=== PATIENT | female | born 1935 | race Caucasian/White ===

== ENCOUNTER 2019-06-17 08:15 | Outpatient (RCR) | payer MEDICARE, SELFPAY | END 2019-12-27 23:59 | disposition home or self-care (01) | LOC: OPREHAB 08:15 | PROVIDERS: PCP Emergency Medicine | DX: M97.11XD Periprosthetic fracture around internal prosthetic right knee joint, subsequent encounter (principal) | CPT/HCPCS: 97110; 97162 ==

== ENCOUNTER 2019-09-22 13:56 | Outpatient (CLI) | payer MEDICARE, SELFPAY ==
--- NOTE | ~2019-09-22 | CT_ITS ---
EXAMINATION: CTA abd aorta runoff DATE: 09/22/2019 15:32 INDICATION: Ulcer of the left lower extremity TECHNIQUE: Computed tomographic angiography (CTA) of the abdomen, pelvis, and both lower extremities was performed with 150 mL Omnipaque-350 intravenous contrast. The dose-length product (DLP) was 1872. 34 mGy-cm. Maximum intensity projection 3D-reconstructions of the arteries were created by the [employer] on a separate workstation. Automated exposure control and iterative reconstruction technique w ere employed. COMPARISON: None. FINDINGS: ABDOMINAL AORTA AND ITS BRANCHES: There is minimal calcified atherosclerosis of the aorta without aneurysm or dissection. The splenic a rtery arises directly from the abdominal aorta. Single renal arteries are present. The superior mesen teric artery and inferior mesenteric artery appear normal. PELVIC VASCULATURE: There is minimal calcified atherosclerosis without hemodynamically significant stenosis. RIGHT LOWER EXTREMITY VASCULATURE: Streak artifact from orthopedic hardware in the right femur are somewhat limits evaluation of the thy roid in the vessels however, no hemodynamically significant stenosis is identified. There is a three- vessel runoff at the ankle. LEFT LOWER EXTREMITY VASCULATURE: Streak artifact from knee arthroplasty limits evaluation of the popliteal artery. The peroneal artery is diminutive in its distal aspect just above the ankle. There is a two-vessel runoff at the ankle. No additional hemodynamically significant stenosis is identified. ADDITIONAL FINDINGS: There is mild dependent atelectasis of the visualized lung bases. The heart size is normal. A moderat e-sized sliding hiatal hernia is present. The liver, gallbladder, pancreas, and adrenal glands are no rmal. Punctate calcifications in an otherwise normal spleen likely represent healed granulomatous dis ease. An IVC filter is noted. There is cortical thinning of the kidneys. No pathologically enlarged a bdominal or pelvic lymph nodes are identified. There is no free intraperitoneal gas or evidence of migdalia wel obstruction. Colonic diverticulosis is present without evidence of diverticulitis. There is a rig ht inguinal hernia containing a short segment of nonobstructed small bowel. There is severe lumbar sp ondylosis. There is a burst fracture of T12 with vertebroplasty change. There appears to be asymmetri c soft tissue edema of the left foot compared to the right. IMPRESSION: 1. Diminutive distal peroneal artery with two-vessel runoff at the left ankle. 2. Right inguinal hernia containing a short segment of nonobstructed small bowel. Reviewed, dictated and finalized at location A. ORN PHOTOGRAPHER IMPRESSION: 1. Diminutive distal peroneal artery with two-vessel runoff at the left ankle. 2. Right inguinal hernia containing a short segment of nonobstructed small herve l.
[2019-09-22 15:04] LABS: Blood Urea Nitrogen 48 mg/dL (8-26); Estimated Glomerular Filt Rate 33
== END 2019-09-22 13:57 | disposition home or self-care (01) ==
PROVIDERS: Visit Provider Internal Medicine Cardiovascular Disease
DX: L97.929 Non-pressure chronic ulcer of unspecified part of left lower leg with unspecified severity (principal); K40.90 Unilateral inguinal hernia, without obstruction or gangrene, not specified as recurrent
CPT/HCPCS: 75635; Q9967

== ENCOUNTER 2019-11-22 07:20 | Outpatient (RCR) | payer MEDICARE, SELFPAY ==
[2019-09-20 13:50] VITALS: BMI 38.1
--- NOTE | 2019-10-25 13:18 | PCWOUND ---
WOCNNOTE Patient cancelled due to illness, rescheduled.
--- NOTE | 2019-11-22 12:32 | OPWOUND ---
Visit Care Team Role Provider Type Primary Care Provider Jeovany Skinner MD Attending Provider Physician Wound Assessment Report Outpatient Wound/Drain Assessment Start: 09/20/19 13:44 Freq: .EACH VISIT Status: Active Protocol: Document 11/22/19 12:27 [facility] (Rec: 11/22/19 12:29 [facility] [id number]) Wound Assessment Left Anterior Lower Leg(s) Wound Type Ulcer, Venous Stasis Wound Description Draining,Unapproximated Surrounding Tissue Edematous, Pitting Drainage Amount Moderate Drainage Description Serosanguinous Drainage Odor None Dressing Status Changed Dressing Type Gauze Pads,Mepilex Transfer, Wound Gel - Silver Wound Cleanser Type SAF Clens Length (cm) 3 Width (cm) 3 Depth (cm) 0.3 Healthy Tissue (%) 60 Slough (%) 40 Additional Wound Comments 4+ pitting edema to the lower leg and foot. Patient not wearing her compression stockings at visit. Surrounding tissue without erythema,warmth. Will continue the current treatment plan. cleansed wound bed of slough. Silver gel applied to the wound bed, covered with Mepilex transfer and a dry gauze dressing. Patient has a moderate amount of discomort with debridement of wound. Will continue to follow every two weeks for treatment. Pateint refuses to wear compression or try compression wrap therapy for healing. Educated on need for comrpession. pt states understanding. wound remains the same size. patient still refuses compression therapy.
== END 2019-12-19 23:59 | disposition home or self-care (01) ==
LOC: ANHWOC 07:20
PROVIDERS: Visit Provider Internal Medicine Cardiovascular Disease
DX: L97.929 Non-pressure chronic ulcer of unspecified part of left lower leg with unspecified severity (principal)
CPT/HCPCS: 99212; 99213; G0463

== ENCOUNTER 2020-01-13 12:30 | Outpatient (RCR) | payer MEDICARE, SELFPAY ==
--- NOTE | 2019-11-15 14:43 | PTOPEVAL ---
PHYSICAL THERAPY EVALUATION AND PLAN OF CARE Thank you for referring this patient to [facility]. Zohreh will be scheduled for physical therapy 2x/week for 4-6weeks. Please review, sign, date and return this plan of care FIDENCIO. I agree with and certify that the following plan of care is medically necessary. 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 She was in and out of the intermediate for almost a year . She was at home when she broke the femur the 2nd time. The 2nd time was near [place] of 2018. She has internal fixation of right knee joint. She went to [facility] for almost 3 months for rehabilitation most recently. She has been home from [facility] since July 2019. She feels as though the knee is getting worse in the sense that it is getting tighter and it pops when I sit and when I stand. 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
--- NOTE | 2019-11-29 10:38 | PCPTNOTE ---
Patient called & cancelled scheduled appointment this date stated she overslept
--- NOTE | 2019-12-01 14:56 | PCPTNOTE ---
Patient arrived to schedule appointment an hour after appointment time stating she believes she broke her big toe having difficulty getting foot into shoe taking more time to get ready. Apologized to patient about being unable to make up her appointment at that time due to fully booked schedule and offered a later appointment due the day but she declined. Educated patient on calling MD if she is concerned about her toe and will see her next week.
--- NOTE | 2019-12-09 10:33 | PTOPEVAL ---
PHYSICAL THERAPY PLAN OF CARE UPDATE AND PROGRESS REPORT Thank you for referring Zohreh Oakes to [facility]. I recommend Zohreh continue skilled PT 2x/week for 4 weeks to continue strengthening and improving function. Please review, sign, date and return this plan of care FIDENCIO. I agree with and certify that the following plan of care is medically necessary. 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 Reports that Family while there continues to be quite a bit of popping in the knee is seems to be less than before. Also states that the pain is overall better Pain Assessment Timing of Pain Assessment Timing of Pain Assessment Pre-Treatment Pain Scale Pain Scale Used Numeric (1 - 10) Self Report Pain Assessment Right Knee(s) Reported Pain Level 4 Pain Description Aching,Soreness,Tightness Pain Frequency Chronic,Intermittent Pain Aggravating Factors Exercise/Activity,Walking, Weight Bearing/Standing Pain Behaviors None Pain Score Pain Score 4: Self Report Lower Extremity Range of Motion Knee Range of Motion Right Knee Flexion Range of Motion - Active 82 Knee Extension Range of Motion - Active 15 Query Text: Lower Extremity Muscle Strength Testing Hip Strength Right Hip Flexion Strength 4+ Good + Hip Extension Strength 3+ Fair + Hip Abduction Strength 3- Fair - Knee Strength Right Knee Flexion Strength 4 Good Knee Extension Strength 4+ Good + Balance Assessment Witt Balance Assessment Sitting to Standing Independent w/Hands Unsupported Stance Ability Safely- 2 minutes Sitting Unsupported, Feet on Floor Safely- 2 minutes Standing to Sitting Assist, Use Legs on Chair Transfer Ability Safely, Hand Use Unsupported Stance- Eyes Closed Supervision, 10 seconds Unsupported Stance- Feet Together Independent, 1 minute Reaching Forward while Standing Safely, 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
--- NOTE | 2019-12-16 10:22 | PCPTNOTE ---
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
--- NOTE | 2019-12-20 07:50 | PCPTNOTE ---
Patient called & cancelled scheduled appointment this weeks due to going out of town.
--- NOTE | 2020-01-05 13:11 | PTOPEVAL ---
PHYSICAL THERAPY PLAN OF CARE UPDATE AND PROGRESS REPORT Thank you for referring Zohreh Oakes to [facility]. I recommend Carleen continue PT 1-2x/week for 4 weeks. Please review, sign, date and return this plan of care FIDENCIO. I agree with and certify that the following plan of care is medically necessary. 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 She reports that overall her pain has improved, but that the popping in the knee is the same. The popping is not as painful as it was. Self Report Pain Assessment Right Knee(s) Reported Pain Level 2 Pain Description Aching,Soreness Pain Frequency Chronic,Intermittent Pain Aggravating Factors Exercise/Activity,Walking, Weight Bearing/Standing Pain Behaviors None Pain Score Pain Score 2: Self Report Lower Extremity Range of Motion Knee Range of Motion Right Knee Flexion Range of Motion - Active 96 Knee Extension Range of Motion - Active 6 Query Text: Lower Extremity Muscle Strength Testing Hip Strength Right Hip Flexion Strength 5 Normal Hip Extension Strength 3+ Fair + Hip Abduction Strength 3 Fair Knee Strength Right Knee Flexion Strength 5 Normal Knee Extension Strength 4+ Good + Witt Balance Assessment Sitting to Standing Independent w/Hands Unsupported Stance Ability Safely- 2 minutes Sitting Unsupported, Feet on Floor Safely- 2 minutes Standing to Sitting Assist, Control w/Hands Transfer Ability Safely, Hand Use Unsupported Stance- Eyes Closed Safely, 10 seconds Unsupported Stance- Feet Together Independent, 1 minute Reaching Forward while Standing Safely, 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
--- NOTE | 2020-01-17 10:48 | PCPTNOTE ---
PHYSICAL THERAPY DISCHARGE NOTE Patient:Zohreh Oakes Date of :1935 This clinic was notified that patient is going to start working with home health care physical therapy; therefore (he/she) will be discharged at this time. Patient?s initial visit was on 11/15/2019. The goals have been partially met. Thank you for referring this patient to [facility]. Please review, sign, date and return this discharge summary FIDENCIO. I have been updated about the patient's current status and I agree with discharge from the above service at this time. Referring Physician Date
== END 2020-01-17 12:12 | disposition home or self-care (01) ==
LOC: ANHPT 12:30
DX: M97.11XD Periprosthetic fracture around internal prosthetic right knee joint, subsequent encounter (principal)
CPT/HCPCS: 97110; 97112; 97140; 97162

== ENCOUNTER 2021-01-11 12:02 | Outpatient (CLI) | payer MEDICARE, SELFPAY ==
--- NOTE | ~2021-01-11 | XR_ITS ---
XR_[id number]_CR DATE: 01/11/2021 12:22 INDICATION: Neck pain, right hand tingling TECHNIQUE: Open-mouth, AP, lateral views COMPARISON: None FINDINGS: Multiple surgical clips are noted in the anterior lower medial left cervical soft tissues. There is diffuse osteopenia. C1 and C2 are normally aligned and the odontoid process is intact. There is moderate degenerative disc disease at C2-3. There is severe degenerative disc disease at C3-4. There is moderately severe degenerative disc disease at C5-6 and C6-7. No fracture or dislocation or locked facet. No prevertebral soft tissue swelling. IMPRESSION: Diffuse osteopenia Multi-level degenerative disc disease Reviewed, dictated and finalized at Location A. Reviewed, dictated and finalized at location B.
== END 2021-01-11 12:03 | disposition home or self-care (01) ==
LOC: ANHIMG 12:09
PROVIDERS: PCP Emergency Medicine; Visit Provider Emergency Medicine
DX: R20.0 Anesthesia of skin (principal); R20.2 Paresthesia of skin; M85.88 Other specified disorders of bone density and structure, other site; M50.30 Other cervical disc degeneration, unspecified cervical region
CPT/HCPCS: 72040

== ENCOUNTER 2021-01-15 09:20 | Outpatient (CLI) | payer MEDICARE, SELFPAY ==
--- NOTE | ~2021-01-15 | MM_ITS ---
EXAMINATION: MM screening jayme BI w néstor HISTORY: Screening mammogram TECHNIQUE: Craniocaudal and mediolateral oblique 3-D tomosynthesis images were obtained and synthetic 2-D images were generated. CAD analysis was submitted and interpreted. COMPARISON: , to bilateral digital screening mammogram examinations BREAST PARENCHYMAL COMPOSITION: There are scattered areas of fibroglandular density. FINDINGS: There is no evidence of suspicious mass, calcification, or architectural distortion to sugg est malignancy in either breast. There has been no suspicious interval change. IMPRESSION: 1. No mammographic evidence of malignancy. 2. Recommend routine screening mammography in one year. BI-RADS Category 1: Negative Reviewed, dictated and finalized at location A.
== END 2021-01-15 09:21 | disposition home or self-care (01) ==
PROVIDERS: PCP Emergency Medicine; Visit Provider Emergency Medicine
DX: Z12.31 Encounter for screening mammogram for malignant neoplasm of breast (principal)
CPT/HCPCS: 77063; 77067

== ENCOUNTER → 2021-02-27 11:04 | Outpatient (CLI) | payer MEDICARE, SELFPAY ==
--- NOTE | ~2021-02-27 | XR_ITS ---
XR hip RT 2V w AP pelvis DATE: 02/27/2021 12:15 INDICATION: Right hip pain TECHNIQUE: AP pelvis. AP and lateral views of the right hip and right femur COMPARISON: 01/06/2015 right hip FINDINGS: An IVC filter is noted at the L2-3 level. Diffuse osteopenia. Multilevel degenerative disc disease of the lumbar and lumbosacral spine. The pubic symphysis and sacroiliac joints are intact. 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 No pelvic fracture or bone destruction is detected. Right bipolar hip prosthesis. There is a long plate secured by transverse screws along the lateral aspect of the femoral shaft and lateral femoral condyle. There is a long stem femoral articular prosthesis a right knee joint replacement. There is a recent, dictated fracture of the greater trochanter of the right femur IMPRESSION: Recent comminuted fracture of the greater trochanter of the right femur Right hip and knee replacements, right femoral plate and screws Diffuse osteopenia Reviewed, dictated and finalized at location A. IMPRESSION: Recent comminuted fracture of the greater trochanter of the right f emur Right hip and knee replacements, right femoral plate and screws Diffuse osteopenia
== END ==
PROVIDERS: PCP Emergency Medicine; Visit Provider Emergency Medicine
DX: M85.851 Other specified disorders of bone density and structure, right thigh (principal)
CPT/HCPCS: 73502

== ENCOUNTER 2021-07-31 00:18 | Day surgery (SDC) | payer MEDICARE, SELFPAY ==
[2021-07-16 14:18] VITALS: BMI 32.6
[2021-07-31 09:05] VITALS: BP 155/81; PULSE 76; RESP 18; TEMP 36.6; O2SAT 99
[2021-07-31] MEDS: LACTATED RINGERS 1,000 ML 150 ML IV CONT (09:22)
--- NOTE | 2021-07-31 09:43 | WPDANESEPPF ---
Anes - Initial Pre Proc Eval Procedure: Operation Date: 07/31/21 10:00 Proposed Procedures p Esophagogastroduodenoscopy - Bakari Jensen MD Date/Time: 07/31/21 09:43 Surgeon: Bakari Jensen MD Pre Op Diagnosis: dysphagia Patient Data Age: 85 Gender: F Height: 1.65 m Weight: 89.1 kg Last Vital Signs Temp 97.9 F 07/31/21 09:05 Pulse 76 07/31/21 09:05 Resp 18 07/31/21 09:05 BP 155/81 H 07/31/21 09:05 Pulse Ox 99 07/31/21 09:05 Allergies Allergy/AdvReac Type Severity Reaction Status Date / Time Penicillins Allergy Severe Hives Verified 07/31/21 09:04 morphine Allergy Intermediate Hallucinati Verified 07/31/21 09:04 ng Home Medications Medication Instructions Recorded Confirmed Type ascorbic acid (vitamin C) 500 mg PO DAILY 08/06/19 07/17/21 History aspirin 325 mg PO DAILY 08/06/19 07/17/21 History atorvastatin 10 mg PO DAILY 08/06/19 07/17/21 History clotrimazole 1 applic TOPICAL BID 08/06/19 07/17/21 History furosemide 40 mg PO BID 08/06/19 07/17/21 History hydrocodone-acetaminophen 1 tablet PO Q6H PRN 08/06/19 07/17/21 History metoprolol tartrate 12.5 mg PO BID 08/06/19 07/17/21 History multivitamin,[id number]-[id number]-mtesggyl 1 tablet PO DAILY 08/06/19 07/17/21 History [Complete Multivitamin] potassium chloride 20 meq PO DAILY 08/06/19 07/17/21 History ropinirole 2 mg tablet See Rx Instructions .ROUTE 05/06/21 07/17/21 Rx .COMPLEX #270 tablet betamethasone valerate 0.1 % See Rx Instructions .ROUTE 07/15/21 07/17/21 Rx topical cream .COMPLEX PRN #45 gm levothyroxine 88 mcg PO DAILY 07/17/21 07/17/21 History venlafaxine 75 mg PO DAILY 07/17/21 07/17/21 History Patient hx anesthesia problems: none Family hx anesthesia problems: none Results Review: All pre-operative results and documents have been reviewed as part of the pre-operative evaluation. [facility] Past Medical History Medical History (Updated 07/29/21 @ 14:58 by Rema Liriano) Fracture of knee prosthesis Hypertension Minor head injury without loss of consciousness Numbness and tingling in left hand Other fracture of right femur, initial encounter for closed fracture Unspecified injury of head, sequela Surgical History Surgical History History of orthopedic surgery Family History Family History Sibling Family history of multiple sclerosis, Onset Age: 43 Social History Social History Smoking status: Former smoker Tobacco type: cigarettes Alcohol intake: current Alcohol use details: OCCASIONALLY Substance use: current Substance use type: marijuana Other substance usage details: OCCASIONALLY FOR PAIN Living arrangements: alone Gender identity (if verbalized by the patient): Female Spiritual care concerns: No Anes - Eval Final PreProcedure Day of Procedure 07/31/21 09:43 Patient weight: obese Heart: regular rate and rhythm Lungs: clear to auscultation Airway: Mallampati scale class II Neurological: alert and oriented Last oral intake: >/= 8 hours ASA classification: III Emergent: no Anesthetic plan: proceed Anesthesia type and monitoring: general GIVS and standard monitoring Results Review: All pre-operative results and documents have been reviewed as part of the pre-operative evaluation. Informed Consent: The patient's anesthetic plan and its attendant risks and benefits were discussed with the patient/family/POA. Questions were solicited and answers provided to the satisfaction of the patient/family/POA.
--- NOTE | 2021-07-31 09:44 | PM.HPGS ---
History of Present Illness History of Present Illness Consent: Risks, benefits, and alternatives have been discussed and questions answered. Patient agrees to proceed with procedure. Chief complaint: dysphagia Narrative: Zohreh Oakes is a 85 year old female here with change voice and choking sensation that started after cardiology performed transesophageal echocardiogram, she wonders if could have damage vocal cords (she can not sign as she used to anymore). Review of Systems Constitutional: Constitutional: Denies headache(s) and Denies weakness Eyes: Eyes: Denies blurry vision ENT: Reports Normal hearing present, Denies headache(s) and Denies neck pain Cardiovascular: Cardiovascular: Denies chest pain and Denies dyspnea Respiratory: Respiratory: Denies dyspnea Gastrointestinal: Gastrointestinal: Reports no additional gastrointestinal complaints Genitourinary: Genitourinary: Denies dysuria Musculoskeletal: Musculoskeletal: Denies neck pain Integumentary/Breasts: Skin/Breast: Denies dry skin Neurologic: Reports Normal hearing present, Denies headache(s) and Denies weakness Psychiatric: Psychiatric: Denies anxiety Endocrine: Endocrine: Denies change in body appearance Hematologic/Lymphatic: Hematologic/Lymphatic: Denies easy bleeding Allergic/Immunologic: Allergic/Immunologic: Denies urticaria PMFSH Past Medical History Medical History (Updated 07/31/21 @ 09:46 by Bakari Jensen MD) Choking Fracture of knee prosthesis Hoarseness of voice Hypertension Minor head injury without loss of consciousness Numbness and tingling in left hand Other fracture of right femur, initial encounter for closed fracture Unspecified injury of head, sequela Surgical History Surgical History History of orthopedic surgery Family History Family History Sibling Family history of multiple sclerosis, Onset Age: 43 Social History Social History Smoking status: Former smoker Tobacco type: cigarettes Alcohol intake: current Alcohol use details: OCCASIONALLY Substance use: current Substance use type: marijuana Other substance usage details: OCCASIONALLY FOR PAIN Living arrangements: alone Gender identity (if verbalized by the patient): Female Spiritual care concerns: No Meds Home Medications and Allergies Home Medications Medication Instructions Recorded Confirmed Type ascorbic acid (vitamin C) 500 mg PO DAILY 08/06/19 07/17/21 History aspirin 325 mg PO DAILY 08/06/19 07/17/21 History atorvastatin 10 mg PO DAILY 08/06/19 07/17/21 History clotrimazole 1 applic TOPICAL BID 08/06/19 07/17/21 History furosemide 40 mg PO BID 08/06/19 07/17/21 History hydrocodone-acetaminophen 1 tablet PO Q6H PRN 08/06/19 07/17/21 History metoprolol tartrate 12.5 mg PO BID 08/06/19 07/17/21 History multivitamin,[id number] 1 tablet PO DAILY 08/06/19 07/17/21 History [Complete Multivitamin] potassium chloride 20 meq PO DAILY 08/06/19 07/17/21 History ropinirole 2 mg tablet See Rx Instructions .ROUTE 05/06/21 07/17/21 Rx .COMPLEX #270 tablet betamethasone valerate 0.1 % See Rx Instructions .ROUTE 07/15/21 07/17/21 Rx topical cream .COMPLEX PRN #45 gm levothyroxine 88 mcg PO DAILY 07/17/21 07/17/21 History venlafaxine 75 mg PO DAILY 07/17/21 07/17/21 History Allergies Allergy/AdvReac Type Severity Reaction Status Date / Time Penicillins Allergy Severe Hives Verified 07/31/21 09:04 morphine Allergy Intermediate Hallucinati Verified 07/31/21 09:04 ng Vital Signs Vital Signs - 24 hr 07/31/21 09:05 Temperature 97.9 F Pulse Rate 76 Respiratory Rate 18 Blood Pressure 155/81 H Pulse Oximetry 99 Exam Const: General: comfortable and no acute distress HENMT: General nose exam: Normal nares prese
[2021-07-31 10:02] VITALS: BP 132/66; PULSE 65; RESP 22; O2SAT 96
[2021-07-31 10:12] VITALS: BP 128/67; PULSE 61; RESP 22; O2SAT 96
[2021-07-31 10:22] VITALS: BP 136/99; PULSE 71; RESP 21; O2SAT 99
== END 2021-07-31 10:43 | disposition home or self-care (01) ==
PROVIDERS: PCP Emergency Medicine; Visit Provider Internal Medicine Gastroenterology
PROC: 0DJ08ZZ Inspection of Upper Intestinal Tract, Via Natural or Artificial Opening Endoscopic (ICD-10-PCS; CPT 43235; principal; 2021-07-31 10:00)
DX: K44.9 Diaphragmatic hernia without obstruction or gangrene (principal); K29.50 Unspecified chronic gastritis without bleeding; I10 Essential (primary) hypertension; Z79.82 Long term (current) use of aspirin; Z87.891 Personal history of nicotine dependence; F12.90 Cannabis use, unspecified, uncomplicated; E66.9 Obesity, unspecified; Z68.32 Body mass index [BMI] 32.0-32.9, adult
CPT/HCPCS: 43239; 88305; J2704; J7120

== ENCOUNTER 2021-08-15 14:58 | Emergency (ER) | payer OTHER, MEDICARE, SELFPAY ==
--- NOTE | ~2021-08-15 | XR_ITS ---
XR chest 1V portable 08/15/2021 16:03 Indication: Chest pain Procedure: AP portable chest Comparison: Comparison to multiple prior studies sequentially, with oldest reviewed study dated 01/2012. Findings: Cardiomegaly. Elevation of the right diaphragm is chronic, suspicious for phrenic nerve par alysis. No focal air space disease, pulmonary edema, pleural effusion or suspected pneumothorax. Ther e is prominent right paratracheal soft tissue, suspicious for mediastinal lymphadenopathy. Impression: 1: Prominent right paratracheal soft tissue, suspicious for mediastinal lymphadenopathy. Recommend co rrelation with contrast-enhanced CT chest. Reviewed, dictated and finalized at location A. SOLUTION ARCHITECT Impression: 1: Prominent right paratracheal soft tissue, suspicious for mediastinal lymphad enopathy. Recommend correlation with contrast-enhanced CT chest.
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
[2021-08-15 14:59] VITALS: BP 131/51; PULSE 61; RESP 18; TEMP 36.8; O2SAT 94
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
[2021-08-15 16:26] LABS: Basophils Percent Auto 0.3 % (0.2-1.2); Eosinophils Absolute Auto 0.1 K/mm3 (0-0.3); Hematocrit 31.7 % (37.0-47.0); Hemoglobin 9.9 g/dL (12.0-15.0); Immature Granulocyte Absolute 0.01 K/mm3 (0.00-0.031); Immature Granulocyte Percent A 0.3 % (0-0.5); Lymphocytes Absolute Auto 0.61 K/mm3 (0.9-3.2); Lymphocytes Percent Auto 16.9 % (18.3-44.2); Mean Corpuscular HGB Conc 31.2 g/dl (32-36); Mean Corpuscular Hemoglobin 28.9 pg (26-34); Mean Corpuscular Volume 92.7 fl (80-100); Mean Platelet Volume 9.3 fl (7.4-10.4); Monocytes Absolute Auto 0.5 K/mm3 (0.1-0.6); Monocytes Percent Auto 12.4 % (2.6-8.5); Neutrophils Absolute Auto 2.4 K/mm3 (1.3-6.7); Neutrophils Percent Auto 67.1 % (45.5-73.1); Platelet Count Result 167 k/mm3 (150-375); Red Blood Count 3.42 M/mm3 (4.2-5.4); Red Cell Distribution Width 14.7 % (11.5-14.5); White Blood Count 3.6 K/mm3 (4.5-10.0)
[2021-08-15 16:37] LABS: Anion Gap 8 mmol/L (8-16); Blood Urea Nitrogen 45 mg/dL (7-17); Calcium 8.7 mg/dL (8.4-10.2); Carbon Dioxide 35 mmol/L (22-30); Chloride 95 mmol/L (98-107); Estimated CRCL calculation 29 ml/min; Estimated Glomerular Filt Rate 33; Glucose 96 mg/dL (65-110); Potassium 3.5 mmol/L (3.4-5.0); Sodium 138 mmol/L (137-145)
[2021-08-15 16:38] VITALS: BP 100/53; PULSE 94; RESP 19; O2SAT 98
== END 2021-08-15 19:02 | disposition home or self-care (01) ==
PROVIDERS: Emergency Provider Emergency Medicine; PCP Emergency Medicine
DX: S20.213A Contusion of bilateral front wall of thorax, initial encounter (principal); S80.01XA Contusion of right knee, initial encounter; S92.411A Displaced fracture of proximal phalanx of right great toe, initial encounter for closed fracture; I10 Essential (primary) hypertension; Z87.891 Personal history of nicotine dependence; M85.871 Other specified disorders of bone density and structure, right ankle and foot; M85.862 Other specified disorders of bone density and structure, left lower leg; M85.861 Other specified disorders of bone density and structure, right lower leg; Z96.653 Presence of artificial knee joint, bilateral; K44.9 Diaphragmatic hernia without obstruction or gangrene; V43.52XA Car driver injured in collision with other type car in traffic accident, initial encounter
CPT/HCPCS: 36415; 70450; 71045; 71260; 73564; 73630; 80048; 85025; 99284; Q9967

== ENCOUNTER → 2022-01-24 11:24 | Outpatient (CLI) | payer MEDICARE, SELFPAY ==
--- NOTE | ~2022-01-24 | XR_ITS ---
EXAMINATION: XR thoracic spine 2V DATE: 01/24/2022 12:22 INDICATION: Thoracic back pain TECHNIQUE: AP, lateral and lateral swimmer's views of the thoracic spine were obtained. COMPARISON: CT, 08/15/2021 FINDINGS: Bone alignment is abnormal. There is no fracture. There is moderate to severe loss of inter vertebral disc space height at multiple levels in the thoracic spine. There are vertebroplasty change s at T12. The thoracic vertebral body heights are otherwise normal. A partially imaged IVC filter is noted. There are surgical changes in the left neck. IMPRESSION: 1. Severe thoracic spondylosis without acute findings or significant interval change. Reviewed, dictated and finalized at location F. IMPRESSION: 1. Severe thoracic spondylosis without acute findings or significant interval marcus roberts.
--- NOTE | ~2022-01-24 | XR_ITS ---
EXAMINATION: XR lumbar spine 2-3V DATE: 01/24/2022 12:22 INDICATION: Low back pain TECHNIQUE: Anteroposterior and lateral views of the lumbar spine, and cone-down lateral view of the l umbosacral junction were obtained. COMPARISON: 01/06/2015 FINDINGS: There is vertebroplasty change at T12. No lumbar fracture is identified. There is severe lo ss of intervertebral disc space height at L4-5 and L5-S1. The vertebral body heights are maintained. There is severe facet osteoarthritis of the lower lumbar spine. An IVC filter is noted. There are caleb nges of right hip hemiarthroplasty. The bowel gas pattern is normal. IMPRESSION: 1. Severe lumbar spondylosis without acute findings or significant interval change. Reviewed, dictated and finalized at location F. IMPRESSION: 1. Severe lumbar spondylosis without acute findings or significant interval caleb nge.
== END ==
PROVIDERS: PCP Emergency Medicine; Visit Provider Emergency Medicine
DX: M47.815 Spondylosis without myelopathy or radiculopathy, thoracolumbar region (principal); M47.817 Spondylosis without myelopathy or radiculopathy, lumbosacral region
CPT/HCPCS: 72070; 72100

== ENCOUNTER → 2022-04-03 13:19 | Outpatient (CLI) | payer MEDICARE, SELFPAY ==
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
== END ==
PROVIDERS: PCP Internal Medicine Cardiovascular Disease; Visit Provider Internal Medicine Cardiovascular Disease
DX: R60.0 Localized edema (principal)
CPT/HCPCS: 93971

== ENCOUNTER → 2022-04-15 12:39 | Outpatient (CLI) | payer MEDICARE, SELFPAY ==
--- NOTE | ~2022-04-15 | XR_ITS ---
EXAMINATION: XR hip RT 2V w AP pelvis INDICATION: Right hip pain TECHNIQUE: AP view of the pelvis and two views of the right hip are obtained on five radiographs. COMPARISON: 02/27/2021 FINDINGS: There are changes of right hip arthroplasty. The previously described greater trochanter fr acture of the right femur has healed. No acute fracture is identified. There is orthopedic hardware o f the right femur traversing a healed distal shaft fracture of the femur. Changes of right hip arthro plasty are also noted. There are phleboliths of the pelvis. IMPRESSION: 1. No acute osseous abnormality. Reviewed, dictated and finalized at location B.
== END ==
PROVIDERS: PCP Emergency Medicine; Visit Provider Emergency Medicine
DX: R52 Pain, unspecified (principal)
CPT/HCPCS: 73502

== ENCOUNTER → 2022-04-30 11:04 | Outpatient (CLI) | payer MEDICARE, SELFPAY ==
--- NOTE | ~2022-04-30 | CT_ITS ---
EXAMINATION: CT abdomen pelvis wo con DATE: 04/30/2022 11:32 INDICATION: Abdominal pain TECHNIQUE: Computed tomography (CT) of the abdomen and pelvis was performed without intravenous contr ast. The dose-length product (DLP) was 953.19 mGy-cm. Automated exposure control and iterative recons truction technique were employed. COMPARISON: 09/22/2019 FINDINGS: Minimal dependent atelectasis is present in the lung bases. Cardiomegaly is noted. There is a moderate-sized sliding hiatal hernia. Calcified coronary artery atherosclerosis is noted. Punctate calcifications in an otherwise normal spleen likely represent healed granulomatous disease. The live r, pancreas, and adrenal glands are normal. Stones are present in the nondistended gallbladder. The r ight kidney is unremarkable. There is a 2 mm nonobstructing stone of the left kidney lower pole. No p athologically enlarged abdominal or pelvic lymph nodes are identified. There is calcified atheroscler osis of the aorta and many of the other arteries. Colonic diverticulosis is present without evidence of diverticulitis. There are changes of right hip arthroplasty. There is a tiny umbilical hernia cont aining fat. There is a right inguinal hernia containing a short segment of nonobstructed small bowel. There is severe lumbar spondylosis. Vertebroplasty changes noted at T12 and L1. IMPRESSION: 1. Right inguinal hernia containing a short segment of nonobstructed small bowel. 2. Diverticulosis without evidence of diverticulitis. Reviewed, dictated and finalized at location B. IMPRESSION: 1. Right inguinal hernia containing a short segment of nonobstructed small herve l. 2. Diverticulosis without evidence of diverticulitis.
== END ==
PROVIDERS: PCP Emergency Medicine; Visit Provider Emergency Medicine
DX: K57.30 Diverticulosis of large intestine without perforation or abscess without bleeding (principal); K40.90 Unilateral inguinal hernia, without obstruction or gangrene, not specified as recurrent
CPT/HCPCS: 74176

== ENCOUNTER 2022-05-09 10:18 | Outpatient (CLI) | payer MEDICARE, SELFPAY ==
[2022-05-09 10:54] LABS: Anion Gap 8 mmol/L (8-16); Blood Urea Nitrogen 35 mg/dL (7-17); Calcium 9.6 mg/dL (8.4-10.2); Carbon Dioxide 36 mmol/L (22-30); Chloride 95 mmol/L (98-107); Estimated Glomerular Filt Rate 53; Glucose 141 mg/dL (65-110); Potassium 4.8 mmol/L (3.4-5.0); Sodium 139 mmol/L (137-145)
[2022-05-09 10:58] LABS: Partial Thromboplastin Time 26.4 SECONDS (22.3-36.8)
== END 2022-05-09 10:19 | disposition home or self-care (01) ==
LOC: ANHSURGERY 10:21
PROVIDERS: Anesthesiology; PCP Emergency Medicine; Visit Provider Urology
DX: N36.42 Intrinsic sphincter deficiency (ISD) (principal); N18.30 Chronic kidney disease, stage 3 unspecified
CPT/HCPCS: 36415; 80048; 85610; 85730; 87077; 87086; 87186

== ENCOUNTER 2022-05-16 01:29 | Day surgery (SDC) | payer MEDICARE, SELFPAY ==
[2022-05-07 10:00] VITALS: BMI 31.8
--- NOTE | 2022-05-07 10:18 | PC.NURSE ---
Report to the Outpatient Waiting Room, entrance under the green pavilion located off [facility], at time 8:30 on date 05/16/22. OR Time: 10:30. Time changes happen often and if your time is changed the preop area will call you the afternoon before. - You and your visitor will be asked to self-screen and do not enter if you have any COVID symptoms. - Only one visitor and NO children visitors are allowed at this time. - The patient visitor is requested to leave or wait in car when not with patient due to restrictions. - A mask is required within the hospital. Patients may have clear liquids (water, carbonated beverages, clear teas, apple juice) until 3 hours prior to surgery (7:30) with a maximum of 20 ounces. - No food from midnight until time of surgery Take the following medications with a SIP of water the morning of surgery: GABAPENTIN, METOPROLOL, LEVOTHYROXINE, ROPINIROLE, VENLAFAXINE, PAIN PILL (IF NEEDED) Medications to discontinue per physician: ASPIRIN, VITAMINS Date to take last dose: ASPIRIN 05/08, VITAMINS 05/12 Please no make-up, nail cay[place] islander, hairspray, perfume, deodorant, or body powder the day of surgery. No jewelry (including any body piercings) or valuables the day of surgery, leave them at home. Please take a shower or bath the night before, or the morning of, surgery with an antibacterial soap. Wear comfortable, loose fitting clothing. - Jewelry must be removed prior to entering the operating room. Rings and piercings that are not removed may be cut off. - The hospital will not accept responsibility for valuables. - Please leave all valuables, including medications, at home the day of surgery. If you are going home after surgery, a licensed straddle bug driver must drive you home. - NO public transportation without another adult. - We recommend that an adult stay with you for 24 hours following discharge. - We also recommend that you do not drive, make important decision, drink alcoholic beverages, or take any drugs that were not prescribed by your health care provider for at least 24 hours after your discharge time. Follow any additional instructions given to you from your surgeon. If you or anyone in your household have experienced Covid symptoms in the past week, please notify your surgeon or the nurse liaison at the phone number below for possible testing. Telephone instructions given to PT - TIFFANY PABLO and asked if any additional questions and then verbalized understanding. Patient advised to call surgeon office or pre surgery nurse liaison [phone] if any additional questions.
--- NOTE | 2022-05-11 06:21 | PM.IMHP ---
H&P: HPI History of Present Illness Date/Time: 05/11/22 06:21 Chief Complaint: incontinence Narrative: 86 yo with mixed incontinence. Has had botox for OAB. going forward with bulking agent for ISD Review of Systems Review of Systems: All systems reviewed & are unremarkable except as noted in HPI and below PMFSH Past Medical History Medical History Choking Fracture of knee prosthesis Hoarseness of voice Hypertension Minor head injury without loss of consciousness Numbness and tingling in left hand Other fracture of right femur, initial encounter for closed fracture Unspecified injury of head, sequela Surgical History Surgical History History of orthopedic surgery Family History Family History Sibling Family history of multiple sclerosis, Onset Age: 43 Social History Social History Smoking status: Former smoker Tobacco type: cigarettes Additional smoking assessment comments: IN LATE 70S Alcohol intake: current Alcohol use details: 2/MONTH Substance use: never Substance use type: does not use Other substance usage details: OCCASIONALLY FOR PAIN Gender identity (if verbalized by the patient): Female Spiritual care concerns: No Meds Home Medications and Allergies Home Medications Medication Instructions Recorded Confirmed Type ascorbic acid (vitamin C) 500 mg 500 mg PO DAILY 08/06/19 05/07/22 History chewable tablet aspirin 325 mg tablet 325 mg PO DAILY 08/06/19 05/07/22 History atorvastatin 10 mg tablet 10 mg PO DAILY 08/06/19 05/07/22 History metoprolol tartrate 25 mg tablet 12.5 mg PO BID 08/06/19 05/07/22 History multivitamin,ra-hnas-rtqslqsc 1 tablet PO DAILY 08/06/19 05/07/22 History (Complete Multivitamin tablet) potassium chloride 20 mEq 20 meq PO DAILY 08/06/19 05/07/22 History tablet,extended release gabapentin 100 mg capsule 100 mg PO TID 08/13/21 05/07/22 History hydrocodone 10 mg-acetaminophen 1 tablet PO Q6H PRN Pain 08/13/21 05/07/22 History 325 mg tablet furosemide 80 mg tablet 80 mg PO DAILY 09/04/21 05/07/22 History docusate sodium 100 mg capsule 100 mg PO BID 01/06/22 05/07/22 History (Colace) venlafaxine 150 mg 150 mg PO DAILY #90 caps 01/14/22 05/07/22 Rx capsule,extended release 24 hr omeprazole 20 mg capsule,delayed See Rx Instructions .Route 02/11/22 05/07/22 Rx release .COMPLEX #30 caps levothyroxine 88 mcg tablet 88 mcg PO DAILY #90 tabs 03/18/22 05/07/22 Rx ropinirole 4 mg tablet 4 mg PO BID #60 tabs 03/18/22 05/07/22 Rx betamethasone valerate 0.1 % See Rx Instructions .Route 04/29/22 05/07/22 Rx topical cream .COMPLEX PRN allergic reaction #45 grams Allergies Allergy/AdvReac Type Severity Reaction Status Date / Time Penicillins Allergy Severe Hives Verified 05/07/22 09:57 morphine Allergy Intermediate Hallucinati Verified 05/07/22 09:57 ng bumetanide Allergy Nausea Verified 05/07/22 09:57 Exam Narrative: NAD normal breathing normal body habitus Assessment and Plan Assessment and plan (1) Intrinsic sphincter deficiency (ISD): Code(s): N36.42 - Intrinsic sphincter deficiency (ISD) Status: Acute Assessment and Plan: cysto/bulknig agent
--- NOTE | 2022-05-16 07:23 | WPDHPUPDATE1 ---
History and Physical Update Update Date/Time: 05/16/22 07:23 History and Physical has been reviewed, including an updated exam of the patient. There are NO changes in the patient's condition. Risks, benefits, and alternatives have been discussed and questions answered. Patient agrees to proceed with procedure.
--- NOTE | 2022-05-16 07:54 | WPDANESEPPF ---
Anes - Initial Pre Proc Eval Procedure: Operation Date: 05/16/22 09:45 Proposed Procedures p Cystoscopy, Injection Bulking Agent - Barrington Epps MD Date/Time: 05/16/22 07:54 Surgeon: Barrington Epps MD Pre Op Diagnosis: Intrinsic Sphincter Deficiency Patient Data Age: 86 Gender: F Height: 1.65 m Weight: 87 kg Allergies Allergy/AdvReac Type Severity Reaction Status Date / Time Penicillins Allergy Severe Hives Verified 05/16/22 08:25 morphine Allergy Intermediate Hallucinati Verified 05/16/22 08:25 ng Sulfa (Sulfonamide Allergy Intermediate hives Verified 05/16/22 08:25 Antibiotics) bumetanide Allergy Nausea Verified 05/16/22 08:25 Home Medications Medication Instructions Recorded Confirmed Type ascorbic acid (vitamin C) 500 mg 500 mg PO DAILY 08/06/19 05/16/22 History chewable tablet aspirin 325 mg tablet 325 mg PO DAILY 08/06/19 05/16/22 History atorvastatin 10 mg tablet 10 mg PO DAILY 08/06/19 05/16/22 History metoprolol tartrate 25 mg tablet 12.5 mg PO BID 08/06/19 05/16/22 History multivitamin,gh-eeis-elbfowap 1 tablet PO DAILY 08/06/19 05/16/22 History (Complete Multivitamin tablet) potassium chloride 20 mEq 20 meq PO DAILY 08/06/19 05/16/22 History tablet,extended release gabapentin 100 mg capsule 100 mg PO TID 08/13/21 05/16/22 History hydrocodone 10 mg-acetaminophen 1 tablet PO Q6H PRN Pain 08/13/21 05/16/22 History 325 mg tablet furosemide 80 mg tablet 80 mg PO DAILY 09/04/21 05/16/22 History docusate sodium 100 mg capsule 100 mg PO BID 01/06/22 05/16/22 History (Colace) venlafaxine 150 mg 150 mg PO DAILY #90 caps 01/14/22 05/16/22 Rx capsule,extended release 24 hr omeprazole 20 mg capsule,delayed See Rx Instructions .Route 02/11/22 05/16/22 Rx release .COMPLEX #30 caps levothyroxine 88 mcg tablet 88 mcg PO DAILY #90 tabs 03/18/22 05/16/22 Rx ropinirole 4 mg tablet 4 mg PO BID #60 tabs 03/18/22 05/16/22 Rx betamethasone valerate 0.1 % See Rx Instructions .Route 04/29/22 05/16/22 Rx topical cream .COMPLEX PRN allergic reaction #45 grams Patient hx anesthesia problems: none Family hx anesthesia problems: none Results Review: All pre-operative results and documents have been reviewed as part of the pre-operative evaluation. [facility] Past Medical History Medical History (Updated 05/16/22 @ 07:56 by Gregor Singer MD) Afib Choking Chronic a-fib Chronic pain disorder CKD (chronic kidney disease), stage III Essential (primary) hypertension Fatigue Fracture of knee prosthesis History of blood transfusion History of brain tumor History of DVT (deep vein thrombosis) HLD (hyperlipidemia) Hoarseness of voice HTN (hypertension) Hypertension Hypothyroidism (acquired) Hypothyroidism, unspecified Lumbar spondylosis Major depressive disorder, single episode, unspecified Minor head injury without loss of consciousness Numbness and tingling in left hand Obesity Other fracture of right femur, initial encounter for closed fracture PAD (peripheral artery disease) Unspecified injury of head, sequela Surgical History Surgical History Brain tumor (benign) excised H/O thyroidectomy History of appendectomy History of back surgery History of hip replacement History of knee replacement Hx of tonsillectomy Family History Family History Sibling Family history of multiple sclerosis, Onset Age: 43 Father Acute myocardial infarction Mother , age 60 Heart disease Acute myocardial infarction Social History Social History (Updated 05/14/22 @ 14:31 by Silvia Braswell CMA) Smoking status: Former smoker Tobacco type: cigarettes Additional smoking assessment comments: IN LATE 70S Alcohol intake: current Alcohol use details: 2/MONTH Substance use: never Substance use type: does not use Other
[2022-05-16 08:15] VITALS: BP 125/53; PULSE 60; RESP 18; TEMP 36.1; O2SAT 95
[2022-05-16] MEDS: LACTATED RINGERS 1,000 ML 30 ML IV CONT (08:51)
[2022-05-16] MEDS: fentaNYL CITRATE INJ (*CRX) 100 MCG/2 ML VIAL 50 MCG IV PUSH (08:58)
[2022-05-16] MEDS: ceFAZolin 2 GM/D5W 50 ML 2 GM/50 ML BAG IVPB (09:40)
[2022-05-16] MEDS: LIDOCAINE HCL 2% GEL UROJET 10 ML PKG MUCOUS MEM (09:49)
[2022-05-16 10:03] VITALS: BP 109/51; PULSE 59; RESP 16; O2SAT 97
--- NOTE | 2022-05-16 10:09 | W.PM.PROC2 ---
Procedure Note - Detailed Date of Procedure 05/16/22 Pre-op Diagnosis Intrinsic Sphincter Deficiency Post-op Diagnosis Same Procedure Performed Cystoscopy with suburethral injection of implant material [id number] Surgeon Barrington Epps MD Anesthesia MAC Indications This is a patient with stress urinary incontinence due to intrinsic sphincter deficiency. They desires surgical correction. They understand the risk of bleeding, and infection, lack of efficacy, need for repeat procedures, obstructive voiding requiring catheterization. They agreed to proceed. She understands will not help her overactive bladder symptoms She understands reported success rates and possible need for repeat procedures Findings Open urethra consistent with intrinsic sphincter deficiency Description of Procedure The patient was correctly identified and informed consent was obtained. They were brought to the operating room. They were given MAC anesthesia. They were placed in the dorsal lithotomy position. They were prepped and draped in a sterile fashion. A time-out performed. Cystoscopy revealed no tumors in the bladder and an open urethra consistent with intrinsic sphincter deficiency. There was trabeculations and cellule formation. I chose a spot 2 cm distal the bladder neck. I injected my bulking agent circumferentially. I used 1 syringe total. I formed 4 pillows collapsing the urethra. Her bladder was left partially full. They were awakened and transferred to the PACU in stable condition. Implants Urethral bulking agent Estimated Blood Loss 1 Drains No Packing No Pathology None sent Complications No immediate complications Condition Stable Disposition PACU
[2022-05-16 10:30] VITALS: BP 122/54; PULSE 49; RESP 16; O2SAT 97
[2022-05-16 11:00] VITALS: BP 117/62; PULSE 49; RESP 16; O2SAT 97
== END 2022-05-16 11:18 | disposition home or self-care (01) ==
PROVIDERS: PCP Emergency Medicine; Visit Provider Urology
PROC: 3E0K8GC Introduction of Other Therapeutic Substance into Genitourinary Tract, Via Natural or Artificial Opening Endoscopic (ICD-10-PCS; CPT 51715; principal; 2022-05-16 09:45)
DX: N36.42 Intrinsic sphincter deficiency (ISD) (principal); N39.46 Mixed incontinence; I48.20 Chronic atrial fibrillation, unspecified; I12.9 Hypertensive chronic kidney disease with stage 1 through stage 4 chronic kidney disease, or unspecified chronic kidney disease; N18.30 Chronic kidney disease, stage 3 unspecified; E03.9 Hypothyroidism, unspecified; I73.9 Peripheral vascular disease, unspecified; G89.29 Other chronic pain; F32.A Depression, unspecified; E78.5 Hyperlipidemia, unspecified; E66.9 Obesity, unspecified; Z68.36 Body mass index [BMI] 36.0-36.9, adult; Z87.891 Personal history of nicotine dependence; Z86.718 Personal history of other venous thrombosis and embolism; Z79.82 Long term (current) use of aspirin; Z79.891 Long term (current) use of opiate analgesic
CPT/HCPCS: 51715; A9270; J0690; J2704; J3010; J7120; L8606

== ENCOUNTER 2022-06-11 01:44 | Day surgery (SDC) | payer MEDICARE, SELFPAY ==
[2022-06-03 13:57] VITALS: BMI 35.8
--- NOTE | 2022-06-03 14:07 | PC.NURSE ---
Report to the Outpatient Waiting Room, entrance under the green pavilion located off [facility], at time _1100_ on date _06/11/22_. OR Time: ____1 PM____. Time changes happen often and if your time is changed the preop area will call you the afternoon before. - You and your visitor will be asked to self-screen and do not enter if you have any COVID symptoms. - We encourage only one visitor and NO visitors under age 16 are allowed at this time. Your visitor will receive communication by the phone number that is given day of service. - The patient visitor is requested to social distance or may leave the building when not with patient due to restrictions. - A mask is required within the hospital. Patients may have clear liquids (water, carbonated beverages, clear teas, apple juice) until 3 hours prior to surgery with a maximum of 20 ounces. - No food from midnight until time of surgery - Infants may have breast milk until 4 hours before surgery, formula 6 hours prior to surgery. - Children will be allowed to drink immediately following surgery. If applicable, please bring a bottle or sippy cup to assist with drinking. Juice, water, soda, and popsicles are readily available. For infants on formula, please bring formula the day of surgery. Pacifiers are allowed. Take the following medications with a SIP of water the morning of surgery: _GABAPENTIN, LEVOTHYROXINE, METOPROLOL, ROPINIROLE, VENLAFAXINE, PAIN PILL IF NEEDED_ Medications to discontinue per physician _ASPIRIN PER DR. AZAR'S INSTRUCTIONS, MULTIVITAMIN 3 DAYS PRIOR TO SURGERY_ Date to take last dose 06/07/22 Please no make-up, nail irish, hairspray, perfume, deodorant, or body powder the day of surgery. No jewelry (including any body piercings) or valuables the day of surgery, leave them at home. Please take a shower or bath the night before, or the morning of, surgery with an antibacterial soap. Wear comfortable, loose fitting clothing. Children are encouraged to wear pajamas. - Jewelry must be removed prior to entering the operating room. Rings and piercings that are not removed may be cut off. - The hospital will not accept responsibility for valuables. - Please leave all valuables, including medications, at home the day of surgery. If you are going home after surgery, a licensed local intermodal truck driver must drive you home. - NO public transportation without another adult. - We recommend that an adult stay with you for 24 hours following discharge. - We also recommend that you do not drive, make important decision, drink alcoholic beverages, or take any drugs that were not prescribed by your health care provider for at least 24 hours after your discharge time. For Pediatric surgeries, we recommend two adults accompany the child home. Follow any additional instructions given to you from your surgeon. If you or anyone in your household have experienced Covid symptoms in the past week, please notify your surgeon or the nurse liaison at the phone number below for possible testing. Telephone instructions given to and asked if any additional questions and then verbalized understanding. Patient advised to call surgeon office or pre surgery nurse liaison [phone] if any additional questions.
[2022-06-11] MEDS: ACETAMINOPHEN 500 MG TABLET 1000 MG PO (12:09)
[2022-06-11] MEDS: LACTATED RINGERS 1,000 ML 30 ML IV CONT ×2 (12:30→16:07)
[2022-06-11 12:54] VITALS: BP 124/57; PULSE 63; RESP 16; TEMP 36.9; O2SAT 100
[2022-06-11] MEDS: KETOROLAC 15 MG/ML VIAL (*BKC) IV PUSH (13:04)
--- NOTE | 2022-06-11 14:15 | WPDANESEPPF ---
Anes - Initial Pre Proc Eval Procedure: Operation Date: 06/11/22 12:30 Proposed Procedures p Right Inguinal Hernia Repair with Mesh - Pepito Pretty MD Date/Time: 06/11/22 14:15 Surgeon: Pepito Pretty MD Pre Op Diagnosis: Rt Ing Hernia Patient Data Age: 86 Gender: F Height: 1.65 m Weight: 101.5 kg Last Vital Signs Temp 98.5 F 06/11/22 12:54 Pulse 63 06/11/22 12:54 Resp 16 06/11/22 12:54 BP 124/57 L 06/11/22 12:54 Pulse Ox 100 06/11/22 12:54 O2 Del Method Room Air 06/11/22 12:54 Allergies Allergy/AdvReac Type Severity Reaction Status Date / Time Penicillins Allergy Severe Hives Verified 06/11/22 12:00 morphine Allergy Intermediate Hallucinati Verified 06/11/22 12:00 ng Sulfa (Sulfonamide Allergy Intermediate hives Verified 06/11/22 12:00 Antibiotics) bumetanide Allergy Nausea Verified 06/11/22 12:00 Home Medications Medication Instructions Recorded Confirmed Type ascorbic acid (vitamin C) 500 mg 500 mg PO DAILY 08/06/19 06/11/22 History chewable tablet aspirin 325 mg tablet 325 mg PO DAILY 08/06/19 06/11/22 History atorvastatin 10 mg tablet 10 mg PO DAILY 08/06/19 06/11/22 History metoprolol tartrate 25 mg tablet 12.5 mg PO BID 08/06/19 06/11/22 History multivitamin,dy-bsgm-jofoktvm 1 tablet PO DAILY 08/06/19 06/11/22 History (Complete Multivitamin tablet) potassium chloride 20 mEq 20 meq PO DAILY 08/06/19 06/11/22 History tablet,extended release gabapentin 100 mg capsule 100 mg PO TID 08/13/21 06/11/22 History hydrocodone 10 mg-acetaminophen 1 tablet PO Q6H PRN Pain 08/13/21 06/03/22 History 325 mg tablet furosemide 80 mg tablet 80 mg PO DAILY 09/04/21 06/11/22 History docusate sodium 100 mg capsule 100 mg PO BID 01/06/22 06/11/22 History (Colace) venlafaxine 150 mg 150 mg PO DAILY #90 caps 01/14/22 06/11/22 Rx capsule,extended release 24 hr omeprazole 20 mg capsule,delayed See Rx Instructions .Route 02/11/22 06/11/22 Rx release .COMPLEX #30 caps levothyroxine 88 mcg tablet 88 mcg PO DAILY #90 tabs 03/18/22 06/11/22 Rx betamethasone valerate 0.1 % See Rx Instructions .Route 04/29/22 06/03/22 Rx topical cream .COMPLEX PRN allergic reaction #45 grams phenazopyridine 200 mg tablet 100 mg PO TID PRN pain 6 doses #30 05/16/22 06/03/22 Rx (Pyridium) tabs ropinirole 4 mg tablet 4 mg PO BID #60 tabs 05/28/22 06/11/22 Rx Patient hx anesthesia problems: none Family hx anesthesia problems: none Results Review: All pre-operative results and documents have been reviewed as part of the pre-operative evaluation. [facility] Past Medical History Medical History (Updated 05/29/22 @ 10:29 by Rosa Maria Singer) Afib patient had wactchman placed for a. fib approximately 2 yrs ago Choking Chronic a-fib Chronic pain disorder CKD (chronic kidney disease), stage III Essential (primary) hypertension Fatigue Fracture of knee prosthesis History of blood transfusion History of brain tumor History of DVT (deep vein thrombosis) HLD (hyperlipidemia) Hoarseness of voice HTN (hypertension) Hypertension Hypothyroidism (acquired) Hypothyroidism, unspecified Lumbar spondylosis Major depressive disorder, single episode, unspecified Minor head injury without loss of consciousness Numbness and tingling in left hand Obesity Other fracture of right femur, initial encounter for closed fracture PAD (peripheral artery disease) Unspecified injury of head, sequela Surgical History Surgical History Brain tumor (benign) excised H/O thyroidectomy History of appendectomy History of back surgery History of hip replacement History of knee replacement Hx of tonsillectomy Family History Family History Sibling Family history of multiple sclerosis, Onset Age: 43 Father Acute myocardial infarction Mother , age 60 Heart disea
--- NOTE | 2022-06-11 14:28 | WPDHPUPDATE1 ---
History and Physical Update Update Date/Time: 06/11/22 14:28 History and Physical has been reviewed, including an updated exam of the patient. There are NO changes in the patient's condition. Risks, benefits, and alternatives have been discussed and questions answered. Patient agrees to proceed with procedure.
[2022-06-11] MEDS: ceFAZolin 2 GM/D5W 50 ML 2 GM/50 ML BAG IVPB (14:32)
[2022-06-11] MEDS: BUPIVACAINE/EPINEPHRINE 0.25% 50 ML VIAL 30 ML INFILTRATE (15:40)
[2022-06-11 16:07] VITALS: BP 101/46; PULSE 48; RESP 12; O2SAT 100
[2022-06-11 16:35] VITALS: BP 135/57; PULSE 49; RESP 14; O2SAT 100
--- NOTE | 2022-06-11 16:50 | W.PM.PROC2 ---
Procedure Note - Detailed Date of Procedure 06/11/22 Pre-op Diagnosis Rt Ing Hernia Post-op Diagnosis Same Procedure Performed Right inguinal hernia repair with extra-large PerFix Light plug and patch Surgeon Pepito Pretty MD Configuration Management Specialist MARIFER Doherty Anesthesia General (G IV S) and Local (0.25% Marcaine with epinephrine) Indications Patient has a painful reducible right inguinal hernia. CT scan shows a nonobstructive loop of small bowel associated with the hernia. She is taken to surgery now for right inguinal hernia repair. Findings She had a large indirect hernia. Description of Procedure Patient was taken to surgery and IV sedation was administered. Her abdominal panniculus was retracted anteriorly so that the groin was exposed. We taped the panniculus in this position. We then prepped and draped the right groin and genitalia area. The proposed incision was marked on the skin. Local was infiltrated in the area of the anticipated incision. I should point out that there was some excoriation from the fold in the abdominal panniculus that was right in the area of our incision. No sign of fungal dermatitis or infection was there however. After infiltrating local, a right inguinal incision was made. Dissection was carried down through the subcutaneous. Crossing veins were cauterized and divided. We continued our dissection through Shahrzad's fascia and down to the external oblique aponeurosis. The aponeurosis was exposed as was the external ring. I infiltrated additional local local deep to the aponeurosis in the area of the inguinal canal. I then opened the external oblique aponeurosis laterally and extended this incision medially through the external ring. The leaves of the aponeurosis were then freed from the underlying inguinal canal contents. The hernia was large and occupied most of the inguinal canal space. I was able to mobilize the round ligament medially with a [place] drain. I then mobilized the hernia sac back to the internal ring. I then divided the round ligament near the pubic tubercle. I brought the round ligament back and elevated the hernia sac directly over the internal ring. I then carefully freed the hernia sac from the round ligament in any other tissues in the area. I twisted the hernia sac and reduce the contents. I dissected on the hernia sac to create a high dissection. I then dunked the hernia sac into the retroperitoneum. An extra-large PerFix light plug was used to plug the defect. I suture the outer edges of the plug to the transversalis fascia with interrupted 3-0 Vicryl suture. I then closed the defect with interrupted 3-0 Vicryl suture over the plug. The patch was then cut to the appropriate size and placed over the inguinal canal floor. The 1st piece of Xaracoll was laid over the patch. I then closed the external oblique aponeurosis with interrupted 3-0 Vicryl suture. The 2nd piece of Xaracoll was placed over the aponeurosis. Shahrzad's fascia was closed with interrupted 3-0 Vicryl suture. The last pieces Xaracoll was placed in the subcutaneous. The skin was loosely approximated with subcuticular interrupted 4-0 Vicryl skin suture. Finally the skin was closed with a running 4-0 Monocryl skin suture. Wound was dressed with Exofin surgical adhesive. The panniculus was placed back in its normal position. The patient was awakened and taken to outpatient surgery in good condition. Sponge and needle counts were correct x2. Implants Extra large PerFix Light plug and patch, Xaracoll Estimated Blood Loss -5.0 Drains No Packing No Pathology None sent Complications No immediate complications Condition Stable Disposition Same day [facility] Billing Surgery - Charge Forward: Surgery Billing (Right inguinal hernia repair with mesh)
[2022-06-11 17:05] VITALS: BP 117/46; PULSE 44; RESP 12
[2022-06-11 17:35] VITALS: BP 114/48; PULSE 52; RESP 14
[2022-06-11] MEDS: oxyCODONE HCL (*CRX) 5 MG TAB IR PO (17:40)
--- NOTE | 2022-06-11 18:00 | SUR.PHASEII ---
PER DR AZAR PATIENT DOES NOT HAVE TO VOID BEFORE DISCHARGE. PATIENT IS ALERT AND AWAKE, WALKED TO BATHROOM WITH MINIMAL ASSISTANCE, HOWEVER WAS UNABLE TO URINATE. PATIENT AND SON EDUCATED ON WORRISOME SIGNS/SYMPTOMS, BOTH FEEL COMFORTABLE TO DISCHARGE.
== END 2022-06-11 18:00 | disposition home or self-care (01) ==
PROVIDERS: PCP Emergency Medicine; Visit Provider Surgery
PROC: (CPT 49505; principal; 2022-06-11 12:30)
DX: K40.90 Unilateral inguinal hernia, without obstruction or gangrene, not specified as recurrent (principal); I48.20 Chronic atrial fibrillation, unspecified; E78.5 Hyperlipidemia, unspecified; F32.A Depression, unspecified; I12.9 Hypertensive chronic kidney disease with stage 1 through stage 4 chronic kidney disease, or unspecified chronic kidney disease; N18.30 Chronic kidney disease, stage 3 unspecified; E89.0 Postprocedural hypothyroidism; I73.9 Peripheral vascular disease, unspecified; Z79.82 Long term (current) use of aspirin; Z86.718 Personal history of other venous thrombosis and embolism; E66.9 Obesity, unspecified; Z68.37 Body mass index [BMI] 37.0-37.9, adult; Z87.891 Personal history of nicotine dependence
CPT/HCPCS: 49505; A9270; C1781; J0690; J1885; J2704; J3010; J7120

== ENCOUNTER → 2022-11-13 11:13 | Outpatient (CLI) | payer MEDICARE, SELFPAY ==
--- NOTE | ~2022-11-13 | MR_ITS ---
MRI of the right shoulder Technique: Axial proton-density fat-sat images, coronal proton density fat-sat and T2 fat-sat images, and sagittal T1-weighted and T2 fat-sat images were acquired. Clinical History: Injury Findings: There is [id number] AC joint degenerative change. Coracoclavicular, coracoacromial li gaments are intact. Coracohumeral ligament poorly visualized. There are complete, full-thickness tears involving the entirety of the supraspinatus and infraspinatu s tendons, which are retracted to the level of the glenohumeral joint. Fluid-filled gap measures appr oximately 4.5 x 4.5 cm in extent. Retracted tendon edges are frayed and hyperintense. There is severe subscapularis tendinosis with probable tearing of the transverse ligament distal fibers over the bic ipital groove. The proximal tendon of the long head of the biceps is completely ruptured, and retract ed into the distal bicipital groove. No definite labral tear identified. Inferior glenohumeral ligament is intact. Humeral head is high riding. Moderate glenohumeral joint ef fusion present, with fluid passing through the rotator cuff defect into the subacromial/subdeltoid bu rsa. There is probable mild to moderate fatty atrophy of the supraspinatus and infraspinatus muscle b ellies. Impression: Complete, full-thickness retracted tears involving the entirety of the supraspinatus and infraspinatu s tendons, as detailed above. Associated probable mild to moderate fatty atrophy of the supraspinatus and infraspinatus muscle bellies. Complete rupture of the proximal tendon of the long head of the biceps, which is retracted into the d istal bicipital groove. Severe subscapularis tendinosis with probable tearing of the distal transverse ligament fibers over t he bicipital groove. High riding humeral head with moderate glenohumeral joint effusion. Reviewed, dictated and finalized at location . Impression: Complete, full-thickness retracted tears involving the entirety of the supraspi natus and infraspinatus tendons, as detailed above. Associated probable mild to moderate fatty atrophy of the supraspinatus and infraspinatus muscle bellies. Complete rupture of the proximal tendon of the long head of the biceps, which i s retracted into the distal bicipital groove. Severe subscapularis tendinosis with probable tearing of the distal transverse ligament fibers over the bicipital groove. High riding humeral head with moderate glenohumeral joint effusion.
== END ==
PROVIDERS: PCP Emergency Medicine; Visit Provider Emergency Medicine
DX: S49.91XA Unspecified injury of right shoulder and upper arm, initial encounter (principal); X58.XXXA Exposure to other specified factors, initial encounter; M75.121 Complete rotator cuff tear or rupture of right shoulder, not specified as traumatic
CPT/HCPCS: 73221

== ENCOUNTER 2022-11-20 10:58 | Outpatient (CLI) | payer MEDICARE, SELFPAY ==
[2022-11-20 11:47] LABS: Alanine Aminotransferase 14 U/L (6-35); Alkaline Phosphatase 175 U/L (38-126); Anion Gap 5 mmol/L (8-16); Aspartate Amino Transferase 26 U/L (14-36); Bilirubin,Total 0.8 mg/dL (0.2-1.3); Blood Urea Nitrogen 26 mg/dL (7-17); Calcium 8.9 mg/dL (8.4-10.2); Carbon Dioxide 39 mmol/L (22-30); Chloride 96 mmol/L (98-107); Cholesterol 156 mg/dL (0-200); Estimated Glomerular Filt Rate 60; Glucose 94 mg/dL (65-110); HDL Direct 54 mg/dL; Potassium 3.6 mmol/L (3.4-5.0); Sodium 140 mmol/L (137-145); Triglycerides 74 mg/dL (<150)
[2022-11-20 11:58] LABS: LDL Cholesterol Direct 68 mg/dL
== END 2022-11-20 10:59 | disposition home or self-care (01) ==
PROVIDERS: PCP Emergency Medicine; Visit Provider Emergency Medicine
DX: E03.9 Hypothyroidism, unspecified (principal); E11.9 Type 2 diabetes mellitus without complications
CPT/HCPCS: 36415; 80053; 80061; 84443

== ENCOUNTER 2023-03-20 10:23 | Emergency (ER) | payer MEDICARE, SELFPAY ==
[2023-03-20] VITALS (22 sets, daily range): BP systolic 98–147; BP diastolic 52–114; PULSE 65–85; RESP 13–24; TEMP 36.6; O2SAT 93–99
--- NOTE | ~2023-03-20 | US_ITS ---
Duplex Sonography of the right extremity: Indication: Swelling, erythema Findings: Sagittal and transverse B-mode images as well as color-flow imaging were performed on the r ight femoral and popliteal veins. B-mode examination was done without and with compression in the tr ansverse plane. There is good visualization of the common femoral, proximal profunda femoral, superf icial femoral, greater saphenous, and popliteal veins. Normal flow was seen on color-flow imaging. N ormal compressibility was demonstrated. Visualized calf veins are also patent. Impression: No evidence of deep vein thrombosis involving the right lower extremity. Reviewed, dictated and finalized at location . Impression: No evidence of deep vein thrombosis involving the right lower extremity.
--- NOTE | ~2023-03-20 | XR_ITS ---
Clinical Indication: Pulmonary edema AP and lateral views of the chest: Comparison: 08/15/2021 Findings: There are mild central congestive changes, probable minimal central pulmonary edema.. Card iomediastinal silhouette is stable. Bones and soft tissues are unremarkable. Impression: Central congestive change and probable minimal central pulmonary edema. Reviewed, dictated and finalized at [facility]. Impression: Central congestive change and probable minimal central pulmonary edema.
--- NOTE | 2023-03-20 11:01 | ED.EXTPRO ---
HPI - Extremity Problem General Chief complaint: Extremity Problem,Nontraumatic Stated complaint: right leg edema Time Seen by Provider: 03/20/23 11:01 Source: patient and old records reviewed Mode of arrival: ambulatory Limitations: no limitations History of Present Illness HPI Narrative: Patient is an 87 y/o female who presents to the ED with c/o right lower extremity swelling and wound. Patient reports having chronic lower extremity edema. She states edema typically improves with keeping her feet elevated. She does have history of CHF and takes Lasix 80 mg daily. She also takes metolazone 5mg 3 times a week. Patient reports her swelling has been worse than usual over the last couple of days, worse in RLE. She has noticed 2 small wounds to her right lower extremity from scratching her dry skin underneath her jeans. She did not realize that she had caused a wound. Denies significant drainage from this wound. Her right lower extremity has become slightly red and warm and is tender. Patient denies any fevers. Denies chest pain or shortness of breath. She tried contacting her doctor, but was not prescribed an antibiotic, which prompted her here. Related Data Home Medications Medication Instructions Recorded Confirmed ascorbic acid (vitamin C) 500 mg 500 mg PO DAILY 08/06/19 07/14/22 chewable tablet aspirin 325 mg tablet 325 mg PO DAILY 08/06/19 07/14/22 atorvastatin 10 mg tablet 10 mg PO DAILY 08/06/19 07/14/22 multivitamin,bv-hidf-qotyrksi 1 tablet PO DAILY 08/06/19 07/14/22 (Complete Multivitamin tablet) gabapentin 100 mg capsule 100 mg PO TID 08/13/21 07/14/22 hydrocodone 10 mg-acetaminophen 1 tablet PO Q6H PRN Pain 08/13/21 07/14/22 325 mg tablet Allergies Allergy/AdvReac Type Severity Reaction Status Date / Time Penicillins Allergy Severe Hives Verified 03/20/23 10:38 morphine Allergy Intermediate Hallucinati Verified 03/20/23 10:38 ng Sulfa (Sulfonamide Allergy Intermediate hives Verified 03/20/23 10:38 Antibiotics) bumetanide Allergy Nausea Verified 03/20/23 10:38 Review of Systems Review of Systems: CONSTITUTIONAL: Denies fever, chills, or sweats. CARDIOVASCULAR: Denies chest pain. RESPIRATORY: Denies dyspnea. SKIN: See HPI. MUSCULOSKELETAL: See HPI. NEUROLOGIC: Denies headache, numbness, or weakness. All systems reviewed & are unremarkable except as noted in HPI and below PMFSH Past Medical History Medical History Afib patient had wactchman placed for a. fib approximately 2 yrs ago Choking Chronic a-fib Chronic pain disorder CKD (chronic kidney disease), stage III Essential (primary) hypertension Fatigue Fracture of knee prosthesis History of blood transfusion History of brain tumor History of DVT (deep vein thrombosis) HLD (hyperlipidemia) Hoarseness of voice HTN (hypertension) Hypertension Hypothyroidism (acquired) Hypothyroidism, unspecified Lumbar spondylosis Major depressive disorder, single episode, unspecified Minor head injury without loss of consciousness Numbness and tingling in left hand Obesity Other fracture of right femur, initial encounter for closed fracture PAD (peripheral artery disease) Unspecified injury of head, sequela Surgical History Surgical History Brain tumor (benign) excised H/O thyroidectomy History of appendectomy History of back surgery History of hip replacement History of knee replacement Hx of right inguinal hernia repair 06/11/22 Hx of tonsillectomy Family History Family History Sibling Family history of multiple sclerosis, Onset Age: 43 Father Acute myocardial infarction Mother , age 60 Heart disease Acute myocardial infarction Social History Social History
[2023-03-20 12:08] LABS: Basophils Percent Auto 0.2 % (0.2-1.2); Eosinophils Percent Auto 0.7 % (0-4.4); Hematocrit 36.4 % (37.0-47.0); Hemoglobin 11.1 g/dL (12.0-15.0); Immature Granulocyte Absolute 0.02 K/mm3 (0.00-0.031); Immature Granulocyte Percent A 0.4 % (0-0.5); Lymphocytes Absolute Auto 0.38 K/mm3 (0.9-3.2); Lymphocytes Percent Auto 8.4 % (18.3-44.2); Mean Corpuscular HGB Conc 30.5 g/dl (32-36); Mean Corpuscular Hemoglobin 29.4 pg (26-34); Mean Corpuscular Volume 96.6 fl (80-100); Mean Platelet Volume 10.2 fl (7.4-10.4); Monocytes Absolute Auto 0.5 K/mm3 (0.1-0.6); Monocytes Percent Auto 11.1 % (2.6-8.5); Neutrophils Absolute Auto 3.6 K/mm3 (1.3-6.7); Neutrophils Percent Auto 79.2 % (45.5-73.1); Platelet Count Result 151 k/mm3 (150-375); Red Blood Count 3.77 M/mm3 (4.2-5.4); Red Cell Distribution Width 17.2 % (11.5-14.5); White Blood Count 4.5 K/mm3 (4.5-10.0)
[2023-03-20 12:14] LABS: Alanine Aminotransferase 18 U/L (6-35); Albumin Level 3.9 g/dL (3.5-5.1); Alkaline Phosphatase 133 U/L (38-126); Anion Gap 4 mmol/L (8-16); Aspartate Amino Transferase 26 U/L (14-36); Bilirubin,Total 1.2 mg/dL (0.2-1.3); Blood Urea Nitrogen 24 mg/dL (7-17); Calcium 8.7 mg/dL (8.4-10.2); Carbon Dioxide 35 mmol/L (22-30); Chloride 98 mmol/L (98-107); Estimated CRCL calculation 50 ml/min; Estimated Glomerular Filt Rate > 60; Glucose 119 mg/dL (65-110); Potassium 3.7 mmol/L (3.4-5.0); Sodium 137 mmol/L (137-145)
[2023-03-20 12:24] LABS: NT Pro B Type Natriuretic Pept 1630 pg/mL (19.9-100)
[2023-03-20] MEDS: FUROSEMIDE INJ 40 MG/4 ML VIAL IV PUSH (14:46)
== END 2023-03-20 15:10 | disposition home or self-care (01) ==
PROVIDERS: Emergency Provider Physician Assistant; PCP Emergency Medicine
DX: R60.0 Localized edema (principal); L03.115 Cellulitis of right lower limb; I50.9 Heart failure, unspecified; I13.0 Hypertensive heart and chronic kidney disease with heart failure and stage 1 through stage 4 chronic kidney disease, or unspecified chronic kidney disease; N18.30 Chronic kidney disease, stage 3 unspecified; I48.20 Chronic atrial fibrillation, unspecified; I73.9 Peripheral vascular disease, unspecified; E89.0 Postprocedural hypothyroidism; E78.5 Hyperlipidemia, unspecified; E66.9 Obesity, unspecified; Z68.33 Body mass index [BMI] 33.0-33.9, adult; Z96.649 Presence of unspecified artificial hip joint; Z96.659 Presence of unspecified artificial knee joint; Z86.718 Personal history of other venous thrombosis and embolism; Z87.891 Personal history of nicotine dependence
CPT/HCPCS: 36415; 71046; 80053; 83880; 85025; 93971; 96374; 99284; J1940

== ENCOUNTER 2023-04-01 13:00 | Observation (INO) | payer MEDICARE, SELFPAY ==
[2023-04-01] VITALS (33 sets, daily range): BP systolic 115–154; BP diastolic 50–82; PULSE 48–75; RESP 11–24; TEMP 36.6–36.7; O2SAT 90–100; BMI 31.8
--- NOTE | ~2023-04-01 | CT_ITS ---
EXAMINATION: CT brain wo con DATE: 04/01/2023 17:37 INDICATION: fall . TECHNIQUE: Computed tomography (CT) of the head was performed without intravenous contrast. The mA wa s adjusted according to patient size. Iterative reconstruction technique was employed. The dose-lengt h product was 605.33 mGy-cm. COMPARISON: 08/15/2021. FINDINGS: No acute intracranial hemorrhage or extra-axial fluid collection. No hydrocephalus, mass, or herniation. No acute ischemic infarct. Unremarkable dural venous sinus attenuation. No acute osseous abnormality. Right craniotomy defect with stable underlying dural calcification and thickening. Left mastoid effusion, the remaining aerated spaces are clear. Moderate atrophy and chronic white matter change. Atherosclerotic intracranial calcification. Bilater al lens replacements. Encephalomalacia/post surgical change in the right parietal lobe. IMPRESSION: No acute intracranial process. Reviewed, dictated and finalized at location K.
--- NOTE | ~2023-04-01 | CT_ITS ---
EXAMINATION: CT chst ab gwendolyn conteh wo DATE: 04/01/2023 17:38 INDICATION: fall, severe anterior chest and upper abdominal pa . TECHNIQUE: Computed tomography (CT) of the chest, abdomen, pelvis, thoracic spine and lumbar spine wa s performed without intravenous contrast. Automated exposure control and iterative reconstruction vj hnique were employed. The dose-length product was 1165.91 mGy-cm. COMPARISON: CT abdomen pelvis 04/30/2022 FINDINGS: CHEST: No thoracic aortic injury. Moderate arch calcification and ectasia. No mediastinal hematoma. Dilated central pulmonary arteries as can be seen with pulmonary arterial hy pertension. Large hiatal hernia. No pericardial effusion. Cardiomegaly. Coronary artery calcification. No acute lung injury. Bibasilar scar/atelectasis and senescent changes. No pleural effusion or pneumothorax. ABDOMEN/PELVIS: No solid organ injury. No evidence of bowel or mesenteric injury. Gallbladder hydrops. Cholelithiasis. Diverticulosis, witho ut evidence of diverticulitis. No free fluid or free air. No retroperitoneal hematoma. IVC filter. Pelvic contents are atraumatic, although they are partially obscured by metal artifact. MUSCULOSKELETAL: Nondisplaced right posterior 11th rib fracture. Multiple old healed rib fractures. Partially visualiz ed, uncomplicated appearing right hip arthroplasty. T-spine: Obliquely oriented fracture through the anterior portion of the T9 vertebral body. Vertebroplasty caleb nges at T12. Multilevel moderate degenerative disc disease in the thoracic spine. Bilateral neural fo raminal narrowing at T12-L1. L-spine: Nondisplaced right L2 transverse process fracture. Stable multilevel listheses. Multilevel severe deg enerative disc disease. Multilevel facet arthropathy. Severe bilateral neural foraminal narrowing at L1-2. No severe central canal stenosis. Vertebroplasty changes at L1. IMPRESSION: Nondisplaced right posterior 11th rib fracture. Oblique fracture through the anterior portion of T9, consistent with a hyperextension type distractio n fracture. Nondisplaced right L2 transverse process fracture. Otherwise, no acute process detected in the chest, abdomen, or pelvis. Gallbladder hydrops with cholelithiasis. If there are symptoms or laboratory abnormalities compatible cholecystitis, consider right upper quadrant ultrasound. Reviewed, dictated and finalized at location K. IMPRESSION: Nondisplaced right posterior 11th rib fracture. Oblique fracture through the anterior portion of T9, consistent with a hyperext ension type distraction fracture. Nondisplaced right L2 transverse process fracture. Otherwise, no acute process detected in the chest, abdomen, or pelvis. Gallbladder hydrops with cholelithiasis. If there are symptoms or laboratory ab normalities compatible cholecystitis, consider right upper quadrant ultrasound.
--- NOTE | ~2023-04-01 | XR_ITS ---
EXAMINATION: XR thoracolumbar DATE: 04/03/2023 13:20 INDICATION: Back pain. TECHNIQUE: 3 views of thoracolumbar spine were obtained. COMPARISON: Thoracic spine radiograph 01/24/2022, CT 04/01/2023 FINDINGS: There is 4 degrees levocurvature of thoracolumbar spine. There is 3 mm anterolisthesis of L 4 on L5. There are bridging endplate osteophytes at multiple levels in the thoracic spine, consistent with diffuse idiopathic skeletal hyperostosis (DISH). There is a chronic compression fracture of T11 . There are chronic burst fractures of T12 and L1 with changes of vertebroplasty. There is severely d ecreased disc height at T11-T12, T12-L1, L1-L2, and L4-L5. There is a filter in the inferior vena cav a. IMPRESSION: 1. Severe lumbar spondylosis. 2. DISH. Reviewed, dictated and finalized at location A.
--- NOTE | ~2023-04-01 | CT_ITS ---
EXAMINATION: CT cervical spine wo con DATE: 04/01/2023 17:38 INDICATION: fall TECHNIQUE: Computed tomography (CT) of the cervical spine was performed without intravenous contrast. Automated exposure control and iterative reconstruction technique were employed. The dose-length pro duct was 308.55 mGy-cm. COMPARISON: None. FINDINGS: Vertebral Body Alignment: Intact. 2 mm retrolisthesis at C3-4 presumably on a degenerative basis Craniocervical and atlantoaxial alignment: Mild degenerative change. Alignment intact. Osseous structures/fracture: No evidence of a lytic or blastic process in the visualized spine. No e vidence of acute fracture. Cervical soft tissues: The paraspinal soft tissues planes are maintained. Degenerative changes: Multilevel moderate degenerative disc disease. Severe left neural foraminal neal rowing at C5-6. No severe central canal narrowing. Multilevel mild facet arthropathy. IMPRESSION: No acute fracture or traumatic malalignment in the cervical spine. Reviewed, dictated and finalized at location K.
[2023-04-01 13:09] LABS: Glucose Point of Care 65 mg/dl (65-105)
[2023-04-01 14:37] LABS: Glucose Point of Care 86 mg/dl (65-105)
--- NOTE | 2023-04-01 16:31 | ECG_ITS ---
Measurements Intervals [place] Rate: 50 P: [place]: 0 QRS: 27 QRSD: 122 T: 29 QT: 466 QTc: 425 Interpretive Statements PROBABLE ATRIAL FIBRILLATION NONSPECIFIC T-WAVE ABNORMALITY ABNORMAL ECG NO PREVIOUS ECG AVAILABLE FOR COMPARISON Electronically Signed On 04-02-2023 9:15:11 CDT by Jeovany Skinner M.D.
--- NOTE | 2023-04-01 16:33 | ED.FALL ---
HPI - Fall General Chief Complaint: Fall Stated Complaint: fall Time Seen by Provider: 04/01/23 15:46 History of Present Illness HPI Narrative: Patient is an 87-year-old female presenting after a fall. Patient states that she was trying to make her bed when she lost her balance and fell backwards. She struck her lower back against picture frames and then struck her head on a windowsill. Patient was able to ambulate afterwards but she was having severe lower back pain as well as severe chest pain. States that it really hurts to take a big breath. She is concerned she broke her rib. No numbness or weakness. No shortness of breath and she denies any chest pain prior to falling. Patient's son is concerned that she may have a persistent UTI. Denies abdominal pain or nausea. Denies extremity injuries. Related Data Home Medications Medication Instructions Recorded Confirmed ascorbic acid (vitamin C) 500 mg 500 mg PO DAILY 08/06/19 04/01/23 chewable tablet aspirin 325 mg tablet 325 mg PO DAILY 08/06/19 04/01/23 atorvastatin 10 mg tablet 10 mg PO HS 08/06/19 04/01/23 multivitamin,as-hjgv-cohkpukg 1 tablet PO DAILY 08/06/19 04/01/23 (Complete Multivitamin tablet) gabapentin 100 mg capsule 100 mg PO TID 08/13/21 04/01/23 hydrocodone 10 mg-acetaminophen 1 tablet PO Q6H PRN Pain 08/13/21 04/01/23 325 mg tablet furosemide 40 mg tablet 40 mg PO QAM 04/01/23 04/01/23 levothyroxine 88 mcg tablet 88 mcg PO DAILY 04/01/23 04/01/23 metolazone 5 mg tablet 10 mg PO DAILY 04/01/23 04/01/23 omeprazole 20 mg capsule,delayed 20 mg PO DAILY 04/01/23 04/01/23 release phenazopyridine 200 mg tablet 100 mg PO TID PRN Pain 04/01/23 04/01/23 potassium chloride 20 mEq 20 meq PO DAILY 04/01/23 04/01/23 tablet,extended release(part/cryst) ropinirole 4 mg tablet 4 mg PO BID 04/01/23 04/01/23 venlafaxine 150 mg 150 mg PO DAILY 04/01/23 04/01/23 capsule,extended release 24 hr Allergies Allergy/AdvReac Type Severity Reaction Status Date / Time Penicillins Allergy Severe Hives Verified 04/01/23 22:24 Sulfa (Sulfonamide Allergy Intermediate hives Verified 04/01/23 22:24 Antibiotics) morphine AdvReac Intermediate Hallucinati Verified 04/01/23 22:24 ng bumetanide AdvReac Nausea Verified 04/01/23 22:24 Review of Systems Review of Systems: All systems reviewed & are unremarkable except as noted in HPI and below PMFSH Past Medical History Medical History Afib patient had wactchman placed for a. fib approximately 2 yrs ago Choking Chronic a-fib Chronic pain disorder CKD (chronic kidney disease), stage III Essential (primary) hypertension Fatigue Fracture of knee prosthesis History of blood transfusion History of brain tumor History of DVT (deep vein thrombosis) HLD (hyperlipidemia) Hoarseness of voice HTN (hypertension) Hypertension Hypothyroidism (acquired) Hypothyroidism, unspecified Lumbar spondylosis Major depressive disorder, single episode, unspecified Minor head injury without loss of consciousness Numbness and tingling in left hand Obesity Other fracture of right femur, initial encounter for closed fracture PAD (peripheral artery disease) Unspecified injury of head, sequela Surgical History Surgical History Brain tumor (benign) excised H/O thyroidectomy History of appendectomy History of back surgery History of hip replacement History of knee replacement Hx of right inguinal hernia repair 06/11/22 Hx of tonsillectomy Family History Family History Sibling Family history of multiple sclerosis, Onset Age: 43 Father Acute myocardial infarction Mother , age 60 Heart disease Acute myocardial infarction Social History Social History Smoking packs per day: 0
[2023-04-01] MEDS: HYDROmorphone HCL INJ (*CRX) 1 MG/ML SYR 0.5 MG IV PUSH (17:01)
[2023-04-01 17:09] LABS: Basophils Percent Auto 0.5 % (0.2-1.2); Eosinophils Absolute Auto 0.1 K/mm3 (0-0.3); Eosinophils Percent Auto 1.7 % (0-4.4); Hematocrit 36.5 % (37.0-47.0); Hemoglobin 11.6 g/dL (12.0-15.0); Immature Granulocyte Absolute 0.01 K/mm3 (0.00-0.031); Immature Granulocyte Percent A 0.2 % (0-0.5); Lymphocytes Absolute Auto 0.63 K/mm3 (0.9-3.2); Lymphocytes Percent Auto 15.3 % (18.3-44.2); Mean Corpuscular HGB Conc 31.8 g/dl (32-36); Mean Corpuscular Hemoglobin 30.7 pg (26-34); Mean Corpuscular Volume 96.6 fl (80-100); Mean Platelet Volume 10.2 fl (7.4-10.4); Monocytes Absolute Auto 0.4 K/mm3 (0.1-0.6); Monocytes Percent Auto 10.7 % (2.6-8.5); Neutrophils Percent Auto 71.6 % (45.5-73.1); Platelet Count Result 160 k/mm3 (150-375); Red Blood Count 3.78 M/mm3 (4.2-5.4); Red Cell Distribution Width 15.8 % (11.5-14.5); White Blood Count 4.1 K/mm3 (4.5-10.0)
[2023-04-01 17:22] LABS: Alanine Aminotransferase 18 U/L (6-35); Alkaline Phosphatase 128 U/L (38-126); Anion Gap 4 mmol/L (8-16); Aspartate Amino Transferase 32 U/L (14-36); Bilirubin,Total 1.5 mg/dL (0.2-1.3); Blood Urea Nitrogen 25 mg/dL (7-17); Carbon Dioxide 38 mmol/L (22-30); Chloride 94 mmol/L (98-107); Estimated Glomerular Filt Rate > 60; Glucose 97 mg/dL (65-110); Potassium 3.4 mmol/L (3.4-5.0); Sodium 136 mmol/L (137-145)
[2023-04-01 17:33] LABS: Troponin I < 0.012 ng/mL (0.000-0.034)
[2023-04-01] MEDS: HYDROmorphone HCL INJ (*CRX) 1 MG/ML SYR IV PUSH (19:08)
[2023-04-01 19:22] LABS: Appearance Urine Turbid (Clear); Bacteria Urine 4+ /hpf; Bilirubin Urine Negative (Negative); Blood Urine 2+ (Negative); Color Urine Yellow (Yellow); Glucose Urine UA Negative (Negative); Hyaline Casts Urine Present /lpf; Ketones Urine Negative (Negative); Leukocyte Esterase Ur 3+ LEU/UL (Negative); Nitrate Urine Negative (Negative); Non Pathogenic Casts >20; Protein Urine 2+ mg/dL (Negative); Specific Grav Ur 1.014 (1.001-1.035); Squamous Epithelial Cell Urine Few /hpf (Few); WBC Urine >100 /hpf; pH Urine 7.5 (5.0-9.0)
[2023-04-01 19:24] LABS: Add Urine Microscopic? YES
[2023-04-01] MEDS: LACTATED RINGERS 500 ML 999 ML IV CONT (20:08)
--- NOTE | 2023-04-01 20:13 | PM.IMHP ---
H&P: HPI History of Present Illness Date/Time: 04/01/23 20:13 Chief Complaint: fall Narrative: This is an 87-year-old female with past medical history significant for atrial fibrillation, chronic kidney disease, chronic atrial fibrillation, chronic pain disorder, hypertension, fatigue, hypothyroidism, peripheral arterial disease. Patient presents to the emergency room after she had a fall no loss of consciousness ground level fall mechanical fall. In emergency room patient was found to have a rib fracture and urinalysis was significant for numerous WBCs present. patient has been admitted for further evaluation ,management and treatment. EXAMINATION: CT brain wo con DATE: 04/01/2023 17:37 INDICATION: fall . TECHNIQUE: Computed tomography (CT) of the head was performed without intravenous contrast. The mA was adjusted according to patient size. Iterative reconstruction technique was employed. The dose-length product was 605.33 mGy-cm. COMPARISON: 08/15/2021. FINDINGS: No acute intracranial hemorrhage or extra-axial fluid collection. No hydrocephalus, mass, or herniation. No acute ischemic infarct. Unremarkable dural venous sinus attenuation. No acute osseous abnormality. Right craniotomy defect with stable underlying dural calcification and thickening. Left mastoid effusion, the remaining aerated spaces are clear. Moderate atrophy and chronic white matter change. Atherosclerotic intracranial calcification. Bilateral lens replacements. Encephalomalacia/post surgical change in the right parietal lobe. IMPRESSION:? No acute intracranial process. Review of Systems Review of Systems: fall, generalized weakness Constitutional: Constitutional: Reports chills, Reports fatigue, Reports malaise, Reports poor appetite and Reports weakness Eyes: Eyes: Denies change in vision ENT: Denies dysphagia and Denies odynophagia Cardiovascular: Cardiovascular: Denies chest pain, Denies radiating jaw, neck or arm pain and Denies palpitations Respiratory: Respiratory: Denies chest congestion, Denies excessive phlegm production and Denies dyspnea Gastrointestinal: Gastrointestinal: Denies abdominal pain, Denies dyspepsia, Denies heartburn, Denies diarrhea, Denies nausea and Denies vomiting Genitourinary: Genitourinary: Denies dysuria Musculoskeletal: Musculoskeletal: Reports muscle weakness Integumentary/Breasts: Skin/Breast: Reports swelling and Reports skin ulcer Comments: LLE wound Neurologic: Denies focal weakness and Denies Sensory deficit (Neuro) Psychiatric: Psychiatric: Reports no additional psychiatric complaints and Reports as per HPI Endocrine: Endocrine: Denies cold intolerance, Denies fatigue, Denies flushing, Denies heat intolerance, Denies polyphagia, Denies polydipsia and Denies palpitations Hematologic/Lymphatic: Hematologic/Lymphatic: Reports no additional hematologic/lymphatic complaints and Reports as per HPI Allergic/Immunologic: Allergic/Immunologic: Reports no additional allergic/immunologic complaints and Reports as per HPI PMFSH Past Medical History Medical History Afib patient had wactchman placed for a. fib approximately 2 yrs ago Choking Chronic a-fib Chronic pain disorder CKD (chronic kidney disease), stage III Essential (primary) hypertension Fatigue Fracture of knee prosthesis History of blood transfusion History of brain tumor History of DVT (deep vein thrombosis) HLD (hyperlipidemia) Hoarseness of voice HTN (hypertension) Hypertension Hypothyroidism (acquired) Hypothyroidism, unspecified Lumbar spondylosis Major depressive disorder, single episode, unspecified Minor head injury without loss of consciousness Numbness and tingling in left hand Obesity Other fracture of right femur, initial encounter for closed fracture PAD (peripheral artery disease) Unspecified injury of head, sequela Surgical History
--- NOTE | 2023-04-01 21:52 | ADMGEN ---
This patient, Zohreh Oakes, was admitted to 3 Med Surg Room 304-02. Patient/family oriented to hospital policies and general routines including ID bracelet, bed and alarms, visiting hours, pain management, procedures, bathroom and other care routines, personal items, smoking policy, room service/diet, and visiting hours. Information on how to activate the Rapid Response Team has been discussed. Patient/Family are encouraged to report perceived risks to care and to ask questions if they do not understand what they are told or what they should do.
--- NOTE | 2023-04-01 22:56 | PC.NURSE ---
Surgical wound care clinic:[place] [phone]
[2023-04-02] VITALS (7 sets, daily range): BP systolic 127–144; BP diastolic 61–76; PULSE 77–81; RESP 16–19; TEMP 36.8–36.9; O2SAT 91–97
[2023-04-02] MEDS: HYDROcodone/acetaminophen (*CRX) 10-325 MG TABLET 1 TAB PO ×2 (02:44→12:47)
[2023-04-02] MEDS: LEVOTHYROXINE SODIUM 88 MCG TABLET PO (05:43)
[2023-04-02] MEDS: VENLAFAXINE HCL XR 75 MG CAP.ER.24H 150 MG PO (09:18)
[2023-04-02] MEDS: ASPIRIN 325 MG TABLET PO (09:19)
[2023-04-02] MEDS: GABAPENTIN 100 MG CAPSULE PO ×3 (09:19→18:19)
[2023-04-02] MEDS: rOPINIRole HCL 1 MG TABLET 4 MG PO ×2 (09:19→18:19)
[2023-04-02] MEDS: PANTOPRAZOLE 40 MG TABLET PO (09:19)
[2023-04-02] MEDS: PHENAZOPYRIDINE HCL 100 MG TABLET PO (09:20)
[2023-04-02] MEDS: metOLazone 5 MG TABLET 10 MG PO (09:20)
[2023-04-02] MEDS: SILVERGEL (ELTA) 45 ML 1 APPLIC TOPICAL (12:48)
--- NOTE | 2023-04-02 12:56 | WPDNEUROSGCN ---
Assessment and Plan Assessment and plan (1) Closed fracture of T9 vertebra: Code(s): S22.079A - Unspecified fracture of T9-T10 vertebra, initial encounter for closed fracture Status: Acute Plan Ms. Oakes is an 87-year-old female with history of CHF, neuropathy, and multiple falls in the past with L1 and T12 kyphoplasties who was admitted from the ER last night after a fall. She sustained a rib fracture as well as a T9 fracture. She has some back and chest pain without radicular pain or paresthesias into the legs. She does not have any focal neurologic deficit on physical exam. CT scan shows a fracture through the anterior portion of the vertebral body at T9 without evidence of widening of the disc space, kyphosis, retropulsion. There is also a right-sided transverse process fracture at L2 which is inconsequential. I believe this is a fracture that can be treated with a brace. I have called the rep from [place] to have her fitted with a TLSO brace. She does not need to wear this when in bed unless it is more comfortable for her to do so. She should wear it when sitting or when up out of bed. Once the brace is fitted, I would recommend obtaining AP and lateral thoracolumbar x-rays to ensure stability of the fracture. I will arrange for follow-up in clinic in about 6 weeks with x-rays immediately prior to that visit. Per the patient's request, I also discussed this plan with her son Yusef by phone. Consult date: 04/02/23 Reason for consult: T9 fracture HPI: Zohreh Oakes is a 87 year old female with history of CHF, hyperlipidemia, and neuropathy who presented to the ER last night after a fall. She has been having some issues recently with dizziness which she attributes to a recent UTI. Yesterday when she was making her bed, she lost her balance and fell onto her bottom, hitting her head on the windowsill. She immediately felt some back and chest pain. Her family brought her into the emergency room were she was found to have a rib fracture as well as the T9 fracture. She denies any radicular pain or new paresthesias into the legs. She does have neuropathy at baseline, and this is unchanged since her fall. She reports multiple falls in the past from which she has sustained previous thoracic fractures and has had 2 kyphoplasties. She has had consistent issues of back pain over the last year at particular following another fall. Review of Systems Review of Systems: All systems reviewed & are unremarkable except as noted in HPI and below PMFSH Past Medical History Medical History Afib patient had wactchman placed for a. fib approximately 2 yrs ago Choking Chronic a-fib Chronic pain disorder CKD (chronic kidney disease), stage III Essential (primary) hypertension Fatigue Fracture of knee prosthesis History of blood transfusion History of brain tumor History of DVT (deep vein thrombosis) HLD (hyperlipidemia) Hoarseness of voice HTN (hypertension) Hypertension Hypothyroidism (acquired) Hypothyroidism, unspecified Lumbar spondylosis Major depressive disorder, single episode, unspecified Minor head injury without loss of consciousness Numbness and tingling in left hand Obesity Other fracture of right femur, initial encounter for closed fracture PAD (peripheral artery disease) Unspecified injury of head, sequela Surgical History Surgical History Brain tumor (benign) excised H/O thyroidectomy History of appendectomy History of back surgery History of hip replacement History of knee replacement Hx of right inguinal hernia repair 06/11/22 Hx of tonsillectomy Family History Family History Sibling Family history of multiple sclerosis, Onset Age: 43 Father Acute myocardial infarction Mother , age 60 Heart disease Acute katia
--- NOTE | 2023-04-02 15:09 | PCOTNOTE ---
Pt. awaiting TLSO brace prior to participation with therapy services.
--- NOTE | 2023-04-02 15:49 | PM.IMPN ---
Progress Note: A&P Assessment and Plan (1) Closed rib fracture: Code(s): S22.39XA - Fracture of one rib, unspecified side, initial encounter for closed fracture Status: Acute (2) Closed fracture of T9 vertebra: Code(s): S22.079A - Unspecified fracture of T9-T10 vertebra, initial encounter for closed fracture Status: Acute (3) Fracture of transverse process of lumbar vertebra: Code(s): S32.009A - Unspecified fracture of unspecified lumbar vertebra, initial encounter for closed fracture Status: Acute (4) CKD (chronic kidney disease), stage III: Code(s): N18.30 - Chronic kidney disease, stage 3 unspecified Status: Acute (5) UTI (urinary tract infection): Code(s): N39.0 - Urinary tract infection, site not specified Status: Acute (6) Chronic a-fib: Code(s): I48.20 - Chronic atrial fibrillation, unspecified Status: Acute (7) Essential (primary) hypertension: Code(s): I10 - Essential (primary) hypertension Status: Acute (8) Leg ulcer, left: Code(s): L97.929 - Non-pressure chronic ulcer of unspecified part of left lower leg with unspecified severity Status: Acute Plan 87-year-old female presents after a fall. Systemic of bed when she lost her balance and fell backwards. Say struck her head and struck her lower back. She was able to ambulate afterwards but had severe back pain and also had chest pain. She presented to the ER on 04/01/2023. Blood work stable. CT chest abdomen pelvis revealed nondisplaced posterior 11th rib fracture as well as anterior fracture through T9 and fracture of L2 transverse process. Neurosurgery has been consulted for vertebral fracture. TLSO brace has been advised and fitting in process. Pain controlled with hydrocodone p.r.n.. Brief fracture with incentive spirometry and pain control. Urinalysis positive for UTI. Receive ceftriaxone follow urine culture and will continue ceftriaxone head CT is negative cervical spine CT with no fracture or traumatic malalignment. CT abdomen showed gallbladder hydrops with cholelithiasis without any pain.. Underlying chronic AFib/not on anticoagulation/chronic pain syndrome/hypertension/hyperlipidemia/history of DVT/hypothyroidism/lumbar spondylosis/anxiety depression/peripheral artery disease. Subjective Date/time seen: 04/02/23 15:49 Interval history: 87-year-old female presents after a fall. Systemic of bed when she lost her balance and fell backwards. Say struck her head and struck her lower back. She was able to ambulate afterwards but had severe back pain and also had chest pain. She presented to the ER on 04/01/2023. Blood work stable. CT chest abdomen pelvis revealed nondisplaced posterior 11th rib fracture as well as anterior fracture through T9 and fracture of L2 transverse process. Neurosurgery has been consulted for vertebral fracture. TLSO brace has been advised and fitting in process. Pain controlled with hydrocodone p.r.n.. Brief fracture with incentive spirometry and pain control. Urinalysis positive for UTI. Head CT is negative cervical spine CT with no fracture or traumatic malalignment. CT abdomen showed gallbladder hydrops with cholelithiasis without any pain. Review of Systems Review of Systems: All systems reviewed & are unremarkable except as noted in HPI and below Exam Narrative: GENERAL: Well-appearing, in no acute distress, pleasant and cooperative HEAD: Normocephalic, atraumatic. EYES: PERRLA and EOMI. ENT: Nares clear, no rhinorrhea or epistaxis.? Mucous membranes moist. NECK: Supple.? No midline tenderness BACK: + Lumbar tenderness CHEST: Clear to auscultation.? No respiratory distress. + anterior chest wall tenderness HEART: Regular rate and rhythm.? Normal peripheral pulses. ABDOMEN: Soft, nontender, nondistended EXTREMITIES: Normal range of motion.? No edema. SKIN: Warm, dry, no rash. NEURO: No focal deficits.? Alert and oriente
--- NOTE | 2023-04-02 17:47 | PC.NURSE ---
Pt reports having back pain due to injury. Pt has been resting in bed. Pt was fitted for back brace today and tolerate fitting well. Pt expresses no needs at this time. Will continue to monitor pt.
[2023-04-02] MEDS: ATORVASTATIN 10 MG TABLET PO (20:59)
[2023-04-03 00:15] VITALS: PULSE 78; RESP 13; O2SAT 93
[2023-04-03] MEDS: HYDROcodone/acetaminophen (*CRX) 10-325 MG TABLET 1 TAB PO ×3 (02:28→17:29)
[2023-04-03] MEDS: LEVOTHYROXINE SODIUM 88 MCG TABLET PO (05:50)
[2023-04-03 06:00] VITALS: BP 124/54; PULSE 72; RESP 18; TEMP 36.4; O2SAT 99
[2023-04-03 06:27] LABS: Basophils Percent Auto 0.3 % (0.2-1.2); Eosinophils Absolute Auto 0.1 K/mm3 (0-0.3); Eosinophils Percent Auto 2.3 % (0-4.4); Hemoglobin 10.4 g/dL (12.0-15.0); Immature Granulocyte Absolute 0.01 K/mm3 (0.00-0.031); Immature Granulocyte Percent A 0.3 % (0-0.5); Immature Platelet Fraction Pct 4.3 % (0.9-11.2); Lymphocytes Absolute Auto 0.52 K/mm3 (0.9-3.2); Lymphocytes Percent Auto 17.1 % (18.3-44.2); Mean Corpuscular HGB Conc 31.5 g/dl (32-36); Mean Corpuscular Hemoglobin 30.9 pg (26-34); Mean Corpuscular Volume 97.9 fl (80-100); Mean Platelet Volume 10.2 fl (7.4-10.4); Monocytes Absolute Auto 0.4 K/mm3 (0.1-0.6); Monocytes Percent Auto 13.2 % (2.6-8.5); Neutrophils Percent Auto 66.8 % (45.5-73.1); Platelet Count Result 140 k/mm3 (150-375); Red Blood Count 3.37 M/mm3 (4.2-5.4); Red Cell Distribution Width 15.8 % (11.5-14.5)
[2023-04-03 06:39] LABS: Potassium 3.1 mmol/L (3.4-5.0)
[2023-04-03 06:46] LABS: Alanine Aminotransferase 15 U/L (6-35); Albumin Level 3.2 g/dL (3.5-5.1); Alkaline Phosphatase 103 U/L (38-126); Aspartate Amino Transferase 25 U/L (14-36)
[2023-04-03 06:47] LABS: Anion Gap -1 mmol/L (8-16); Bilirubin,Total 0.7 mg/dL (0.2-1.3); Blood Urea Nitrogen 20 mg/dL (7-17); Calcium 8.3 mg/dL (8.4-10.2); Carbon Dioxide 39 mmol/L (22-30); Chloride 94 mmol/L (98-107); Estimated CRCL calculation 55 ml/min; Estimated Glomerular Filt Rate > 60; Glucose 96 mg/dL (65-110); Magnesium 1.8 mg/dL (1.6-2.3); Sodium 132 mmol/L (137-145)
[2023-04-03] MEDS: SILVERGEL (ELTA) 45 ML 1 APPLIC TOPICAL (08:05)
[2023-04-03] MEDS: rOPINIRole HCL 1 MG TABLET 4 MG PO ×2 (08:05→17:29)
[2023-04-03] MEDS: metOLazone 5 MG TABLET PO (08:06)
[2023-04-03] MEDS: GABAPENTIN 100 MG CAPSULE PO ×3 (08:06→17:29)
[2023-04-03] MEDS: ASPIRIN 325 MG TABLET PO (08:06)
[2023-04-03] MEDS: PANTOPRAZOLE 40 MG TABLET PO (08:06)
[2023-04-03] MEDS: VENLAFAXINE HCL XR 75 MG CAP.ER.24H 150 MG PO (08:06)
[2023-04-03 08:15] VITALS: O2SAT 98
[2023-04-03 08:35] VITALS: O2SAT 93
[2023-04-03] MEDS: PHENAZOPYRIDINE HCL 100 MG TABLET PO (11:44)
[2023-04-03] MEDS: POTASSIUM CHLORIDE 20 MEQ ER TABLET 40 MEQ PO (11:45)
--- NOTE | 2023-04-03 12:06 | PM.IMPN ---
Progress Note: A&P Assessment and Plan (1) Closed rib fracture: Code(s): S22.39XA - Fracture of one rib, unspecified side, initial encounter for closed fracture Status: Acute (2) Closed fracture of T9 vertebra: Code(s): S22.079A - Unspecified fracture of T9-T10 vertebra, initial encounter for closed fracture Status: Acute (3) Fracture of transverse process of lumbar vertebra: Code(s): S32.009A - Unspecified fracture of unspecified lumbar vertebra, initial encounter for closed fracture Status: Acute (4) CKD (chronic kidney disease), stage III: Code(s): N18.30 - Chronic kidney disease, stage 3 unspecified Status: Acute (5) UTI (urinary tract infection): Code(s): N39.0 - Urinary tract infection, site not specified Status: Acute (6) Chronic a-fib: Code(s): I48.20 - Chronic atrial fibrillation, unspecified Status: Acute (7) Essential (primary) hypertension: Code(s): I10 - Essential (primary) hypertension Status: Acute (8) Leg ulcer, left: Code(s): L97.929 - Non-pressure chronic ulcer of unspecified part of left lower leg with unspecified severity Status: Acute Plan 87-year-old female presents after a fall. Systemic of bed when she lost her balance and fell backwards. Say struck her head and struck her lower back. She was able to ambulate afterwards but had severe back pain and also had chest pain. She presented to the ER on 04/01/2023. Blood work stable. CT chest abdomen pelvis revealed nondisplaced posterior 11th rib fracture as well as anterior fracture through T9 and fracture of L2 transverse process. Neurosurgery has been consulted for vertebral fracture. TLSO brace has been advised and got fitted with it 04/02/2023. Pain controlled with hydrocodone p.r.n.. Brief fracture with incentive spirometry and pain control. Urinalysis positive for UTI. Receive ceftriaxone follow urine culture and will continue ceftriaxone head CT is negative cervical spine CT with no fracture or traumatic malalignment. CT abdomen showed gallbladder hydrops with cholelithiasis without any pain.. Underlying chronic AFib/not on anticoagulation/chronic pain syndrome/hypertension/hyperlipidemia/history of DVT/hypothyroidism/lumbar spondylosis/anxiety depression/peripheral artery disease. PT OT to see. Will get x-ray thoracal lumbar to ensure stability of the fracture as recommended by Neurosurgery. Follow-up with Neurosurgery in 6 weeks. Will have PT OT see likely needs SNF placement Subjective Date/time seen: 04/03/23 12:06 Interval history: 87-year-old female presents after a fall. Systemic of bed when she lost her balance and fell backwards. Say struck her head and struck her lower back. She was able to ambulate afterwards but had severe back pain and also had chest pain. She presented to the ER on 04/01/2023. Blood work stable. CT chest abdomen pelvis revealed nondisplaced posterior 11th rib fracture as well as anterior fracture through T9 and fracture of L2 transverse process. Neurosurgery has been consulted for vertebral fracture. TLSO brace has been advised and fitting in process. Pain controlled with hydrocodone p.r.n.. Brief fracture with incentive spirometry and pain control. Urinalysis positive for UTI. Head CT is negative cervical spine CT with no fracture or traumatic malalignment. CT abdomen showed gallbladder hydrops with cholelithiasis without any pain. 04/03/2023: Some pain in the back tolerable. Got fitted with TLSO brace yesterday. No new complaints. Review of Systems Review of Systems: All systems reviewed & are unremarkable except as noted in HPI and below Exam Narrative: GENERAL: Well-appearing, in no acute distress, pleasant and cooperative wearing a TLSO brace today HEAD: Normocephalic, atraumatic. EYES: PERRLA and EOMI. ENT: Nares clear, no rhinorrhea or epistaxis.? Mucous membranes moist. NECK: Supple.? No midli
[2023-04-03 14:00] VITALS: BP 114/64; PULSE 56; RESP 18; TEMP 36.6; O2SAT 100
[2023-04-03] MEDS: ATORVASTATIN 10 MG TABLET PO (20:44)
[2023-04-03 21:02] VITALS: BP 112/58; PULSE 58; RESP 18; TEMP 37.1; O2SAT 93
[2023-04-04] MEDS: HYDROcodone/acetaminophen (*CRX) 10-325 MG TABLET 1 TAB PO ×3 (01:54→17:59)
[2023-04-04] MEDS: LEVOTHYROXINE SODIUM 88 MCG TABLET PO (05:23)
[2023-04-04 06:00] VITALS: BP 121/62; PULSE 60; RESP 18; TEMP 36.3; O2SAT 95
[2023-04-04 06:32] LABS: Basophils Percent Auto 0.3 % (0.2-1.2); Eosinophils Absolute Auto 0.1 K/mm3 (0-0.3); Eosinophils Percent Auto 3.4 % (0-4.4); Hematocrit 37.5 % (37.0-47.0); Hemoglobin 11.6 g/dL (12.0-15.0); Immature Platelet Fraction Pct 3.8 % (0.9-11.2); Lymphocytes Absolute Auto 0.53 K/mm3 (0.9-3.2); Lymphocytes Percent Auto 17.9 % (18.3-44.2); Mean Corpuscular HGB Conc 30.9 g/dl (32-36); Mean Corpuscular Hemoglobin 30.7 pg (26-34); Mean Corpuscular Volume 99.2 fl (80-100); Mean Platelet Volume 10.2 fl (7.4-10.4); Monocytes Absolute Auto 0.4 K/mm3 (0.1-0.6); Monocytes Percent Auto 14.2 % (2.6-8.5); Neutrophils Absolute Auto 1.9 K/mm3 (1.3-6.7); Neutrophils Percent Auto 64.2 % (45.5-73.1); Platelet Count Result 143 k/mm3 (150-375); Red Blood Count 3.78 M/mm3 (4.2-5.4); Red Cell Distribution Width 15.3 % (11.5-14.5)
[2023-04-04 06:40] LABS: Alanine Aminotransferase 15 U/L (6-35); Albumin Level 3.4 g/dL (3.5-5.1); Alkaline Phosphatase 119 U/L (38-126); Aspartate Amino Transferase 25 U/L (14-36); Bilirubin,Total 0.7 mg/dL (0.2-1.3); Blood Urea Nitrogen 19 mg/dL (7-17); Calcium 8.6 mg/dL (8.4-10.2); Carbon Dioxide > 40 mmol/L (22-30); Chloride 95 mmol/L (98-107); Estimated CRCL calculation 49 ml/min; Estimated Glomerular Filt Rate > 60; Glucose 99 mg/dL (65-110); Magnesium 1.8 mg/dL (1.6-2.3); Sodium 135 mmol/L (137-145)
[2023-04-04] MEDS: GABAPENTIN 100 MG CAPSULE PO ×3 (08:04→18:00)
[2023-04-04] MEDS: ASPIRIN 325 MG TABLET PO (08:04)
[2023-04-04] MEDS: rOPINIRole HCL 1 MG TABLET 4 MG PO ×2 (08:05→18:00)
[2023-04-04] MEDS: SILVERGEL (ELTA) 45 ML 1 APPLIC TOPICAL (08:05)
[2023-04-04] MEDS: PANTOPRAZOLE 40 MG TABLET PO (08:05)
[2023-04-04] MEDS: VENLAFAXINE HCL XR 75 MG CAP.ER.24H 150 MG PO (08:06)
[2023-04-04] MEDS: CYCLOBENZAPRINE HCL 5 MG TABLET PO ×2 (13:07→20:59)
[2023-04-04 14:00] VITALS: BP 125/69; PULSE 75; RESP 16; TEMP 36.3; O2SAT 99
--- NOTE | 2023-04-04 14:16 | PM.IMPN ---
Progress Note: A&P Assessment and Plan (1) Closed rib fracture: Code(s): S22.39XA - Fracture of one rib, unspecified side, initial encounter for closed fracture Status: Acute (2) Closed fracture of T9 vertebra: Code(s): S22.079A - Unspecified fracture of T9-T10 vertebra, initial encounter for closed fracture Status: Acute (3) Fracture of transverse process of lumbar vertebra: Code(s): S32.009A - Unspecified fracture of unspecified lumbar vertebra, initial encounter for closed fracture Status: Acute (4) CKD (chronic kidney disease), stage III: Code(s): N18.30 - Chronic kidney disease, stage 3 unspecified Status: Acute (5) UTI (urinary tract infection): Code(s): N39.0 - Urinary tract infection, site not specified Status: Acute (6) Chronic a-fib: Code(s): I48.20 - Chronic atrial fibrillation, unspecified Status: Acute (7) Essential (primary) hypertension: Code(s): I10 - Essential (primary) hypertension Status: Acute (8) Leg ulcer, left: Code(s): L97.929 - Non-pressure chronic ulcer of unspecified part of left lower leg with unspecified severity Status: Acute Plan 87-year-old female presents after a fall. Systemic of bed when she lost her balance and fell backwards. Say struck her head and struck her lower back. She was able to ambulate afterwards but had severe back pain and also had chest pain. She presented to the ER on 04/01/2023. Blood work stable. CT chest abdomen pelvis revealed nondisplaced posterior 11th rib fracture as well as anterior fracture through T9 and fracture of L2 transverse process. Neurosurgery has been consulted for vertebral fracture. TLSO brace has been advised and got fitted with it 04/02/2023. Pain controlled with hydrocodone p.r.n.. Brief fracture with incentive spirometry and pain control. Urinalysis positive for UTI. Receive ceftriaxone follow urine culture and will continue ceftriaxone head CT is negative cervical spine CT with no fracture or traumatic malalignment. CT abdomen showed gallbladder hydrops with cholelithiasis without any pain.. Underlying chronic AFib/not on anticoagulation/chronic pain syndrome/hypertension/hyperlipidemia/history of DVT/hypothyroidism/lumbar spondylosis/anxiety depression/peripheral artery disease. PT OT to see. Will get x-ray thoracal lumbar to ensure stability of the fracture as recommended by Neurosurgery. Follow-up with Neurosurgery in 6 weeks. Will have PT OT see likely needs SNF placement. Add Flexeril. Also gabapentin Subjective Date/time seen: 04/04/23 14:16 Interval history: 87-year-old female presents after a fall. Systemic of bed when she lost her balance and fell backwards. Say struck her head and struck her lower back. She was able to ambulate afterwards but had severe back pain and also had chest pain. She presented to the ER on 04/01/2023. Blood work stable. CT chest abdomen pelvis revealed nondisplaced posterior 11th rib fracture as well as anterior fracture through T9 and fracture of L2 transverse process. Neurosurgery has been consulted for vertebral fracture. TLSO brace has been advised and fitting in process. Pain controlled with hydrocodone p.r.n.. Brief fracture with incentive spirometry and pain control. Urinalysis positive for UTI. Head CT is negative cervical spine CT with no fracture or traumatic malalignment. CT abdomen showed gallbladder hydrops with cholelithiasis without any pain. 04/03/2023: Some pain in the back tolerable. Got fitted with TLSO brace yesterday. No new complaints. 04/04/2023: Back pain is still ongoing. Uses TLSO brace regularly. No other complaints working with therapy Review of Systems Review of Systems: All systems reviewed & are unremarkable except as noted in HPI and below Exam Narrative: GENERAL: Well-appearing, in no acute distress, pleasant and cooperative wearing a TLSO brace today HEAD:
[2023-04-04] MEDS: ATORVASTATIN 10 MG TABLET PO (20:59)
[2023-04-04 21:37] VITALS: O2SAT 97
[2023-04-04 21:52] VITALS: BP 130/70; PULSE 61; RESP 16; TEMP 36.1; O2SAT 97
[2023-04-05] MEDS: HYDROcodone/acetaminophen (*CRX) 10-325 MG TABLET 1 TAB PO ×3 (02:37→14:56)
[2023-04-05 06:00] VITALS: BP 137/75; PULSE 65; RESP 18; TEMP 36; O2SAT 90
[2023-04-05] MEDS: LEVOTHYROXINE SODIUM 88 MCG TABLET PO (06:26)
[2023-04-05] MEDS: CYCLOBENZAPRINE HCL 5 MG TABLET PO ×2 (08:57→14:57)
[2023-04-05] MEDS: ASPIRIN 325 MG TABLET PO (08:58)
[2023-04-05] MEDS: PANTOPRAZOLE 40 MG TABLET PO (08:58)
[2023-04-05] MEDS: GABAPENTIN 100 MG CAPSULE PO ×2 (08:58→11:53)
[2023-04-05] MEDS: rOPINIRole HCL 1 MG TABLET 4 MG PO (08:58)
[2023-04-05] MEDS: SILVERGEL (ELTA) 45 ML 1 APPLIC TOPICAL (08:59)
[2023-04-05] MEDS: VENLAFAXINE HCL XR 75 MG CAP.ER.24H 150 MG PO (08:59)
--- NOTE | 2023-04-05 12:39 | PM.DS ---
DS: Admitting Diagnosis Discharge Date 04/05/23 Admitting Diagnosis Fall DS: Discharge Diagnosis Discharge Diagnosis (1) UTI (urinary tract infection): Code(s): N39.0 - Urinary tract infection, site not specified Status: Acute (2) Closed rib fracture: Code(s): S22.39XA - Fracture of one rib, unspecified side, initial encounter for closed fracture Status: Acute (3) Closed fracture of T9 vertebra: Code(s): S22.079A - Unspecified fracture of T9-T10 vertebra, initial encounter for closed fracture Status: Acute (4) Fracture of transverse process of lumbar vertebra: Code(s): S32.009A - Unspecified fracture of unspecified lumbar vertebra, initial encounter for closed fracture Status: Acute (5) CKD (chronic kidney disease), stage III: Code(s): N18.30 - Chronic kidney disease, stage 3 unspecified Status: Acute (6) Chronic a-fib: Code(s): I48.20 - Chronic atrial fibrillation, unspecified Status: Acute (7) Essential (primary) hypertension: Code(s): I10 - Essential (primary) hypertension Status: Acute (8) Leg ulcer, left: Code(s): L97.929 - Non-pressure chronic ulcer of unspecified part of left lower leg with unspecified severity Status: Acute DS: Summary Hospital Course Hospital Course: 87-year-old female presents after a fall.? Systemic of bed when she lost her balance and fell backwards.? Say struck her head and struck her lower back.? She was able to ambulate afterwards but had severe back pain and also had chest pain.? She presented to the ER on 04/01/2023.? Blood work stable.? CT chest abdomen pelvis revealed nondisplaced posterior 11th rib fracture as well as anterior fracture through T9 and fracture of L2 transverse process.? Neurosurgery has been consulted for vertebral fracture.? TLSO brace has been advised and got fitted with it 04/02/2023.? Pain controlled with hydrocodone p.r.n..? Rib fracture with incentive spirometry and pain control.? Urinalysis positive for UTI.? Receive ceftriaxone follow urine culture which grew Proteus. Will switch to cefdinir at discharge. Head CT is negative cervical spine CT with no fracture or traumatic malalignment.? CT abdomen showed gallbladder hydrops with cholelithiasis without any pain..? Underlying chronic AFib/not on anticoagulation/chronic pain syndrome/hypertension/hyperlipidemia/history of DVT/hypothyroidism/lumbar spondylosis/anxiety depression/peripheral artery disease.? PT OT to see.? X-ray thoracal lumbar after TLSO brace to ensure stability of the fracture as recommended by Neurosurgery was done.? Follow-up with Neurosurgery in 6 weeks.? PT OT evaluated and care coordination arrange for further rehabilitation at the SNF Time Spent with Patient Time attestation: Total time spent providing and/or coordinating discharge services: Forty Exam Narrative: GENERAL: Well-appearing, in no acute distress, pleasant and cooperative wearing a TLSO brace HEAD: Normocephalic, atraumatic. EYES: PERRLA and EOMI. ENT: Nares clear, no rhinorrhea or epistaxis.? Mucous membranes moist. NECK: Supple.? No midline tenderness BACK: + Lumbar tenderness CHEST: Clear to auscultation.? No respiratory distress. + anterior chest wall tenderness HEART: Regular rate and rhythm.? Normal peripheral pulses. ABDOMEN: Soft, nontender, nondistended EXTREMITIES: Normal range of motion.? No edema. SKIN: Warm, dry, no rash. NEURO: No focal deficits.? Alert and oriented x3. PSYCH: Normal mood and affect. DS: Data Imaging Radiologist's impression: ITS Impressions Head CT 04/01/23 17:41 IMPRESSION: No acute intracranial process. Cervical Spine CT 04/01/23 17:46 IMPRESSION: No acute fracture or traumatic malalignment in the cervical spine. Chest/Abdomen/Pelvis/Spine CT 04/01/23 17:58 IMPRESSION: Nondisplaced right posterior 11th rib fracture. Oblique fracture through the anterior por
[2023-04-05 13:50] LABS: SARS-CoV-2 RNA PCR Negative (Negative)
[2023-04-05 14:00] VITALS: BP 117/53; PULSE 66; RESP 16; TEMP 36; O2SAT 99
== END 2023-04-05 15:05 ==
LOC: ANHED 16:09 → ANH3MEDSUR 21:47
PROVIDERS: Admitting Provider Internal Medicine; Emergency Provider Emergency Medicine; PCP Emergency Medicine; Visit Provider Internal Medicine
DX: S22.31XA Fracture of one rib, right side, initial encounter for closed fracture (principal); S22.078A Other fracture of T9-T10 vertebra, initial encounter for closed fracture; S32.028A Other fracture of second lumbar vertebra, initial encounter for closed fracture; W01.198A Fall on same level from slipping, tripping and stumbling with subsequent striking against other object, initial encounter; L97.929 Non-pressure chronic ulcer of unspecified part of left lower leg with unspecified severity; N39.0 Urinary tract infection, site not specified; I48.20 Chronic atrial fibrillation, unspecified; K82.1 Hydrops of gallbladder; K80.20 Calculus of gallbladder without cholecystitis without obstruction; G89.29 Other chronic pain; G62.9 Polyneuropathy, unspecified; I12.9 Hypertensive chronic kidney disease with stage 1 through stage 4 chronic kidney disease, or unspecified chronic kidney disease; N18.30 Chronic kidney disease, stage 3 unspecified; E78.5 Hyperlipidemia, unspecified; E89.0 Postprocedural hypothyroidism; F32.9 Major depressive disorder, single episode, unspecified; I73.9 Peripheral vascular disease, unspecified; Z20.822 Contact with and (suspected) exposure to COVID-19; Z86.718 Personal history of other venous thrombosis and embolism; Z87.891 Personal history of nicotine dependence; Z79.82 Long term (current) use of aspirin; Z79.891 Long term (current) use of opiate analgesic; Z79.51 Long term (current) use of inhaled steroids; E66.9 Obesity, unspecified; Z68.31 Body mass index [BMI] 31.0-31.9, adult
CPT/HCPCS: 36415; 70450; 71250; 72080; 72125; 72128; 72131; 74176; 80053; 81001; 82948; 83735; 84484; 85025; 85055; 87077; 87086; 87186; 87635; 93005; 96365; 96366; 96375; 97110; 97162; 97165; 97530; 97535; 99285; A9270; G0378; J0696; J1170; J7120

== ENCOUNTER 2023-04-29 08:45 | Observation (INO) | payer MEDICARE, SELFPAY ==
[2023-04-29] VITALS (23 sets, daily range): BP systolic 107–150; BP diastolic 51–120; PULSE 41–77; RESP 11–24; TEMP 36.4–37.4; O2SAT 92–100
--- NOTE | ~2023-04-29 | US_ITS ---
EXAMINATION: US venous doppler [facility] DATE: 04/29/2023 11:06 INDICATION: Bilateral lower limb swelling TECHNIQUE: Rangel scale images without and with compression and Doppler images of the bilateral lower e xtremity veins were obtained. COMPARISON: 03/20/2023 FINDINGS: The right common femoral vein, profunda femoral vein, femoral vein, popliteal vein, peroneal trunk, p osterior tibial veins, and greater saphenous vein are patent. There is partial thrombosis of the left femoral vein. The left common femoral vein, profunda femoral vein, popliteal vein, peroneal trunk, posterior tibial veins, and greater saphenous vein are patent. IMPRESSION: 1. Partial thrombosis of the left femoral vein, otherwise patent bilateral lower extremity veins. These findings were discussed with Tamica Feliz PA-C in the Emergency Department at 1133 hours on 04/29/2023. Reviewed, dictated and finalized at location B. IMPRESSION: 1. Partial thrombosis of the left femoral vein, otherwise patent bilateral lowe r extremity veins. These findings were discussed with Tamica Feliz PA-C in the Emergency Dep artment at 1133 hours on 04/29/2023.
--- NOTE | ~2023-04-29 | XR_ITS ---
EXAMINATION: XR chest 1V INDICATION: Shortness of breath TECHNIQUE: Frontal view of the chest is obtained. COMPARISON: 03/20/2023 FINDINGS: An airspace opacity is present in the left upper lung zone. There is a mild diffuse interst itial pattern. Cardiomegaly is noted. No pleural effusion or pneumothorax. There is elevation of the right hemidiaphragm, chronic. Surgical changes are noted in the left neck, likely hemithyroidectomy. There is vertebroplasty change in the upper lumbar spine. A partially imaged inferior vena cava filte r is noted. IMPRESSION: 1. Cardiomegaly with mild pulmonary edema. 2. Possible nodule of the left upper lobe. Follow-up with nonemergent chest CT is recommended. Reviewed, dictated and finalized at location B.
--- NOTE | ~2023-04-29 | CT_ITS ---
EXAMINATION: CTA chest PE protocol DATE: 04/29/2023 13:13 INDICATION: Dyspnea. TECHNIQUE: Computed tomography angiography (CTA) of the chest was performed with 100 mL Omnipaque-350 intravenous contrast timed to evaluate the pulmonary arteries. Coronal maximum intensity projection 3D-reconstructions were created by the technologist. Automated exposure control and iterative reconst ruction technique were employed. The dose-length product was 804.30 mGy-cm. COMPARISON: Chest CT 08/15/2021, 04/01/23 FINDINGS: The lungs demonstrate mild atelectasis. There is smooth septal thickening bilaterally, cons istent with mild pulmonary edema. A calcified right lung nodule and calcified right hilar lymph node are consistent with old granulomatous disease. No pleural effusion. Cardiomegaly is noted. There is a closure device in left atrial appendage. There is no pulmonary embolus. There is a filter in the inf erior vena cava. There is a moderate-sized sliding hiatal hernia. There are old healed bilateral rib fractures. There are old fractures of right L1 and L2 transverse processes. There are bridging endpla te osteophytes at multiple levels in the spine, consistent with diffuse idiopathic skeletal hyperosto sis (DISH). There is a subacute nondisplaced distraction fracture of T9 vertebral body, stable from . There are chronic burst fractures of T12 and L1 with changes of vertebroplasty. There is an ol d healed fracture of the sternum. IMPRESSION: 1. No pulmonary embolus. 2. Mild pulmonary edema. 3. Moderate-sized sliding hiatal hernia. Reviewed, dictated and finalized at location A.
--- NOTE | ~2023-04-29 | CT_ITS ---
EXAMINATION: CT thoracic lumbar wo con DATE: 04/29/2023 10:42 INDICATION: Back pain post fall TECHNIQUE: Computed tomography (CT) of the thoracic spine was performed without intravenous contrast. Automated exposure control and iterative reconstruction technique were employed. The dose-length pro duct was 1780.43 mGy-cm. COMPARISON: CT dated 04/01/2023 FINDINGS: Thoracic spine: Mild upper thoracic levocurvature and kyphosis. Again seen are chronic T12 and L1 burst fractures wit h vertebral plasties at both levels which includes extravasation of methylmethacrylate into the adjac ent T11-T12 and L1-L2 disc spaces. No significant change in a nondisplaced subacute fracture extendin g across the anteroinferior aspect of the T9 vertebral body. Chronic mild anterior wedging at T11. Re maining vertebral body heights are normal. No new fractures identified. Multilevel moderate disc heig ht loss throughout the thoracic spine with bridging osteophytes at multiple levels consistent with di ffuse idiopathic skeletal hyperostosis (DISH). There is mild central canal stenosis at T12 and L1 res ulting from the retropulsion associated with the burst fractures. No central canal stenosis in the mo re cephalad thoracic spine. There is mild neural foraminal stenosis at a few levels in the thoracic s pine, greatest bilaterally at T8-T9 and T9-T10 and moderate severity on the right at T11-T12. Mild pu lmonary edema in the visualized lungs. Small paravertebral hematoma associated with the T9 fracture. Paravertebral soft tissues are otherwise unremarkable. Lumbar spine: 7 mm anterolisthesis L5 on S1. Mild upper lumbar levocurvature. In addition to the previously noted b urst fracture with vertebroplasty at L1, there is a small likely chronic central endplate compression fracture along the superior endplate of L2 associated with a portion of the methylmethacrylate extra vasated into the disc space. Remaining vertebral body heights are normal. No acute fractures. Moderat e to severe left-sided predominant disc height loss at L4-L5. Moderate disc height loss at L5-S1 and vacuum phenomena at L2-L3 without significant disc height loss and at L3-L4 with mild disc height los s. There is multilevel bilateral severe lumbar facet osteoarthritis. Disc bulges with mild central ca nal stenosis at L3-L4 and L4-L5 and without significant central canal stenosis at L5-S1. Multilevel l umbar neural foraminal stenosis, moderate to severe bilaterally at L1-L2 and moderate throughout the remainder of the lumbar spine. Infrarenal IVC filter. Diverticula along the visualized sigmoid colon. Orthopedic instrumentation along the right femur on the cloud subject matter expert topogram. IMPRESSION: 1. No change in a nondisplaced subacute fracture across the T9 vertebral body. 2. Stable appearance of chronic T12 and L1 burst fractures with prior vertebroplasty. 3. Moderate to severe thoracic and lumbar spondylosis. T9 vertebral body Reviewed, dictated and finalized at location A. IMPRESSION: 1. No change in a nondisplaced subacute fracture across the T9 vertebral body. 2. Stable appearance of chronic T12 and L1 burst fractures with prior vertebrop lasty. 3. Moderate to severe thoracic and lumbar spondylosis. T9 vertebral body
--- NOTE | ~2023-04-29 | XR_ITS ---
EXAMINATION: XR hip BI 2V w AP pelvis DATE: 04/29/2023 11:10 INDICATION: Pain after fall TECHNIQUE: AP view the pelvis and two views of each hip were obtained. COMPARISON: 04/15/2022 FINDINGS: Bone alignment is normal. There is no fracture. There are changes of right hip arthroplasty . Also noted are changes of partially imaged plate and screw and intramedullary demarco fixation of the r ight femur. IMPRESSION: 1. No acute osseous abnormality. Reviewed, dictated and finalized at location B.
--- NOTE | ~2023-04-29 | CT_ITS ---
EXAMINATION: CT cervical spine wo con DATE: 04/29/2023 10:42 INDICATION: Neck pain post fall TECHNIQUE: Computed tomography (CT) of the cervical spine was performed without intravenous contrast. Automated exposure control and iterative reconstruction technique were employed. The dose-length pro duct was 370.98 mGy-cm. COMPARISON: None FINDINGS: Alignment is normal. Vertebral body heights are normal. No fracture. Severe disc height loss at C3-C4 and T3-T4. Moderate disc height loss at C2-C3, C5-C6, C6-C7 and T2-T3. Mild disc height loss at the remaining cervical and upper thoracic levels. Severe uncovertebral osteoarthritis bilaterally at C3-C 4, C5-C6 and C6-C7 and on the left at C4-C5. Mild to moderate uncovertebral osteoarthritis at the rem aining levels. There is also multilevel bilateral mild to moderate cervical facet osteoarthritis. Tog ether this contributes to moderate neural foraminal stenosis on the left at C5-C6 and C6-C7 and on th e left at C3-C4 with mild stenosis at the remaining neural foramina. Atherosclerotic calcifications a t the bilateral carotid bulbs. Postoperative change of prior left thyroidectomy. Cervical soft tissue s are otherwise unremarkable. Mild groundglass opacity and smooth septal line thickening in the bilat eral upper lungs consistent with mild pulmonary edema. IMPRESSION: 1. Severe cervical spondylosis without acute osseous abnormality. 2. Mild pulmonary edema in the visualized upper lungs. Reviewed, dictated and finalized at location A.
--- NOTE | ~2023-04-29 | CT_ITS ---
EXAMINATION: CT brain wo con DATE: 04/29/2023 10:42 INDICATION: Head injury. TECHNIQUE: Computed tomography (CT) of the head was performed without intravenous contrast. The mA wa s adjusted according to patient size. Iterative reconstruction technique was employed. The dose-lengt h product was 681.00 mGy-cm. COMPARISON: Head CT 04/01/2023, 06/08/12 FINDINGS: There is chronic encephalomalacia in right parietal occipital region with overlying craniot valeria. There is dural thickening and calcification in this area with greatest thickness measuring 7 mm, stable from 06/08/2012. There are scattered areas of low attenuation in the cerebral white matter. T here is no acute ischemic infarct or intracranial hemorrhage. There is ex vacuo dilatation of right l ateral ventricle. There are likely changes of ocular lens replacement surgeries. There is mild mucosa l thickening in the paranasal sinuses. There is a left mastoid effusion. IMPRESSION: 1. Dural thickening and calcification in right parietal occipital region, stable from 06/08/2012, whi ch may be postoperative change or meningioma. 2. Chronic encephalomalacia in right parietal-occipital region. 3. Stable mild nonspecific cerebral white matter disease, which likely represents chronic small vesse l ischemic disease. Reviewed, dictated and finalized at location A. IMPRESSION: 1. Dural thickening and calcification in right parietal occipital region, stabl e from 06/08/2012, which may be postoperative change or meningioma. 2. Chronic encephalomalacia in right parietal-occipital region. 3. Stable mild nonspecific cerebral white matter disease, which likely represen ts chronic small vessel ischemic disease.
--- NOTE | 2023-04-29 09:23 | ECG_ITS ---
Measurements Intervals [place] Rate: 60 P: 70 MO: 297 QRS: 22 QRSD: 109 T: 59 QT: 345 QTc: 347 Interpretive Statements ATRIAL FLUTTER WITH NORMAL VENTRICULAR RATE LOW QRS VOLTAGE IN PRECORDIAL LEADS NONSPECIFIC ST & T-WAVE ABNORMALITY- ANT/HIGH LAT LEADS BASELINE ARTIFACT- I, II, III, AVR, AVL, AVF, V1-V6 ABNORMAL ECG COMPARED TO ECG 04/01/2023 16:55:31 HEART RATE HAS INCREASED Electronically Signed On 04-29-2023 13:51:40 CDT by Yazan Mehta D.O.
--- NOTE | 2023-04-29 10:13 | ED.FALL ---
HPI - Fall General Chief Complaint: Fall <Tamica Feliz PA-C - Last Filed: 04/29/23 19:02> Stated Complaint: fall? <Tamica Feliz PA-C - Last Filed: 04/29/23 19:02> Time Seen by Provider: 04/29/23 09:03 <Tamica Feliz PA-C - Last Filed: 04/29/23 19:02> History of Present Illness HPI Narrative: 87-year-old female with recent diagnosis on 04/01 for a nondisplaced posterior 11th rib fracture as well as an anterior fracture through T9 and a fracture of L2 transverse process, multiple falls, CKD, hyperlipidemia, hypertension, peripheral arterial disease, CHF reports for evaluation for multiple complaints. Patient was sent here via EMS from [facility] after she reportedly slipped out of her bed in the middle the night. Per the patient, she was wearing a slippery nightgown and has been having frequent nightmares recently. States she believes she is having a nightmare and slipped out of her bed, she woke up with her bottom on the floor in her back against the bed. She does not believe she hit her head however is unable to recall details of the event. She is reporting headache, neck pain, back pain since the fall. Denies focal numbness or weakness, vision changes. She is also reporting shortness of breath and orthopnea which is worse from her baseline since she had the 11th rib fracture. She denies cough, congestion, chest pain. Patient is also reporting lower extremity edema, right greater than left and lower extremity erythema that developed yesterday. She does report a history of DVT and is not currently anticoagulated. 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 Skinner, secondary to recurrent epistaxis. 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 She denies fever, nausea or vomiting, abdominal pain. <Tamica Feliz PA-C - Last Filed: 04/29/23 19:02> Related Data Home Medications: Home Medications Medication Instructions Recorded Confirmed ascorbic acid (vitamin C) 500 mg 500 mg PO DAILY 08/06/19 04/29/23 chewable tablet aspirin 325 mg tablet 325 mg PO DAILY 08/06/19 04/29/23 multivitamin,[id number]-qduo-[id number] 1 tablet PO DAILY 08/06/19 04/29/23 (Complete Multivitamin tablet) gabapentin 100 mg capsule 100 mg PO TID 08/13/21 04/29/23 furosemide 40 mg tablet 40 mg PO QAM 04/01/23 04/29/23 potassium chloride 20 mEq 20 meq PO DAILY 04/01/23 04/29/23 tablet,extended release(part/cryst) albuterol sulfate 90 mcg/actuation 2 inh inhalation Q4H PRN Shortness 04/28/23 04/29/23 aerosol inhaler Of Breath ropinirole 4 mg tablet 4 mg PO HS 04/28/23 04/29/23 metolazone 5 mg tablet 5 mg PO 3XW 04/29/23 04/29/23 oxycodone-acetaminophen 10 mg-325 0.5 tablet QID 04/29/23 04/29/23 mg tablet polyethylene glycol 3350 17 gram 17 g PO BID 04/29/23 04/29/23 oral powder packet (Miralax) senna-docusate sodium capsule 1 cap PO BID PRN cosntipation 04/29/23 04/29/23 venlafaxine 150 mg 300 mg PO DAILY 04/29/23 04/29/23 capsule,extended release 24 hr <Tamica Feliz PA-C - Last Filed: 04/29/23 19:02> Allergies/Adverse Reactions: Allergies Allergy/AdvReac Type Severity Reaction Status Date / Time Penicillins Allergy Severe Hives Verified 04/28/23 11:14 Sulfa (Sulfonamide Allergy Intermediate hives Verified 04/28/23 11:14 Antibiotics) morphine AdvReac Intermediate Hallucinati Verified 04/28/23 11:14 ng bumetanide AdvReac Nausea Verified 04/28/23 11:14 <Tamica Feliz PA-C - Last Filed: 04/29/23 19:02> Review of Systems Review of Systems: CONSTITUTIONAL: Denies fever, chills EYES: Denies visual changes, redness, or discharge. ENT: Denies rhinorrhea, congestion, sore throat, or otalgia. CARDIOVASCULAR: See HPI RESPIRATORY: See HPI GASTROINTESTINAL: Denies abdominal pain, nausea, vomiting, or diarrhea. GENITOURINARY: Denies dysuria o
[2023-04-29] MEDS: ACETAMINOPHEN 500 MG TABLET 1000 MG PO (11:34)
[2023-04-29 12:27] LABS: Basophils Percent Auto 0.5 % (0.2-1.2); Eosinophils Absolute Auto 0.1 K/mm3 (0-0.3); Eosinophils Percent Auto 1.6 % (0-4.4); Hematocrit 37.8 % (37.0-47.0); Hemoglobin 12.1 g/dL (12.0-15.0); Immature Granulocyte Absolute 0.01 K/mm3 (0.00-0.031); Immature Granulocyte Percent A 0.3 % (0-0.5); Lymphocytes Absolute Auto 0.48 K/mm3 (0.9-3.2); Lymphocytes Percent Auto 12.8 % (18.3-44.2); Mean Corpuscular Hemoglobin 31.5 pg (26-34); Mean Corpuscular Volume 98.4 fl (80-100); Mean Platelet Volume 9.7 fl (7.4-10.4); Monocytes Absolute Auto 0.5 K/mm3 (0.1-0.6); Neutrophils Absolute Auto 2.7 K/mm3 (1.3-6.7); Neutrophils Percent Auto 72.8 % (45.5-73.1); Platelet Count Result 154 k/mm3 (150-375); Red Blood Count 3.84 M/mm3 (4.2-5.4); Red Cell Distribution Width 14.8 % (11.5-14.5); White Blood Count 3.8 K/mm3 (4.5-10.0)
[2023-04-29 12:39] LABS: Lactic Acid Reflex 1.2 mmol/L (0.7-2.0)
[2023-04-29 12:43] LABS: Alanine Aminotransferase 19 U/L (6-35); Alkaline Phosphatase 150 U/L (38-126); Anion Gap 8 mmol/L (8-16); Aspartate Amino Transferase 47 U/L (14-36); Blood Urea Nitrogen 44 mg/dL (7-17); CRP 2.1 mg/dL (<1.0); Calcium 9.3 mg/dL (8.4-10.2); Carbon Dioxide 38 mmol/L (22-30); Chloride 94 mmol/L (98-107); Estimated CRCL calculation 34 ml/min; Estimated Glomerular Filt Rate 53; Glucose 98 mg/dL (65-110); Potassium 3.5 mmol/L (3.4-5.0); Sodium 140 mmol/L (137-145)
[2023-04-29 12:50] LABS: Partial Thromboplastin Time 29.8 SECONDS (22.3-36.8); Prothrombin Time 14.1 Seconds (11.1-14.7)
[2023-04-29 12:52] LABS: NT Pro B Type Natriuretic Pept 1370 pg/mL (19.9-100); Troponin I 0.015 ng/mL (0.000-0.034)
[2023-04-29 12:55] LABS: Appearance Urine Cloudy (Clear); Bacteria Urine 4+ /hpf; Bilirubin Urine Negative (Negative); Blood Urine Negative (Negative); Color Urine Yellow (Yellow); Glucose Urine UA Negative (Negative); Ketones Urine Trace mg/dL (Negative); Leukocyte Esterase Ur Trace LEU/UL (Negative); Need Manual Microscopic Reviewed; Nitrate Urine Positive (Negative); Non Pathogenic Casts 0-2; Protein Urine Trace mg/dL (Negative); RBC Urine 0-2 /hpf (0-2); Specific Grav Ur 1.014 (1.001-1.035); Squamous Epithelial Cell Urine Many /hpf (Few); pH Urine 5.5 (5.0-9.0)
[2023-04-29 12:56] LABS: Add Urine Microscopic? YES
[2023-04-29 13:02] LABS: Erythrocyte Sedimentation Rate 40 mm/hr (0-20)
[2023-04-29] MEDS: ENOXAPARIN 80 MG/0.8 ML SYRINGE 65 MG SUB-Q (16:17)
--- NOTE | 2023-04-29 17:26 | ADMGEN ---
This patient, Zohreh Oakes, was admitted to 3 Medical Room 340-01. Patient/family oriented to hospital policies and general routines including ID bracelet, bed and alarms, visiting hours, pain management, procedures, bathroom and other care routines, personal items, smoking policy, room service/diet, and visiting hours. Information on how to activate the Rapid Response Team has been discussed. Patient/Family are encouraged to report perceived risks to care and to ask questions if they do not understand what they are told or what they should do.
--- NOTE | 2023-04-29 21:03 | PM.IMHP ---
H&P: HPI History of Present Illness Date/Time: 04/29/23 21:03 Chief Complaint: generalized weakness Narrative: This is an 87-year-old female with past medical history significant for atrial fibrillation, chronic kidney disease, chronic pain disorder, morbid obesity, hypertension, peripheral tear disease. patient with history of recent fall with 5 days hospitalization and 3 weeks at rehabilitation discharge home comes back to emergency room due to generalized weakness, generalized malaise, chills, right lower extremity swelling ,redness, warmth, tenderness. Patient had a fall no loss of consciousness. Was brought to the emergency room for evaluation preliminary workup was significant for partial thrombosis of left femoral vein, a urinalysis shows 6-10 WBCs present. Patient has been admitted for further evaluation management and treatment. EXAMINATION: CTA chest PE protocol DATE: 04/29/2023 13:13 INDICATION: Dyspnea. TECHNIQUE: Computed tomography angiography (CTA) of the chest was performed with 100 mL Omnipaque-350 intravenous contrast timed to evaluate the pulmonary arteries. Coronal maximum intensity projection 3D-reconstructions were created by the technologist. Automated exposure control and iterative reconstruction technique were employed. The dose-length product was 804.30 mGy-cm. COMPARISON: Chest CT 08/15/2021, 04/01/23 FINDINGS: The lungs demonstrate mild atelectasis. There is smooth septal thickening bilaterally, consistent with mild pulmonary edema. A calcified right lung nodule and calcified right hilar lymph node are consistent with old granulomatous disease. No pleural effusion. Cardiomegaly is noted. There is a closure device in left atrial appendage. There is no pulmonary embolus. There is a filter in the inferior vena cava. There is a moderate-sized sliding hiatal hernia. There are old healed bilateral rib fractures. There are old fractures of right L1 and L2 transverse processes. There are bridging endplate osteophytes at multiple levels in the spine, consistent with diffuse idiopathic skeletal hyperostosis (DISH). There is a subacute nondisplaced distraction fracture of T9 vertebral body, stable from 04/01/23. There are chronic burst fractures of T12 and L1 with changes of vertebroplasty. There is an old healed fracture of the sternum. IMPRESSION: 1. No pulmonary embolus. 2. Mild pulmonary edema. 3. Moderate-sized sliding hiatal hernia. EXAMINATION: US venous doppler LE BI DATE: 04/29/2023 11:06 INDICATION: Bilateral lower limb swelling TECHNIQUE: Rangel scale images without and with compression and Doppler images of the bilateral lower extremity veins were obtained. COMPARISON: 03/20/2023 FINDINGS: The right common femoral vein, profunda femoral vein, femoral vein, popliteal vein, peroneal trunk, posterior tibial veins, and greater saphenous vein are patent. There is partial thrombosis of the left femoral vein. The left common femoral vein, profunda femoral vein, popliteal vein, peroneal trunk, posterior tibial veins, and greater saphenous vein are patent. IMPRESSION: 1. Partial thrombosis of the left femoral vein, otherwise patent bilateral lower extremity veins. ekg Rate 60 IN 297 QRSd 109 QT 345 QTc 347 --[place]-- P 70 QRS 22 T 59 ATRIAL FLUTTER WITH NORMAL VENTRICULAR RATE LOW QRS VOLTAGE IN PRECORDIAL LEADS NONSPECIFIC ST & T-WAVE ABNORMALITY- ANT/HIGH LAT LEADS BASELINE ARTIFACT- I, II, III, AVR, AVL, AVF, V1-V6 ABNORMAL ECG COMPARED TO ECG 04/01/2023 16:55:31 HEART RATE HAS INCREASED Electronically Signed On 04-29-2023 13:51:40 CDT by Yazan Mehta D.O. Review of Systems Review of Systems: Fall, right lower extremity swelling and tenderness, chills, generalized weakness Constitutional: Constitutional: Reports chills, Reports malaise, Reports poor appetite and Reports weakness Eyes: Eyes: Denies change in vision ENT: Denies dysphagia and Denies odynophagia Cardiovascular: Cardiovascular: Denies ch
[2023-04-30] VITALS (12 sets, daily range): BP systolic 113–120; BP diastolic 54–72; PULSE 48–69; RESP 16–20; TEMP 36.7–37.3; O2SAT 93–98
[2023-04-30] MEDS: rOPINIRole HCL 1 MG TABLET 4 MG PO ×2 (02:17→20:08)
[2023-04-30] MEDS: levoFLOXacin 750 MG/D5W 150 ML 750 MG/150 ML BAG 100 MG IVPB (04:12)
[2023-04-30 05:34] LABS: Estimated CRCL calculation 34 ml/min; Estimated Glomerular Filt Rate 53
[2023-04-30] MEDS: LEVOTHYROXINE SODIUM 88 MCG TABLET PO (05:57)
[2023-04-30] MEDS: polyethylene glycoL 3350 17 GM POWD.PACK PO (08:19)
[2023-04-30] MEDS: PANTOPRAZOLE 40 MG TABLET PO (08:20)
[2023-04-30] MEDS: VENLAFAXINE HCL XR 75 MG CAP.ER.24H 150 MG PO ×2 (08:20→20:09)
[2023-04-30] MEDS: ASPIRIN 325 MG TABLET PO (08:20)
[2023-04-30] MEDS: oxyCODONE/ACETAMINOPHEN (*CRX) 5-325 MG TABLET 1 TABLET PO (08:20)
[2023-04-30] MEDS: GABAPENTIN 100 MG CAPSULE PO ×3 (08:20→16:27)
[2023-04-30] MEDS: ENOXAPARIN 80 MG/0.8 ML SYRINGE 65 MG SUB-Q (08:29)
--- NOTE | 2023-04-30 10:52 | PM.IMPN ---
Progress Note: A&P Assessment and Plan (1) Cellulitis: Qualifiers: Laterality: right Site of cellulitis: extremity Site of cellulitis of extremity: lower extremity Qualified Code(s): L03.115 - Cellulitis of right lower limb Code(s): L03.90 - Cellulitis, unspecified Status: Acute Assessment and Plan: admit to regular medical floor was given vancomycin in the emergency room cultures in progress (2) DVT (deep venous thrombosis): Qualifiers: Affected thrombotic vein of extremity: femoral Chronicity: acute DVT location: lower extremity Laterality: left Qualified Code(s): I82.412 - Acute embolism and thrombosis of left femoral vein Code(s): I82.409 - Acute embolism and thrombosis of unspecified deep veins of unspecified lower extremity Status: Acute Assessment and Plan: Switch to oral anti coagulant (3) UTI (urinary tract infection): Code(s): N39.0 - Urinary tract infection, site not specified Status: Acute Assessment and Plan: will start Unasyn (4) CKD (chronic kidney disease), stage III: Code(s): N18.30 - Chronic kidney disease, stage 3 unspecified Status: Acute Assessment and Plan: BUN and creatinine at patient's baseline continue metolazone (5) Afib: Qualifiers: Atrial fibrillation type: paroxysmal Qualified Code(s): I48.0 - Paroxysmal atrial fibrillation Code(s): I48.91 - Unspecified atrial fibrillation Status: Acute Assessment and Plan: rate controlled (6) RLS (restless legs syndrome): Code(s): G25.81 - Restless legs syndrome Status: Acute Assessment and Plan: continue ropinirole (7) Unsteady gait: Code(s): R26.81 - Unsteadiness on feet Status: Acute Assessment and Plan: PT OT consult (8) Leg ulcer, left: Code(s): L97.929 - Non-pressure chronic ulcer of unspecified part of left lower leg with unspecified severity Status: Acute Assessment and Plan: Wound ET consult Subjective Date/time seen: 04/30/23 10:52 Interval history: No complaints Exam Narrative: patient is laying in bed Const: General: comfortable, no acute distress, well developed, alert, awake and average body habitus Nutritional Appearance: average body habitus Orientation/consciousness: patient oriented x3 HENMT: Head: normal to inspection, normocephalic and atraumatic Ears: hearing grossly normal bilaterally Face/Nose/Sinus: normal facial exam Face and sinus: normal facial exam Eyes: General: appearance normal, both eyes and all related structures Pupils: Equal, round and reactive pupils present EOM: EOMs intact bilaterally Neck: Neck: full ROM, no lymphadenopathy and no JVD Thyroid: thyroid normal Lymphatic: no lymphadenopathy noted Resp: Effort & Inspection: normal respiratory effort and able to speak in complete sentences Auscultation: clear to auscultation bilaterally Cardio: Jugular venous distension: no JVD Rate: regular rate Rhythm: regular rhythm Heart sounds: S1 normal heart sound present and S2 normal heart sound present : General: Yes deferred Skin: General skin exam: rashes and wounds noted ( ankle) Rashes: rashes noted Wounds: wounds noted ( ankle) Other: erythema Neuro: General: patient oriented x3, CN's II-XI intact bilaterally and Unable to assess gait Cranial nerves: Yes CN's II-XII intact bilaterally and Yes Equal, round and reactive pupils present Cognition (Neuro): normal cognition Speech: normal speech Gait exam (Neuro): Unable to assess gait Motor exam (neuro): 5/5 motor strength present throughout Sensory Exam: No Sensory deficit (Neuro) Extrem: General: edema bilateral ( lower extremity) Objective Data Vital Signs Vital Signs: Vital Signs - 24 hr 04/29/23 11:11 04/29/23 11:15 04/29/23 11:30 Temperature Pulse Rate 44 L 42 L Respiratory Rate 17 19 13 Blood Pres
[2023-04-30] MEDS: FUROSEMIDE 40 MG TABLET PO (11:10)
[2023-04-30] MEDS: metOLazone 5 MG TABLET PO (13:39)
[2023-04-30] MEDS: BETAMETHASONE/CLOTRIMAZOLE CR 45 GM TUBE 1 APPLIC TOPICAL ×2 (16:27→20:12)
[2023-04-30] MEDS: HYDROcodone/acetaminophen (*CRX) 10-325 MG TABLET 1 TAB PO ×2 (16:27→20:09)
[2023-04-30] MEDS: APIXABAN 5 MG TABLET 10 MG PO (20:09)
[2023-05-01] VITALS (11 sets, daily range): BP systolic 102–115; BP diastolic 54–55; PULSE 33–71; RESP 16–18; TEMP 36.4–36.8; O2SAT 94–97
[2023-05-01] MEDS: VANCOMYCIN 1,250 MG/NS 250 ML 1,250 MG/250 ML BAG 166.67 MG IVPB (01:56)
[2023-05-01] MEDS: LEVOTHYROXINE SODIUM 88 MCG TABLET PO (05:09)
[2023-05-01 05:46] LABS: Basophils Percent Auto 0.5 % (0.2-1.2); Eosinophils Absolute Auto 0.1 K/mm3 (0-0.3); Eosinophils Percent Auto 2.8 % (0-4.4); Hematocrit 34.7 % (37.0-47.0); Hemoglobin 10.8 g/dL (12.0-15.0); Immature Granulocyte Absolute 0.01 K/mm3 (0.00-0.031); Immature Granulocyte Percent A 0.5 % (0-0.5); Lymphocytes Absolute Auto 0.54 K/mm3 (0.9-3.2); Lymphocytes Percent Auto 25.6 % (18.3-44.2); Mean Corpuscular HGB Conc 31.1 g/dl (32-36); Mean Corpuscular Hemoglobin 31.4 pg (26-34); Mean Corpuscular Volume 100.9 fl (80-100); Mean Platelet Volume 10.2 fl (7.4-10.4); Monocytes Absolute Auto 0.4 K/mm3 (0.1-0.6); Neutrophils Absolute Auto 1.1 K/mm3 (1.3-6.7); Neutrophils Percent Auto 51.6 % (45.5-73.1); Platelet Count Result 123 k/mm3 (150-375); Red Blood Count 3.44 M/mm3 (4.2-5.4); White Blood Count 2.1 K/mm3 (4.5-10.0)
[2023-05-01 06:00] LABS: Anion Gap 5 mmol/L (8-16); Blood Urea Nitrogen 38 mg/dL (7-17); Calcium 8.4 mg/dL (8.4-10.2); Carbon Dioxide 36 mmol/L (22-30); Chloride 97 mmol/L (98-107); Estimated CRCL calculation 39 ml/min; Estimated Glomerular Filt Rate 47; Glucose 85 mg/dL (65-110); Potassium 3.6 mmol/L (3.4-5.0); Sodium 138 mmol/L (137-145)
[2023-05-01] MEDS: GABAPENTIN 100 MG CAPSULE PO ×3 (08:22→17:30)
[2023-05-01] MEDS: rOPINIRole HCL 1 MG TABLET 4 MG PO ×2 (08:22→20:10)
[2023-05-01] MEDS: metOLazone 5 MG TABLET PO (08:23)
[2023-05-01] MEDS: VENLAFAXINE HCL XR 75 MG CAP.ER.24H 150 MG PO ×2 (08:23→20:11)
[2023-05-01] MEDS: FUROSEMIDE 40 MG TABLET PO (08:23)
[2023-05-01] MEDS: PANTOPRAZOLE 40 MG TABLET PO (08:23)
[2023-05-01] MEDS: APIXABAN 5 MG TABLET 10 MG PO ×2 (08:23→20:10)
[2023-05-01] MEDS: HYDROcodone/acetaminophen (*CRX) 10-325 MG TABLET 1 TAB PO ×3 (08:23→20:11)
[2023-05-01] MEDS: ASPIRIN 325 MG TABLET PO (08:25)
[2023-05-01] MEDS: BETAMETHASONE/CLOTRIMAZOLE CR 45 GM TUBE 1 APPLIC TOPICAL ×2 (08:30→20:13)
[2023-05-01] MEDS: polyethylene glycoL 3350 17 GM POWD.PACK PO (08:30)
--- NOTE | 2023-05-01 11:33 | PM.IMPN ---
Progress Note: A&P Assessment and Plan (1) Cellulitis: Qualifiers: Laterality: right Site of cellulitis: extremity Site of cellulitis of extremity: lower extremity Qualified Code(s): L03.115 - Cellulitis of right lower limb Code(s): L03.90 - Cellulitis, unspecified Status: Acute Assessment and Plan: admit to regular medical floor was given vancomycin in the emergency room cultures in progress (2) DVT (deep venous thrombosis): Qualifiers: Affected thrombotic vein of extremity: femoral Chronicity: acute DVT location: lower extremity Laterality: left Qualified Code(s): I82.412 - Acute embolism and thrombosis of left femoral vein Code(s): I82.409 - Acute embolism and thrombosis of unspecified deep veins of unspecified lower extremity Status: Acute Assessment and Plan: eliquis (3) UTI (urinary tract infection): Code(s): N39.0 - Urinary tract infection, site not specified Status: Acute Assessment and Plan: will start Unasyn (4) CKD (chronic kidney disease), stage III: Code(s): N18.30 - Chronic kidney disease, stage 3 unspecified Status: Acute Assessment and Plan: BUN and creatinine at patient's baseline continue metolazone (5) Afib: Qualifiers: Atrial fibrillation type: paroxysmal Qualified Code(s): I48.0 - Paroxysmal atrial fibrillation Code(s): I48.91 - Unspecified atrial fibrillation Status: Acute Assessment and Plan: rate controlled (6) RLS (restless legs syndrome): Code(s): G25.81 - Restless legs syndrome Status: Acute Assessment and Plan: continue ropinirole (7) Unsteady gait: Code(s): R26.81 - Unsteadiness on feet Status: Acute Assessment and Plan: PT OT consult (8) Leg ulcer, left: Code(s): L97.929 - Non-pressure chronic ulcer of unspecified part of left lower leg with unspecified severity Status: Acute Assessment and Plan: Wound ET consult Subjective Date/time seen: 05/01/23 11:33 Interval history: no new complaints no cp, no sob reports that she feels ok Exam Narrative: patient is laying in bed Const: General: comfortable, no acute distress, well developed, alert, awake and average body habitus Nutritional Appearance: average body habitus Orientation/consciousness: patient oriented x3 HENMT: Head: normal to inspection, normocephalic and atraumatic Ears: hearing grossly normal bilaterally Face/Nose/Sinus: normal facial exam Face and sinus: normal facial exam Eyes: General: appearance normal, both eyes and all related structures Pupils: Equal, round and reactive pupils present EOM: EOMs intact bilaterally Neck: Neck: full ROM, no lymphadenopathy and no JVD Thyroid: thyroid normal Lymphatic: no lymphadenopathy noted Resp: Effort & Inspection: normal respiratory effort and able to speak in complete sentences Auscultation: clear to auscultation bilaterally Cardio: Jugular venous distension: no JVD Rate: regular rate Rhythm: regular rhythm Heart sounds: S1 normal heart sound present and S2 normal heart sound present : General: Yes deferred Skin: General skin exam: rashes and wounds noted ( ankle) Rashes: rashes noted Wounds: wounds noted ( ankle) Other: erythema Neuro: General: patient oriented x3, CN's II-XI intact bilaterally and Unable to assess gait Cranial nerves: Yes CN's II-XII intact bilaterally and Yes Equal, round and reactive pupils present Cognition (Neuro): normal cognition Speech: normal speech Gait exam (Neuro): Unable to assess gait Motor exam (neuro): 5/5 motor strength present throughout Sensory Exam: No Sensory deficit (Neuro) Extrem: General: edema bilateral ( lower extremity) Objective Data Vital Signs Vital Signs: Vital Signs - 24 hr 04/30/23 12:04 04/30/23 14:00 04/30/23 16:05 Temperature 98.2 F Pulse Rate 48 L 68 68 Respi
[2023-05-02] VITALS: PULSE 58
[2023-05-02 04:00] VITALS: PULSE 70
[2023-05-02 04:21] VITALS: BP 106/48; PULSE 63; RESP 16; TEMP 36.5; O2SAT 94
[2023-05-02] MEDS: levoFLOXacin 750 MG/D5W 150 ML 750 MG/150 ML BAG 100 MG IVPB (04:21)
[2023-05-02] MEDS: LEVOTHYROXINE SODIUM 88 MCG TABLET PO (05:39)
[2023-05-02 05:53] LABS: Estimated CRCL calculation 42 ml/min; Estimated Glomerular Filt Rate 53
[2023-05-02] MEDS: rOPINIRole HCL 1 MG TABLET 4 MG PO (08:24)
[2023-05-02] MEDS: ASPIRIN 325 MG TABLET PO (08:24)
[2023-05-02] MEDS: VENLAFAXINE HCL XR 75 MG CAP.ER.24H 150 MG PO (08:25)
[2023-05-02] MEDS: FUROSEMIDE 40 MG TABLET PO (08:25)
[2023-05-02] MEDS: metOLazone 5 MG TABLET PO (08:26)
[2023-05-02] MEDS: GABAPENTIN 100 MG CAPSULE PO ×2 (08:26→12:28)
[2023-05-02] MEDS: PANTOPRAZOLE 40 MG TABLET PO (08:26)
[2023-05-02] MEDS: BETAMETHASONE/CLOTRIMAZOLE CR 45 GM TUBE 1 APPLIC TOPICAL (08:27)
[2023-05-02] MEDS: APIXABAN 5 MG TABLET 10 MG PO (08:29)
--- NOTE | 2023-05-02 10:39 | PM.DS ---
DS: Admitting Diagnosis Discharge Date May 02, 2023 Admitting Diagnosis Cellulitis DVT DS: Discharge Diagnosis Discharge Diagnosis (1) Cellulitis: Qualifiers: Laterality: right Site of cellulitis: extremity Site of cellulitis of extremity: lower extremity Qualified Code(s): L03.115 - Cellulitis of right lower limb Code(s): L03.90 - Cellulitis, unspecified Status: Acute Assessment and Plan: admit to regular medical floor was given vancomycin in the emergency room cultures in progress (2) DVT (deep venous thrombosis): Qualifiers: Affected thrombotic vein of extremity: femoral Chronicity: acute DVT location: lower extremity Laterality: left Qualified Code(s): I82.412 - Acute embolism and thrombosis of left femoral vein Code(s): I82.409 - Acute embolism and thrombosis of unspecified deep veins of unspecified lower extremity Status: Acute Assessment and Plan: eliquis (3) UTI (urinary tract infection): Code(s): N39.0 - Urinary tract infection, site not specified Status: Acute Assessment and Plan: will start Unasyn (4) CKD (chronic kidney disease), stage III: Code(s): N18.30 - Chronic kidney disease, stage 3 unspecified Status: Acute Assessment and Plan: BUN and creatinine at patient's baseline continue metolazone (5) Afib: Qualifiers: Atrial fibrillation type: paroxysmal Qualified Code(s): I48.0 - Paroxysmal atrial fibrillation Code(s): I48.91 - Unspecified atrial fibrillation Status: Acute Assessment and Plan: rate controlled (6) RLS (restless legs syndrome): Code(s): G25.81 - Restless legs syndrome Status: Acute Assessment and Plan: continue ropinirole (7) Unsteady gait: Code(s): R26.81 - Unsteadiness on feet Status: Acute Assessment and Plan: PT OT consult (8) Leg ulcer, left: Code(s): L97.929 - Non-pressure chronic ulcer of unspecified part of left lower leg with unspecified severity Status: Acute Assessment and Plan: Wound ET consult DS: Summary Hospital Course Hospital Course: Patient is an 87-year-old lady from assisted living facility. She came in with cellulitis of lower extremities. She also some mild edema which is worse than her baseline. Ultrasound did show left femoral vein nonocclusive DVT. Eliquis was started. This will be continued on discharge. Otherwise patient will be sent home on clindamycin for 7 more days. Cellulitis has improved. She will be sent back to assisted living and have therapy at the facility. Time Spent with Patient Time attestation: Total time spent providing and/or coordinating discharge services: Exam Narrative: patient is laying in bed Const: General: comfortable, no acute distress, well developed, alert, awake and average body habitus Nutritional Appearance: average body habitus Orientation/consciousness: patient oriented x3 HENMT: Head: normal to inspection, normocephalic and atraumatic Ears: hearing grossly normal bilaterally Face/Nose/Sinus: normal facial exam Face and sinus: normal facial exam Eyes: General: appearance normal, both eyes and all related structures Pupils: Equal, round and reactive pupils present EOM: EOMs intact bilaterally Neck: Neck: full ROM, no lymphadenopathy and no JVD Thyroid: thyroid normal Lymphatic: no lymphadenopathy noted Resp: Effort & Inspection: normal respiratory effort and able to speak in complete sentences Auscultation: clear to auscultation bilaterally Cardio: Jugular venous distension: no JVD Rate: regular rate Rhythm: regular rhythm Heart sounds: S1 normal heart sound present and S2 normal heart sound present : General: Yes deferred Skin: General skin exam: rashes and wounds noted ( ankle) Rashes: rashes noted Wounds: wounds noted ( ankle) Other: erythema Neuro: General: patie
[2023-05-02 13:55] LABS: SARS-CoV-2 RNA PCR Negative (Negative)
== END 2023-05-02 15:51 ==
LOC: ANHED 15:01 → ANH3MED 04-30 10:26 → ANH3MEDSUR 05-04 12:55
PROVIDERS: Admitting Provider Internal Medicine; Emergency Provider Physician Assistant; PCP Family Medicine; Visit Provider Chiropractor
DX: L03.115 Cellulitis of right lower limb (principal); I82.412 Acute embolism and thrombosis of left femoral vein; N39.0 Urinary tract infection, site not specified; G93.89 Other specified disorders of brain; M47.812 Spondylosis without myelopathy or radiculopathy, cervical region; J81.1 Chronic pulmonary edema; I48.0 Paroxysmal atrial fibrillation; G25.81 Restless legs syndrome; W06.XXXA Fall from bed, initial encounter; Z20.822 Contact with and (suspected) exposure to COVID-19; R29.6 Repeated falls; I12.9 Hypertensive chronic kidney disease with stage 1 through stage 4 chronic kidney disease, or unspecified chronic kidney disease; N18.30 Chronic kidney disease, stage 3 unspecified; R06.02 Shortness of breath; L97.329 Non-pressure chronic ulcer of left ankle with unspecified severity; L53.9 Erythematous condition, unspecified; M47.814 Spondylosis without myelopathy or radiculopathy, thoracic region; M47.815 Spondylosis without myelopathy or radiculopathy, thoracolumbar region; R90.82 White matter disease, unspecified; S22.071A Stable burst fracture of T9-T10 vertebra, initial encounter for closed fracture; S22.39XA Fracture of one rib, unspecified side, initial encounter for closed fracture; S32.021A Stable burst fracture of second lumbar vertebra, initial encounter for closed fracture; E78.5 Hyperlipidemia, unspecified; K59.00 Constipation, unspecified; R94.31 Abnormal electrocardiogram [ECG] [EKG]; E03.9 Hypothyroidism, unspecified; F32.9 Major depressive disorder, single episode, unspecified; R26.81 Unsteadiness on feet; R53.83 Other fatigue; E66.9 Obesity, unspecified; Z68.34 Body mass index [BMI] 34.0-34.9, adult; G89.4 Chronic pain syndrome; I73.9 Peripheral vascular disease, unspecified; R06.01 Orthopnea; F10.90 Alcohol use, unspecified, uncomplicated; Z87.891 Personal history of nicotine dependence; Z86.718 Personal history of other venous thrombosis and embolism; Z79.82 Long term (current) use of aspirin; Z79.51 Long term (current) use of inhaled steroids; Z79.891 Long term (current) use of opiate analgesic; Z82.49 Family history of ischemic heart disease and other diseases of the circulatory system
CPT/HCPCS: 36415; 70450; 71045; 71275; 72125; 72128; 72131; 73521; 80048; 80053; 81001; 82565; 83605; 83880; 84484; 85025; 85610; 85652; 85730; 86140; 87040; 87086; 87088; 87635; 93005; 93970; 96365; 96366; 96367; 96372; 96376; 99285; A9270; G0378; J1650; J1956; J3370; Q9967

== ENCOUNTER 2023-08-04 08:18 | Inpatient (IN) | payer MEDICARE, SELFPAY ==
[2023-08-04] VITALS (12 sets, daily range): BP systolic 150–182; BP diastolic 54–93; PULSE 60–88; RESP 13–20; TEMP 36.9–38; O2SAT 93–100; BMI 36.0
--- NOTE | ~2023-08-04 | XR_ITS ---
EXAMINATION: XR chest 1V portable DATE: 08/04/2023 09:48 INDICATION: Infection. TECHNIQUE: A single frontal view of the chest was obtained. COMPARISON: Chest single view 04/29/2023, chest CT 04/29/2023 FINDINGS: The patient is rotated to her left. There is a diffuse interstitial pattern, consistent wit h mild pulmonary edema. No pleural effusion or pneumothorax. Cardiomegaly is noted. An electronic imp lant overlies the heart. There is a closure device in left atrial appendage. There are surgical clips from left hemithyroidectomy. There are changes of vertebroplasty at multiple levels. IMPRESSION: 1. Mild pulmonary edema. 2. Cardiomegaly. Reviewed, dictated and finalized at location A. R TECHNICIAN
--- NOTE | ~2023-08-04 | US_ITS ---
EXAMINATION: US venous doppler [facility] DATE: 08/04/2023 15:07 INDICATION: Lower limb swelling and severe pain TECHNIQUE: Rangel scale images without and with compression and Doppler images of the bilateral lower e xtremity veins were obtained. COMPARISON: 04/29/2023 FINDINGS: The right common femoral vein, profunda femoral vein, femoral vein, and greater saphenous vein are pa tent. The popliteal vein, peroneal trunk, posterior tibial veins are not evaluated due to severe pain . 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 The left common femoral vein, profunda femoral vein, and greater saphenous vein are patent. The popliteal vein, peroneal trunk, posterior ti bial veins are not evaluated due to severe pain. IMPRESSION: 1. 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 Overall limited evaluation of the lower extre mity veins due to severe pain. These findings were discussed with the emergency Department at 1519 hours on 08/04/2023. Reviewed, dictated and finalized at location L. FOOD DELIVERY DRIVER IMPRESSION: 1. 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 Overall limited evaluat ion of the lower extremity veins due to severe pain. These findings were discussed with the emergency Department at 1519 hours on .
--- NOTE | ~2023-08-04 | CT_ITS ---
EXAMINATION: CT brain wo con INDICATION: New onset altered mental status COMPARISON: None TECHNIQUE: Standard unenhanced head CT. The dose-length product (DLP) was 908.00 mGy-cm. The mA was a djusted according to patient size. Iterative reconstruction technique was employed. FINDINGS: No acute intraparenchymal hemorrhage. No evidence of acute infarction. There is chronic enc ephalomalacia in the right frontoparietal region. There is an adjacent craniotomy defect with a chron ic, stable calcified area dural thickening measuring 7 mm in thickness. There is mild periventricular and subcortical hypodensity probably related to small vessel ischemic disease. There is mild promine nce of the sulci and ventricles related to cerebral atrophy. Intracranial calcified cerebral atherosc lerosis is noted. No mass effect or midline shift. Changes in the globes are likely from ocular lens surgery. The visualized sinuses and mastoid air cells are well aerated. IMPRESSION: 1. No acute intracranial abnormality. 2. Chronic encephalomalacia in the right frontoparietal region with adjacent craniotomy defect. 3. Chronic, stable area of calcified dural thickening, consistent with postoperative change versus me ningioma. 4. Age related findings. Reviewed, dictated and finalized at location L. ATION ANALYST IMPRESSION: 1. No acute intracranial abnormality. 2. Chronic encephalomalacia in the right frontoparietal region with adjacent cr aniotomy defect. 3. Chronic, stable area of calcified dural thickening, consistent with postoper ative change versus meningioma. 4. Age related findings.
--- NOTE | 2023-08-04 08:25 | ECG_ITS ---
Measurements Intervals [place] Rate: 64 P: 41 SC: 271 QRS: 16 QRSD: 121 T: 40 QT: 391 QTc: 406 Interpretive Statements SINUS RHYTHM WITH FIRST DEGREE AV BLOCK PROBABLE LATERAL MYOCARDIAL INFARCTION , PROBABLY OLD [35 ms Q WAVE IN I/aVL/V5/V6] ABNORMAL ECG COMPARED TO ECG 04/29/2023 13:49:20 SINUS RHYTHM NOW PRESENT FIRST DEGREE AV BLOCK NOW PRESENT Electronically Signed On 08-04-2023 17:00:15 PATIENT INFORMATION COORDINATOR by Jeovany Skinner M.D.
--- NOTE | 2023-08-04 09:08 | ED.AMS ---
HPI - Altered Mental Status General Chief Complaint: Altered Mental Status Stated Complaint: AMS Time Seen by Provider: 08/04/23 08:41 History of Present Illness HPI narrative: Patient is an 87-year-old female who presents to the emergency department this morning from her extended care facility due to concern for altered mental status. EMS report states that the patient is normally alert and oriented x3, however, this morning her extended care facility noted that she was only alert and oriented x1 which is unlike her baseline. During my assessment, patient appears to be alert and oriented to person, place, and time. Patient denies any chest pain, shortness of breath, nausea, vomiting, abdominal pain, dysuria, hematuria, constipation, diarrhea, melena, hematochezia, fevers or chills. Patient also denies any headaches, dizziness, lightheadedness, blurry visions, focal weakness, numbness and or tingling. There are no other modifying, alleviating, or precipitating factors at this time. Related Data Home Medications Medication Instructions Recorded Confirmed aspirin 325 mg tablet 325 mg PO DAILY 08/06/19 06/09/23 gabapentin 100 mg capsule 100 mg PO TID 08/13/21 06/09/23 albuterol sulfate 90 mcg/actuation 2 inh inhalation Q4H PRN Shortness 04/28/23 06/09/23 aerosol inhaler Of Breath ropinirole 4 mg tablet 4 mg PO BID 04/28/23 06/09/23 metolazone 5 mg tablet 5 mg PO DAILY 04/29/23 06/09/23 polyethylene glycol 3350 17 gram 17 g PO BID 04/29/23 06/09/23 oral powder packet (Miralax) senna-docusate sodium capsule 1 cap PO BID PRN cosntipation 04/29/23 06/09/23 Allergies Allergy/AdvReac Type Severity Reaction Status Date / Time Penicillins Allergy Severe Hives Verified 06/09/23 11:24 Sulfa (Sulfonamide Allergy Intermediate hives Verified 06/09/23 11:24 Antibiotics) morphine AdvReac Intermediate Hallucinati Verified 06/09/23 11:24 ng bumetanide AdvReac Nausea Verified 06/09/23 11:24 Review of Systems Review of Systems: All systems are reviewed and are negative unless stated otherwise in the HPI. [facility] Past Medical History Medical History Afib patient had wactchman placed for a. fib approximately 2 yrs ago Choking Chronic a-fib Chronic pain disorder CKD (chronic kidney disease), stage III Essential (primary) hypertension Fatigue Fracture of knee prosthesis History of blood transfusion History of brain tumor History of DVT (deep vein thrombosis) HLD (hyperlipidemia) Hoarseness of voice HTN (hypertension) Hypertension Hypothyroidism (acquired) Hypothyroidism, unspecified Lumbar spondylosis Major depressive disorder, single episode, unspecified Minor head injury without loss of consciousness Numbness and tingling in left hand Obesity Other fracture of right femur, initial encounter for closed fracture PAD (peripheral artery disease) Unspecified injury of head, sequela Surgical History Surgical History Brain tumor (benign) excised H/O thyroidectomy History of appendectomy History of back surgery History of hip replacement History of knee replacement Hx of right inguinal hernia repair 06/11/22 Hx of tonsillectomy Family History Family History Sibling Family history of multiple sclerosis, Onset Age: 43 Father Acute myocardial infarction Mother , age 60 Heart disease Acute myocardial infarction Social History Social History Smoking packs per day: 0.25 Smoking cigarettes per day: 5.0 Years smoked: 15 Smoking pack-years: 3.75 Smoking status: Former smoker Second hand tobacco smoke exposure: No Additional smoking assessment comments: UNABLE TO RECALL SMOKING DETAILS - QUIT LATE Alcohol intake: current Alcohol use details: STATES
[2023-08-04 09:26] LABS: Basophils Percent Auto 0.6 % (0.2-1.2); Eosinophils Absolute Auto 0.1 K/mm3 (0-0.3); Eosinophils Percent Auto 1.5 % (0-4.4); Hematocrit 42.6 % (37.0-47.0); Hemoglobin 12.9 g/dL (12.0-15.0); Lymphocytes Absolute Auto 0.48 K/mm3 (0.9-3.2); Lymphocytes Percent Auto 14.2 % (18.3-44.2); Mean Corpuscular HGB Conc 30.3 g/dl (32-36); Mean Corpuscular Hemoglobin 30.1 pg (26-34); Mean Corpuscular Volume 99.5 fl (80-100); Monocytes Absolute Auto 0.5 K/mm3 (0.1-0.6); Monocytes Percent Auto 14.5 % (2.6-8.5); Neutrophils Absolute Auto 2.3 K/mm3 (1.3-6.7); Neutrophils Percent Auto 69.2 % (45.5-73.1); Platelet Count Result 167 k/mm3 (150-375); Red Blood Count 4.28 M/mm3 (4.2-5.4); Red Cell Distribution Width 14.5 % (11.5-14.5); White Blood Count 3.4 K/mm3 (4.5-10.0)
[2023-08-04 09:38] LABS: Alanine Aminotransferase 16 U/L (6-35); Albumin Level 4.1 g/dL (3.5-5.1); Alkaline Phosphatase 156 U/L (38-126); Anion Gap 7 mmol/L (8-16); Aspartate Amino Transferase 29 U/L (14-36); Bilirubin,Total 1.1 mg/dL (0.2-1.3); Blood Urea Nitrogen 16 mg/dL (7-17); Calcium 9.4 mg/dL (8.4-10.2); Carbon Dioxide 26 mmol/L (22-30); Chloride 106 mmol/L (98-107); Estimated CRCL calculation 83 ml/min; Estimated Glomerular Filt Rate > 60; Glucose 108 mg/dL (65-110); Potassium 4.5 mmol/L (3.4-5.0); Sodium 139 mmol/L (137-145)
[2023-08-04 09:55] LABS: Appearance Urine Clear (Clear); Bacteria Urine None Seen /hpf; Bilirubin Urine Negative (Negative); Blood Urine Trace (Negative); Color Urine Dark Yellow (Yellow); Glucose Urine UA Negative (Negative); Ketones Urine Negative (Negative); Leukocyte Esterase Ur Negative LEU/UL (Negative); Nitrate Urine Negative (Negative); Non Pathogenic Casts 0-2; Protein Urine 2+ mg/dL (Negative); RBC Urine 0-2 /hpf (0-2); Specific Grav Ur 1.017 (1.001-1.035); Squamous Epithelial Cell Urine None seen /hpf (Few); Urobilinogen Urine 0.2 mg/dL (<2.0); WBC Urine 0-5 /hpf
[2023-08-04 10:00] LABS: Add Urine Microscopic? YES
[2023-08-04 10:02] LABS: Influenza A QL RT-PCR Negative (Negative); Influenza B QL RT-PCR Negative (Negative); SARS-CoV-2 RNA PCR Negative (Negative)
[2023-08-04 10:05] LABS: INR 1.6; Prothrombin Time 19.9 Seconds (11.1-14.7)
[2023-08-04 10:06] LABS: Partial Thromboplastin Time 37.4 SECONDS (22.3-36.8)
--- NOTE | 2023-08-04 11:36 | PC.NURSE ---
Pt daughter at bedside, requesting to speak with the doctor. made aware.
--- NOTE | 2023-08-04 12:05 | PC.NURSE ---
MD at bedside, educating family.
[2023-08-04 13:51] LABS: NT Pro B Type Natriuretic Pept 1740 pg/mL (19.9-100)
--- NOTE | 2023-08-04 14:47 | PM.IMHP ---
H&P: HPI History of Present Illness Date/Time: 08/04/23 14:47 Chief Complaint: AMS Narrative: 87 y/o F presents here with AMS with PMH of AFib, CKD, HTN, brain tumor s/p resection, DVT, HLD, hypothyroidism (acquired), MDD, obesity, pulmonary hypertension, and PAD. Patient had fall on 07/02 where she stood, lost her balance, and struck face against the cross bar of her walker. She was evaluated at [facility] and found to have a left ruptured globe with a mildly displaced left medial and inferior orbital wall fracture without entrapment. Surgical repair of ruptured globe and eyelid lac on 07/02. Also found to be newly bradycardic with subsequent pacemaker placement on 07/09 with discontinuation anticoagulation. Concurrent UTI and severe delirium during hospital course. Patient was discharged on 07/14 to rehab for strengthening post-deconditioning for approximately 10-14 days, daughter believes she was discharged around 07/27 back to [facility]. Currently living in the independent living section. Per daughter who provided majority of history, she had returned to baseline after discharge from rehab with some trace weakness and was no longer experiencing delirium or hallucinations. On Thursday, 08/01, patient began to experience hallucinations, altered mental status, and intermittent insomnia. Continue to experience the same symptoms through the rest of the weekend. Today (08/04), staff at [facility] noted patient to be A/Ox1. She is normally A/Ox4 with only transient and mild confusion per daughter. She also had an episode of weakness overnight where she slid off the bed and her [id number] had to assist her to the floor because she was unable to help her stand up - did not sustain any trauma or loss of consciousness. Daughter reports no difficulty with ambulation that they observed yesterday. Does note that the patient's BLE appear more swollen than they were prior to the weekend. Patient is currently somnolent and orientated to self only. Briefly awakens to painful stimuli. Not currently ambulatory. Only showing discomfort with palpation over sternum and BLE. Review of Systems Review of Systems: limited. see HPI for positives discovered through interview with patient's daughter. ROS unobtainable: Yes unobtainable due to mental status PMFSH Past Medical History Medical History (Updated 08/04/23 @ 18:28 by Barbie Hopkins APRN) Afib patient had wactchman placed for a. fib approximately 2 yrs ago Choking Chronic a-fib Chronic pain disorder CKD (chronic kidney disease), stage III Essential (primary) hypertension Fatigue Fracture of knee prosthesis History of blood transfusion History of brain tumor History of DVT (deep vein thrombosis) HLD (hyperlipidemia) Hoarseness of voice HTN (hypertension) Hypertension Hypothyroidism (acquired) Hypothyroidism, unspecified Lumbar spondylosis Major depressive disorder, single episode, unspecified Minor head injury without loss of consciousness Numbness and tingling in left hand Obesity Other fracture of right femur, initial encounter for closed fracture PAD (peripheral artery disease) Unspecified injury of head, sequela Surgical History Surgical History (Updated 08/04/23 @ 18:15 by Barbie Hopkins APRN) Brain tumor (benign) excised H/O thyroidectomy History of appendectomy History of back surgery History of hip replacement History of knee replacement History of repair of ruptured globe Hx of right inguinal hernia repair 06/11/22 Hx of tonsillectomy Family History Family History Sibling Family history of multiple sclerosis, Onset Age: 43 Father Acute myocardial infarction Mother , age 60 Heart disease Acute myocardial infarction Social History Social History Smoking packs per day: 0.25 Smoking cigarettes per
[2023-08-04 16:48] LABS: CRP 2.5 mg/dL (<1.0)
--- NOTE | 2023-08-04 16:55 | ADMGEN ---
This patient, Zohreh Oakes, was admitted to Virtual Bed 3rd Floor-1. Patient/family oriented to hospital policies and general routines including ID bracelet, bed and alarms, visiting hours, pain management, procedures, bathroom and other care routines, personal items, smoking policy, room service/diet, and visiting hours. Information on how to activate the Rapid Response Team has been discussed. Patient/Family are encouraged to report perceived risks to care and to ask questions if they do not understand what they are told or what they should do.
[2023-08-04 17:10] LABS: Erythrocyte Sedimentation Rate 49 mm/hr (0-20)
[2023-08-04 17:58] LABS: Acetaminophen < 10 ug/mL (10-30); Ammonia < 9 umol/L (9-30); Salicylate < 1.0 mg/dL (2-20)
[2023-08-04] MEDS: CEFEPIME 2 GM/NS 50 ML 2 GM/50 ML BAG IVPB (18:09)
--- NOTE | 2023-08-04 18:25 | PC.NURSE ---
[facility] at [facility], notified per telephone of patients admission and requested current medication list. Fax number provided.
[2023-08-04] MEDS: VANCOMYCIN 1,250 MG/NS 250 ML 1,250 MG/250 ML BAG 166.67 MG IVPB ×2 (18:55→20:29)
[2023-08-04 19:01] LABS: Procalcitonin 0.1 ng/mL
[2023-08-04 19:07] LABS: Folic Acid > 20.0 ng/mL (2.76->20)
[2023-08-04 19:31] LABS: Troponin I 0.018 ng/mL (0.000-0.034)
[2023-08-04 21:03] LABS: Troponin I 0.018 ng/mL (0.000-0.034)
[2023-08-04] MEDS: HEPARIN SODIUM 5,000 UNITS/ML VIAL 5000 UNITS SUB-Q (21:32)
[2023-08-05] MEDS: ATORVASTATIN 10 MG TABLET PO ×2 (00:56→20:28)
[2023-08-05] MEDS: ACETAMINOPHEN 500 MG TABLET 1000 MG PO ×2 (00:56→06:56)
[2023-08-05] MEDS: FUROSEMIDE INJ 40 MG/4 ML VIAL IV PUSH (00:56)
[2023-08-05] MEDS: LEVOTHYROXINE SODIUM 88 MCG TABLET PO (04:55)
[2023-08-05 06:00] VITALS: BP 135/64; PULSE 78; RESP 18; TEMP 36.6; O2SAT 93
[2023-08-05] MEDS: rOPINIRole HCL 1 MG TABLET 4 MG PO ×2 (06:55→16:45)
[2023-08-05 07:18] LABS: Basophils Percent Auto 0.4 % (0.2-1.2); Eosinophils Percent Auto 0.2 % (0-4.4); Hemoglobin 10.7 g/dL (12.0-15.0); Immature Granulocyte Absolute 0.02 K/mm3 (0.00-0.031); Immature Granulocyte Percent A 0.4 % (0-0.5); Lymphocytes Absolute Auto 0.32 K/mm3 (0.9-3.2); Lymphocytes Percent Auto 6.3 % (18.3-44.2); Mean Corpuscular HGB Conc 30.6 g/dl (32-36); Mean Corpuscular Hemoglobin 30.4 pg (26-34); Mean Corpuscular Volume 99.4 fl (80-100); Mean Platelet Volume 10.1 fl (7.4-10.4); Monocytes Absolute Auto 0.5 K/mm3 (0.1-0.6); Monocytes Percent Auto 10.2 % (2.6-8.5); Neutrophils Absolute Auto 4.2 K/mm3 (1.3-6.7); Neutrophils Percent Auto 82.5 % (45.5-73.1); Platelet Count Result 143 k/mm3 (150-375); Red Blood Count 3.52 M/mm3 (4.2-5.4); Red Cell Distribution Width 14.6 % (11.5-14.5); White Blood Count 5.1 K/mm3 (4.5-10.0)
[2023-08-05 07:28] LABS: Alanine Aminotransferase 13 U/L (6-35); Albumin Level 3.6 g/dL (3.5-5.1); Alkaline Phosphatase 139 U/L (38-126); Anion Gap 8 mmol/L (8-16); Aspartate Amino Transferase 29 U/L (14-36); Bilirubin,Total 1.5 mg/dL (0.2-1.3); Blood Urea Nitrogen 13 mg/dL (7-17); Carbon Dioxide 23 mmol/L (22-30); Chloride 104 mmol/L (98-107); Estimated CRCL calculation 77 ml/min; Estimated Glomerular Filt Rate > 60; Glucose 111 mg/dL (65-110); Potassium 4.1 mmol/L (3.4-5.0); Sodium 135 mmol/L (137-145)
[2023-08-05] MEDS: VANCOMYCIN 1,500 MG/NS 500 ML 1,500 MG/500 ML BAG 250 MG IVPB ×2 (08:17→18:31)
[2023-08-05] MEDS: metOLazone 5 MG TABLET PO (09:51)
[2023-08-05] MEDS: PANTOPRAZOLE 40 MG TABLET PO (09:51)
[2023-08-05] MEDS: ASPIRIN 325 MG TABLET PO (09:51)
[2023-08-05] MEDS: ASCORBIC ACID 500 MG TABLET PO (09:51)
[2023-08-05] MEDS: FUROSEMIDE 40 MG TABLET PO (09:51)
[2023-08-05] MEDS: VENLAFAXINE HCL XR 75 MG CAP.ER.24H 150 MG PO (09:51)
[2023-08-05] MEDS: THERAPEUTIC MULTIVITAMINS/MINERALS TAB (*BKC) 1 TABLET PO (09:51)
[2023-08-05] MEDS: POTASSIUM CHLORIDE 20 MEQ PACKET (FOR LIQUID) PO (09:57)
[2023-08-05] MEDS: HEPARIN SODIUM 5,000 UNITS/ML VIAL 5000 UNITS SUB-Q ×2 (09:57→20:28)
--- NOTE | 2023-08-05 10:28 | PM.IMPN ---
Progress Note: A&P Assessment and Plan (1) Altered mental status: Qualifiers: Altered mental status type: somnolence Qualified Code(s): R40.0 - Somnolence Code(s): R41.82 - Altered mental status, unspecified Status: Acute Assessment and Plan: 08/05/23: Patient currently alert and oriented x3, no neuro deficits. Patient states that she was taking Percocet at home which in the past has made her feel loopy in the past. Thinks that her altered mental status is mainly due to use of this Percocet. It was held on admission. Neurology was consulted for the altered mental, we will touch base with them tomorrow. Head CT was negative (2) Cellulitis: Qualifiers: Laterality: right Site of cellulitis: extremity Site of cellulitis of extremity: lower extremity Qualified Code(s): L03.115 - Cellulitis of right lower limb Code(s): L03.90 - Cellulitis, unspecified Status: Acute Assessment and Plan: 08/05/23: Bilateral lower extremity edema and erythema Patient currently on vancomycin and cefepime (3) DVT (deep venous thrombosis): Qualifiers: Affected thrombotic vein of extremity: femoral Chronicity: chronic DVT location: lower extremity Laterality: left Qualified Code(s): I82.512 - Chronic embolism and thrombosis of left femoral vein Code(s): I82.409 - Acute embolism and thrombosis of unspecified deep veins of unspecified lower extremity Status: Acute Assessment and Plan: 08/04/23: US of BLE - chronic partial thrombosis of the left femoral vein. Overall limited evaluation of the lower extremity veins due to severe pain. 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 Start on heparin SQ 5000 U BID, hold off on further tx until more results available. 08/05/23: Patient is currently on heparin 5000 units BID for DVT prophylaxis. Blood thinners held due to AMS Patient now alert and oriented x3 Will touch base with neurology tomorrow about adding Eliquis or Xaralto for DVT (4) CHF (congestive heart failure): Qualifiers: Heart failure chronicity: acute on chronic Heart failure type: unspecified Qualified Code(s): I50.9 - Heart failure, unspecified Code(s): I50.9 - Heart failure, unspecified Status: Acute Assessment and Plan: 08/05/23: Continue home meds (5) CKD (chronic kidney disease), stage III: Qualifiers: Chronic kidney disease stage 3 subtype: stage 3a (GFR 45-59) Qualified Code(s): N18.31 - Chronic kidney disease, stage 3a Code(s): N18.30 - Chronic kidney disease, stage 3 unspecified Status: Acute Assessment and Plan: 08/04/23: 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 Baseline is 0.7 - 1.1 in the last year. GFR currently >60, previously >60 - 47 in the last year. monitor. 08/05/23: BUN 13, creatinine 0.5 Will continue to monitor labs (6) Hypothyroidism (acquired): Code(s): E03.9 - Hypothyroidism, unspecified Status: Acute Assessment and Plan: 08/04/23: Last TSH 1.4 on 11/20/22. TSH w/reflex ordered. continue Synthroid in interim. 08/05/23: Change to current treatment (7) Blind left eye: Qualifiers: Right eye visual impairment category: right - unspecified impairment Qualified Code(s): H54.40 - Blindness, one eye, unspecified eye Code(s): H54.40 - Blindness, one eye, unspecified eye Status: Acute Assessment and Plan: 08/04/23: Fall with subsequent globe rupture and orbital fracture on 07/02 with surgical repair of globe rupture on same day at [place]. Now blind in left eye, history of macular degeneration bilaterally prior to injury. 08/05/23: Left eye covered with a protective eye patch. [place] ordered for pain control. Patient states that she has pretty intense headaches with this global rupture of her left eye. No change to current treatment plan Time Spent
[2023-08-05] MEDS: HYDROcodone/acetaminophen (*CRX) 10-325 MG TABLET 1 TAB PO ×3 (10:59→20:28)
[2023-08-05] MEDS: CEFEPIME 2 GM/NS 50 ML 2 GM/50 ML BAG IVPB ×2 (12:02→22:00)
--- NOTE | 2023-08-05 12:55 | WPDNEURCNPN ---
Assessment and Plan Assessment and plan (1) Blind left eye: Qualifiers: Right eye visual impairment category: right - unspecified impairment Qualified Code(s): H54.40 - Blindness, one eye, unspecified eye Code(s): H54.40 - Blindness, one eye, unspecified eye Status: Acute (2) Altered mental status: Qualifiers: Altered mental status type: somnolence Qualified Code(s): R40.0 - Somnolence Code(s): R41.82 - Altered mental status, unspecified Status: Acute (3) Memory problem: Code(s): R41.3 - Other amnesia Status: Acute (4) Afib: Qualifiers: Atrial fibrillation type: paroxysmal Qualified Code(s): I48.0 - Paroxysmal atrial fibrillation Code(s): I48.91 - Unspecified atrial fibrillation Status: Acute (5) Seizure: Code(s): R56.9 - Unspecified convulsions Status: Acute Plan recurrent falls with history as outlined above particularly the recent trauma to her eyes multiple medication have been used and the readjustment is being made no further neurological intervention at this stage is necessary she had a CT scan of the head in the emergency room which documented chronic encephalomalacia in the right frontoparietal region with adjacent craniotomy defect she has a likely candidate to have the focal seizure Consult date: 08/05/23 HPI: Zohreh Oakes is a 87 year old female Admitted to the hospital through the emergency room on transfer from the [facility] because of the change in the mental status usually patient is alert oriented x3 but on the morning of transfer she was oriented only x1 though by the time she was seen in the ER she was alert oriented to person place and time and was not complaining of any specific pain in chest and hide no difficulties in breathing also she complained of no headaches . Patient had been receiving aspirin 325mg daily, gabapentin 100mg 3 times a day, ropinirole 4mg twice a day, and metolazone seen 5mg daily. She is reportedly allergic to multiple medications as outlined and in the past she has ongoing history of atrial fibrillation for which she has Watchman placed approximately 2 years ago in addition she has chronic pain disorder, hypertension, hypothyroidism, major depressive disorder and chronic back as well she has undergone multiple surgeries, she is a former smoker 3.75 smoking pack years and currently alcohol intake or but only twice a month in the emergency room her exam was generally stable vital signs were normal except blood pressure 169/70 EKG revealed no atrial fibrillation CBC was normal WBC is only 3.4 BMP was normal and all the screening for the viral infections negative, she had a CT scan of the head which revealed only chronic encephalomalacia in the right frontoparietal region with adjacent craniotomy defect and stable area of calcified dural thickening consistent with the postoperative changes versus meningioma, venous Doppler studies documented chronic partial thrombosis of left femoral vein and chest x-ray with mild cardiomegaly patient is receiving aspirin 325mg daily with atorvastatin 10mg at night in addition to gabapentin hydrocodone. In the past patient has been evaluated at the [facility] as well for the history of fall on 07/02 which resulted in left ruptured eye globe with complete loss of vision that time she was found to have new bradycardia and a pacemaker was placed in and anticoagulation was discontinued her lower extremities are more swollen and she is somewhat more somnolent as per the daughter Review of Systems Review of Systems: All systems reviewed & are unremarkable except as noted in HPI and below PMFSH Past Medical History Medical History (Updated 08/05/23 @ 13:08 by Hank Mclean MD) Afib patient had wactchman placed for a. fib approximately 2 yrs ago Choking Chronic a-fib Chronic pain disorder CKD (chronic kidney disease), stage III Essential (primary) hyp
[2023-08-05 14:00] VITALS: BP 130/57; PULSE 68; RESP 24; TEMP 37.1; O2SAT 93
[2023-08-05 21:40] VITALS: BP 139/69; PULSE 64; RESP 20; TEMP 36.1; O2SAT 95
[2023-08-06 06:00] VITALS: BP 178/72; PULSE 70; RESP 20; TEMP 36.5; O2SAT 94
[2023-08-06] MEDS: LEVOTHYROXINE SODIUM 88 MCG TABLET PO (06:04)
[2023-08-06 06:56] LABS: Basophils Percent Auto 0.9 % (0.2-1.2); Eosinophils Absolute Auto 0.1 K/mm3 (0-0.3); Hematocrit 36.8 % (37.0-47.0); Immature Granulocyte Absolute 0.01 K/mm3 (0.00-0.031); Immature Granulocyte Percent A 0.4 % (0-0.5); Lymphocytes Absolute Auto 0.42 K/mm3 (0.9-3.2); Lymphocytes Percent Auto 18.6 % (18.3-44.2); Mean Corpuscular HGB Conc 29.9 g/dl (32-36); Mean Corpuscular Hemoglobin 30.2 pg (26-34); Mean Corpuscular Volume 101.1 fl (80-100); Monocytes Absolute Auto 0.3 K/mm3 (0.1-0.6); Monocytes Percent Auto 14.6 % (2.6-8.5); Neutrophils Absolute Auto 1.4 K/mm3 (1.3-6.7); Neutrophils Percent Auto 61.5 % (45.5-73.1); Platelet Count Result 129 k/mm3 (150-375); Red Blood Count 3.64 M/mm3 (4.2-5.4); Red Cell Distribution Width 14.6 % (11.5-14.5); White Blood Count 2.3 K/mm3 (4.5-10.0)
[2023-08-06 07:06] LABS: Alanine Aminotransferase 15 U/L (6-35); Albumin Level 3.7 g/dL (3.5-5.1); Alkaline Phosphatase 140 U/L (38-126); Anion Gap 6 mmol/L (8-16); Aspartate Amino Transferase 34 U/L (14-36); Bilirubin,Total 1.1 mg/dL (0.2-1.3); Blood Urea Nitrogen 15 mg/dL (7-17); Calcium 8.8 mg/dL (8.4-10.2); Carbon Dioxide 27 mmol/L (22-30); Chloride 104 mmol/L (98-107); Estimated CRCL calculation 57 ml/min; Estimated Glomerular Filt Rate > 60; Glucose 87 mg/dL (65-110); Potassium 3.9 mmol/L (3.4-5.0); Sodium 137 mmol/L (137-145)
[2023-08-06 07:18] LABS: Vancomycin Trough 21.7 ug/mL (10.0-20.0)
[2023-08-06] MEDS: PANTOPRAZOLE 40 MG TABLET PO (08:09)
[2023-08-06] MEDS: FUROSEMIDE 40 MG TABLET PO (08:09)
[2023-08-06] MEDS: rOPINIRole HCL 1 MG TABLET 4 MG PO ×2 (08:10→16:41)
[2023-08-06] MEDS: ASPIRIN 325 MG TABLET PO (08:10)
[2023-08-06] MEDS: VENLAFAXINE HCL XR 75 MG CAP.ER.24H 150 MG PO (08:10)
[2023-08-06] MEDS: ASCORBIC ACID 500 MG TABLET PO (08:10)
[2023-08-06] MEDS: THERAPEUTIC MULTIVITAMINS/MINERALS TAB (*BKC) 1 TABLET PO (08:10)
[2023-08-06] MEDS: HYDROcodone/acetaminophen (*CRX) 10-325 MG TABLET 1 TAB PO ×3 (08:10→20:38)
[2023-08-06] MEDS: metOLazone 5 MG TABLET PO (08:10)
[2023-08-06] MEDS: POTASSIUM CHLORIDE 20 MEQ PACKET (FOR LIQUID) PO (08:11)
[2023-08-06] MEDS: HEPARIN SODIUM 5,000 UNITS/ML VIAL 5000 UNITS SUB-Q (08:11)
[2023-08-06] MEDS: CEFEPIME 2 GM/NS 50 ML 2 GM/50 ML BAG IVPB (08:21)
--- NOTE | 2023-08-06 09:08 | PM.IMPN ---
Progress Note: A&P Assessment and Plan (1) Altered mental status: Qualifiers: Altered mental status type: somnolence Qualified Code(s): R40.0 - Somnolence Code(s): R41.82 - Altered mental status, unspecified Status: Acute Assessment and Plan: 08/05/23: Patient currently alert and oriented x3, no neuro deficits. Patient states that she was taking Percocet at home which in the past has made her feel loopy in the past. Thinks that her altered mental status is mainly due to use of this Percocet. It was held on admission. Neurology was consulted for the altered mental, we will touch base with them tomorrow. Head CT was negative 08/06/23: Patient more confused this morning. Changed pain medication to PRN dosing. Also changing cefepime and vancomycin to oral doxycycline and cefdinir as the cefepime can contribute to her confusion. Neurology following. on examination today patient is alert to voice and oriented x3, she states she was never confused and was just upset with her nurse this morning. (2) Cellulitis: Qualifiers: Laterality: right Site of cellulitis: extremity Site of cellulitis of extremity: lower extremity Qualified Code(s): L03.115 - Cellulitis of right lower limb Code(s): L03.90 - Cellulitis, unspecified Status: Acute Assessment and Plan: 08/05/23: Bilateral lower extremity edema and erythema Patient currently on vancomycin and cefepime 08/06/23: Changed cefepime and vancomycin to cefdinir and doxycycline oral bilateral lower extremity edema and erythema unchanged from yesterday. (3) DVT (deep venous thrombosis): Qualifiers: Affected thrombotic vein of extremity: femoral Chronicity: chronic DVT location: lower extremity Laterality: left Qualified Code(s): I82.512 - Chronic embolism and thrombosis of left femoral vein Code(s): I82.409 - Acute embolism and thrombosis of unspecified deep veins of unspecified lower extremity Status: Acute Assessment and Plan: 08/04/23: US of BLE - chronic partial thrombosis of the left femoral vein. Overall limited evaluation of the lower extremity veins due to severe pain. 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 Start on heparin SQ 5000 U BID, hold off on further tx until more results available. 08/05/23: Patient is currently on heparin 5000 units BID for DVT prophylaxis. Blood thinners held due to AMS Patient now alert and oriented x3 Will touch base with neurology tomorrow about adding Eliquis or Xaralto for DVT 08/06/23: Switched to therapeutic Lovenox for DVT, will touch base with care coordination for Eliquis or Xarelto pre-authorization. (4) CHF (congestive heart failure): Qualifiers: Heart failure chronicity: acute on chronic Heart failure type: unspecified Qualified Code(s): I50.9 - Heart failure, unspecified Code(s): I50.9 - Heart failure, unspecified Status: Acute Assessment and Plan: 08/05/23: Continue home meds 08/06/23: no change to current treatment plan (5) CKD (chronic kidney disease), stage III: Qualifiers: Chronic kidney disease stage 3 subtype: stage 3a (GFR 45-59) Qualified Code(s): N18.31 - Chronic kidney disease, stage 3a Code(s): N18.30 - Chronic kidney disease, stage 3 unspecified Status: Acute Assessment and Plan: 08/04/23: 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 Baseline is 0.7 - 1.1 in the last year. GFR currently >60, previously >60 - 47 in the last year. monitor. 08/05/23: BUN 13, creatinine 0.5 Will continue to monitor labs 08/06/23: BUN 15, Creatinine 0.70 continue to trend labs. (6) Hypothyroidism (acquired): Code(s): E03.9 - Hypothyroidism, unspecified Status: Acute Assessment and Plan: 08/04/23: Last TSH 1.4 on 11/20/22. TSH w/reflex ordered. continue Synthroid in interim. 08/05/23: No clement
[2023-08-06] MEDS: ENOXAPARIN 100 MG/ML SYRINGE 96 MG SUB-Q ×2 (09:37→20:47)
[2023-08-06 13:56] VITALS: BP 114/76; PULSE 83; RESP 18; TEMP 37.4; O2SAT 95
[2023-08-06] MEDS: CEFDINIR 300 MG CAPSULE PO (20:38)
[2023-08-06] MEDS: levETIRAcetam 500 MG TABLET PO (20:38)
[2023-08-06] MEDS: DOXYCYCLINE HYCLATE 100 MG TABLET PO (20:38)
[2023-08-06] MEDS: ATORVASTATIN 10 MG TABLET PO (20:38)
[2023-08-06 22:00] VITALS: BP 167/77; PULSE 72; RESP 18; TEMP 35.7; O2SAT 91
[2023-08-07] MEDS: LEVOTHYROXINE SODIUM 88 MCG TABLET PO (05:53)
[2023-08-07 06:00] VITALS: BP 167/82; PULSE 74; RESP 16; TEMP 35.8; O2SAT 92
[2023-08-07 07:03] LABS: Basophils Percent Auto 0.8 % (0.2-1.2); Eosinophils Absolute Auto 0.1 K/mm3 (0-0.3); Eosinophils Percent Auto 2.9 % (0-4.4); Hemoglobin 10.9 g/dL (12.0-15.0); Lymphocytes Absolute Auto 0.45 K/mm3 (0.9-3.2); Lymphocytes Percent Auto 18.8 % (18.3-44.2); Mean Corpuscular HGB Conc 31.1 g/dl (32-36); Mean Corpuscular Hemoglobin 30.3 pg (26-34); Mean Corpuscular Volume 97.2 fl (80-100); Mean Platelet Volume 10.1 fl (7.4-10.4); Monocytes Absolute Auto 0.3 K/mm3 (0.1-0.6); Monocytes Percent Auto 14.2 % (2.6-8.5); Neutrophils Absolute Auto 1.5 K/mm3 (1.3-6.7); Neutrophils Percent Auto 63.3 % (45.5-73.1); Platelet Count Result 147 k/mm3 (150-375); Red Cell Distribution Width 14.4 % (11.5-14.5); White Blood Count 2.4 K/mm3 (4.5-10.0)
[2023-08-07 07:16] LABS: Alanine Aminotransferase 15 U/L (6-35); Albumin Level 3.7 g/dL (3.5-5.1); Alkaline Phosphatase 133 U/L (38-126); Anion Gap 5 mmol/L (8-16); Aspartate Amino Transferase 32 U/L (14-36); Bilirubin,Total 0.9 mg/dL (0.2-1.3); Blood Urea Nitrogen 13 mg/dL (7-17); Carbon Dioxide 29 mmol/L (22-30); Chloride 103 mmol/L (98-107); Estimated CRCL calculation 66 ml/min; Estimated Glomerular Filt Rate > 60; Glucose 88 mg/dL (65-110); Potassium 3.9 mmol/L (3.4-5.0); Sodium 137 mmol/L (137-145)
[2023-08-07] MEDS: ASPIRIN 325 MG TABLET PO (08:35)
[2023-08-07] MEDS: levETIRAcetam 500 MG TABLET PO ×2 (08:35→21:02)
[2023-08-07] MEDS: FUROSEMIDE 40 MG TABLET PO (08:35)
[2023-08-07] MEDS: metOLazone 5 MG TABLET PO (08:35)
[2023-08-07] MEDS: DOXYCYCLINE HYCLATE 100 MG TABLET PO ×2 (08:36→21:03)
[2023-08-07] MEDS: VENLAFAXINE HCL XR 75 MG CAP.ER.24H 150 MG PO (08:36)
[2023-08-07] MEDS: THERAPEUTIC MULTIVITAMINS/MINERALS TAB (*BKC) 1 TABLET PO (08:36)
[2023-08-07] MEDS: ASCORBIC ACID 500 MG TABLET PO (08:37)
[2023-08-07] MEDS: CEFDINIR 300 MG CAPSULE PO ×2 (08:37→21:02)
[2023-08-07] MEDS: PANTOPRAZOLE 40 MG TABLET PO (08:37)
[2023-08-07] MEDS: rOPINIRole HCL 1 MG TABLET 4 MG PO ×2 (08:39→16:21)
[2023-08-07] MEDS: ENOXAPARIN 100 MG/ML SYRINGE 96 MG SUB-Q ×2 (08:39→21:03)
--- NOTE | 2023-08-07 08:50 | PCOTNOTE ---
Patient unavailable at this time. Patient having an EEG done. Will check back.
--- NOTE | 2023-08-07 09:38 | WPDNEUROPN ---
Progress Note: A&P Assessment and Plan (1) Altered mental status: Qualifiers: Altered mental status type: somnolence Qualified Code(s): R40.0 - Somnolence Code(s): R41.82 - Altered mental status, unspecified Status: Acute (2) Cellulitis: Qualifiers: Laterality: right Site of cellulitis: extremity Site of cellulitis of extremity: lower extremity Qualified Code(s): L03.115 - Cellulitis of right lower limb Code(s): L03.90 - Cellulitis, unspecified Status: Acute (3) DVT (deep venous thrombosis): Qualifiers: Affected thrombotic vein of extremity: femoral Chronicity: chronic DVT location: lower extremity Laterality: left Qualified Code(s): I82.512 - Chronic embolism and thrombosis of left femoral vein Code(s): I82.409 - Acute embolism and thrombosis of unspecified deep veins of unspecified lower extremity Status: Acute (4) Afib: Qualifiers: Atrial fibrillation type: paroxysmal Qualified Code(s): I48.0 - Paroxysmal atrial fibrillation Code(s): I48.91 - Unspecified atrial fibrillation Status: Acute Plan Ms. Oakes is a 87 year old female with a history of atrial fibrillation with recent pacemaker placement, CKD, HTN, brain tumor s/p resection, DVTs, hypothyroidism presenting for altered mental status. She has had a complicated course over the past month, sustaining a fall resulting in orbital wall fracture, globe rupture, having pacemaker placed for bradycardia, hospitalization with UTI/delirium. Seems that patient had baseline mentation prior to this currently admission, but became AOx1 which resulted in her being admitted. She was found to have cellulitis for which she is being treated. Underlying infection could cause this acute change in mental status, also with medications like Percocet contributing. It does not sound like she had any obvious seizure-like episode, but with history of chronic encephalomalacia, she is obviously at risk. She seems to be back to her baseline on my exam today. As for the concerns for underlying dementia, would not be a fair assessment to do more detailed mental status testing while in the hospital since there are several confounding variables present that can affect mentation. Once she is back to baseline, would certainly worth doing more thorough investigation at that time. Unfortunately we cannot obtain MRI brain during this hospitalization due to her pacemaker, but if there are ongoing concerns regarding mentation without improvement, then may be worth transferring for imaging. She was taken off anticoagulation for pacemaker placement so stroke is a possibility especially with underlying atrial fibrillation, although she did previously have Watchman procedure. I would recheck TSH since it has been over 6 months since last checked. Dr. Mclean recommended EEG and has started patient on Keppra 500mg BID. Subjective Date/time seen: 08/07/23 09:38 Interval history: Ms. Oakes is a 87 year old female with a history of atrial fibrillation s/p Watchman procedure, bradycardia with recent pacemaker placement, CKD, HTN, brain tumor s/p resection, DVTs, hypothyroidism presenting for altered mental status. Of note, patient had a fall last month that resulted in L ruptured glob and orbital wall fracture. She underwent repair at [facility]. During that admission she was bradycardic so had pacemaker placed with discontinuation of anticoagulation. There are reports of UTI and delirium during the hospital. She was discharged to rehab initially and then ultimately to [facility] earlier this month. On 08/01 she started to have hallucinations and changes in her mental status. At baseline she is AOx4, but on 08/04 was noted to be only AOx1. Patient had an episodes of 'weakness' just prior to admission where she slid off the bed and needed help getting to the floor but there was no LOC or reports of seizure like activity. When she presented to [facility]
--- NOTE | 2023-08-07 10:02 | WPDNEUROLOGY ---
Neurology EEG Report General Information Date of Study: 08/07/23 TEST Routine EEG DIAGNOSIS Altered mental status EEG NUMBER [id number]
--- NOTE | 2023-08-07 12:02 | P.PNIM_ITS ---
Progress Note: A&P Assessment and Plan (1) Altered mental status: Qualifiers: Altered mental status type: somnolence Qualified Code(s): R40.0 - Somnolence Code(s): R41.82 - Altered mental status, unspecified Status: Acute Assessment and Plan: 08/05/23: * Patient currently alert and oriented x3, no neuro deficits. * Patient states that she was taking Percocet at home which in the past has made her feel loopy in the past. Thinks that her altered mental status is mainly due to use of this Percocet. It was held on admission. * Neurology was consulted for the altered mental, we will touch base with them tomorrow. * Head CT was negative 08/06/23: * Patient more confused this morning. Changed pain medication to PRN dosing. Also changing cefepime and vancomycin to oral doxycycline and cefdinir as the cefepime can contribute to her confusion. * Neurology following. * on examination today patient is alert to voice and oriented x3, she states she was never confused and was just upset with her nurse this morning. 08/07/23: * Patient is alert oriented x3, sitting in the chair with her daughter and caregiver at the bedside. * Neurology consulted and following * Patient had EEG today, she is continued on Keppra, we are waiting results. * Neuro toxic medication addressed yesterday * Discussed plan care with daughter patient and caregiver at the bedside, see note above for details * Will screen for [facility] tonight to rule out any ARSH (2) Cellulitis: Qualifiers: Laterality: right Site of cellulitis: extremity Site of cellulitis of extremity: lower extremity Qualified Code(s): L03.115 - Cellulitis of right lower limb Code(s): L03.90 - Cellulitis, unspecified Status: Acute Assessment and Plan: 08/05/23: * Bilateral lower extremity edema and erythema * Patient currently on vancomycin and cefepime 08/06/23: * Changed cefepime and vancomycin to cefdinir and doxycycline oral * bilateral lower extremity edema and erythema unchanged from yesterday. 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 Overall limited evaluation of the lower extremity veins due to severe pain. 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 Start on heparin SQ 5000 U BID, hold off on further tx until more results available. 08/05/23: * Patient is currently on heparin 5000 units BID for DVT prophylaxis. * Blood thinners held due to AMS * Patient now alert and oriented x3 * Will touch base with neurology tomorrow about adding Eliquis or Xaralto for DVT 08/06/23: * Switched to therapeutic Lovenox for DVT, will touch base with care coordination for Eliquis or Xarelto pre-authorization. 08/07/23: * Patient shown a chronic partial thrombus of the left femoral vein after gerard whitfield with the daughter patient has had this for quite a while and was not any anticoagulation. Been discontinue therapeutic Lovenox at this time. * Continue with just Lovenox prophylaxis
--- NOTE | 2023-08-07 12:02 | PM.IMPN ---
Progress Note: A&P Assessment and Plan (1) Altered mental status: Qualifiers: Altered mental status type: somnolence Qualified Code(s): R40.0 - Somnolence Code(s): R41.82 - Altered mental status, unspecified Status: Acute Assessment and Plan: 08/05/23: Patient currently alert and oriented x3, no neuro deficits. Patient states that she was taking Percocet at home which in the past has made her feel loopy in the past. Thinks that her altered mental status is mainly due to use of this Percocet. It was held on admission. Neurology was consulted for the altered mental, we will touch base with them tomorrow. Head CT was negative 08/06/23: Patient more confused this morning. Changed pain medication to PRN dosing. Also changing cefepime and vancomycin to oral doxycycline and cefdinir as the cefepime can contribute to her confusion. Neurology following. on examination today patient is alert to voice and oriented x3, she states she was never confused and was just upset with her nurse this morning. 08/07/23: Patient is alert oriented x3, sitting in the chair with her daughter and caregiver at the bedside. Neurology consulted and following Patient had EEG today, she is continued on Keppra, we are waiting results. Neuro toxic medication addressed yesterday Discussed plan care with daughter patient and caregiver at the bedside, see note above for details Will screen for [facility] tonight to rule out any ARSH (2) Cellulitis: Qualifiers: Laterality: right Site of cellulitis: extremity Site of cellulitis of extremity: lower extremity Qualified Code(s): L03.115 - Cellulitis of right lower limb Code(s): L03.90 - Cellulitis, unspecified Status: Acute Assessment and Plan: 08/05/23: Bilateral lower extremity edema and erythema Patient currently on vancomycin and cefepime 08/06/23: Changed cefepime and vancomycin to cefdinir and doxycycline oral bilateral lower extremity edema and erythema unchanged from yesterday. 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 Overall limited evaluation of the lower extremity veins due to severe pain. 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 Start on heparin SQ 5000 U BID, hold off on further tx until more results available. 08/05/23: Patient is currently on heparin 5000 units BID for DVT prophylaxis. Blood thinners held due to AMS Patient now alert and oriented x3 Will touch base with neurology tomorrow about adding Eliquis or Xaralto for DVT 08/06/23: Switched to therapeutic Lovenox for DVT, will touch base with care coordination for Eliquis or Xarelto pre-authorization. 08/07/23: Patient shown a chronic partial thrombus of the left femoral vein after speaking with the daughter patient has had this for quite a while and was not any anticoagulation. Been discontinue therapeutic Lovenox at this time. Continue with just Lovenox prophylaxis (4) CHF (congestive heart failure): Qualifiers: Heart failure chronicity: acute on chronic Heart failure type: unspecified Qualified Code(s): I50.9 - Heart failure, unspecified Code(s): I50.9 - Heart failure, unspecified Status: Acute Assessment and Plan: 08/05/23: Continue home meds 08/06/23: no change to current treatment plan (5) CKD (chronic kidney disease), stage I
[2023-08-07 14:00] VITALS: BP 146/66; PULSE 62; RESP 20; TEMP 36.6; O2SAT 98
[2023-08-07] MEDS: HYDROcodone/acetaminophen (*CRX) 10-325 MG TABLET 1 TAB PO ×2 (15:01→21:02)
[2023-08-07] MEDS: ACETAMINOPHEN 500 MG TABLET 1000 MG PO (18:30)
[2023-08-07] MEDS: ATORVASTATIN 10 MG TABLET PO (21:02)
[2023-08-07 22:00] VITALS: BP 146/74; PULSE 64; RESP 20; TEMP 36.6; O2SAT 99
[2023-08-07 23:52] VITALS: O2SAT 95
[2023-08-08 06:00] VITALS: BP 142/56; PULSE 70; RESP 18; TEMP 36.4; O2SAT 92
[2023-08-08] MEDS: rOPINIRole HCL 1 MG TABLET 4 MG PO ×2 (08:43→16:31)
[2023-08-08] MEDS: ENOXAPARIN 100 MG/ML SYRINGE 96 MG SUB-Q (08:43)
[2023-08-08] MEDS: CEFDINIR 300 MG CAPSULE PO (08:44)
[2023-08-08] MEDS: THERAPEUTIC MULTIVITAMINS/MINERALS TAB (*BKC) 1 TABLET PO (08:44)
[2023-08-08] MEDS: levETIRAcetam 500 MG TABLET PO (08:44)
[2023-08-08] MEDS: metOLazone 5 MG TABLET PO (08:44)
[2023-08-08] MEDS: ASCORBIC ACID 500 MG TABLET PO (08:44)
[2023-08-08] MEDS: PANTOPRAZOLE 40 MG TABLET PO (08:44)
[2023-08-08] MEDS: FUROSEMIDE 40 MG TABLET PO (08:44)
[2023-08-08] MEDS: ASPIRIN 325 MG TABLET PO (08:44)
[2023-08-08] MEDS: DOXYCYCLINE HYCLATE 100 MG TABLET PO (08:44)
[2023-08-08] MEDS: VENLAFAXINE HCL XR 75 MG CAP.ER.24H 150 MG PO (08:44)
--- NOTE | 2023-08-08 09:26 | P.PNIM_ITS ---
Progress Note: A&P Assessment and Plan (1) Altered mental status: Qualifiers: Altered mental status type: somnolence Qualified Code(s): R40.0 - Somnolence Code(s): R41.82 - Altered mental status, unspecified Status: Acute Assessment and Plan: 08/05/23: * Patient currently alert and oriented x3, no neuro deficits. * Patient states that she was taking Percocet at home which in the past has made her feel loopy in the past. Thinks that her altered mental status is mainly due to use of this Percocet. It was held on admission. * Neurology was consulted for the altered mental, we will touch base with them tomorrow. * Head CT was negative 08/06/23: * Patient more confused this morning. Changed pain medication to PRN dosing. Also changing cefepime and vancomycin to oral doxycycline and cefdinir as the cefepime can contribute to her confusion. * Neurology following. * on examination today patient is alert to voice and oriented x3, she states she was never confused and was just upset with her nurse this morning. 08/07/23: * Patient is alert oriented x3, sitting in the chair with her daughter and caregiver at the bedside. * Neurology consulted and following * Patient had EEG today, she is continued on Keppra, we are waiting results. * Neuro toxic medication addressed yesterday * Discussed plan care with daughter patient and caregiver at the bedside, see note above for details * Will screen for [facility] tonight to rule out any ARSH 08/08/2023: * EEG results are still pending * neurology following * [facility] positive for sleep apnea with AHI 41.2, RI 41.2, hypopnea index 37.4, PATI 49.2. * CPAP with a pressure setting of 10 / 21% FiO2 ordered for tonight, may check ABG in the morning * discussed findings with patient and daughter, patient is willing to try the CPAP tonight (2) Cellulitis: Qualifiers: Laterality: right Site of cellulitis: extremity Site of cellulitis of extremity: lower extremity Qualified Code(s): L03.115 - Cellulitis of right lower limb Code(s): L03.90 - Cellulitis, unspecified Status: Acute Assessment and Plan: 08/05/23: * Bilateral lower extremity edema and erythema * Patient currently on vancomycin and cefepime 08/06/23: * Changed cefepime and vancomycin to cefdinir and doxycycline oral * bilateral lower extremity edema and erythema unchanged from yesterday. 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 Overall limited evaluation of the lower extremity veins due to severe pain. 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 Start on heparin SQ 5000 U BID, hold off on further tx until more results available. 08/05/23: * Patient is currently on heparin 5000 units BID for DVT prophylaxis. * Blood thinners held due to AMS * Patient now alert and oriented x3 * Will touch base with neurology tomorrow about adding Eliquis or Xaralto for DVT
--- NOTE | 2023-08-08 09:26 | PM.IMPN ---
Progress Note: A&P Assessment and Plan (1) Altered mental status: Qualifiers: Altered mental status type: somnolence Qualified Code(s): R40.0 - Somnolence Code(s): R41.82 - Altered mental status, unspecified Status: Acute Assessment and Plan: 08/05/23: Patient currently alert and oriented x3, no neuro deficits. Patient states that she was taking Percocet at home which in the past has made her feel loopy in the past. Thinks that her altered mental status is mainly due to use of this Percocet. It was held on admission. Neurology was consulted for the altered mental, we will touch base with them tomorrow. Head CT was negative 08/06/23: Patient more confused this morning. Changed pain medication to PRN dosing. Also changing cefepime and vancomycin to oral doxycycline and cefdinir as the cefepime can contribute to her confusion. Neurology following. on examination today patient is alert to voice and oriented x3, she states she was never confused and was just upset with her nurse this morning. 08/07/23: Patient is alert oriented x3, sitting in the chair with her daughter and caregiver at the bedside. Neurology consulted and following Patient had EEG today, she is continued on Keppra, we are waiting results. Neuro toxic medication addressed yesterday Discussed plan care with daughter patient and caregiver at the bedside, see note above for details Will screen for [facility] tonight to rule out any ARSH 08/08/2023: EEG results are still pending neurology following [facility] positive for sleep apnea with AHI 41.2, RI 41.2, hypopnea index 37.4, PATI 49.2. CPAP with a pressure setting of 10 / 21% FiO2 ordered for tonight, may check ABG in the morning discussed findings with patient and daughter, patient is willing to try the CPAP tonight (2) Cellulitis: Qualifiers: Laterality: right Site of cellulitis: extremity Site of cellulitis of extremity: lower extremity Qualified Code(s): L03.115 - Cellulitis of right lower limb Code(s): L03.90 - Cellulitis, unspecified Status: Acute Assessment and Plan: 08/05/23: Bilateral lower extremity edema and erythema Patient currently on vancomycin and cefepime 08/06/23: Changed cefepime and vancomycin to cefdinir and doxycycline oral bilateral lower extremity edema and erythema unchanged from yesterday. 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 Overall limited evaluation of the lower extremity veins due to severe pain. 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 Start on heparin SQ 5000 U BID, hold off on further tx until more results available. 08/05/23: Patient is currently on heparin 5000 units BID for DVT prophylaxis. Blood thinners held due to AMS Patient now alert and oriented x3 Will touch base with neurology tomorrow about adding Eliquis or Xaralto for DVT 08/06/23: Switched to therapeutic Lovenox for DVT, will touch base with care coordination for Eliquis or Xarelto pre-authorization. 08/07/23: Patient shown a chronic partial thrombus of the left femoral vein after speaking with the daughter patient has had this for quite a while and was not any anticoagulation. Been discontinue therapeutic Lovenox at this time. Continue with just Lovenox prophylaxis 08/08/2023:
[2023-08-08 14:00] VITALS: BP 143/72; PULSE 75; RESP 20; TEMP 36.5; O2SAT 98
--- NOTE | 2023-08-08 14:17 | WPDNEUROPN ---
Progress Note: A&P Assessment and Plan (1) Blind left eye: Qualifiers: Right eye visual impairment category: right - unspecified impairment Qualified Code(s): H54.40 - Blindness, one eye, unspecified eye Code(s): H54.40 - Blindness, one eye, unspecified eye Status: Acute (2) Recurrent falls: Code(s): R29.6 - Repeated falls Status: Acute Plan Remains stable. 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, because of the underlying abnormal MRI and the recurrent falls possibility of the focal seizure was consider EEG was obtained and patient was also started on Keppra, does have ongoing dementia, for the possibility of recurrent TIA versus stroke MRI was considered but because of the pacemaker was not carried out 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, Keppra has been started on 500mg twice a day and she has remained asymptomatic at this stage Exam Narrative: on examination today she is awake alert cooperative able to follow the verbal commands appropriately she is spontaneously moving her upper and lower extremities obviously she has the bruises and the edema, extraocular movements are full, no spontaneous nystagmus, 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 All the medication will be continued as such I will review her EEG. Objective Data Vital Signs Vital Signs: Vital Signs - 24 hr 08/07/23 20:00 08/07/23 22:00 08/07/23 23:52 Temperature 36.6 C Pulse Rate 64 Respiratory Rate 20 Blood Pressure 146/74 H Pulse Oximetry 99 95 Oxygen Delivery Room Air Room Air 08/08/23 06:00 08/08/23 08:00 Temperature 36.4 C L Pulse Rate 70 Respiratory Rate 18 Blood Pressure 142/56 H Pulse Oximetry 92 Oxygen Delivery Room Air Intake/Output Intake/Output: Intake & Output 08/05/23 08/06/23 08/07/23 08/08/23 23:59 23:59 23:59 23:59 Intake Total 1740 1560 1580 420 Balance 1740 1560 1580 420 Meds/Results Medications: Active Medications Generic Name Dose Route Start Last Admin Trade Name Freq PRN Reason Stop Dose Admin Acetaminophen 1,000 mg 08/04/23 23:22 08/07/23 18:30 Acetaminophen 500 Mg Tablet PO 1,000 mg Q6H PRN Administration Mild Pain (1-3) or Fever Hydrocodone Bitart/Acetaminophen 1 tab 08/06/23 09:16 08/07/23 21:02 Hydrocodone/Acetaminophen (*Crx) 10-325 Mg Tablet PO 1 tab QID@0800,1200,1600,2000 PRN Administration pain Albuterol 2 puff 08/04/23 23:16 Albuterol Sulfate (*Sp) Aerosol 1 Puff INHALATION Q4H PRN Shortness Of Breath Ascorbic Acid 500 mg 08/05/23 09:00 08/08/23 08:44 Ascorbic Acid 500 Mg Tablet PO 500 mg DAILY DARIEN Administration Aspirin 325 mg 08/05/23 08:00 08/08/23 08:44 Aspirin 325 Mg Tablet PO 325 mg DAILY@0800 DARIEN Administration Atorvastatin Calcium 10 mg 08/04/23 23:45 08/07/23 21:02 Atorvastatin 10 Mg Tablet PO 10 mg HS DARIEN Administration Cefdinir 300 mg 08/06/23 21:00 08/08/23 08:44 Cefdinir 300 Mg Capsule PO 08/08/23 23:59 300 mg Q12HR DARIEN Administration Doxycycline Hyclate 100 mg 08/06/23 21:00 08/08/23 08:44 Doxycycline Hyclate 100 Mg Tablet PO 08/08/23 23:59 100 mg Q12HR DARIEN Administration Enoxaparin Sodium 40 mg 08/09/23 09:00 Enoxaparin 40 Mg/0.4 Ml Syringe SUB-Q DAILY [facility] Furosemi
--- NOTE | 2023-08-08 14:43 | P.NEURO_ITS ---
Neurology EEG Report General Information Date of Study: 08/07/23 TEST eeg DIAGNOSIS Status post brain tumor excision with history of being found disoriented then return to baseline. Tumor was excised about 15 years ago. CONDITION OF RECORDING Awake drowsy and sleep EEG NUMBER [id number] CLINICAL HISTORY patient was brought to the hospital for the new onset of confusion because of the acute changes in the mental status raising the possibility of seizure though by the time EEG was done she was back to her normal self EEG DESCRIPTION basic resting occipital frequency consists of minimal amount of poorly organized low voltage 9 to 11 hertz per 2nd alpha posterior admixed with low- voltage 15 to 18 hertz per 2nd beta. Low-voltage beta activity seen diffusely admixed with waxing and waning posterior alpha rhythm during drowsiness. Bihe mispheric medium voltage 2 to 3 hertz per 2nd delta activities noted intermittently without associated paroxysmal activity. At times the slow activity is asymmetrical with more prominence over the left hemisphere linkages though there are some sharp waves but no spikes. IMPRESSION Abnormal record during drowsiness and sleep with presence of excessive amount of delta activity with occasional sharp components but without evidence of significant paroxysmal discharge clinical correlation recommended as this tracing is not highly diagnostic of seizure disorder.
--- NOTE | 2023-08-08 21:43 | PC.NURSE ---
Pt has been sitting on side of bed between rails and refusing to lay down or let staff assist her to get up. She has been yelling and cussing at staff and at times can become aggressive. Pt states you damn construction workers pretending to be nurses are not touching me . Pt refusing all medication so far this shift, stating, I don't trust any of you bitches. Pt had to be assisted back into bed with multiple staff members, to prevent falls.
[2023-08-08 21:56] VITALS: PULSE 65; RESP 20; TEMP 36.6; O2SAT 99
[2023-08-08] MEDS: HYDROcodone/acetaminophen (*CRX) 10-325 MG TABLET 1 TAB PO (23:35)
[2023-08-09] VITALS (7 sets, daily range): BP systolic 146–187; BP diastolic 60–66; PULSE 60–89; RESP 15–20; TEMP 36.7–38.8; O2SAT 91–99
[2023-08-09] MEDS: rOPINIRole HCL 1 MG TABLET 4 MG PO ×2 (01:17→17:28)
[2023-08-09] MEDS: metOLazone 5 MG TABLET PO (08:22)
[2023-08-09] MEDS: ASPIRIN 325 MG TABLET PO (08:23)
[2023-08-09] MEDS: ASCORBIC ACID 500 MG TABLET PO (08:23)
[2023-08-09] MEDS: FUROSEMIDE 40 MG TABLET PO (08:23)
[2023-08-09] MEDS: PANTOPRAZOLE 40 MG TABLET PO (08:23)
[2023-08-09] MEDS: levETIRAcetam 500 MG TABLET PO ×2 (08:23→20:12)
[2023-08-09] MEDS: VENLAFAXINE HCL XR 75 MG CAP.ER.24H 150 MG PO (08:23)
[2023-08-09] MEDS: POTASSIUM CHLORIDE 20 MEQ ER TABLET PO (08:24)
[2023-08-09] MEDS: ENOXAPARIN 40 MG/0.4 ML SYRINGE SUB-Q (08:24)
[2023-08-09] MEDS: THERAPEUTIC MULTIVITAMINS/MINERALS TAB (*BKC) 1 TABLET PO (08:24)
[2023-08-09] MEDS: HYDROcodone/acetaminophen (*CRX) 10-325 MG TABLET 1 TAB PO ×2 (10:38→20:13)
[2023-08-09 13:17] LABS: Basophils Percent Auto 0.5 % (0.2-1.2); Eosinophils Percent Auto 0.5 % (0-4.4); Hematocrit 41.2 % (37.0-47.0); Hemoglobin 12.8 g/dL (12.0-15.0); Immature Granulocyte Absolute 0.01 K/mm3 (0.00-0.031); Immature Granulocyte Percent A 0.3 % (0-0.5); Lymphocytes Percent Auto 8.1 % (18.3-44.2); Mean Corpuscular HGB Conc 31.1 g/dl (32-36); Mean Corpuscular Hemoglobin 30.1 pg (26-34); Mean Corpuscular Volume 96.9 fl (80-100); Mean Platelet Volume 9.4 fl (7.4-10.4); Monocytes Absolute Auto 0.6 K/mm3 (0.1-0.6); Monocytes Percent Auto 15.1 % (2.6-8.5); Neutrophils Absolute Auto 2.8 K/mm3 (1.3-6.7); Neutrophils Percent Auto 75.5 % (45.5-73.1); Platelet Count Result 196 k/mm3 (150-375); Red Blood Count 4.25 M/mm3 (4.2-5.4); Red Cell Distribution Width 14.6 % (11.5-14.5); White Blood Count 3.7 K/mm3 (4.5-10.0)
[2023-08-09 13:35] LABS: Alanine Aminotransferase 20 U/L (6-35); Alkaline Phosphatase 141 U/L (38-126); Anion Gap 8 mmol/L (8-16); Aspartate Amino Transferase 39 U/L (14-36); Bilirubin,Total 0.9 mg/dL (0.2-1.3); Blood Urea Nitrogen 14 mg/dL (7-17); Calcium 9.7 mg/dL (8.4-10.2); Carbon Dioxide 33 mmol/L (22-30); Chloride 97 mmol/L (98-107); Estimated CRCL calculation 65 ml/min; Estimated Glomerular Filt Rate > 60; Glucose 149 mg/dL (65-110); Potassium 4.1 mmol/L (3.4-5.0); Sodium 138 mmol/L (137-145)
--- NOTE | 2023-08-09 17:13 | P.PNIM_ITS ---
Progress Note: A&P Assessment and Plan (1) Altered mental status: Qualifiers: Altered mental status type: somnolence Qualified Code(s): R40.0 - Somnolence Code(s): R41.82 - Altered mental status, unspecified Status: Acute Assessment and Plan: 08/05/23: * Patient currently alert and oriented x3, no neuro deficits. * Patient states that she was taking Percocet at home which in the past has made her feel loopy in the past. Thinks that her altered mental status is mainly due to use of this Percocet. It was held on admission. * Neurology was consulted for the altered mental, we will touch base with them tomorrow. * Head CT was negative 08/06/23: * Patient more confused this morning. Changed pain medication to PRN dosing. Also changing cefepime and vancomycin to oral doxycycline and cefdinir as the cefepime can contribute to her confusion. * Neurology following. * on examination today patient is alert to voice and oriented x3, she states she was never confused and was just upset with her nurse this morning. 08/07/23: * Patient is alert oriented x3, sitting in the chair with her daughter and caregiver at the bedside. * Neurology consulted and following * Patient had EEG today, she is continued on Keppra, we are waiting results. * Neuro toxic medication addressed yesterday * Discussed plan care with daughter patient and caregiver at the bedside, see note above for details * Will screen for [facility] tonight to rule out any ARSH 08/08/2023: * EEG results are still pending * neurology following * [facility]nea[facility] positive for sleep apnea with AHI 41.2, RI 41.2, hypopnea index 37.4, PATI 49.2. * CPAP with a pressure setting of 10 / 21% FiO2 ordered for tonight, may check ABG in the morning * discussed findings with patient and daughter, patient is willing to try the CPAP tonight 08/09/2023: * EEG was reported is abnormal record during drowsiness is sleep with presence of excessive amounts of delta activity with occasional sharp components but without evidence of significant paroxysmal discharge. * Neurology following and I am awaiting their input reguarding the EEG results * Patient wore CPAP last night (2) Cellulitis: Qualifiers: Laterality: right Site of cellulitis: extremity Site of cellulitis of extremity: lower extremity Qualified Code(s): L03.115 - Cellulitis of right lower limb Code(s): L03.90 - Cellulitis, unspecified Status: Acute Assessment and Plan: 08/05/23: * Bilateral lower extremity edema and erythema * Patient currently on vancomycin and cefepime 08/06/23: * Changed cefepime and vancomycin to cefdinir and doxycycline oral * bilateral lower extremity edema and erythema unchanged from yesterday. 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 Overall limited evaluation of the lower extremity veins due to severe pain. recently taken off anticoagulation on 07/14 post-pacemaker placeme
--- NOTE | 2023-08-09 17:13 | PM.IMPN ---
Progress Note: A&P Assessment and Plan (1) Altered mental status: Qualifiers: Altered mental status type: somnolence Qualified Code(s): R40.0 - Somnolence Code(s): R41.82 - Altered mental status, unspecified Status: Acute Assessment and Plan: 08/05/23: Patient currently alert and oriented x3, no neuro deficits. Patient states that she was taking Percocet at home which in the past has made her feel loopy in the past. Thinks that her altered mental status is mainly due to use of this Percocet. It was held on admission. Neurology was consulted for the altered mental, we will touch base with them tomorrow. Head CT was negative 08/06/23: Patient more confused this morning. Changed pain medication to PRN dosing. Also changing cefepime and vancomycin to oral doxycycline and cefdinir as the cefepime can contribute to her confusion. Neurology following. on examination today patient is alert to voice and oriented x3, she states she was never confused and was just upset with her nurse this morning. 08/07/23: Patient is alert oriented x3, sitting in the chair with her daughter and caregiver at the bedside. Neurology consulted and following Patient had EEG today, she is continued on Keppra, we are waiting results. Neuro toxic medication addressed yesterday Discussed plan care with daughter patient and caregiver at the bedside, see note above for details Will screen for [facility] tonight to rule out any ARSH 08/08/2023: EEG results are still pending neurology following [facility] positive for sleep apnea with AHI 41.2, RI 41.2, hypopnea index 37.4, PATI 49.2. CPAP with a pressure setting of 10 / 21% FiO2 ordered for tonight, may check ABG in the morning discussed findings with patient and daughter, patient is willing to try the CPAP tonight 08/09/2023: EEG was reported is abnormal record during drowsiness is sleep with presence of excessive amounts of delta activity with occasional sharp components but without evidence of significant paroxysmal discharge. Neurology following and I am awaiting their input reguarding the EEG results Patient wore CPAP last night (2) Cellulitis: Qualifiers: Laterality: right Site of cellulitis: extremity Site of cellulitis of extremity: lower extremity Qualified Code(s): L03.115 - Cellulitis of right lower limb Code(s): L03.90 - Cellulitis, unspecified Status: Acute Assessment and Plan: 08/05/23: Bilateral lower extremity edema and erythema Patient currently on vancomycin and cefepime 08/06/23: Changed cefepime and vancomycin to cefdinir and doxycycline oral bilateral lower extremity edema and erythema unchanged from yesterday. 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 Overall limited evaluation of the lower extremity veins due to severe pain. 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 Start on heparin SQ 5000 U BID, hold off on further tx until more results available. 08/05/23: Patient is currently on heparin 5000 units BID for DVT prophylaxis. Blood thinners held due to AMS Patient now alert and oriented x3 Will touch base with neurology tomorrow about adding Eliquis or Xaralto for DVT 08/06/23: Switched to therapeutic Lovenox for DVT, will touch base with care coordination for
[2023-08-09] MEDS: ATORVASTATIN 10 MG TABLET PO (20:12)
[2023-08-10 05:10] VITALS: BP 151/70; PULSE 88; RESP 18; TEMP 37.6; O2SAT 90
[2023-08-10] MEDS: LEVOTHYROXINE SODIUM 88 MCG TABLET PO (05:44)
[2023-08-10 06:53] LABS: Hematocrit 34.4 % (37.0-47.0); Hemoglobin 10.8 g/dL (12.0-15.0); Mean Corpuscular HGB Conc 31.4 g/dl (32-36); Mean Corpuscular Hemoglobin 30.2 pg (26-34); Mean Corpuscular Volume 96.1 fl (80-100); Mean Platelet Volume 9.6 fl (7.4-10.4); Platelet Count Result 153 k/mm3 (150-375); Red Blood Count 3.58 M/mm3 (4.2-5.4); Red Cell Distribution Width 14.7 % (11.5-14.5); White Blood Count 2.6 K/mm3 (4.5-10.0)
[2023-08-10 07:07] LABS: Alanine Aminotransferase 18 U/L (6-35); Albumin Level 3.4 g/dL (3.5-5.1); Alkaline Phosphatase 125 U/L (38-126); Anion Gap 0 mmol/L (8-16); Aspartate Amino Transferase 35 U/L (14-36); Bilirubin,Total 0.8 mg/dL (0.2-1.3); Blood Urea Nitrogen 15 mg/dL (7-17); Calcium 8.7 mg/dL (8.4-10.2); Carbon Dioxide 38 mmol/L (22-30); Chloride 95 mmol/L (98-107); Estimated CRCL calculation 53 ml/min; Estimated Glomerular Filt Rate > 60; Glucose 95 mg/dL (65-110); Potassium 3.7 mmol/L (3.4-5.0); Sodium 133 mmol/L (137-145)
[2023-08-10] MEDS: ENOXAPARIN 40 MG/0.4 ML SYRINGE SUB-Q (08:50)
[2023-08-10] MEDS: ASPIRIN 325 MG TABLET PO (08:50)
[2023-08-10] MEDS: PANTOPRAZOLE 40 MG TABLET PO (08:50)
[2023-08-10] MEDS: levETIRAcetam 500 MG TABLET PO ×2 (08:50→21:03)
[2023-08-10] MEDS: FUROSEMIDE 40 MG TABLET PO (08:50)
[2023-08-10] MEDS: POTASSIUM CHLORIDE 20 MEQ ER TABLET PO (08:50)
[2023-08-10] MEDS: THERAPEUTIC MULTIVITAMINS/MINERALS TAB (*BKC) 1 TABLET PO (08:50)
[2023-08-10] MEDS: ASCORBIC ACID 500 MG TABLET PO (08:50)
[2023-08-10] MEDS: VENLAFAXINE HCL XR 75 MG CAP.ER.24H 150 MG PO (08:51)
[2023-08-10] MEDS: metOLazone 5 MG TABLET PO (08:51)
[2023-08-10] MEDS: rOPINIRole HCL 1 MG TABLET 4 MG PO ×2 (08:51→16:41)
[2023-08-10 14:00] VITALS: BP 143/56; PULSE 71; RESP 20; TEMP 37.3; O2SAT 100
[2023-08-10] MEDS: HYDROcodone/acetaminophen (*CRX) 10-325 MG TABLET 1 TAB PO (14:08)
[2023-08-10 14:59] LABS: SARS-CoV-2 RNA PCR Positive (Negative)
--- NOTE | 2023-08-10 16:37 | P.PNIM_ITS ---
Progress Note: A&P Assessment and Plan (1) Altered mental status: Qualifiers: Altered mental status type: somnolence Qualified Code(s): R40.0 - Somnolence Code(s): R41.82 - Altered mental status, unspecified Status: Acute Assessment and Plan: 08/05/23: * Patient currently alert and oriented x3, no neuro deficits. * Patient states that she was taking Percocet at home which in the past has made her feel loopy in the past. Thinks that her altered mental status is mainly due to use of this Percocet. It was held on admission. * Neurology was consulted for the altered mental, we will touch base with them tomorrow. * Head CT was negative 08/06/23: * Patient more confused this morning. Changed pain medication to PRN dosing. Also changing cefepime and vancomycin to oral doxycycline and cefdinir as the cefepime can contribute to her confusion. * Neurology following. * on examination today patient is alert to voice and oriented x3, she states she was never confused and was just upset with her nurse this morning. 08/07/23: * Patient is alert oriented x3, sitting in the chair with her daughter and caregiver at the bedside. * Neurology consulted and following * Patient had EEG today, she is continued on Keppra, we are waiting results. * Neuro toxic medication addressed yesterday * Discussed plan care with daughter patient and caregiver at the bedside, see note above for details * Will screen for [facility] tonight to rule out any ARSH 08/08/2023: * EEG results are still pending * neurology following * [facility] positive for sleep apnea with AHI 41.2, RI 41.2, hypopnea index 37.4, PATI 49.2. * CPAP with a pressure setting of 10 / 21% FiO2 ordered for tonight, may check ABG in the morning * discussed findings with patient and daughter, patient is willing to try the CPAP tonight 08/09/2023: * EEG was reported is abnormal record during drowsiness is sleep with presence of excessive amounts of delta activity with occasional sharp components but without evidence of significant paroxysmal discharge. * Neurology following and I am awaiting their input reguarding the EEG results * Patient wore CPAP last night 08/10/23: * Neurology following. * continue Cpap * Currently alert and oriented x3 * Patient positive for Covid when swabbed for SNF placement. Discharge on hold as they rearrange for an isolation room * Plan for discharge tomorrow. (2) Cellulitis: Qualifiers: Laterality: right Site of cellulitis: extremity Site of cellulitis of extremity: lower extremity Qualified Code(s): L03.115 - Cellulitis of right lower limb Code(s): L03.90 - Cellulitis, unspecified Status: Acute Assessment and Plan: 08/05/23: * Bilateral lower extremity edema and erythema * Patient currently on vancomycin and cefepime 08/06/23: * Changed cefepime and vancomycin to cefdinir and doxycycline oral * bilateral lower extremity edema and erythema unchanged from yesterday. 08/07/23: * Continue with oral antibiotics * Bilateral lower extremity edema and erythema improved 08/08/2023: * no change to current treatment plan (3) DVT (deep venous thrombosis): Qualifiers: Affected thrombotic vein of extremity: femoral Chronicity: chronic DVT location: lower extremity Laterality: left Qualified Code(s): I82.512 - Chronic embolism and thrombosis of left femoral vein Code(s): I82.409 - Acute embolism and thrombosis of unspecified deep veins of unspecified lower extremity Status: Acute
--- NOTE | 2023-08-10 16:37 | PM.IMPN ---
Progress Note: A&P Assessment and Plan (1) Altered mental status: Qualifiers: Altered mental status type: somnolence Qualified Code(s): R40.0 - Somnolence Code(s): R41.82 - Altered mental status, unspecified Status: Acute Assessment and Plan: 08/05/23: Patient currently alert and oriented x3, no neuro deficits. Patient states that she was taking Percocet at home which in the past has made her feel loopy in the past. Thinks that her altered mental status is mainly due to use of this Percocet. It was held on admission. Neurology was consulted for the altered mental, we will touch base with them tomorrow. Head CT was negative 08/06/23: Patient more confused this morning. Changed pain medication to PRN dosing. Also changing cefepime and vancomycin to oral doxycycline and cefdinir as the cefepime can contribute to her confusion. Neurology following. on examination today patient is alert to voice and oriented x3, she states she was never confused and was just upset with her nurse this morning. 08/07/23: Patient is alert oriented x3, sitting in the chair with her daughter and caregiver at the bedside. Neurology consulted and following Patient had EEG today, she is continued on Keppra, we are waiting results. Neuro toxic medication addressed yesterday Discussed plan care with daughter patient and caregiver at the bedside, see note above for details Will screen for [facility] tonight to rule out any ARSH 08/08/2023: EEG results are still pending neurology following [facility] positive for sleep apnea with AHI 41.2, RI 41.2, hypopnea index 37.4, PATI 49.2. CPAP with a pressure setting of 10 / 21% FiO2 ordered for tonight, may check ABG in the morning discussed findings with patient and daughter, patient is willing to try the CPAP tonight 08/09/2023: EEG was reported is abnormal record during drowsiness is sleep with presence of excessive amounts of delta activity with occasional sharp components but without evidence of significant paroxysmal discharge. Neurology following and I am awaiting their input reguarding the EEG results Patient wore CPAP last night 08/10/23: Neurology following. continue Cpap Currently alert and oriented x3 Patient positive for Covid when swabbed for SNF placement. Discharge on hold as they rearrange for an isolation room Plan for discharge tomorrow. (2) Cellulitis: Qualifiers: Laterality: right Site of cellulitis: extremity Site of cellulitis of extremity: lower extremity Qualified Code(s): L03.115 - Cellulitis of right lower limb Code(s): L03.90 - Cellulitis, unspecified Status: Acute Assessment and Plan: 08/05/23: Bilateral lower extremity edema and erythema Patient currently on vancomycin and cefepime 08/06/23: Changed cefepime and vancomycin to cefdinir and doxycycline oral bilateral lower extremity edema and erythema unchanged from yesterday. 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 Overall limited evaluation of the lower extremity veins due to severe pain. 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 Start on heparin SQ 5000 U BID, hold off on further tx until more results available. 08/05/23: Patient is currently on heparin 5000 units BID for DVT prophylaxis. Blood thi
[2023-08-10 19:18] VITALS: PULSE 71; RESP 20; O2SAT 100
[2023-08-10] MEDS: ATORVASTATIN 10 MG TABLET PO (21:03)
[2023-08-10 22:00] VITALS: BP 158/67; PULSE 69; RESP 20; TEMP 36.2; O2SAT 94
[2023-08-11] MEDS: LEVOTHYROXINE SODIUM 88 MCG TABLET PO (05:44)
[2023-08-11] MEDS: HYDROcodone/acetaminophen (*CRX) 10-325 MG TABLET 1 TAB PO (05:45)
[2023-08-11 06:00] VITALS: BP 147/71; PULSE 79; RESP 20; TEMP 36.5; O2SAT 90
[2023-08-11 06:38] LABS: Hematocrit 33.9 % (37.0-47.0); Hemoglobin 10.3 g/dL (12.0-15.0); Mean Corpuscular HGB Conc 30.4 g/dl (32-36); Mean Corpuscular Hemoglobin 29.6 pg (26-34); Mean Corpuscular Volume 97.4 fl (80-100); Mean Platelet Volume 9.4 fl (7.4-10.4); Platelet Count Result 133 k/mm3 (150-375); Red Blood Count 3.48 M/mm3 (4.2-5.4); Red Cell Distribution Width 14.8 % (11.5-14.5)
[2023-08-11 06:50] LABS: Alanine Aminotransferase 21 U/L (6-35); Albumin Level 3.4 g/dL (3.5-5.1); Alkaline Phosphatase 118 U/L (38-126); Anion Gap 1 mmol/L (8-16); Aspartate Amino Transferase 42 U/L (14-36); Bilirubin,Total 0.7 mg/dL (0.2-1.3); Blood Urea Nitrogen 14 mg/dL (7-17); Calcium 8.6 mg/dL (8.4-10.2); Carbon Dioxide 38 mmol/L (22-30); Chloride 95 mmol/L (98-107); Estimated CRCL calculation 53 ml/min; Estimated Glomerular Filt Rate > 60; Glucose 97 mg/dL (65-110); Potassium 3.5 mmol/L (3.4-5.0); Sodium 134 mmol/L (137-145)
[2023-08-11 08:00] VITALS: O2SAT 90
[2023-08-11] MEDS: ENOXAPARIN 40 MG/0.4 ML SYRINGE SUB-Q (08:33)
[2023-08-11] MEDS: ASCORBIC ACID 500 MG TABLET PO (08:33)
[2023-08-11] MEDS: ASPIRIN 325 MG TABLET PO (08:33)
[2023-08-11] MEDS: VENLAFAXINE HCL XR 75 MG CAP.ER.24H 150 MG PO (08:33)
[2023-08-11] MEDS: levETIRAcetam 500 MG TABLET PO (08:34)
[2023-08-11] MEDS: PANTOPRAZOLE 40 MG TABLET PO (08:34)
[2023-08-11] MEDS: rOPINIRole HCL 1 MG TABLET 4 MG PO (08:34)
[2023-08-11] MEDS: THERAPEUTIC MULTIVITAMINS/MINERALS TAB (*BKC) 1 TABLET PO (08:34)
[2023-08-11] MEDS: POTASSIUM CHLORIDE 20 MEQ ER TABLET PO (08:34)
[2023-08-11] MEDS: metOLazone 5 MG TABLET PO (08:34)
[2023-08-11] MEDS: FUROSEMIDE 40 MG TABLET PO (08:34)
[2023-08-11 14:00] VITALS: BP 158/76; PULSE 68; RESP 16; TEMP 36.3; O2SAT 94
--- NOTE | 2023-08-11 14:11 | PM.DS ---
DS: Admitting Diagnosis Discharge Date 08/11/23 Admitting Diagnosis AMS DS: Discharge Diagnosis Discharge Diagnosis (1) Altered mental status: Qualifiers: Altered mental status type: somnolence Qualified Code(s): R40.0 - Somnolence Code(s): R41.82 - Altered mental status, unspecified Status: Acute (2) Cellulitis: Qualifiers: Laterality: right Site of cellulitis: extremity Site of cellulitis of extremity: lower extremity Qualified Code(s): L03.115 - Cellulitis of right lower limb Code(s): L03.90 - Cellulitis, unspecified Status: Acute (3) DVT (deep venous thrombosis): Qualifiers: Affected thrombotic vein of extremity: femoral Chronicity: chronic DVT location: lower extremity Laterality: left Qualified Code(s): I82.512 - Chronic embolism and thrombosis of left femoral vein Code(s): I82.409 - Acute embolism and thrombosis of unspecified deep veins of unspecified lower extremity Status: Acute (4) CHF (congestive heart failure): Qualifiers: Heart failure chronicity: acute on chronic Heart failure type: unspecified Qualified Code(s): I50.9 - Heart failure, unspecified Code(s): I50.9 - Heart failure, unspecified Status: Acute (5) CKD (chronic kidney disease), stage III: Qualifiers: Chronic kidney disease stage 3 subtype: stage 3a (GFR 45-59) Qualified Code(s): N18.31 - Chronic kidney disease, stage 3a Code(s): N18.30 - Chronic kidney disease, stage 3 unspecified Status: Acute (6) Hypothyroidism (acquired): Code(s): E03.9 - Hypothyroidism, unspecified Status: Acute (7) Blind left eye: Qualifiers: Right eye visual impairment category: right - unspecified impairment Qualified Code(s): H54.40 - Blindness, one eye, unspecified eye Code(s): H54.40 - Blindness, one eye, unspecified eye Status: Acute DS: Summary Hospital Course Reason for hospitalization: AMS Cellulitis DVT CHF CKD stage III hypothyroidism Blind in left eye Hospital Course: This is an 87 year old female who presented to the hospital on 08/04/23 with complaint of hallucinations, altered mental status, and intermittent insomnia for the last several days. She was also noted to be weak and sustained an assisted fall to the floor at [place]. Patient was sent here for further workup. Workup in the ER included a head CT which was negative for any acute intracranial abnormality, chronic encephalomalacia in the right frontoparietal region with adjacent craniotomy defect, chronic but stable area of calcified dural thickening, consistent with postoperative change versus meningioma, age related findings. Chest x-ray revealed mild pulmonary edema, cardiomegaly. Venous doppler studies shown chronic partial thrombosis of the left femoral vein. UA shown 2+ protein, otherwise negative for bacteria. Respiratory panel negative for SARS and Influenza. Acetaminophen level < 10L, and salicylates < 1.0. Baseline labs were essentially unremarkable, troponin was negative x2, C-reactive protein 2.5, proBNP 1740, procal 0.1, TSH 1.410. Neurology was consulted and did EEG which was inconclusive as to any seizure activity. Patient was started on Keppra by Neurology services. She was also being treated for cellulitis and was on Vancomycin and Cefepime which was switched to oral dosing of cefdinir and doxycycline which she completed while here. She was also found to have ARSH with a positive apnea link. Patient was placed on Cpap while inpatient. She had much improvement in her neurological symptoms after initiation. Case coordination working on rehab placement, we finally got approval for SNF however she was found to be COVID positive delaying her stay by one day due to changing of rooms to accommodate the isolation. Patient is now stable for discharge, Labs are essentially unremarkable. She is currently on room air, VSS, she is afebrile
== END 2023-08-11 15:30 | DRG 947 ==
LOC: ANHED 12:19 → ANH3MEDSUR 13:57
PROVIDERS: Student in an Organized Health Care Education/Training Program; Admitting Provider General Practice; Emergency Provider Emergency Medicine; PCP Emergency Medicine; Visit Provider Nurse Practitioner Acute Care
DX: R41.82 Altered mental status, unspecified (principal); U07.1 COVID-19; I48.20 Chronic atrial fibrillation, unspecified; L03.115 Cellulitis of right lower limb; I82.512 Chronic embolism and thrombosis of left femoral vein; N18.30 Chronic kidney disease, stage 3 unspecified; I12.9 Hypertensive chronic kidney disease with stage 1 through stage 4 chronic kidney disease, or unspecified chronic kidney disease; I73.9 Peripheral vascular disease, unspecified; E78.5 Hyperlipidemia, unspecified; E03.9 Hypothyroidism, unspecified; T50.915A Adverse effect of multiple unspecified drugs, medicaments and biological substances, initial encounter; R56.9 Unspecified convulsions; M47.816 Spondylosis without myelopathy or radiculopathy, lumbar region; G89.29 Other chronic pain; G47.30 Sleep apnea, unspecified; G93.89 Other specified disorders of brain; F32.9 Major depressive disorder, single episode, unspecified; Z96.649 Presence of unspecified artificial hip joint; Z96.659 Presence of unspecified artificial knee joint; W19.XXXD Unspecified fall, subsequent encounter; S05.32XD Ocular laceration without prolapse or loss of intraocular tissue, left eye, subsequent encounter; S02.32XD Fracture of orbital floor, left side, subsequent encounter for fracture with routine healing; S02.832D Fracture of medial orbital wall, left side, subsequent encounter for fracture with routine healing; Z87.891 Personal history of nicotine dependence; Z79.82 Long term (current) use of aspirin; Z95.0 Presence of cardiac pacemaker
CPT/HCPCS: 36415; 36600; 70450; 71045; 80053; 80202; 80307; 81001; 82140; 82607; 82746; 83880; 84145; 84443; 84484; 85025; 85027; 85610; 85652; 85730; 86140; 87635; 87636; 93005; 93970; 94762; 95816; 96365; 96366; 96367; 96372; 96375; 96376; 97110; 97116; 97161; 97166; 97530; 97535; 99285; A9270; G0378; J0692; J1644; J1650; J1940; J3370

== ENCOUNTER 2023-09-07 18:06 | Emergency (ER) | payer MEDICARE, SELFPAY ==
--- NOTE | ~2023-09-07 | XR_ITS ---
EXAMINATION: XR wrist RT 2V INDICATION: Right wrist fracture post reduction and splinting TECHNIQUE: Two views of the right wrist are obtained. COMPARISON: 1857 hours FINDINGS: Again seen is an oblique fracture of the radial styloid which has been partially reduced. A ngulation at the fracture site is unchanged. The ulnar styloid avulsion is unchanged. A splint has be en applied. IMPRESSION: 1. Partially reduced and splinted fractures of the radius and ulna. Reviewed, dictated and finalized at location F. LUBRICATOR
--- NOTE | ~2023-09-07 | XR_ITS ---
EXAMINATION: XR wrist RT min 3V INDICATION: Right wrist pain TECHNIQUE: Three views of the right wrist are obtained. COMPARISON: 01/22/2014 FINDINGS: There are chronic fracture deformities of the right distal radius. There is an acute obliqu e fracture of the radial styloid which extends to the distal articular surface. There are 25 degrees of dorsal angulation at the fracture site. There is an acute ulnar styloid avulsion. No definite eduardo tional fracture is identified although sensitivity is limited by osteopenia. There is soft tissue swe lling of the wrist. IMPRESSION: 1. Acute on chronic fractures of the distal radius and ulna as detailed above. Reviewed, dictated and finalized at location F. TIVE PHYSICAL EDUCATION SPECIALIST
[2023-09-07 18:07] VITALS: BP 151/67; PULSE 65; RESP 16; TEMP 36.7; O2SAT 100
--- NOTE | 2023-09-07 19:40 | ED.UPPEXIN ---
HPI - Extremity Injury (Upper) General Chief Complaint: Extremity Injury, Upper <Sunita Noble PA-C - Last Filed: 09/08/23 01:27> Stated Complaint: glf, wrist deformity <Sunita Noble PA-C - Last Filed: 09/08/23 01:27> Time Seen by Provider: 09/07/23 18:17 <PAMELA Arriaga Last Filed: 09/08/23 01:27> Source: patient <PAMELA Arriaga Last Filed: 09/08/23 01:27> Mode of arrival: EMS <PAMELA Arriaga Last Filed: 09/08/23 01:27> Limitations: no limitations <PAMELA Arriaga Last Filed: 09/08/23 01:27> History of Present Illness HPI narrative: Patient is an 87 y/o female who presents to the ED via EMS with report of R wrist injury. Patient is a resident of [facility]. 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 She attempted to catch herself with her right wrist. She sustained injury to wrist. Obvious deformity. X-rays at the facility confirmed distal radius and ulnar fractures. She was then sent here for further evaluation. Patient has had previous fx several years ago to R distal radius. Patient denies any other injuries or areas of pain. She did not hit her head or lose consciousness. Denies numbness or tingling. <PAMELA Arriaga Last Filed: 09/08/23 01:27> Related Data Home Medications: Home Medications Medication Instructions Recorded Confirmed aspirin 325 mg tablet 325 mg PO DAILY 08/06/19 08/04/23 gabapentin 100 mg capsule 100 mg PO TID 08/13/21 08/04/23 albuterol sulfate 90 mcg/actuation 2 inh inhalation Q4H PRN Shortness 04/28/23 08/04/23 aerosol inhaler Of Breath ropinirole 4 mg tablet 4 mg PO BID 04/28/23 08/04/23 metolazone 5 mg tablet 5 mg PO DAILY 04/29/23 08/04/23 ascorbic acid (vitamin C) 500 mg 500 mg PO DAILY 08/04/23 08/04/23 tablet multivitamin,ge-pnav-xddvmfte 1 tablet PO DAILY 08/04/23 08/04/23 phenazopyridine 100 mg tablet 100 mg PO TID PRN urinary pain 08/04/23 08/04/23 relief venlafaxine 150 mg 150 mg PO DAILY 08/04/23 08/04/23 capsule,extended release 24 hr <Sunita Noble PA-C - Last Filed: 09/08/23 01:27> Allergies/Adverse Reactions: Allergies Allergy/AdvReac Type Severity Reaction Status Date / Time Penicillins Allergy Severe Hives Verified 06/09/23 11:24 Sulfa (Sulfonamide Allergy Intermediate hives Verified 06/09/23 11:24 Antibiotics) morphine AdvReac Intermediate Hallucinati Verified 06/09/23 11:24 ng bumetanide AdvReac Nausea Verified 06/09/23 11:24 <Sunita Noble PA-C - Last Filed: 09/08/23 01:27> Review of Systems Review of Systems: CONSTITUTIONAL: Denies fever, chills, or sweats. MUSCULOSKELETAL: See HPI NEUROLOGIC: Denies headache, dizziness, numbness, or weakness. <Sunita Noble PA-C - Last Filed: 09/08/23 01:27> All systems reviewed & are unremarkable except as noted in HPI and below <Sunita Noble PA-C - Last Filed: 09/08/23 01:27> [facility] Past Medical History Medical History: Medical History Afib patient had wactchman placed for a. fib approximately 2 yrs ago Choking Chronic a-fib Chronic pain disorder CKD (chronic kidney disease), stage III Essential (primary) hypertension Fatigue Fracture of knee prosthesis History of blood transfusion History of brain tumor History of DVT (deep vein thrombosis) HLD (hyperlipidemia) Hoarseness of voice HTN (hypertension) Hypertension Hypothyroidism (acquired) Hypothyroidism, unspecified Lumbar spondylosis Major depressive disorder, single episode, unspecified Minor head injury without loss of consciousness Numbness and tingling in left hand Obesity Other fracture of right femur, initial encounter for closed fracture PAD (peripheral artery disease) Unspecified injury of head, sequela <Sunita Noble
[2023-09-07 19:55] VITALS: BP 127/64; PULSE 64; RESP 15; O2SAT 96
[2023-09-07] MEDS: traMADol HCL (*CRX) 50 MG TABLET PO (21:55)
[2023-09-07 22:51] VITALS: BP 136/67; PULSE 63; RESP 15; O2SAT 96
== END 2023-09-07 23:12 ==
PROVIDERS: Emergency Provider Physician Assistant; PCP Emergency Medicine
DX: S52.511A Displaced fracture of right radial styloid process, initial encounter for closed fracture (principal); S52.611A Displaced fracture of right ulna styloid process, initial encounter for closed fracture; I48.20 Chronic atrial fibrillation, unspecified; I12.9 Hypertensive chronic kidney disease with stage 1 through stage 4 chronic kidney disease, or unspecified chronic kidney disease; N18.30 Chronic kidney disease, stage 3 unspecified; I73.9 Peripheral vascular disease, unspecified; E89.0 Postprocedural hypothyroidism; E66.9 Obesity, unspecified; Z68.32 Body mass index [BMI] 32.0-32.9, adult; Z87.891 Personal history of nicotine dependence; Z86.718 Personal history of other venous thrombosis and embolism; Z96.649 Presence of unspecified artificial hip joint; Z96.659 Presence of unspecified artificial knee joint; W01.0XXA Fall on same level from slipping, tripping and stumbling without subsequent striking against object, initial encounter
CPT/HCPCS: 25605; 25624; 73100; 73110; 99285; A4565; A9270

== ENCOUNTER 2023-09-19 18:08 | Inpatient (IN) | payer MEDICARE, SELFPAY ==
[2023-09-19] VITALS (29 sets, daily range): BP systolic 92–164; BP diastolic 48–99; PULSE 74–97; RESP 16–37; TEMP 37.1–37.3; O2SAT 90–100
--- NOTE | ~2023-09-19 | XR_ITS ---
EXAM: XR abdomen obstructive series DATE: 09/27/2023 12:45 HISTORY: abd pain . COMPARISON: X-ray chest 09/22/2023 CT abdomen pelvis 09/19/2023. FINDINGS: Scattered reticular and subsegmental right basilar opacities. Atrial occlusion device. Loo p recorder. IVC filter. Normal bowel gas pattern. Multilevel vertebroplasty cement. Degenerative clement ges in the spine. Pelvic phleboliths. Partially visualized right hip and femoral hardware IMPRESSION: No radiographic evidence of obstruction or ileus. Reviewed, dictated and finalized at location K. EMATIC THEOLOGY PROFESSOR
--- NOTE | ~2023-09-19 | NM_ITS ---
EXAMINATION: NM hepatobiliary wo pharm DATE: 09/21/2023 16:18 INDICATION: Abdominal pain. COMPARISON: CT 09/19/2023, abdomen ultrasound 09/20/2023 TECHNIQUE: 5.0 mCi Tc-99m mebrofenin (Choletec) was administered intravenously. Scintigraphic images of the abdomen were obtained for one hour. Delayed images were obtained at 4 hours. FINDINGS: There is delayed clearance of radiotracer from the blood pool. There is homogeneous tracer uptake by the liver. At 4 hours, all of the activity is in the liver. The common duct was normal in marcus lomeli on 09/20/2023. IMPRESSION: 1. Retention of activity in the liver, consistent with severe hepatocellular dysfunction. 2. The gallbladder cannot be evaluated due to liver retention of activity. Reviewed, dictated and finalized at location A. ECTRIC PRESS OPERATOR IMPRESSION: 1. Retention of activity in the liver, consistent with severe hepatocellular d ysfunction. 2. The gallbladder cannot be evaluated due to liver retention of activity.
--- NOTE | ~2023-09-19 | US_ITS ---
EXAMINATION: US renal BI DATE: 09/27/2023 12:26 INDICATION: CHA TECHNIQUE: Multiple grayscale and Doppler ultrasound images of the kidneys were obtained. COMPARISON: CTA cap, 09/19/2023. FINDINGS: The right kidney measures 8.5 x 4.1 x 6.2 cm. The left kidney measures 9.8 x 5.2 x 6.1 cm. The kidney s demonstrate normal parenchymal echogenicity. There is no hydronephrosis. The bladder contains a 5 m m echogenic focus along the dependent wall. IMPRESSION: Echogenic focus in the bladder, may represent calcification, clot or other debris, a small bladder ma ss is not excluded. Correlate with urinalysis. Consider referral for cystoscopy. Otherwise, unremarkable renal sonogram findings. Reviewed, dictated and finalized at location K. FARM WORKERS IMPRESSION: Echogenic focus in the bladder, may represent calcification, clot or other debr is, a small bladder mass is not excluded. Correlate with urinalysis. Consider r eferral for cystoscopy. Otherwise, unremarkable renal sonogram findings.
--- NOTE | ~2023-09-19 | XR_ITS ---
EXAMINATION: XR chest 1V portable Exam Date/Time: 09/22/2023 14:55 HEALTH CARE COACH HISTORY: Shortness of breath Comparison: 09/19/2023; CTA cap 2724. RESULT: Lines, tubes, and devices: Surgical clips over the lower neck. Multilevel vertebroplasty cement. Loop recorder. Atrial occlusion device. IVC filter. Lungs and pleura: Increased now moderate diffuse reticular opacities. Subsegmental right basilar opa cities. Mild right costophrenic angle blunting. Cardiomediastinal silhouette: Stable. Other: No acute osseous or upper abdominal finding. IMPRESSION: Worsening interstitial edema. Subsegmental right basilar atelectasis/consolidation. Small right pleur al effusion. Reviewed, dictated and finalized at location K. TH CARE COACH IMPRESSION: Worsening interstitial edema. Subsegmental right basilar atelectasis/consolidat ion. Small right pleural effusion.
--- NOTE | ~2023-09-19 | CT_ITS ---
EXAMINATION: CT brain wo con DATE: 09/20/2023 06:00 ADMISSIONS OFFICER INDICATION: Altered mental status TECHNIQUE: Computed tomographic angiography (CTA) of the head was performed without and with 100 mL O mnipaque-350 intravenous contrast. The dose-length product was 681.00 mGy-cm. Volume-rendered and max imum intensity projection 3D reconstructions of the intracranial arteries were created by the technkristin child on a separate workstation. COMPARISON: CT dated 08/04/2023. FINDINGS: There are changes of prior right parietal-occipital lobe craniotomy with underlying encepha lomalacia next vacuo dilation of the lateral ventricle. There is right parietal dural calcification w hich may reflect chronic reactive change versus meningioma. No acute intracranial hemorrhage, infarct ion, mass or mass effect. No midline shift. There are scattered mild periventricular and subcortical white matter changes, most likely related to small vessel ischemic disease (microangiopathy). IMPRESSION: 1. No acute intracranial abnormality. No significant change. Reviewed, dictated and finalized at location A. SSIONS OFFICER
--- NOTE | ~2023-09-19 | XR_ITS ---
EXAMINATION: XR chest 1V Exam Date/Time: 09/19/2023 19:45 ENVIRONMENTAL MANAGER HISTORY: dyspnea Comparison: 08/04/2023. RESULT: Lines, tubes, and devices: Surgical clips over the lower neck. Loop recorder. IVC filter. Atrial occ lusion device. Multilevel vertebroplasty cement. Lungs and pleura: Rightward rotation. Diffuse reticular opacities with indistinct vessels and patchy areas of groundglass opacity. Cardiomediastinal silhouette: Stable. Other: No acute osseous or upper abdominal finding. IMPRESSION: Moderate pulmonary edema. Infection is not excluded. Reviewed, dictated and finalized at location K. RONMENTAL MANAGER
--- NOTE | ~2023-09-19 | US_ITS ---
EXAMINATION:US venous doppler LE BI INDICATION:Leg edema TECHNIQUE: Multiple grayscale, color flow and Doppler images of the right and left lower extremity de ep venous systems were obtained and reviewed. COMPARISON:Ultrasound dated 08/04/2023 FINDINGS: The common femoral, superficial femoral and popliteal veins demonstrate normal respiratory variation, augmentation and compressibility. Color flow is also seen within the posterior tibial, pe roneal, greater saphenous and profunda veins. IMPRESSION: 1: No lower extremity deep venous thrombosis. Reviewed, dictated and finalized at location A. Y UNION FOOTBALLER
--- NOTE | ~2023-09-19 | CT_ITS ---
EXAMINATION: CTA chest abdomen pelvis DATE: 09/20/2023 08:07 GUEST RELATIONS REPRESENTATIVE INDICATION: Pulmonary edema. Chest pain. TECHNIQUE: Computed tomographic angiography (CTA) of the chest, abdomen, and pelvis was performed wit hout and with 100 mL Omnipaque-350 intravenous contrast. The dose-length product was 1162.12 mGy-cm. Maximum intensity projection 3D-reconstructions of the aorta and other arteries were constructed by sam hoover technologist on a separate workstation. COMPARISON: CT dated 04/29/2023. FINDINGS: CHEST CTA: Heart size normal. Large hiatal hernia. No evidence for aortic aneurysm or dissection. Enlarged pulmo nary arteries consistent with pulmonary hypertension. No central pulmonary embolism. Dependent atelec tasis. There are groundglass opacities scattered throughout both lungs much may reflect mild edema. T here is a chronic fracture deformity of T9 with distraction of the vertebral fragments measuring 7 mm . There are chronic fracture deformities of T12 and L1 treated with vertebroplasty. There is severe t horacic and lumbar spondylosis. There is grade 1 spondylolisthesis at L5-S1. ABDOMEN AND PELVIS CTA: Gallbladder is moderately distended. There is hepatosplenomegaly. No evidence for aortic aneurysm or dissection. There is stenosis of the origin of the celiac axis. The superior and inferior mesenteric arteries are patent. Renal arteries are widely patent. There is an IVC filter present. The kidneys an d adrenal glands are unremarkable. Moderate colonic fecal loading. No free air or free fluid. There a re gallstones. IMPRESSION: 1. Pulmonary arterial hypertension. No evidence for pulmonary embolism. 2: Scattered groundglass of opacities of the lungs, suspicious for mild edema. 3: Hepatosplenomegaly. 4: Cholelithiasis. Reviewed, dictated and finalized at location A. T RELATIONS REPRESENTATIVE
--- NOTE | ~2023-09-19 | US_ITS ---
US right upper quadrant INDICATION: Elevated liver enzymes PROCEDURE: Realtime right upper abdominal ultrasound. COMPARISON: CT dated 09/19/2023 FINDINGS: The pancreas is normal without focal mass or pancreatic ductal dilation. Liver echotexture is normal without focal mass or intrahepatic biliary dilatation. There is normal directional flow i n the portal vein. There are gallstones. There is gallbladder wall thickening. Common bile duct measures 5 mm. No sonog raphic Pastrana's sign. IMPRESSION: 1: Cholelithiasis with gallbladder wall thickening. Consider cholecystitis in the appropriate clinica l setting. Reviewed, dictated and finalized at location A. CTOR IMPRESSION: 1: Cholelithiasis with gallbladder wall thickening. Consider cholecystitis in t he appropriate clinical setting.
--- NOTE | 2023-09-19 18:18 | ECG_ITS ---
Measurements Intervals [place] Rate: 98 P: 94 CO: 236 QRS: 55 QRSD: 121 T: 65 QT: 309 QTc: 396 Interpretive Statements SINUS RHYTHM WITH FIRST DEGREE AV BLOCK VENTRICULAR PREMATURE COMPLEX INTRAVENTRICULAR CONDUCTION DELAY BORDERLINE ST-T WAVE ABNORMALITY- DIFFUSE LEADS BASELINE ARTIFACT- I, II, III, AVR, AVL, AVF, V1-V6 BORDERLINE ECG COMPARED TO ECG 08/04/2023 08:32:48 ST (T WAVE) DEVIATION NOW PRESENT Electronically Signed On 09-19-2023 19:30:39 BELT LINE FEEDER by Yazan Mehta D.O.
--- NOTE | 2023-09-19 18:27 | ED.GENADULT ---
HPI - General Adult General Chief complaint: Abdominal Pain <Tamica Feliz PA-C - Last Filed: 09/20/23 13:25> Stated complaint: abd pain <Tamica Feliz PA-C - Last Filed: 09/20/23 13:25> Time Seen by Provider: 09/19/23 18:30 <Tamica Feliz PA-C - Last Filed: 09/20/23 13:25> Focused HPI: 88 y/o F with a recent dx of DVT, chronic anticoagulation with eliquis, COPD, a-fib, CKD, HLD, HTN reports via EMS for evaluation for dyspnea starting today. Pt was placed on NC en route. She is satting 94% on room air in triage. She is reporting increased BLE. Denies chest pain, cough, congestion, current abdominal pain, dysuria, hematuria, fever. Her R arm is in a cast for recent radial styloid fx GENERAL: Well-appearing, well-nourished, and in no acute distress. HEAD: Normocephalic, atraumatic. CHEST: Decreased breath sounds throughout. Extremities: BLE, noninfected stage 2 ulceration to R lower extremity. Blanching warmth and erythema to BLE. RUE in cast, cap refill <2, sensation intact. HEART: Regular rate and rhythm.? NEURO: ?Alert and oriented x3. Patient screened in triage and initial orders placed.? ?Additional care and disposition to be based upon?diagnostic testing and treatment. <Tamica Feliz PA-C - Last Filed: 09/20/23 13:25> Source: patient <Kingsley Salinas PA-C - Last Filed: 09/20/23 03:21> Mode of arrival: EMS <Kingsley Salinas PA-C - Last Filed: 09/20/23 03:21> Limitations: no limitations <PAMELA Ashley Last Filed: 09/20/23 03:21> History of Present Illness HPI narrative: This is a 88-year-old female With PMH of AFib,CHF, HLD, HTN, s/p defibrillator placement who presents to the ED with chief complaint of dyspnea x2 days. Also has bilateral lower extremity edema. Family member is here and supplementing history. Reports that she has been rehab center for weakness and a recent right wrist fracture. They were concerned that her bilateral lower extremity edema is increasing despite taking her normal dose of Lasix. on arrival she is hypoxic on room air require oxygen which is not normal for her. Patient states that she has felt short of breath especially when lying flat. Endorses some cough but not much. There was some question of right-sided chest and upper abdominal pain earlier today but patient states these things have resolved. <Kingsley Salinas PA-C - Last Filed: 09/20/23 03:21> Related Data Home medications: Home Medications Medication Instructions Recorded Confirmed aspirin 325 mg tablet 325 mg PO DAILY 08/06/19 09/20/23 gabapentin 100 mg capsule 100 mg PO TID 08/13/21 09/20/23 ropinirole 4 mg tablet 4 mg PO BID 04/28/23 09/20/23 metolazone 5 mg tablet 5 mg PO DAILY 04/29/23 09/20/23 ascorbic acid (vitamin C) 500 mg 500 mg PO DAILY 08/04/23 09/20/23 tablet multivitamin,qa-mqjo-iqxwress 1 tablet PO DAILY 08/04/23 09/20/23 phenazopyridine 100 mg tablet 100 mg PO TID PRN urinary pain 08/04/23 09/20/23 relief venlafaxine 150 mg 150 mg PO DAILY 08/04/23 09/20/23 capsule,extended release 24 hr acetaminophen 325 mg tablet 650 mg PO ONCE PRN Pain (Scale 09/20/23 09/20/23 Score 1-3) albuterol sulfate 90 mcg/actuation 2 puff inhalation Q4H PRN 09/20/23 09/20/23 aerosol inhaler (Ventolin HFA) Shortness Of Breath Or Wheezing bisacodyl 10 mg rectal suppository 10 mg RECTAL DAILY PRN Constipation 09/20/23 09/20/23 ferrous sulfate 325 mg (65 mg 325 mg PO DAILY 09/20/23 09/20/23 iron) tablet hydrocodone 10 mg-acetaminophen 1 tablet PO Q6H PRN Pain 09/20/23 09/20/23 325 mg tablet magnesium hydroxide 400 mg/5 mL 30 ml PO HS PRN Constipation 09/20/23 09/20/23 oral suspension (Milk of Magnesia) nystatin 100,000 unit/gram topical 1 applic topical DAILY 09/20/23 09/20/23 powder polyvinyl alcohol-povidone (PF) 2 drp EACH EYE QID PRN Dry Eyes 09/20/23 09/20/23 1.4 %-0.6 % eye drops in a dropperette (Refresh Classic (PF)) potassium chlorid
[2023-09-19 22:09] LABS: Basophils Percent Auto 0.3 % (0.2-1.2); Hemoglobin 10.7 g/dL (12.0-15.0); Immature Granulocyte Absolute 0.01 K/mm3 (0.00-0.031); Immature Granulocyte Percent A 0.3 % (0-0.5); Lymphocytes Absolute Auto 0.09 K/mm3 (0.9-3.2); Lymphocytes Percent Auto 2.6 % (18.3-44.2); Mean Corpuscular HGB Conc 31.5 g/dl (32-36); Mean Corpuscular Hemoglobin 30.5 pg (26-34); Mean Corpuscular Volume 96.9 fl (80-100); Monocytes Absolute Auto 0.2 K/mm3 (0.1-0.6); Monocytes Percent Auto 5.3 % (2.6-8.5); Neutrophils Absolute Auto 3.1 K/mm3 (1.3-6.7); Neutrophils Percent Auto 91.5 % (45.5-73.1); Platelet Count Result 156 k/mm3 (150-375); Red Blood Count 3.51 M/mm3 (4.2-5.4); Red Cell Distribution Width 15.6 % (11.5-14.5); White Blood Count 3.4 K/mm3 (4.5-10.0)
[2023-09-19 22:19] LABS: Alanine Aminotransferase 325 U/L (6-35); Albumin Level 3.5 g/dL (3.5-5.1); Alkaline Phosphatase 467 U/L (38-126); Anion Gap 6 mmol/L (8-16); Aspartate Amino Transferase 545 U/L (14-36); Blood Urea Nitrogen 28 mg/dL (7-17); Calcium 9.1 mg/dL (8.4-10.2); Carbon Dioxide 37 mmol/L (22-30); Chloride 96 mmol/L (98-107); Estimated CRCL calculation 40 ml/min; Estimated Glomerular Filt Rate 53; Glucose 106 mg/dL (65-110); Lactic Acid Reflex 1.8 mmol/L (0.7-2.0); Magnesium 1.6 mg/dL (1.6-2.3); Potassium 3.4 mmol/L (3.4-5.0); Sodium 139 mmol/L (137-145)
[2023-09-19 22:20] LABS: Partial Thromboplastin Time 26.1 SECONDS (22.3-36.8)
[2023-09-19 22:34] LABS: D Dimer 3.59 ug/mL (<0.48)
[2023-09-19 22:39] LABS: Procalcitonin 9.6 ng/mL
[2023-09-19] MEDS: FUROSEMIDE INJ 40 MG/4 ML VIAL IV PUSH (22:47)
--- NOTE | 2023-09-19 22:48 | PC.NURSE ---
temporal spo2 monitor applied due to artificial nails not being able to brass pickler a good reading
[2023-09-19 22:49] LABS: Influenza A QL RT-PCR Negative (Negative); Influenza B QL RT-PCR Negative (Negative); RSV RNA, RT-PCR Negative (Negative); SARS-CoV-2 RNA PCR Negative (Negative)
[2023-09-19 22:56] LABS: Appearance Urine Clear (Clear); Bilirubin Urine 1+ (Negative); Blood Urine Negative (Negative); Color Urine Dark Yellow (Yellow); Glucose Urine UA Negative (Negative); Ketones Urine Negative (Negative); Leukocyte Esterase Ur Trace LEU/UL (Negative); Mucus Urine Present /lpf; Need Manual Microscopic Reviewed; Nitrate Urine Negative (Negative); Protein Urine Trace mg/dL (Negative); RBC Urine 0-2 /hpf (0-2); Specific Grav Ur 1.013 (1.001-1.035); Squamous Epithelial Cell Urine None seen /hpf (Few); WBC Urine 0-5 /hpf
[2023-09-19 22:58] LABS: NT Pro B Type Natriuretic Pept 2410 pg/mL (19.9-100); Troponin I 0.062 ng/mL (0.000-0.034)
[2023-09-19 23:00] LABS: Add Urine Microscopic? YES
[2023-09-19 23:02] LABS: Bacteria Urine 4+ /hpf
[2023-09-19] MEDS: AZITHROMYCIN 500 MG/NS 250 ML 500 MG/250 ML BAG 250 MG IVPB (23:51)
[2023-09-20] VITALS (30 sets, daily range): BP systolic 89–123; BP diastolic 39–65; PULSE 64–80; RESP 12–22; TEMP 36.7–39.3; O2SAT 93–100; BMI 32.7
[2023-09-20] MEDS: SODIUM CHLORIDE 0.9% IV 500 ML 999 ML IV CONT (01:44)
--- NOTE | 2023-09-20 01:55 | PC.NURSE ---
care and report given to TYRELL Smith. all questions answered.
[2023-09-20 01:57] LABS: Troponin I 0.124 ng/mL (0.000-0.034)
[2023-09-20 02:12] LABS: Alveolar/Arterial O2 Gradient 122.1 mmHg; Base Excess ABG 7.6 mEq/l (+/-2.0); Fractional Inspired Oxygen 36 %; HCO3 ABG 32.2 mEq/l (22.0-26.0); Oxygen Content ABG 15.5 %vol (16.0-22.0); Oxygen Saturation ABG 96.6 % (95.0-100.0); Oxyhemoglobin 94.8 % THb (90.0-100.0); PCO2 ABG 45.3 mmHg (35.0-45.0); PO2 FiO2 Ratio Arterial Blood 2.28 %; Total Hemoglobin 11.6 g/dL (12.0-18.0); pH ABG 7.469 (7.350-7.450)
[2023-09-20 02:17] LABS: Device NASAL CANNULA; Modified Allen's Test Pass; Site Drawn LEFT RADIAL
--- NOTE | 2023-09-20 02:49 | PM.IMHP ---
H&P: HPI History of Present Illness Date/Time: 09/20/23 02:49 Chief Complaint: Shortness of breath/leg swelling Narrative: Patient was brought to the ER by family member for evaluation of shortness of breath has been going on for 2 days, she does have history of hypertension, AFib for which she is greatly anticoagulated, and COPD. She was recently discharged from rehab for right wrist fracture. Family noticed that bilateral lower extremity swelling has worsened, and subsequently she developed shortness of breath. She is requiring nasal oxygen to keep saturation above 90% which is not usual for her. Family denies fever cough congestion. Per ED documentation, abdominal pain was reported but pain is said to have resolved. We was tachypneic hypotensive on arrival requiring 4 L of oxygen to maintain saturation above 95-100%, she could not tolerate BiPAP, she was provided with 40 mg of IV furosemide. She has white count of 3.4, elevated BUN/Cr and liver enzymes, troponin is trending up gradually, CXR and CTA chest/Abd/pelvis - pulmonary edema, chest infiltrates and liver cirrhosis. She was provided with rocephin and azithromycin in the ED. CT scan of the head result is pending, UA not suggestive of UTI. Per ED provider report, Patient is DNR/DNI and family are okay with medical management. During my encounter, patient opens eye to voice and touch but appears weak and sleepy, she is also hypotensive, she is getting saline bolus with last bp of 94/56. Admission request was made for further management Review of Systems Review of Systems: All systems reviewed & are unremarkable except as noted in HPI and below PMFSH Past Medical History Medical History Afib patient had wactchman placed for a. fib approximately 2 yrs ago Choking Chronic a-fib Chronic pain disorder CKD (chronic kidney disease), stage III Essential (primary) hypertension Fatigue Fracture of knee prosthesis History of blood transfusion History of brain tumor History of DVT (deep vein thrombosis) HLD (hyperlipidemia) Hoarseness of voice HTN (hypertension) Hypertension Hypothyroidism (acquired) Hypothyroidism, unspecified Lumbar spondylosis Major depressive disorder, single episode, unspecified Minor head injury without loss of consciousness Numbness and tingling in left hand Obesity Other fracture of right femur, initial encounter for closed fracture PAD (peripheral artery disease) Unspecified injury of head, sequela Surgical History Surgical History Brain tumor (benign) excised H/O thyroidectomy History of appendectomy History of back surgery History of hip replacement History of knee replacement History of repair of ruptured globe Hx of right inguinal hernia repair 06/11/22 Hx of tonsillectomy Family History Family History Sibling Family history of multiple sclerosis, Onset Age: 43 Father Acute myocardial infarction Mother , age 60 Heart disease Acute myocardial infarction Social History Social History Smoking packs per day: 0.25 Smoking cigarettes per day: 5.0 Years smoked: 15 Smoking pack-years: 3.75 Smoking status: Former smoker Second hand tobacco smoke exposure: No Additional smoking assessment comments: UNABLE TO RECALL SMOKING DETAILS - QUIT LATE Alcohol intake: current Drinks per week: 1 Alcohol use details: STATES MAYBE 2/MONTH Substance use: never Substance use type: does not use Current Housing: Decline to Answer Concerned About Future Housing: Decline to Answer Difficulty Paying Gas/Electric Bills: Decline to Answer Difficulty Paying for Meds: Decline to Answer Currently Unemployed: Decline to Answer Education: Decline to Answer Difficult
[2023-09-20] MEDS: ACETAMINOPHEN 325 MG TABLET 650 MG PO (03:56)
[2023-09-20] MEDS: SODIUM CHLORIDE 0.9% IV 1,000 ML 75 ML IV CONT (04:27)
[2023-09-20] MEDS: SODIUM CHLORIDE 0.9% IV 1,000 ML 999 ML IV CONT (04:44)
--- NOTE | 2023-09-20 04:47 | PC.NURSE ---
Spoke with daughter Patrizia and discussed current condition of patient and possible need for blood pressure supporting medications. Daughter Patrizia consents to central line for vasopressors and states she consented to line when called from the ER as well. Patrizia is aware that if a central line is deemed necessary the patient will transfer to the ICU.
[2023-09-20 05:01] LABS: Basophils Percent Auto 0.5 % (0.2-1.2); Eosinophils Absolute Auto 0.1 K/mm3 (0-0.3); Eosinophils Percent Auto 1.6 % (0-4.4); Hematocrit 31.5 % (37.0-47.0); Hemoglobin 9.8 g/dL (12.0-15.0); Immature Granulocyte Absolute 0.06 K/mm3 (0.00-0.031); Immature Granulocyte Percent A 0.7 % (0-0.5); Lymphocytes Absolute Auto 0.15 K/mm3 (0.9-3.2); Lymphocytes Percent Auto 1.8 % (18.3-44.2); Mean Corpuscular HGB Conc 31.1 g/dl (32-36); Mean Corpuscular Hemoglobin 30.6 pg (26-34); Mean Corpuscular Volume 98.4 fl (80-100); Mean Platelet Volume 9.7 fl (7.4-10.4); Monocytes Absolute Auto 0.7 K/mm3 (0.1-0.6); Neutrophils Absolute Auto 7.1 K/mm3 (1.3-6.7); Neutrophils Percent Auto 86.4 % (45.5-73.1); Platelet Count Result 136 k/mm3 (150-375); Red Cell Distribution Width 15.9 % (11.5-14.5); White Blood Count 8.3 K/mm3 (4.5-10.0)
[2023-09-20 05:18] LABS: Alanine Aminotransferase 339 U/L (6-35); Albumin Level 3.3 g/dL (3.5-5.1); Alkaline Phosphatase 352 U/L (38-126); Anion Gap 7 mmol/L (8-16); Aspartate Amino Transferase 491 U/L (14-36); Bilirubin,Total 3.9 mg/dL (0.2-1.3); Blood Urea Nitrogen 31 mg/dL (7-17); Calcium 8.8 mg/dL (8.4-10.2); Carbon Dioxide 36 mmol/L (22-30); Chloride 97 mmol/L (98-107); Estimated CRCL calculation 29 ml/min; Estimated Glomerular Filt Rate 36; Glucose 89 mg/dL (65-110); Potassium 3.4 mmol/L (3.4-5.0); Sodium 140 mmol/L (137-145)
--- NOTE | 2023-09-20 05:20 | PHAR ---
OK TO CHANGE CEFEPIME 2 GM TO Q12HR DOSING FOR CRCL 40 ML/MIN
[2023-09-20 05:21] LABS: Ammonia 21 umol/L (9-30)
[2023-09-20] MEDS: VANCOMYCIN 1,250 MG/NS 250 ML 1,250 MG/250 ML BAG 166.67 MG IVPB (05:30)
[2023-09-20] MEDS: levoFLOXacin 500 MG/D5W 100 ML 500 MG/100 ML BAG 100 MG IVPB (05:31)
[2023-09-20 05:32] LABS: Hypochromasia 1+ (NORMAL)
[2023-09-20 05:33] LABS: Anisocytosis 1+ (NORMAL); Schistocytes None Seen (NORMAL)
[2023-09-20 05:39] LABS: Troponin I 0.153 ng/mL (0.000-0.034)
[2023-09-20] MEDS: CEFEPIME 2 GM/NS 50 ML 2 GM/50 ML BAG IVPB ×2 (06:22→18:20)
[2023-09-20] MEDS: VANCOMYCIN 1,000 MG/NS 250 ML 1,000 MG/250 ML BAG 250 MG IVPB (06:33)
--- NOTE | 2023-09-20 08:48 | PM.CNCAR ---
Assessment and Plan Assessment and plan (1) Pulmonary edema: Qualifiers: Chronicity: acute Qualified Code(s): J81.0 - Acute pulmonary edema Code(s): J81.1 - Chronic pulmonary edema Status: Acute Assessment and Plan: Patient presents with shortness of breath, hypoxic respiratory failure requiring BiPAP support now weaned to O2. Chest x-ray and CT suggest mild pulmonary edema, however, patient more hypotensive after receiving IV Lasix with acute kidney injury. Therefore she was given IV fluid boluses started continues IV infusion. She was also started on IV antibiotics for suspected pneumonia. She is feeling much better at this time and denies shortness of breath. As such, I will hold Lasix for the time being particularly she is hypotensive. Will need to monitor volume status very closely however. Discontinue IV fluids if she is no longer hypotensive so as to avoid volume overload. Difficult balance in this regard. Wean O2 as tolerated. Continue cefepime, levofloxacin, and vancomycin per primary service. I have spent 82 minutes in the care of this patient at bedside including discussions with the patient, colleagues, review of medical records, documentation, and medical decision making that pertain to activities involving care alone. (2) CHA (acute kidney injury): Code(s): N17.9 - Acute kidney failure, unspecified Status: Acute Assessment and Plan: Acute kidney injury likely secondary to hypotension, IV Lasix and contrast load although injury pattern occurred much more quickly than that would be expected with a contrast induced nephropathy. Will need to continue to monitor renal function very closely nonetheless as she did receive a contrast load on top of general medical management. Monitor urine output and blood pressure very closely. Hold any antihypertensives for now. (3) Hypotension: Code(s): I95.9 - Hypotension, unspecified Status: Acute Assessment and Plan: Patient relatively hypotensive possible sepsis. Blood cultures pending. Continue IV antibiotics as above. Continue cautious IV fluid support. Continue telemetry. (4) Elevated liver enzymes: Code(s): R74.8 - Abnormal levels of other serum enzymes Status: Acute Assessment and Plan: Significant LFT elevations, workup per primary service. Consider ultrasound. Hepatitis screen pending. Hold atorvastatin, minimize nephrotoxic agents. Continue to monitor LFTs very closely on a serial basis. Monitor coagulation studies. (5) Afib: Qualifiers: Atrial fibrillation type: paroxysmal Qualified Code(s): I48.0 - Paroxysmal atrial fibrillation Code(s): I48.91 - Unspecified atrial fibrillation Status: Acute Assessment and Plan: Maintaining sinus rhythm, intermittent pacing on telemetry. She is not a candidate for anticoagulation given history of falls, head injury nor does required given history of left atrial appendage occlusion device. (6) PAD (peripheral artery disease): Code(s): I73.9 - Peripheral vascular disease, unspecified Status: Acute Assessment and Plan: Stable. Hold atorvastatin given significant LFT abnormalities. (7) History of left atrial appendage closure: Code(s): Z98.890 - Other specified postprocedural states Status: Acute Assessment and Plan: As above, no indication for anticoagulation. (8) Pacemaker: Code(s): Z95.0 - Presence of cardiac pacemaker Status: Acute Assessment and Plan: Normal device function, she has a Micra device by CXR. (9) Recurrent falls: Code(s): R29.6 - Repeated falls Status: Acute Assessment and Plan: Anticoagulation contraindicated. History of Present Illness History of Present Illness Consult date/time: Date of service: 09/20/23 08:48 Requesting physician: Edwina Manley MD Consult reason: Other (Pulmonary edema) Reason For V
[2023-09-20 09:12] LABS: Troponin I 0.138 ng/mL (0.000-0.034)
--- NOTE | 2023-09-20 09:15 | PM.IMPN ---
Progress Note: A&P Assessment and Plan (1) Acute hypoxemic respiratory failure: Code(s): J96.01 - Acute respiratory failure with hypoxia Status: Acute (2) Pulmonary edema: Qualifiers: Chronicity: acute Qualified Code(s): J81.0 - Acute pulmonary edema Code(s): J81.1 - Chronic pulmonary edema Status: Acute (3) Pneumonia: Code(s): J18.9 - Pneumonia, unspecified organism Status: Acute (4) Liver cirrhosis: Code(s): K74.60 - Unspecified cirrhosis of liver Status: Acute (5) Elevated liver enzymes: Code(s): R74.8 - Abnormal levels of other serum enzymes Status: Acute (6) CHA (acute kidney injury): Code(s): N17.9 - Acute kidney failure, unspecified Status: Acute Plan 88-year-old female presented with shortness of breath over past 2 days. Reported bilateral lower extremity edema. Comes from rehab center for weakness and recent right wrist fracture has been on Lasix regular basis. Arrival to the ER she was noted to be hypoxic on room air and required oxygen supplementation via nasal cannula. Orthopnea present mild cough some right-sided chest pain and abdominal pain. On chronic anticoagulation with Eliquis underlying COPD paroxysmal atrial fibrillation recent history of DVT chronic kidney disease hyperlipidemia hypertension. Hypothyroidism anxiety depression peripheral artery disease former smoker patient DNR DNI blood pressure borderline was afebrile EKG without acute ST-T changes. Viral swabs were negative. CBC showed WBC of 3.4 elevated BUN bicarbonate LFTs are all elevated above baseline with a bilirubin of 3 which is new. Initial troponin 0.062 followed by 0.124 BNP elevated at 2410. Chest x-ray showed moderate pulmonary edema. Infection not excluded. CT chest abdomen pelvis was done which showed normal caliber aorta without dissection mild pulmonary edema and scattered areas of atelectasis and pleural scarring. Enlarged main pulmonary artery with cardiomegaly. Suspected cirrhosis with cirrhotic hepatic morphology and volume distribution. Elevated LFTs suspected related to volume overload and CHF and hepatic congestion. She was initially required BiPAP in the ER with improvement in her tachypnea received some Lasix metabolic alkalosis likely chronic due to her underlying chronic COPD D-dimer was elevated at 3.59 AST 545 ALT 325 ALP 467 UA is negative for infection ABG 7.469/45/82. Cardiology has been consulted GI has been also consulted for elevated liver enzymes. She has been started on cefepime and vancomycin and levofloxacin also getting diuresed with Lasix 40 mg daily. Mild anemia with no signs of bleeding mild thrombocytopenia which seems to be chronic. Creatinine bumped up today 1.4 creatinine was 1 and baseline being 0.5-[address] was negative. Continue gentle hydration and the IV diuresis this time. Looks volume depleted. Will give for volume and also will help some with edema CTA with scattered ground-glass opacities of the lungs suspicious with mild edema been covered for pneumonia with IV antibiotics. Blood cultures been obtained which is pending. Will check MRSA nares. If negative will stop vancomycin IV procalcitonin checked was high at 9.6. Will check ultrasound right upper quadrant ammonia level was normal BNP seems chronically elevated but higher than her baseline. Lactate was normal at 1.8. Hold atorvastatin due to elevated liver enzymes continue Keppra levothyroxine check hepatitis profile. 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
[2023-09-20 09:59] LABS: Acetaminophen < 10 ug/mL (10-30)
[2023-09-20] MEDS: PANTOPRAZOLE 40 MG TABLET PO (10:51)
[2023-09-20] MEDS: HYDROcodone/acetaminophen (*CRX) 10-325 MG TABLET 1 TAB PO (10:51)
[2023-09-20] MEDS: ASCORBIC ACID 500 MG TABLET PO (10:53)
[2023-09-20] MEDS: ASPIRIN 325 MG TABLET PO (10:53)
[2023-09-20] MEDS: VENLAFAXINE HCL XR 75 MG CAP.ER.24H 150 MG PO (10:53)
[2023-09-20] MEDS: FERROUS SULFATE 325 MG TABLET DR PO (10:53)
[2023-09-20] MEDS: TOLNAFTATE 1% POWDER 45 GM BTL 1 APPLIC TOPICAL (10:54)
[2023-09-20] MEDS: levETIRAcetam 500 MG TABLET PO ×2 (10:54→21:36)
[2023-09-20 11:02] LABS: Hepatitis B Surface Antigen Negative (Negative)
[2023-09-20 11:08] LABS: HAV RESULT Negative (Negative); Hepatitis B Core IgM Result Negative (Negative)
[2023-09-20 11:20] LABS: Hepatitis C Virus Antibody Negative (Negative)
[2023-09-20] MEDS: GABAPENTIN 100 MG CAPSULE PO (16:48)
[2023-09-20] MEDS: rOPINIRole HCL 1 MG TABLET 4 MG PO (16:48)
[2023-09-20] MEDS: metroNIDAZOLE 500 MG/ISO 100ML 500 MG/100 ML BAG 100 MG IVPB ×2 (16:49→23:30)
[2023-09-20] MEDS: ALBUMIN HUMAN 25% 25 GM/100 ML 100 ML IVPB (17:02)
[2023-09-20 21:29] LABS: MRSA (PCR) DETECTED (NOT DETECTE)
[2023-09-21] VITALS (20 sets, daily range): BP systolic 112–142; BP diastolic 52–63; PULSE 65–82; RESP 16–22; TEMP 36.4–36.9; O2SAT 92–99
--- NOTE | 2023-09-21 | ECHO_ITS ---
Patient Info Name: Zohreh Oakes Age: 88 years : 1935 Gender: Female Ht: 65 in Wt: 197 lbs BSA: 2.06 m2 HR: 80 bpm BP: 112 / 53 mmHg Heart Rhythm: Sinus Rhythm Technical Quality: Good Exam Date: 09/21/2023 8:46 AM Exam Location: Echo Lab Patient Status: Outpatient Admit Date: 09/20/2023 Staff Ordering Physician: Rich Lux MD Attending Provider: Edwina Manley MD Exam Type: CA echo doppler color flow Study Info Indications I50.20 - Unspecified systolic (congestive) heart failure Complete two-dimensional, color flow and Doppler transthoracic echocardiogram is performed. Summary 1. Complete two-dimensional, color flow and Doppler transthoracic echocardiogram is performed. 2. Left ventricular chamber dimension is normal. 3. Left ventricular systolic function is normal, estimated at 65-70%. 4. There is moderately increased left ventricular wall thickness. 5. Left ventricular septal wall motion is abnormal with septal motion related to bundle branch block. 6. The left ventricular diastolic function is grade II diastolic dysfunction. 7. Left atrial chamber dimension is moderately enlarged. 8. Right atrial chamber dimension is moderately enlarged. 9. There is no aortic valve stenosis. 10. There is mild mitral valve regurgitation. 11. There is moderate tricuspid valve regurgitation. 12. Severe pulmonary hypertension, estimated pulmonary arterial systolic pressure is 66 mmHg. Left Ventricle Left ventricular chamber dimension is normal. Left ventricular systolic function is normal, estimated at 65-70%. There is moderately increased left ventricular wall thickness. Left ventricular septal wall motion is abnormal with septal motion related to bundle branch block. The left ventricular diastolic function is grade II diastolic dysfunction. Right Ventricle Right ventricular chamber dimension is mildly enlarged. Right ventricular systolic function is normal. Left Atria Left atrial chamber dimension is moderately enlarged. Right Atria Right atrial chamber dimension is moderately enlarged. Aortic Valve The aortic valve is not well visualized. There is mild aortic valve sclerosis. There is no aortic valve stenosis. There is mild aortic valve regurgitation. Pulmonic Valve The pulmonic valve is not well visualized. There is mild pulmonic regurgitation. Mitral Valve The mitral valve has thickened leaflets. There is mild mitral valve regurgitation. The mitral valve annulus is mildly calcified. Tricuspid Valve The tricuspid valve leaflets are normal. There is moderate tricuspid valve regurgitation. Severe pulmonary hypertension, estimated pulmonary arterial systolic pressure is 66 mmHg. Pericardium/Pleural The pericardium appears normal. There is no pericardial effusion. Inferior Vena Cava Dilated inferior vena cava with >50% collapse upon inspiration consistent with elevated right atrial pressure, 10 mmHg. Aorta The aortic root size at the sinus of Valsalva is normal. Left Ventricular Outflow Tract Name Value Normal LVOT 2D LVOT Diameter 2.0 cm LVOT Doppler LVOT Peak Gradient 6 mmHg LVOT Mean Gradient 4 mmHg LVOT VTI
[2023-09-21] MEDS: ALBUMIN HUMAN 25% 25 GM/100 ML 100 ML IVPB ×4 (00:40→20:17)
[2023-09-21 05:16] LABS: Basophils Percent Auto 0.4 % (0.2-1.2); Eosinophils Percent Auto 0.6 % (0-4.4); Hematocrit 28.9 % (37.0-47.0); Hemoglobin 8.8 g/dL (12.0-15.0); Immature Granulocyte Absolute 0.08 K/mm3 (0.00-0.031); Immature Granulocyte Percent A 1.2 % (0-0.5); Immature Platelet Fraction Pct 4.8 % (0.9-11.2); Lymphocytes Absolute Auto 0.24 K/mm3 (0.9-3.2); Lymphocytes Percent Auto 3.5 % (18.3-44.2); Mean Corpuscular HGB Conc 30.4 g/dl (32-36); Mean Corpuscular Volume 98.6 fl (80-100); Mean Platelet Volume 10.4 fl (7.4-10.4); Monocytes Absolute Auto 0.5 K/mm3 (0.1-0.6); Monocytes Percent Auto 7.9 % (2.6-8.5); Neutrophils Absolute Auto 5.9 K/mm3 (1.3-6.7); Neutrophils Percent Auto 86.4 % (45.5-73.1); Platelet Count Result 106 k/mm3 (150-375); Red Blood Count 2.93 M/mm3 (4.2-5.4); Red Cell Distribution Width 16.5 % (11.5-14.5); White Blood Count 6.8 K/mm3 (4.5-10.0)
[2023-09-21 05:24] LABS: Alanine Aminotransferase 228 U/L (6-35); Albumin Level 3.5 g/dL (3.5-5.1); Alkaline Phosphatase 262 U/L (38-126); Anion Gap 10 mmol/L (8-16); Aspartate Amino Transferase 229 U/L (14-36); Bilirubin,Total 4.8 mg/dL (0.2-1.3); Blood Urea Nitrogen 44 mg/dL (7-17); Carbon Dioxide 30 mmol/L (22-30); Chloride 98 mmol/L (98-107); Estimated CRCL calculation 24 ml/min; Estimated Glomerular Filt Rate 28; Glucose 74 mg/dL (65-110); Magnesium 1.7 mg/dL (1.6-2.3); Sodium 138 mmol/L (137-145)
[2023-09-21] MEDS: LEVOTHYROXINE SODIUM 88 MCG TABLET PO (05:49)
[2023-09-21] MEDS: metroNIDAZOLE 500 MG/ISO 100ML 500 MG/100 ML BAG 100 MG IVPB ×3 (05:53→21:33)
[2023-09-21] MEDS: GABAPENTIN 100 MG CAPSULE PO ×3 (05:53→17:18)
[2023-09-21] MEDS: levoFLOXacin 500 MG/D5W 100 ML 500 MG/100 ML BAG 100 MG IVPB (05:55)
[2023-09-21 05:56] LABS: Anisocytosis 1+ (NORMAL); Burr Cells 1+ (NORMAL); Hypochromasia 1+ (NORMAL); Platelet Estimate Decreased (Adequate); Schistocytes None Seen (NORMAL)
[2023-09-21] MEDS: CEFEPIME 2 GM/NS 50 ML 2 GM/50 ML BAG IVPB (07:00)
[2023-09-21] MEDS: FERROUS SULFATE 325 MG TABLET DR PO (09:11)
[2023-09-21] MEDS: rOPINIRole HCL 1 MG TABLET 4 MG PO ×2 (09:11→17:18)
[2023-09-21] MEDS: PANTOPRAZOLE 40 MG TABLET PO (09:11)
[2023-09-21] MEDS: VENLAFAXINE HCL XR 75 MG CAP.ER.24H 150 MG PO (09:11)
[2023-09-21] MEDS: POTASSIUM CHLORIDE 20 MEQ ER TABLET PO (09:12)
[2023-09-21] MEDS: ASPIRIN 325 MG TABLET PO (09:12)
[2023-09-21] MEDS: THERAPEUTIC MULTIVITAMINS/MINERALS TAB (*BKC) 1 TABLET PO (09:12)
[2023-09-21] MEDS: levETIRAcetam 500 MG TABLET PO ×2 (09:12→20:22)
[2023-09-21] MEDS: ENOXAPARIN 30 MG/0.3 ML SYRINGE SUB-Q (09:12)
[2023-09-21] MEDS: TOLNAFTATE 1% POWDER 45 GM BTL 1 APPLIC TOPICAL (09:12)
[2023-09-21] MEDS: ASCORBIC ACID 500 MG TABLET PO (09:12)
--- NOTE | 2023-09-21 12:41 | PM.PNCARD ---
Progress Note: A&P Assessment and Plan (1) Pulmonary edema: Qualifiers: Chronicity: acute Qualified Code(s): J81.0 - Acute pulmonary edema Code(s): J81.1 - Chronic pulmonary edema Status: Acute Assessment and Plan: Patient presents with shortness of breath, hypoxic respiratory failure requiring BiPAP support now weaned to O2. Chest x-ray and CT suggest mild pulmonary edema, however, patient more hypotensive after receiving IV Lasix with acute kidney injury. Therefore she was given IV fluid boluses started continues IV infusion. She was also started on IV antibiotics for suspected pneumonia. It appears IV antibiotics have provided the most significant improvement along with supportive care. Lasix remains on hold IV fluids have been discontinued. She is receiving IV albumin. Review to continue monitor volume status very closely as she appears to be reasonably euvolemic. Wean O2 as tolerated. However, as an outpatient she was on Lasix and metolazone and anticipate she will require re-initiation. (2) CHA (acute kidney injury): Code(s): N17.9 - Acute kidney failure, unspecified Status: Acute Assessment and Plan: Acute kidney injury likely secondary to hypotension, IV Lasix and contrast load although injury pattern occurred much more quickly than that would be expected with a contrast induced nephropathy. Will need to continue to monitor renal function very closely nonetheless as she did receive a contrast load on top of general medical management. Monitor urine output and blood pressure very closely. Hold any antihypertensives for now. Renal function has worsened significantly since admission were creatinine is 1.0 currently 1.7 which I suspect is also contributed by contrast induced nephropathy along with relative hypotension and diuresis. (3) Hypotension: Code(s): I95.9 - Hypotension, unspecified Status: Acute Assessment and Plan: Patient relatively hypotensive possible sepsis. Blood cultures negative to date. Continue IV antibiotics as above. She has received IV albumin, IV fluids have been discontinued BP is improved. Avoid antihypertensives. She is afebrile no leukocytosis. (4) Elevated liver enzymes: Code(s): R74.8 - Abnormal levels of other serum enzymes Status: Acute Assessment and Plan: Significant LFT elevations, workup per primary service. Right upper quadrant ultrasound with cholelithiasis gallbladder wall thickening consider cholecystitis, hepatitis screen negative. Continue to hold atorvastatin, minimize nephrotoxic agents. Continue to monitor LFTs very closely on a serial basis which are improving at this time. Monitor coagulation studies. (5) Afib: Qualifiers: Atrial fibrillation type: paroxysmal Qualified Code(s): I48.0 - Paroxysmal atrial fibrillation Code(s): I48.91 - Unspecified atrial fibrillation Status: Acute Assessment and Plan: Maintaining sinus rhythm, intermittent pacing on telemetry. She is not a candidate for anticoagulation given history of falls, head injury nor does required given history of left atrial appendage occlusion device. (6) PAD (peripheral artery disease): Code(s): I73.9 - Peripheral vascular disease, unspecified Status: Acute Assessment and Plan: Stable. Hold atorvastatin given significant LFT abnormalities. (7) History of left atrial appendage closure: Code(s): Z98.890 - Other specified postprocedural states Status: Acute Assessment and Plan: As above, no indication for anticoagulation. (8) Pacemaker: Code(s): Z95.0 - Presence of cardiac pacemaker Status: Acute Assessment and Plan: Normal device function, she has a Micra device by CXR. (9) Recurrent falls: Code(s): R29.6 - Repeated falls Status: Acute Assessment and Plan: Anticoagulation contraindicated. Subjective Date/time
--- NOTE | 2023-09-21 12:53 | PM.IMPN ---
Progress Note: A&P Assessment and Plan (1) Acute hypoxemic respiratory failure: Code(s): J96.01 - Acute respiratory failure with hypoxia Status: Acute (2) Pulmonary edema: Qualifiers: Chronicity: acute Qualified Code(s): J81.0 - Acute pulmonary edema Code(s): J81.1 - Chronic pulmonary edema Status: Acute (3) Pneumonia: Code(s): J18.9 - Pneumonia, unspecified organism Status: Acute (4) Liver cirrhosis: Code(s): K74.60 - Unspecified cirrhosis of liver Status: Acute (5) Elevated liver enzymes: Code(s): R74.8 - Abnormal levels of other serum enzymes Status: Acute (6) CHA (acute kidney injury): Code(s): N17.9 - Acute kidney failure, unspecified Status: Acute Plan 88-year-old female presented with shortness of breath over past 2 days. Reported bilateral lower extremity edema. Comes from rehab center for weakness and recent right wrist fracture has been on Lasix regular basis. Arrival to the ER she was noted to be hypoxic on room air and required oxygen supplementation via nasal cannula. Orthopnea present mild cough some right-sided chest pain and abdominal pain. On chronic anticoagulation with Eliquis underlying COPD paroxysmal atrial fibrillation recent history of DVT chronic kidney disease hyperlipidemia hypertension. Hypothyroidism anxiety depression peripheral artery disease former smoker patient DNR DNI blood pressure borderline was afebrile EKG without acute ST-T changes. Viral swabs were negative. CBC showed WBC of 3.4 elevated BUN bicarbonate LFTs are all elevated above baseline with a bilirubin of 3 which is new. Initial troponin 0.062 followed by 0.124 BNP elevated at 2410. Chest x-ray showed moderate pulmonary edema. Infection not excluded. CT chest abdomen pelvis was done which showed normal caliber aorta without dissection mild pulmonary edema and scattered areas of atelectasis and pleural scarring. Enlarged main pulmonary artery with cardiomegaly. Suspected cirrhosis with cirrhotic hepatic morphology and volume distribution. Elevated LFTs suspected related to volume overload and CHF and hepatic congestion. She was initially required BiPAP in the ER with improvement in her tachypnea received some Lasix metabolic alkalosis likely chronic due to her underlying chronic COPD D-dimer was elevated at 3.59 AST 545 ALT 325 ALP 467 UA is negative for infection ABG 7.469/45/82. Cardiology has been consulted GI has been also consulted for elevated liver enzymes. She has been started on cefepime and vancomycin and levofloxacin also getting diuresed with Lasix 40 mg daily. Mild anemia with no signs of bleeding mild thrombocytopenia which seems to be chronic. Creatinine bumped up to 1.4 to 1.7 creatinine was 1 and baseline being 0.5-[address] was negative. Continue gentle hydration and the IV diuresis this time. Looks volume depleted. Provided IV fluids yesterday with improvement in blood pressure. Also on IV albumin. CTA with scattered ground-glass opacities of the lungs suspicious with mild edema been covered for pneumonia with IV antibiotics. Blood cultures been obtained which is pending. MRSA nares came back positive. Will continue IV vancomycin. Procalcitonin checked was high at 9.6. Will continue to monitor procalcitonin. With elevated LFTs right upper quadrant ultrasound was obtained which showed cholelithiasis with gallbladder wall thickening consider cholecystitis. Will get a HIDA scan and surgical consultation. Added Flagyl for anaerobic coverage. Ammonia level was normal BNP seems chronically elevated but higher than her baseline. Lactate was normal at 1.8. Hold atorvastatin due to elevated liver enzymes continue Keppra levothyroxine check hepatitis profile which came back negative. Echo 11/13 with EF 74% concentric left ventricular hypertrophy mild diastolic dysfunction present severe enlargement of the left atrium mild enlargement of the r
--- NOTE | 2023-09-21 14:30 | PM.CNGS ---
Assessment and Plan Assessment and plan (1) Cholecystitis with cholelithiasis: Code(s): K80.10 - Calculus of gallbladder with chronic cholecystitis without obstruction Status: Acute Assessment and Plan: Exam benign, recommend conservative management at this point, patient is extremely poor surgical candidate and if medical management fails will likely need percutaneous cholecystostomy tube (2) Acute hypoxemic respiratory failure: Code(s): J96.01 - Acute respiratory failure with hypoxia Status: Acute Assessment and Plan: requiring oxygen therapy, management per primary team (3) Liver cirrhosis: Code(s): K74.60 - Unspecified cirrhosis of liver Status: Acute Assessment and Plan: chronic, await GI input, likely etiology of elevated transaminases History of Present Illness Consult details Consult date: 09/21/23 Reason for consult: abdominal pain Requesting physician: Rich Lux MD Narrative: The patient is an 88-year-old female with multiple medical issues presenting with weakness, mental status change. The patient has since been admitted to the medical service and workup revealed elevated LFTs. Workup, including imaging, is significant for possible cholecystitis, cholelithiasis. Patient also with noted cirrhotic changes on CT. Patient is non communicative this time and all history is obtained via chart. Patient is also DNR, DNI. Review of Systems Review of Systems: ROS unobtainable: Yes unobtainable due to medical condition and unobtainable due to mental status PMFSH Past Medical History Medical History Afib patient had wactchman placed for a. fib approximately 2 yrs ago Choking Chronic a-fib Chronic pain disorder CKD (chronic kidney disease), stage III Essential (primary) hypertension Fatigue Fracture of knee prosthesis History of blood transfusion History of brain tumor History of DVT (deep vein thrombosis) HLD (hyperlipidemia) Hoarseness of voice HTN (hypertension) Hypertension Hypothyroidism (acquired) Hypothyroidism, unspecified Lumbar spondylosis Major depressive disorder, single episode, unspecified Minor head injury without loss of consciousness Numbness and tingling in left hand Obesity Other fracture of right femur, initial encounter for closed fracture PAD (peripheral artery disease) Unspecified injury of head, sequela Surgical History Surgical History Brain tumor (benign) excised H/O thyroidectomy History of appendectomy History of back surgery History of hip replacement History of knee replacement History of repair of ruptured globe Hx of right inguinal hernia repair 06/11/22 Hx of tonsillectomy Family History Family History Sibling Family history of multiple sclerosis, Onset Age: 43 Father Acute myocardial infarction Mother , age 60 Heart disease Acute myocardial infarction Social History Social History Smoking packs per day: 0.25 Smoking cigarettes per day: 5.0 Years smoked: 15 Smoking pack-years: 3.75 Smoking status: Unknown if ever smoked Second hand tobacco smoke exposure: No Additional smoking assessment comments: UNABLE TO RECALL SMOKING DETAILS - QUIT LATE Alcohol intake: current Drinks per week: 1 Alcohol use details: STATES MAYBE 2/MONTH Substance use: never Substance use type: does not use Do You Feel Safe in your Home?: No Lack of Transportation: No Lack of Food: Never True Current Housing: Decline to Answer Concerned About Future Housing: Decline to Answer Difficulty Paying Gas/Electric Bills: Decline to Answer Difficulty Paying for Meds: Decline to Answer Currently Unemployed: Decline to Answer Education: Don't Know Difficul
--- NOTE | 2023-09-21 15:09 | WPDGICN ---
Assessment and Plan Assessment and plan (1) Elevated liver enzymes: Code(s): R74.8 - Abnormal levels of other serum enzymes Status: Acute Assessment and Plan: here with pulmonary edema, known heart disease/heart failure and possible pulmonary hypertension I wonder if new elevation of liver enzymes could be related to right heart strain, hypotension, CHA, etc probably she also has some underlying liver disease but previous imaging of liver no major findings and also had normal liver enzymes hepatitis panel negative trend liver enzymes, will check blood work to rule out other liver conditions but less likely (2) Acute hypoxemic respiratory failure: Code(s): J96.01 - Acute respiratory failure with hypoxia Status: Acute Assessment and Plan: by cardiology (3) Hypotension: Code(s): I95.9 - Hypotension, unspecified Status: Acute Assessment and Plan: resolved (4) Cholecystitis with cholelithiasis: Code(s): K80.10 - Calculus of gallbladder with chronic cholecystitis without obstruction Status: Acute Assessment and Plan: noted GW thickening but agree with surgery that abdominal exam is benign and she is at high risk for any intervention monitor (5) CHA (acute kidney injury): Code(s): N17.9 - Acute kidney failure, unspecified Status: Acute (6) Pulmonary edema: Qualifiers: Chronicity: acute Qualified Code(s): J81.0 - Acute pulmonary edema Code(s): J81.1 - Chronic pulmonary edema Status: Acute GI Consult Note Consult date/time: 09/21/23 15:09 Reason for consult: elevated liver enzymes HPI: Zohreh Oakes is a 88 year old female with past medical history significant for paroxysmal atrial fibrillation, history of bradycardia status post fall with head injury 06/2023 status post pacemaker implantation at [place] necessitating discontinuation of systemic anticoagulation permanently, hyperlipidemia, hypertension, history of heart failure with preserved ejection fraction who was brought to hospital after worsening shortness of breath along with more lower extremity edema.? Patient was hypoxic required O2 supplementation. ?Had elevated BNP, CXR with moderate pulmonary edema, CT Scan reviewed with pulmonary arterial hypertension. No evidence for pulmonary embolism.? Scattered groundglass of opacities of the lungs, suspicious for mild edema.? Hepatosplenomegaly. Cholelithiasis. Also noted to have bili 4, transaminases 200-300, mild elevated troponin. Denies previous history of liver disease, previous liver enzymes normal, no alcohol use. She also had some hypotension after diuretics, started on abx for possible pneumonia. Review of Systems Constitutional: Constitutional: Reports weakness Eyes: Eyes: Denies blurry vision ENT: Reports Normal hearing present Cardiovascular: Cardiovascular: Reports leg edema Respiratory: Respiratory: Reports dyspnea on exertion Gastrointestinal: Gastrointestinal: Denies abdominal pain Genitourinary: Genitourinary: Denies urinary urgency Musculoskeletal: Musculoskeletal: Denies stiffness Integumentary/Breasts: Skin/Breast: Denies rash Neurologic: Denies Abnormal speech present [facility] Past Medical History Medical History Afib patient had wactchman placed for a. fib approximately 2 yrs ago Choking Chronic a-fib Chronic pain disorder CKD (chronic kidney disease), stage III Essential (primary) hypertension Fatigue Fracture of knee prosthesis History of blood transfusion History of brain tumor History of DVT (deep vein thrombosis) HLD (hyperlipidemia) Hoarseness of voice HTN (hypertension) Hypertension Hypothyroidism (acquired) Hypothyroidism, unspecified Lumbar spondylosis Major depressive disorder, single episode, unspecified Minor head injury without loss of consciousness Numbness and tingling in left hand Obesity Other frac
[2023-09-21] MEDS: HYDROcodone/acetaminophen (*CRX) 10-325 MG TABLET 1 TAB PO (17:18)
[2023-09-21] MEDS: VANCOMYCIN 1,500 MG/NS 500 ML 1,500 MG/500 ML BAG 250 MG IVPB (17:19)
[2023-09-22] VITALS (16 sets, daily range): BP systolic 113–135; BP diastolic 61–70; PULSE 60–74; RESP 2–26; TEMP 36.1–36.4; O2SAT 94–100
[2023-09-22] MEDS: ALBUMIN HUMAN 25% 25 GM/100 ML 100 ML IVPB ×4 (03:12→21:17)
[2023-09-22 05:14] LABS: Basophils Percent Auto 0.2 % (0.2-1.2); Eosinophils Absolute Auto 0.1 K/mm3 (0-0.3); Eosinophils Percent Auto 1.2 % (0-4.4); Hematocrit 29.5 % (37.0-47.0); Hemoglobin 9.1 g/dL (12.0-15.0); Immature Granulocyte Absolute 0.05 K/mm3 (0.00-0.031); Immature Platelet Fraction Pct 6.3 % (0.9-11.2); Lymphocytes Absolute Auto 0.25 K/mm3 (0.9-3.2); Lymphocytes Percent Auto 4.9 % (18.3-44.2); Mean Corpuscular HGB Conc 30.8 g/dl (32-36); Mean Corpuscular Hemoglobin 30.1 pg (26-34); Mean Corpuscular Volume 97.7 fl (80-100); Mean Platelet Volume 10.8 fl (7.4-10.4); Monocytes Absolute Auto 0.4 K/mm3 (0.1-0.6); Monocytes Percent Auto 8.1 % (2.6-8.5); Neutrophils Absolute Auto 4.3 K/mm3 (1.3-6.7); Neutrophils Percent Auto 84.6 % (45.5-73.1); Platelet Count Result 97 k/mm3 (150-375); Red Blood Count 3.02 M/mm3 (4.2-5.4); Red Cell Distribution Width 16.6 % (11.5-14.5); White Blood Count 5.1 K/mm3 (4.5-10.0)
[2023-09-22 05:27] LABS: Alanine Aminotransferase 157 U/L (6-35); Albumin Level 3.9 g/dL (3.5-5.1); Alkaline Phosphatase 277 U/L (38-126); Anion Gap 9 mmol/L (8-16); Aspartate Amino Transferase 127 U/L (14-36); Bilirubin,Total 4.6 mg/dL (0.2-1.3); Blood Urea Nitrogen 48 mg/dL (7-17); Calcium 8.5 mg/dL (8.4-10.2); Carbon Dioxide 29 mmol/L (22-30); Chloride 98 mmol/L (98-107); Estimated CRCL calculation 23 ml/min; Estimated Glomerular Filt Rate 27; Glucose 83 mg/dL (65-110); Potassium 3.6 mmol/L (3.4-5.0); Sodium 136 mmol/L (137-145)
[2023-09-22 05:36] LABS: Anisocytosis 1+ (NORMAL); Hypochromasia 1+ (NORMAL); Platelet Estimate Decreased (Adequate); Schistocytes None Seen (NORMAL)
[2023-09-22] MEDS: LEVOTHYROXINE SODIUM 88 MCG TABLET PO (05:58)
[2023-09-22] MEDS: metroNIDAZOLE 500 MG/ISO 100ML 500 MG/100 ML BAG 100 MG IVPB ×3 (05:59→21:18)
[2023-09-22] MEDS: levETIRAcetam 500 MG TABLET PO ×2 (08:46→21:17)
[2023-09-22] MEDS: THERAPEUTIC MULTIVITAMINS/MINERALS TAB (*BKC) 1 TABLET PO (08:46)
[2023-09-22] MEDS: ASPIRIN 325 MG TABLET PO (08:46)
[2023-09-22] MEDS: GABAPENTIN 100 MG CAPSULE PO ×3 (08:46→17:20)
[2023-09-22] MEDS: VENLAFAXINE HCL XR 75 MG CAP.ER.24H 150 MG PO (08:46)
[2023-09-22] MEDS: PANTOPRAZOLE 40 MG TABLET PO (08:46)
[2023-09-22] MEDS: POTASSIUM CHLORIDE 20 MEQ ER TABLET PO (08:48)
[2023-09-22] MEDS: rOPINIRole HCL 1 MG TABLET 4 MG PO ×2 (08:48→17:20)
[2023-09-22] MEDS: ASCORBIC ACID 500 MG TABLET PO (08:48)
[2023-09-22] MEDS: ENOXAPARIN 30 MG/0.3 ML SYRINGE SUB-Q (08:49)
[2023-09-22] MEDS: FERROUS SULFATE 325 MG TABLET DR PO (08:49)
--- NOTE | 2023-09-22 10:58 | PM.PNCARD ---
Progress Note: A&P Assessment and Plan (1) Pulmonary edema: Qualifiers: Chronicity: acute Qualified Code(s): J81.0 - Acute pulmonary edema Code(s): J81.1 - Chronic pulmonary edema Status: Acute Assessment and Plan: Patient presented with shortness of breath, hypoxic respiratory failure requiring BiPAP support now weaned to O2. Chest x-ray and CT suggest mild pulmonary edema, however, patient more hypotensive after receiving IV Lasix with acute kidney injury. Therefore she was given IV fluid boluses and started on continuous IV infusion. She was also started on IV antibiotics for suspected pneumonia. It appears IV antibiotics have provided the most significant improvement along with supportive care. Lasix remains on hold IV fluids have been discontinued. Continue to monitor volume status very closely as she appears to be reasonably euvolemic. Wean O2 as tolerated. However, as an outpatient she was on Lasix and Metolazone and anticipate she will require re-initiation. (2) CHA (acute kidney injury): Code(s): N17.9 - Acute kidney failure, unspecified Status: Acute Assessment and Plan: Acute kidney injury likely secondary to hypotension, IV Lasix and contrast load although injury pattern occurred much more quickly than that would be expected with a contrast induced nephropathy. Will need to continue to monitor renal function very closely nonetheless as she did receive a contrast load on top of general medical management. Monitor urine output and blood pressure very closely. Hold any antihypertensives for now. (3) Hypotension: Code(s): I95.9 - Hypotension, unspecified Status: Acute Assessment and Plan: Blood pressures are now stable and normotensive. Monitor closely. (4) Elevated liver enzymes: Code(s): R74.8 - Abnormal levels of other serum enzymes Status: Acute Assessment and Plan: Significant LFT elevations, workup per primary service. (5) Afib: Qualifiers: Atrial fibrillation type: paroxysmal Qualified Code(s): I48.0 - Paroxysmal atrial fibrillation Code(s): I48.91 - Unspecified atrial fibrillation Status: Acute Assessment and Plan: Maintaining sinus rhythm, intermittent pacing on telemetry. She is not a candidate for anticoagulation given history of falls, head injury nor does she require it given history of left atrial appendage occlusion device. (6) PAD (peripheral artery disease): Code(s): I73.9 - Peripheral vascular disease, unspecified Status: Acute Assessment and Plan: Stable. Hold atorvastatin given significant LFT abnormalities. (7) History of left atrial appendage closure: Code(s): Z98.890 - Other specified postprocedural states Status: Acute Assessment and Plan: As above, no indication for anticoagulation. (8) Pacemaker: Code(s): Z95.0 - Presence of cardiac pacemaker Status: Acute Assessment and Plan: Normal device function, she has a Micra device by CXR. (9) Recurrent falls: Code(s): R29.6 - Repeated falls Status: Acute Assessment and Plan: Anticoagulation contraindicated. Subjective Date/time seen: 09/22/23 10:58 Interval history: Reason for visit: Pulmonary edema HPI: Patient is a pleasant 88-year-old female followed by Dr. Skinner with past medical history significant for paroxysmal atrial fibrillation, history of bradycardia status post fall with head injury 06/2023 status post micra pacemaker implantation at [place] necessitating discontinuation of systemic anticoagulation permanently, hyperlipidemia, hypertension, history of heart failure with preserved ejection fraction who states she was in her usual state of health when she began to experience progressive shortness of breath about 2 days prior to admission, history of recurrent falls recent discharge from rehabilitation 2nd right wrist fr
[2023-09-22] MEDS: TOLNAFTATE 1% POWDER 45 GM BTL 1 APPLIC TOPICAL (13:07)
--- NOTE | 2023-09-22 13:10 | PM.PNGS ---
Progress Note: A&P Assessment and Plan (1) Cholecystitis with cholelithiasis: Code(s): K80.10 - Calculus of gallbladder with chronic cholecystitis without obstruction Status: Acute Assessment and Plan: exam cont to be benign, cont med management at this point (2) Elevated liver enzymes: Code(s): R74.8 - Abnormal levels of other serum enzymes Status: Acute Assessment and Plan: likely intrinsic liver dz, HIDA reviewed, cont to trend Subjective Subjective Date/Time Seen: 09/22/23 13:10 Interval history: reports she is feeling better, SOB improved, no abd pain Review of Systems Review of Systems: All systems reviewed & are unremarkable except as noted in HPI and below Exam Const: General: cooperative, comfortable, no acute distress and ill appearing Resp: Auscultation: diminished lung sounds Cardio: Rate: regular rate Rhythm: regular rhythm GI: Inspection: normal to inspection and distended GI Palp: No abdominal tenderness, Yes Soft to palpation, No Tenderness to palpation present (GI), No Guarding due to palpation present (GI) and No Rigid due to palpation Objective Data Vital Signs Vital Signs: Vital Signs - 24 hr 09/21/23 14:00 09/21/23 15:44 09/21/23 16:00 Temperature 36.4 C L Pulse Rate 74 77 Respiratory Rate 22 H Blood Pressure 117/56 L Pulse Oximetry 99 99 Oxygen Delivery Nasal Cannula Oxygen Flow Rate 4 09/21/23 16:00 09/21/23 18:00 09/21/23 20:10 Temperature 36.9 C Pulse Rate 74 75 65 Respiratory Rate 16 Blood Pressure 113/63 Pulse Oximetry 92 Oxygen Delivery Oxygen Flow Rate 09/21/23 20:00 09/21/23 20:00 09/21/23 22:00 Temperature Pulse Rate 65 65 67 Respiratory Rate 16 Blood Pressure Pulse Oximetry 92 Oxygen Delivery Nasal Cannula Oxygen Flow Rate 4 09/22/23 00:32 09/22/23 00:00 09/22/23 00:00 Temperature 36.2 C L Pulse Rate 69 69 62 Respiratory Rate 20 20 Blood Pressure 113/61 Pulse Oximetry 99 99 Oxygen Delivery Nasal Cannula Oxygen Flow Rate 4 09/22/23 04:08 09/22/23 04:00 09/22/23 02:00 Temperature 36.3 C L Pulse Rate 73 73 73 Respiratory Rate 20 20 Blood Pressure 119/67 Pulse Oximetry 96 96 Oxygen Delivery Nasal Cannula Oxygen Flow Rate 4 09/22/23 04:00 09/21/23 22:00 09/22/23 06:00 Temperature Pulse Rate 74 72 Respiratory Rate Blood Pressure Pulse Oximetry 96 Oxygen Delivery Nasal Cannula Oxygen Flow Rate 4 09/22/23 08:11 09/22/23 08:55 09/22/23 08:00 Temperature 36.4 C Pulse Rate 72 73 Respiratory Rate 22 H Blood Pressure 132/70 Pulse Oximetry 94 94 Oxygen Delivery Nasal Cannula Oxygen Flow Rate 4 09/22/23 08:00 09/22/23 12:10 Temperature 36.1 C L Pulse Rate 72 Respiratory Rate 22 H Blood Pressure 135/67 Pulse Oximetry 94 100 Oxygen Delivery Nasal Cannula Oxygen Flow Rate 4 Intake/Output Intake/Output: Intake & Output 09/19/23 09/20/23 09/21/23 09/22/23 23:59 23:59 23:59 23:59 Intake Total 50 1750 990 590 Output Total 100 500 925 400 Balance -50 1250 65 190 Meds/Results Medications: Active Medications Generic Name Dose Route Start Last Admin Trade Name Freq PRN Reason Stop Dose Admin Acetaminophen 650 mg 09/20/23 02:40 09/20/23 03:56 Acetaminophen 325 Mg Tablet PO 650 mg Q4H PRN Administration Mild Pain (1-3) or Fever Hydrocodone Bitart/Acetaminophen 1 tab 09/20/23 09:37 09/21/23 17:18 Hydrocodone/Acetaminophen (*Crx) 10-325 Mg Tablet PO 1 tab Q6H PRN Administration Pain Rated 4-6 Albuterol 2 puff 09/20/23 09:37 Albuterol Sulfate (*Sp) Aerosol 1 Puff INHALATION Q4H PRN Shortness Of Breath Or Wheezing Artificial Tears 1 drop 09/20/23 09:52 Artificial Tears Ophth Soln 15 Ml Bottle EACH EYE QID PRN Dry Eyes Ascorbic Acid 500 mg 09/20/23 11:00 09/22/23 08:48 Ascorbic Acid 500 Mg Tablet PO 500 mg DA
--- NOTE | 2023-09-22 14:47 | PM.IMPN ---
Progress Note: A&P Assessment and Plan (1) Acute hypoxemic respiratory failure: Code(s): J96.01 - Acute respiratory failure with hypoxia Status: Acute (2) Pulmonary edema: Qualifiers: Chronicity: acute Qualified Code(s): J81.0 - Acute pulmonary edema Code(s): J81.1 - Chronic pulmonary edema Status: Acute (3) Pneumonia: Code(s): J18.9 - Pneumonia, unspecified organism Status: Acute (4) Liver cirrhosis: Code(s): K74.60 - Unspecified cirrhosis of liver Status: Acute (5) Elevated liver enzymes: Code(s): R74.8 - Abnormal levels of other serum enzymes Status: Acute (6) CHA (acute kidney injury): Code(s): N17.9 - Acute kidney failure, unspecified Status: Acute Plan 88-year-old female presented with shortness of breath over past 2 days. Reported bilateral lower extremity edema. Comes from rehab center for weakness and recent right wrist fracture has been on Lasix regular basis. Arrival to the ER she was noted to be hypoxic on room air and required oxygen supplementation via nasal cannula. Orthopnea present mild cough some right-sided chest pain and abdominal pain. On chronic anticoagulation with Eliquis underlying COPD paroxysmal atrial fibrillation recent history of DVT chronic kidney disease hyperlipidemia hypertension. Hypothyroidism anxiety depression peripheral artery disease former smoker patient DNR DNI blood pressure borderline was afebrile EKG without acute ST-T changes. Viral swabs were negative. CBC showed WBC of 3.4 elevated BUN bicarbonate LFTs are all elevated above baseline with a bilirubin of 3 which is new. Initial troponin 0.062 followed by 0.124 BNP elevated at 2410. Chest x-ray showed moderate pulmonary edema. Infection not excluded. CT chest abdomen pelvis was done which showed normal caliber aorta without dissection mild pulmonary edema and scattered areas of atelectasis and pleural scarring. Enlarged main pulmonary artery with cardiomegaly. Suspected cirrhosis with cirrhotic hepatic morphology and volume distribution. Elevated LFTs suspected related to volume overload and CHF and hepatic congestion. She was initially required BiPAP in the ER with improvement in her tachypnea received some Lasix metabolic alkalosis likely chronic due to her underlying chronic COPD D-dimer was elevated at 3.59 AST 545 ALT 325 ALP 467 UA is negative for infection ABG 7.469/45/82. Cardiology has been consulted. GI has been also consulted for elevated liver enzymes. She has been started on cefepime and vancomycin and levofloxacin also getting diuresed with Lasix 40 mg daily. Mild anemia with no signs of bleeding mild thrombocytopenia which seems to be chronic. Creatinine bumped up to 1.4 to 1.7 creatinine was 1 and baseline being 0.5-[address] was negative. Provided IV fluids with improvement in blood pressure. Also on IV albumin. Will stop IV albumin today TA with scattered ground-glass opacities of the lungs suspicious with mild edema been covered for pneumonia with IV antibiotics. Blood cultures been obtained which is pending. MRSA nares came back positive. Will continue IV vancomycin. Procalcitonin checked was high at 9.6. Recheck procalcitonin. elevated LFTs right upper quadrant ultrasound was obtained which showed cholelithiasis with gallbladder wall thickening consider cholecystitis. HIDA scan inconclusive. General surgery consulted. Added Flagyl for anaerobic coverage. Ammonia level was normal BNP seems chronically elevated but higher than her baseline. Lactate was normal at 1.8. Hold atorvastatin due to elevated liver enzymes. LFTs continue to improve. Hepatitis profile came back negative. Continue levothyroxine Echo 11/13 with EF 74% concentric left ventricular hypertrophy mild diastolic dysfunction present severe enlargement of the left atrium mild enlargement of the right atrium mild MR mild AR severe pulmonary hypertension moderate tri
[2023-09-22 16:34] LABS: Procalcitonin 17.1 ng/mL
--- NOTE | 2023-09-22 16:35 | WPDGIPROGNO ---
Progress Note: A&P Assessment and Plan (1) Elevated liver enzymes: Code(s): R74.8 - Abnormal levels of other serum enzymes Status: Acute Assessment and Plan: wonder if she has underlying liver condition but liver enzymes in the past relatively normal probably affected by pulmonary edema/CHF/renal failure and episode of hypotension but BP stable now hida scan c/w liver dysfunction supportive care (2) Pulmonary edema: Qualifiers: Chronicity: acute Qualified Code(s): J81.0 - Acute pulmonary edema Code(s): J81.1 - Chronic pulmonary edema Status: Acute Assessment and Plan: by cardiology (3) CHA (acute kidney injury): Code(s): N17.9 - Acute kidney failure, unspecified Status: Acute Assessment and Plan: monitor renal function, creat 1.7 (4) CHF exacerbation: Code(s): I50.9 - Heart failure, unspecified Status: Acute (5) Hypotension: Code(s): I95.9 - Hypotension, unspecified Status: Acute Assessment and Plan: BP better (6) History of atrial fibrillation: Code(s): Z86.79 - Personal history of other diseases of the circulatory system Status: Acute Subjective Date/time seen: 09/22/23 16:35 Interval history: breathing better but still using oxygen, + edema legs Review of Systems Review of Systems: All systems reviewed & are unremarkable except as noted in HPI and below Exam Const: General: confusion, ill appearing and tired appearing HENMT: Head: normal to inspection and normocephalic Eyes: General: appearance normal, both eyes and all related structures Neck: Neck: normal visual inspection Resp: Auscultation: diminished lung sounds Cardio: Rate: regular rate Rhythm: regular rhythm Heart sounds: Murmur heart sound present GI: Inspection: normal to inspection and distended GI Palp: No abdominal tenderness, Yes Soft to palpation, No Tenderness to palpation present (GI), No Guarding due to palpation present (GI) and No Rigid due to palpation Skin: General skin exam: normal color Neuro: Speech: normal speech Motor exam (neuro): 5/5 motor strength present throughout Extrem: General: pedal edema Psych: Affect: normal affect Objective Data Vital Signs Vital Signs: Vital Signs - 24 hr 09/21/23 18:00 09/21/23 20:10 09/21/23 20:00 Temperature 98.4 F Pulse Rate 75 65 65 Respiratory Rate 16 16 Blood Pressure 113/63 Pulse Oximetry 92 92 Oxygen Delivery Nasal Cannula Oxygen Flow Rate 4 09/21/23 20:00 09/21/23 22:00 09/22/23 00:32 Temperature 97.1 F L Pulse Rate 65 67 69 Respiratory Rate 20 Blood Pressure 113/61 Pulse Oximetry 99 Oxygen Delivery Oxygen Flow Rate 09/22/23 00:00 09/22/23 00:00 09/22/23 04:08 Temperature 97.4 F L Pulse Rate 69 62 73 Respiratory Rate 20 20 Blood Pressure 119/67 Pulse Oximetry 99 96 Oxygen Delivery Nasal Cannula Oxygen Flow Rate 4 09/22/23 04:00 09/22/23 02:00 09/22/23 04:00 Temperature Pulse Rate 73 73 74 Respiratory Rate 20 Blood Pressure Pulse Oximetry 96 Oxygen Delivery Nasal Cannula Oxygen Flow Rate 4 09/21/23 22:00 09/22/23 06:00 09/22/23 08:11 Temperature 97.6 F Pulse Rate 72 72 Respiratory Rate 22 H Blood Pressure 132/70 Pulse Oximetry 96 94 Oxygen Delivery Nasal Cannula Oxygen Flow Rate 4 09/22/23 08:55 09/22/23 08:00 09/22/23 08:00 Temperature Pulse Rate 73 Respiratory Rate Blood Pressure Pulse Oximetry 94 94 Oxygen Delivery Nasal Cannula Nasal Cannula Oxygen Flow Rate 4 4 09/22/23 12:10 09/22/23 15:09 09/22/23 12:00 Temperature 97.0 F L 97.0 F L Pulse Rate 72 65 Respiratory Rate 22 H 2 L Blood Pressure 135/67 114/63 Pulse Oximetry 100 99 99 Oxygen Delivery Nasal Cannula Oxygen Flow Rate 4 Intake/Output Intake/Output: Intake & Output 09/19/23 09/20/23 09/21/23 09/22/23 23:59 23:59 23:59 23:59 Intake Tota
--- NOTE | 2023-09-22 17:00 | PC.NURSE ---
agree with documentation from student nurse Amy Tran
[2023-09-22] MEDS: ARTIFICIAL TEARS OPHTH SOLN 15 ML BOTTLE 1 DROP EACH EYE (17:22)
[2023-09-22 18:21] LABS: Alveolar/Arterial O2 Gradient 38.8 mmHg; Base Excess ABG 1.4 mEq/l (+/-2.0); Fractional Inspired Oxygen 21 %; HCO3 ABG 27.1 mEq/l (22.0-26.0); Oxygen Content ABG 12.9 %vol (16.0-22.0); PO2 ABG 53.5 mmHg (80.0-100.0); PO2 FiO2 Ratio Arterial Blood 2.55 %; Total Hemoglobin 10.6 g/dL (12.0-18.0)
[2023-09-22 18:22] LABS: Device ROOM AIR; Modified Allen's Test Pass; Oxygen Saturation ABG 86.6 % (95.0-100.0); Oxyhemoglobin 86.5 % THb (90.0-100.0); Site Drawn LEFT RADIAL
[2023-09-22] MEDS: FUROSEMIDE INJ 40 MG/4 ML VIAL 20 MG IV PUSH (18:32)
[2023-09-22] MEDS: ACETAMINOPHEN 325 MG TABLET 650 MG PO (21:16)
[2023-09-23] VITALS (27 sets, daily range): BP systolic 110–118; BP diastolic 54–64; PULSE 58–74; RESP 20–26; TEMP 36.2–36.6; O2SAT 92–100
[2023-09-23] MEDS: ALBUMIN HUMAN 25% 25 GM/100 ML 100 ML IVPB (02:31)
[2023-09-23] MEDS: levoFLOXacin 750 MG/D5W 150 ML 750 MG/150 ML BAG 100 MG IVPB (04:53)
[2023-09-23] MEDS: LEVOTHYROXINE SODIUM 88 MCG TABLET PO (04:54)
[2023-09-23] MEDS: metroNIDAZOLE 500 MG/ISO 100ML 500 MG/100 ML BAG 100 MG IVPB ×3 (04:54→22:51)
[2023-09-23 05:11] LABS: Basophils Percent Auto 0.6 % (0.2-1.2); Eosinophils Absolute Auto 0.1 K/mm3 (0-0.3); Eosinophils Percent Auto 2.2 % (0-4.4); Hematocrit 28.6 % (37.0-47.0); Hemoglobin 8.9 g/dL (12.0-15.0); Immature Granulocyte Absolute 0.02 K/mm3 (0.00-0.031); Immature Granulocyte Percent A 0.6 % (0-0.5); Immature Platelet Fraction Pct 6.8 % (0.9-11.2); Lymphocytes Absolute Auto 0.38 K/mm3 (0.9-3.2); Lymphocytes Percent Auto 10.7 % (18.3-44.2); Mean Corpuscular HGB Conc 31.1 g/dl (32-36); Mean Corpuscular Hemoglobin 30.6 pg (26-34); Mean Corpuscular Volume 98.3 fl (80-100); Mean Platelet Volume 10.9 fl (7.4-10.4); Monocytes Absolute Auto 0.4 K/mm3 (0.1-0.6); Monocytes Percent Auto 12.1 % (2.6-8.5); Neutrophils Absolute Auto 2.6 K/mm3 (1.3-6.7); Neutrophils Percent Auto 73.8 % (45.5-73.1); Platelet Count Result 100 k/mm3 (150-375); Red Blood Count 2.91 M/mm3 (4.2-5.4); Red Cell Distribution Width 16.6 % (11.5-14.5); White Blood Count 3.6 K/mm3 (4.5-10.0)
[2023-09-23 05:23] LABS: Alanine Aminotransferase 96 U/L (6-35); Albumin Level 3.8 g/dL (3.5-5.1); Alkaline Phosphatase 286 U/L (38-126); Anion Gap 11 mmol/L (8-16); Aspartate Amino Transferase 71 U/L (14-36); Bilirubin,Total 4.3 mg/dL (0.2-1.3); Blood Urea Nitrogen 53 mg/dL (7-17); Calcium 8.9 mg/dL (8.4-10.2); Carbon Dioxide 30 mmol/L (22-30); Chloride 99 mmol/L (98-107); Estimated CRCL calculation 23 ml/min; Estimated Glomerular Filt Rate 27; Glucose 96 mg/dL (65-110); Magnesium 2.1 mg/dL (1.6-2.3); Potassium 3.6 mmol/L (3.4-5.0); Sodium 140 mmol/L (137-145)
[2023-09-23 06:34] LABS: Vancomycin Trough 17.4 ug/mL (10.0-20.0)
[2023-09-23 09:00] LABS: Bilirubin Indirect 0.7 mg/dL (0-1.1); Lactate Dehydrogenase 139 U/L (120-246)
[2023-09-23] MEDS: VANCOMYCIN 1,500 MG/NS 500 ML 1,500 MG/500 ML BAG 250 MG IVPB (10:32)
[2023-09-23] MEDS: ASCORBIC ACID 500 MG TABLET PO (10:32)
[2023-09-23] MEDS: FERROUS SULFATE 325 MG TABLET DR PO (10:33)
[2023-09-23] MEDS: ASPIRIN 325 MG TABLET PO (10:33)
[2023-09-23] MEDS: levETIRAcetam 500 MG TABLET PO ×2 (10:33→21:01)
[2023-09-23] MEDS: VENLAFAXINE HCL XR 75 MG CAP.ER.24H 150 MG PO (10:33)
[2023-09-23] MEDS: rOPINIRole HCL 1 MG TABLET 4 MG PO ×2 (10:33→18:38)
[2023-09-23] MEDS: ENOXAPARIN 30 MG/0.3 ML SYRINGE SUB-Q (10:33)
[2023-09-23] MEDS: GABAPENTIN 100 MG CAPSULE PO ×3 (10:34→18:38)
[2023-09-23] MEDS: POTASSIUM CHLORIDE 20 MEQ ER TABLET PO (10:34)
[2023-09-23] MEDS: PANTOPRAZOLE 40 MG TABLET PO (10:34)
[2023-09-23] MEDS: TOLNAFTATE 1% POWDER 45 GM BTL 1 APPLIC TOPICAL (10:34)
[2023-09-23] MEDS: THERAPEUTIC MULTIVITAMINS/MINERALS TAB (*BKC) 1 TABLET PO (10:34)
--- NOTE | 2023-09-23 12:19 | PM.PNGS ---
Progress Note: A&P Assessment and Plan (1) Cholecystitis with cholelithiasis: Code(s): K80.10 - Calculus of gallbladder with chronic cholecystitis without obstruction Status: Acute Assessment and Plan: doing well, exam benign, cont diet, no acute surgical issues, will s/o, call c ?s, issues Subjective Subjective Date/Time Seen: 09/23/23 12:19 Interval history: feels good, no abd pain, tamir heart healthy diet Review of Systems Review of Systems: All systems reviewed & are unremarkable except as noted in HPI and below Exam Const: General: cooperative, comfortable, no acute distress and ill appearing Resp: Auscultation: diminished lung sounds Cardio: Rate: regular rate Rhythm: regular rhythm GI: Inspection: normal to inspection and non-distended GI Palp: No abdominal tenderness, Yes Soft to palpation, No Tenderness to palpation present (GI), No Guarding due to palpation present (GI) and No Rigid due to palpation Objective Data Vital Signs Vital Signs: Vital Signs - 24 hr 09/22/23 15:09 09/22/23 20:00 09/22/23 16:00 Temperature 36.1 C L 36.2 C L Pulse Rate 65 69 68 Respiratory Rate 2 L 22 H Blood Pressure 114/63 125/64 Pulse Oximetry 99 99 Oxygen Delivery Oxygen Flow Rate Fraction of Inspired Oxygen 09/22/23 16:00 09/22/23 20:00 09/22/23 20:00 Temperature Pulse Rate 66 Respiratory Rate Blood Pressure Pulse Oximetry 94 99 Oxygen Delivery Nasal Cannula Nasal Cannula Oxygen Flow Rate 2 2 Fraction of Inspired Oxygen 09/22/23 22:00 09/23/23 00:31 09/23/23 00:00 Temperature 36.3 C L Pulse Rate 60 62 65 Respiratory Rate 22 H Blood Pressure 110/54 L Pulse Oximetry 100 Oxygen Delivery Oxygen Flow Rate Fraction of Inspired Oxygen 09/23/23 00:00 09/22/23 22:30 09/23/23 01:22 Temperature Pulse Rate Respiratory Rate 26 H 24 H Blood Pressure Pulse Oximetry 98 98 98 Oxygen Delivery BiPAP BiPAP BiPAP Oxygen Flow Rate Fraction of Inspired Oxygen 50 09/23/23 02:00 09/23/23 03:34 09/23/23 02:30 Temperature Pulse Rate 60 Respiratory Rate Blood Pressure Pulse Oximetry 98 96 Oxygen Delivery Nasal Cannula Nasal Cannula Oxygen Flow Rate 2 2 Fraction of Inspired Oxygen 09/23/23 04:00 09/23/23 05:19 09/23/23 06:00 Temperature 36.6 C Pulse Rate 66 59 L 64 Respiratory Rate 22 H Blood Pressure 118/57 L Pulse Oximetry 98 Oxygen Delivery Oxygen Flow Rate Fraction of Inspired Oxygen 09/23/23 07:54 09/23/23 08:21 09/23/23 11:46 Temperature 36.4 C 36.2 C L Pulse Rate 59 L 67 Respiratory Rate 22 H 20 Blood Pressure 118/61 118/64 Pulse Oximetry 97 96 99 Oxygen Delivery Nasal Cannula Oxygen Flow Rate 2 Fraction of Inspired Oxygen Intake/Output Intake/Output: Intake & Output 09/20/23 09/21/23 09/22/23 09/23/23 23:59 23:59 23:59 23:59 Intake Total 1750 1490 1650 440 Output Total 500 925 800 300 Balance 1250 565 850 140 Meds/Results Medications: Active Medications Generic Name Dose Route Start Last Admin Trade Name Freq PRN Reason Stop Dose Admin Acetaminophen 650 mg 09/20/23 02:40 09/22/23 21:16 Acetaminophen 325 Mg Tablet PO 650 mg Q4H PRN Administration Mild Pain (1-3) or Fever Hydrocodone Bitart/Acetaminophen 1 tab 09/20/23 09:37 09/21/23 17:18 Hydrocodone/Acetaminophen (*Crx) 10-325 Mg Tablet PO 1 tab Q6H PRN Administration Pain Rated 4-6 Albuterol 2 puff 09/20/23 09:37 Albuterol Sulfate (*Sp) Aerosol 1 Puff INHALATION Q4H PRN Shortness Of Breath Or Wheezing Artificial Tears 1 drop 09/20/23 09:52 09/22/23 17:22 Artificial Tears Ophth Soln 15 Ml Bottle EACH EYE 1 drop QID PRN Administration Dry Eyes Ascorbic Acid 500 mg 09/20/23 11:00 09/23/23 10:32 Ascorbic Acid 500 Mg Tablet PO 500 mg DAILY DARIEN Administration Aspirin 325 mg 09/20/23 11:00 09/23/23 10:33 As
--- NOTE | 2023-09-23 14:23 | PM.IMPN ---
Progress Note: A&P Assessment and Plan (1) Acute hypoxemic respiratory failure: Code(s): J96.01 - Acute respiratory failure with hypoxia Status: Acute Assessment and Plan: Patient presented with SOB and found to be hypoxic EKG without acute ST-T changes. Influenza/RSV/COVID swabs were negative. WBC of 3.4 with BUN 28 and Cr 1. Troponin elevated and climbed to 0.15. BNP elevated at 2410. Chest x-ray showed moderate pulmonary edema. Infection not excluded. CTA Ch/A/P showing no PE, normal caliber aorta without dissection, mild pulmonary edema and scattered areas of atelectasis and pleural scarring. Enlarged main pulmonary artery with cardiomegaly. Also showing hepatosplenomegaly and cholelithiasis. Consider CHF exacerbation. No evidence of PNA by imaging but consider occult infection. Consider related to severe pulm HTN/untreated ARSH. Lasix IV once in ED and again (20mg) on 09/22 Able to wean off O2 now. (2) Pulmonary edema: Qualifiers: Chronicity: acute Qualified Code(s): J81.0 - Acute pulmonary edema Code(s): J81.1 - Chronic pulmonary edema Status: Acute Assessment and Plan: Suspect pulm edema related to acute respiraoty failure. Echo with EF 65-70%, Grade II diastolic dysfunction, mild MR, moderate TR and severe pulmonary HTN. Doppler negative for DVT. She has an IVC filter in place. No PE by CTA. Resume lasix when able. (3) Pneumonia: Code(s): J18.9 - Pneumonia, unspecified organism Status: Acute Assessment and Plan: No evidence of PNA by imaging. Blood cultures NGTD. MRSA nares came back positive so IV vancomycin started. WBC normal. Procalcitonin up to 17. Concern for infection so abx started. Weaned O2 to room air (4) Elevated liver enzymes: Code(s): R74.8 - Abnormal levels of other serum enzymes Status: Acute Assessment and Plan: LFTs elevated on admission including elevated TB. AST 545ALT 339. TB up to 4.8 and all direct. LDH normal. CTA abd showing hepatosplenomegaly and cholelithiasis RUQ ultrasound shows cholelithiasis with gallbladder wall thickening HIDA scan showing retention of activity in the liver consistent with severe hepatocellular dysfunction. Gallbladder could not be evaluated. Hepatitis panel is negative. GI consulted. Elevated LFTs suspected related to volume overload and CHF and hepatic congestion. GenSurg consulted for possibl cholecystitis but felt less likely. LFTs are trending down. (5) CHA (acute kidney injury): Code(s): N17.9 - Acute kidney failure, unspecified Status: Acute Assessment and Plan: Patient with a normal renal function prior to admission and on admission. Cr climbed to 1.8 with a few doses of lasix; also exposed to contrast. Could be related as well to occult infection. Monitor renal function. 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 Assuming care. Chart reviewed. Patient slept off and on. She did wear the mask last night. She was confused overnight but better today. She does recall being confused overnight. No chest pain. She does not wear oxygen at home. She does not wear BiPAP at home
[2023-09-23] MEDS: HYDROcodone/acetaminophen (*CRX) 10-325 MG TABLET 1 TAB PO (21:00)
[2023-09-24] VITALS (14 sets, daily range): BP systolic 110–129; BP diastolic 48–69; PULSE 59–76; RESP 16–25; TEMP 36.4–36.8; O2SAT 91–99
[2023-09-24] MEDS: metroNIDAZOLE 500 MG/ISO 100ML 500 MG/100 ML BAG 100 MG IVPB ×2 (05:51→13:56)
[2023-09-24] MEDS: LEVOTHYROXINE SODIUM 88 MCG TABLET PO (05:51)
[2023-09-24] MEDS: ASPIRIN 325 MG TABLET PO (09:47)
[2023-09-24] MEDS: rOPINIRole HCL 1 MG TABLET 4 MG PO ×2 (09:47→17:51)
[2023-09-24] MEDS: VENLAFAXINE HCL XR 75 MG CAP.ER.24H 150 MG PO (09:47)
[2023-09-24] MEDS: ASCORBIC ACID 500 MG TABLET PO (09:47)
[2023-09-24] MEDS: PHENAZOPYRIDINE HCL 100 MG TABLET PO (09:47)
[2023-09-24] MEDS: THERAPEUTIC MULTIVITAMINS/MINERALS TAB (*BKC) 1 TABLET PO (09:47)
[2023-09-24] MEDS: POTASSIUM CHLORIDE 20 MEQ ER TABLET PO (09:47)
[2023-09-24] MEDS: levETIRAcetam 500 MG TABLET PO ×2 (09:47→20:31)
[2023-09-24] MEDS: GABAPENTIN 100 MG CAPSULE PO ×3 (09:47→17:51)
[2023-09-24] MEDS: PANTOPRAZOLE 40 MG TABLET PO (09:47)
[2023-09-24] MEDS: FERROUS SULFATE 325 MG TABLET DR PO (09:47)
[2023-09-24] MEDS: TOLNAFTATE 1% POWDER 45 GM BTL 1 APPLIC TOPICAL (09:48)
--- NOTE | 2023-09-24 10:21 | PM.PNCARD ---
Progress Note: A&P Assessment and Plan (1) Pulmonary edema: Qualifiers: Chronicity: acute Qualified Code(s): J81.0 - Acute pulmonary edema Code(s): J81.1 - Chronic pulmonary edema Status: Acute Assessment and Plan: Patient presented with shortness of breath, hypoxic respiratory failure requiring BiPAP support now weaned to O2. Chest x-ray and CT suggest mild pulmonary edema, however, patient more hypotensive after receiving IV Lasix with acute kidney injury. Therefore she was given IV fluid boluses and started on continuous IV infusion. She was also started on IV antibiotics for suspected pneumonia. It appears IV antibiotics have provided the most significant improvement along with supportive care. Lasix remains on hold IV fluids have been discontinued. Continue to monitor volume status very closely as she appears to be reasonably euvolemic. Wean O2 as tolerated. However, as an outpatient she was on Lasix and Metolazone and anticipate she will require re-initiation. Cardiology will sign off. Please call with any questions. (2) CHA (acute kidney injury): Code(s): N17.9 - Acute kidney failure, unspecified Status: Acute Assessment and Plan: Acute kidney injury likely secondary to hypotension, IV Lasix and contrast load. Will need to continue to monitor renal function very closely nonetheless as she did receive a contrast load on top of general medical management. Monitor urine output and blood pressure very closely. Antihypertensives are on hold for now as well as IV furosemide (3) Hypotension: Code(s): I95.9 - Hypotension, unspecified Status: Acute Assessment and Plan: Blood pressures are now stable and normotensive. Monitor closely. (4) Elevated liver enzymes: Code(s): R74.8 - Abnormal levels of other serum enzymes Status: Acute Assessment and Plan: Significant LFT elevations, workup per primary service. (5) Afib: Qualifiers: Atrial fibrillation type: paroxysmal Qualified Code(s): I48.0 - Paroxysmal atrial fibrillation Code(s): I48.91 - Unspecified atrial fibrillation Status: Acute Assessment and Plan: Maintaining sinus rhythm, intermittent pacing on telemetry. She is not a candidate for anticoagulation and has LAAO device in place. (6) PAD (peripheral artery disease): Code(s): I73.9 - Peripheral vascular disease, unspecified Status: Acute Assessment and Plan: Stable. Hold atorvastatin given significant LFT abnormalities. (7) History of left atrial appendage closure: Code(s): Z98.890 - Other specified postprocedural states Status: Acute Assessment and Plan: As above, no indication for anticoagulation. (8) Pacemaker: Code(s): Z95.0 - Presence of cardiac pacemaker Status: Acute Assessment and Plan: Normal device function, she has a Micra device by CXR. (9) Recurrent falls: Code(s): R29.6 - Repeated falls Status: Acute Assessment and Plan: Anticoagulation contraindicated. Subjective Date/time seen: 09/24/23 10:21 Interval history: Reason for visit: Pulmonary edema HPI: Patient is a pleasant 88-year-old female followed by Dr. Skinner with past medical history significant for paroxysmal atrial fibrillation, history of bradycardia status post fall with head injury 06/2023 status post micra pacemaker implantation at [place] necessitating discontinuation of systemic anticoagulation permanently, hyperlipidemia, hypertension, history of heart failure with preserved ejection fraction who states she was in her usual state of health when she began to experience progressive shortness of breath about 2 days prior to admission, history of recurrent falls recent discharge from rehabilitation 2nd right wrist fracture with complaints per family of worsening lower extremity edema and shortness of breath.? Patient was hypo
[2023-09-24 10:28] LABS: Basophils Percent Auto 0.8 % (0.2-1.2); Eosinophils Absolute Auto 0.1 K/mm3 (0-0.3); Eosinophils Percent Auto 2.3 % (0-4.4); Hematocrit 31.3 % (37.0-47.0); Hemoglobin 9.7 g/dL (12.0-15.0); Immature Granulocyte Absolute 0.02 K/mm3 (0.00-0.031); Immature Granulocyte Percent A 0.5 % (0-0.5); Lymphocytes Absolute Auto 0.44 K/mm3 (0.9-3.2); Lymphocytes Percent Auto 11.1 % (18.3-44.2); Mean Corpuscular Volume 96.9 fl (80-100); Monocytes Absolute Auto 0.5 K/mm3 (0.1-0.6); Monocytes Percent Auto 11.6 % (2.6-8.5); Neutrophils Absolute Auto 2.9 K/mm3 (1.3-6.7); Neutrophils Percent Auto 73.7 % (45.5-73.1); Platelet Count Result 123 k/mm3 (150-375); Red Blood Count 3.23 M/mm3 (4.2-5.4); Red Cell Distribution Width 16.6 % (11.5-14.5)
[2023-09-24 10:45] LABS: Ammonia 23 umol/L (9-30)
[2023-09-24 10:46] LABS: Alanine Aminotransferase 76 U/L (6-35); Alkaline Phosphatase 313 U/L (38-126); Anion Gap 12 mmol/L (8-16); Aspartate Amino Transferase 48 U/L (14-36); Blood Urea Nitrogen 54 mg/dL (7-17); Calcium 9.2 mg/dL (8.4-10.2); Carbon Dioxide 29 mmol/L (22-30); Chloride 99 mmol/L (98-107); Estimated CRCL calculation 24 ml/min; Estimated Glomerular Filt Rate 28; Glucose 150 mg/dL (65-110); Magnesium 2.1 mg/dL (1.6-2.3); Phosphorus 3.5 mg/dL (2.5-4.5); Potassium 3.7 mmol/L (3.4-5.0); Sodium 140 mmol/L (137-145)
[2023-09-24 11:21] LABS: Procalcitonin 8.3 ng/mL
[2023-09-24] MEDS: ENOXAPARIN 30 MG/0.3 ML SYRINGE SUB-Q (13:56)
--- NOTE | 2023-09-24 13:57 | WPDGIPROGNO ---
Progress Note: A&P Assessment and Plan (1) Elevated liver enzymes: Code(s): R74.8 - Abnormal levels of other serum enzymes Status: Acute Assessment and Plan: twyla is coming down most likely congestive hepatopathy with renal failure and episode of hypotension but BP stable now, wonder also if she could have underlying liver condition but liver enzymes in the past relatively normal hida scan c/w liver dysfunction supportive care (2) Pulmonary edema: Qualifiers: Chronicity: acute Qualified Code(s): J81.0 - Acute pulmonary edema Code(s): J81.1 - Chronic pulmonary edema Status: Acute Assessment and Plan: by cardiology and improved (3) CHA (acute kidney injury): Code(s): N17.9 - Acute kidney failure, unspecified Status: Acute Assessment and Plan: stable creat 1.7 (4) CHF exacerbation: Code(s): I50.9 - Heart failure, unspecified Status: Acute (5) Hypotension: Code(s): I95.9 - Hypotension, unspecified Status: Acute Assessment and Plan: BP better (6) History of atrial fibrillation: Code(s): Z86.79 - Personal history of other diseases of the circulatory system Status: Acute Subjective Date/time seen: 09/24/23 13:57 Interval history: she is slowly feeling better, right now she is not wearing oxygen and she is sitting up and eating. Still poor appetite Review of Systems Review of Systems: All systems reviewed & are unremarkable except as noted in HPI and below Exam Const: General: comfortable and tired appearing HENMT: Head: normal to inspection and normocephalic Eyes: General: appearance normal, both eyes and all related structures Neck: Neck: normal visual inspection Resp: Auscultation: diminished lung sounds Cardio: Rate: regular rate Rhythm: regular rhythm Heart sounds: Murmur heart sound present GI: Inspection: normal to inspection and distended GI Palp: No abdominal tenderness, Yes Soft to palpation, No Tenderness to palpation present (GI) and No Guarding due to palpation present (GI) Skin: General skin exam: normal color Neuro: Speech: normal speech Motor exam (neuro): 5/5 motor strength present throughout Extrem: General: pedal edema Psych: Affect: normal affect Objective Data Vital Signs Vital Signs: Vital Signs - 24 hr 09/23/23 14:25 09/23/23 14:46 09/23/23 15:37 Temperature 97.4 F L Pulse Rate 63 Respiratory Rate 20 Blood Pressure 115/58 L Pulse Oximetry 99 92 96 Oxygen Delivery Nasal Cannula Room Air Oxygen Flow Rate 2 Fraction of Inspired Oxygen 09/23/23 14:00 09/23/23 16:00 09/23/23 18:00 Temperature Pulse Rate 67 65 67 Respiratory Rate Blood Pressure Pulse Oximetry Oxygen Delivery Oxygen Flow Rate Fraction of Inspired Oxygen 09/23/23 16:00 09/23/23 20:13 09/23/23 23:01 Temperature Pulse Rate 66 68 Respiratory Rate 20 26 H Blood Pressure Pulse Oximetry 96 99 Oxygen Delivery Room Air Nasal Cannula BiPAP Oxygen Flow Rate 2 Fraction of Inspired Oxygen 28 50 09/23/23 23:22 09/23/23 23:23 09/23/23 20:00 Temperature 97.8 F 97.8 F Pulse Rate 68 68 74 Respiratory Rate 20 20 Blood Pressure 115/55 L 115/55 L Pulse Oximetry 100 100 Oxygen Delivery Oxygen Flow Rate Fraction of Inspired Oxygen 09/23/23 22:00 09/24/23 00:00 09/24/23 00:00 Temperature Pulse Rate 58 L 60 60 Respiratory Rate 25 H Blood Pressure Pulse Oximetry 99 Oxygen Delivery BiPAP Oxygen Flow Rate Fraction of Inspired Oxygen 50 09/24/23 02:00 09/24/23 04:24 09/24/23 04:00 Temperature Pulse Rate 61 65 61 Respiratory Rate 24 H Blood Pressure Pulse Oximetry 96 Oxygen Delivery Nasal Cannula Oxygen Flow Rate 2 Fraction of Inspired Oxygen 09/24/23 06:00 09/24/23 06:00 09/24/23 08:00 Temperature 97.6 F 98.3 F Pulse Rate 63 62 59 L Respiratory Rate 20 20 Blood Press
[2023-09-24] MEDS: ARTIFICIAL TEARS OPHTH SOLN 15 ML BOTTLE 1 DROP EACH EYE (14:06)
--- NOTE | 2023-09-24 15:10 | PM.IMPN ---
Progress Note: A&P Assessment and Plan (1) Acute hypoxemic respiratory failure: Code(s): J96.01 - Acute respiratory failure with hypoxia Status: Acute Assessment and Plan: Patient presented with SOB and found to be hypoxic. EKG without acute ST-T changes. Influenza/RSV/COVID swabs were negative. WBC of 3.4 with BUN 28 and Cr 1. Troponin elevated and climbed to 0.15. BNP elevated at 2410. Chest x-ray showed moderate pulmonary edema. Infection not excluded. CTA Ch/A/P showing no PE, normal caliber aorta without dissection, mild pulmonary edema and scattered areas of atelectasis and pleural scarring. Enlarged main pulmonary artery with cardiomegaly. Also showing hepatosplenomegaly and cholelithiasis. Doppler negative for DVT. She has an IVC filter in place. Probably CHF exacerbation. No evidence of PNA by imaging but consider occult infection. Consider related to severe pulm HTN/untreated ARSH. Lasix IV once in ED and again (20mg) on 09/22 but on hold since Able to wean off O2 now. (2) Pulmonary edema: Qualifiers: Chronicity: acute Qualified Code(s): J81.0 - Acute pulmonary edema Code(s): J81.1 - Chronic pulmonary edema Status: Acute Assessment and Plan: Suspect pulm edema related to acute respiratory failure. Echo with EF 65-70%, Grade II diastolic dysfunction, mild MR, moderate TR and severe pulmonary HTN. Resume lasix when able. (3) Pneumonia: Code(s): J18.9 - Pneumonia, unspecified organism Status: Acute Assessment and Plan: No evidence of PNA by imaging but improving with abx WBC normal. Procalcitonin was up to 17. Concern for infection so abx started. Blood cultures NGTD. MRSA nares came back positive so IV vancomycin started. Weaned to room air (4) Elevated liver enzymes: Code(s): R74.8 - Abnormal levels of other serum enzymes Status: Acute Assessment and Plan: LFTs elevated on admission including elevated TB. AST 545ALT 339. TB up to 4.8 and all direct. LDH normal. CTA abd showing hepatosplenomegaly and cholelithiasis RUQ ultrasound shows cholelithiasis with gallbladder wall thickening HIDA scan showing retention of activity in the liver consistent with severe hepatocellular dysfunction. Gallbladder could not be evaluated. Hepatitis panel is negative. GI consulted. Elevated LFTs suspected related to volume overload and CHF and hepatic congestion. But improving without signifincant diuresis GenSurg consulted for possible cholecystitis but felt less likely. LFTs are trending down. (5) CHA (acute kidney injury): Code(s): N17.9 - Acute kidney failure, unspecified Status: Acute Assessment and Plan: Patient with a normal renal function prior to admission and on admission. Cr climbed to 1.8 with a few doses of lasix; also exposed to contrast. Could be related as well to occult infection. Consider hepato-renal syndrome Cr elevated but stable at 1.7-1.8 range Monitor renal function. (6) Afib: Qualifiers: Atrial fibrillation type: paroxysmal Qualified Code(s): I48.0 - Paroxysmal atrial fibrillation Code(s): I48.91 - Unspecified atrial fibrillation Status: Acute Assessment and Plan: Patient had wactchman placed for AFib in 2019 Not on anticoagulation on admission Plan Hypothyroidism - TSH normal in [place]ce[place]. 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 No problems overnight. No CP. Weaned off o2 today but feels SOB at times. No abd pain. Has pain in the
[2023-09-24] MEDS: VANCOMYCIN 1,500 MG/NS 500 ML 1,500 MG/500 ML BAG 250 MG IVPB (17:52)
[2023-09-24] MEDS: EUCERIN CREAM 120 GM JAR 1 APPLIC TOPICAL (17:52)
[2023-09-24] MEDS: HYDROcodone/acetaminophen (*CRX) 5-325 MG TABLET 1 TAB PO (20:31)
[2023-09-24] MEDS: metroNIDAZOLE 500 MG TABLET PO (20:32)
[2023-09-24 21:40] LABS: Mitochondrial (M2) Ab (IgG) <=20.0 U (<=20.0)
[2023-09-25] VITALS (16 sets, daily range): BP systolic 109–138; BP diastolic 51–67; PULSE 60–109; RESP 16–22; TEMP 36.3–36.9; O2SAT 93–100
[2023-09-25 04:42] LABS: Basophils Percent Auto 0.3 % (0.2-1.2); Eosinophils Absolute Auto 0.1 K/mm3 (0-0.3); Eosinophils Percent Auto 3.4 % (0-4.4); Hematocrit 30.2 % (37.0-47.0); Hemoglobin 9.6 g/dL (12.0-15.0); Immature Granulocyte Absolute 0.03 K/mm3 (0.00-0.031); Immature Granulocyte Percent A 0.8 % (0-0.5); Immature Platelet Fraction Pct 6.1 % (0.9-11.2); Lymphocytes Absolute Auto 0.67 K/mm3 (0.9-3.2); Lymphocytes Percent Auto 17.6 % (18.3-44.2); Mean Corpuscular HGB Conc 31.8 g/dl (32-36); Mean Corpuscular Volume 94.4 fl (80-100); Mean Platelet Volume 11.4 fl (7.4-10.4); Monocytes Absolute Auto 0.6 K/mm3 (0.1-0.6); Neutrophils Absolute Auto 2.4 K/mm3 (1.3-6.7); Neutrophils Percent Auto 61.9 % (45.5-73.1); Platelet Count Result 137 k/mm3 (150-375); Red Cell Distribution Width 16.8 % (11.5-14.5); White Blood Count 3.8 K/mm3 (4.5-10.0)
[2023-09-25 05:06] LABS: Alanine Aminotransferase 62 U/L (6-35); Albumin Level 3.6 g/dL (3.5-5.1); Alkaline Phosphatase 324 U/L (38-126); Anion Gap 10 mmol/L (8-16); Aspartate Amino Transferase 42 U/L (14-36); Bilirubin,Total 2.5 mg/dL (0.2-1.3); Blood Urea Nitrogen 57 mg/dL (7-17); Calcium 9.3 mg/dL (8.4-10.2); Carbon Dioxide 29 mmol/L (22-30); Chloride 100 mmol/L (98-107); Estimated CRCL calculation 23 ml/min; Estimated Glomerular Filt Rate 27; Glucose 88 mg/dL (65-110); Potassium 3.7 mmol/L (3.4-5.0); Sodium 139 mmol/L (137-145)
[2023-09-25] MEDS: LEVOTHYROXINE SODIUM 88 MCG TABLET PO (06:20)
[2023-09-25] MEDS: metroNIDAZOLE 500 MG TABLET PO ×3 (06:20→21:09)
[2023-09-25] MEDS: levoFLOXacin 750 MG/D5W 150 ML 750 MG/150 ML BAG 100 MG IVPB (06:20)
[2023-09-25] MEDS: THERAPEUTIC MULTIVITAMINS/MINERALS TAB (*BKC) 1 TABLET PO (10:27)
[2023-09-25] MEDS: HYDROcodone/acetaminophen (*CRX) 5-325 MG TABLET 1 TAB PO ×2 (10:27→21:17)
[2023-09-25] MEDS: FERROUS SULFATE 325 MG TABLET DR PO (10:27)
[2023-09-25] MEDS: VENLAFAXINE HCL XR 75 MG CAP.ER.24H 150 MG PO (10:27)
[2023-09-25] MEDS: ASPIRIN 325 MG TABLET PO (10:27)
[2023-09-25] MEDS: ASCORBIC ACID 500 MG TABLET PO (10:27)
[2023-09-25] MEDS: POTASSIUM CHLORIDE 20 MEQ ER TABLET PO (10:27)
[2023-09-25] MEDS: PANTOPRAZOLE 40 MG TABLET PO (10:27)
[2023-09-25] MEDS: rOPINIRole HCL 1 MG TABLET 4 MG PO ×2 (10:27→16:25)
[2023-09-25] MEDS: levETIRAcetam 500 MG TABLET PO ×2 (10:28→21:09)
[2023-09-25] MEDS: EUCERIN CREAM 120 GM JAR 1 APPLIC TOPICAL (10:28)
[2023-09-25] MEDS: GABAPENTIN 100 MG CAPSULE PO ×3 (10:28→16:25)
[2023-09-25] MEDS: TOLNAFTATE 1% POWDER 45 GM BTL 1 APPLIC TOPICAL (10:28)
[2023-09-25] MEDS: ENOXAPARIN 30 MG/0.3 ML SYRINGE SUB-Q (10:28)
[2023-09-25 13:54] LABS: Anti Nuclear Antibody Pattern Nuclear, Speckled
--- NOTE | 2023-09-25 14:04 | PM.IMPN ---
Progress Note: A&P Assessment and Plan (1) Acute hypoxemic respiratory failure: Code(s): J96.01 - Acute respiratory failure with hypoxia Status: Acute Assessment and Plan: Patient presented with SOB and found to be hypoxic. EKG without acute ST-T changes. Influenza/RSV/COVID swabs were negative. WBC of 3.4 with BUN 28 and Cr 1. Troponin elevated and climbed to 0.15. BNP elevated at 2410. Chest x-ray showed moderate pulmonary edema. Infection not excluded. CTA Ch/A/P showing no PE, normal caliber aorta without dissection, mild pulmonary edema and scattered areas of atelectasis and pleural scarring. Enlarged main pulmonary artery with cardiomegaly. Also showing hepatosplenomegaly and cholelithiasis. Doppler negative for DVT. She has an IVC filter in place. Probably CHF exacerbation. No evidence of PNA by imaging but consider occult infection. Consider related to severe pulm HTN/untreated ARSH. Lasix IV once in ED and again (20mg) on 09/22 but on hold since; fluid balance positive Able to wean off O2 now so possibly infectious process. (2) Pulmonary edema: Qualifiers: Chronicity: acute Qualified Code(s): J81.0 - Acute pulmonary edema Code(s): J81.1 - Chronic pulmonary edema Status: Acute Assessment and Plan: Suspect pulm edema related to acute respiratory failure. Echo with EF 65-70%, Grade II diastolic dysfunction, mild MR, moderate TR and severe pulmonary HTN. Cr remains elevated. Resume lasix when able. (3) Pneumonia: Code(s): J18.9 - Pneumonia, unspecified organism Status: Acute Assessment and Plan: No evidence of PNA by imaging but improving with abx WBC normal. Procalcitonin was up to 17. Concern for infection so abx started. Blood cultures NGTD. MRSA nares came back positive so IV vancomycin started. Weaned to room air Complete 7 days of abx. (4) Elevated liver enzymes: Code(s): R74.8 - Abnormal levels of other serum enzymes Status: Acute Assessment and Plan: LFTs elevated on admission including elevated TB. AST 545, ALT 339. TB up to 4.8 and all direct. LDH normal. CTA abd showing hepatosplenomegaly and cholelithiasis RUQ ultrasound shows cholelithiasis with gallbladder wall thickening HIDA scan showing retention of activity in the liver consistent with severe hepatocellular dysfunction. Gallbladder could not be evaluated. Hepatitis panel is negative. GI consulted. Elevated LFTs suspected related to volume overload and CHF and hepatic congestion. But improving without significant diuresis GenSurg consulted for possible cholecystitis but felt less likely. LFTs are trending down. (5) CHA (acute kidney injury): Code(s): N17.9 - Acute kidney failure, unspecified Status: Acute Assessment and Plan: Patient with a normal renal function prior to admission and on admission. Cr climbed to 1.8 with a few doses of lasix; also exposed to contrast and abx. Could be related as well to occult infection. Consider hepato-renal syndrome Cr elevated but stable at 1.7-1.8 range Monitor renal function. Check renal studies (6) Afib: Qualifiers: Atrial fibrillation type: paroxysmal Qualified Code(s): I48.0 - Paroxysmal atrial fibrillation Code(s): I48.91 - Unspecified atrial fibrillation Status: Acute Assessment and Plan: Patient had wactchman placed for AFib in 2019 Not on anticoagulation on admission Plan Hypothyroidism - TSH normal in [place]. 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
[2023-09-25 16:11] LABS: CRP 4.7 mg/dL (<1.0); Creatine Kinase < 20 U/L (30-135)
[2023-09-25 16:15] LABS: Complement C3 81 mg/dL (88-165)
[2023-09-25 23:25] LABS: Creatinine Urine 83.7 mg/dL; Total Protein Urine Random 59 mg/dL
[2023-09-25 23:47] LABS: Sodium Urine Random 21 meq/L
[2023-09-26] VITALS (18 sets, daily range): BP systolic 105–122; BP diastolic 47–55; PULSE 60–120; RESP 16–21; TEMP 36–36.9; O2SAT 86–100; BMI 10.0
[2023-09-26 03:32] LABS: Eosinophil Urine None Seen % (None Seen)
[2023-09-26 03:33] LABS: Urine Eos QC 2nd Tech Confirmed
[2023-09-26 05:33] LABS: Basophils Percent Auto 0.5 % (0.2-1.2); Eosinophils Absolute Auto 0.1 K/mm3 (0-0.3); Eosinophils Percent Auto 2.8 % (0-4.4); Hematocrit 29.4 % (37.0-47.0); Hemoglobin 9.4 g/dL (12.0-15.0); Immature Granulocyte Absolute 0.04 K/mm3 (0.00-0.031); Immature Platelet Fraction Pct 5.8 % (0.9-11.2); Lymphocytes Absolute Auto 0.71 K/mm3 (0.9-3.2); Lymphocytes Percent Auto 17.9 % (18.3-44.2); Mean Corpuscular Hemoglobin 30.5 pg (26-34); Mean Corpuscular Volume 95.5 fl (80-100); Mean Platelet Volume 11.8 fl (7.4-10.4); Monocytes Absolute Auto 0.7 K/mm3 (0.1-0.6); Monocytes Percent Auto 17.2 % (2.6-8.5); Neutrophils Absolute Auto 2.4 K/mm3 (1.3-6.7); Neutrophils Percent Auto 60.6 % (45.5-73.1); Platelet Count Result 146 k/mm3 (150-375); Red Blood Count 3.08 M/mm3 (4.2-5.4); Red Cell Distribution Width 17.2 % (11.5-14.5)
[2023-09-26] MEDS: LEVOTHYROXINE SODIUM 88 MCG TABLET PO (05:57)
[2023-09-26] MEDS: metroNIDAZOLE 500 MG TABLET PO ×3 (05:57→22:49)
[2023-09-26 05:59] LABS: Vancomycin Trough 19.4 ug/mL (10.0-20.0)
[2023-09-26 06:10] LABS: Alanine Aminotransferase 48 U/L (6-35); Albumin Level 3.6 g/dL (3.5-5.1); Alkaline Phosphatase 265 U/L (38-126); Anion Gap 8 mmol/L (8-16); Aspartate Amino Transferase 40 U/L (14-36); Bilirubin,Total 1.9 mg/dL (0.2-1.3); Blood Urea Nitrogen 61 mg/dL (7-17); Carbon Dioxide 28 mmol/L (22-30); Chloride 102 mmol/L (98-107); Estimated CRCL calculation 28 ml/min; Estimated Glomerular Filt Rate 33; Glucose 98 mg/dL (65-110); Magnesium 2.1 mg/dL (1.6-2.3); Potassium 4.3 mmol/L (3.4-5.0); Sodium 138 mmol/L (137-145)
[2023-09-26 06:57] LABS: Anisocytosis 1+ (NORMAL); Hypochromasia 1+ (NORMAL); Platelet Estimate Adequate (Adequate); Schistocytes None Seen (NORMAL)
[2023-09-26] MEDS: ASCORBIC ACID 500 MG TABLET PO (09:34)
[2023-09-26] MEDS: PANTOPRAZOLE 40 MG TABLET PO (09:41)
[2023-09-26] MEDS: GABAPENTIN 100 MG CAPSULE PO ×2 (09:41→17:55)
[2023-09-26] MEDS: ASPIRIN 325 MG TABLET PO (09:41)
[2023-09-26] MEDS: ENOXAPARIN 30 MG/0.3 ML SYRINGE SUB-Q (09:41)
[2023-09-26] MEDS: rOPINIRole HCL 1 MG TABLET 4 MG PO ×2 (09:42→17:55)
[2023-09-26] MEDS: THERAPEUTIC MULTIVITAMINS/MINERALS TAB (*BKC) 1 TABLET PO (09:42)
[2023-09-26] MEDS: levETIRAcetam 500 MG TABLET PO ×2 (09:42→22:49)
[2023-09-26] MEDS: TOLNAFTATE 1% POWDER 45 GM BTL 1 APPLIC TOPICAL (09:42)
[2023-09-26] MEDS: POTASSIUM CHLORIDE 20 MEQ ER TABLET PO (09:42)
[2023-09-26] MEDS: VENLAFAXINE HCL XR 75 MG CAP.ER.24H 150 MG PO (09:42)
[2023-09-26] MEDS: VANCOMYCIN 1,500 MG/NS 500 ML 1,500 MG/500 ML BAG 250 MG IVPB (09:43)
[2023-09-26] MEDS: EUCERIN CREAM 120 GM JAR 1 APPLIC TOPICAL (09:43)
[2023-09-26] MEDS: FERROUS SULFATE 325 MG TABLET DR PO (09:43)
[2023-09-26] MEDS: HYDROcodone/acetaminophen (*CRX) 5-325 MG TABLET 1 TAB PO (10:28)
--- NOTE | 2023-09-26 12:59 | PM.DS ---
DS: Admitting Diagnosis Discharge Date 09/26/23 Admitting Diagnosis Shortness of breath DS: Discharge Diagnosis Discharge Diagnosis (1) Acute hypoxemic respiratory failure: Code(s): J96.01 - Acute respiratory failure with hypoxia Status: Acute (2) Pulmonary edema: Qualifiers: Chronicity: acute Qualified Code(s): J81.0 - Acute pulmonary edema Code(s): J81.1 - Chronic pulmonary edema Status: Acute (3) Pneumonia: Code(s): J18.9 - Pneumonia, unspecified organism Status: Acute (4) Elevated liver enzymes: Code(s): R74.8 - Abnormal levels of other serum enzymes Status: Acute (5) CHA (acute kidney injury): Code(s): N17.9 - Acute kidney failure, unspecified Status: Acute (6) Afib: Qualifiers: Atrial fibrillation type: paroxysmal Qualified Code(s): I48.0 - Paroxysmal atrial fibrillation Code(s): I48.91 - Unspecified atrial fibrillation Status: Acute DS: Summary Hospital Course Reason for hospitalization: 88yo female with AFib, CKD and HTN here for SOB and leg swelling. Please see H&P for details. Hospital Course: Patient presented with SOB and found to be hypoxic. EKG without acute ST-T changes.? Influenza/RSV/COVID PCR swabs were negative.?WBC of 3.4 with BUN 28 and Cr 1.? Troponin elevated and climbed to 0.15.? BNP elevated at 2410.?Chest x-ray showed moderate pulmonary edema.? Infection not excluded.?CTA Ch/A/P showing no PE, normal caliber aorta without dissection, mild pulmonary edema and scattered areas of atelectasis and pleural scarring.? Enlarged main pulmonary artery with cardiomegaly. Also showing hepatosplenomegaly and cholelithiasis. Doppler was negative for DVT. She has an IVC filter in place.?Probably CHF exacerbation since no clear evidence of PNA by imaging but consider occult infection. Consider also related to severe pulm HTN/untreated ARSH. She received Lasix IV once in ED and again (20mg) on 09/22 but no other diuretic. She was started on broad spectrum abx. BCx negative. MRSA nares returned positive. Echo with EF 65-70%, Grade II diastolic dysfunction, mild MR, moderate TR and severe pulmonary HTN. WBC normal. Procalcitonin was up to 17. Despite lack of diuresis, we were able to wean off O2. Patient with a normal renal function prior to admission and on admission. Cr climbed to 1.8 with one dose of lasix; also exposed to contrast and abx. CHA could be related as well to occult infection. Consider hepato-renal syndrome. Cr improved to 1.5. GRETCHEN positive at 1:320 speckled. LFTs also elevated on admission including elevated TB. AST 545, ALT 339. TB up to 4.8 and all direct. LDH normal. CTA abd showing hepatosplenomegaly and cholelithiasis. RUQ ultrasound shows cholelithiasis with gallbladder wall thickening. HIDA scan showing retention of activity in the liver consistent with severe hepatocellular dysfunction.? Gallbladder could not be evaluated. Hepatitis panel was negative. GI consulted. Elevated LFTs initally suspected related to volume overload and CHF and hepatic congestion but levels improved without significant diuresis. GenSurg consulted for possible cholecystitis but felt less likely. LFTs are trending down. Patient had AFib s/p watchman placed in 2018. She was not on anticoagulation on admission. TSH normal in July. We continued levothyroxine. She has a hx of brain bleed from a fall resulting in subdural hematoma in the past and hence off anticoagulation. 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 She also has seizure disorder and is on Keppra. Recent right distal radial fracture and follows with surgeon at [place]. She worked with therapy. She was refusing bipap at night at times but suspect she will need this chronically given that she has severe pulmonary HTN. May also have underlying rheumatologic disorder to explain some of these findings. She overall d
--- NOTE | 2023-09-26 19:51 | PC.NURSE ---
Spoke to son Yusef to let him know pt would be moving to room 252.
--- NOTE | 2023-09-26 20:18 | PC.NURSE ---
This patient, Zohreh Oakes, was transferred to [[facility] ] on 09/26/23 at 2005. Personal belongings sent with patient. Report given to [Latasha ]. Appropriate documentation sent with patient.
[2023-09-27] VITALS (8 sets, daily range): BP systolic 128–154; BP diastolic 53–83; PULSE 65–93; RESP 16–24; TEMP 36.6–37.5; O2SAT 91–96
[2023-09-27] MEDS: metroNIDAZOLE 500 MG TABLET PO ×3 (05:41→20:40)
[2023-09-27] MEDS: levoFLOXacin 750 MG/D5W 150 ML 750 MG/150 ML BAG 100 MG IVPB (05:41)
[2023-09-27] MEDS: CYCLOBENZAPRINE HCL 5 MG TABLET PO (05:41)
[2023-09-27] MEDS: LEVOTHYROXINE SODIUM 88 MCG TABLET PO (05:42)
[2023-09-27 06:23] LABS: Estimated CRCL calculation 30 ml/min; Estimated Glomerular Filt Rate 36
[2023-09-27] MEDS: rOPINIRole HCL 1 MG TABLET 4 MG PO ×2 (08:22→17:01)
[2023-09-27] MEDS: GABAPENTIN 100 MG CAPSULE PO ×3 (08:23→17:00)
[2023-09-27] MEDS: ASCORBIC ACID 500 MG TABLET PO (08:23)
[2023-09-27] MEDS: ENOXAPARIN 30 MG/0.3 ML SYRINGE SUB-Q (08:23)
[2023-09-27] MEDS: ASPIRIN 325 MG TABLET PO (08:23)
[2023-09-27] MEDS: FERROUS SULFATE 325 MG TABLET DR PO (08:23)
[2023-09-27] MEDS: VENLAFAXINE HCL XR 75 MG CAP.ER.24H 150 MG PO (08:23)
[2023-09-27] MEDS: TOLNAFTATE 1% POWDER 45 GM BTL 1 APPLIC TOPICAL (08:23)
[2023-09-27] MEDS: levETIRAcetam 500 MG TABLET PO ×2 (08:23→20:40)
[2023-09-27] MEDS: HYDROcodone/acetaminophen (*CRX) 5-325 MG TABLET 1 TAB PO (08:23)
[2023-09-27] MEDS: POTASSIUM CHLORIDE 20 MEQ ER TABLET PO (08:23)
[2023-09-27] MEDS: THERAPEUTIC MULTIVITAMINS/MINERALS TAB (*BKC) 1 TABLET PO (08:23)
[2023-09-27] MEDS: PANTOPRAZOLE 40 MG TABLET PO (08:23)
[2023-09-27] MEDS: EUCERIN CREAM 120 GM JAR 1 APPLIC TOPICAL (08:24)
--- NOTE | 2023-09-27 10:56 | PM.IMPN ---
Progress Note: A&P Assessment and Plan (1) Abdominal pain: Code(s): R10.9 - Unspecified abdominal pain Status: Acute Assessment and Plan: Patient now with abdominal pain. No BMs listed so consider constipation. She is somnolent but remains oriented. Suspect related to narcotics. Consider hepatic encephalopathy or CO2 narcosis. Check KUB, labs. Check ammonia level. Check ABG Start miralax. SS enema once. Stop narcotic (2) Acute hypoxemic respiratory failure: Code(s): J96.01 - Acute respiratory failure with hypoxia Status: Acute Assessment and Plan: Patient presented with SOB and found to be hypoxic. EKG without acute ST-T changes. Influenza/RSV/COVID swabs were negative. WBC of 3.4 with BUN 28 and Cr 1. Troponin elevated and climbed to 0.15. BNP elevated at 2410. Chest x-ray showed moderate pulmonary edema. Infection not excluded. CTA Ch/A/P showing no PE, normal caliber aorta without dissection, mild pulmonary edema and scattered areas of atelectasis and pleural scarring. Enlarged main pulmonary artery with cardiomegaly. Also showing hepatosplenomegaly and cholelithiasis. Doppler negative for DVT. She has an IVC filter in place. Probably CHF exacerbation. No evidence of PNA by imaging but consider occult infection. Consider related to severe pulm HTN/untreated ARSH. Lasix IV once in ED and again (20mg) on 09/22 but Lasix on hold since; fluid balance positive Able to wean off O2 now so possibly infectious process causing the respiratory issues Now refusing BiPAP so resp failure probably will recur. (3) Pulmonary edema: Qualifiers: Chronicity: acute Qualified Code(s): J81.0 - Acute pulmonary edema Code(s): J81.1 - Chronic pulmonary edema Status: Acute Assessment and Plan: Suspect pulm edema causing the acute respiratory failure. Echo with EF 65-70%, Grade II diastolic dysfunction, mild MR, moderate TR and severe pulmonary HTN. Cr trending down. Resume lasix when able. (4) Pneumonia: Code(s): J18.9 - Pneumonia, unspecified organism Status: Acute Assessment and Plan: No evidence of PNA by imaging but improving with abx WBC normal. Procalcitonin was up to 17. Concern for infection so abx started. Blood cultures NGTD. MRSA nares came back positive so IV vancomycin started. Weaned to room air Complete 7 days of abx. (5) Elevated liver enzymes: Code(s): R74.8 - Abnormal levels of other serum enzymes Status: Acute Assessment and Plan: LFTs elevated on admission including elevated TB. AST 545, ALT 339. TB up to 4.8 and all direct. LDH normal. CTA abd showing hepatosplenomegaly and cholelithiasis RUQ ultrasound shows cholelithiasis with gallbladder wall thickening HIDA scan showing retention of activity in the liver consistent with severe hepatocellular dysfunction. Gallbladder could not be evaluated. Hepatitis panel is negative. GI consulted. Elevated LFTs suspected related to volume overload and CHF and hepatic congestion. But improving without significant diuresis GenSurg consulted for possible cholecystitis but felt less likely. LFTs were trending down (6) CHA (acute kidney injury): Code(s): N17.9 - Acute kidney failure, unspecified Status: Acute Assessment and Plan: Patient with a normal renal function prior to admission and on admission. Cr climbed to 1.8 with a few doses of lasix; also exposed to contrast and abx. Could be related as well to occult infection. Consider hepato-renal syndrome Cr elevated but stable at 1.7-1.8 range Monitor renal function. Renal US pending (7) Afib: Qualifiers: Atrial fibrillation type: paroxysmal Qualified Code(s): I48.0 - Paroxysmal atrial fibrillation Code(s): I48.91 - Unspecified atrial fibrillation Status: Acute Assessment and Plan: Patient had wactchman placed for AFib in 2019 Not on anticoagu
[2023-09-27] MEDS: polyethylene glycoL 3350 17 GM POWD.PACK PO ×2 (11:28→17:00)
[2023-09-27 12:29] LABS: Basophils Percent Auto 0.4 % (0.2-1.2); Eosinophils Absolute Auto 0.1 K/mm3 (0-0.3); Eosinophils Percent Auto 0.8 % (0-4.4); Hematocrit 31.6 % (37.0-47.0); Hemoglobin 9.9 g/dL (12.0-15.0); Immature Granulocyte Absolute 0.07 K/mm3 (0.00-0.031); Immature Granulocyte Percent A 0.9 % (0-0.5); Lymphocytes Absolute Auto 0.51 K/mm3 (0.9-3.2); Lymphocytes Percent Auto 6.8 % (18.3-44.2); Mean Corpuscular HGB Conc 31.3 g/dl (32-36); Mean Corpuscular Hemoglobin 30.2 pg (26-34); Mean Corpuscular Volume 96.3 fl (80-100); Mean Platelet Volume 10.3 fl (7.4-10.4); Monocytes Absolute Auto 1.2 K/mm3 (0.1-0.6); Monocytes Percent Auto 16.6 % (2.6-8.5); Neutrophils Absolute Auto 5.6 K/mm3 (1.3-6.7); Neutrophils Percent Auto 74.5 % (45.5-73.1); Platelet Count Result 212 k/mm3 (150-375); Red Blood Count 3.28 M/mm3 (4.2-5.4); Red Cell Distribution Width 17.2 % (11.5-14.5); White Blood Count 7.5 K/mm3 (4.5-10.0)
[2023-09-27 12:41] LABS: Ammonia < 9 umol/L (9-30)
[2023-09-27 12:44] LABS: Alanine Aminotransferase 42 U/L (6-35); Alkaline Phosphatase 327 U/L (38-126); Anion Gap 6 mmol/L (8-16); Aspartate Amino Transferase 37 U/L (14-36); Bilirubin,Total 1.9 mg/dL (0.2-1.3); Blood Urea Nitrogen 56 mg/dL (7-17); CRP 3.2 mg/dL (<1.0); Calcium 9.7 mg/dL (8.4-10.2); Carbon Dioxide 29 mmol/L (22-30); Chloride 104 mmol/L (98-107); Estimated CRCL calculation 30 ml/min; Estimated Glomerular Filt Rate 36; Glucose 127 mg/dL (65-110); Lipase 111 U/L (23-300); Magnesium 2.1 mg/dL (1.6-2.3); Potassium 4.5 mmol/L (3.4-5.0); Sodium 139 mmol/L (137-145)
[2023-09-27 12:58] LABS: Procalcitonin 1.7 ng/mL
--- NOTE | 2023-09-27 13:22 | PCOTNOTE ---
Attempted to see pt for Occupational Therapy Treatment. Pt is sleeping at therapist arrival and is unable to keep awake for participation in therapy. Pt reports not sleeping last night and wanting to continue resting. Therapist educated pt on purpose of therapy session for independence with daily occupations. Pt response is mumbled and incoherent with her keeping her eyes close. Will attempt at a later time.
[2023-09-27 14:27] LABS: Alveolar/Arterial O2 Gradient 41.4 mmHg; Base Excess ABG 2.6 mEq/l (+/-2.0); Fractional Inspired Oxygen 21 %; HCO3 ABG 26.9 mEq/l (22.0-26.0); Oxygen Content ABG 13.9 %vol (16.0-22.0); Oxyhemoglobin 90.7 % THb (90.0-100.0); PCO2 ABG 40.2 mmHg (35.0-45.0); PO2 ABG 60.2 mmHg (80.0-100.0); PO2 FiO2 Ratio Arterial Blood 2.87 %; Total Hemoglobin 10.9 g/dL (12.0-18.0); pH ABG 7.443 (7.350-7.450)
[2023-09-27 14:29] LABS: Device ROOM AIR; Modified Allen's Test Pass; Site Drawn LEFT RADIAL
--- NOTE | 2023-09-27 15:22 | PCOTNOTE ---
Attempted OT evaluation, pt lying in bed. Pt reports she is tired and is barely able to keep her eyes open. Patient reports a pain in her abdomin when breathing, spoke with RN and she is aware. Educated on the benefit of therapy. Pt declined. Will attempted again tomorrow.
[2023-09-27] MEDS: VANCOMYCIN 1,500 MG/NS 500 ML 1,500 MG/500 ML BAG 250 MG IVPB (18:36)
[2023-09-28] VITALS (7 sets, daily range): BP systolic 131–187; BP diastolic 59–81; PULSE 72–86; RESP 17–20; TEMP 36.6–37.9; O2SAT 92–100; BMI 10.0
[2023-09-28] MEDS: metroNIDAZOLE 500 MG TABLET PO ×2 (06:56→13:41)
[2023-09-28] MEDS: LEVOTHYROXINE SODIUM 88 MCG TABLET PO (06:56)
[2023-09-28] MEDS: polyethylene glycoL 3350 17 GM POWD.PACK PO ×2 (09:11→16:57)
[2023-09-28] MEDS: GABAPENTIN 100 MG CAPSULE PO ×3 (09:12→16:57)
[2023-09-28] MEDS: PANTOPRAZOLE 40 MG TABLET PO (09:12)
[2023-09-28] MEDS: THERAPEUTIC MULTIVITAMINS/MINERALS TAB (*BKC) 1 TABLET PO (09:12)
[2023-09-28] MEDS: ASPIRIN 325 MG TABLET PO (09:12)
[2023-09-28] MEDS: FERROUS SULFATE 325 MG TABLET DR PO (09:13)
[2023-09-28] MEDS: ASCORBIC ACID 500 MG TABLET PO (09:13)
[2023-09-28] MEDS: VENLAFAXINE HCL XR 75 MG CAP.ER.24H 150 MG PO (09:13)
[2023-09-28] MEDS: rOPINIRole HCL 1 MG TABLET 4 MG PO ×2 (09:13→16:57)
[2023-09-28] MEDS: levETIRAcetam 500 MG TABLET PO ×2 (09:13→20:37)
[2023-09-28] MEDS: ENOXAPARIN 30 MG/0.3 ML SYRINGE SUB-Q (09:13)
[2023-09-28] MEDS: POTASSIUM CHLORIDE 20 MEQ ER TABLET PO (09:13)
[2023-09-28] MEDS: TOLNAFTATE 1% POWDER 45 GM BTL 1 APPLIC TOPICAL (09:14)
[2023-09-28] MEDS: EUCERIN CREAM 120 GM JAR 1 APPLIC TOPICAL (09:15)
[2023-09-28] MEDS: ACETAMINOPHEN 325 MG TABLET 650 MG PO (09:19)
--- NOTE | 2023-09-28 09:47 | PCNWS ---
Weekly nutritional screen. Patient is tolerating current diet with adequate intake 40-100% meals on heart healthy, low fat diet. No weight loss reported. No nutritional needs at this time.
[2023-09-28 15:38] LABS: Albumin 3.9 g/dL (3.8-4.8); Alpha 1 Globulin 0.3 g/dL (0.2-0.3); Alpha 2 Globulin 0.6 g/dL (0.5-0.9); Beta 1 Globulin 0.3 g/dL (0.4-0.6); Gamma Globulin 0.9 g/dL (0.8-1.7); Protein, Total 6.3 g/dL (6.1-8.1)
--- NOTE | 2023-09-28 16:55 | PM.IMPN ---
Progress Note: A&P Assessment and Plan (1) Abdominal pain: Code(s): R10.9 - Unspecified abdominal pain Status: Acute Assessment and Plan: Patient had abdominal pain yesterday and today. BM yesterday with treatment. Somnolence is better off the narcotics. KUB showing no acute findigs. Ammonia <9. ABG showing no elevated CO2 Hx of appendectomy. No having low grade fevers - consider atelectasis, autoimmune related, drug fever, viral Continue Miralax. Stop abx since she has completed a course Check viral panel. Doubt UTI since on abx or PNA since on abx. No hx of ESBL Monitor (2) Acute hypoxemic respiratory failure: Code(s): J96.01 - Acute respiratory failure with hypoxia Status: Acute Assessment and Plan: Patient presented with SOB and found to be hypoxic. EKG without acute ST-T changes. Influenza/RSV/COVID swabs were negative. WBC of 3.4 with BUN 28 and Cr 1. Troponin elevated and climbed to 0.15. BNP elevated at 2410. Chest x-ray showed moderate pulmonary edema. Infection not excluded. CTA Ch/A/P showing no PE, normal caliber aorta without dissection, mild pulmonary edema and scattered areas of atelectasis and pleural scarring. Enlarged main pulmonary artery with cardiomegaly. Also showing hepatosplenomegaly and cholelithiasis. Doppler negative for DVT. She has an IVC filter in place. Probably CHF exacerbation. No evidence of PNA by imaging but consider occult infection. Consider related to severe pulm HTN/untreated ARSH. Lasix IV once in ED and again (20mg) on 09/22 but Lasix on hold since; fluid balance positive Able to wean off O2 now so possibly infectious process causing the respiratory issues Wearing BiPAP intermittently. Encourage compliance. (3) Pulmonary edema: Qualifiers: Chronicity: acute Qualified Code(s): J81.0 - Acute pulmonary edema Code(s): J81.1 - Chronic pulmonary edema Status: Acute Assessment and Plan: Suspect pulm edema causing the acute respiratory failure. Echo with EF 65-70%, Grade II diastolic dysfunction, mild MR, moderate TR and severe pulmonary HTN. Cr trending down. BP better. Resume lasix at lower dose (4) Pneumonia: Code(s): J18.9 - Pneumonia, unspecified organism Status: Acute Assessment and Plan: No evidence of PNA by imaging but improving with abx WBC normal. Procalcitonin was up to 17. Concern for infection so abx started. Blood cultures NGTD. MRSA nares came back positive so IV vancomycin started. Weaned to room air Completed 7 days of abx. (5) Elevated liver enzymes: Code(s): R74.8 - Abnormal levels of other serum enzymes Status: Acute Assessment and Plan: LFTs elevated on admission including elevated TB. AST 545, ALT 339. TB up to 4.8 and all direct. LDH normal. CTA abd showing hepatosplenomegaly and cholelithiasis RUQ ultrasound shows cholelithiasis with gallbladder wall thickening HIDA scan showing retention of activity in the liver consistent with severe hepatocellular dysfunction. Gallbladder could not be evaluated. Hepatitis panel is negative. GI consulted. Elevated LFTs suspected related to volume overload and CHF and hepatic congestion. But improving without significant diuresis GenSurg consulted for possible cholecystitis but felt less likely. LFTs are trending down (6) CHA (acute kidney injury): Code(s): N17.9 - Acute kidney failure, unspecified Status: Acute Assessment and Plan: Patient with a normal renal function prior to admission and on admission. Cr climbed to 1.8 with a few doses of lasix; also exposed to contrast and abx. GRETCHEN 1:320. C3 81 (low) Could be related as well to occult infection. Consider hepato-renal syndrome. Consider autoimmune process Renal US showing 5mm echogenic focus along the dependent wall. Cr elevated but now improved to 1.4 Monitor renal function. Urology consult as outpatient (7) [place]
[2023-09-28 18:34] LABS: Influenza A QL RT-PCR Negative (Negative); Influenza B QL RT-PCR Negative (Negative); RSV RNA, RT-PCR Negative (Negative); SARS-CoV-2 RNA PCR Negative (Negative)
[2023-09-29 03:41] VITALS: BP 139/64; PULSE 72; RESP 20; TEMP 36.7; O2SAT 93
[2023-09-29 05:39] LABS: Basophils Percent Auto 0.5 % (0.2-1.2); Eosinophils Absolute Auto 0.1 K/mm3 (0-0.3); Eosinophils Percent Auto 1.1 % (0-4.4); Hematocrit 30.1 % (37.0-47.0); Hemoglobin 9.5 g/dL (12.0-15.0); Immature Granulocyte Absolute 0.04 K/mm3 (0.00-0.031); Immature Granulocyte Percent A 0.6 % (0-0.5); Lymphocytes Absolute Auto 0.67 K/mm3 (0.9-3.2); Lymphocytes Percent Auto 10.2 % (18.3-44.2); Mean Corpuscular HGB Conc 31.6 g/dl (32-36); Mean Corpuscular Hemoglobin 30.4 pg (26-34); Mean Corpuscular Volume 96.5 fl (80-100); Mean Platelet Volume 9.8 fl (7.4-10.4); Monocytes Absolute Auto 0.8 K/mm3 (0.1-0.6); Neutrophils Percent Auto 75.6 % (45.5-73.1); Platelet Count Result 229 k/mm3 (150-375); Red Blood Count 3.12 M/mm3 (4.2-5.4); Red Cell Distribution Width 17.9 % (11.5-14.5); White Blood Count 6.6 K/mm3 (4.5-10.0)
[2023-09-29] MEDS: LEVOTHYROXINE SODIUM 88 MCG TABLET PO (05:42)
[2023-09-29 06:03] LABS: Alanine Aminotransferase 27 U/L (6-35); Albumin Level 3.6 g/dL (3.5-5.1); Alkaline Phosphatase 274 U/L (38-126); Anion Gap 7 mmol/L (8-16); Aspartate Amino Transferase 26 U/L (14-36); Blood Urea Nitrogen 43 mg/dL (7-17); Calcium 9.2 mg/dL (8.4-10.2); Carbon Dioxide 28 mmol/L (22-30); Chloride 106 mmol/L (98-107); Estimated CRCL calculation 35 ml/min; Estimated Glomerular Filt Rate 43; Glucose 103 mg/dL (65-110); Potassium 4.6 mmol/L (3.4-5.0); Sodium 141 mmol/L (137-145)
[2023-09-29 06:26] LABS: CRP 13.9 mg/dL (<1.0)
[2023-09-29 08:00] VITALS: O2SAT 93
[2023-09-29] MEDS: ENOXAPARIN 30 MG/0.3 ML SYRINGE SUB-Q (09:33)
[2023-09-29] MEDS: ASPIRIN 325 MG TABLET PO (09:33)
[2023-09-29] MEDS: rOPINIRole HCL 1 MG TABLET 4 MG PO ×2 (09:34→16:42)
[2023-09-29] MEDS: VENLAFAXINE HCL XR 75 MG CAP.ER.24H 150 MG PO (09:34)
[2023-09-29] MEDS: THERAPEUTIC MULTIVITAMINS/MINERALS TAB (*BKC) 1 TABLET PO (09:34)
[2023-09-29] MEDS: PANTOPRAZOLE 40 MG TABLET PO (09:34)
[2023-09-29] MEDS: FUROSEMIDE 20 MG TABLET PO (09:34)
[2023-09-29] MEDS: ASCORBIC ACID 500 MG TABLET PO (09:34)
[2023-09-29] MEDS: GABAPENTIN 100 MG CAPSULE PO ×3 (09:34→16:42)
[2023-09-29] MEDS: FERROUS SULFATE 325 MG TABLET DR PO (09:34)
[2023-09-29] MEDS: levETIRAcetam 500 MG TABLET PO ×2 (09:34→20:18)
[2023-09-29] MEDS: POTASSIUM CHLORIDE 20 MEQ ER TABLET PO (09:34)
[2023-09-29] MEDS: EUCERIN CREAM 120 GM JAR 1 APPLIC TOPICAL (09:35)
[2023-09-29] MEDS: TOLNAFTATE 1% POWDER 45 GM BTL 1 APPLIC TOPICAL (09:36)
[2023-09-29 12:16] VITALS: BP 147/67; PULSE 68; RESP 18; TEMP 36.6; O2SAT 98
--- NOTE | 2023-09-29 15:06 | PM.DS ---
DS: Admitting Diagnosis Discharge Date 09/29/23 Admitting Diagnosis Shortness of breath DS: Discharge Diagnosis Discharge Diagnosis (1) Acute hypoxemic respiratory failure: Code(s): J96.01 - Acute respiratory failure with hypoxia Status: Acute (2) Pulmonary edema: Qualifiers: Chronicity: acute Qualified Code(s): J81.0 - Acute pulmonary edema Code(s): J81.1 - Chronic pulmonary edema Status: Acute (3) Pneumonia: Code(s): J18.9 - Pneumonia, unspecified organism Status: Acute (4) Elevated liver enzymes: Code(s): R74.8 - Abnormal levels of other serum enzymes Status: Acute (5) CHA (acute kidney injury): Code(s): N17.9 - Acute kidney failure, unspecified Status: Acute (6) Afib: Qualifiers: Atrial fibrillation type: paroxysmal Qualified Code(s): I48.0 - Paroxysmal atrial fibrillation Code(s): I48.91 - Unspecified atrial fibrillation Status: Acute (7) Abdominal pain: Code(s): R10.9 - Unspecified abdominal pain Status: Acute DS: Summary Hospital Course Reason for hospitalization: 88yo female with AFib, CKD and HTN here for SOB and leg swelling. Please see H&P for details. Hospital Course: Patient presented with SOB and found to be hypoxic. EKG without acute ST-T changes.? Influenza/RSV/COVID PCR swabs were negative.?WBC of 3.4 with BUN 28 and Cr 1.? Troponin elevated and climbed to 0.15.? BNP elevated at 2410.?Chest x-ray showed moderate pulmonary edema.? Infection not excluded.?CTA Ch/A/P showing no PE, normal caliber aorta without dissection, mild pulmonary edema and scattered areas of atelectasis and pleural scarring.? Enlarged main pulmonary artery with cardiomegaly. Also showing hepatosplenomegaly and cholelithiasis. Doppler was negative for DVT. She has an IVC filter in place.?We considered CHF exacerbation since no clear evidence of PNA by imaging but consider occult infection. Consider also related to severe pulm HTN/untreated ARSH. She received Lasix IV once in ED and again (20mg) on 09/22 but no other diuretic. She was started on broad spectrum abx. BCx negative. MRSA nares returned positive. Echo with EF 65-70%, Grade II diastolic dysfunction, mild MR, moderate TR and severe pulmonary HTN. WBC normal. Procalcitonin was up to 17. Despite lack of diuresis, we were able to wean off O2. Patient with a normal renal function prior to admission and on admission. Cr climbed to 1.8 with one dose of lasix; also exposed to contrast and abx. CHA could be related as well to occult infection. Consider hepato-renal syndrome. Cr improved to 1.2. GRETCHEN positive at 1:320 speckled; dsDNA normal. LFTs also elevated on admission including elevated TB. AST 545, ALT 339. TB up to 4.8 and all direct. LDH normal. CTA abd showing hepatosplenomegaly and cholelithiasis. RUQ ultrasound shows cholelithiasis with gallbladder wall thickening. HIDA scan showing retention of activity in the liver consistent with severe hepatocellular dysfunction.? Gallbladder could not be evaluated. Hepatitis panel was negative. GI consulted. Elevated LFTs initially suspected related to volume overload and CHF and hepatic congestion but levels improved without significant diuresis. GenSurg consulted for possible cholecystitis but felt less likely. LFTs are trending down. Patient had AFib s/p watchman placed in 2019. She was not on anticoagulation on admission. TSH normal in July. We continued levothyroxine. She has a hx of brain bleed from a fall resulting in subdural hematoma in the past and hence off anticoagulation. 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 She also has seizure disorder and is on Keppra. Recent right distal radial fracture and follows with surgeon at [facility]. She worked with therapy. She was refusing bipap at night at times but suspect she will need this chronically given that she has severe
[2023-09-29 18:05] VITALS: BP 132/71; PULSE 62; RESP 18; TEMP 36.6; O2SAT 99
[2023-09-29 19:46] VITALS: BP 118/72; PULSE 121; RESP 17; TEMP 36.3; O2SAT 99
[2023-10-01 23:06] LABS: Creatinine, Random Urine 80 mg/dL (20-275); Total Protein/Creatinine Ratio 963 mg/g creat (24-184)
--- NOTE | 2023-10-06 14:17 | PC.NURSE ---
A1AT- type is PI*CM SIF- no abnormal bands UPEP- no abnormal peaks Dr. Christiane glez.
== END 2023-09-29 20:44 | DRG 189 ==
LOC: ANHED 20:49 → ANHIMU 09-20 03:02 → ANH2MED 09-26 20:15
PROVIDERS: Internal Medicine; Internal Medicine Gastroenterology; Physician Assistant; Admitting Provider Student in an Organized Health Care Education/Training Program; Emergency Provider Physician Assistant; PCP Emergency Medicine; Visit Provider Internal Medicine
DX: J96.01 Acute respiratory failure with hypoxia (principal); J18.9 Pneumonia, unspecified organism; I50.31 Acute diastolic (congestive) heart failure; I13.0 Hypertensive heart and chronic kidney disease with heart failure and stage 1 through stage 4 chronic kidney disease, or unspecified chronic kidney disease; N17.9 Acute kidney failure, unspecified; J44.0 Chronic obstructive pulmonary disease with (acute) lower respiratory infection; I48.20 Chronic atrial fibrillation, unspecified; K80.10 Calculus of gallbladder with chronic cholecystitis without obstruction; N18.30 Chronic kidney disease, stage 3 unspecified; G47.33 Obstructive sleep apnea (adult) (pediatric); E78.5 Hyperlipidemia, unspecified; E03.9 Hypothyroidism, unspecified; M47.816 Spondylosis without myelopathy or radiculopathy, lumbar region; S62.101D Fracture of unspecified carpal bone, right wrist, subsequent encounter for fracture with routine healing; X58.XXXD Exposure to other specified factors, subsequent encounter; F32.9 Major depressive disorder, single episode, unspecified; E66.9 Obesity, unspecified; K74.60 Unspecified cirrhosis of liver; I73.9 Peripheral vascular disease, unspecified; I95.9 Hypotension, unspecified; G40.909 Epilepsy, unspecified, not intractable, without status epilepticus; T50.8X5A Adverse effect of diagnostic agents, initial encounter; B99.9 Unspecified infectious disease; D69.6 Thrombocytopenia, unspecified; R74.8 Abnormal levels of other serum enzymes; Z96.659 Presence of unspecified artificial knee joint; Z96.649 Presence of unspecified artificial hip joint; Z66 Do not resuscitate; R41.0 Disorientation, unspecified; T40.605A Adverse effect of unspecified narcotics, initial encounter; R29.6 Repeated falls; Z86.718 Personal history of other venous thrombosis and embolism; Z68.35 Body mass index [BMI] 35.0-35.9, adult; Z87.820 Personal history of traumatic brain injury; Z90.49 Acquired absence of other specified parts of digestive tract; Z79.01 Long term (current) use of anticoagulants; Z79.82 Long term (current) use of aspirin; Z95.0 Presence of cardiac pacemaker; Z87.891 Personal history of nicotine dependence; Z22.322 Carrier or suspected carrier of Methicillin resistant Staphylococcus aureus
CPT/HCPCS: 36415; 36600; 70450; 71045; 71275; 74019; 74174; 76705; 76775; 78226; 80053; 80074; 80202; 80307; 81001; 82104; 82140; 82550; 82565; 82570; 82805; 83520; 83605; 83615; 83690; 83735; 83880; 84100; 84145; 84155; 84156; 84165; 84166; 84300; 84484; 85025; 85055; 85380; 85610; 85730; 85999; 86038; 86039; 86140; 86160; 86225; 86334; 87040; 87637; 87641; 93005; 93306; 93970; 94002; 94003; 96361; 96365; 96366; 96367; 96372; 96375; 97110; 97116; 97161; 97166; 97530; 97535; 99285; A9270; A9537; G0378; J0456; J0692; J0696; J1650; J1836; J1940; J1956; J3370; J7030; J7040; P9047; Q9967

== ENCOUNTER 2023-11-18 14:40 | Outpatient (CLI) | payer MEDICARE, SELFPAY ==
[2023-11-18 15:12] LABS: Basophils Percent Auto 0.7 % (0.2-1.2); Eosinophils Absolute Auto 0.1 K/mm3 (0-0.3); Eosinophils Percent Auto 3.9 % (0-4.4); Hemoglobin 10.4 g/dL (12.0-15.0); Lymphocytes Absolute Auto 0.61 K/mm3 (0.9-3.2); Lymphocytes Percent Auto 21.7 % (18.3-44.2); Mean Corpuscular HGB Conc 30.6 g/dl (32-36); Mean Corpuscular Volume 101.5 fl (80-100); Mean Platelet Volume 9.9 fl (7.4-10.4); Monocytes Absolute Auto 0.3 K/mm3 (0.1-0.6); Neutrophils Absolute Auto 1.8 K/mm3 (1.3-6.7); Neutrophils Percent Auto 62.7 % (45.5-73.1); Platelet Count Result 143 k/mm3 (150-375); Red Blood Count 3.35 M/mm3 (4.2-5.4); Red Cell Distribution Width 17.2 % (11.5-14.5); White Blood Count 2.8 K/mm3 (4.5-10.0)
[2023-11-18 15:27] LABS: Anisocytosis 1+; Microcytosis 1+ (NORMAL); Platelet Estimate Slightly Decreased (Adequate); Schistocytes None Seen
[2023-11-18 16:47] LABS: Iron 48 ug/dL (37-170)
[2023-11-18 16:49] LABS: Alanine Aminotransferase 22 U/L (6-35); Albumin Level 4.2 g/dL (3.5-5.1); Alkaline Phosphatase 238 U/L (38-126); Anion Gap 3 mmol/L (4-12); Aspartate Amino Transferase 39 U/L (14-36); Bilirubin,Total 1.2 mg/dL (0.2-1.3); Blood Urea Nitrogen 23 mg/dL (7-17); Calcium 9.6 mg/dL (8.4-10.2); Carbon Dioxide 38 mmol/L (22-30); Chloride 100 mmol/L (98-107); Estimated Glomerular Filt Rate > 60; Glucose 114 mg/dL (65-110); Lactate Dehydrogenase 210 U/L (120-246); Potassium 4.4 mmol/L (3.4-5.0); Sodium 141 mmol/L (137-145)
[2023-11-18 16:57] LABS: Percent Iron Saturation 17 % (20-50)
[2023-11-18 18:20] LABS: Folic Acid > 20.0 ng/mL (2.76->20)
[2023-11-21 14:59] LABS: Methylmalonic Acid 248 nmol/L (87-318)
[2023-11-25 19:04] LABS: ANA Pattern Nuclear, Speckled; Anti Nuclear Antibody Titer 1:40 (Negative)
[2023-11-26 14:16] LABS: Soluble Transferrin Receptor 2.38 mg/L (0.76-1.76)
== END 2023-11-18 14:41 | disposition home or self-care (01) ==
LOC: ANHLAB 14:44
PROVIDERS: Nurse Practitioner Family; PCP Emergency Medicine; Visit Provider Internal Medicine Hematology & Oncology
DX: D64.9 Anemia, unspecified (principal); D72.819 Decreased white blood cell count, unspecified
CPT/HCPCS: 36415; 80053; 82607; 82728; 82746; 83540; 83550; 83615; 83921; 84238; 85025; 86038; 86039; 88184

== ENCOUNTER 2023-11-29 05:32 | Emergency (ER) | payer MEDICARE, SELFPAY ==
[2023-11-29] VITALS (8 sets, daily range): BP systolic 121–142; BP diastolic 55–72; PULSE 61–75; RESP 16–24; TEMP 36.7; O2SAT 89–97
--- NOTE | 2023-11-29 06:00 | PC.NURSE ---
pt AO x4 upon arrival. pt has no complaints at this time. pt verbalized refusal of IV and EKG at this time and states I am tired, when am I going home .
--- NOTE | 2023-11-29 06:05 | ED.GENADULT ---
HPI - General Adult General Chief complaint: Shortness of Breath/Dyspnea Stated complaint: SOB, ON ABX FOR PNE Time Seen by Provider: 11/29/23 06:05 History of Present Illness HPI narrative: Patient is an 88-year-old female who presents to the emergency department this morning from her extended care facility due to concern for hypoxia. Patient is currently being treated for pneumonia and is on 3 L home oxygen. The extended care facility got 1 reading that was low and when EMS arrived, patient's oxygenation was noted to be well above 90% on her 3 L. Patient informed that she does not want to be here and wants to go back home. She is currently denying any symptoms for me, stating that her breathing and shortness of breath has been improving on her oxygen and since she has been started on a treatment for this pneumonia. She has no concerns and would like to be sent back to her facility. Related Data Home Medications Medication Instructions Recorded Confirmed aspirin 325 mg tablet 325 mg PO DAILY 08/06/19 09/20/23 gabapentin 100 mg capsule 100 mg PO TID 08/13/21 09/20/23 ropinirole 4 mg tablet 4 mg PO BID 04/28/23 09/20/23 metolazone 5 mg tablet 5 mg PO DAILY 04/29/23 09/20/23 ascorbic acid (vitamin C) 500 mg 500 mg PO DAILY 08/04/23 09/20/23 tablet multivitamin,[id number]-[id number] 1 tablet PO DAILY 08/04/23 09/20/23 venlafaxine 150 mg 150 mg PO DAILY 08/04/23 09/20/23 capsule,extended release 24 hr acetaminophen 325 mg tablet 650 mg PO ONCE PRN Pain (Scale 09/20/23 09/20/23 Score 1-3) albuterol sulfate 90 mcg/actuation 2 puff inhalation Q4H PRN 09/20/23 09/20/23 aerosol inhaler (Ventolin HFA) Shortness Of Breath Or Wheezing bisacodyl 10 mg rectal suppository 10 mg RECTAL DAILY PRN Constipation 09/20/23 09/20/23 ferrous sulfate 325 mg (65 mg 325 mg PO DAILY 09/20/23 09/20/23 iron) tablet magnesium hydroxide 400 mg/5 mL 30 ml PO HS PRN Constipation 09/20/23 09/20/23 oral suspension (Milk of Magnesia) nystatin 100,000 unit/gram topical 1 applic topical DAILY 09/20/23 09/20/23 powder polyvinyl alcohol-povidone (PF) 2 drp EACH EYE QID PRN Dry Eyes 09/20/23 09/20/23 1.4 %-0.6 % eye drops in a dropperette (Refresh Classic (PF)) potassium chloride 20 mEq 20 meq PO DAILY 09/20/23 09/20/23 tablet,extended release Allergies Allergy/AdvReac Type Severity Reaction Status Date / Time Penicillins Allergy Severe Hives Verified 11/29/23 05:46 Sulfa (Sulfonamide Allergy Intermediate hives Verified 11/29/23 05:46 Antibiotics) sulfamethoxazole Allergy Hives Verified 11/29/23 05:46 [From Bactrim] trimethoprim [From Bactrim] Allergy Hives Verified 11/29/23 05:46 morphine AdvReac Intermediate Hallucinati Verified 11/29/23 05:46 ng bumetanide AdvReac Nausea Verified 11/29/23 05:46 Review of Systems Review of Systems: All systems are reviewed and are negative unless stated otherwise in the HPI. COUNTS INCLUDE 234 BEDS AT THE [facility] Past Medical History Medical History Afib patient had wactchman placed for a. fib approximately 2 yrs ago CHF exacerbation Choking Chronic a-fib Chronic pain disorder CKD (chronic kidney disease), stage III Essential (primary) hypertension Fatigue Fracture of knee prosthesis History of blood transfusion History of brain tumor History of DVT (deep vein thrombosis) HLD (hyperlipidemia) Hoarseness of voice HTN (hypertension) Hypertension Hypothyroidism (acquired) Hypothyroidism, unspecified Lumbar spondylosis Major depressive disorder, single episode, unspecified Minor head injury without loss of consciousness Numbness and tingling in left hand Obesity Other fracture of right femur, initial encounter for closed fracture PAD (peripheral artery disease) Unspecified injury of head, sequela Surgical History Surgical History Brain tumor (benign) excised H/O thyroidectomy History of append
[2023-11-29] MEDS: IPRATROPIUM 0.5 MG/ALBUTEROL SULFATE 2.5 MG AMPUL.NEB 3 ML INHALATION (06:18)
[2023-11-29] MEDS: methylPREDNISolone SOD SUCC 125 MG VIAL IM (06:33)
== END 2023-11-29 07:00 ==
LOC: ANHED 06:17
PROVIDERS: Emergency Provider Emergency Medicine; PCP Family Medicine
DX: J18.9 Pneumonia, unspecified organism (principal); I48.19 Other persistent atrial fibrillation; I50.9 Heart failure, unspecified; I13.0 Hypertensive heart and chronic kidney disease with heart failure and stage 1 through stage 4 chronic kidney disease, or unspecified chronic kidney disease; N18.30 Chronic kidney disease, stage 3 unspecified; I73.9 Peripheral vascular disease, unspecified; E78.5 Hyperlipidemia, unspecified; E89.0 Postprocedural hypothyroidism; E66.9 Obesity, unspecified; Z68.36 Body mass index [BMI] 36.0-36.9, adult; Z96.649 Presence of unspecified artificial hip joint; Z96.659 Presence of unspecified artificial knee joint; Z87.891 Personal history of nicotine dependence; Z86.718 Personal history of other venous thrombosis and embolism; Z79.82 Long term (current) use of aspirin
CPT/HCPCS: 94640; 96372; 99284; J2919

== ENCOUNTER 2023-12-01 02:58 | Inpatient (IN) | payer MEDICARE, SELFPAY ==
[2023-12-01] VITALS (31 sets, daily range): BP systolic 140–176; BP diastolic 63–96; PULSE 65–94; RESP 12–27; TEMP 36.2–36.8; O2SAT 94–100; BMI 32.1; BMI 34.1
--- NOTE | ~2023-12-01 | XR_ITS ---
Portable chest x-ray Comparison: 09/22/2023 Clinical History: Shortness of breath Findings: There is central congestive change with probable mild pulmonary edema. Underlying chronic interstitial disease is probably present. Cardiomediastinal silhouette is stable, with loop recorder . Bones and soft tissues are unremarkable. Impression: Central congestive change and probable mild pulmonary edema. Probable underlying COPD or other chronic interstitial disease. Mild cardiomegaly with loop recorder. Reviewed, dictated and finalized at location . Impression: Central congestive change and probable mild pulmonary edema. Probable underlying COPD or other chronic interstitial disease. Mild cardiomegaly with loop recorder.
--- NOTE | ~2023-12-01 | XR_ITS ---
EXAMINATION: XR chest 1V portable DATE: 12/04/2023 09:25 INDICATION: Congestive heart failure TECHNIQUE: frontal view of the chest was obtained. COMPARISON: Chest radiograph dated 12/01/2023 FINDINGS: Right lung volume is decreased with increased elevation the right hemidiaphragm. There is been some i mprovement in the bilateral diffuse increased interstitial pattern consistent with improving mild pul monary edema. Airspace opacities in the right lower lung zone superimposed over the diaphragm which c ould represent atelectasis or pneumonia. No pneumothorax or definitive pleural effusion. Cardiomegaly . Left pectoral implantable telemetry monitor. Surgical clips projecting over the base of the neck. IVC filter in the right upper quadrant. Vertebral plasties couple levels at the thoracolumbar junction. IMPRESSION: 1. Interval decrease in the diffuse increased initial pattern consistent with improving mild pulmonar y edema likely related to congestive heart failure. 2. Decreased right lung volume with elevation right hemidiaphragm and airspace opacities in the right lower lung zone most likely associated atelectasis although pneumonia not excludable. 3. Cardiomegaly. Reviewed, dictated and finalized at location B. IMPRESSION: 1. Interval decrease in the diffuse increased initial pattern consistent with i mproving mild pulmonary edema likely related to congestive heart failure. 2. Decreased right lung volume with elevation right hemidiaphragm and airspace opacities in the right lower lung zone most likely associated atelectasis altho ugh pneumonia not excludable. 3. Cardiomegaly.
--- NOTE | 2023-12-01 03:08 | ECG_ITS ---
Measurements Intervals [place] Rate: 80 P: * NH: * QRS: 12 QRSD: 112 T: 23 QT: 392 AVG RR 749 QTc: 427 QTcB 452 QTcF 431 Interpretive Statements ATRIAL FIBRILLATION MODERATE INTRAVENTRICULAR CONDUCTION DELAY [110+ ms QRS dURATION] MINIMAL ST DEPRESSION [0.025+ mV ST DEPRESSION] ABNORMAL RHYTHM ECG SEE SCANNED COPY FOR SIGNATURE MTDD
[2023-12-01 03:51] LABS: Alveolar/Arterial O2 Gradient 223.6 mmHg; Base Excess ABG 6.5 mEq/l (+/-2.0); Fractional Inspired Oxygen 60 %; HCO3 ABG 34.3 mEq/l (22.0-26.0); Oxygen Content ABG 15.7 %vol (16.0-22.0); Oxygen Saturation ABG 98.3 % (95.0-100.0); Oxyhemoglobin 96.6 % THb (90.0-100.0); PO2 FiO2 Ratio Arterial Blood 2.17 %; Total Hemoglobin 11.4 g/dL (12.0-18.0); pH ABG 7.324 (7.350-7.450)
[2023-12-01 03:52] LABS: Device NON-INVASIVE VENT; Modified Allen's Test Pass; PCO2 ABG 67.5 mmHg (35.0-45.0); Site Drawn RIGHT BRACHIAL
[2023-12-01 03:53] LABS: Non-Invasive Expiratory Pressure 6 CMH2O; Non-Invasive Inspiratory Pressure 12 CMH2O; Non-Invasive Vent Rate 12 /MIN
[2023-12-01] MEDS: methylPREDNISolone SOD SUCC 125 MG VIAL IV PUSH (04:14)
[2023-12-01 04:21] LABS: Basophils Percent Auto 0.4 % (0.2-1.2); Eosinophils Percent Auto 0.8 % (0-4.4); Hematocrit 35.8 % (37.0-47.0); Hemoglobin 10.4 g/dL (12.0-15.0); Immature Granulocyte Absolute 0.02 K/mm3 (0.00-0.031); Immature Granulocyte Percent A 0.4 % (0-0.5); Immature Platelet Fraction Pct 4.5 % (0.9-11.2); Lymphocytes Absolute Auto 0.35 K/mm3 (0.9-3.2); Lymphocytes Percent Auto 7.2 % (18.3-44.2); Mean Corpuscular HGB Conc 29.1 g/dl (32-36); Mean Corpuscular Hemoglobin 30.7 pg (26-34); Mean Corpuscular Volume 105.6 fl (80-100); Mean Platelet Volume 10.7 fl (7.4-10.4); Monocytes Absolute Auto 0.4 K/mm3 (0.1-0.6); Neutrophils Absolute Auto 4.1 K/mm3 (1.3-6.7); Neutrophils Percent Auto 83.2 % (45.5-73.1); Platelet Count Result 130 k/mm3 (150-375); Red Blood Count 3.39 M/mm3 (4.2-5.4); Red Cell Distribution Width 16.6 % (11.5-14.5); White Blood Count 4.9 K/mm3 (4.5-10.0)
--- NOTE | 2023-12-01 04:25 | ED.GENADULT ---
HPI - General Adult General Chief complaint: Shortness of Breath/Dyspnea Stated complaint: LOW O2 SAT, CPAP'd, RECENT PNE Dx History of Present Illness HPI narrative: Patient 88-year-old female who presents emergency department chief complaint of shortness of breath. Patient is resident in [facility] and was being treated for pneumonia the patient was recently started on oral antibiotics safe found the patient be saturating 88% on room air EMS found patient to be profoundly hypoxic and placed patient on CPAP. Patient does have prior history of CHF and also has had pneumonia before in the past. Related Data Home Medications Medication Instructions Recorded Confirmed aspirin 325 mg tablet 325 mg PO DAILY 08/06/19 09/20/23 gabapentin 100 mg capsule 100 mg PO TID 08/13/21 09/20/23 ropinirole 4 mg tablet 4 mg PO BID 04/28/23 09/20/23 metolazone 5 mg tablet 5 mg PO DAILY 04/29/23 09/20/23 ascorbic acid (vitamin C) 500 mg 500 mg PO DAILY 08/04/23 09/20/23 tablet multivitamin,vu-fulm-bbuaugvx 1 tablet PO DAILY 08/04/23 09/20/23 venlafaxine 150 mg 150 mg PO DAILY 08/04/23 09/20/23 capsule,extended release 24 hr acetaminophen 325 mg tablet 650 mg PO ONCE PRN Pain (Scale 09/20/23 09/20/23 Score 1-3) albuterol sulfate 90 mcg/actuation 2 puff inhalation Q4H PRN 09/20/23 09/20/23 aerosol inhaler (Ventolin HFA) Shortness Of Breath Or Wheezing bisacodyl 10 mg rectal suppository 10 mg RECTAL DAILY PRN Constipation 09/20/23 09/20/23 ferrous sulfate 325 mg (65 mg 325 mg PO DAILY 09/20/23 09/20/23 iron) tablet magnesium hydroxide 400 mg/5 mL 30 ml PO HS PRN Constipation 09/20/23 09/20/23 oral suspension (Milk of Magnesia) nystatin 100,000 unit/gram topical 1 applic topical DAILY 09/20/23 09/20/23 powder polyvinyl alcohol-povidone (PF) 2 drp EACH EYE QID PRN Dry Eyes 09/20/23 09/20/23 1.4 %-0.6 % eye drops in a dropperette (Refresh Classic (PF)) potassium chloride 20 mEq 20 meq PO DAILY 09/20/23 09/20/23 tablet,extended release Allergies Allergy/AdvReac Type Severity Reaction Status Date / Time Penicillins Allergy Severe Hives Verified 12/01/23 03:16 Sulfa (Sulfonamide Allergy Intermediate hives Verified 12/01/23 03:16 Antibiotics) sulfamethoxazole Allergy Hives Verified 12/01/23 03:16 [From Bactrim] trimethoprim [From Bactrim] Allergy Hives Verified 12/01/23 03:16 morphine AdvReac Intermediate Hallucinati Verified 12/01/23 03:16 ng bumetanide AdvReac Nausea Verified 12/01/23 03:16 Review of Systems Review of Systems: A 10 system review of systems was completed on the patient and is negative except for what is stated in the HPI. Nursing and ancillary documentation was reviewed. PMFSH Past Medical History Medical History Afib patient had wactchman placed for a. fib approximately 2 yrs ago CHF exacerbation Choking Chronic a-fib Chronic pain disorder CKD (chronic kidney disease), stage III Essential (primary) hypertension Fatigue Fracture of knee prosthesis History of blood transfusion History of brain tumor History of DVT (deep vein thrombosis) HLD (hyperlipidemia) Hoarseness of voice HTN (hypertension) Hypertension Hypothyroidism (acquired) Hypothyroidism, unspecified Lumbar spondylosis Major depressive disorder, single episode, unspecified Minor head injury without loss of consciousness Numbness and tingling in left hand Obesity Other fracture of right femur, initial encounter for closed fracture PAD (peripheral artery disease) Unspecified injury of head, sequela Surgical History Surgical History Brain tumor (benign) excised H/O thyroidectomy History of appendectomy History of back surgery History of hip replacement History of knee replacement History of repair of ruptured globe Hx of right inguinal hernia repair 06/11/22 Hx of tonsillectomy Fam
[2023-12-01 04:29] LABS: Lactic Acid Reflex 1.2 mmol/L (0.7-2.0)
[2023-12-01 04:30] LABS: Alanine Aminotransferase 23 U/L (6-35); Albumin Level 4.7 g/dL (3.5-5.1); Alkaline Phosphatase 213 U/L (38-126); Anion Gap 6 mmol/L (4-12); Aspartate Amino Transferase 38 U/L (14-36); Bilirubin,Total 1.3 mg/dL (0.2-1.3); Blood Urea Nitrogen 24 mg/dL (7-17); Calcium 9.8 mg/dL (8.4-10.2); Carbon Dioxide 35 mmol/L (22-30); Chloride 102 mmol/L (98-107); Estimated CRCL calculation 60 ml/min; Estimated Glomerular Filt Rate > 60; Glucose 123 mg/dL (65-110); Potassium 4.6 mmol/L (3.4-5.0); Sodium 143 mmol/L (137-145)
[2023-12-01 04:31] LABS: Prothrombin Time 13.9 Seconds (11.1-14.7)
[2023-12-01 04:32] LABS: Partial Thromboplastin Time 21.7 Seconds (22.3-36.8)
--- NOTE | 2023-12-01 04:34 | PC.NURSE ---
0434:[employer] Operator Helper contacted to get second set of blood cultures on the pt due to pt being a hard stick. This RN will hold antibiotic until phlebotomy gets the second set of cultures.
[2023-12-01 04:40] LABS: Anisocytosis 1+; Hypochromasia 1+; Macrocytosis 1+ (NORMAL); Ovalocytes 1+; Platelet Estimate Slightly Decreased (Adequate)
[2023-12-01 04:41] LABS: Schistocytes None Seen
[2023-12-01 04:42] LABS: Troponin I < 0.012 ng/mL (0.000-0.034)
[2023-12-01 04:46] LABS: NT Pro B Type Natriuretic Pept 5290 pg/mL (19.9-100)
[2023-12-01 05:23] LABS: Procalcitonin 0.1 ng/mL
[2023-12-01] MEDS: FUROSEMIDE INJ 40 MG/4 ML VIAL IV PUSH ×2 (06:42→15:24)
[2023-12-01] MEDS: CEFEPIME 2 GM/NS 50 ML 2 GM/50 ML BAG IVPB (06:54)
[2023-12-01 07:12] LABS: Influenza A QL RT-PCR Negative (Negative); Influenza B QL RT-PCR Negative (Negative); RSV RNA, RT-PCR Positive (Negative); SARS-CoV-2 RNA PCR Negative (Negative)
[2023-12-01 07:13] LABS: Appearance Urine Clear (Clear); Bacteria Urine None Seen /hpf; Bilirubin Urine Negative (Negative); Blood Urine Negative (Negative); Budding Yeast Urine Present /hpf; Color Urine Yellow (Yellow); Glucose Urine UA Negative (Negative); Hyaline Casts Urine Present /lpf; Ketones Urine Negative (Negative); Leukocyte Esterase Ur Trace LEU/UL (Negative); Nitrate Urine Negative (Negative); Protein Urine 2+ mg/dL (Negative); RBC Urine 0-2 /hpf (0-2); Squamous Epithelial Cell Urine None Seen /hpf (Few); Urobilinogen Urine 0.2 mg/dL (<2.0)
[2023-12-01 07:14] LABS: Add Urine Microscopic? YES
[2023-12-01 07:38] LABS: Troponin I 0.013 ng/mL (0.000-0.034)
--- NOTE | 2023-12-01 07:46 | PC.NURSE ---
Pt resting with reg resp on Bipap. Bipap settings unchanged.
[2023-12-01] MEDS: IPRATROPIUM 0.5 MG/ALBUTEROL SULFATE 2.5 MG AMPUL.NEB 3 ML INHALATION ×3 (08:02→21:01)
[2023-12-01] MEDS: VANCOMYCIN 1,250 MG/NS 250 ML 1,250 MG/250 ML BAG 166.67 MG IVPB ×2 (08:13→09:34)
--- NOTE | 2023-12-01 09:51 | ADMGEN ---
This patient, Zohreh Oakes, was admitted to IMU Room 203-01 at 0758. Patient/family oriented to hospital policies and general routines including ID bracelet, bed and alarms, visiting hours, pain management, procedures, bathroom and other care routines, personal items, smoking policy, room service/diet, and visiting hours. Information on how to activate the Rapid Response Team has been discussed. Patient/Family are encouraged to report perceived risks to care and to ask questions if they do not understand what they are told or what they should do.
[2023-12-01 09:53] LABS: Alveolar/Arterial O2 Gradient 123.8 mmHg; Base Excess ABG 4.5 mEq/l (+/-2.0); Fractional Inspired Oxygen 40 %; HCO3 ABG 31.3 mEq/l (22.0-26.0); Oxygen Content ABG 14.6 %vol (16.0-22.0); Oxygen Saturation ABG 96.7 % (95.0-100.0); Oxyhemoglobin 95.5 % THb (90.0-100.0); PCO2 ABG 58.6 mmHg (35.0-45.0); PO2 FiO2 Ratio Arterial Blood 2.35 %; Total Hemoglobin 10.8 g/dL (12.0-18.0); pH ABG 7.346 (7.350-7.450)
[2023-12-01 09:56] LABS: Device NON-INVASIVE VENT; Modified Allen's Test Pass; Site Drawn RIGHT RADIAL
[2023-12-01 09:57] LABS: Non-Invasive Expiratory Pressure 6 CMH2O; Non-Invasive Inspiratory Pressure 12 CMH2O; Non-Invasive Vent Rate 12 /MIN
[2023-12-01 09:58] LABS: MRSA (PCR) DETECTED (NOT DETECTE)
--- NOTE | 2023-12-01 10:36 | PM.IMHP ---
H&P: HPI History of Present Illness Date/Time: 12/01/23 10:36 Chief Complaint: Shortness of breath and dyspnea Narrative: This is an 88-year-old female with a significant past medical history of AFib, CHF, chronic kidney disease stage 3, essential hypertension, history of brain tumor, history of DVT, hyperlipidemia, hypothyroidism, depression, obesity, peripheral artery disease who presents to the hospital with chief complaint of shortness of breath and dyspnea. On examination today patient is alert oriented x3, lying in the bed, appears weak. She denies any fever, chills, nausea, vomiting, diarrhea, abdominal pain, chest pain, headache. She endorses shortness of breath with wheezing, nonproductive cough. Workup in the hospital included a chest x-ray which shown central congestive changes, mild pulmonary edema with underlying COPD. Initial labs shown I a hemoglobin of 10.4, white blood cell count is normal at 4.9, platelet count is 130, AST is 38, alk-phos 213, proBNP was 5290, troponin 0.013, lactate was 1.2. ABG was performed and shown pH of 7.324, pCO2 67.5, PO2 of 130, bicarb of 34.3. She was started on a CPAP and since then improved on her blood gas with a pH of 7.346, pCO2 58.6, PO2 94, bicarb 31.3. She is currently on 3 L nasal cannula with an oxygen saturation between 98-100%. A UA was performed and showed 2+ protein, trace leukocytes, 6-10 urine wbc's, urine yeast. She is MRSA positive. Respiratory panel was negative for influenza a and B and COVID however she was positive for RSV. Blood and urine cultures are pending. Last echo from 09/21/2023 was reviewed and shown normal LV systolic function with an estimated EF of 65-70%, grade 2 diastolic dysfunction, severe pulmonary hypertension with an estimated pulmonary arterial systolic pressure of 66 mmHg. Patient was given a loading dose of Solu-Medrol 125 mg IV push, 40 mg IV Lasix, started on cefepime and vancomycin while in the ED. Review of Systems Review of Systems: All systems reviewed & are unremarkable except as noted in HPI and below Constitutional: Constitutional: Reports as per HPI and Reports no additional constitutional complaints Eyes: Eyes: Reports as per HPI and Reports no additional eye complaints ENT: Reports system reviewed and no additional complaints, except as documented and Reports as per HPI Cardiovascular: Cardiovascular: Reports as per HPI and Reports no additional cardiovascular complaints Respiratory: Respiratory: Reports as per HPI and Reports no additional respiratory complaints Gastrointestinal: Gastrointestinal: Reports as per HPI and Reports no additional gastrointestinal complaints Genitourinary: Genitourinary: Reports no additional female genitourinary complaints and Reports as per HPI Musculoskeletal: Musculoskeletal: Reports no additional musculoskeletal complaints and Reports as per HPI Integumentary/Breasts: Skin/Breast: Reports system reviewed and no additional complaints, except as docu and Reports as per HPI Neurologic: Reports system reviewed and no additional complaints, except as documented and Reports as per HPI Psychiatric: Psychiatric: Reports no additional psychiatric complaints and Reports as per HPI [facility] Past Medical History Medical History Afib patient had wactchman placed for a. fib approximately 2 yrs ago CHF exacerbation Choking Chronic a-fib Chronic pain disorder CKD (chronic kidney disease), stage III Essential (primary) hypertension Fatigue Fracture of knee prosthesis History of blood transfusion History of brain tumor History of DVT (deep vein thrombosis) HLD (hyperlipidemia) Hoarseness of voice HTN (hypertension) Hypertension Hypothyroidism (acquired) Hypothyroidism, unspecified Lumbar spondylosis Major depressive disorder, single episode, unspecified Minor head injury without loss of consciousness Numbness and tingling in left hand Obesity Other f
[2023-12-01 12:15] LABS: Troponin I < 0.012 ng/mL (0.000-0.034)
[2023-12-01] MEDS: HYDROcodone/acetaminophen (*CRX) 10-325 MG TABLET 1 TAB PO (12:17)
[2023-12-01] MEDS: rOPINIRole HCL 1 MG TABLET 4 MG PO ×2 (12:17→20:17)
--- NOTE | 2023-12-01 14:30 | PC.NURSE ---
Pt ripped BiPAP off. RN to room to talk with patient. Pt refusing to wear BiPAP. I can't breathe with all that air in my face. If you can get me one of the ones that goes in my nose, that would be better. I can't use this one. RN explained to patient issues that may arise with not wearing the BiPAP, as well as encouraging patient to place BiPAP back on to help with her breathing. Pt still refusing to wear BiPAP. RN placed pt back on 3L NC and informed LAKISHA Nelson of the situation.
[2023-12-01] MEDS: GABAPENTIN 100 MG CAPSULE PO ×2 (15:23→20:20)
[2023-12-01] MEDS: methylPREDNISolone SOD SUCC 125 MG VIAL 60 MG IV PUSH ×2 (15:24→23:07)
[2023-12-01] MEDS: ATORVASTATIN 10 MG TABLET PO (20:18)
[2023-12-01] MEDS: MELATONIN 5 MG TABLET PO (20:18)
[2023-12-01] MEDS: HALOPERIDOL 0.5 MG TABLET PO (20:18)
[2023-12-01] MEDS: LORazepam INJ (*CRX) 2 MG/ML VIAL 1 MG IV PUSH (23:07)
--- NOTE | 2023-12-01 23:47 | PC.NURSE ---
At 1930 pt. was trying to climb out of bed and was very anxious. Rn karishma and pt's granddaughter all in room trying to explain to pt. the importance of staying in bed. The pt. states that this is not her room that she was in this morning with the pretty curtains. The pt. was yelling at this time and threaten to hit the rn with her call light if the rn did not move the pt. to her room . Dr. Garcia was called and updated on pt's status. Ativan 1mg iv push was ordered for the pt.
[2023-12-02] VITALS (31 sets, daily range): BP systolic 110–156; BP diastolic 55–93; PULSE 62–94; RESP 16–45; TEMP 36.1–36.8; O2SAT 94–100; BMI 33.9
--- NOTE | 2023-12-02 00:04 | PC.NURSE ---
At 2019 the pt. agreed to take her home meds if the granddaughter would be there with her. The pt. is less anxious at this time.
--- NOTE | 2023-12-02 00:09 | PC.NURSE ---
At 2300 the pt. stated that she does not have enough air and can't breath. The nurse offered to put the bipap on and the pt. wanted something to help her sleep with the bipap. The ativan was given at this time and the bipap was placed on the pt.
[2023-12-02] MEDS: IPRATROPIUM 0.5 MG/ALBUTEROL SULFATE 2.5 MG AMPUL.NEB 3 ML INHALATION ×4 (03:00→20:00)
[2023-12-02 04:36] LABS: Hematocrit 29.8 % (37.0-47.0); Immature Granulocyte Absolute 0.01 K/mm3 (0.00-0.031); Immature Granulocyte Percent A 0.6 % (0-0.5); Lymphocytes Absolute Auto 0.11 K/mm3 (0.9-3.2); Lymphocytes Percent Auto 6.1 % (18.3-44.2); Mean Corpuscular HGB Conc 30.2 g/dl (32-36); Mean Corpuscular Hemoglobin 31.3 pg (26-34); Mean Corpuscular Volume 103.5 fl (80-100); Mean Platelet Volume 10.7 fl (7.4-10.4); Monocytes Absolute Auto 0.1 K/mm3 (0.1-0.6); Monocytes Percent Auto 6.1 % (2.6-8.5); Neutrophils Absolute Auto 1.6 K/mm3 (1.3-6.7); Neutrophils Percent Auto 87.2 % (45.5-73.1); Platelet Count Result 104 k/mm3 (150-375); Red Blood Count 2.88 M/mm3 (4.2-5.4); Red Cell Distribution Width 16.2 % (11.5-14.5)
[2023-12-02 04:45] LABS: Alveolar/Arterial O2 Gradient 50.3 mmHg; Fractional Inspired Oxygen 28 %; HCO3 ABG 33.3 mEq/l (22.0-26.0); Oxygen Saturation ABG 93.9 % (95.0-100.0); Oxyhemoglobin 93.4 % THb (90.0-100.0); PO2 ABG 75.2 mmHg (80.0-100.0); PO2 FiO2 Ratio Arterial Blood 2.69 %; Total Hemoglobin 11.4 g/dL (12.0-18.0); pH ABG 7.342 (7.350-7.450)
[2023-12-02 04:47] LABS: Modified Allen's Test Pass; PCO2 ABG 62.8 mmHg (35.0-45.0); Site Drawn RIGHT RADIAL
[2023-12-02 04:48] LABS: Device NASAL CANNULA
[2023-12-02 04:56] LABS: Alanine Aminotransferase 19 U/L (6-35); Albumin Level 3.9 g/dL (3.5-5.1); Alkaline Phosphatase 174 U/L (38-126); Anion Gap 1 mmol/L (4-12); Aspartate Amino Transferase 25 U/L (14-36); Bilirubin,Total 0.9 mg/dL (0.2-1.3); Blood Urea Nitrogen 26 mg/dL (7-17); Calcium 9.1 mg/dL (8.4-10.2); Carbon Dioxide 37 mmol/L (22-30); Chloride 100 mmol/L (98-107); Estimated CRCL calculation 58 ml/min; Estimated Glomerular Filt Rate > 60; Glucose 175 mg/dL (65-110); NT Pro B Type Natriuretic Pept 6950 pg/mL (19.9-100); Potassium 4.4 mmol/L (3.4-5.0); Sodium 138 mmol/L (137-145)
[2023-12-02 05:05] LABS: White Blood Count 1.8 K/mm3 (4.5-10.0)
[2023-12-02 05:06] LABS: Hypochromasia 1+; Ovalocytes 1+; Platelet Estimate Slightly Decreased (Adequate); Schistocytes None Seen
[2023-12-02] MEDS: methylPREDNISolone SOD SUCC 125 MG VIAL 60 MG IV PUSH ×2 (06:13→15:01)
[2023-12-02] MEDS: LEVOTHYROXINE SODIUM 88 MCG TABLET PO (06:13)
[2023-12-02] MEDS: GABAPENTIN 100 MG CAPSULE PO ×3 (06:13→20:59)
[2023-12-02] MEDS: ENOXAPARIN 40 MG/0.4 ML SYRINGE SUB-Q (08:49)
[2023-12-02] MEDS: THERAPEUTIC MULTIVITAMINS/MINERALS TAB (*BKC) 1 TABLET PO (08:49)
[2023-12-02] MEDS: ASPIRIN 325 MG TABLET PO (08:49)
[2023-12-02] MEDS: rOPINIRole HCL 1 MG TABLET 4 MG PO ×2 (08:49→20:56)
[2023-12-02] MEDS: VENLAFAXINE HCL XR 75 MG CAP.ER.24H 225 MG PO (08:49)
[2023-12-02] MEDS: FERROUS SULFATE 325 MG TABLET DR PO (08:49)
[2023-12-02] MEDS: PANTOPRAZOLE 40 MG TABLET PO (08:49)
[2023-12-02] MEDS: ASCORBIC ACID 500 MG TABLET PO (08:49)
[2023-12-02] MEDS: polyethylene glycoL 3350 17 GM POWD.PACK PO (08:50)
[2023-12-02] MEDS: FUROSEMIDE INJ 40 MG/4 ML VIAL IV PUSH ×2 (08:50→17:30)
[2023-12-02] MEDS: TOLNAFTATE 1% POWDER 45 GM BTL 1 APPLIC TOPICAL ×2 (08:50→20:57)
--- NOTE | 2023-12-02 10:23 | P.PNIM_ITS ---
Progress Note: A&P Assessment and Plan (1) Acute respiratory failure with hypoxia and hypercapnia: Code(s): J96.01 - Acute respiratory failure with hypoxia; J96.02 - Acute respiratory failure with hypercapnia Status: Acute Assessment and Plan: 12/01/23: * Patient is a resident of [facility] and she was found to be with an oxygen sat of 88% on room air. EMS placed her on a CPAP. * ABG showing hypercapnia * She was given 40 mg IV Lasix in the ED * She was also given 125 mg IV push of Solu-Medrol * Respiratory panel was positive for RSV * She is MRSA positive * Chest x-ray showing pulmonary edema and COPD changes * She was given vancomycin and cefepime in the ED * Continue Solu-Medrol 60 mg IV push Q 8 hours * DuoNebs ordered * Procalcitonin 0.1, lactic acid 1.2, white blood cell count was normal at 4.9, chest x-ray showing more congestive heart changes and pneumonia, she tested positive for RSV-we will deescalate antibiotics at this time * Lungs coarse to auscultation with wheezing noted throughout all lung monteiro post breathing treatment, patient is tachypneic, with use of accessory muscles. She was placed back on cpap at this time. We will also give another dose of Lasix 40 mg IV x1 now * Continue Lasix 40 mg b.i.d. for continued diuresis 12/02/2023: * Continue Lasix 40 mg b.i.d. continue diuresis * Lungs are still coarse to auscultation, she is still requiring 3 L nasal cannula and has been refusing the BiPAP * Continue with current treatment plan (2) Pulmonary edema: Qualifiers: Chronicity: acute Qualified Code(s): J81.0 - Acute pulmonary edema Code(s): J81.1 - Chronic pulmonary edema Status: Acute Assessment and Plan: * See above (3) CHF (congestive heart failure): Qualifiers: Heart failure chronicity: acute on chronic Heart failure type: unspecified Qualified Code(s): I50.9 - Heart failure, unspecified Code(s): I50.9 - Heart failure, unspecified Status: Acute Assessment and Plan: 12/01/23: * Last echo reviewed from 09/21/2023 which shown normal LV systolic function with an estimated EF of 65-70%, grade 2 diastolic dysfunction, severe pulmonary hypertension with an estimated pulmonary arterial systolic pressure of 66 mmHg. * Patient was given 40 mg of IV Lasix in the ED * ProBNP 5290 * Troponin 0.013, 0.012 12/02/2023: * ProBNP 6950 * Continue with Lasix 40 mg b.i.d. * Troponin negative x3 (4) Pancytopenia: Code(s): D61.818 - Other pancytopenia Status: Acute Assessment and Plan: 12/02/2023: * White blood cell count this morning 1.8, RBC 2.88, hemoglobin 9.0, platelet count 104 * We will recheck her CBC now * If no improvement in the next 24 hours we will consult Hematology (5) Hypothyroidism, unspecified: Code(s): E03.9 - Hypothyroidism, unspecified Status: Acute Assessment and Plan: 12/01/23: * Continue Synthroid 12/02/2023: * No change to current treatment plan (6) HLD (hyperlipidemia): Qualifiers: Hyperlipidemia type: mixed hyperlipidemia Qualified Code(s): E78.2 - Mixed hyperlipidemia Code(s): E78.5 - Hyperlipidemia, unspecified Status: Acute Assessment and Plan: 12/01/23: * Continue aspirin and atorvastatin 12/02/2023: * No change to current treatment plan (7) Depression: Code(s): F32.A - Depression, unspecified Status: Acute Assessment and Plan: 12/01/23: * Continue Effexor 12/02/2023: * No change to cur
--- NOTE | 2023-12-02 10:23 | PM.IMPN ---
Progress Note: A&P Assessment and Plan (1) Acute respiratory failure with hypoxia and hypercapnia: Code(s): J96.01 - Acute respiratory failure with hypoxia; J96.02 - Acute respiratory failure with hypercapnia Status: Acute Assessment and Plan: 12/01/23: Patient is a resident of [facility] and she was found to be with an oxygen sat of 88% on room air. EMS placed her on a CPAP. ABG showing hypercapnia She was given 40 mg IV Lasix in the ED She was also given 125 mg IV push of Solu-Medrol Respiratory panel was positive for RSV She is MRSA positive Chest x-ray showing pulmonary edema and COPD changes She was given vancomycin and cefepime in the ED Continue Solu-Medrol 60 mg IV push Q 8 hours DuoNebs ordered Procalcitonin 0.1, lactic acid 1.2, white blood cell count was normal at 4.9, chest x-ray showing more congestive heart changes and pneumonia, she tested positive for RSV-we will deescalate antibiotics at this time Lungs coarse to auscultation with wheezing noted throughout all lung monteiro post breathing treatment, patient is tachypneic, with use of accessory muscles. She was placed back on cpap at this time. We will also give another dose of Lasix 40 mg IV x1 now Continue Lasix 40 mg b.i.d. for continued diuresis 12/02/2023: Continue Lasix 40 mg b.i.d. continue diuresis Lungs are still coarse to auscultation, she is still requiring 3 L nasal cannula and has been refusing the BiPAP Continue with current treatment plan (2) Pulmonary edema: Qualifiers: Chronicity: acute Qualified Code(s): J81.0 - Acute pulmonary edema Code(s): J81.1 - Chronic pulmonary edema Status: Acute Assessment and Plan: See above (3) CHF (congestive heart failure): Qualifiers: Heart failure chronicity: acute on chronic Heart failure type: unspecified Qualified Code(s): I50.9 - Heart failure, unspecified Code(s): I50.9 - Heart failure, unspecified Status: Acute Assessment and Plan: 12/01/23: Last echo reviewed from 09/21/2023 which shown normal LV systolic function with an estimated EF of 65-70%, grade 2 diastolic dysfunction, severe pulmonary hypertension with an estimated pulmonary arterial systolic pressure of 66 mmHg. Patient was given 40 mg of IV Lasix in the ED ProBNP 5290 Troponin 0.013, 0.012 12/02/2023: ProBNP 6950 Continue with Lasix 40 mg b.i.d. Troponin negative x3 (4) Pancytopenia: Code(s): D61.818 - Other pancytopenia Status: Acute Assessment and Plan: 12/02/2023: White blood cell count this morning 1.8, RBC 2.88, hemoglobin 9.0, platelet count 104 We will recheck her CBC now If no improvement in the next 24 hours we will consult Hematology (5) Hypothyroidism, unspecified: Code(s): E03.9 - Hypothyroidism, unspecified Status: Acute Assessment and Plan: 12/01/23: Continue Synthroid 12/02/2023: No change to current treatment plan (6) HLD (hyperlipidemia): Qualifiers: Hyperlipidemia type: mixed hyperlipidemia Qualified Code(s): E78.2 - Mixed hyperlipidemia Code(s): E78.5 - Hyperlipidemia, unspecified Status: Acute Assessment and Plan: 12/01/23: Continue aspirin and atorvastatin 12/02/2023: No change to current treatment plan (7) Depression: Code(s): F32.A - Depression, unspecified Status: Acute Assessment and Plan: 12/01/23: Continue Effexor 12/02/2023: No change to current treatment plan (8) UTI (urinary tract infection): Code(s): N39.0 - Urinary tract infection, site not specified Status: Acute Assessment and Plan: 12/01/23: UA showing 2+ urine protein, trace leukocytes, 6-10 urine WBC, urine yeast Patient has no symptoms of a urinary tract infection Urine culture is pending 12/02/23: Urine cultures pending Blood culture showing no growth to date on preliminary read (9) Obesity: Code(s):
[2023-12-02 10:45] LABS: Procalcitonin 0.1 ng/mL
[2023-12-02 11:00] LABS: Hematocrit 31.9 % (37.0-47.0); Hemoglobin 9.7 g/dL (12.0-15.0); Mean Corpuscular HGB Conc 30.4 g/dl (32-36); Mean Corpuscular Hemoglobin 31.3 pg (26-34); Mean Corpuscular Volume 102.9 fl (80-100); Mean Platelet Volume 10.3 fl (7.4-10.4); Platelet Count Result 108 k/mm3 (150-375); Red Cell Distribution Width 16.3 % (11.5-14.5); White Blood Count 2.7 K/mm3 (4.5-10.0)
[2023-12-02] MEDS: ATORVASTATIN 10 MG TABLET PO (20:56)
[2023-12-02] MEDS: HALOPERIDOL 0.5 MG TABLET PO (20:56)
[2023-12-02] MEDS: MELATONIN 5 MG TABLET PO (20:57)
[2023-12-03] VITALS (21 sets, daily range): BP systolic 104–148; BP diastolic 56–77; PULSE 63–105; RESP 12–24; TEMP 36.5–36.8; O2SAT 96–100
[2023-12-03] MEDS: HYDROcodone/acetaminophen (*CRX) 10-325 MG TABLET 1 TAB PO ×2 (00:10→21:02)
[2023-12-03] MEDS: guaiFENesin 200 MG/10 ML UDC 300 MG PO (00:10)
[2023-12-03] MEDS: methylPREDNISolone SOD SUCC 125 MG VIAL 60 MG IV PUSH ×4 (00:11→23:10)
[2023-12-03] MEDS: IPRATROPIUM 0.5 MG/ALBUTEROL SULFATE 2.5 MG AMPUL.NEB 3 ML INHALATION ×4 (01:05→21:07)
[2023-12-03 04:53] LABS: Hematocrit 34.8 % (37.0-47.0); Hemoglobin 10.3 g/dL (12.0-15.0); Immature Granulocyte Absolute 0.01 K/mm3 (0.00-0.031); Immature Granulocyte Percent A 0.3 % (0-0.5); Immature Platelet Fraction Pct 5.6 % (0.9-11.2); Lymphocytes Absolute Auto 0.11 K/mm3 (0.9-3.2); Lymphocytes Percent Auto 2.9 % (18.3-44.2); Mean Corpuscular HGB Conc 29.6 g/dl (32-36); Mean Corpuscular Hemoglobin 31.4 pg (26-34); Mean Corpuscular Volume 106.1 fl (80-100); Mean Platelet Volume 10.9 fl (7.4-10.4); Monocytes Absolute Auto 0.2 K/mm3 (0.1-0.6); Monocytes Percent Auto 5.8 % (2.6-8.5); Neutrophils Absolute Auto 3.4 K/mm3 (1.3-6.7); Platelet Count Result 111 k/mm3 (150-375); Red Blood Count 3.28 M/mm3 (4.2-5.4); Red Cell Distribution Width 16.3 % (11.5-14.5); White Blood Count 3.8 K/mm3 (4.5-10.0)
[2023-12-03 05:27] LABS: Alanine Aminotransferase 21 U/L (6-35); Albumin Level 4.6 g/dL (3.5-5.1); Alkaline Phosphatase 201 U/L (38-126); Anion Gap 9 mmol/L (4-12); Aspartate Amino Transferase 30 U/L (14-36); Blood Urea Nitrogen 37 mg/dL (7-17); Calcium 9.9 mg/dL (8.4-10.2); Carbon Dioxide 33 mmol/L (22-30); Chloride 99 mmol/L (98-107); Estimated CRCL calculation 46 ml/min; Estimated Glomerular Filt Rate 59; Glucose 156 mg/dL (65-110); Potassium 4.4 mmol/L (3.4-5.0); Sodium 141 mmol/L (137-145)
[2023-12-03] MEDS: GABAPENTIN 100 MG CAPSULE PO ×3 (06:12→21:02)
[2023-12-03] MEDS: LEVOTHYROXINE SODIUM 88 MCG TABLET PO (06:12)
--- NOTE | 2023-12-03 08:19 | P.PNIM_ITS ---
Progress Note: A&P Assessment and Plan (1) Acute respiratory failure with hypoxia and hypercapnia: Code(s): J96.01 - Acute respiratory failure with hypoxia; J96.02 - Acute respiratory failure with hypercapnia Status: Acute Assessment and Plan: 12/01/23: * Patient is a resident of [facility] and she was found to be with an oxygen sat of 88% on room air. EMS placed her on a CPAP. * ABG showing hypercapnia * She was given 40 mg IV Lasix in the ED * She was also given 125 mg IV push of Solu-Medrol * Respiratory panel was positive for RSV * She is MRSA positive * Chest x-ray showing pulmonary edema and COPD changes * She was given vancomycin and cefepime in the ED * Continue Solu-Medrol 60 mg IV push Q 8 hours * DuoNebs ordered * Procalcitonin 0.1, lactic acid 1.2, white blood cell count was normal at 4.9, chest x-ray showing more congestive heart changes and pneumonia, she tested positive for RSV-we will deescalate antibiotics at this time * Lungs coarse to auscultation with wheezing noted throughout all lung monteiro post breathing treatment, patient is tachypneic, with use of accessory muscles. She was placed back on cpap at this time. We will also give another dose of Lasix 40 mg IV x1 now * Continue Lasix 40 mg b.i.d. for continued diuresis 12/02/2023: * Continue Lasix 40 mg b.i.d. continue diuresis * Lungs are still coarse to auscultation, she is still requiring 3 L nasal cannula and has been refusing the BiPAP * Continue with current treatment plan 12/03/23: * Will give extra dose of Lasix now in between her b.i.d. dosing for additional ray diuresis * Lung sounds have improved, she does have at least 2+ pitting edema to bilateral lower extremities * Will obtain a chest x-ray tomorrow * Recheck BNP tomorrow * Continue PT and OT * Continue DuoNebs (2) Pulmonary edema: Qualifiers: Chronicity: acute Qualified Code(s): J81.0 - Acute pulmonary edema Code(s): J81.1 - Chronic pulmonary edema Status: Acute Assessment and Plan: * See above (3) CHF (congestive heart failure): Qualifiers: Heart failure chronicity: acute on chronic Heart failure type: unspecified Qualified Code(s): I50.9 - Heart failure, unspecified Code(s): I50.9 - Heart failure, unspecified Status: Acute Assessment and Plan: 12/01/23: * Last echo reviewed from 09/21/2023 which shown normal LV systolic function with an estimated EF of 65-70%, grade 2 diastolic dysfunction, severe pulmonary hypertension with an estimated pulmonary arterial systolic pressure of 66 mmHg. * Patient was given 40 mg of IV Lasix in the ED * ProBNP 5290 * Troponin 0.013, 0.012 12/02/2023: * ProBNP 6950 * Continue with Lasix 40 mg b.i.d. * Troponin negative x3 12/03/23: * No change to current treatment plan (4) Pancytopenia: Code(s): D61.818 - Other pancytopenia Status: Acute Assessment and Plan: 12/02/2023: * White blood cell count this morning 1.8, RBC 2.88, hemoglobin 9.0, platelet count 104 * We will recheck her CBC now * If no improvement in the next 24 hours we will consult Hematology 12/03/23: * WBC 3.8, RBC 3.28, HGB 10.3, PLT 111 * Showing improvement (5) Hypothyroidism, unspecified: Code(s): E03.9 - Hypothyroidism, unspecified Status: Acute Assessment and Plan: 12/01/23: * Continue Synthroid 12/02/2023: * No change to current treatment plan (6) HLD (hyperlipidemia): Qualifiers: Hyperlipidemia type: mixed hyperlipidemia Qu
--- NOTE | 2023-12-03 08:19 | PM.IMPN ---
Progress Note: A&P Assessment and Plan (1) Acute respiratory failure with hypoxia and hypercapnia: Code(s): J96.01 - Acute respiratory failure with hypoxia; J96.02 - Acute respiratory failure with hypercapnia Status: Acute Assessment and Plan: 12/01/23: Patient is a resident of [facility] and she was found to be with an oxygen sat of 88% on room air. EMS placed her on a CPAP. ABG showing hypercapnia She was given 40 mg IV Lasix in the ED She was also given 125 mg IV push of Solu-Medrol Respiratory panel was positive for RSV She is MRSA positive Chest x-ray showing pulmonary edema and COPD changes She was given vancomycin and cefepime in the ED Continue Solu-Medrol 60 mg IV push Q 8 hours DuoNebs ordered Procalcitonin 0.1, lactic acid 1.2, white blood cell count was normal at 4.9, chest x-ray showing more congestive heart changes and pneumonia, she tested positive for RSV-we will deescalate antibiotics at this time Lungs coarse to auscultation with wheezing noted throughout all lung monteiro post breathing treatment, patient is tachypneic, with use of accessory muscles. She was placed back on cpap at this time. We will also give another dose of Lasix 40 mg IV x1 now Continue Lasix 40 mg b.i.d. for continued diuresis 12/02/2023: Continue Lasix 40 mg b.i.d. continue diuresis Lungs are still coarse to auscultation, she is still requiring 3 L nasal cannula and has been refusing the BiPAP Continue with current treatment plan 12/03/23: Will give extra dose of Lasix now in between her b.i.d. dosing for additional ray diuresis Lung sounds have improved, she does have at least 2+ pitting edema to bilateral lower extremities Will obtain a chest x-ray tomorrow Recheck BNP tomorrow Continue PT and OT Continue Karlee (2) Pulmonary edema: Qualifiers: Chronicity: acute Qualified Code(s): J81.0 - Acute pulmonary edema Code(s): J81.1 - Chronic pulmonary edema Status: Acute Assessment and Plan: See above (3) CHF (congestive heart failure): Qualifiers: Heart failure chronicity: acute on chronic Heart failure type: unspecified Qualified Code(s): I50.9 - Heart failure, unspecified Code(s): I50.9 - Heart failure, unspecified Status: Acute Assessment and Plan: 12/01/23: Last echo reviewed from 09/21/2023 which shown normal LV systolic function with an estimated EF of 65-70%, grade 2 diastolic dysfunction, severe pulmonary hypertension with an estimated pulmonary arterial systolic pressure of 66 mmHg. Patient was given 40 mg of IV Lasix in the ED ProBNP 5290 Troponin 0.013, 0.012 12/02/2023: ProBNP 6950 Continue with Lasix 40 mg b.i.d. Troponin negative x3 12/03/23: No change to current treatment plan (4) Pancytopenia: Code(s): D61.818 - Other pancytopenia Status: Acute Assessment and Plan: 12/02/2023: White blood cell count this morning 1.8, RBC 2.88, hemoglobin 9.0, platelet count 104 We will recheck her CBC now If no improvement in the next 24 hours we will consult Hematology 12/03/23: WBC 3.8, RBC 3.28, HGB 10.3, PLT 111 Showing improvement (5) Hypothyroidism, unspecified: Code(s): E03.9 - Hypothyroidism, unspecified Status: Acute Assessment and Plan: 12/01/23: Continue Synthroid 12/02/2023: No change to current treatment plan (6) HLD (hyperlipidemia): Qualifiers: Hyperlipidemia type: mixed hyperlipidemia Qualified Code(s): E78.2 - Mixed hyperlipidemia Code(s): E78.5 - Hyperlipidemia, unspecified Status: Acute Assessment and Plan: 12/01/23: Continue aspirin and atorvastatin 12/02/2023: No change to current treatment plan (7) Depression: Code(s): F32.A - Depression, unspecified Status: Acute Assessment and Plan: 12/01/23: Continue Effexor 12/02/2023: No change to current treatment plan (8) UTI (urinary tract infe
[2023-12-03 09:21] LABS: Alveolar/Arterial O2 Gradient 57.1 mmHg; Base Excess ABG 5.6 mEq/l (+/-2.0); Fractional Inspired Oxygen 28 %; HCO3 ABG 32.5 mEq/l (22.0-26.0); Oxygen Content ABG 14.6 %vol (16.0-22.0); Oxygen Saturation ABG 93.5 % (95.0-100.0); PCO2 ABG 59.6 mmHg (35.0-45.0); PO2 ABG 72.2 mmHg (80.0-100.0); PO2 FiO2 Ratio Arterial Blood 2.58 %; Total Hemoglobin 11.1 g/dL (12.0-18.0); pH ABG 7.354 (7.350-7.450)
[2023-12-03 09:22] LABS: Device NASAL CANNULA; Modified Allen's Test Pass; Site Drawn LEFT RADIAL
[2023-12-03] MEDS: ENOXAPARIN 40 MG/0.4 ML SYRINGE SUB-Q (10:18)
[2023-12-03] MEDS: PANTOPRAZOLE 40 MG TABLET PO (10:18)
[2023-12-03] MEDS: THERAPEUTIC MULTIVITAMINS/MINERALS TAB (*BKC) 1 TABLET PO (10:18)
[2023-12-03] MEDS: FERROUS SULFATE 325 MG TABLET DR PO (10:18)
[2023-12-03] MEDS: FUROSEMIDE INJ 40 MG/4 ML VIAL IV PUSH ×3 (10:18→17:30)
[2023-12-03] MEDS: VENLAFAXINE HCL XR 75 MG CAP.ER.24H 225 MG PO (10:18)
[2023-12-03] MEDS: ASCORBIC ACID 500 MG TABLET PO (10:18)
[2023-12-03] MEDS: ASPIRIN 325 MG TABLET PO (10:18)
[2023-12-03] MEDS: rOPINIRole HCL 1 MG TABLET 4 MG PO ×2 (10:19→21:03)
[2023-12-03] MEDS: TOLNAFTATE 1% POWDER 45 GM BTL 1 APPLIC TOPICAL ×2 (10:19→21:03)
[2023-12-03] MEDS: polyethylene glycoL 3350 17 GM POWD.PACK PO (10:19)
--- NOTE | 2023-12-03 11:57 | P.CDI_ITS ---
CDI Query Clarification Request RSV has been identified with a positive swab (12/01/23). Please identify the underlying infectious process, if known: * Pneumonia * Bronchitis * Upper respiratory infection * Lower respiratory infection * Other/Unknown <Ashley Wisdom RN - Last Filed: 12/03/23 11:59> Clarified Diagnosis Clarified Diagnosis: pneumonia <Leslie Catalan APRN - Last Filed: 12/03/23 12:12>
--- NOTE | 2023-12-03 11:57 | WPDCDIQUERY2 ---
CDI Query Clarification Request RSV has been identified with a positive swab (12/01/23). Please identify the underlying infectious process, if known: Pneumonia Bronchitis Upper respiratory infection Lower respiratory infection Other/Unknown <Ashley Wisdom RN - Last Filed: 12/03/23 11:59> Clarified Diagnosis Clarified Diagnosis: pneumonia <Leslie Catalan APRN - Last Filed: 12/03/23 12:12>
--- NOTE | 2023-12-03 12:00 | P.CDI_ITS ---
CDI Query Clarification Request * Documented history of CHF. * CHF noted in the assessment and plan. * Elevated BNP on 12/02/23 lab work. * Patient receiving Lasix. * Pulmonary edema noted on the 12/01/23 chest xray. Additional information noted in the medical record. (3) CHF (congestive heart failure): ?Qualifiers: ?Heart failure chronicity:?acute on chronic??Heart failure type:? unspecified? Qualified Code(s):?I50.9 - Heart failure, unspecified ?Code(s): I50.9 - Heart failure, unspecified ?Status:?Acute ?Assessment and Plan: 12/01/23: * Last echo reviewed from 09/21/2023 which shown normal LV systolic function with an estimated EF of 65-70%, grade 2 diastolic dysfunction, severe p ulmonary hypertension with an estimated pulmonary arterial systolic pressure of 66 mmHg. * Patient was given 40 mg of IV Lasix in the ED * ProBNP 5290 * Troponin 0.013, 0.012 12/02/2023: * ProBNP 6950 * Continue with Lasix 40 mg b.i.d. * Troponin negative x3 Please specify type and acuity of heart failure if known. 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
--- NOTE | 2023-12-03 12:00 | WPDCDIQUERY2 ---
CDI Query Clarification Request Documented history of CHF. CHF noted in the assessment and plan. Elevated BNP on 12/02/23 lab work. Patient receiving Lasix. Pulmonary edema noted on the 12/01/23 chest xray. Additional information noted in the medical record. (3) CHF (congestive heart failure): ?Qualifiers: ?Heart failure chronicity:?acute on chronic??Heart failure type:?unspecified? Qualified Code(s):?I50.9 - Heart failure, unspecified ?Code(s): I50.9 - Heart failure, unspecified ?Status:?Acute ?Assessment and Plan: 12/01/23: Last echo reviewed from 09/21/2023 which shown normal LV systolic function with an estimated EF of 65-70%, grade 2 diastolic dysfunction, severe pulmonary hypertension with an estimated pulmonary arterial systolic pressure of 66 mmHg. Patient was given 40 mg of IV Lasix in the ED ProBNP 5290 Troponin 0.013, 0.012 12/02/2023: ProBNP 6950 Continue with Lasix 40 mg b.i.d. Troponin negative x3 Please specify type and acuity of heart failure if known. Acute Chronic Acute on Chronic Unknown Systolic Diastolic Combined Systolic and Diastolic Unknown <Ashley Wisdom RN - Last Filed: 12/03/23 12:03> Clarified Diagnosis Clarified Diagnosis: Acute on chronic combined systolic and diastolic heart failure <Leslie Catalan APRN - Last Filed: 12/03/23 12:13>
[2023-12-03] MEDS: ALBUTEROL SULFATE (*SP) AEROSOL 1 PUFF 2 PUFF INHALATION (18:30)
[2023-12-03] MEDS: MELATONIN 5 MG TABLET PO (21:02)
[2023-12-03] MEDS: ATORVASTATIN 10 MG TABLET PO (21:03)
[2023-12-03] MEDS: HALOPERIDOL 0.5 MG TABLET PO (21:03)
[2023-12-04] VITALS (23 sets, daily range): BP systolic 123–172; BP diastolic 51–80; PULSE 61–93; RESP 12–22; TEMP 36.2–36.8; O2SAT 92–100
[2023-12-04] MEDS: LORazepam INJ (*CRX) 2 MG/ML VIAL 1 MG IM (00:49)
[2023-12-04] MEDS: HALOPERIDOL LACTATE 5 MG/ML VIAL IM (00:49)
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
[2023-12-04] MEDS: IPRATROPIUM 0.5 MG/ALBUTEROL SULFATE 2.5 MG AMPUL.NEB 3 ML INHALATION ×3 (07:27→20:52)
[2023-12-04] MEDS: ENOXAPARIN 40 MG/0.4 ML SYRINGE SUB-Q (08:56)
--- NOTE | 2023-12-04 09:03 | P.PNIM_ITS ---
Progress Note: A&P Assessment and Plan (1) Acute respiratory failure with hypoxia and hypercapnia: Code(s): J96.01 - Acute respiratory failure with hypoxia; J96.02 - Acute respiratory failure with hypercapnia Status: Acute Assessment and Plan: 12/01/23: * Patient is a resident of [facility] and she was found to be with an oxygen sat of 88% on room air. EMS placed her on a CPAP. * ABG showing hypercapnia * She was given 40 mg IV Lasix in the ED * She was also given 125 mg IV push of Solu-Medrol * Respiratory panel was positive for RSV * She is MRSA positive * Chest x-ray showing pulmonary edema and COPD changes * She was given vancomycin and cefepime in the ED * Continue Solu-Medrol 60 mg IV push Q 8 hours * DuoNebs ordered * Procalcitonin 0.1, lactic acid 1.2, white blood cell count was normal at 4.9, chest x-ray showing more congestive heart changes and pneumonia, she tested positive for RSV-we will deescalate antibiotics at this time * Lungs coarse to auscultation with wheezing noted throughout all lung monteiro post breathing treatment, patient is tachypneic, with use of accessory muscles. She was placed back on cpap at this time. We will also give another dose of Lasix 40 mg IV x1 now * Continue Lasix 40 mg b.i.d. for continued diuresis 12/02/2023: * Continue Lasix 40 mg b.i.d. continue diuresis * Lungs are still coarse to auscultation, she is still requiring 3 L nasal cannula and has been refusing the BiPAP * Continue with current treatment plan 12/03/23: * Will give extra dose of Lasix now in between her b.i.d. dosing for additional ray diuresis * Lung sounds have improved, she does have at least 2+ pitting edema to bilateral lower extremities * Will obtain a chest x-ray tomorrow * Recheck BNP tomorrow * Continue PT and OT * Continue DuoNebs 12/04/23: * ABG this morning showing hypercapnia patient put back on BiPAP due to confusion and her hypercapnia * Lungs are showing improvement on chest x-ray * BNP is improved * Continue diuresis * Continue PT OT * Continue DuoNeb * Will recheck an ABG around 3 o'clock (2) Pulmonary edema: Qualifiers: Chronicity: acute Qualified Code(s): J81.0 - Acute pulmonary edema Code(s): J81.1 - Chronic pulmonary edema Status: Acute Assessment and Plan: * See above (3) CHF (congestive heart failure): Qualifiers: Heart failure chronicity: acute on chronic Heart failure type: unspecified Qualified Code(s): I50.9 - Heart failure, unspecified Code(s): I50.9 - Heart failure, unspecified Status: Acute Assessment and Plan: 12/01/23: * Last echo reviewed from 09/21/2023 which shown normal LV systolic function with an estimated EF of 65-70%, grade 2 diastolic dysfunction, severe pulmonary hypertension with an estimated pulmonary arterial systolic pressure of 66 mmHg. * Patient was given 40 mg of IV Lasix in the ED * ProBNP 5290 * Troponin 0.013, 0.012 12/02/2023: * ProBNP 6950 * Continue with Lasix 40 mg b.i.d. * Troponin negative x3 12/03/23: * No change to current treatment plan 12/04/2023: * BNP today 4800 * Continue Lasix 40 mg b.i.d. * Chest x-ray showing improvement (4) Pancytopenia: Code(s): D61.818 - Other pancytopenia Status: Acute Assessment and Plan: 12/02/2023: * White blood cell count this morning 1.8, RBC 2.88, hemoglobin 9.0, platelet count 104 * We will recheck her CBC now * If no improvement in the next 24 hours we will consult Hematology 12/03/23:
--- NOTE | 2023-12-04 09:03 | PM.IMPN ---
Progress Note: A&P Assessment and Plan (1) Acute respiratory failure with hypoxia and hypercapnia: Code(s): J96.01 - Acute respiratory failure with hypoxia; J96.02 - Acute respiratory failure with hypercapnia Status: Acute Assessment and Plan: 12/01/23: Patient is a resident of [facility] and she was found to be with an oxygen sat of 88% on room air. EMS placed her on a CPAP. ABG showing hypercapnia She was given 40 mg IV Lasix in the ED She was also given 125 mg IV push of Solu-Medrol Respiratory panel was positive for RSV She is MRSA positive Chest x-ray showing pulmonary edema and COPD changes She was given vancomycin and cefepime in the ED Continue Solu-Medrol 60 mg IV push Q 8 hours DuoNebs ordered Procalcitonin 0.1, lactic acid 1.2, white blood cell count was normal at 4.9, chest x-ray showing more congestive heart changes and pneumonia, she tested positive for RSV-we will deescalate antibiotics at this time Lungs coarse to auscultation with wheezing noted throughout all lung monteiro post breathing treatment, patient is tachypneic, with use of accessory muscles. She was placed back on cpap at this time. We will also give another dose of Lasix 40 mg IV x1 now Continue Lasix 40 mg b.i.d. for continued diuresis 12/02/2023: Continue Lasix 40 mg b.i.d. continue diuresis Lungs are still coarse to auscultation, she is still requiring 3 L nasal cannula and has been refusing the BiPAP Continue with current treatment plan 12/03/23: Will give extra dose of Lasix now in between her b.i.d. dosing for additional ray diuresis Lung sounds have improved, she does have at least 2+ pitting edema to bilateral lower extremities Will obtain a chest x-ray tomorrow Recheck BNP tomorrow Continue PT and OT Continue DuoNebs 12/04/23: ABG this morning showing hypercapnia patient put back on BiPAP due to confusion and her hypercapnia Lungs are showing improvement on chest x-ray BNP is improved Continue diuresis Continue PT OT Continue DuoNeb Will recheck an ABG around 3 o'clock (2) Pulmonary edema: Qualifiers: Chronicity: acute Qualified Code(s): J81.0 - Acute pulmonary edema Code(s): J81.1 - Chronic pulmonary edema Status: Acute Assessment and Plan: See above (3) CHF (congestive heart failure): Qualifiers: Heart failure chronicity: acute on chronic Heart failure type: unspecified Qualified Code(s): I50.9 - Heart failure, unspecified Code(s): I50.9 - Heart failure, unspecified Status: Acute Assessment and Plan: 12/01/23: Last echo reviewed from 09/21/2023 which shown normal LV systolic function with an estimated EF of 65-70%, grade 2 diastolic dysfunction, severe pulmonary hypertension with an estimated pulmonary arterial systolic pressure of 66 mmHg. Patient was given 40 mg of IV Lasix in the ED ProBNP 5290 Troponin 0.013, 0.012 12/02/2023: ProBNP 6950 Continue with Lasix 40 mg b.i.d. Troponin negative x3 12/03/23: No change to current treatment plan 12/04/2023: BNP today 4800 Continue Lasix 40 mg b.i.d. Chest x-ray showing improvement (4) Pancytopenia: Code(s): D61.818 - Other pancytopenia Status: Acute Assessment and Plan: 12/02/2023: White blood cell count this morning 1.8, RBC 2.88, hemoglobin 9.0, platelet count 104 We will recheck her CBC now If no improvement in the next 24 hours we will consult Hematology 12/03/23: WBC 3.8, RBC 3.28, HGB 10.3, PLT 111 Showing improvement 12/04/23: White blood cell count 2 point RBC 3.08, hemoglobin 9.7, platelet count 116 (5) Hypothyroidism, unspecified: Code(s): E03.9 - Hypothyroidism, unspecified Status: Acute Assessment and Plan: 12/01/23: Continue Synthroid 12/02/2023: No change to current treatment plan (6) HLD (hyperlipidemia): Qualifiers: Hyperlipidemia type: mixed hyperlipidemia Qualified Code(
[2023-12-04 10:18] LABS: Basophils Percent Auto 0.3 % (0.2-1.2); Hematocrit 32.3 % (37.0-47.0); Hemoglobin 9.7 g/dL (12.0-15.0); Immature Granulocyte Absolute 0.01 K/mm3 (0.00-0.031); Immature Granulocyte Percent A 0.3 % (0-0.5); Immature Platelet Fraction Pct 5.2 % (0.9-11.2); Lymphocytes Absolute Auto 0.41 K/mm3 (0.9-3.2); Lymphocytes Percent Auto 14.3 % (18.3-44.2); Mean Corpuscular Hemoglobin 31.5 pg (26-34); Mean Corpuscular Volume 104.9 fl (80-100); Mean Platelet Volume 10.7 fl (7.4-10.4); Monocytes Absolute Auto 0.5 K/mm3 (0.1-0.6); Monocytes Percent Auto 17.5 % (2.6-8.5); Neutrophils Absolute Auto 1.9 K/mm3 (1.3-6.7); Neutrophils Percent Auto 67.6 % (45.5-73.1); Platelet Count Result 116 k/mm3 (150-375); Red Blood Count 3.08 M/mm3 (4.2-5.4); White Blood Count 2.9 K/mm3 (4.5-10.0)
[2023-12-04 10:33] LABS: Alanine Aminotransferase 23 U/L (6-35); Albumin Level 4.1 g/dL (3.5-5.1); Alkaline Phosphatase 155 U/L (38-126); Aspartate Amino Transferase 34 U/L (14-36); Bilirubin,Total 0.8 mg/dL (0.2-1.3); Blood Urea Nitrogen 42 mg/dL (7-17); Calcium 9.5 mg/dL (8.4-10.2); Carbon Dioxide > 40 mmol/L (22-30); Chloride 97 mmol/L (98-107); Estimated CRCL calculation 50 ml/min; Estimated Glomerular Filt Rate > 60; Glucose 89 mg/dL (65-110); Magnesium 2.2 mg/dL (1.6-2.3); Potassium 4.1 mmol/L (3.4-5.0); Sodium 142 mmol/L (137-145)
[2023-12-04 10:35] LABS: NT Pro B Type Natriuretic Pept 4800 pg/mL (19.9-100)
[2023-12-04] MEDS: FUROSEMIDE INJ 40 MG/4 ML VIAL IV PUSH ×2 (11:28→20:59)
[2023-12-04] MEDS: TOLNAFTATE 1% POWDER 45 GM BTL 1 APPLIC TOPICAL ×2 (11:28→20:58)
[2023-12-04 11:42] LABS: Alveolar/Arterial O2 Gradient 67.7 mmHg; Base Excess ABG 12.5 mEq/l (+/-2.0); Fractional Inspired Oxygen 32 %; HCO3 ABG 40.3 mEq/l (22.0-26.0); Oxygen Content ABG 14.1 %vol (16.0-22.0); Oxygen Saturation ABG 94.2 % (95.0-100.0); Oxyhemoglobin 93.3 % THb (90.0-100.0); PO2 FiO2 Ratio Arterial Blood 2.38 %; Total Hemoglobin 10.7 g/dL (12.0-18.0); pH ABG 7.365 (7.350-7.450)
--- NOTE | 2023-12-04 11:44 | PCNFU ---
Nutrition Follow-Up Complete: Inadequate oral intake related to bipap, as evidenced by 0% breakfast Improve PO intake to at least 50% meals and supplements - Progressing Goal: Pt current nutrition is Heart healthy diet with Ensure Compact TID for additional 220 kcal and 9 g protein each. Nutrition recommendation: No new nutrition recommendations. Continue current nutrition care plan and orders Last recorded weight is 93 kg. Bowel Motility: No BMs are charted Labs Reviewed: Hgb 9.7, Hct 32.3, BUN 42, Meds Noted: Lasix, solu-medrol, protonix Skin: No pressure Additional Notes: Intakes remain sporadic, 5-50%. O2 with nasal cannula now Monitoring intakes, respiratory status, supplement tolerance, weights, labs, plan of care. Follow up in 3 days
[2023-12-04 11:46] LABS: Device NASAL CANNULA; PCO2 ABG 72.2 mmHg (35.0-45.0); Site Drawn RIGHT RADIAL
--- NOTE | 2023-12-04 13:23 | PCOTNOTE ---
The patient treatment was not able to be completed. Patient on BiPAP. RN stated to wait. Will plan to continue treatment per plan of care.
[2023-12-04 13:33] LABS: Glucose Point of Care 47 mg/dl (65-105)
[2023-12-04 14:25] LABS: Glucose Point of Care 67 mg/dl (65-105)
[2023-12-04 15:03] LABS: Glucose Point of Care 79 mg/dl (65-105)
[2023-12-04 15:44] LABS: Alveolar/Arterial O2 Gradient 88.7 mmHg; Base Excess ABG 17.9 mEq/l (+/-2.0); Fractional Inspired Oxygen 32 %; HCO3 ABG 47.9 mEq/l (22.0-26.0); Oxygen Content ABG 5.7 %vol (16.0-22.0); PO2 FiO2 Ratio Arterial Blood 0.73 %; Total Hemoglobin 10.2 g/dL (12.0-18.0); pH ABG 7.302 (7.350-7.450)
[2023-12-04 16:00] LABS: Oxygen Saturation ABG 32.3 % (95.0-100.0); PCO2 ABG 99.1 mmHg (35.0-45.0); PO2 ABG < 27.0 mmHg (80.0-100.0)
[2023-12-04 16:01] LABS: Device NASAL CANNULA; Oxyhemoglobin 39.7 % THb (90.0-100.0); Site Drawn RIGHT BRACHIAL
[2023-12-04] MEDS: GABAPENTIN 100 MG CAPSULE PO ×2 (16:52→20:58)
[2023-12-04 17:54] LABS: Glucose Point of Care 62 mg/dl (65-105)
[2023-12-04 18:18] LABS: Glucose Point of Care 77 mg/dl (65-105)
[2023-12-04] MEDS: ATORVASTATIN 10 MG TABLET PO (20:57)
[2023-12-04] MEDS: rOPINIRole HCL 1 MG TABLET 4 MG PO (20:58)
[2023-12-04] MEDS: MELATONIN 5 MG TABLET PO (20:58)
[2023-12-04] MEDS: HALOPERIDOL 0.5 MG TABLET PO (20:58)
[2023-12-04 21:27] LABS: Glucose Point of Care 55 mg/dl (65-105)
[2023-12-04] MEDS: methylPREDNISolone SOD SUCC 125 MG VIAL 60 MG IV PUSH (21:35)
[2023-12-04] MEDS: DEXTROSE 50% 25 GM/50 ML SYRINGE IV PUSH (21:35)
[2023-12-04 22:09] LABS: Glucose Point of Care 151 mg/dl (65-105)
[2023-12-05] VITALS (26 sets, daily range): BP systolic 143–165; BP diastolic 66–80; PULSE 63–96; RESP 16–24; TEMP 36.4–37.7; O2SAT 93–100
[2023-12-05] MEDS: IPRATROPIUM 0.5 MG/ALBUTEROL SULFATE 2.5 MG AMPUL.NEB 3 ML INHALATION ×4 (02:12→21:00)
[2023-12-05 05:04] LABS: Hematocrit 31.4 % (37.0-47.0); Hemoglobin 9.4 g/dL (12.0-15.0); Immature Granulocyte Absolute 0.01 K/mm3 (0.00-0.031); Immature Granulocyte Percent A 0.3 % (0-0.5); Immature Platelet Fraction Pct 5.1 % (0.9-11.2); Lymphocytes Absolute Auto 0.16 K/mm3 (0.9-3.2); Lymphocytes Percent Auto 5.4 % (18.3-44.2); Mean Corpuscular HGB Conc 29.9 g/dl (32-36); Mean Corpuscular Volume 103.6 fl (80-100); Mean Platelet Volume 10.5 fl (7.4-10.4); Monocytes Absolute Auto 0.1 K/mm3 (0.1-0.6); Monocytes Percent Auto 2.4 % (2.6-8.5); Neutrophils Absolute Auto 2.7 K/mm3 (1.3-6.7); Neutrophils Percent Auto 91.9 % (45.5-73.1); Platelet Count Result 113 k/mm3 (150-375); Red Blood Count 3.03 M/mm3 (4.2-5.4); Red Cell Distribution Width 15.9 % (11.5-14.5)
[2023-12-05 05:10] LABS: Alanine Aminotransferase 24 U/L (6-35); Albumin Level 3.6 g/dL (3.5-5.1); Alkaline Phosphatase 153 U/L (38-126); Aspartate Amino Transferase 30 U/L (14-36); Bilirubin,Total 0.9 mg/dL (0.2-1.3); Blood Urea Nitrogen 40 mg/dL (7-17); Carbon Dioxide > 40 mmol/L (22-30); Chloride 93 mmol/L (98-107); Estimated CRCL calculation 50 ml/min; Estimated Glomerular Filt Rate > 60; Glucose 165 mg/dL (65-110); Potassium 4.7 mmol/L (3.4-5.0); Sodium 137 mmol/L (137-145)
[2023-12-05] MEDS: GABAPENTIN 100 MG CAPSULE PO ×3 (06:23→21:19)
[2023-12-05] MEDS: LEVOTHYROXINE SODIUM 88 MCG TABLET PO (06:23)
[2023-12-05] MEDS: methylPREDNISolone SOD SUCC 125 MG VIAL 60 MG IV PUSH ×3 (06:24→21:19)
--- NOTE | 2023-12-05 07:01 | P.PNIM_ITS ---
Progress Note: A&P Assessment and Plan (1) Acute respiratory failure with hypoxia and hypercapnia: Code(s): J96.01 - Acute respiratory failure with hypoxia; J96.02 - Acute respiratory failure with hypercapnia Status: Acute Assessment and Plan: 12/01/23: * Patient is a resident of [facility] and she was found to be with an oxygen sat of 88% on room air. EMS placed her on a CPAP. * ABG showing hypercapnia * She was given 40 mg IV Lasix in the ED * She was also given 125 mg IV push of Solu-Medrol * Respiratory panel was positive for RSV * She is MRSA positive * Chest x-ray showing pulmonary edema and COPD changes * She was given vancomycin and cefepime in the ED * Continue Solu-Medrol 60 mg IV push Q 8 hours * DuoNebs ordered * Procalcitonin 0.1, lactic acid 1.2, white blood cell count was normal at 4.9, chest x-ray showing more congestive heart changes and pneumonia, she tested positive for RSV-we will deescalate antibiotics at this time * Lungs coarse to auscultation with wheezing noted throughout all lung monteiro post breathing treatment, patient is tachypneic, with use of accessory muscles. She was placed back on cpap at this time. We will also give another dose of Lasix 40 mg IV x1 now * Continue Lasix 40 mg b.i.d. for continued diuresis 12/02/2023: * Continue Lasix 40 mg b.i.d. continue diuresis * Lungs are still coarse to auscultation, she is still requiring 3 L nasal cannula and has been refusing the BiPAP * Continue with current treatment plan 12/03/23: * Will give extra dose of Lasix now in between her b.i.d. dosing for additional ray diuresis * Lung sounds have improved, she does have at least 2+ pitting edema to bilateral lower extremities * Will obtain a chest x-ray tomorrow * Recheck BNP tomorrow * Continue PT and OT * Continue DuoNebs 12/04/23: * ABG this morning showing hypercapnia patient put back on BiPAP due to confusion and her hypercapnia * Lungs are showing improvement on chest x-ray * BNP is improved * Continue diuresis * Continue PT OT * Continue DuoNeb * Will recheck an ABG around 3 o'clock 12/05/23: * Repeat ABG from yesterday appears to be venous * Lungs clear to auscultation today with mild inspiratory and expiratory wheezing, no use of accessory muscles, no acute respiratory distress seen. * We will go ahead and discontinue the IV Lasix and start her back on her oral Lasix 40 mg tab daily * Continue DuoNeb * Continue PT and OT * Okay to move patient out of IMU today (2) Pulmonary edema: Qualifiers: Chronicity: acute Qualified Code(s): J81.0 - Acute pulmonary edema Code(s): J81.1 - Chronic pulmonary edema Status: Acute Assessment and Plan: * See above (3) CHF (congestive heart failure): Qualifiers: Heart failure chronicity: acute on chronic Heart failure type: unspecified Qualified Code(s): I50.9 - Heart failure, unspecified Code(s): I50.9 - Heart failure, unspecified Status: Acute Assessment and Plan: 12/01/23: * Last echo reviewed from 09/21/2023 which shown normal LV systolic function with an estimated EF of 65-70%, grade 2 diastolic dysfunction, severe pulmonary hypertension with an estimated pulmonary arterial systolic pressure of 66 mmHg. * Patient was given 40 mg of IV Lasix in the ED * ProBNP 5290 * Troponin 0.013, 0.012 12/02/2023: * ProBNP 6950 * Continue with Lasix 40 mg b.i.d. * Troponin negative x3 12/03/23: * No change to current treatment plan 12/04/2023: * BNP today 4800 * Continue Lasix 40 m
--- NOTE | 2023-12-05 07:01 | PM.IMPN ---
Progress Note: A&P Assessment and Plan (1) Acute respiratory failure with hypoxia and hypercapnia: Code(s): J96.01 - Acute respiratory failure with hypoxia; J96.02 - Acute respiratory failure with hypercapnia Status: Acute Assessment and Plan: 12/01/23: Patient is a resident of [facility] and she was found to be with an oxygen sat of 88% on room air. EMS placed her on a CPAP. ABG showing hypercapnia She was given 40 mg IV Lasix in the ED She was also given 125 mg IV push of Solu-Medrol Respiratory panel was positive for RSV She is MRSA positive Chest x-ray showing pulmonary edema and COPD changes She was given vancomycin and cefepime in the ED Continue Solu-Medrol 60 mg IV push Q 8 hours DuoNebs ordered Procalcitonin 0.1, lactic acid 1.2, white blood cell count was normal at 4.9, chest x-ray showing more congestive heart changes and pneumonia, she tested positive for RSV-we will deescalate antibiotics at this time Lungs coarse to auscultation with wheezing noted throughout all lung monteiro post breathing treatment, patient is tachypneic, with use of accessory muscles. She was placed back on cpap at this time. We will also give another dose of Lasix 40 mg IV x1 now Continue Lasix 40 mg b.i.d. for continued diuresis 12/02/2023: Continue Lasix 40 mg b.i.d. continue diuresis Lungs are still coarse to auscultation, she is still requiring 3 L nasal cannula and has been refusing the BiPAP Continue with current treatment plan 12/03/23: Will give extra dose of Lasix now in between her b.i.d. dosing for additional ray diuresis Lung sounds have improved, she does have at least 2+ pitting edema to bilateral lower extremities Will obtain a chest x-ray tomorrow Recheck BNP tomorrow Continue PT and OT Continue DuoNebs 12/04/23: ABG this morning showing hypercapnia patient put back on BiPAP due to confusion and her hypercapnia Lungs are showing improvement on chest x-ray BNP is improved Continue diuresis Continue PT OT Continue DuoNeb Will recheck an ABG around 3 o'clock 12/05/23: Repeat ABG from yesterday appears to be venous Lungs clear to auscultation today with mild inspiratory and expiratory wheezing, no use of accessory muscles, no acute respiratory distress seen. We will go ahead and discontinue the IV Lasix and start her back on her oral Lasix 40 mg tab daily Continue DuoNeb Continue PT and OT Okay to move patient out of IMU today (2) Pulmonary edema: Qualifiers: Chronicity: acute Qualified Code(s): J81.0 - Acute pulmonary edema Code(s): J81.1 - Chronic pulmonary edema Status: Acute Assessment and Plan: See above (3) CHF (congestive heart failure): Qualifiers: Heart failure chronicity: acute on chronic Heart failure type: unspecified Qualified Code(s): I50.9 - Heart failure, unspecified Code(s): I50.9 - Heart failure, unspecified Status: Acute Assessment and Plan: 12/01/23: Last echo reviewed from 09/21/2023 which shown normal LV systolic function with an estimated EF of 65-70%, grade 2 diastolic dysfunction, severe pulmonary hypertension with an estimated pulmonary arterial systolic pressure of 66 mmHg. Patient was given 40 mg of IV Lasix in the ED ProBNP 5290 Troponin 0.013, 0.012 12/02/2023: ProBNP 6950 Continue with Lasix 40 mg b.i.d. Troponin negative x3 12/03/23: No change to current treatment plan 12/04/2023: BNP today 4800 Continue Lasix 40 mg b.i.d. Chest x-ray showing improvement 12/05/23: Lasix changed to oral 40 mg daily (4) Pancytopenia: Code(s): D61.818 - Other pancytopenia Status: Acute Assessment and Plan: Likely secondary to RSV viral infection 12/02/2023: White blood cell count this morning 1.8, RBC 2.88, hemoglobin 9.0, platelet count 104 We will recheck her CBC now If no improvement in the next 24 hours we will consult Hematology 12/03/23: WBC 3.
[2023-12-05 07:04] LABS: Platelet Estimate Slightly Decreased (Adequate)
[2023-12-05 07:06] LABS: Hypochromasia 1+
[2023-12-05 07:07] LABS: Anisocytosis 1+; Schistocytes None Seen
[2023-12-05] MEDS: VENLAFAXINE HCL XR 75 MG CAP.ER.24H 225 MG PO (09:39)
[2023-12-05] MEDS: ENOXAPARIN 40 MG/0.4 ML SYRINGE SUB-Q (09:39)
[2023-12-05] MEDS: PANTOPRAZOLE 40 MG TABLET PO (09:40)
[2023-12-05] MEDS: ASPIRIN 325 MG TABLET PO (09:40)
[2023-12-05] MEDS: FERROUS SULFATE 325 MG TABLET DR PO (09:41)
[2023-12-05] MEDS: ASCORBIC ACID 500 MG TABLET PO (09:41)
[2023-12-05] MEDS: rOPINIRole HCL 1 MG TABLET 4 MG PO ×2 (09:42→21:18)
[2023-12-05] MEDS: THERAPEUTIC MULTIVITAMINS/MINERALS TAB (*BKC) 1 TABLET PO (09:42)
[2023-12-05] MEDS: FUROSEMIDE INJ 40 MG/4 ML VIAL IV PUSH (09:43)
[2023-12-05] MEDS: TOLNAFTATE 1% POWDER 45 GM BTL 1 APPLIC TOPICAL ×2 (09:49→21:20)
[2023-12-05 10:16] LABS: Glucose Point of Care 206 mg/dl (65-105)
[2023-12-05 10:56] LABS: Lactate Dehydrogenase 165 U/L (120-246)
[2023-12-05 12:04] LABS: Folic Acid > 20.0 ng/mL (2.76->20)
[2023-12-05] MEDS: CENTRAL LINE FLUSH 10 ML IV PUSH ×2 (14:03→21:21)
--- NOTE | 2023-12-05 15:35 | PC.NURSE ---
This patient, Zohreh Oakes, was transferred to [facility] on 12/05/23 at 1535. Personal belongings sent with patient. Report given to Karine SANTILLAN. Appropriate documentation sent with patient.
--- NOTE | 2023-12-05 16:13 | PC.NURSE ---
This patient, Zohreh Oakes, was received from IMU on 12/05/23 at 1535. Patient/family oriented to unit policies and routines. Report received from Khang SANTILLAN
[2023-12-05 17:18] LABS: Glucose Point of Care 192 mg/dl (65-105)
[2023-12-05] MEDS: ACETAMINOPHEN 325 MG TABLET 650 MG PO (17:49)
[2023-12-05] MEDS: MELATONIN 5 MG TABLET PO (21:18)
[2023-12-05] MEDS: ATORVASTATIN 10 MG TABLET PO (21:19)
[2023-12-05] MEDS: HALOPERIDOL 0.5 MG TABLET PO (21:19)
[2023-12-06] VITALS (20 sets, daily range): BP systolic 119–174; BP diastolic 61–72; PULSE 64–88; RESP 16–25; TEMP 36.6–37.2; O2SAT 93–98
[2023-12-06] MEDS: IPRATROPIUM 0.5 MG/ALBUTEROL SULFATE 2.5 MG AMPUL.NEB 3 ML INHALATION ×3 (02:41→13:00)
[2023-12-06] MEDS: LEVOTHYROXINE SODIUM 88 MCG TABLET PO (05:43)
[2023-12-06] MEDS: methylPREDNISolone SOD SUCC 125 MG VIAL 60 MG IV PUSH (05:43)
[2023-12-06] MEDS: GABAPENTIN 100 MG CAPSULE PO ×3 (05:43→21:45)
[2023-12-06] MEDS: CENTRAL LINE FLUSH 20 ML IV PUSH (05:44)
[2023-12-06] MEDS: CENTRAL LINE FLUSH 10 ML IV PUSH ×3 (05:44→21:46)
[2023-12-06 05:52] LABS: Hematocrit 30.9 % (37.0-47.0); Hemoglobin 9.5 g/dL (12.0-15.0); Lymphocytes Absolute Auto 0.19 K/mm3 (0.9-3.2); Mean Corpuscular HGB Conc 30.7 g/dl (32-36); Mean Corpuscular Hemoglobin 31.3 pg (26-34); Mean Corpuscular Volume 101.6 fl (80-100); Mean Platelet Volume 10.6 fl (7.4-10.4); Monocytes Absolute Auto 0.2 K/mm3 (0.1-0.6); Neutrophils Absolute Auto 2.3 K/mm3 (1.3-6.7); Platelet Count Result 106 k/mm3 (150-375); Red Blood Count 3.04 M/mm3 (4.2-5.4); Red Cell Distribution Width 15.8 % (11.5-14.5); White Blood Count 2.7 K/mm3 (4.5-10.0)
[2023-12-06 06:16] LABS: Alanine Aminotransferase 26 U/L (6-35); Albumin Level 3.9 g/dL (3.5-5.1); Alkaline Phosphatase 155 U/L (38-126); Aspartate Amino Transferase 32 U/L (14-36); Blood Urea Nitrogen 45 mg/dL (7-17); Calcium 9.7 mg/dL (8.4-10.2); Carbon Dioxide > 40 mmol/L (22-30); Chloride 93 mmol/L (98-107); Estimated CRCL calculation 50 ml/min; Estimated Glomerular Filt Rate > 60; Glucose 189 mg/dL (65-110); Potassium 4.3 mmol/L (3.4-5.0); Sodium 140 mmol/L (137-145)
--- NOTE | 2023-12-06 09:35 | PM.IMPN ---
Progress Note: A&P Assessment and Plan (1) Pancytopenia: Code(s): D61.818 - Other pancytopenia Status: Acute (2) CHF exacerbation: Code(s): I50.9 - Heart failure, unspecified Status: Acute Plan Ms. Oakes is and 88-year-old female who permanently resides at [facility] with past medical history AFib status post Watchman device, history of DVT status post IVC filter, COPD, severe pulmonary hypertension, chronic respiratory failure?, seizure disorder, essential hypertension, diastolic heart failure, CKD stage 3, history of brain tumor with chronic encephalomalacia, history of subdural hematoma status post fall, hypothyroidism, depression, presents with cough wheezing and shortness of breath. #Acute decompensated diastolic heart failure -IV Lasix has since been transition to her home dose 40 mg p.o. q.a.m. -start daily weights, strict intake output, heart healthy diet, fluid restriction 1500 cc per day -still has uncontrolled hypertension. Adding Jardiance and spironolactone #Acute hypoxic and hypercarbic respiratory failure -patient reports she uses 2 L nasal cannula. This has not been reported anywhere in our chart. She appears to be a good historian. None the less we will continue to try to wean her being her for acute decompensated heart failure RSV pneumonia and acute COPD exacerbation. She could be a chronic retainer as well. #Acute COPD exacerbation -still has a slight expiratory wheeze she believes her breathing is better. She has been on Solu-Medrol. Discontinue that and start prednisone 40 mg p.o. q.day. continue scheduled DuoNebs. #RSV pneumonia -care as above. Still has dry cough. #Pancytopenia -while a viral syndrome could be contributing to this she has had pancytopenia for some time. Etiology could be chronic haldol. Pancytopenia should be monitored in the outpatient setting and the use of Haldol discussed. She does not want to discontinue it at this time. #essential hypertension -currently uncontrolled. Starting Jardiance and spironolactone. #Other psychiatric disorder -she reports using Haldol for severe nightmares which subsequently caused her distress even after awakening. This could be a nightmare syndrome. Continue outpatient follow-up. She is also on melatonin at night FEN: Heart healthy diet. Saline lock IV. 1500 cc fluid restriction daily. GI prophylaxis: She is on PPI at home. Continue. DVT prophylaxis: Lovenox Lines: Peripheral IV Code Status: DNR Dispo: Stable. Hospice/palliative care for all has been given as requested by the son. Patient is a permanent resident of [facility]. Subjective Date/time seen: 12/06/23 09:35 Interval history: No acute overnight events. Patient sits up at the edge of the bed and reports no complaints aside from a persistent dry cough. She feels her lungs are more clear otherwise. Review of Systems Review of Systems: All systems reviewed & are unremarkable except as noted in HPI and below (Subjective) Exam Const: General: comfortable and no acute distress Other: A&O x3 Eyes: Pupils: Equal, round and reactive pupils present Neck: Neck: supple Resp: Auscultation: wheezes (Expiratory) Cardio: Rate: regular rate Rhythm: regular rhythm Heart sounds: no gallops, no murmurs and no rubs GI: GI Palp: Yes Soft to palpation and No Tenderness to palpation present (GI) Extrem: General: no edema Objective Data Vital Signs Vital Signs: Vital Signs - 24 hr 12/05/23 12:00 12/05/23 13:23 12/05/23 13:34 Temperature 99.1 F Pulse Rate 96 82 75 Respiratory Rate 18 20 20 Blood Pressure 155/72 H Pulse Oximetry 93 Oxygen Delivery Oxygen Flow Rate 12/05/23 15:31 12/05/23 12:00 12/05/23 16:00 Temperature 99.8 F H Pulse Rate 63 86 76 Respiratory Rate 18 Blood Pressure 153/66 H Pulse Oximetry 96 Oxygen Delivery Oxygen Flow Rate 12/05/23 17:48 12/05/23 17:49 12/05/23 19:35
[2023-12-06] MEDS: FERROUS SULFATE 325 MG TABLET DR PO (09:44)
[2023-12-06] MEDS: ENOXAPARIN 40 MG/0.4 ML SYRINGE SUB-Q (09:44)
[2023-12-06] MEDS: VENLAFAXINE HCL XR 75 MG CAP.ER.24H 225 MG PO (09:44)
[2023-12-06] MEDS: FUROSEMIDE 40 MG TABLET PO (09:44)
[2023-12-06] MEDS: ASPIRIN 325 MG TABLET PO (09:44)
[2023-12-06] MEDS: PANTOPRAZOLE 40 MG TABLET PO (09:44)
[2023-12-06] MEDS: rOPINIRole HCL 1 MG TABLET 4 MG PO ×2 (09:44→20:15)
[2023-12-06] MEDS: ASCORBIC ACID 500 MG TABLET PO (09:44)
[2023-12-06] MEDS: polyethylene glycoL 3350 17 GM POWD.PACK PO (09:44)
[2023-12-06] MEDS: TOLNAFTATE 1% POWDER 45 GM BTL 1 APPLIC TOPICAL ×2 (09:45→20:17)
[2023-12-06] MEDS: SPIRONOLACTONE 12.5 MG TABLET PO (12:36)
[2023-12-06] MEDS: HYDROcodone/acetaminophen (*CRX) 10-325 MG TABLET 1 TAB PO ×2 (12:36→20:20)
[2023-12-06] MEDS: EMPAGLIFLOZIN 10 MG TABLET PO (12:36)
[2023-12-06] MEDS: guaiFENesin 200 MG/10 ML UDC 300 MG PO (18:13)
[2023-12-06] MEDS: ATORVASTATIN 10 MG TABLET PO (20:16)
[2023-12-06] MEDS: HALOPERIDOL 0.5 MG TABLET PO (20:16)
[2023-12-06] MEDS: MELATONIN 5 MG TABLET PO (20:17)
[2023-12-07] VITALS (18 sets, daily range): BP systolic 126–133; BP diastolic 54–64; PULSE 62–80; RESP 14–20; TEMP 36.3–36.8; O2SAT 92–97
[2023-12-07] MEDS: IPRATROPIUM 0.5 MG/ALBUTEROL SULFATE 2.5 MG AMPUL.NEB 3 ML INHALATION ×4 (02:21→19:31)
[2023-12-07 04:50] LABS: Eosinophils Percent Auto 0.2 % (0-4.4); Hematocrit 32.2 % (37.0-47.0); Hemoglobin 9.9 g/dL (12.0-15.0); Immature Granulocyte Absolute 0.01 K/mm3 (0.00-0.031); Immature Granulocyte Percent A 0.2 % (0-0.5); Lymphocytes Absolute Auto 0.86 K/mm3 (0.9-3.2); Lymphocytes Percent Auto 16.3 % (18.3-44.2); Mean Corpuscular HGB Conc 30.7 g/dl (32-36); Mean Corpuscular Hemoglobin 31.4 pg (26-34); Mean Corpuscular Volume 102.2 fl (80-100); Mean Platelet Volume 10.4 fl (7.4-10.4); Monocytes Absolute Auto 0.6 K/mm3 (0.1-0.6); Monocytes Percent Auto 11.9 % (2.6-8.5); Neutrophils Absolute Auto 3.8 K/mm3 (1.3-6.7); Neutrophils Percent Auto 71.4 % (45.5-73.1); Platelet Count Result 127 k/mm3 (150-375); Red Blood Count 3.15 M/mm3 (4.2-5.4); Red Cell Distribution Width 16.1 % (11.5-14.5); White Blood Count 5.3 K/mm3 (4.5-10.0)
[2023-12-07 05:12] LABS: Alanine Aminotransferase 33 U/L (6-35); Alkaline Phosphatase 144 U/L (38-126); Aspartate Amino Transferase 37 U/L (14-36); Blood Urea Nitrogen 48 mg/dL (7-17); Calcium 9.7 mg/dL (8.4-10.2); Carbon Dioxide > 40 mmol/L (22-30); Chloride 92 mmol/L (98-107); Estimated CRCL calculation 45 ml/min; Estimated Glomerular Filt Rate 59; Glucose 95 mg/dL (65-110); Potassium 4.1 mmol/L (3.4-5.0); Sodium 138 mmol/L (137-145)
[2023-12-07] MEDS: GABAPENTIN 100 MG CAPSULE PO ×3 (05:21→21:37)
[2023-12-07] MEDS: LEVOTHYROXINE SODIUM 88 MCG TABLET PO (05:22)
[2023-12-07] MEDS: CENTRAL LINE FLUSH 10 ML IV PUSH ×3 (05:22→21:38)
[2023-12-07] MEDS: ENOXAPARIN 40 MG/0.4 ML SYRINGE SUB-Q (10:02)
[2023-12-07] MEDS: HYDROcodone/acetaminophen (*CRX) 10-325 MG TABLET 1 TAB PO (10:03)
[2023-12-07] MEDS: VENLAFAXINE HCL XR 75 MG CAP.ER.24H 225 MG PO (10:04)
[2023-12-07] MEDS: polyethylene glycoL 3350 17 GM POWD.PACK PO (10:04)
[2023-12-07] MEDS: rOPINIRole HCL 1 MG TABLET 4 MG PO ×2 (10:04→21:37)
[2023-12-07] MEDS: ASCORBIC ACID 500 MG TABLET PO (10:05)
[2023-12-07] MEDS: EMPAGLIFLOZIN 10 MG TABLET PO (10:05)
[2023-12-07] MEDS: predniSONE 20 MG TABLET 40 MG PO (10:05)
[2023-12-07] MEDS: ASPIRIN 325 MG TABLET PO (10:05)
[2023-12-07] MEDS: SPIRONOLACTONE 12.5 MG TABLET PO (10:05)
[2023-12-07] MEDS: TOLNAFTATE 1% POWDER 45 GM BTL 1 APPLIC TOPICAL ×2 (10:06→21:38)
[2023-12-07] MEDS: FUROSEMIDE 40 MG TABLET PO (10:06)
[2023-12-07] MEDS: FERROUS SULFATE 325 MG TABLET DR PO (10:06)
[2023-12-07] MEDS: PANTOPRAZOLE 40 MG TABLET PO (10:06)
[2023-12-07] MEDS: THERAPEUTIC MULTIVITAMINS/MINERALS TAB (*BKC) 1 TABLET PO (10:06)
--- NOTE | 2023-12-07 12:57 | PM.IMPN ---
Progress Note: A&P Assessment and Plan (1) Pancytopenia: Code(s): D61.818 - Other pancytopenia Status: Acute (2) CHF exacerbation: Code(s): I50.9 - Heart failure, unspecified Status: Acute Plan Ms. Oakes is and 88-year-old female who permanently resides at [facility] with past medical history AFib status post Watchman device, history of DVT status post IVC filter, COPD, severe pulmonary hypertension, chronic respiratory failure?, seizure disorder, essential hypertension, diastolic heart failure, CKD stage 3, history of brain tumor with chronic encephalomalacia, history of subdural hematoma status post fall, hypothyroidism, depression, presents with cough wheezing and shortness of breath. December 06 update: Patient doing better. Now down to 1 L nasal cannula. She is ready for discharge with rehab back to [facility] however parents authorization is pending. #Acute decompensated diastolic heart failure -IV Lasix has since been transition to her home dose 40 mg p.o. q.a.m. -start daily weights, strict intake output, heart healthy diet, fluid restriction 1500 cc per day -still has uncontrolled hypertension. Adding Jardiance and spironolactone #Acute hypoxic and hypercarbic respiratory failure -patient reports she uses 2 L nasal cannula. This has not been reported anywhere in our chart. She appears to be a good historian. None the less we will continue to try to wean her being her for acute decompensated heart failure RSV pneumonia and acute COPD exacerbation. She could be a chronic retainer as well. #Acute COPD exacerbation -still has a slight expiratory wheeze she believes her breathing is better. She has been on Solu-Medrol. Discontinue that and start prednisone 40 mg p.o. q.day. continue scheduled DuoNebs. #RSV pneumonia -care as above. Still has dry cough. #Pancytopenia -while a viral syndrome could be contributing to this she has had pancytopenia for some time. Etiology could be chronic haldol. Pancytopenia should be monitored in the outpatient setting and the use of Haldol discussed. She does not want to discontinue it at this time. #essential hypertension -currently uncontrolled. Starting Jardiance and spironolactone. #Other psychiatric disorder -she reports using Haldol for severe nightmares which subsequently caused her distress even after awakening. This could be a nightmare syndrome. Continue outpatient follow-up. She is also on melatonin at night FEN: Heart healthy diet. Saline lock IV. 1500 cc fluid restriction daily. GI prophylaxis: She is on PPI at home. Continue. DVT prophylaxis: Lovenox Lines: Peripheral IV Code Status: DNR Dispo: Stable. Hospice/palliative care for all has been given as requested by the son. Patient is a permanent resident of [facility]. Subjective Date/time seen: 12/07/23 12:57 Interval history: No acute overnight events. The patient complains of some back discomfort today. Review of Systems Review of Systems: All systems reviewed & are unremarkable except as noted in HPI and below (Subjective) Exam Const: General: comfortable and no acute distress Other: A&O x3 Eyes: Pupils: Equal, round and reactive pupils present Neck: Neck: supple Resp: Auscultation: wheezes (Expiratory) Cardio: Rate: regular rate Rhythm: regular rhythm Heart sounds: no gallops, no murmurs and no rubs GI: GI Palp: Yes Soft to palpation and No Tenderness to palpation present (GI) Extrem: General: no edema Objective Data Vital Signs Vital Signs: Vital Signs - 24 hr 12/06/23 13:00 12/06/23 13:10 12/06/23 13:58 Temperature 98.9 F Pulse Rate 77 80 80 Respiratory Rate 20 20 18 Blood Pressure 154/72 H Pulse Oximetry 94 Oxygen Delivery Oxygen Flow Rate 12/06/23 16:00 12/06/23 20:02 12/06/23 20:00 Temperature 97.8 F Pulse Rate 74 75 75 Respiratory Rate 17 Blood Pressure 119/61 Pulse Oximetry 94 Oxygen Delivery
--- NOTE | 2023-12-07 13:33 | PCNFU ---
Nutrition Follow-Up Complete: Inadequate oral intake related to bipap, as evidenced by 0% breakfast goal: Improve PO intake to at least 50% meals and supplements Patient is progressing towards goal. We will continue current goal. Pt current nutrition is Heart Healthy/Fluid Restriction 1500 ml. Last recorded weight is 90.3 kg, up from 95.3 kg on admit. Bowel Motility:+BM reported 12/04 Labs Reviewed:BUN 48, Hct 32.2,Hgb 9.9 Meds Noted:Synthroid, Prednisone, MVI Skin: WNL Additional Notes: Patient remains on a heart healthy diet with 1500 ml Fluid Restriction. Oral intake has been 15-90% of most meals. Patient also is receiving ensure compact TID providing an additional 220 kcals and 9 gms protein. Agree with diet orders. Monitoring intakes, respiratory status, supplement tolerance, weights, labs, plan of care. Follow up in 5 days
[2023-12-07] MEDS: MELATONIN 5 MG TABLET PO (21:38)
[2023-12-07] MEDS: HALOPERIDOL 0.5 MG TABLET PO (21:38)
[2023-12-07] MEDS: ATORVASTATIN 10 MG TABLET PO (21:38)
[2023-12-08] VITALS (19 sets, daily range): BP systolic 118–140; BP diastolic 59–60; PULSE 62–76; RESP 16–22; TEMP 36.5–36.9; O2SAT 93–96
[2023-12-08] MEDS: IPRATROPIUM 0.5 MG/ALBUTEROL SULFATE 2.5 MG AMPUL.NEB 3 ML INHALATION ×4 (01:30→20:25)
[2023-12-08] MEDS: CENTRAL LINE FLUSH 10 ML IV PUSH ×2 (05:09→14:23)
[2023-12-08] MEDS: GABAPENTIN 100 MG CAPSULE PO ×3 (05:09→20:42)
[2023-12-08] MEDS: LEVOTHYROXINE SODIUM 88 MCG TABLET PO (05:09)
[2023-12-08 05:48] LABS: Hematocrit 30.7 % (37.0-47.0); Hemoglobin 9.3 g/dL (12.0-15.0); Immature Granulocyte Absolute 0.01 K/mm3 (0.00-0.031); Immature Granulocyte Percent A 0.3 % (0-0.5); Immature Platelet Fraction Pct 5.4 % (0.9-11.2); Lymphocytes Absolute Auto 0.45 K/mm3 (0.9-3.2); Lymphocytes Percent Auto 11.9 % (18.3-44.2); Mean Corpuscular HGB Conc 30.3 g/dl (32-36); Mean Corpuscular Hemoglobin 31.3 pg (26-34); Mean Corpuscular Volume 103.4 fl (80-100); Mean Platelet Volume 10.6 fl (7.4-10.4); Monocytes Absolute Auto 0.5 K/mm3 (0.1-0.6); Monocytes Percent Auto 13.5 % (2.6-8.5); Neutrophils Absolute Auto 2.8 K/mm3 (1.3-6.7); Neutrophils Percent Auto 74.3 % (45.5-73.1); Platelet Count Result 123 k/mm3 (150-375); Red Blood Count 2.97 M/mm3 (4.2-5.4); Red Cell Distribution Width 15.9 % (11.5-14.5); White Blood Count 3.8 K/mm3 (4.5-10.0)
[2023-12-08 06:20] LABS: Alanine Aminotransferase 36 U/L (6-35); Albumin Level 3.7 g/dL (3.5-5.1); Alkaline Phosphatase 135 U/L (38-126); Aspartate Amino Transferase 34 U/L (14-36); Bilirubin,Total 0.9 mg/dL (0.2-1.3); Blood Urea Nitrogen 45 mg/dL (7-17); Calcium 9.3 mg/dL (8.4-10.2); Carbon Dioxide > 40 mmol/L (22-30); Chloride 93 mmol/L (98-107); Estimated CRCL calculation 45 ml/min; Estimated Glomerular Filt Rate 59; Glucose 128 mg/dL (65-110); Potassium 4.2 mmol/L (3.4-5.0); Sodium 141 mmol/L (137-145)
[2023-12-08] MEDS: SPIRONOLACTONE 12.5 MG TABLET PO (08:26)
[2023-12-08] MEDS: THERAPEUTIC MULTIVITAMINS/MINERALS TAB (*BKC) 1 TABLET PO (08:26)
[2023-12-08] MEDS: rOPINIRole HCL 1 MG TABLET 4 MG PO ×2 (08:26→20:41)
[2023-12-08] MEDS: VENLAFAXINE HCL XR 75 MG CAP.ER.24H 225 MG PO (08:26)
[2023-12-08] MEDS: ASPIRIN 325 MG TABLET PO (08:26)
[2023-12-08] MEDS: ASCORBIC ACID 500 MG TABLET PO (08:26)
[2023-12-08] MEDS: FUROSEMIDE 40 MG TABLET PO (08:26)
[2023-12-08] MEDS: ENOXAPARIN 40 MG/0.4 ML SYRINGE SUB-Q (08:27)
[2023-12-08] MEDS: TOLNAFTATE 1% POWDER 45 GM BTL 1 APPLIC TOPICAL ×2 (08:27→20:44)
[2023-12-08] MEDS: FERROUS SULFATE 325 MG TABLET DR PO (08:27)
[2023-12-08] MEDS: PANTOPRAZOLE 40 MG TABLET PO (08:27)
[2023-12-08] MEDS: HYDROcodone/acetaminophen (*CRX) 10-325 MG TABLET 1 TAB PO (08:27)
[2023-12-08] MEDS: EMPAGLIFLOZIN 10 MG TABLET PO (08:27)
[2023-12-08] MEDS: predniSONE 20 MG TABLET 40 MG PO (08:27)
--- NOTE | 2023-12-08 16:19 | PM.DS ---
DS: Admitting Diagnosis Discharge Date December 08, 2023 Admitting Diagnosis Shortness of breath DS: Discharge Diagnosis Discharge Diagnosis (1) Acute respiratory failure with hypoxia and hypercapnia: Code(s): J96.01 - Acute respiratory failure with hypoxia; J96.02 - Acute respiratory failure with hypercapnia Status: Acute (2) CHF exacerbation: Code(s): I50.9 - Heart failure, unspecified Status: Acute DS: Summary Hospital Course Hospital Course: Ms. Oakes is and 88-year-old female who permanently resides at [facility] with past medical history AFib status post Watchman device, history of DVT status post IVC filter, COPD, severe pulmonary hypertension, chronic respiratory failure?, seizure disorder, essential hypertension, diastolic heart failure, CKD stage 3, history of brain tumor with chronic encephalomalacia, history of subdural hematoma status post fall, hypothyroidism, depression, presents with cough wheezing and shortness of breath. She was effectively treated for acute decompensated diastolic heart failure and acute COPD exacerbation with DuoNebs Solu-Medrol transition of prednisone along with IV Lasix transition to her p.o. Lasix. On 12/08/2023 she is stable for discharge back to her permanent residence with the addition of rehab. Breathing well on 1 L nasal cannula. She is discharged on her usual home dose Lasix. For diastolic heart failure Jardiance and spironolactone have been added which she has tolerated well. Adverse effects risk and benefits discussed with the patient to which she understood and agreed to this plan. Patient has follow-up with her PCP within 2 weeks. 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 Patient declined to decrease these as she very much feared her nightmares. She reports she will discuss this with her PCP although. As well she had RSV pneumonia and along with the other aforementioned treatment she was given supportive care. Patient had some concern for seizure in the past but after many months she had no further seizures and Keppra was used as a prophylactic agent. This has been stopped this admission and she has fared well. Discussed this with the patient and she was agreeable to take this route as well. The patient was DNR during her admission. Time Spent with Patient Time attestation: Total time spent providing and/or coordinating discharge services: Exam Const: General: comfortable and no acute distress Other: A&O x3 Eyes: Pupils: Equal, round and reactive pupils present Neck: Neck: supple Cardio: Rate: regular rate Rhythm: regular rhythm Heart sounds: no gallops, no murmurs and no rubs GI: GI Palp: Yes Soft to palpation and No Tenderness to palpation present (GI) Extrem: General: no edema DS: Data Data Completed and Pending Labs on day of discharge: Labs from last 24 hours 12/08/23 12/08/23 15:50 05:08 WBC 3.8 L RBC 2.97 L Hgb 9.3 L Hct 30.7 L MCV 103.4 H MCH 31.3 MCHC 30.3 L RDW 15.9 H Plt Count 123 L MPV 10.6 H Immature Gran % (Auto) 0.3 Neut % (Auto) 74.3 H Lymph % (Auto) 11.9 L [place] % (Auto) 13.5 H Eos % (Auto) 0.0 Baso % (Auto) 0.0 L Lymph # (Auto) 0.45 L [place] # (Auto) 0.5 Eos # (Auto) 0.0 Baso # (Auto) 0.0 Abs Immat Gran (auto) 0.01 Absolute Neuts (auto) 2.8 Absolute Nucleated RBC 0.000 Nucleated RBC % 0.0 % Immature Plt Fraction 5.4 Sodium 141 Potassium 4.2 Chloride 93 L Carbon Dioxide > 40 H Anion Gap BUN 45 H Creatinine 0.90 Estim Creat Clear Calc 45 Estimated GFR 59 Glucose 128 H Calcium 9.3 Total Bilirubin 0.9 AST 34 ALT 36 H Alkaline Phosphatase 135 H Total Protein 7.0 Albumin 3.7 SARS-CoV-2 RNA (RT-PCR) Pending Discharge Plan Discharge Attending physician on discharge: Sigrid Sandra Discharging Clinician: Sigrid Sandra
[2023-12-08 16:33] LABS: SARS-CoV-2 RNA PCR Negative (Negative)
[2023-12-08] MEDS: NEOMYCIN/POLYMYXIN/BACITRACIN OINTMENT PACKET 1 PACKET (17:29)
[2023-12-08] MEDS: guaiFENesin 200 MG/10 ML UDC 300 MG PO (18:48)
[2023-12-08] MEDS: MELATONIN 5 MG TABLET PO (20:42)
[2023-12-08] MEDS: ATORVASTATIN 10 MG TABLET PO (20:42)
[2023-12-08] MEDS: HALOPERIDOL 0.5 MG TABLET PO (20:54)
== END 2023-12-08 21:54 | DRG 193 ==
LOC: ANHED 05:21 → ANHIMU 06:08 → ANH2MED 12-05 15:14
PROVIDERS: Nurse Practitioner Acute Care; Admitting Provider Internal Medicine; Emergency Provider Emergency Medicine; PCP Family Medicine; Visit Provider General Practice
DX: J12.1 Respiratory syncytial virus pneumonia (principal); I50.43 Acute on chronic combined systolic (congestive) and diastolic (congestive) heart failure; J96.01 Acute respiratory failure with hypoxia; J96.02 Acute respiratory failure with hypercapnia; I48.20 Chronic atrial fibrillation, unspecified; I13.0 Hypertensive heart and chronic kidney disease with heart failure and stage 1 through stage 4 chronic kidney disease, or unspecified chronic kidney disease; N39.0 Urinary tract infection, site not specified; D61.818 Other pancytopenia; J44.1 Chronic obstructive pulmonary disease with (acute) exacerbation; N18.30 Chronic kidney disease, stage 3 unspecified; E78.5 Hyperlipidemia, unspecified; E03.9 Hypothyroidism, unspecified; I73.9 Peripheral vascular disease, unspecified; M47.816 Spondylosis without myelopathy or radiculopathy, lumbar region; G93.89 Other specified disorders of brain; F32.A Depression, unspecified; Z20.822 Contact with and (suspected) exposure to COVID-19; Z96.659 Presence of unspecified artificial knee joint; Z96.649 Presence of unspecified artificial hip joint; Z22.322 Carrier or suspected carrier of Methicillin resistant Staphylococcus aureus; Z79.82 Long term (current) use of aspirin; Z11.52 Encounter for screening for COVID-19; Z86.718 Personal history of other venous thrombosis and embolism; Z87.891 Personal history of nicotine dependence
CPT/HCPCS: 36415; 36569; 36600; 71045; 80053; 81001; 82607; 82746; 82805; 82948; 83605; 83615; 83735; 83880; 84145; 84484; 85025; 85027; 85055; 85610; 85730; 87040; 87086; 87635; 87637; 87641; 93005; 94002; 94003; 94640; 96365; 96372; 96375; 96376; 97110; 97116; 97161; 97165; 97530; 99284; 99285; A9270; C1751; G0378; J0692; J1630; J1650; J1940; J2060; J2919; J3370; J7512

== ENCOUNTER 2023-12-10 09:27 | Emergency (ER) | payer MEDICARE, SELFPAY ==
--- NOTE | ~2023-12-10 | CT_ITS ---
Non-contrast Head CT History: Altered mental status COMPARISON: 09/20/2023 Technique: Axial non-contrast imaging of the brain was performed. Dose reduction technique was used on this scan by utilizing automated exposure control and iterative reconstruction technique. The dose -length product (DLP) was 1362.00 mGy-cm. Findings: There is no evidence of intracranial hemorrhage, mass lesion, or acute infarct. Stable ex vacuo dilatation of the atrium of the right lateral ventricle. Right-sided probable dural calcificati on adjacent to the dilated ventricles unchanged. Right parietal craniotomy noted. The visualized para nasal sinuses and mastoid air cells are clear. Impression: No acute abnormality seen. Chronic findings, as above. Reviewed, dictated and finalized at location . Impression: No acute abnormality seen. Chronic findings, as above.
--- NOTE | ~2023-12-10 | XR_ITS ---
Portable chest x-ray Comparison: 12/04/2023 Clinical History: Altered mental status Findings: There is probable mild central congestive change. There is linear scarring or atelectasis right midlung. Cardiomediastinal silhouette is stable, with loop recorder. Bones and soft tissues ar e unremarkable. Impression: Central congestive change. Cardiomegaly with loop recorder. Reviewed, dictated and finalized at location . Impression: Central congestive change. Cardiomegaly with loop recorder.
[2023-12-10 09:22] VITALS: BP 153/73; PULSE 68; RESP 16; TEMP 36.8; O2SAT 100
--- NOTE | 2023-12-10 09:42 | ECG_ITS ---
SEE SCANNED COPY FOR CONFIRMED REPORT MTDD
--- NOTE | 2023-12-10 09:53 | ED.AMS ---
HPI - Altered Mental Status General Chief Complaint: Altered Mental Status Stated Complaint: AMS Time Seen by Provider: 12/10/23 09:30 History of Present Illness HPI narrative: 88-year-old female presented to the emergency department for evaluation worsening mental status. Patient is comfort care. Patient does have a history recent pneumonia but is no longer on antibiotics. Patient was recently discharged from [place] for RSV and pneumonia. This morning the staff felt the patient was more lethargic so she was transferred to the emergency department. Upon arrival emergency department patient became more alert appropriate. Patient attributed her morning somnolence to inability to sleep last night and patient suspects that instead of getting her Haldol at 11:30 a.m. last night she got it at 4:30 a.m. this morning. Related Data Home Medications Medication Instructions Recorded Confirmed aspirin 325 mg tablet 325 mg PO DAILY 08/06/19 12/01/23 gabapentin 100 mg capsule 100 mg PO Q8H 08/13/21 12/01/23 ropinirole 4 mg tablet 4 mg PO Q12H 04/28/23 12/01/23 ascorbic acid (vitamin C) 500 mg 500 mg PO DAILY 08/04/23 12/01/23 tablet multivitamin,[id number] 1 tablet PO DAILY 08/04/23 12/01/23 venlafaxine 150 mg 150 mg PO DAILY 08/04/23 12/01/23 capsule,extended release 24 hr acetaminophen 325 mg tablet 650 mg PO ONCE PRN Pain (Scale 09/20/23 12/01/23 Score 1-3) albuterol sulfate 90 mcg/actuation 2 puff inhalation Q4H PRN 09/20/23 12/01/23 aerosol inhaler (Ventolin HFA) Shortness Of Breath Or Wheezing bisacodyl 10 mg rectal suppository 10 mg RECTAL DAILY PRN Constipation 09/20/23 12/01/23 ferrous sulfate 325 mg (65 mg 325 mg PO DAILY 09/20/23 12/01/23 iron) tablet magnesium hydroxide 400 mg/5 mL 30 ml PO HS PRN Constipation 09/20/23 12/01/23 oral suspension (Milk of Magnesia) nystatin 100,000 unit/gram topical 1 applic topical DAILY 09/20/23 12/01/23 powder polyvinyl alcohol-povidone (PF) 2 drp EACH EYE QID PRN Dry Eyes 09/20/23 12/01/23 1.4 %-0.6 % eye drops in a dropperette (Refresh Classic (PF)) potassium chloride 20 mEq 20 meq PO DAILY 09/20/23 12/01/23 tablet,extended release guaifenesin 100 mg/5 mL oral liquid 300 mg PO Q6H PRN Congestion 12/01/23 12/01/23 haloperidol 0.5 mg tablet 0.5 mg PO HS 12/01/23 12/01/23 melatonin 5 mg tablet 5 mg PO HS 12/01/23 12/01/23 venlafaxine 75 mg tablet 75 mg PO DAILY 12/01/23 12/01/23 Allergies Allergy/AdvReac Type Severity Reaction Status Date / Time Penicillins Allergy Severe Hives Verified 12/01/23 03:16 Sulfa (Sulfonamide Allergy Intermediate hives Verified 12/01/23 03:16 Antibiotics) sulfamethoxazole Allergy Hives Verified 12/01/23 03:16 [From Bactrim] trimethoprim [From Bactrim] Allergy Hives Verified 12/01/23 03:16 morphine AdvReac Intermediate Hallucinati Verified 12/01/23 03:16 ng bumetanide AdvReac Nausea Verified 12/01/23 03:16 Review of Systems Review of Systems: All systems reviewed & are unremarkable except as noted in HPI and below PMFSH Past Medical History Medical History Afib patient had wactchman placed for a. fib approximately 2 yrs ago CHF exacerbation Choking Chronic a-fib Chronic pain disorder CKD (chronic kidney disease), stage III Essential (primary) hypertension Fatigue Fracture of knee prosthesis History of blood transfusion History of brain tumor History of DVT (deep vein thrombosis) HLD (hyperlipidemia) Hoarseness of voice HTN (hypertension) Hypertension Hypothyroidism (acquired) Hypothyroidism, unspecified Lumbar spondylosis Major depressive disorder, single episode, unspecified Minor head injury without loss of consciousness Numbness and tingling in left hand Obesity Other fracture of right femur, initial encounter for closed fracture PAD (peripheral artery disease) Unspecified injury of head, sequela Surgical History Surgical History (Reviewed
[2023-12-10 10:09] LABS: Appearance Urine Clear (Clear); Bacteria Urine None Seen /hpf; Bilirubin Urine Negative (Negative); Blood Urine Negative (Negative); Color Urine Yellow (Yellow); Glucose Urine UA Trace mg/dL (Negative); Ketones Urine Negative (Negative); Leukocyte Esterase Ur Negative LEU/UL (Negative); Nitrate Urine Negative (Negative); Non Pathogenic Casts 0-2; Protein Urine 2+ mg/dL (Negative); RBC Urine 0-2 /hpf (0-2); Specific Grav Ur 1.018 (1.001-1.035); Squamous Epithelial Cell Urine None Seen /hpf (Few); WBC Urine 0-5 /hpf (0-3); pH Urine 8.5 (5.0-9.0)
[2023-12-10 10:17] VITALS: PULSE 60; O2SAT 100
[2023-12-10 10:17] LABS: Add Urine Microscopic? YES
[2023-12-10 10:26] LABS: Alveolar/Arterial O2 Gradient 60.4 mmHg; Carboxyhemoglobin 1.4 % THb (0-2.0); Fractional Inspired Oxygen 30 %; HCO3 ABG 44.2 mEq/l (22.0-26.0); Methemoglobin ABG 0.2 %THb (0-1.5); Oxygen Content ABG 13.7 %vol (16.0-22.0); Oxygen Saturation ABG 94.2 % (95.0-100.0); Oxyhemoglobin 92.4 % THb (90.0-100.0); PO2 ABG 72.4 mmHg (80.0-100.0); PO2 FiO2 Ratio Arterial Blood 2.41 %; Total Hemoglobin 10.5 g/dL (12.0-18.0); pH ABG 7.424 (7.350-7.450)
[2023-12-10 10:27] LABS: Device NASAL CANNULA; Liters per Minute 2.5 LPM; Modified Allen's Test Pass; Site Drawn RIGHT RADIAL
[2023-12-10 10:32] LABS: Eosinophils Absolute Auto 0.1 K/mm3 (0-0.3); Eosinophils Percent Auto 3.1 % (0-4.4); Hemoglobin 9.3 g/dL (12.0-15.0); Immature Granulocyte Absolute 0.02 K/mm3 (0.00-0.031); Immature Granulocyte Percent A 0.5 % (0-0.5); Lymphocytes Absolute Auto 0.48 K/mm3 (0.9-3.2); Lymphocytes Percent Auto 12.2 % (18.3-44.2); Mean Corpuscular Hemoglobin 31.1 pg (26-34); Mean Corpuscular Volume 103.7 fl (80-100); Mean Platelet Volume 9.9 fl (7.4-10.4); Monocytes Absolute Auto 0.5 K/mm3 (0.1-0.6); Neutrophils Absolute Auto 2.8 K/mm3 (1.3-6.7); Neutrophils Percent Auto 72.2 % (45.5-73.1); Platelet Count Result 116 k/mm3 (150-375); Red Blood Count 2.99 M/mm3 (4.2-5.4); Red Cell Distribution Width 15.6 % (11.5-14.5); White Blood Count 3.9 K/mm3 (4.5-10.0)
[2023-12-10 10:45] LABS: Lactic Acid Reflex 0.6 mmol/L (0.7-2.0)
[2023-12-10 10:50] LABS: Influenza A QL RT-PCR Negative (Negative); Influenza B QL RT-PCR Negative (Negative); RSV RNA, RT-PCR Positive (Negative); SARS-CoV-2 RNA PCR Negative (Negative)
[2023-12-10 10:57] LABS: Alanine Aminotransferase 36 U/L (6-35); Albumin Level 3.5 g/dL (3.5-5.1); Alkaline Phosphatase 138 U/L (38-126); Aspartate Amino Transferase 33 U/L (14-36); Blood Urea Nitrogen 30 mg/dL (7-17); Calcium 8.9 mg/dL (8.4-10.2); Chloride 95 mmol/L (98-107); Estimated CRCL calculation 40 ml/min; Estimated Glomerular Filt Rate > 60; Glucose 90 mg/dL (65-110); Sodium 140 mmol/L (137-145)
[2023-12-10 11:07] LABS: Anion Gap 6 mmol/L (4-12); Carbon Dioxide 39 mmol/L (22-30)
[2023-12-10 11:56] VITALS: BP 143/74; PULSE 60; RESP 18; O2SAT 100
[2023-12-10 12:01] VITALS: BP 137/61; PULSE 60; RESP 19; O2SAT 100
--- NOTE | 2023-12-10 12:22 | PC.NURSE ---
pt refusing IV placement pt a/o Asked by Vascular access to witness pt statement provider made aware
[2023-12-10 12:46] VITALS: BP 141/91; PULSE 62; RESP 19; O2SAT 98
[2023-12-10 13:00] VITALS: BP 138/98; PULSE 61; RESP 19; O2SAT 99
== END 2023-12-10 16:56 ==
PROVIDERS: Emergency Provider Emergency Medicine; PCP Family Medicine
DX: R40.0 Somnolence (principal); J22 Unspecified acute lower respiratory infection; B97.4 Respiratory syncytial virus as the cause of diseases classified elsewhere; Z20.822 Contact with and (suspected) exposure to COVID-19; I48.20 Chronic atrial fibrillation, unspecified; I13.0 Hypertensive heart and chronic kidney disease with heart failure and stage 1 through stage 4 chronic kidney disease, or unspecified chronic kidney disease; N18.30 Chronic kidney disease, stage 3 unspecified; I50.9 Heart failure, unspecified; I73.9 Peripheral vascular disease, unspecified; E89.0 Postprocedural hypothyroidism; E78.5 Hyperlipidemia, unspecified; E66.9 Obesity, unspecified; Z68.28 Body mass index [BMI] 28.0-28.9, adult; Z95.0 Presence of cardiac pacemaker; Z95.818 Presence of other cardiac implants and grafts; Z96.649 Presence of unspecified artificial hip joint; Z96.659 Presence of unspecified artificial knee joint; Z87.01 Personal history of pneumonia (recurrent); Z86.718 Personal history of other venous thrombosis and embolism; Z87.891 Personal history of nicotine dependence; Z79.82 Long term (current) use of aspirin; Z79.84 Long term (current) use of oral hypoglycemic drugs; I51.7 Cardiomegaly
CPT/HCPCS: 36415; 36600; 70450; 71045; 80053; 81001; 82375; 82805; 83050; 83605; 85025; 87637; 93005; 99284

== ENCOUNTER 2024-03-06 18:53 | Inpatient (IN) | payer MEDICARE, SELFPAY ==
[2024-03-06] VITALS (12 sets, daily range): BP systolic 131–189; BP diastolic 64–93; PULSE 62–84; RESP 16–28; TEMP 36.9–38.4; O2SAT 94–100; BMI 32.1
--- NOTE | ~2024-03-06 | XR_ITS ---
Portable chest x-ray Comparison: 12/10/2023 Clinical History: Soreness of breath Findings: There is right upper lobe consolidation, suspicious for pneumonia. There is central conges tive change and probable background mild central pulmonary edema. Possible underlying chronic interst itial disease. Cardiomediastinal silhouette is stable, with loop recorder. Bones and soft tissues ar e unremarkable. Impression: Asymmetric right upper lobe consolidation, suspicious for pneumonia, versus possibly asymmetric pulmo nary edema. Probable central congestive change and central pulmonary edema pattern. Mild background probable chronic interstitial disease. Stable cardiomegaly, with loop recorder. Reviewed, dictated and finalized at location . Impression: Asymmetric right upper lobe consolidation, suspicious for pneumonia, versus pos sibly asymmetric pulmonary edema. Probable central congestive change and central pulmonary edema pattern. Mild background probable chronic interstitial disease. Stable cardiomegaly, with loop recorder.
--- NOTE | ~2024-03-06 | CT_ITS ---
Clinical Indication: Dyspnea CT Scan of the Chest with Contrast: Technique: Contiguous sections were acquired throughout the chest after intravenous administration of 100 cc of Omnipaque 350. Dose reduction technique was used on this scan by utilizing automated expos ure control and iterative reconstruction technique. The dose-length product (DLP) was 799.39 mGy-cm. COMPARISON: 09/19/2023 Findings: There is no evidence of any significant mediastinal, hilar or axillary lymphadenopathy. There is no f illing defect in the pulmonary arterial tree to suggest pulmonary embolus. There is no evidence of ao rtic dissection or aneurysm. No pericardial effusion. Probable cardiomegaly. Small bilateral pleural effusions are present. Bibasilar consolidation is compatible with atelectatic change. There are mild patchy groundglass opacities, compatible with pulmonary edema. There is inter stitial thickening, suggestive of interstitial edema. Images through the upper abdomen reveal moderate hiatal hernia.. Stable spinal compression fractures and degenerative change. Impression: No evidence of pulmonary embolus, aortic dissection, or aortic aneurysm. Small bilateral pleural effusions with extensive bibasilar atelectasis and mild mixed alveolar and in terstitial pulmonary edema. Reviewed, dictated and finalized at [facility]. Impression: No evidence of pulmonary embolus, aortic dissection, or aortic aneurysm. Small bilateral pleural effusions with extensive bibasilar atelectasis and mild mixed alveolar and interstitial pulmonary edema.
--- NOTE | ~2024-03-06 | US_ITS ---
EXAMINATION: US venous doppler LE RT DATE: 03/07/2024 14:47 INDICATION: Right lower limb swelling and erythema TECHNIQUE: Grayscale ultrasound images without and with compression and Doppler ultrasound images of the right lower extremity veins were obtained. COMPARISON: None. FINDINGS: The visualized portions of right common femoral vein, profunda (deep) femoral vein, proximal femoral vein and greater saphenous vein outflow are patent. The veins in the more distal right lower limb wer e unable to be assessed as patient refused further imaging. IMPRESSION: 1. Limited study terminated at patient request prior to assessment of the remaining distal to the pr oximal thigh. No deep venous thrombosis in the right common femoral, profunda femoral, proximal femor al vein and greater saphenous vein outflow. Reviewed, dictated and finalized at location A. IMPRESSION: 1. Limited study terminated at patient request prior to assessment of the brian ining distal to the proximal thigh. No deep venous thrombosis in the right comm on femoral, profunda femoral, proximal femoral vein and greater saphenous vein outflow.
--- NOTE | 2024-03-06 19:16 | PC.NURSE ---
Pt Sa02 dropping to 74-77 on 2l NC. Pt placed on Nonrebreather @ 15l Sa02 @ 100%
--- NOTE | 2024-03-06 19:21 | ECG_ITS ---
Test Date: 2024-03-06 19:44:53 Measurements Intervals [place] Rate: 72 P: 0 CO: 0 QRS: 78 QRSD: 122 T: -14 QT: 441 QTc: 484 Interpretive Statements ATRIAL FIBRILLATION NONSPECIFIC ST & T-WAVE ABNORMALITY- DIFFUSE LEADS BASELINE ARTIFACT- I, II, III, AVR, AVL, AVF, V1-V6 ABNORMAL ECG No previous ECG available for comparison Electronically Signed On 03-06-2024 19:50:55 CDT by Yazan Mehta D.O.
--- NOTE | 2024-03-06 19:30 | ED.SOB ---
HPI - SOB/Dyspnea General Chief Complaint: Shortness of Breath/Dyspnea <Tamica Feliz PA-C - Last Filed: 03/07/24 02:00> Stated Complaint: sob x 2d, fever 102.1, 10L NRB <Tamica Feliz PA-C - Last Filed: 03/07/24 02:00> Time Seen by Provider: 03/06/24 18:54 <Tamica Feliz PA-C - Last Filed: 03/07/24 02:00> History of Present Illness HPI Narrative: 88-year-old female with a history of AFib not on anticoagulation, CHF, cirrhosis, seizures, HTN, HLD, PAD, cardiac pacemaker present, pulmonary hypertension presents to the emergency department via EMS from [facility] with shortness of breath and fever. Patient states that she has been feeling short of breath he since yesterday. She reports associated lower extremity edema and productive cough. States she has some chest congestion and anterior aspect of her chest with associated pain. States his pain is worse when she in sprayed spine and coughs. States she feels like she cannot cough up the sputum that is in her chest and throat. She also reports a fever. Denies recent sick contacts. Denies abdominal pain, N/V/D, dysuria or hematuria. on arrival patient found to be febrile at 1:01 a.m. 0.2 and tachypneic at 28. She was hypoxic and placed on 2 L nasal cannula, she then continued to be hypoxic in the mid 70s was placed on a non-rebreather by nursing staff. Paperwork reviewed from prison staff. Patient and her son/POA Yusef Oakes have felt a comfort focus treatment paperwork. I called patient's POA to discuss this and he is requesting that we move forward with full workup and treatment today, although he does voice patient is DNR/DNI. Patient is also requesting this. <Tamica Feliz PA-C - Last Filed: 03/07/24 02:00> Related Data Home Medications: Home Medications Medication Instructions Recorded Confirmed aspirin 325 mg tablet 325 mg PO DAILY 08/06/19 03/06/24 gabapentin 100 mg capsule 200 mg PO BID 08/13/21 03/07/24 ropinirole 4 mg tablet 4 mg PO Q12H 04/28/23 03/07/24 ascorbic acid (vitamin C) 500 mg 500 mg PO DAILY 08/04/23 03/06/24 tablet multivitamin,[id number] 1 tablet PO DAILY 08/04/23 03/06/24 venlafaxine 150 mg 150 mg PO DAILY 08/04/23 03/06/24 capsule,extended release 24 hr albuterol sulfate 90 mcg/actuation 2 puff inhalation Q4H PRN 09/20/23 03/07/24 aerosol inhaler (Ventolin HFA) Shortness Of Breath Or Wheezing bisacodyl 10 mg rectal suppository 10 mg RECTAL DAILY PRN Constipation 09/20/23 03/07/24 ferrous sulfate 325 mg (65 mg 325 mg PO DAILY 09/20/23 03/07/24 iron) tablet polyvinyl alcohol-povidone (PF) 2 drp EACH EYE QID PRN Dry Eyes 09/20/23 03/07/24 1.4 %-0.6 % eye drops in a dropperette (Refresh Classic (PF)) potassium chloride 20 mEq 20 meq PO DAILY 09/20/23 03/06/24 tablet,extended release guaifenesin 100 mg/5 mL oral liquid 300 mg PO Q6H PRN Cough 12/01/23 03/07/24 haloperidol 1 mg tablet 1 mg PO HS 03/06/24 03/07/24 hydrocodone 10 mg-acetaminophen 1 tablet PO Q12H PRN Moderate Pain 03/06/24 03/06/24 325 mg tablet (Scale Score 5-6) lifitegrast 5 % eye drops in a 1 drp EACH EYE BID 03/06/24 03/06/24 dropperette (Xiidra) acetaminophen 325 mg tablet 650 mg PO Q6H PRN Pain 03/07/24 03/07/24 cyanocobalamin (vitamin B-12) 500 500 mcg PO DAILY 03/07/24 03/07/24 mcg tablet dextromethorphan-guaifenesin ER 60 1 tablet PO Q12H PRN Cough 03/07/24 03/07/24 mg-1,200 mg tab,extend release,12hr (Mucinex DM) gabapentin 100 mg capsule 300 mg PO HS 03/07/24 03/07/24 hydrocodone 10 mg-acetaminophen 1 tablet PO BID pain 03/07/24 03/07/24 325 mg tablet magnesium hydroxide 400 mg/5 mL 30 ml PO HS PRN Constipation 03/07/24 03/07/24 oral suspension (Milk of Magnesia) melatonin 5 mg tablet 5 mg PO HS 03/07/24 03/07/24 polyethylene glycol 3350 17 gram 17 g PO DAILY PRN Constipation 03/07/24 03/07/24 oral powder packet (Miralax) venlafaxine 75 mg capsule,extended 75 mg PO DAILY 03/07/24
[2024-03-06 19:45] LABS: Basophils Percent Auto 0.2 % (0.2-1.2); Eosinophils Percent Auto 0.1 % (0-4.4); Hematocrit 38.6 % (37.0-47.0); Hemoglobin 11.8 g/dL (12.0-15.0); Immature Granulocyte Absolute 0.02 K/mm3 (0.00-0.031); Immature Granulocyte Percent A 0.2 % (0-0.5); Immature Platelet Fraction Pct 3.1 % (0.9-11.2); Lymphocytes Absolute Auto 0.27 K/mm3 (0.9-3.2); Lymphocytes Percent Auto 3.3 % (18.3-44.2); Mean Corpuscular HGB Conc 30.6 g/dl (32-36); Mean Corpuscular Hemoglobin 30.6 pg (26-34); Mean Corpuscular Volume 100.3 fl (80-100); Monocytes Absolute Auto 0.9 K/mm3 (0.1-0.6); Monocytes Percent Auto 10.9 % (2.6-8.5); Neutrophils Absolute Auto 6.9 K/mm3 (1.3-6.7); Neutrophils Percent Auto 85.3 % (45.5-73.1); Platelet Count Result 136 k/mm3 (150-375); Red Blood Count 3.85 M/mm3 (4.2-5.4); Red Cell Distribution Width 16.6 % (11.5-14.5); White Blood Count 8.1 K/mm3 (4.5-10.0)
[2024-03-06 19:52] LABS: INR 1.1; Prothrombin Time 14.9 Seconds (11.1-14.7)
[2024-03-06 19:53] LABS: Partial Thromboplastin Time 29.1 Seconds (22.3-36.8)
[2024-03-06 19:54] LABS: Lactic Acid Reflex 1.2 mmol/L (0.7-2.0)
[2024-03-06 19:56] LABS: Alanine Aminotransferase 21 U/L (6-35); Albumin Level 4.6 g/dL (3.5-5.1); Alkaline Phosphatase 233 U/L (38-126); Anion Gap 9 mmol/L (4-12); Aspartate Amino Transferase 34 U/L (14-36); Bilirubin,Total 1.8 mg/dL (0.2-1.3); Blood Urea Nitrogen 26 mg/dL (7-17); Calcium 9.1 mg/dL (8.4-10.2); Carbon Dioxide 37 mmol/L (22-30); Chloride 94 mmol/L (98-107); D Dimer 1.25 ug/mL (<0.48); Estimated CRCL calculation 42 ml/min; Estimated Glomerular Filt Rate 53; Glucose 113 mg/dL (65-110); Potassium 4.2 mmol/L (3.4-5.0); Sodium 140 mmol/L (137-145)
[2024-03-06 20:00] LABS: Alveolar/Arterial O2 Gradient 344.6 mmHg; Base Excess ABG 7.9 mEq/l (+/-2.0); Fractional Inspired Oxygen 80 %; HCO3 ABG 35.3 mEq/l (22.0-26.0); Oxygen Content ABG 17.3 %vol (16.0-22.0); Oxygen Saturation ABG 98.9 % (95.0-100.0); Oxyhemoglobin 97.6 % THb (90.0-100.0); PO2 ABG 159.6 mmHg (80.0-100.0); Total Hemoglobin 12.4 g/dL (12.0-18.0); pH ABG 7.365 (7.350-7.450)
[2024-03-06 20:02] LABS: Device NON-INVASIVE VENT; Modified Allen's Test Pass; PCO2 ABG 63.1 mmHg (35.0-45.0); Site Drawn RIGHT RADIAL
[2024-03-06 20:04] LABS: NT Pro B Type Natriuretic Pept 3470 pg/mL (19.9-100); Troponin I 0.015 ng/mL (0.000-0.034)
[2024-03-06 20:05] LABS: Non-Invasive Expiratory Pressure 5 CMH2O; Non-Invasive Inspiratory Pressure 10 CMH2O; Non-Invasive Vent Rate 16 /MIN
[2024-03-06 20:15] LABS: CRP 6.1 mg/dL (<1.0); Lipase 36 U/L (23-300)
[2024-03-06 20:19] LABS: Influenza A QL RT-PCR Negative (Negative); Influenza B QL RT-PCR Negative (Negative); RSV RNA, RT-PCR Negative (Negative); SARS-CoV-2 RNA PCR Negative (Negative)
[2024-03-06] MEDS: ACETAMINOPHEN 650 MG SUPPOSITORY RECTAL (20:20)
[2024-03-06] MEDS: FUROSEMIDE INJ 40 MG/4 ML VIAL IV PUSH (20:20)
--- NOTE | 2024-03-06 20:21 | PC.NURSE ---
PT REFUSING SECOND SET OF CULTURES. PT REFUSING TO BE STUCK AGAIN. PT STATING THAT SHE DID NOT WANT TO HAVE CULTURES DONE. CHACE GREENWOOD AWARE. PAMELA GREENWOOD STATED TO INITIATE ANTIBIOTIC THERAPY.
[2024-03-06 20:25] LABS: Add Urine Microscopic? YES; Appearance Urine Clear (Clear); Bacteria Urine None Seen /hpf; Bilirubin Urine Negative (Negative); Blood Urine 2+ (Negative); Color Urine Yellow (Yellow); Glucose Urine UA 3+ mg/dL (Negative); Ketones Urine Negative (Negative); Leukocyte Esterase Ur Trace LEU/UL (Negative); Mucus Urine Present /lpf; Need Manual Microscopic Reviewed; Nitrate Urine Negative (Negative); Protein Urine 2+ mg/dL (Negative); Specific Grav Ur 1.016 (1.001-1.035); Squamous Epithelial Cell Urine None Seen /hpf (Few); WBC Urine 0-5 /hpf (0-3)
[2024-03-06 20:34] LABS: Procalcitonin 0.6 ng/mL
--- NOTE | 2024-03-06 20:36 | PC.NURSE ---
Michael lau to start patient on an external catheter due to patient urinary incontinence.
[2024-03-06 20:49] LABS: Thyroid Stimulating Hormone Reflex 0.808 uIU/mL (0.465-4.68)
[2024-03-06] MEDS: AZITHROMYCIN 500 MG/NS 250 ML 500 MG/250 ML BAG 250 MG IVPB (20:52)
[2024-03-06 21:46] LABS: MRSA (PCR) DETECTED (NOT DETECTE)
[2024-03-06] MEDS: VANCOMYCIN 1,250 MG/NS 250 ML 1,250 MG/250 ML BAG 166.67 MG IVPB (22:04)
--- NOTE | 2024-03-06 22:35 | PC.NURSE ---
family stated to omi ryan and this rn that they have not noticed patient to have urinary output through external catheter since coming back from xray. this rn and omi ryan checked patient. pt was dry, external catheter intact and in place at this time. bladder scan was verbally ordered.
--- NOTE | 2024-03-06 23:01 | PM.IMHP ---
H&P: HPI History of Present Illness Date/Time: 03/06/24 23:01 Chief Complaint: sob Narrative: This is an 88-year-old female with past medical history significant for atrial fibrillation, chronic kidney disease, congestive heart failure, hypertension, peripheral artery disease, major depressive disorder, hypothyroidism, DVT. Patient lives at assisted living facility was brought to the emergency room due to shortness of breath and low oxygen saturation. Upon arrival to emergency room patient was placed on BiPAP at the time of my visit patient was on BiPAP unable to give any history. most of the history has been obtained upon reviewing medical records according to emergency room patient had had a cough and chest congestion Preliminary workup was significant for ABG pH is 7.36 pCO2 [address] angiogram of the chest was negative for pulmonary embolism a chest x-ray showed lung edema. Patient has been admitted for further evaluation management and treatment. Portable chest x-ray Comparison: 12/10/2023 Clinical History: Soreness of breath Findings: There is right upper lobe consolidation, suspicious for pneumonia. There is central congestive change and probable background mild central pulmonary edema. Possible underlying chronic interstitial disease. Cardiomediastinal silhouette is stable, with loop recorder. Bones and soft tissues are unremarkable. Impression: Asymmetric right upper lobe consolidation, suspicious for pneumonia, versus possibly asymmetric pulmonary edema. Probable central congestive change and central pulmonary edema pattern. Mild background probable chronic interstitial disease. Stable cardiomegaly, with loop recorder. Clinical Indication: Dyspnea CT Scan of the Chest with Contrast: Technique: Contiguous sections were acquired throughout the chest after intravenous administration of 100 cc of Omnipaque 350. Dose reduction technique was used on this scan by utilizing automated exposure control and iterative reconstruction technique. The dose-length product (DLP) was 799.39 mGy-cm. COMPARISON: 09/19/2023 Findings: There is no evidence of any significant mediastinal, hilar or axillary lymphadenopathy. There is no filling defect in the pulmonary arterial tree to suggest pulmonary embolus. There is no evidence of aortic dissection or aneurysm. No pericardial effusion. Probable cardiomegaly. Small bilateral pleural effusions are present. Bibasilar consolidation is compatible with atelectatic change. There are mild patchy groundglass opacities, compatible with pulmonary edema. There is interstitial thickening, suggestive of interstitial edema. Images through the upper abdomen reveal moderate hiatal hernia.. Stable spinal compression fractures and degenerative change. Impression: No evidence of pulmonary embolus, aortic dissection, or aortic aneurysm. Small bilateral pleural effusions with extensive bibasilar atelectasis and mild mixed alveolar and interstitial pulmonary edema. Review of Systems Review of Systems: ROS unobtainable: Yes unobtainable due to medical condition (on BiPAP) [facility] Past Medical History Medical History Afib patient had wactchman placed for a. fib approximately 2 yrs ago CHF exacerbation Choking Chronic a-fib Chronic pain disorder CKD (chronic kidney disease), stage III Essential (primary) hypertension Fatigue Fracture of knee prosthesis History of blood transfusion History of brain tumor History of DVT (deep vein thrombosis) HLD (hyperlipidemia) Hoarseness of voice HTN (hypertension) Hypertension Hypothyroidism (acquired) Hypothyroidism, unspecified Lumbar spondylosis Major depressive disorder, single episode, unspecified Minor head injury without loss of consciousness Numbness and tingling in left hand Obesity Other fracture of right femur, initial encounter for closed fracture PAD (peripheral arter
[2024-03-07] VITALS (27 sets, daily range): BP systolic 116–150; BP diastolic 49–87; PULSE 60–89; RESP 16–24; TEMP 36.5–37.2; O2SAT 92–100; BMI 32.1
[2024-03-07] MEDS: VANCOMYCIN 1,000 MG/NS 250 ML 1,000 MG/250 ML BAG 250 MG IVPB
--- NOTE | 2024-03-07 | ECHO_ITS ---
Patient Info Name: Zohreh Oakes Age: 88 years : 1935 Gender: Female Ht: 67 in Wt: 205 lbs BSA: 2.13 m2 HR: 69 bpm BP: 150 / 59 mmHg Heart Rhythm: Sinus Rhythm Technical Quality: Good Exam Date: 03/07/2024 10:19 AM Exam Location: Echo Lab Patient Status: Inpatient Admit Date: 03/06/2024 Staff Ordering Physician: Rema Mhaoney APRN Automated Equipment Engineer Technician: Lazarus Russo RDCS Attending Provider: Rema Mahoney APRN Referring Physician: Denzel FARLEY; Exam Type: CA echo doppler color flow Study Info Indications - chf exacerbation Complete two-dimensional, color flow and Doppler transthoracic echocardiogram is performed. Summary 1. Complete two-dimensional, color flow and Doppler transthoracic echocardiogram is performed. 2. Concentric left ventricular hypertrophy with normal systolic function and grade 1 diastolic noncompliance. 3. Biatrial dilation left greater than right. 4. Very small amounts of aortic and mitral valve regurgitation. 5. TR velocities consistent with pulmonary hypertension estimated PA pressure 66. 6. Compared with echocardiogram done in August of this year in this laboratory the findings are unchanged. Left Ventricle Left ventricular chamber dimension is normal. Left ventricular systolic function is normal, estimated at 65-70%. There is mild concentric increased left ventricular wall thickness. The left ventricular diastolic function is grade I diastolic dysfunction. Right Ventricle Right ventricular chamber dimension is normal. Left Atria Left atrial chamber dimension is moderately enlarged. Right Atria Right atrial chamber dimension is mildly enlarged. Aortic Valve The aortic valve is trileaflet. There is mild aortic valve sclerosis. There is trace aortic valve regurgitation. Pulmonic Valve The pulmonic valve is normal. Mitral Valve The mitral valve has normal leaflets. There is trace mitral valve regurgitation. The mitral valve annulus is mildly calcified. Tricuspid Valve The tricuspid valve leaflets are normal. There is moderate tricuspid valve regurgitation. Moderate pulmonary hypertension, estimated pulmonary arterial systolic pressure is Empty. Pericardium/Pleural The pericardium appears normal. Aorta The aortic root size at the sinus of Valsalva is normal. Left Ventricular Outflow Tract Name Value Normal LVOT 2D LVOT Diameter 2.0 cm LVOT Doppler LVOT Peak Gradient 11 mmHg LVOT Mean Gradient 6 mmHg LVOT VTI 31 cm LVOT VTI/AV VTI Ratio 0.6 LVOT Stroke Volume 99 ml LVOT CO 6.1 l/min LVOT CI 2.9 l/min/m2 Pulmonic Valve Name Value Normal PV Doppler PV Peak Gradient 9 mmHg PV Regurgitation Doppler
--- NOTE | 2024-03-07 | ADMGEN ---
This patient, Zohreh Oakes, was admitted to IMU Room 232-01. Patient/family oriented to hospital policies and general routines including ID bracelet, bed and alarms, visiting hours, pain management, procedures, bathroom and other care routines, personal items, smoking policy, room service/diet, and visiting hours. Information on how to activate the Rapid Response Team has been discussed. Patient/Family are encouraged to report perceived risks to care and to ask questions if they do not understand what they are told or what they should do.
--- NOTE | 2024-03-07 00:17 | PC.NURSE ---
pt became anxious and pulled off bipap which she has been tolerating. switched to NC at 2l sta 95%. pt counciled that Nasal cannula will not help her dissipate the CO2 in her system. pt states she wants to be comfortable
--- NOTE | 2024-03-07 02:15 | PC.NURSE ---
came into room pt awake and pulled out iV in right arm blood noted on sheets and gown
[2024-03-07] MEDS: FUROSEMIDE INJ 40 MG/4 ML VIAL IV PUSH ×3 (02:43→17:26)
[2024-03-07 04:47] LABS: Estimated CRCL calculation 42 ml/min; Estimated Glomerular Filt Rate 53
--- NOTE | 2024-03-07 08:37 | PM.IMPN ---
Progress Note: A&P Assessment and Plan (1) Acute respiratory failure with hypoxia and hypercapnia: Code(s): J96.01 - Acute respiratory failure with hypoxia; J96.02 - Acute respiratory failure with hypercapnia Status: Acute Assessment and Plan: Acute on chronic respiratory failure. Initially required BiPAP in the ED but now on her baseline oxygen requirement of 2 L NC. Patient is supposed to wear a CPAP at night but she is non-compliant as it makes her claustrophobic Component of pneumonia vs CHF exacerbation vs exacerbation of chronic respiratory failure ABG showed respiratory acidosis, compensated. Chest CTA shows no PE, aortic dissection, with bilateral bibasilar atelectasis and pulmonary edema Viral respiratory panel negative MRSA nares +, on isolation. Mupirocin BID to bilateral nares. Duo nebs Q 6 hours Solu-Medrol 60 mg Q 6 hours, + wheezing (2) CHF exacerbation: Code(s): I50.9 - Heart failure, unspecified Status: Acute Assessment and Plan: HFpEF. Shortness of breath with pulmonary edema on imaging. BNP 3470. Will obtain ECHO Strict I/O, pure wick catheter placed in the ED Fluid restriction 1500 ml daily Lasix 40 mg IVP BID, continue spironolactone ANÍBAL hose BLE with +2 pitting edema as well as pain and erythema, particularly to the RLE. Will r/o DVT with bilateral lower extremity Doppler. Summary 09/21/23 1. Complete two-dimensional, color flow and Doppler transthoracic echocardiogram is performed. 2. Left ventricular chamber dimension is normal. 3. Left ventricular systolic function is normal, estimated at 65-70%. 4. There is moderately increased left ventricular wall thickness. 5. Left ventricular septal wall motion is abnormal with septal motion related to bundle branch block. 6. The left ventricular diastolic function is grade II diastolic dysfunction. 7. Left atrial chamber dimension is moderately enlarged. 8. Right atrial chamber dimension is moderately enlarged. 9. There is no aortic valve stenosis. 10. There is mild mitral valve regurgitation. 11. There is moderate tricuspid valve regurgitation. 12. Severe pulmonary hypertension, estimated pulmonary arterial systolic pressure is 66 mmHg. (3) Pneumonia: Qualifiers: Laterality: unspecified laterality Lung location: unspecified part of lung Pneumonia type: due to unspecified organism Qualified Code(s): J18.9 - Pneumonia, unspecified organism Code(s): J18.9 - Pneumonia, unspecified organism Status: Acute Assessment and Plan: Presenting with febrile illness of 101.4, congested with productive cough of mackay-pink sputum, and initially increased oxygen requirement WBC 8.1, lactic 1.2, procal 0.6 Sputum, blood cultures ordered Started on Cefepime, Vancomycin, and Azithromycin. She had a hospitalization within the last 90 days with IV antibiotics, therefore HAP coverage. MRSA nares + Duo Nebs Q 6 hours IS, PEP therapy OOB to chair PT/OT consulted Plan Feeding: Heart healthy with 1500 ml fluid restriction Analgesia: tylenol Thromboembolic prophylaxis: lovenox, ANÍBAL hose Ulcer prophylaxis: protonix Glycemic control:AC/HS accu check, hypoglycemia protocol, moderate dose SSI with meals and at HS given IV steroid. Fasting glucose 113 on Jardiance. A1C ordered. Bowel regimen: Miralax Lines: PIV Antibiotics: Cefepime, vanco, azithromycin Disposition: Patient presented with shortness of breath from [facility]. She had a documented fever of 101.2 on arrival to the ED. Initially she was placed on BiPAP in the ED but now is on her baseline oxygen at 2 L NC. She has a component of acute/chronic respiratory failure with concerns for underlying pneumonia and CHF exacerbation. She is being started on abx, IV steroids, and neb treatments. She is stable to downgrade to [place] today. Advance Care Plan I have confirmed that the roger
[2024-03-07 09:18] LABS: Alanine Aminotransferase 18 U/L (6-35); Alkaline Phosphatase 180 U/L (38-126); Anion Gap 11 mmol/L (4-12); Aspartate Amino Transferase 32 U/L (14-36); Bilirubin,Total 1.3 mg/dL (0.2-1.3); Blood Urea Nitrogen 28 mg/dL (7-17); Calcium 8.7 mg/dL (8.4-10.2); Carbon Dioxide 32 mmol/L (22-30); Chloride 96 mmol/L (98-107); Estimated CRCL calculation 42 ml/min; Estimated Glomerular Filt Rate 53; Glucose 104 mg/dL (65-110); Magnesium 2.2 mg/dL (1.6-2.3); Sodium 139 mmol/L (137-145)
[2024-03-07 09:36] LABS: Basophils Percent Auto 0.5 % (0.2-1.2); Hematocrit 37.4 % (37.0-47.0); Hemoglobin 11.1 g/dL (12.0-15.0); Immature Granulocyte Absolute 0.01 K/mm3 (0.00-0.031); Immature Granulocyte Percent A 0.2 % (0-0.5); Immature Platelet Fraction Pct 4.5 % (0.9-11.2); Lymphocytes Absolute Auto 0.57 K/mm3 (0.9-3.2); Lymphocytes Percent Auto 9.7 % (18.3-44.2); Mean Corpuscular HGB Conc 29.7 g/dl (32-36); Mean Corpuscular Hemoglobin 30.8 pg (26-34); Mean Corpuscular Volume 103.9 fl (80-100); Mean Platelet Volume 10.8 fl (7.4-10.4); Monocytes Absolute Auto 0.9 K/mm3 (0.1-0.6); Monocytes Percent Auto 14.7 % (2.6-8.5); Neutrophils Absolute Auto 4.4 K/mm3 (1.3-6.7); Neutrophils Percent Auto 74.9 % (45.5-73.1); Platelet Count Result 115 k/mm3 (150-375); Red Cell Distribution Width 16.8 % (11.5-14.5); White Blood Count 5.9 K/mm3 (4.5-10.0)
[2024-03-07 10:34] LABS: Hemoglobin A1C 5.5 % (<5.7)
[2024-03-07 10:42] LABS: Hypochromasia 1+; Platelet Estimate Slightly Decreased (Adequate); Schistocytes None Seen
[2024-03-07] MEDS: VENLAFAXINE HCL XR 75 MG CAP.ER.24H 225 MG PO (10:52)
[2024-03-07] MEDS: ASPIRIN 325 MG TABLET PO ×2 (10:52→10:53)
[2024-03-07] MEDS: GABAPENTIN 100 MG CAPSULE 200 MG PO ×2 (10:53→17:27)
[2024-03-07] MEDS: rOPINIRole HCL 1 MG TABLET 4 MG PO ×2 (10:53→19:47)
[2024-03-07] MEDS: SPIRONOLACTONE 12.5 MG TABLET PO (10:54)
[2024-03-07] MEDS: THERAPEUTIC MULTIVITAMINS/MINERALS TAB (*BKC) 1 TABLET PO (10:54)
[2024-03-07] MEDS: PANTOPRAZOLE 40 MG TABLET PO (10:54)
[2024-03-07] MEDS: FERROUS SULFATE 325 MG TABLET DR PO (10:55)
[2024-03-07] MEDS: EMPAGLIFLOZIN 10 MG TABLET PO (10:55)
[2024-03-07] MEDS: LEVOTHYROXINE SODIUM 88 MCG TABLET PO (10:55)
[2024-03-07] MEDS: guaiFENesin 12 HR 600 MG TABCR PO ×2 (10:55→19:48)
[2024-03-07] MEDS: CEFEPIME 2 GM/NS 50 ML 2 GM/50 ML BAG IVPB ×2 (11:04→19:48)
[2024-03-07] MEDS: ENOXAPARIN 40 MG/0.4 ML SYRINGE SUB-Q (11:04)
[2024-03-07] MEDS: polyethylene glycoL 3350 17 GM POWD.PACK PO (11:05)
[2024-03-07] MEDS: methylPREDNISolone SOD SUCC 40 MG VIAL IV PUSH ×3 (11:49→23:51)
[2024-03-07 12:07] LABS: Glucose Point of Care 80 mg/dl (65-105)
--- NOTE | 2024-03-07 13:34 | PCPTNOTE ---
On 03/07/24, the student, [Larissa Laura], provided care and completed [facility] documentation on this patient. I have reviewed the student's documentation and agree with the findings.
[2024-03-07] MEDS: IPRATROPIUM 0.5 MG/ALBUTEROL SULFATE 2.5 MG AMPUL.NEB 3 ML INHALATION ×2 (13:55→20:30)
--- NOTE | 2024-03-07 15:27 | PCRCNOTE ---
Went in patient's room to instruct incentive spirometry. Patient initially stated she did not want to do the I.S because she believed it was not clean and she didn't want it in her mouth. I showed her the plastic that I had just opened and she eventually agreed to try. She then stated she didn't know how to take a deep breath and kept blowing out despite education. Pt frustated and set it down and stated I'm not doing this. I.S. left in room at patient's bedside.
[2024-03-07 16:01] LABS: Glucose Point of Care 172 mg/dl (65-105)
[2024-03-07] MEDS: GABAPENTIN 300 MG CAPSULE PO (19:47)
[2024-03-07] MEDS: ATORVASTATIN 10 MG TABLET PO (19:47)
[2024-03-07] MEDS: TOLNAFTATE 1% POWDER 45 GM BTL 1 APPLIC TOPICAL (19:56)
[2024-03-07] MEDS: MUPIROCIN 2% OINT 22 GM TUBE 1 APPLIC EACH NARE (19:57)
[2024-03-07] MEDS: AZITHROMYCIN 500 MG/NS 250 ML 500 MG/250 ML BAG 250 MG IVPB (20:24)
[2024-03-07 20:53] LABS: Glucose Point of Care 217 mg/dl (65-105)
--- NOTE | 2024-03-07 21:01 | PC.NURSE ---
This patient, Zohreh Oakes, was transferred to [facility] on 03/07/24 at 2101. Personal belongings sent with patient. Report given to TYRELL Jimenez. Appropriate documentation sent with patient.
[2024-03-07] MEDS: HALOPERIDOL 1 MG TABLET PO (21:33)
[2024-03-07] MEDS: MELATONIN 5 MG TABLET PO (21:33)
[2024-03-07] MEDS: INSULIN ASPART (*BKC) 100 UNITS/ML SUB-Q (21:35)
--- NOTE | 2024-03-07 22:13 | PC.NURSE ---
Received report from RN. Pt to room 333. Stable condition, pt alert and cooperative. Oriented to unit/room. Voices no needs at this time.
[2024-03-07] MEDS: VANCOMYCIN 1,500 MG/NS 500 ML 1,500 MG/500 ML BAG 250 MG IVPB (23:09)
[2024-03-08] VITALS (15 sets, daily range): BP systolic 123–164; BP diastolic 61–72; PULSE 60–70; RESP 18–20; TEMP 36.4–36.8; O2SAT 94–97
[2024-03-08] MEDS: IPRATROPIUM 0.5 MG/ALBUTEROL SULFATE 2.5 MG AMPUL.NEB 3 ML INHALATION ×4 (01:15→20:11)
[2024-03-08] MEDS: methylPREDNISolone SOD SUCC 40 MG VIAL IV PUSH ×4 (05:51→23:58)
[2024-03-08] MEDS: LEVOTHYROXINE SODIUM 88 MCG TABLET PO (05:51)
[2024-03-08 06:11] LABS: Basophils Percent Auto 0.3 % (0.2-1.2); Hematocrit 37.9 % (37.0-47.0); Hemoglobin 11.6 g/dL (12.0-15.0); Immature Granulocyte Absolute 0.01 K/mm3 (0.00-0.031); Immature Granulocyte Percent A 0.3 % (0-0.5); Lymphocytes Absolute Auto 0.19 K/mm3 (0.9-3.2); Lymphocytes Percent Auto 6.3 % (18.3-44.2); Mean Corpuscular HGB Conc 30.6 g/dl (32-36); Mean Corpuscular Hemoglobin 30.4 pg (26-34); Mean Corpuscular Volume 99.5 fl (80-100); Mean Platelet Volume 10.8 fl (7.4-10.4); Monocytes Absolute Auto 0.1 K/mm3 (0.1-0.6); Monocytes Percent Auto 2.3 % (2.6-8.5); Neutrophils Absolute Auto 2.8 K/mm3 (1.3-6.7); Neutrophils Percent Auto 90.8 % (45.5-73.1); Platelet Count Result 122 k/mm3 (150-375); Red Blood Count 3.81 M/mm3 (4.2-5.4); Red Cell Distribution Width 16.4 % (11.5-14.5)
[2024-03-08 06:28] LABS: Alanine Aminotransferase 19 U/L (6-35); Alkaline Phosphatase 190 U/L (38-126); Anion Gap 8 mmol/L (4-12); Aspartate Amino Transferase 31 U/L (14-36); Bilirubin,Total 1.4 mg/dL (0.2-1.3); Blood Urea Nitrogen 36 mg/dL (7-17); Calcium 8.8 mg/dL (8.4-10.2); Carbon Dioxide 38 mmol/L (22-30); Chloride 93 mmol/L (98-107); Estimated CRCL calculation 42 ml/min; Estimated Glomerular Filt Rate 53; Glucose 167 mg/dL (65-110); Magnesium 2.1 mg/dL (1.6-2.3); Potassium 3.6 mmol/L (3.4-5.0); Sodium 139 mmol/L (137-145)
[2024-03-08] MEDS: CEFEPIME 2 GM/NS 50 ML 2 GM/50 ML BAG IVPB ×2 (08:02→20:00)
[2024-03-08] MEDS: FUROSEMIDE INJ 40 MG/4 ML VIAL IV PUSH ×2 (08:03→17:06)
[2024-03-08] MEDS: TOLNAFTATE 1% POWDER 45 GM BTL 1 APPLIC TOPICAL ×2 (08:07→20:56)
[2024-03-08] MEDS: FERROUS SULFATE 325 MG TABLET DR PO (08:08)
[2024-03-08] MEDS: EMPAGLIFLOZIN 10 MG TABLET PO (08:08)
[2024-03-08] MEDS: GABAPENTIN 100 MG CAPSULE 200 MG PO ×2 (08:08→17:06)
[2024-03-08] MEDS: polyethylene glycoL 3350 17 GM POWD.PACK PO (08:09)
[2024-03-08] MEDS: VENLAFAXINE HCL XR 75 MG CAP.ER.24H 225 MG PO (08:09)
[2024-03-08] MEDS: rOPINIRole HCL 1 MG TABLET 4 MG PO ×2 (08:09→20:55)
[2024-03-08] MEDS: guaiFENesin 12 HR 600 MG TABCR PO ×2 (08:09→20:55)
[2024-03-08] MEDS: ASPIRIN 325 MG TABLET PO (08:10)
[2024-03-08 08:13] LABS: Glucose Point of Care 179 mg/dl (65-105)
[2024-03-08] MEDS: PANTOPRAZOLE 40 MG TABLET PO (08:15)
[2024-03-08] MEDS: SPIRONOLACTONE 12.5 MG TABLET PO (08:15)
[2024-03-08] MEDS: ENOXAPARIN 40 MG/0.4 ML SYRINGE SUB-Q (08:15)
[2024-03-08] MEDS: MUPIROCIN 2% OINT 22 GM TUBE 1 APPLIC EACH NARE ×2 (08:17→20:56)
--- NOTE | 2024-03-08 08:42 | PM.IMPN ---
Progress Note: A&P Assessment and Plan (1) Acute respiratory failure with hypoxia and hypercapnia: Code(s): J96.01 - Acute respiratory failure with hypoxia; J96.02 - Acute respiratory failure with hypercapnia Status: Acute Assessment and Plan: Acute on chronic respiratory failure. Initially required BiPAP in the ED but now on her baseline oxygen requirement of 2 L NC. Patient is supposed to wear a CPAP at night but she is non-compliant as it makes her claustrophobic Component of pneumonia vs CHF exacerbation vs exacerbation of chronic respiratory failure ABG showed respiratory acidosis, compensated. Chest CTA shows no PE, aortic dissection, with bilateral bibasilar atelectasis and pulmonary edema Viral respiratory panel negative MRSA nares +, on isolation. Mupirocin BID to bilateral nares. Duo nebs Q 6 hours Solu-Medrol 60 mg Q 6 hours, + wheezing (2) CHF exacerbation: Code(s): I50.9 - Heart failure, unspecified Status: Acute Assessment and Plan: HFpEF. Shortness of breath with pulmonary edema on imaging. BNP 3470. Will obtain ECHO Strict I/O, pure wick catheter placed in the ED Fluid restriction 1500 ml daily Lasix 40 mg IVP BID with last dose today at 5:00 p.m.. Plan to transition back to p.o. Lasix tomorrow., potassium 3.6 today will give 40 mEq of oral potassium. Continue spironolactone ANÍBAL hose BLE with +2 pitting edema as well as pain and erythema, particularly to the RLE. Venous Doppler study was partially completed (RLE) at the behest of the patient but what imaging was completed did not show DVT. Summary 1. Complete two-dimensional, color flow and Doppler transthoracic echocardiogram is performed. 2. Concentric left ventricular hypertrophy with normal systolic function and grade 1 diastolic noncompliance. 3. Biatrial dilation left greater than right. 4. Very small amounts of aortic and mitral valve regurgitation. 5. TR velocities consistent with pulmonary hypertension estimated PA pressure 66. 6. Compared with echocardiogram done in August of this year in this laboratory the findings are unchanged. (3) Pneumonia: Qualifiers: Laterality: unspecified laterality Lung location: unspecified part of lung Pneumonia type: due to unspecified organism Qualified Code(s): J18.9 - Pneumonia, unspecified organism Code(s): J18.9 - Pneumonia, unspecified organism Status: Acute Assessment and Plan: Presenting with febrile illness of 101.4, congested with productive cough of mackay-pink sputum, and initially increased oxygen requirement WBC 8.1, lactic 1.2, procal 0.6 Sputum was never collected, blood cultures negative Started on Cefepime, Vancomycin, and Azithromycin. She had a hospitalization within the last 90 days with IV antibiotics, therefore HAP coverage. MRSA nares + Duo Nebs Q 6 hours IS, PEP therapy OOB to chair PT/OT consulted Plan Feeding: Heart healthy with 1500 ml fluid restriction Analgesia: tylenol Thromboembolic prophylaxis: lovenox, ANÍBAL hose Ulcer prophylaxis: protonix Glycemic control:AC/HS accu check, hypoglycemia protocol, moderate dose SSI with meals and at HS given IV steroid. Fasting glucose 113 on Jardiance. A1C ordered. Bowel regimen: Miralax Lines: PIV Antibiotics: Cefepime, vanco, azithromycin Disposition: Patient presented with shortness of breath from [facility]. She had a documented fever of 101.2 on arrival to the ED. Initially she was placed on BiPAP in the ED but now is on her baseline oxygen at 2 L NC. She has a component of acute/chronic respiratory failure with concerns for underlying pneumonia and CHF exacerbation. She is being started on abx, IV steroids, and neb treatments. Patient continues to improve with current therapies. Will continue with IV diuresis today transition back to her oral Lasix tomorrow. Anticipate she will be ready to go home in the next 1-2 days.
--- NOTE | 2024-03-08 08:43 | PCPTNOTE ---
Patient refused PT treatment session. Patient reported she was on the phone and did not want to do therapy at this time.
[2024-03-08 11:35] LABS: Glucose Point of Care 244 mg/dl (65-105)
[2024-03-08] MEDS: INSULIN ASPART (*BKC) 100 UNITS/ML SUB-Q ×2 (11:58→21:22)
[2024-03-08] MEDS: POTASSIUM CHLORIDE 20 MEQ ER TABLET 40 MEQ PO (14:00)
[2024-03-08 16:28] LABS: Glucose Point of Care 171 mg/dl (65-105)
[2024-03-08] MEDS: MELATONIN 5 MG TABLET PO (20:55)
[2024-03-08] MEDS: GABAPENTIN 300 MG CAPSULE PO (20:55)
[2024-03-08] MEDS: ATORVASTATIN 10 MG TABLET PO (20:55)
[2024-03-08] MEDS: HALOPERIDOL 1 MG TABLET PO (20:55)
[2024-03-08] MEDS: AZITHROMYCIN 500 MG/NS 250 ML 500 MG/250 ML BAG 250 MG IVPB (20:56)
[2024-03-08] MEDS: ACETAMINOPHEN 325 MG TABLET 650 MG PO (21:11)
[2024-03-08 21:37] LABS: Glucose Point of Care 224 mg/dl (65-105)
[2024-03-08 22:24] LABS: Vancomycin Trough 14.9 ug/mL (10.0-20.0)
[2024-03-09] VITALS (13 sets, daily range): BP systolic 132–146; BP diastolic 66–68; PULSE 60–79; RESP 18; TEMP 36–37; O2SAT 94–96
[2024-03-09] MEDS: VANCOMYCIN 1,500 MG/NS 500 ML 1,500 MG/500 ML BAG 250 MG IVPB (00:06)
[2024-03-09] MEDS: IPRATROPIUM 0.5 MG/ALBUTEROL SULFATE 2.5 MG AMPUL.NEB 3 ML INHALATION ×3 (02:20→14:25)
[2024-03-09] MEDS: LEVOTHYROXINE SODIUM 88 MCG TABLET PO (05:44)
[2024-03-09] MEDS: methylPREDNISolone SOD SUCC 40 MG VIAL IV PUSH ×2 (05:44→12:15)
[2024-03-09 05:50] LABS: Hematocrit 35.7 % (37.0-47.0); Hemoglobin 10.9 g/dL (12.0-15.0); Immature Granulocyte Absolute 0.02 K/mm3 (0.00-0.031); Immature Granulocyte Percent A 0.5 % (0-0.5); Lymphocytes Absolute Auto 0.16 K/mm3 (0.9-3.2); Lymphocytes Percent Auto 3.7 % (18.3-44.2); Mean Corpuscular HGB Conc 30.5 g/dl (32-36); Mean Corpuscular Hemoglobin 30.4 pg (26-34); Mean Corpuscular Volume 99.4 fl (80-100); Mean Platelet Volume 10.5 fl (7.4-10.4); Monocytes Absolute Auto 0.2 K/mm3 (0.1-0.6); Monocytes Percent Auto 3.9 % (2.6-8.5); Neutrophils Percent Auto 91.9 % (45.5-73.1); Platelet Count Result 130 k/mm3 (150-375); Red Blood Count 3.59 M/mm3 (4.2-5.4); Red Cell Distribution Width 16.5 % (11.5-14.5); White Blood Count 4.4 K/mm3 (4.5-10.0)
[2024-03-09 06:02] LABS: Alanine Aminotransferase 19 U/L (6-35); Albumin Level 3.9 g/dL (3.5-5.1); Alkaline Phosphatase 159 U/L (38-126); Anion Gap 7 mmol/L (4-12); Aspartate Amino Transferase 28 U/L (14-36); Bilirubin,Total 0.9 mg/dL (0.2-1.3); Blood Urea Nitrogen 43 mg/dL (7-17); Calcium 8.6 mg/dL (8.4-10.2); Carbon Dioxide 39 mmol/L (22-30); Chloride 94 mmol/L (98-107); Estimated CRCL calculation 38 ml/min; Estimated Glomerular Filt Rate 47; Glucose 172 mg/dL (65-110); Magnesium 2.2 mg/dL (1.6-2.3); Potassium 3.8 mmol/L (3.4-5.0); Sodium 140 mmol/L (137-145)
[2024-03-09 08:18] LABS: Glucose Point of Care 160 mg/dl (65-105)
[2024-03-09] MEDS: guaiFENesin 12 HR 600 MG TABCR PO (09:26)
[2024-03-09] MEDS: SPIRONOLACTONE 12.5 MG TABLET PO (09:26)
[2024-03-09] MEDS: FERROUS SULFATE 325 MG TABLET DR PO (09:26)
[2024-03-09] MEDS: VENLAFAXINE HCL XR 75 MG CAP.ER.24H 225 MG PO (09:26)
[2024-03-09] MEDS: EMPAGLIFLOZIN 10 MG TABLET PO (09:26)
[2024-03-09] MEDS: FUROSEMIDE 40 MG TABLET PO (09:26)
[2024-03-09] MEDS: GABAPENTIN 100 MG CAPSULE 200 MG PO ×2 (09:26→17:19)
[2024-03-09] MEDS: THERAPEUTIC MULTIVITAMINS/MINERALS TAB (*BKC) 1 TABLET PO (09:26)
[2024-03-09] MEDS: rOPINIRole HCL 1 MG TABLET 4 MG PO (09:27)
[2024-03-09] MEDS: ENOXAPARIN 40 MG/0.4 ML SYRINGE SUB-Q (09:27)
[2024-03-09] MEDS: PANTOPRAZOLE 40 MG TABLET PO (09:27)
[2024-03-09] MEDS: polyethylene glycoL 3350 17 GM POWD.PACK PO (09:27)
[2024-03-09] MEDS: CEFEPIME 2 GM/NS 50 ML 2 GM/50 ML BAG IVPB (09:27)
[2024-03-09] MEDS: MUPIROCIN 2% OINT 22 GM TUBE 1 APPLIC EACH NARE (09:28)
[2024-03-09] MEDS: TOLNAFTATE 1% POWDER 45 GM BTL 1 APPLIC TOPICAL (09:28)
--- NOTE | 2024-03-09 10:57 | P.PNIM_ITS ---
Progress Note: A&P Assessment and Plan (1) Acute respiratory failure with hypoxia and hypercapnia: Code(s): J96.01 - Acute respiratory failure with hypoxia; J96.02 - Acute respiratory failure with hypercapnia Status: Acute Assessment and Plan: Acute on chronic respiratory failure. Initially required BiPAP in the ED but now on her baseline oxygen requirement of 2 L NC. Patient is supposed to wear a CPAP at night but she is non-compliant as it makes her claustrophobic * Component of pneumonia vs CHF exacerbation vs exacerbation of chronic respiratory failure * ABG showed respiratory acidosis, compensated. * Chest CTA shows no PE, aortic dissection, with bilateral bibasilar atelectasis and pulmonary edema * Viral respiratory panel negative * MRSA nares +, on isolation. Mupirocin BID to bilateral nares. * Duo nebs Q 6 hours * Solu-Medrol 60 mg Q 6 hours, + wheezing (2) CHF exacerbation: Code(s): I50.9 - Heart failure, unspecified Status: Acute Assessment and Plan: HFpEF. Shortness of breath with pulmonary edema on imaging. BNP 3470. * Will obtain ECHO * Strict I/O, pure wick catheter placed in the ED * Fluid restriction 1500 ml daily * Lasix 40 mg IVP BID with last dose today at 5:00 p.m.. Plan to transition back to p.o. Lasix tomorrow., potassium 3.6 today will give 40 mEq of oral potassium. Continue spironolactone * ANÍBAL hose * BLE with +2 pitting edema as well as pain and erythema, particularly to the RLE. Venous Doppler study was partially completed (RLE) at the behest of the patient but what imaging was completed did not show DVT. Summary 1. Complete two-dimensional, color flow and Doppler transthoracic echocardiogram is performed. 2. Concentric left ventricular hypertrophy with normal systolic function and grade 1 diastolic noncompliance. 3. Biatrial dilation left greater than right. 4. Very small amounts of aortic and mitral valve regurgitation. 5. TR velocities consistent with pulmonary hypertension estimated PA pressure 66. 6. Compared with echocardiogram done in August of this year in this laboratory the findings are unchanged. (3) Pneumonia: Qualifiers: Laterality: unspecified laterality Lung location: unspecified part of lung Pneumonia type: due to unspecified organism Qualified Code(s): J18.9 - Pneumonia, unspecified organism Code(s): J18.9 - Pneumonia, unspecified organism Status: Acute Assessment and Plan: Presenting with febrile illness of 101.4, congested with productive cough of mackay-pink sputum, and initially increased oxygen requirement * WBC 8.1, lactic 1.2, procal 0.6 * Sputum was never collected, blood cultures negative * Started on Cefepime, Vancomycin, and Azithromycin. She had a hospitalization within the last 90 days with IV antibiotics, therefore HAP coverage. * MRSA nares + * Duo Nebs Q 6 hours * IS, PEP therapy * OOB to chair * PT/OT consulted Plan Feeding: Heart healthy with 1500 ml fluid restriction Analgesia: tylenol Thromboembolic prophylaxis: lovenox, ANÍBAL hose Ulcer prophylaxis: protonix Glycemic control:AC/HS accu check, hypoglycemia protocol, moderate dose SSI with meals and at HS given IV steroid. Fasting glucose 113 on Jardiance. A1C ordered. Bowel regimen: Miralax Lines: PIV Antibiotics: Cefepime, vanco, azithromycin Disposition: Patient presented with shortness of breath from [facility]. She had a documented fever of 101.2 on arrival to the ED. Initially she was placed on BiPAP in the ED but now is on her baseline oxygen at 2 L NC. She has a component of acut
[2024-03-09 11:44] LABS: Glucose Point of Care 169 mg/dl (65-105)
--- NOTE | 2024-03-09 13:00 | P.DS_ITS ---
DS: Admitting Diagnosis Discharge Date 03/09 Admitting Diagnosis resp failure DS: Discharge Diagnosis Discharge Diagnosis (1) Acute respiratory failure with hypoxia and hypercapnia: Code(s): J96.01 - Acute respiratory failure with hypoxia; J96.02 - Acute respiratory failure with hypercapnia Status: Acute Assessment and Plan: Acute on chronic respiratory failure. Initially required BiPAP in the ED but now on her baseline oxygen requirement of 2 L NC. Patient is supposed to wear a CPAP at night but she is non-compliant as it makes her claustrophobic * Component of pneumonia vs CHF exacerbation vs exacerbation of chronic respiratory failure * ABG showed respiratory acidosis, compensated. * Chest CTA shows no PE, aortic dissection, with bilateral bibasilar atelectasis and pulmonary edema * Viral respiratory panel negative * MRSA nares +, on isolation. Mupirocin BID to bilateral nares. * Duo nebs Q 6 hours * Solu-Medrol 60 mg Q 6 hours, + wheezing (2) CHF exacerbation: Code(s): I50.9 - Heart failure, unspecified Status: Acute Assessment and Plan: HFpEF. Shortness of breath with pulmonary edema on imaging. BNP 3470. * Will obtain ECHO * Strict I/O, pure wick catheter placed in the ED * Fluid restriction 1500 ml daily * Lasix 40 mg IVP BID with last dose today at 5:00 p.m.. Plan to transition back to p.o. Lasix tomorrow., potassium 3.6 today will give 40 mEq of oral potassium. Continue spironolactone * ANÍBAL hose * BLE with +2 pitting edema as well as pain and erythema, particularly to the RLE. Venous Doppler study was partially completed (RLE) at the behest of the patient but what imaging was completed did not show DVT. Summary 1. Complete two-dimensional, color flow and Doppler transthoracic echocardiogram is performed. 2. Concentric left ventricular hypertrophy with normal systolic function and grade 1 diastolic noncompliance. 3. Biatrial dilation left greater than right. 4. Very small amounts of aortic and mitral valve regurgitation. 5. TR velocities consistent with pulmonary hypertension estimated PA pressure 66. 6. Compared with echocardiogram done in August of this year in this laboratory the findings are unchanged. (3) Pneumonia: Qualifiers: Laterality: unspecified laterality Lung location: unspecified part of lung Pneumonia type: due to unspecified organism Qualified Code(s): J18.9 - Pneumonia, unspecified organism Code(s): J18.9 - Pneumonia, unspecified organism Status: Acute Assessment and Plan: Presenting with febrile illness of 101.4, congested with productive cough of mackay-pink sputum, and initially increased oxygen requirement * WBC 8.1, lactic 1.2, procal 0.6 * Sputum was never collected, blood cultures negative * Started on Cefepime, Vancomycin, and Azithromycin. She had a hospitalization within the last 90 days with IV antibiotics, therefore HAP coverage. * MRSA nares + * Duo Nebs Q 6 hours * IS, PEP therapy * OOB to chair * PT/OT consulted Plan Feeding: Heart healthy with 1500 ml fluid restriction Analgesia: tylenol Thromboembolic prophylaxis: lovenox, NAÍBAL hose Ulcer prophylaxis: protonix Glycemic control:AC/HS accu check, hypoglycemia protocol, moderate dose SSI with meals and at HS given IV steroid. Fasting glucose 113 on Jardiance. A1C ordered. Bowel regimen: Miralax Lines: PIV Antibiotics: Cefepime, vanco, azithromycin Disposition: Patient presented with shortness of breath from [facility]. She had a documented fever of 101.2 on arrival to the ED. Gurpreet
[2024-03-09 15:16] LABS: SARS-CoV-2 RNA PCR Negative (Negative)
[2024-03-09 16:39] LABS: Glucose Point of Care 172 mg/dl (65-105)
== END 2024-03-09 17:45 | DRG 291 ==
LOC: ANHED 22:41 → ANHIMU 23:20 → ANH3MEDSUR 03-08 13:30 → ANHIMU 03-10 15:54
PROVIDERS: Nurse Practitioner Acute Care; Admitting Provider Internal Medicine; Emergency Provider Physician Assistant; PCP Family Medicine; Visit Provider Nurse Practitioner
DX: I13.0 Hypertensive heart and chronic kidney disease with heart failure and stage 1 through stage 4 chronic kidney disease, or unspecified chronic kidney disease (principal); I50.33 Acute on chronic diastolic (congestive) heart failure; J18.9 Pneumonia, unspecified organism; J96.01 Acute respiratory failure with hypoxia; J96.02 Acute respiratory failure with hypercapnia; I48.20 Chronic atrial fibrillation, unspecified; N39.0 Urinary tract infection, site not specified; I27.20 Pulmonary hypertension, unspecified; I73.9 Peripheral vascular disease, unspecified; N18.31 Chronic kidney disease, stage 3a; K74.60 Unspecified cirrhosis of liver; E03.9 Hypothyroidism, unspecified; E78.5 Hyperlipidemia, unspecified; M47.816 Spondylosis without myelopathy or radiculopathy, lumbar region; M54.9 Dorsalgia, unspecified; G89.29 Other chronic pain; G40.909 Epilepsy, unspecified, not intractable, without status epilepticus; F32.A Depression, unspecified; Z96.649 Presence of unspecified artificial hip joint; Z20.822 Contact with and (suspected) exposure to COVID-19; Z96.659 Presence of unspecified artificial knee joint; Z11.52 Encounter for screening for COVID-19; Z22.322 Carrier or suspected carrier of Methicillin resistant Staphylococcus aureus; Z95.0 Presence of cardiac pacemaker; Z79.82 Long term (current) use of aspirin; Z87.891 Personal history of nicotine dependence; Z86.718 Personal history of other venous thrombosis and embolism; Z86.011 Personal history of benign neoplasm of the brain
CPT/HCPCS: 36415; 36600; 71045; 71275; 80053; 80202; 81001; 82565; 82805; 82948; 83036; 83605; 83690; 83735; 83880; 84145; 84443; 84484; 85025; 85055; 85380; 85610; 85730; 86140; 87040; 87635; 87637; 87641; 93005; 93306; 93971; 94640; 94667; 96365; 96367; 96375; 97110; 97161; 97166; 97530; 99285; A9270; J0456; J0692; J0696; J1650; J1815; J1940; J2919; J3370; Q9967

== ENCOUNTER 2024-03-16 14:51 | Inpatient (IN) | payer MEDICARE, SELFPAY ==
--- NOTE | ~2024-03-16 | XR_ITS ---
Portable chest x-ray Comparison: 03/16/2024 Clinical History: Shortness of breath Findings: There are probable central congestive changes. Possible mild interstitial edema or chronic interstitial disease. Probable linear scarring or atelectasis bilaterally. Cardiomediastinal silhou ette is stable. Stable vertebroplasty no spine noted. Impression: Central congestive change with probable mild pulmonary edema and/or chronic interstitial disease. Linear scarring or atelectasis bilaterally. Reviewed, dictated and finalized at [facility]. Impression: Central congestive change with probable mild pulmonary edema and/or chronic int erstitial disease. Linear scarring or atelectasis bilaterally.
--- NOTE | ~2024-03-16 | CT_ITS ---
EXAMINATION: CT brain wo con DATE: 03/16/2024 19:35 INDICATION: weakness . TECHNIQUE: Computed tomography (CT) of the head was performed without intravenous contrast. The mA wa s adjusted according to patient size. Iterative reconstruction technique was employed. The dose-lengt h product was 681.00 mGy-cm. COMPARISON: 12/10/2023. FINDINGS: No acute intracranial hemorrhage or extra-axial fluid collection. No hydrocephalus, mass, or herniation. No acute ischemic infarct. Unremarkable dural venous sinus attenuation. No acute osseous abnormality. Right parietal craniotomy. Moderate left and minimal right mastoid fluid. The remaining aerated spaces are clear. Moderate atrophy and chronic white matter change. Atherosclerotic intracranial calcification. Bilater al lens replacements. Right parieto-occipital encephalomalacia with overlying dural calcification. IMPRESSION: No acute intracranial process. Reviewed, dictated and finalized at location [facility].
--- NOTE | ~2024-03-16 | XR_ITS ---
XR chest 2V 03/16/2024 17:38 Indication: Weakness and shortness of breath Procedure: 2 view chest Comparison: Comparison to multiple prior studies sequentially, with oldest reviewed study dated 04/2024. Findings: Cardiomegaly. Diffuse bilateral airspace disease. Elevated right diaphragm. No pneumothorax . No acute osseous abnormality. Impression: 1: Diffuse bilateral airspace disease may represent edema or pneumonia. Reviewed, dictated and finalized at location [facility]. Impression: 1: Diffuse bilateral airspace disease may represent edema or pneumonia.
[2024-03-16 14:53] VITALS: BP 133/58; PULSE 65; RESP 16; TEMP 37; O2SAT 100
--- NOTE | 2024-03-16 17:08 | ECG_ITS ---
Test Date: 2024-03-16 17:15:01 Measurements Intervals [place] Rate: 71 P: 0 IA: 0 QRS: 33 QRSD: 111 T: 28 QT: 376 QTc: 410 Interpretive Statements ATRIAL FIBRILLATION ELECTRONIC VENTRICULAR PACED COMPLEXES INCOMPLETE RIGHT BUNDLE BRANCH BLOCK BASELINE ARTIFACT- I, II, III, AVR, AVL, AVF, V1-V3 ABNORMAL ECG Compared to ECG 03/06/2024 19:44:53 ELECTRONIC VENTRICULAR PACED COMPLEXES NOW PRESENT Electronically Signed On 03-16-2024 18:23:57 CDT by Yazan Mehta D.O.
--- NOTE | 2024-03-16 17:09 | PC.NURSE ---
Patient refused to put on hospital gown
[2024-03-16 17:30] VITALS: BP 120/63; PULSE 61; RESP 20; O2SAT 100
[2024-03-16 18:00] VITALS: BP 121/58; PULSE 74; RESP 20; O2SAT 100
[2024-03-16 18:10] LABS: Basophils Percent Auto 0.3 % (0.2-1.2); Eosinophils Percent Auto 0.3 % (0-4.4); Hematocrit 38.6 % (37.0-47.0); Hemoglobin 11.6 g/dL (12.0-15.0); Immature Granulocyte Absolute 0.03 K/mm3 (0.00-0.031); Immature Granulocyte Percent A 0.4 % (0-0.5); Lymphocytes Absolute Auto 0.47 K/mm3 (0.9-3.2); Lymphocytes Percent Auto 6.3 % (18.3-44.2); Mean Corpuscular HGB Conc 30.1 g/dl (32-36); Mean Corpuscular Hemoglobin 30.8 pg (26-34); Mean Corpuscular Volume 102.4 fl (80-100); Mean Platelet Volume 10.1 fl (7.4-10.4); Monocytes Absolute Auto 1.3 K/mm3 (0.1-0.6); Monocytes Percent Auto 17.1 % (2.6-8.5); Neutrophils Absolute Auto 5.7 K/mm3 (1.3-6.7); Neutrophils Percent Auto 75.6 % (45.5-73.1); Platelet Count Result 151 k/mm3 (150-375); Red Blood Count 3.77 M/mm3 (4.2-5.4); Red Cell Distribution Width 16.6 % (11.5-14.5); White Blood Count 7.5 K/mm3 (4.5-10.0)
[2024-03-16 18:20] LABS: Alanine Aminotransferase 24 U/L (6-35); Albumin Level 4.3 g/dL (3.5-5.1); Alkaline Phosphatase 179 U/L (38-126); Aspartate Amino Transferase 31 U/L (14-36); Bilirubin,Total 1.1 mg/dL (0.2-1.3); Blood Urea Nitrogen 27 mg/dL (7-17); Calcium 8.9 mg/dL (8.4-10.2); Carbon Dioxide > 40 mmol/L (22-30); Chloride 93 mmol/L (98-107); Estimated CRCL calculation 43 ml/min; Estimated Glomerular Filt Rate 59; Glucose 117 mg/dL (65-110); Potassium 4.8 mmol/L (3.4-5.0); Sodium 140 mmol/L (137-145)
[2024-03-16 18:34] LABS: Appearance Urine Clear (Clear); Bacteria Urine None Seen /hpf; Bilirubin Urine Negative (Negative); Blood Urine Negative (Negative); Color Urine Yellow (Yellow); Glucose Urine UA 3+ mg/dL (Negative); Ketones Urine Negative (Negative); Leukocyte Esterase Ur 2+ LEU/UL (Negative); Need Manual Microscopic Reviewed; Nitrate Urine Negative (Negative); Protein Urine 1+ mg/dL (Negative); Specific Grav Ur 1.015 (1.001-1.035); Squamous Epithelial Cell Urine Occasional /hpf (Few); Urobilinogen Urine 0.2 mg/dL (<2.0)
[2024-03-16 18:37] LABS: Add Urine Microscopic? YES
--- NOTE | 2024-03-16 19:05 | ED.WEAKNESS ---
HPI - Weakness General Chief complaint: Weakness Stated complaint: tremors, leg edema Time Seen by Provider: 03/16/24 17:58 History of Present Illness HPI Narrative: This note was entered in error as there is a duplicate completed HPI/MDM/Disposition on another note please refer to that from today's visit for further details. Please disregard this note. Related Data Home Medications Medication Instructions Recorded Confirmed aspirin 325 mg tablet 325 mg PO DAILY 08/06/19 03/17/24 gabapentin 100 mg capsule 200 mg PO BID 08/13/21 03/17/24 ropinirole 4 mg tablet 4 mg PO Q12H 04/28/23 03/17/24 ascorbic acid (vitamin C) 500 mg 500 mg PO DAILY 08/04/23 03/17/24 tablet multivitamin,[id number] 1 tablet PO DAILY 08/04/23 03/16/24 venlafaxine 150 mg 150 mg PO DAILY 08/04/23 03/17/24 capsule,extended release 24 hr albuterol sulfate 90 mcg/actuation 2 puff inhalation Q4H PRN 09/20/23 03/17/24 aerosol inhaler (Ventolin HFA) Shortness Of Breath Or Wheezing bisacodyl 10 mg rectal suppository 10 mg RECTAL DAILY PRN Constipation 09/20/23 03/17/24 ferrous sulfate 325 mg (65 mg 325 mg PO DAILY 09/20/23 03/17/24 iron) tablet polyvinyl alcohol-povidone (PF) 2 drp EACH EYE QID PRN Dry Eyes 09/20/23 03/17/24 1.4 %-0.6 % eye drops in a dropperette (Refresh Classic (PF)) potassium chloride 20 mEq 20 meq PO DAILY 09/20/23 03/17/24 tablet,extended release haloperidol 1 mg tablet 1 mg PO HS 03/06/24 03/17/24 lifitegrast 5 % eye drops in a 1 drp EACH EYE BID 03/06/24 03/17/24 dropperette (Xiidra) acetaminophen 325 mg tablet 650 mg PO Q6H PRN Pain 03/07/24 03/17/24 cyanocobalamin (vitamin B-12) 500 500 mcg PO DAILY 03/07/24 03/17/24 mcg tablet gabapentin 100 mg capsule 300 mg PO HS 03/07/24 03/17/24 magnesium hydroxide 400 mg/5 mL 30 ml PO HS PRN Constipation 03/07/24 03/17/24 oral suspension (Milk of Magnesia) melatonin 5 mg tablet 5 mg PO HS 03/07/24 03/17/24 polyethylene glycol 3350 17 gram 17 g PO DAILY PRN Constipation 03/07/24 03/17/24 oral powder packet (Miralax) venlafaxine 75 mg capsule,extended 75 mg PO DAILY 03/07/24 03/17/24 release 24 hr hydrocodone 10 mg-acetaminophen 1 tablet PO BID 03/17/24 03/17/24 325 mg tablet hydrocodone 10 mg-acetaminophen 1 tablet PO Q6H PRN Pain 03/17/24 03/17/24 325 mg tablet Allergies Allergy/AdvReac Type Severity Reaction Status Date / Time Penicillins Allergy Severe Hives Verified 03/16/24 14:56 Sulfa (Sulfonamide Allergy Intermediate hives Verified 03/16/24 14:56 Antibiotics) sulfamethoxazole Allergy Hives Verified 03/16/24 14:56 [From Bactrim] trimethoprim [From Bactrim] Allergy Hives Verified 03/16/24 14:56 morphine AdvReac Intermediate Hallucinati Verified 03/16/24 14:56 ng bumetanide AdvReac Nausea Verified 03/16/24 14:56 PMFSH Past Medical History Medical History Afib patient had wactchman placed for a. fib approximately 2 yrs ago CHF exacerbation Choking Chronic a-fib Chronic pain disorder CKD (chronic kidney disease), stage III Essential (primary) hypertension Fatigue Fracture of knee prosthesis History of blood transfusion History of brain tumor History of DVT (deep vein thrombosis) HLD (hyperlipidemia) Hoarseness of voice HTN (hypertension) Hypertension Hypothyroidism (acquired) Hypothyroidism, unspecified Lumbar spondylosis Major depressive disorder, single episode, unspecified Minor head injury without loss of consciousness Numbness and tingling in left hand Obesity Other fracture of right femur, initial encounter for closed fracture PAD (peripheral artery disease) Unspecified injury of head, sequela Surgical History Surgical History Brain tumor (benign) excised H/O thyroidectomy History of appendectomy History of back surgery History of hip replacement History of knee replacement History of repa
[2024-03-16 19:29] LABS: NT Pro B Type Natriuretic Pept 4480 pg/mL (19.9-100)
--- NOTE | 2024-03-16 20:11 | PCRCNOTE ---
VBG obtained after the 30 minute window due to laboratory being unable to draw stat. RT ran VBG results when sample was obtained from lab.
[2024-03-16] MEDS: FUROSEMIDE INJ 100 MG/10 ML VIAL 40 MG IV PUSH (20:14)
[2024-03-16] MEDS: CEFEPIME 2 GM/NS 50 ML 2 GM/50 ML BAG IVPB (20:15)
[2024-03-16 20:33] VITALS: BP 141/79; PULSE 64; RESP 16; TEMP 37.6; O2SAT 100
[2024-03-16 20:33] LABS: Fractional Inspired Oxygen 28 %; HCO3 VBG 42.8 mEq/l (24.0-30.0); PO2 VBG 37.1 mmHg (35.0-45.0)
[2024-03-16 20:35] LABS: Device NASAL CANNULA; PCO2 VBG 63.8 mmHg (42.0-48.0); pH VBG 7.444 (7.300-7.400)
[2024-03-16 20:40] LABS: Estimated CRCL calculation 47 ml/min; Estimated Glomerular Filt Rate > 60
[2024-03-16 21:40] LABS: MRSA (PCR) NOT DETECTED (NOT DETECTE)
--- NOTE | 2024-03-16 21:45 | PC.NURSE ---
pts 20g in right AC infiltrated. This RN as well as Consuelo RN were not successful in starting new IV. Provider made aware.
--- NOTE | 2024-03-16 21:58 | PM.IMHP ---
H&P: HPI History of Present Illness Date/Time: 03/16/24 21:58 Chief Complaint: Cough shortness of breath Narrative: 88-year-old female past medical history of atrial fibrillation, chronic renal failure, congestive heart failure, hypertension, major depression came to hospital complaining of shortness of breath and cough with productive sputum patient was recently discharged from the hospital with oral antibiotics but was brought back to the hospital because of lower extremity leg swelling shortness of breath and elevated BNP. Patient chest x-ray showed lung edema as well Review of Systems Review of Systems: All systems reviewed & are unremarkable except as noted in HPI and below PMFSH Past Medical History Medical History Afib patient had wactchman placed for a. fib approximately 2 yrs ago CHF exacerbation Choking Chronic a-fib Chronic pain disorder CKD (chronic kidney disease), stage III Essential (primary) hypertension Fatigue Fracture of knee prosthesis History of blood transfusion History of brain tumor History of DVT (deep vein thrombosis) HLD (hyperlipidemia) Hoarseness of voice HTN (hypertension) Hypertension Hypothyroidism (acquired) Hypothyroidism, unspecified Lumbar spondylosis Major depressive disorder, single episode, unspecified Minor head injury without loss of consciousness Numbness and tingling in left hand Obesity Other fracture of right femur, initial encounter for closed fracture PAD (peripheral artery disease) Unspecified injury of head, sequela Surgical History Surgical History Brain tumor (benign) excised H/O thyroidectomy History of appendectomy History of back surgery History of hip replacement History of knee replacement History of repair of ruptured globe Hx of right inguinal hernia repair 06/11/22 Hx of tonsillectomy Family History Family History Sibling Family history of multiple sclerosis, Onset Age: 43 Father Acute myocardial infarction Mother , age 60 Heart disease Acute myocardial infarction Social History Social History Smoking packs per day: 0.25 Smoking cigarettes per day: 5.0 Years smoked: 15 Smoking pack-years: 3.75 Smoking status: Former smoker Second hand tobacco smoke exposure: No Additional smoking assessment comments: UNABLE TO RECALL SMOKING DETAILS - QUIT LATE Alcohol intake: never Drinks per week: 1 Alcohol use details: STATES MAYBE 2/MONTH Substance use: never Substance use type: does not use Do You Feel Safe in your Home?: No Lack of Transportation: No Lack of Food: Never True Current Housing: Decline to Answer Concerned About Future Housing: Decline to Answer Difficulty Paying Gas/Electric Bills: Decline to Answer Difficulty Paying for Meds: Decline to Answer Currently Unemployed: Decline to Answer Education: Don't Know Difficulty w/ Childcare or Family Care: Decline to Answer Living arrangements: alone Occupation/Education: retired 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 Gender identity (if verbalized by the patient): Female Spiritual care concerns: No Meds Home Medications and Allergies Home Medications Medication Instructions Recorded Confirmed Type aspirin 325 mg tablet 325 mg PO DAILY 08/06/19 03/06/24 History gabapentin 100 mg capsule 200 mg PO BID 08/13/21 03/07/24 History atorvastatin 10 mg tablet 10 mg PO HS #90 tabs 04/21/23 03/06/24 Rx levothyroxine 88 mcg tablet 88 mcg PO DAILY #90 tabs 04/21/23 03/06/24 Rx omeprazole 20 mg capsule,delayed 20 mg PO DAILY #90 caps 04/21/23 03/06/24 Rx release ropinirole 4 mg tablet 4 mg PO Q12H 04/28/23 03/07/24 History furosemide 40 mg tablet 40 mg PO QAM #90 tabs
[2024-03-16] MEDS: VANCOMYCIN 2,000 MG/NS 500 ML 2,000 MG/500 ML BAG 250 MG IVPB (22:32)
[2024-03-16 22:33] VITALS: BP 128/61; PULSE 71; RESP 16; O2SAT 95
[2024-03-17] VITALS (7 sets, daily range): BP systolic 113–160; BP diastolic 59–78; PULSE 59–65; RESP 17–22; TEMP 36.3–36.7; O2SAT 91–100; BMI 32.8
--- NOTE | 2024-03-17 00:24 | PC.NURSE ---
[email or web address]/[email or web address] Admission Note: The patient,Zohreh Oakes,88 y/o, was given written information regarding hospital policies, unit procedures and contact persons. Patient's smoking status: Former smoker.
--- NOTE | 2024-03-17 01:22 | ED.WEAKNESS ---
HPI - Weakness General Chief complaint: Weakness Stated complaint: tremors, leg edema Time Seen by Provider: 03/16/24 17:58 History of Present Illness HPI Narrative: This is an 88-year-old female with a past medical history significant for congestive heart failure, COPD, atrial fibrillation. Today patient presents from her custodial facility for concerns of generalized weakness, lethargy, cough, weight gain and extremity swelling. On review of the EMR patient was recently seen and admitted to this facility for a mild COPD/CHF exacerbation requiring IV diuretics and antibiotics. She had a hospital-acquired pneumonia at that time. On my initial assessment the patient she is awake alert and oriented and she states she is not sure why she was sent to the hospital. When I was able to further delineate she does endorse that she has been gaining weight especially in the legs and feeling like she is having a productive cough. Patient states that she has also been taking her medications but knows that she has not been peeing as often as she was previously. She is awake alert x3. Denies any trauma or headache. No chest pain, shortness breast presently, no nausea, vomiting, abdominal pain, back pain, fever, chills. Related Data Home Medications Medication Instructions Recorded Confirmed aspirin 325 mg tablet 325 mg PO DAILY 08/06/19 03/17/24 gabapentin 100 mg capsule 200 mg PO BID 08/13/21 03/17/24 ropinirole 4 mg tablet 4 mg PO Q12H 04/28/23 03/17/24 ascorbic acid (vitamin C) 500 mg 500 mg PO DAILY 08/04/23 03/17/24 tablet multivitamin,[id number] 1 tablet PO DAILY 08/04/23 03/16/24 venlafaxine 150 mg 150 mg PO DAILY 08/04/23 03/17/24 capsule,extended release 24 hr albuterol sulfate 90 mcg/actuation 2 puff inhalation Q4H PRN 09/20/23 03/17/24 aerosol inhaler (Ventolin HFA) Shortness Of Breath Or Wheezing bisacodyl 10 mg rectal suppository 10 mg RECTAL DAILY PRN Constipation 09/20/23 03/17/24 ferrous sulfate 325 mg (65 mg 325 mg PO DAILY 09/20/23 03/17/24 iron) tablet polyvinyl alcohol-povidone (PF) 2 drp EACH EYE QID PRN Dry Eyes 09/20/23 03/17/24 1.4 %-0.6 % eye drops in a dropperette (Refresh Classic (PF)) potassium chloride 20 mEq 20 meq PO DAILY 09/20/23 03/17/24 tablet,extended release haloperidol 1 mg tablet 1 mg PO HS 03/06/24 03/17/24 lifitegrast 5 % eye drops in a 1 drp EACH EYE BID 03/06/24 03/17/24 dropperette (Xiidra) acetaminophen 325 mg tablet 650 mg PO Q6H PRN Pain 03/07/24 03/17/24 cyanocobalamin (vitamin B-12) 500 500 mcg PO DAILY 03/07/24 03/17/24 mcg tablet gabapentin 100 mg capsule 300 mg PO HS 03/07/24 03/17/24 magnesium hydroxide 400 mg/5 mL 30 ml PO HS PRN Constipation 03/07/24 03/17/24 oral suspension (Milk of Magnesia) melatonin 5 mg tablet 5 mg PO HS 03/07/24 03/17/24 polyethylene glycol 3350 17 gram 17 g PO DAILY PRN Constipation 03/07/24 03/17/24 oral powder packet (Miralax) venlafaxine 75 mg capsule,extended 75 mg PO DAILY 03/07/24 03/17/24 release 24 hr hydrocodone 10 mg-acetaminophen 1 tablet PO BID 03/17/24 03/17/24 325 mg tablet hydrocodone 10 mg-acetaminophen 1 tablet PO Q6H PRN Pain 03/17/24 03/17/24 325 mg tablet Allergies Allergy/AdvReac Type Severity Reaction Status Date / Time Penicillins Allergy Severe Hives Verified 03/16/24 14:56 Sulfa (Sulfonamide Allergy Intermediate hives Verified 03/16/24 14:56 Antibiotics) sulfamethoxazole Allergy Hives Verified 03/16/24 14:56 [From Bactrim] trimethoprim [From Bactrim] Allergy Hives Verified 03/16/24 14:56 morphine AdvReac Intermediate Hallucinati Verified 03/16/24 14:56 ng bumetanide AdvReac Nausea Verified 03/16/24 14:56 Review of Systems Review of Systems: As reviewed above in the [facility] Past Medical History Medical History Afib patient had wactchman placed for a. fib approximately 2 yrs ago CHF exacerbation Cho
--- NOTE | 2024-03-17 01:27 | ADMGEN ---
This patient, Zohreh Oakes, was admitted to 3 [facility] Surg Room 315-02. Patient/family oriented to hospital policies and general routines including ID bracelet, bed and alarms, visiting hours, pain management, procedures, bathroom and other care routines, personal items, smoking policy, room service/diet, and visiting hours. Information on how to activate the Rapid Response Team has been discussed. Patient/Family are encouraged to report perceived risks to care and to ask questions if they do not understand what they are told or what they should do.
--- NOTE | 2024-03-17 03:20 | PC.NURSE ---
Called Dr. Lorenzana to inform him about no IV access at this time. Informed him that she had had multiple IV sticks in the ER (6 along with ER doctor who obtained most recent access), and that that IV had infiltrated. Informed him that Pt. received Cefepime & IV lasix in ER but IV infiltrated with Vanco infusing. Advised Dr. Lorenzana that we were asking the IV team to see Pt. in the AM to attempt IV access. I asked Dr. Lorenzana if he would like Pt. to receive any antibiotics PO instead and he does not want to change any IV antibiotics changed to PO. He wants to wait until IV access is obtained in AM.
--- NOTE | 2024-03-17 07:50 | PM.IMPN ---
Progress Note: A&P Assessment and Plan (1) Acute exacerbation of CHF (congestive heart failure): Code(s): I50.9 - Heart failure, unspecified Status: Acute Assessment and Plan: Presumed CHF exacerbation with bilateral lower extremity pitting edema, pulmonary edema on imaging BNP elevated at 4480 pg/ml Lasix 40 mg IV push b.i.d. Daily weights. Admission weight is 92.4 kg per bed scale Strict Intake and output. Villarreal catheter in place. Heart healthy diet with a fluid restriction of 1500 mils Compression stockings ordered Optimize medications Echo from 03-07 showed left ventricular hypertrophy with normal systolic function and grade 1 diastolic noncompliance, pulmonary hypertension with an estimated pulmonary artery pressure of 66, findings were similar to echo that was completed in August 2023. (2) Pneumonia: Code(s): J18.9 - Pneumonia, unspecified organism Status: Acute Assessment and Plan: Concerns for recurrent pneumonia with productive sputum, T-max 100.6? Patient has been started on HAP treatment with vancomycin, cefepime, azithromycin given her recent hospitalization. MRSA PCR was negative therefore vancomycin was discontinued. Low suspicion for pneumonia as she was just treated for pneumonia and discharge on 03/09. Continue with Rocephin for possible UTI. Procalcitonin 1.8 Viral respiratory panel has been ordered Sputum culture, urine culture pending. Pneumococcal, mycoplasma IgM, Legionella pending Blood cultures pending [facility] p.r.n. incentive spirometry, pep therapy (3) Acute on chronic hypoxic respiratory failure: Code(s): J96.21 - Acute and chronic respiratory failure with hypoxia Status: Acute Assessment and Plan: Patient is on 2 L nasal cannula (4) Abnormal urinalysis: Code(s): R82.90 - Unspecified abnormal findings in urine Status: Acute Assessment and Plan: UA is mildly concerning for UTI with +2 leuks, RBC 3-5, WBC 11-20 patient reports urinary frequency urine culture IV rocehpin ordered Plan Feeding: Diabetic diet with a fluid restriction of 1500 mils Analgesia: Tylenol Thromboembolic prophylaxis: SCDs Lines: PIV placed via ultrasound Antibiotics: Rocephin Disposition: Patient presented to the emergency room with 8 lb weight gain, increased tremors, lethargy. She was admitted for a CHF exacerbation versus possible pneumonia. She had just been discharged on 03/09 for similar complaints. She is receiving HAP antibiotic treatment and IV diuresis. Home medications will be optimized. Anticipate patient returning back to previous living arrangements. Advance Care Plan I have confirmed that the patient's Advanced Care Plan is present, code status is documented, or surrogate decision maker is listed in patient medical record.: Yes Medication Reconciliation I have utilized all available resources to obtain, update and review the patients current medications (includes all prescriptions, OTC, herbals, cannabis, and nutritional supplements).: Yes Subjective Date/time seen: 03/17/24 07:50 Interval history: This is an 88-year-old female with a past medical history significant for congestive heart failure, COPD, atrial fibrillation who presents from her [facility] facility for concerns of generalized weakness, lethargy, cough, weight gain and extremity swelling. She was recently discharged from this facility on 03/09 after receiving treatment for CHF exacerbation with superimposed pneumonia. 03/17: Patient seen resting in bed in no acute distress. She is on her baseline 2 L nasal cannula. Asked her why she came hospital she states she does not know as she feels fine. She is alert and oriented x4. She states she does have a productive cough still but is less than was before. She was short of breath with exertion which is her baseline. She does report urinary frequency and minimal urine output. Revi
[2024-03-17 08:01] LABS: Glucose Point of Care 70 mg/dl (65-105)
[2024-03-17 08:20] LABS: Basophils Percent Auto 0.2 % (0.2-1.2); Eosinophils Absolute Auto 0.1 K/mm3 (0-0.3); Eosinophils Percent Auto 1.4 % (0-4.4); Hematocrit 33.7 % (37.0-47.0); Hemoglobin 10.2 g/dL (12.0-15.0); Immature Granulocyte Absolute 0.02 K/mm3 (0.00-0.031); Immature Granulocyte Percent A 0.5 % (0-0.5); Lymphocytes Absolute Auto 0.49 K/mm3 (0.9-3.2); Lymphocytes Percent Auto 11.7 % (18.3-44.2); Mean Corpuscular HGB Conc 30.3 g/dl (32-36); Mean Corpuscular Hemoglobin 30.5 pg (26-34); Mean Corpuscular Volume 100.9 fl (80-100); Mean Platelet Volume 10.3 fl (7.4-10.4); Monocytes Absolute Auto 0.7 K/mm3 (0.1-0.6); Monocytes Percent Auto 17.1 % (2.6-8.5); Neutrophils Absolute Auto 2.9 K/mm3 (1.3-6.7); Neutrophils Percent Auto 69.1 % (45.5-73.1); Platelet Count Result 136 k/mm3 (150-375); Red Blood Count 3.34 M/mm3 (4.2-5.4); Red Cell Distribution Width 16.6 % (11.5-14.5); White Blood Count 4.2 K/mm3 (4.5-10.0)
[2024-03-17 08:25] LABS: Alanine Aminotransferase 21 U/L (6-35); Albumin Level 3.7 g/dL (3.5-5.1); Alkaline Phosphatase 162 U/L (38-126); Aspartate Amino Transferase 33 U/L (14-36); Bilirubin,Total 1.3 mg/dL (0.2-1.3); Blood Urea Nitrogen 26 mg/dL (7-17); Calcium 8.6 mg/dL (8.4-10.2); Carbon Dioxide > 40 mmol/L (22-30); Chloride 92 mmol/L (98-107); Estimated CRCL calculation 50 ml/min; Estimated Glomerular Filt Rate > 60; Glucose 73 mg/dL (65-110); Potassium 4.1 mmol/L (3.4-5.0); Sodium 138 mmol/L (137-145)
[2024-03-17] MEDS: ASPIRIN 325 MG TABLET PO (08:35)
[2024-03-17] MEDS: EMPAGLIFLOZIN 10 MG TABLET PO (08:37)
[2024-03-17] MEDS: FERROUS SULFATE 325 MG TABLET DR BY MOUTH (08:37)
[2024-03-17] MEDS: POTASSIUM CHLORIDE 20 MEQ ER TABLET PO (08:37)
[2024-03-17] MEDS: rOPINIRole HCL 1 MG TABLET 4 MG PO ×2 (08:37→20:41)
[2024-03-17] MEDS: SPIRONOLACTONE 12.5 MG TABLET PO (08:37)
[2024-03-17] MEDS: GABAPENTIN 100 MG CAPSULE 200 MG PO ×2 (08:37→16:01)
[2024-03-17] MEDS: VENLAFAXINE HCL XR 75 MG CAP.ER.24H 225 MG PO (08:37)
[2024-03-17] MEDS: AZITHROMYCIN IV 250 MG in SODIUM CHLORIDE 0.9% IV 250 ML IVPB (08:43)
[2024-03-17] MEDS: FUROSEMIDE INJ 40 MG/4 ML VIAL IV PUSH ×2 (08:44→16:01)
[2024-03-17 09:33] LABS: Procalcitonin 1.8 ng/mL
[2024-03-17 12:41] LABS: Glucose Point of Care 105 mg/dl (65-105)
[2024-03-17] MEDS: cefTRIAXone 2 GM/NS 100 ML 2 GM/100 ML BAG IVPB (15:38)
[2024-03-17 16:43] LABS: Glucose Point of Care 88 mg/dl (65-105)
[2024-03-17] MEDS: GABAPENTIN 300 MG CAPSULE PO (20:41)
[2024-03-17] MEDS: MELATONIN 5 MG TABLET PO (20:41)
[2024-03-17] MEDS: HALOPERIDOL 1 MG TABLET PO (20:41)
[2024-03-17] MEDS: ATORVASTATIN 10 MG TABLET PO (20:41)
[2024-03-17 20:54] LABS: Glucose Point of Care 101 mg/dl (65-105)
[2024-03-18 06:00] VITALS: BP 166/82; PULSE 65; RESP 22; TEMP 36.6; O2SAT 97
[2024-03-18 06:30] LABS: Basophils Percent Auto 0.2 % (0.2-1.2); Eosinophils Absolute Auto 0.1 K/mm3 (0-0.3); Eosinophils Percent Auto 1.2 % (0-4.4); Hemoglobin 10.4 g/dL (12.0-15.0); Immature Granulocyte Absolute 0.01 K/mm3 (0.00-0.031); Immature Granulocyte Percent A 0.2 % (0-0.5); Lymphocytes Absolute Auto 0.41 K/mm3 (0.9-3.2); Lymphocytes Percent Auto 8.4 % (18.3-44.2); Mean Corpuscular HGB Conc 30.6 g/dl (32-36); Mean Corpuscular Hemoglobin 30.6 pg (26-34); Mean Platelet Volume 10.4 fl (7.4-10.4); Monocytes Absolute Auto 0.8 K/mm3 (0.1-0.6); Monocytes Percent Auto 16.6 % (2.6-8.5); Neutrophils Absolute Auto 3.6 K/mm3 (1.3-6.7); Neutrophils Percent Auto 73.4 % (45.5-73.1); Platelet Count Result 142 k/mm3 (150-375); Red Cell Distribution Width 16.5 % (11.5-14.5); White Blood Count 4.9 K/mm3 (4.5-10.0)
[2024-03-18 06:35] LABS: Influenza A QL RT-PCR Negative (Negative); Influenza B QL RT-PCR Negative (Negative); RSV RNA, RT-PCR Negative (Negative); SARS-CoV-2 RNA PCR Negative (Negative)
[2024-03-18 06:37] LABS: Alanine Aminotransferase 23 U/L (6-35); Albumin Level 3.7 g/dL (3.5-5.1); Alkaline Phosphatase 171 U/L (38-126); Aspartate Amino Transferase 30 U/L (14-36); Bilirubin,Total 0.8 mg/dL (0.2-1.3); Blood Urea Nitrogen 24 mg/dL (7-17); Calcium 8.7 mg/dL (8.4-10.2); Carbon Dioxide > 40 mmol/L (22-30); Chloride 90 mmol/L (98-107); Estimated CRCL calculation 50 ml/min; Estimated Glomerular Filt Rate > 60; Glucose 87 mg/dL (65-110); Potassium 3.9 mmol/L (3.4-5.0); Sodium 139 mmol/L (137-145)
[2024-03-18 07:56] VITALS: O2SAT 97
[2024-03-18 08:00] VITALS: O2SAT 97
--- NOTE | 2024-03-18 08:00 | PM.IMPN ---
Progress Note: A&P Assessment and Plan (1) Acute exacerbation of CHF (congestive heart failure): Code(s): I50.9 - Heart failure, unspecified Status: Acute Assessment and Plan: Presumed CHF exacerbation with bilateral lower extremity pitting edema, pulmonary edema on imaging BNP elevated at 4480 pg/ml Lasix 40 mg IV push b.i.d. Adding Entresto today Daily weights. Admission weight is 92.4 kg per bed scale Strict Intake and output. Villarreal catheter in place. Last 24 hours I: 800 ml, O: 4650 ml, net - 3850 ml Weight 92.5 kg Heart healthy diet with a fluid restriction of 1500 mils Compression stockings ordered Optimize medications Echo from 03-07 showed left ventricular hypertrophy with normal systolic function and grade 1 diastolic noncompliance, pulmonary hypertension with an estimated pulmonary artery pressure of 66, findings were similar to echo that was completed in August 2023. (2) Pneumonia: Code(s): J18.9 - Pneumonia, unspecified organism Status: Acute Assessment and Plan: Concerns for recurrent pneumonia with productive sputum, T-max 100.6? Patient has been started on HAP treatment with vancomycin, cefepime, azithromycin given her recent hospitalization. MRSA PCR was negative therefore vancomycin was discontinued. Low suspicion for pneumonia as she was just treated for pneumonia and discharge on 03/09. Continue with Rocephin for possible UTI. Procalcitonin 1.8-->1.5 Viral respiratory panel has been ordered and was negative Sputum culture, urine culture negative. Pneumococcal, mycoplasma IgM, Legionella pending Blood cultures pending Nebs p.r.n. incentive spirometry, pep therapy (3) Acute on chronic hypoxic respiratory failure: Code(s): J96.21 - Acute and chronic respiratory failure with hypoxia Status: Acute Assessment and Plan: Patient is on 2 L nasal cannula (4) Abnormal urinalysis: Code(s): R82.90 - Unspecified abnormal findings in urine Status: Acute Assessment and Plan: UA is mildly concerning for UTI with +2 leuks, RBC 3-5, WBC 11-20 patient reports urinary frequency urine culture negative Plan Feeding: Diabetic diet with a fluid restriction of 1500 mils Analgesia: Tylenol Thromboembolic prophylaxis: SCDs Lines: PIV placed via ultrasound Antibiotics: Rocephin, oral azithromycin Disposition: Patient presented to the emergency room with 8 lb weight gain, increased tremors, lethargy. She was admitted for a CHF exacerbation versus possible pneumonia. She had just been discharged on 03/09 for similar complaints. She is receiving antibiotic treatment for possible pneumonia and IV diuresis. Home medications will be optimized--adding Entresto. Anticipate patient returning back to previous living arrangements. Advance Care Plan I have confirmed that the patient's Advanced Care Plan is present, code status is documented, or surrogate decision maker is listed in patient medical record.: Yes Medication Reconciliation I have utilized all available resources to obtain, update and review the patients current medications (includes all prescriptions, OTC, herbals, cannabis, and nutritional supplements).: Yes Subjective Date/time seen: 03/18/24 08:00 Interval history: This is an 88-year-old female with a past medical history significant for congestive heart failure, COPD, atrial fibrillation who presents from her alf facility for concerns of generalized weakness, lethargy, cough, weight gain and extremity swelling. She was recently discharged from this facility on 03/09 after receiving treatment for CHF exacerbation with superimposed pneumonia. 03/17: Patient seen resting in bed in no acute distress. She is on her baseline 2 L nasal cannula. Asked her why she came hospital she states she does not know as she feels fine. She is alert and oriented x4. She states she does have a productive cough st
[2024-03-18 08:13] LABS: Glucose Point of Care 102 mg/dl (65-105)
[2024-03-18 08:31] LABS: Procalcitonin 1.5 ng/mL
[2024-03-18] MEDS: cefTRIAXone 2 GM/NS 100 ML 2 GM/100 ML BAG IVPB (09:12)
[2024-03-18] MEDS: FUROSEMIDE INJ 40 MG/4 ML VIAL IV PUSH ×2 (09:15→16:51)
[2024-03-18] MEDS: rOPINIRole HCL 1 MG TABLET 4 MG PO ×2 (09:17→21:10)
[2024-03-18] MEDS: GABAPENTIN 100 MG CAPSULE 200 MG PO ×2 (09:17→16:51)
[2024-03-18] MEDS: FERROUS SULFATE 325 MG TABLET DR BY MOUTH (09:18)
[2024-03-18] MEDS: ASPIRIN 325 MG TABLET PO (09:19)
[2024-03-18] MEDS: POTASSIUM CHLORIDE 20 MEQ ER TABLET PO (09:19)
[2024-03-18] MEDS: VENLAFAXINE HCL XR 75 MG CAP.ER.24H 225 MG PO (09:19)
[2024-03-18] MEDS: SPIRONOLACTONE 12.5 MG TABLET PO (09:19)
[2024-03-18] MEDS: EMPAGLIFLOZIN 10 MG TABLET PO (09:20)
[2024-03-18] MEDS: AZITHROMYCIN 250 MG TABLET 500 MG PO (10:14)
[2024-03-18] MEDS: SACUBITRIL/VALSARTAN 24-26 MG TABLET 1 TAB PO ×2 (12:44→21:11)
[2024-03-18 14:00] VITALS: BP 135/62; PULSE 60; RESP 18; TEMP 36.6; O2SAT 100
[2024-03-18 20:00] VITALS: PULSE 60; RESP 18; O2SAT 100
[2024-03-18 21:05] VITALS: BP 150/68; PULSE 62; RESP 12; TEMP 36.7; O2SAT 92
[2024-03-18] MEDS: GABAPENTIN 300 MG CAPSULE PO (21:10)
[2024-03-18] MEDS: MELATONIN 5 MG TABLET PO (21:11)
[2024-03-18] MEDS: HALOPERIDOL 1 MG TABLET PO (21:12)
[2024-03-18] MEDS: ATORVASTATIN 10 MG TABLET PO (21:12)
[2024-03-18] MEDS: TOLNAFTATE 1% POWDER 45 GM BTL 1 APPLIC TOPICAL (21:12)
[2024-03-19 05:29] VITALS: BP 153/75; PULSE 69; RESP 13; TEMP 36.5; O2SAT 97
[2024-03-19 06:27] LABS: Basophils Percent Auto 0.4 % (0.2-1.2); Eosinophils Absolute Auto 0.1 K/mm3 (0-0.3); Eosinophils Percent Auto 1.2 % (0-4.4); Hematocrit 36.2 % (37.0-47.0); Hemoglobin 11.1 g/dL (12.0-15.0); Immature Granulocyte Absolute 0.02 K/mm3 (0.00-0.031); Immature Granulocyte Percent A 0.4 % (0-0.5); Lymphocytes Absolute Auto 0.52 K/mm3 (0.9-3.2); Lymphocytes Percent Auto 10.6 % (18.3-44.2); Mean Corpuscular HGB Conc 30.7 g/dl (32-36); Mean Corpuscular Hemoglobin 30.4 pg (26-34); Mean Corpuscular Volume 99.2 fl (80-100); Mean Platelet Volume 9.9 fl (7.4-10.4); Monocytes Absolute Auto 0.7 K/mm3 (0.1-0.6); Monocytes Percent Auto 14.1 % (2.6-8.5); Neutrophils Absolute Auto 3.6 K/mm3 (1.3-6.7); Neutrophils Percent Auto 73.3 % (45.5-73.1); Platelet Count Result 181 k/mm3 (150-375); Red Blood Count 3.65 M/mm3 (4.2-5.4); Red Cell Distribution Width 16.5 % (11.5-14.5); White Blood Count 4.9 K/mm3 (4.5-10.0)
[2024-03-19 06:46] LABS: Alanine Aminotransferase 22 U/L (6-35); Albumin Level 3.8 g/dL (3.5-5.1); Alkaline Phosphatase 195 U/L (38-126); Aspartate Amino Transferase 30 U/L (14-36); Bilirubin,Total 0.7 mg/dL (0.2-1.3); Blood Urea Nitrogen 21 mg/dL (7-17); Calcium 8.7 mg/dL (8.4-10.2); Carbon Dioxide > 40 mmol/L (22-30); Chloride 90 mmol/L (98-107); Estimated CRCL calculation 50 ml/min; Estimated Glomerular Filt Rate > 60; Glucose 102 mg/dL (65-110); Potassium 3.7 mmol/L (3.4-5.0); Sodium 139 mmol/L (137-145)
[2024-03-19 08:00] VITALS: O2SAT 97
--- NOTE | 2024-03-19 08:28 | PM.IMPN ---
Progress Note: A&P Assessment and Plan (1) Acute exacerbation of CHF (congestive heart failure): Code(s): I50.9 - Heart failure, unspecified Status: Acute Assessment and Plan: Presumed CHF exacerbation with bilateral lower extremity pitting edema, pulmonary edema on imaging BNP elevated at 4480 pg/ml Lasix 40 mg IV push b.i.d. Adding Entresto today--increased Entresto dose Daily weights. Admission weight is 92.4 kg per bed scale Strict Intake and output. Villarreal catheter in place. Last 24 hours I: 800 ml, O: 4650 ml, net - 3850 ml Weight 92.5 kg Heart healthy diet with a fluid restriction of 1500 mils Compression stockings ordered Optimize medications Echo from 03-07 showed left ventricular hypertrophy with normal systolic function and grade 1 diastolic noncompliance, pulmonary hypertension with an estimated pulmonary artery pressure of 66, findings were similar to echo that was completed in August 2023. (2) Pneumonia: Code(s): J18.9 - Pneumonia, unspecified organism Status: Acute Assessment and Plan: Concerns for recurrent pneumonia with productive sputum, T-max 100.6? Patient has been started on HAP treatment with vancomycin, cefepime, azithromycin given her recent hospitalization. MRSA PCR was negative therefore vancomycin was discontinued. Low suspicion for pneumonia as she was just treated for pneumonia and discharge on 03/09. Continue with Rocephin for possible UTI. Procalcitonin 1.8-->1.5--> Viral respiratory panel has been ordered and was negative Sputum culture, urine culture negative. Pneumococcal, mycoplasma IgM, Legionella pending Blood cultures NGTD Nebs p.r.n. incentive spirometry, pep therapy (3) Acute on chronic hypoxic respiratory failure: Code(s): J96.21 - Acute and chronic respiratory failure with hypoxia Status: Acute Assessment and Plan: Patient is on 2 L nasal cannula (4) Abnormal urinalysis: Code(s): R82.90 - Unspecified abnormal findings in urine Status: Acute Assessment and Plan: UA is mildly concerning for UTI with +2 leuks, RBC 3-5, WBC 11-20 patient reports urinary frequency urine culture negative Urinary symptoms have resolved. She does have vaginal itching and erythema to her perineum. Will give a dose of fluconazole and nystatin powder. Plan Feeding: Diabetic diet with a fluid restriction of 1500 mils Analgesia: Tylenol Thromboembolic prophylaxis: SCDs Lines: PIV placed via ultrasound Antibiotics: Rocephin, oral azithromycin Disposition: Patient presented to the emergency room with 8 lb weight gain, increased tremors, lethargy. She was admitted for a CHF exacerbation versus possible pneumonia. She had just been discharged on 03/09 for similar complaints. She is receiving antibiotic treatment for possible pneumonia and IV diuresis. Home medications will be optimized--adding Entresto, increasing dose today. Anticipate patient returning back to previous living arrangements. Advance Care Plan I have confirmed that the patient's Advanced Care Plan is present, code status is documented, or surrogate decision maker is listed in patient medical record.: Yes Medication Reconciliation I have utilized all available resources to obtain, update and review the patients current medications (includes all prescriptions, OTC, herbals, cannabis, and nutritional supplements).: Yes Subjective Date/time seen: 03/19/24 08:28 Interval history: This is an 88-year-old female with a past medical history significant for congestive heart failure, COPD, atrial fibrillation who presents from her correction facility for concerns of generalized weakness, lethargy, cough, weight gain and extremity swelling. She was recently discharged from this facility on 03/09 after receiving treatment for CHF exacerbation with superimposed pneumonia. 03/17: Patient seen resting in bed in no acute distress. She is
[2024-03-19] MEDS: cefTRIAXone 2 GM/NS 100 ML 2 GM/100 ML BAG IVPB (08:55)
[2024-03-19] MEDS: FUROSEMIDE INJ 40 MG/4 ML VIAL IV PUSH ×2 (08:59→16:24)
[2024-03-19] MEDS: AZITHROMYCIN 250 MG TABLET 500 MG PO (08:59)
[2024-03-19] MEDS: SPIRONOLACTONE 12.5 MG TABLET PO (08:59)
[2024-03-19] MEDS: SACUBITRIL/VALSARTAN 24-26 MG TABLET 1 TAB PO (08:59)
[2024-03-19] MEDS: POTASSIUM CHLORIDE 20 MEQ ER TABLET PO (09:00)
[2024-03-19] MEDS: VENLAFAXINE HCL XR 75 MG CAP.ER.24H 225 MG PO (09:00)
[2024-03-19] MEDS: rOPINIRole HCL 1 MG TABLET 4 MG PO ×2 (09:00→20:43)
[2024-03-19] MEDS: TOLNAFTATE 1% POWDER 45 GM BTL 1 APPLIC TOPICAL ×2 (09:00→20:43)
[2024-03-19] MEDS: ASPIRIN 325 MG TABLET PO (09:00)
[2024-03-19] MEDS: FERROUS SULFATE 325 MG TABLET DR BY MOUTH (09:00)
[2024-03-19] MEDS: EMPAGLIFLOZIN 10 MG TABLET PO (09:00)
[2024-03-19] MEDS: ACETAMINOPHEN 325 MG TABLET 650 MG PO ×2 (09:03→20:43)
[2024-03-19] MEDS: GABAPENTIN 100 MG CAPSULE 200 MG PO ×2 (09:04→16:24)
[2024-03-19 13:57] VITALS: BP 124/57; PULSE 61; RESP 18; TEMP 36.1; O2SAT 91
[2024-03-19] MEDS: FLUCONAZOLE 150 MG TABLET PO (17:09)
[2024-03-19 20:00] VITALS: O2SAT 91
[2024-03-19] MEDS: MELATONIN 5 MG TABLET PO (20:43)
[2024-03-19] MEDS: SACUBITRIL/VALSARTAN 49-51 MG TABLET 1 TABLET PO (20:43)
[2024-03-19] MEDS: HALOPERIDOL 1 MG TABLET PO (20:43)
[2024-03-19] MEDS: GABAPENTIN 300 MG CAPSULE PO (20:43)
[2024-03-19] MEDS: ATORVASTATIN 10 MG TABLET PO (20:43)
[2024-03-19 22:00] VITALS: BP 116/57; PULSE 60; RESP 13; TEMP 36.4; O2SAT 96
[2024-03-20 05:29] VITALS: BP 140/61; PULSE 60; RESP 13; TEMP 36.5; O2SAT 99
[2024-03-20 06:23] LABS: Basophils Percent Auto 0.8 % (0.2-1.2); Eosinophils Absolute Auto 0.1 K/mm3 (0-0.3); Eosinophils Percent Auto 2.2 % (0-4.4); Hematocrit 36.6 % (37.0-47.0); Lymphocytes Absolute Auto 0.56 K/mm3 (0.9-3.2); Lymphocytes Percent Auto 15.4 % (18.3-44.2); Mean Corpuscular HGB Conc 30.1 g/dl (32-36); Mean Corpuscular Hemoglobin 29.7 pg (26-34); Mean Corpuscular Volume 98.9 fl (80-100); Mean Platelet Volume 9.7 fl (7.4-10.4); Monocytes Absolute Auto 0.7 K/mm3 (0.1-0.6); Monocytes Percent Auto 17.9 % (2.6-8.5); Neutrophils Absolute Auto 2.3 K/mm3 (1.3-6.7); Neutrophils Percent Auto 63.7 % (45.5-73.1); Platelet Count Result 201 k/mm3 (150-375); Red Cell Distribution Width 16.3 % (11.5-14.5); White Blood Count 3.6 K/mm3 (4.5-10.0)
[2024-03-20 06:38] LABS: Alanine Aminotransferase 18 U/L (6-35); Albumin Level 3.3 g/dL (3.5-5.1); Alkaline Phosphatase 165 U/L (38-126); Aspartate Amino Transferase 30 U/L (14-36); Bilirubin,Total 0.7 mg/dL (0.2-1.3); Blood Urea Nitrogen 20 mg/dL (7-17); Calcium 8.4 mg/dL (8.4-10.2); Carbon Dioxide > 40 mmol/L (22-30); Chloride 89 mmol/L (98-107); Estimated CRCL calculation 50 ml/min; Estimated Glomerular Filt Rate > 60; Glucose 84 mg/dL (65-110); Magnesium 1.9 mg/dL (1.6-2.3); Potassium 3.8 mmol/L (3.4-5.0); Sodium 139 mmol/L (137-145)
[2024-03-20 07:13] LABS: Procalcitonin 0.7 ng/mL
[2024-03-20 08:00] VITALS: O2SAT 100
[2024-03-20] MEDS: rOPINIRole HCL 1 MG TABLET 4 MG PO ×2 (09:04→20:30)
[2024-03-20] MEDS: AZITHROMYCIN 250 MG TABLET 500 MG PO (09:04)
[2024-03-20] MEDS: GABAPENTIN 100 MG CAPSULE 200 MG PO ×2 (09:04→17:50)
[2024-03-20] MEDS: VENLAFAXINE HCL XR 75 MG CAP.ER.24H 225 MG PO (09:04)
[2024-03-20] MEDS: cefTRIAXone 2 GM/NS 100 ML 2 GM/100 ML BAG IVPB (09:05)
[2024-03-20] MEDS: POTASSIUM CHLORIDE 20 MEQ ER TABLET PO (09:05)
[2024-03-20] MEDS: FERROUS SULFATE 325 MG TABLET DR BY MOUTH (09:05)
[2024-03-20] MEDS: TOLNAFTATE 1% POWDER 45 GM BTL 1 APPLIC TOPICAL ×2 (09:05→20:30)
[2024-03-20] MEDS: SACUBITRIL/VALSARTAN 49-51 MG TABLET 1 TABLET PO ×2 (09:05→20:30)
[2024-03-20] MEDS: ASPIRIN 325 MG TABLET PO (09:05)
[2024-03-20] MEDS: EMPAGLIFLOZIN 10 MG TABLET PO (09:05)
[2024-03-20] MEDS: FUROSEMIDE INJ 40 MG/4 ML VIAL IV PUSH (09:05)
[2024-03-20] MEDS: SPIRONOLACTONE 12.5 MG TABLET PO (09:19)
--- NOTE | 2024-03-20 12:58 | PM.IMPN ---
Progress Note: A&P Assessment and Plan (1) Acute exacerbation of CHF (congestive heart failure): Code(s): I50.9 - Heart failure, unspecified Status: Acute Assessment and Plan: Presumed CHF exacerbation with bilateral lower extremity pitting edema, pulmonary edema on imaging BNP elevated at 4480 pg/ml Lasix 40 mg IV push b.i.d. Entresto 49-51 mg tablet BID. Blood pressure better. 140/61 mm Hg Daily weights. Admission weight is 92.4 kg per bed scale Strict Intake and output. Villarreal catheter in place. Last 24 hours I: 1160 ml, O:3600 ml, net - 2440 ml; cumulative admission of net -10,620 ml Weight 92.5 kg on admission, weight today 90.5 kg. Concerned the bed weight is not accurate. Heart healthy diet with a fluid restriction of 1500 mils Compression stockings ordered Optimize medications Echo from 03-07 showed left ventricular hypertrophy with normal systolic function and grade 1 diastolic noncompliance, pulmonary hypertension with an estimated pulmonary artery pressure of 66, findings were similar to echo that was completed in August 2023. She does admit that the food where she lives is really good and they do not take into consideration dietary restrictions. Further educated on low sodium diet. (2) Pneumonia: Code(s): J18.9 - Pneumonia, unspecified organism Status: Acute Assessment and Plan: Concerns for recurrent pneumonia with productive sputum, T-max 100.6? Patient has been started on HAP treatment with vancomycin, cefepime, azithromycin given her recent hospitalization. MRSA PCR was negative therefore vancomycin was discontinued. Low suspicion for pneumonia as she was just treated for pneumonia and discharge on 03/09. Continue with Rocephin for possible UTI. Procalcitonin 1.8-->1.5-->0.7 Viral respiratory panel has been ordered and was negative Sputum culture, urine culture negative. Pneumococcal, mycoplasma IgM, Legionella pending Blood cultures NGTD Nebs p.r.n. incentive spirometry, pep therapy (3) Acute on chronic hypoxic respiratory failure: Code(s): J96.21 - Acute and chronic respiratory failure with hypoxia Status: Acute Assessment and Plan: Patient is on 2 L nasal cannula (4) Abnormal urinalysis: Code(s): R82.90 - Unspecified abnormal findings in urine Status: Acute Assessment and Plan: UA is mildly concerning for UTI with +2 leuks, RBC 3-5, WBC 11-20 patient reports urinary frequency urine culture negative Urinary symptoms have resolved. She does have vaginal itching and erythema to her perineum. Will give a dose of fluconazole and nystatin powder. Plan Feeding: Diabetic diet with a fluid restriction of 1500 mils Analgesia: Tylenol Thromboembolic prophylaxis: SCDs Lines: PIV placed via ultrasound Antibiotics: Rocephin, oral azithromycin Disposition: Patient presented to the emergency room with 8 lb weight gain, increased tremors, lethargy. She was admitted for a CHF exacerbation versus possible pneumonia. She had just been discharged on 03/09 for similar complaints. She is receiving antibiotic treatment for possible pneumonia and IV diuresis. Home medications will be optimized--adding Entresto, increasing dose today. Anticipate patient returning back to previous living arrangements. Advance Care Plan I have confirmed that the patient's Advanced Care Plan is present, code status is documented, or surrogate decision maker is listed in patient medical record.: Yes Medication Reconciliation I have utilized all available resources to obtain, update and review the patients current medications (includes all prescriptions, OTC, herbals, cannabis, and nutritional supplements).: Yes Subjective Date/time seen: 03/20/24 12:58 Interval history: This is an 88-year-old female with a past medical history significant for congestive heart failure, COPD, atrial fibrillation who presents from her assisted
[2024-03-20 14:00] VITALS: BP 110/68; PULSE 70; RESP 20; TEMP 36; O2SAT 100
[2024-03-20 19:53] VITALS: RESP 20; O2SAT 100
[2024-03-20] MEDS: GABAPENTIN 300 MG CAPSULE PO (20:29)
[2024-03-20] MEDS: ATORVASTATIN 10 MG TABLET PO (20:29)
[2024-03-20] MEDS: MELATONIN 5 MG TABLET PO (20:29)
[2024-03-20] MEDS: HALOPERIDOL 1 MG TABLET PO (20:29)
[2024-03-20] MEDS: HYDROcodone/acetaminophen (*CRX) 5-325 MG TABLET 1 TAB PO (20:30)
[2024-03-20 20:55] VITALS: BP 125/59; PULSE 59; RESP 16; TEMP 37; O2SAT 98
[2024-03-21] MEDS: HYDROcodone/acetaminophen (*CRX) 5-325 MG TABLET 1 TAB PO ×2 (00:38→05:03)
[2024-03-21 05:10] VITALS: BP 159/76; PULSE 60; RESP 18; TEMP 37.4; O2SAT 99
--- NOTE | 2024-03-21 07:25 | PM.DS ---
DS: Admitting Diagnosis Discharge Date 03/21 Admitting Diagnosis shortness of breath DS: Discharge Diagnosis Discharge Diagnosis (1) Acute exacerbation of CHF (congestive heart failure): Code(s): I50.9 - Heart failure, unspecified Status: Acute Assessment and Plan: Presumed CHF exacerbation with bilateral lower extremity pitting edema, pulmonary edema on imaging BNP elevated at 4480 pg/ml Lasix 40 mg IV push b.i.d. Entresto 49-51 mg tablet BID. Blood pressure better. 140/61 mm Hg Daily weights. Admission weight is 92.4 kg per bed scale Strict Intake and output. Villarreal catheter in place. Last 24 hours I: 1160 ml, O:3600 ml, net - 2440 ml; cumulative admission of net -10,620 ml Weight 92.5 kg on admission, weight today 90.5 kg. Concerned the bed weight is not accurate. Heart healthy diet with a fluid restriction of 1500 mils Compression stockings ordered Optimize medications Echo from 03-07 showed left ventricular hypertrophy with normal systolic function and grade 1 diastolic noncompliance, pulmonary hypertension with an estimated pulmonary artery pressure of 66, findings were similar to echo that was completed in August 2023. She does admit that the food where she lives is really good and they do not take into consideration dietary restrictions. Further educated on low sodium diet. (2) Pneumonia: Code(s): J18.9 - Pneumonia, unspecified organism Status: Acute Assessment and Plan: Concerns for recurrent pneumonia with productive sputum, T-max 100.6? Patient has been started on HAP treatment with vancomycin, cefepime, azithromycin given her recent hospitalization. MRSA PCR was negative therefore vancomycin was discontinued. Low suspicion for pneumonia as she was just treated for pneumonia and discharge on 03/09. Continue with Rocephin for possible UTI. Procalcitonin 1.8-->1.5-->0.7 Viral respiratory panel has been ordered and was negative Sputum culture, urine culture negative. Pneumococcal, mycoplasma IgM, Legionella pending Blood cultures NGTD Nebs p.r.n. incentive spirometry, pep therapy (3) Acute on chronic hypoxic respiratory failure: Code(s): J96.21 - Acute and chronic respiratory failure with hypoxia Status: Acute Assessment and Plan: Patient is on 2 L nasal cannula (4) Abnormal urinalysis: Code(s): R82.90 - Unspecified abnormal findings in urine Status: Acute Assessment and Plan: UA is mildly concerning for UTI with +2 leuks, RBC 3-5, WBC 11-20 patient reports urinary frequency urine culture negative Urinary symptoms have resolved. She does have vaginal itching and erythema to her perineum. Will give a dose of fluconazole and nystatin powder. Plan Feeding: Diabetic diet with a fluid restriction of 1500 mils Analgesia: Tylenol Thromboembolic prophylaxis: SCDs Lines: PIV placed via ultrasound Antibiotics: Rocephin, oral azithromycin Disposition: Patient presented to the emergency room with 8 lb weight gain, increased tremors, lethargy. She was admitted for a CHF exacerbation versus possible pneumonia. She had just been discharged on 03/09 for similar complaints. She is receiving antibiotic treatment for possible pneumonia and IV diuresis. Home medications will be optimized--adding Entresto, increasing dose today. Anticipate patient returning back to previous living arrangements. Advance Care Plan I have confirmed that the patient's Advanced Care Plan is present, code status is documented, or surrogate decision maker is listed in patient medical record.: Yes Medication Reconciliation I have utilized all available resources to obtain, update and review the patients current medications (includes all prescriptions, OTC, herbals, cannabis, and nutritional supplements).: Yes DS: Summary Hospital Course Reason for hospitalization: CHF exacerbation, UTI Hospital Course: This is an 88-year-old female wi
[2024-03-21] MEDS: VENLAFAXINE HCL XR 75 MG CAP.ER.24H 225 MG PO (09:26)
[2024-03-21] MEDS: GABAPENTIN 100 MG CAPSULE 200 MG PO (09:26)
[2024-03-21] MEDS: ASPIRIN 325 MG TABLET PO (09:26)
[2024-03-21] MEDS: SPIRONOLACTONE 12.5 MG TABLET PO (09:27)
[2024-03-21] MEDS: AZITHROMYCIN 250 MG TABLET 500 MG PO (09:27)
[2024-03-21] MEDS: FERROUS SULFATE 325 MG TABLET DR BY MOUTH (09:27)
[2024-03-21] MEDS: rOPINIRole HCL 1 MG TABLET 4 MG PO (09:27)
[2024-03-21] MEDS: TOLNAFTATE 1% POWDER 45 GM BTL 1 APPLIC TOPICAL (09:27)
[2024-03-21] MEDS: SACUBITRIL/VALSARTAN 49-51 MG TABLET 1 TABLET PO (09:27)
[2024-03-21] MEDS: EMPAGLIFLOZIN 10 MG TABLET PO (09:27)
[2024-03-21] MEDS: POTASSIUM CHLORIDE 20 MEQ ER TABLET PO (09:27)
[2024-03-21] MEDS: cefTRIAXone 2 GM/NS 100 ML 2 GM/100 ML BAG IVPB (09:27)
[2024-03-21 19:33] LABS: Pneumococcal Antigen Urine NOT DETECTED
[2024-03-22 19:03] LABS: Mycoplasma IgM Antibody Titer 108 U/mL
[2024-03-24 02:37] LABS: Legionella pneumophila Ag Ur NOT DETECTED
== END 2024-03-21 14:31 | DRG 291 ==
LOC: ANHED 21:17 → ANH3MEDSUR 22:48
PROVIDERS: Emergency Medicine; Admitting Provider Internal Medicine; Emergency Provider Student in an Organized Health Care Education/Training Program; PCP Family Medicine; Visit Provider Nurse Practitioner Acute Care
DX: I13.0 Hypertensive heart and chronic kidney disease with heart failure and stage 1 through stage 4 chronic kidney disease, or unspecified chronic kidney disease (principal); I50.33 Acute on chronic diastolic (congestive) heart failure; J18.9 Pneumonia, unspecified organism; J96.21 Acute and chronic respiratory failure with hypoxia; I48.20 Chronic atrial fibrillation, unspecified; N18.30 Chronic kidney disease, stage 3 unspecified; E78.5 Hyperlipidemia, unspecified; B37.31 Acute candidiasis of vulva and vagina; E03.9 Hypothyroidism, unspecified; I73.9 Peripheral vascular disease, unspecified; D63.1 Anemia in chronic kidney disease; M47.816 Spondylosis without myelopathy or radiculopathy, lumbar region; Z96.649 Presence of unspecified artificial hip joint; Z96.659 Presence of unspecified artificial knee joint; Z86.718 Personal history of other venous thrombosis and embolism; Z90.49 Acquired absence of other specified parts of digestive tract; Z87.891 Personal history of nicotine dependence; Z79.82 Long term (current) use of aspirin
CPT/HCPCS: 36415; 70450; 71045; 71046; 80053; 81001; 82565; 82803; 82948; 83735; 83880; 84145; 85025; 85055; 86738; 87040; 87086; 87449; 87637; 87641; 87899; 93005; 94667; 96365; 96375; 97110; 97116; 97161; 97165; 97530; 99285; A9270; J0456; J0692; J0696; J1940; J3370; J7050

== ENCOUNTER 2024-03-25 23:07 | Inpatient (IN) | payer MEDICARE, SELFPAY ==
--- NOTE | ~2024-03-25 | XR_ITS ---
XR chest 1V portable Ordering provider: Davonte Mims MD History: 88 years Female with . CHF . Comparison: March 21, 2024 FINDINGS: MEDIASTINUM: The cardiac silhouette is slightly enlarged. Congestive pablo. LUNGS: No , effusions or pneumothorax. Opacification in the upper and lower lobes with interstitial t hickening. OTHER: No free air under the diaphragm. Degenerative changes of the spine. IMPRESSION: Bilateral pneumonia. Underlying pulmonary edema. Reviewed, dictated and finalized at location A.
--- NOTE | ~2024-03-25 | US_ITS ---
EXAMINATION: US renal BI DATE: 03/28/2024 14:09 INDICATION: Acute kidney injury. TECHNIQUE: Multiple ultrasound grayscale images of the kidneys were obtained. COMPARISON: Ultrasound 09/27/2023 FINDINGS: The right kidney measures 8.7 x 5.0 x 4.5 cm. The left kidney measures 8.4 x 4.0 x 4.5 cm. The kidney s demonstrate normal parenchymal echogenicity. There is no hydronephrosis. The bladder is normal. IMPRESSION: 1. Mild atrophy of the kidneys. No hydronephrosis. Reviewed, dictated and finalized at location A.
[2024-03-25 23:16] VITALS: PULSE 88; RESP 20; TEMP 36.8; O2SAT 92
[2024-03-26] VITALS (22 sets, daily range): BP systolic 92–109; BP diastolic 41–93; PULSE 60–78; RESP 16–22; TEMP 35.9–36.6; O2SAT 92–100; BMI 31.1; BMI 30.7
[2024-03-26 00:08] LABS: Basophils Percent Auto 0.6 % (0.2-1.2); Eosinophils Absolute Auto 0.1 K/mm3 (0-0.3); Eosinophils Percent Auto 3.7 % (0-4.4); Hematocrit 34.1 % (37.0-47.0); Hemoglobin 10.2 g/dL (12.0-15.0); Immature Granulocyte Absolute 0.01 K/mm3 (0.00-0.031); Immature Granulocyte Percent A 0.3 % (0-0.5); Lymphocytes Absolute Auto 0.76 K/mm3 (0.9-3.2); Lymphocytes Percent Auto 21.5 % (18.3-44.2); Mean Corpuscular HGB Conc 29.9 g/dl (32-36); Mean Corpuscular Hemoglobin 30.2 pg (26-34); Mean Corpuscular Volume 100.9 fl (80-100); Mean Platelet Volume 9.7 fl (7.4-10.4); Monocytes Absolute Auto 0.7 K/mm3 (0.1-0.6); Monocytes Percent Auto 18.4 % (2.6-8.5); Neutrophils Percent Auto 55.5 % (45.5-73.1); Platelet Count Result 166 k/mm3 (150-375); Red Blood Count 3.38 M/mm3 (4.2-5.4); Red Cell Distribution Width 17.1 % (11.5-14.5); White Blood Count 3.5 K/mm3 (4.5-10.0)
--- NOTE | 2024-03-26 00:32 | ED.GENADULT ---
HPI - General Adult General Chief complaint: Recheck/Abnormal Lab/Rx Stated complaint: abd labs Time Seen by Provider: 03/25/24 23:33 History of Present Illness HPI narrative: patient is a 88-year-old female presents emergency department chief complaint of abnormal labs. Patient was discharged hospital on Thursday after being admitted for congestive heart failure exacerbation. The patient had labs checked at the nursing facility and was found to have a creatinine of 1.9 and a potassium of 5.5. Currently the patient is states that her back is bothering her laying on the stretcher Related Data Home Medications Medication Instructions Recorded Confirmed aspirin 325 mg tablet 325 mg PO DAILY 08/06/19 03/17/24 gabapentin 100 mg capsule 200 mg PO BID 08/13/21 03/17/24 ropinirole 4 mg tablet 4 mg PO Q12H 04/28/23 03/17/24 ascorbic acid (vitamin C) 500 mg 500 mg PO DAILY 08/04/23 03/17/24 tablet multivitamin,er-ljwe-ucojlxkl 1 tablet PO DAILY 08/04/23 03/16/24 venlafaxine 150 mg 150 mg PO DAILY 08/04/23 03/17/24 capsule,extended release 24 hr albuterol sulfate 90 mcg/actuation 2 puff inhalation Q4H PRN 09/20/23 03/17/24 aerosol inhaler (Ventolin HFA) Shortness Of Breath Or Wheezing bisacodyl 10 mg rectal suppository 10 mg RECTAL DAILY PRN Constipation 09/20/23 03/17/24 ferrous sulfate 325 mg (65 mg 325 mg PO DAILY 09/20/23 03/17/24 iron) tablet polyvinyl alcohol-povidone (PF) 2 drp EACH EYE QID PRN Dry Eyes 09/20/23 03/17/24 1.4 %-0.6 % eye drops in a dropperette (Refresh Classic (PF)) potassium chloride 20 mEq 20 meq PO DAILY 09/20/23 03/17/24 tablet,extended release haloperidol 1 mg tablet 1 mg PO HS 03/06/24 03/17/24 lifitegrast 5 % eye drops in a 1 drp EACH EYE BID 03/06/24 03/17/24 dropperette (Xiidra) acetaminophen 325 mg tablet 650 mg PO Q6H PRN Pain 03/07/24 03/17/24 cyanocobalamin (vitamin B-12) 500 500 mcg PO DAILY 03/07/24 03/17/24 mcg tablet gabapentin 100 mg capsule 300 mg PO HS 03/07/24 03/17/24 magnesium hydroxide 400 mg/5 mL 30 ml PO HS PRN Constipation 03/07/24 03/17/24 oral suspension (Milk of Magnesia) melatonin 5 mg tablet 5 mg PO HS 03/07/24 03/17/24 polyethylene glycol 3350 17 gram 17 g PO DAILY PRN Constipation 03/07/24 03/17/24 oral powder packet (Miralax) venlafaxine 75 mg capsule,extended 75 mg PO DAILY 03/07/24 03/17/24 release 24 hr hydrocodone 10 mg-acetaminophen 1 tablet PO BID 03/17/24 03/17/24 325 mg tablet hydrocodone 10 mg-acetaminophen 1 tablet PO Q6H PRN Pain 03/17/24 03/17/24 325 mg tablet Allergies Allergy/AdvReac Type Severity Reaction Status Date / Time Penicillins Allergy Severe Hives Verified 03/26/24 00:06 Sulfa (Sulfonamide Allergy Intermediate hives Verified 03/26/24 00:06 Antibiotics) sulfamethoxazole Allergy Hives Verified 03/26/24 00:06 [From Bactrim] trimethoprim [From Bactrim] Allergy Hives Verified 03/26/24 00:06 morphine AdvReac Intermediate Hallucinati Verified 03/26/24 00:06 ng bumetanide AdvReac Nausea Verified 03/26/24 00:06 Review of Systems Review of Systems: A 10 system review of systems was completed on the patient and is negative except for what is stated in the HPI. Nursing and ancillary documentation was reviewed. [facility] Past Medical History Medical History Afib patient had wactchman placed for a. fib approximately 2 yrs ago CHF exacerbation Choking Chronic a-fib Chronic pain disorder CKD (chronic kidney disease), stage III Essential (primary) hypertension Fatigue Fracture of knee prosthesis History of blood transfusion History of brain tumor History of DVT (deep vein thrombosis) HLD (hyperlipidemia) Hoarseness of voice HTN (hypertension) Hypertension Hypothyroidism (acquired) Hypothyroidism, unspecified Lumbar spondylosis Major depressive disorder, single episode, unspecified Minor head injury without loss of consciousness Ksenia
[2024-03-26 01:52] LABS: Anion Gap 3 mmol/L (4-12); Blood Urea Nitrogen 47 mg/dL (7-17); Calcium 8.5 mg/dL (8.4-10.2); Carbon Dioxide 39 mmol/L (22-30); Chloride 95 mmol/L (98-107); Estimated CRCL calculation 23 ml/min; Estimated Glomerular Filt Rate 28; Glucose 92 mg/dL (65-110); Potassium 5.8 mmol/L (3.4-5.0); Sodium 137 mmol/L (137-145)
--- NOTE | 2024-03-26 02:15 | ECG_ITS ---
Test Date: 2024-03-26 02:35:36 Measurements Intervals [place] Rate: 59 P: 0 [place]: 0 QRS: -18 QRSD: 181 T: 89 QT: 501 QTc: 497 Interpretive Statements ATRIAL FIBRILLATION ELECTRONIC VENTRICULAR PACEMAKER ABNORMAL RHYTHM ECG Compared to ECG 03/16/2024 17:15:01 NO DIFFERENCE, MORE PACED COMPLEXES Electronically Signed On 03-26-2024 08:25:25 CDT by Dm Harrington M.D.
[2024-03-26] MEDS: DEXTROSE 50% 25 GM/50 ML SYRINGE IV PUSH (02:28)
[2024-03-26] MEDS: SODIUM ZIRCONIUM CYCLOSILICATE 10 GM POWD.PACK PO ×2 (02:28→16:58)
[2024-03-26] MEDS: INSULIN HUMAN REGULAR (*BKC) 100 UNITS/ML 10 UNITS IV PUSH (02:28)
[2024-03-26] MEDS: SODIUM CHLORIDE 0.9% IV 1,000 ML 500 ML IV CONT (02:28)
[2024-03-26] MEDS: SODIUM BICARBONATE 8.4% 50 MEQ/50 ML SYRINGE IV PUSH (02:29)
[2024-03-26] MEDS: CALCIUM GLUCONATE 1,000 MG/10 ML VIAL 1000 MG IV PUSH ×2 (02:29→17:00)
--- NOTE | 2024-03-26 03:51 | PC.NURSE ---
eduarda schneider updated on pt admit and status
[2024-03-26] MEDS: DEXTROSE 50% 25 GM/50 ML SYRINGE (04:35)
[2024-03-26] MEDS: DEXTROSE 5% 1,000 ML 1,000 ML 100 ML (04:40)
[2024-03-26 05:03] LABS: Glucose Point of Care 96 mg/dl (65-105)
[2024-03-26 05:03] LABS: Glucose Point of Care 31 mg/dl (65-105)
[2024-03-26 05:03] LABS: Glucose Point of Care 34 mg/dl (65-105)
[2024-03-26 05:03] LABS: Glucose Point of Care 118 mg/dl (65-105)
--- NOTE | 2024-03-26 05:07 | ADMGEN ---
This patient, Zohreh Oakes, was admitted to 3 [facility] Surg Room 324-02. Patient/family oriented to hospital policies and general routines including ID bracelet, bed and alarms, visiting hours, pain management, procedures, bathroom and other care routines, personal items, smoking policy, room service/diet, and visiting hours. Information on how to activate the Rapid Response Team has been discussed. Patient/Family are encouraged to report perceived risks to care and to ask questions if they do not understand what they are told or what they should do.
[2024-03-26 05:11] LABS: Glucose Point of Care 87 mg/dl (65-105)
--- NOTE | 2024-03-26 05:12 | PM.IMHP ---
H&P: HPI History of Present Illness Date/Time: 03/26/24 05:12 Chief Complaint: High potassium Narrative: 88-year-old female with a past medical history of moderate to severe dementia with behavioral disturbances, chronic hypoxic hypercapnic respiratory failure, chronic kidney disease, paroxysmal atrial fibrillation status post Watchman, peripheral vascular disease, restless leg syndrome, spinal stenosis, chronic pain and chronic kidney disease stage 3 who presented to the ER from [facility] via EMS due to hyperkalemia. The patient has been hospitalized 03/16/2024 through 03/21/2024 due to exacerbation of hypoxic respiratory failure, CHF and COPD exacerbation. Patient already been on Lasix, potassium and spironolactone. On discharge from the hospital she was started on Entresto. Follow-up labs demonstrated acute on chronic kidney injury with hyperkalemia the patient was sent to the ER for evaluation and treatment. In the ER patient received insulin, dextrose, calcium and sodium bicarb. Repeat Accu-Chek was performed when the patient was found unresponsive on the medical floor patient's glucose was 31. The patient received an amp of D50 and was started I D5 infusion. Patient continued to have episodes of hypoglycemia in fluids have now been switched to D10. Repeat electrolyte panel demonstrated normalization potassium but patient's creatinine is still elevated above baseline. The patient is only oriented to self and is yelling at staff and is uncooperative. She was eating ice cream at the time of my evaluation. A pure wick catheter had been placed and the patient had not yet had any urine output. Review of Systems Review of Systems: ROS unobtainable: Yes unobtainable due to medical condition (Dementia) [facility] Past Medical History Medical History (Updated 03/26/24 @ 07:55 by Emilee Wright DO) Afib patient had wactchman placed for a. fib approximately 2018 Chronic a-fib Chronic pain disorder CKD (chronic kidney disease), stage III Dementia Essential (primary) hypertension Fracture of knee prosthesis Heart failure with preserved ejection fraction Echo 10/2022 demonstrated grade 2 diastolic function EF 65-70% severe left atrial enlargement mild right atrial enlargement severe pulmonary hypertension RVSP 60 with moderate tricuspid regurgitation History of blood transfusion History of brain tumor History of DVT (deep vein thrombosis) HLD (hyperlipidemia) Hypertension Hypothyroidism (acquired) Lumbar spondylosis Major depressive disorder, single episode, unspecified Numbness and tingling in left hand Obesity Other fracture of right femur, initial encounter for closed fracture PAD (peripheral artery disease) Severe pulmonary hypertension Subdural hematoma (~2018) Surgical History Surgical History (Updated 03/26/24 @ 07:34 by Emilee Wright DO) Brain tumor (benign) excised H/O thyroidectomy History of appendectomy History of back surgery X3 History of hip replacement Bilateral History of knee replacement History of repair of ruptured globe History of vertebroplasty Hx of right inguinal hernia repair 06/11/22 Hx of tonsillectomy Presence of Watchman left atrial appendage closure device S/P insertion of IVC (inferior vena caval) filter Status post open reduction with internal fixation of fracture Right hip Family History Family History Sibling Family history of multiple sclerosis, Onset Age: 43 Father Acute myocardial infarction Mother , age 60 Heart disease Acute myocardial infarction Social History Social History (Updated 03/26/24 @ 07:44 by Emilee Wright DO) Social History: Patient is . She is residing at [facility] Code status: DNR/DNI with state form indicating comfort based care only Smoking packs per day: 0.1 Smoking cigarettes per day: 2.0 Years smoked: 15 Smoking pack-years:
[2024-03-26 05:33] LABS: Glucose Point of Care 77 mg/dl (65-105)
[2024-03-26] MEDS: DEXTROSE 10% 1,000 ML 75 ML IV CONT (05:38)
[2024-03-26 05:45] LABS: Anion Gap 6 mmol/L (4-12); Blood Urea Nitrogen 47 mg/dL (7-17); Calcium 8.5 mg/dL (8.4-10.2); Carbon Dioxide 34 mmol/L (22-30); Chloride 97 mmol/L (98-107); Estimated CRCL calculation 23 ml/min; Estimated Glomerular Filt Rate 28; Glucose 67 mg/dL (65-110); Potassium 4.8 mmol/L (3.4-5.0); Sodium 137 mmol/L (137-145)
[2024-03-26 06:07] LABS: Glucose Point of Care 74 mg/dl (65-105)
[2024-03-26 06:53] LABS: Glucose Point of Care 102 mg/dl (65-105)
[2024-03-26] MEDS: rOPINIRole HCL 1 MG TABLET 4 MG PO ×2 (08:53→20:16)
[2024-03-26] MEDS: CYANOCOBALAMIN 500 MCG TABLET PO (08:53)
[2024-03-26] MEDS: VENLAFAXINE HCL XR 75 MG CAP.ER.24H 225 MG PO (08:53)
[2024-03-26] MEDS: GABAPENTIN 100 MG CAPSULE 200 MG PO ×2 (08:54→17:00)
[2024-03-26] MEDS: FERROUS SULFATE 325 MG TABLET DR BY MOUTH (08:54)
[2024-03-26] MEDS: FUROSEMIDE 40 MG TABLET PO (08:54)
[2024-03-26] MEDS: SACUBITRIL/VALSARTAN 49-51 MG TABLET 1 TABLET PO ×2 (08:54→20:16)
[2024-03-26] MEDS: ASPIRIN 325 MG TABLET PO (08:54)
[2024-03-26] MEDS: ASCORBIC ACID 500 MG TABLET PO (08:54)
[2024-03-26] MEDS: HYDROcodone/acetaminophen (*CRX) 10-325 MG TABLET 1 TAB PO ×2 (08:56→17:01)
[2024-03-26] MEDS: TOLNAFTATE 1% POWDER 45 GM BTL 1 APPLIC TOPICAL ×2 (08:57→20:15)
[2024-03-26 10:04] LABS: SARS-CoV-2 RNA PCR Negative (Negative)
[2024-03-26 12:06] LABS: Glucose Point of Care 176 mg/dl (65-105)
--- NOTE | 2024-03-26 14:02 | PCOTNOTE ---
Attempted OT evaluation; pt refused to get out of bed at this time. Will attempt again tomorrow as able.
--- NOTE | 2024-03-26 15:00 | PCPTNOTE ---
Attempted to see for PT evaluation, pt was very drowsy and declined participation. Will continue to follow.
[2024-03-26 15:28] LABS: Glucose Point of Care 124 mg/dl (65-105)
[2024-03-26 16:19] LABS: Blood Urea Nitrogen 50 mg/dL (7-17); Calcium 8.4 mg/dL (8.4-10.2); Carbon Dioxide > 40 mmol/L (22-30); Chloride 95 mmol/L (98-107); Estimated CRCL calculation 25 ml/min; Estimated Glomerular Filt Rate 31; Glucose 120 mg/dL (65-110); Magnesium 2.3 mg/dL (1.6-2.3); Potassium 5.6 mmol/L (3.4-5.0); Sodium 137 mmol/L (137-145)
--- NOTE | 2024-03-26 16:42 | WPDPN ---
Progress Note: A&P Assessment and Plan (1) Acute hyperkalemia: Code(s): E87.5 - Hyperkalemia Status: Acute (2) Acute kidney injury: Code(s): N17.9 - Acute kidney failure, unspecified Status: Acute (3) Hypoglycemia: Code(s): E16.2 - Hypoglycemia, unspecified Status: Acute (4) Dementia: Qualifiers: Dementia type: unspecified type Dementia severity: severe Dementia behavioral or psychological symptom: with agitation Qualified Code(s): F03.C11 - Unspecified dementia, severe, with agitation Code(s): F03.90 - Unspecified dementia, unspecified severity, without behavioral disturbance, psychotic disturbance, mood disturbance, and anxiety Status: Acute Plan 03/26/2024 interval history: patient presented with hyperkalemia and was treated with insulin, dextrose, calcium gluconate and sodium bicarbonate which did bring her potassium down however she became hypoglycemic and was treated with D10 IVF and blood sugars are trending up, will stop D10 IVF, repeat potassium is still high 5.6 will give one time lokelma, and calcium gluconate. will hold Entresto until 03/28 and plan. patient is sleepy but awaken when spoken, will monitor, will have PT/OT evaluate patient will benefit going to rehab for debility. patient has a sitter in the room. Subjective Date/time seen: 03/26/24 16:42 Interval history: High potassium H&Z-[id number]-[id number]: 88-year-old female with a past medical history of moderate to severe dementia with behavioral disturbances, chronic hypoxic hypercapnic respiratory failure, chronic kidney disease, paroxysmal atrial fibrillation status post Watchman, peripheral vascular disease, restless leg syndrome, spinal stenosis, chronic pain and chronic kidney disease stage 3 who presented to the ER from [facility] via EMS due to hyperkalemia. The patient has been hospitalized 03/16/2024 through 03/21/2024 due to exacerbation of hypoxic respiratory failure, CHF and COPD exacerbation. Patient already been on Lasix, potassium and spironolactone. On discharge from the hospital she was started on Entresto. Follow-up labs demonstrated acute on chronic kidney injury with hyperkalemia the patient was sent to the ER for evaluation and treatment. In the ER patient received insulin, dextrose, calcium and sodium bicarb. Repeat Accu-Chek was performed when the patient was found unresponsive on the medical floor patient's glucose was 31. The patient received an amp of D50 and was started I D5 infusion. Patient continued to have episodes of hypoglycemia in fluids have now been switched to D10. Repeat electrolyte panel demonstrated normalization potassium but patient's creatinine is still elevated above baseline. The patient is only oriented to self and is yelling at staff and is uncooperative. She was eating ice cream at the time of my evaluation. A pure wick catheter had been placed and the patient had not yet had any urine output. 03/26/2024 interval history: patient presented with hyperkalemia and was treated with insulin, dextrose, calcium gluconate and sodium bicarbonate which did bring her potassium down however she became hypoglycemic and was treated with D10 IVF and blood sugars are trending up, will stop D10 IVF, repeat potassium is still high 5.6 will give one time lokelma, and calcium gluconate. will hold Entresto until 03/28 and plan. patient is sleepy but awaken when spoken, will monitor, will have PT/OT evaluate patient will benefit going to rehab for debility. patient has a sitter in the room. Review of Systems Review of Systems: ROS unobtainable: Yes unobtainable due to medical condition (Dementia) Exam Narrative: Patient is comfortable, NAD HEENT: eyes are clear and none icteric LUNGS:CTA HEART: RR S1S2 ABD: BS+, Soft and nontender Lower extremities: no edema SKIN: nonjaundiced Neuro: grossly intact. Objective Data Vital Signs Vital Signs: V
[2024-03-26 18:27] LABS: Glucose Point of Care 129 mg/dl (65-105)
[2024-03-26 20:10] LABS: Add Urine Microscopic? YES; Appearance Urine Cloudy (Clear); Bacteria Urine None Seen /hpf; Bilirubin Urine Negative (Negative); Blood Urine Negative (Negative); Color Urine Yellow (Yellow); Glucose Urine UA Trace mg/dL (Negative); Ketones Urine Negative (Negative); Leukocyte Esterase Ur 1+ LEU/UL (Negative); Need Manual Microscopic Reviewed; Nitrate Urine Negative (Negative); Protein Urine Trace mg/dL (Negative); RBC Urine 21-50 /hpf (0-2); Specific Grav Ur 1.015 (1.001-1.035); Squamous Epithelial Cell Urine Many /hpf (Few); Urobilinogen Urine 0.2 mg/dL (<2.0)
[2024-03-26] MEDS: MELATONIN 5 MG TABLET PO (20:16)
[2024-03-26] MEDS: ATORVASTATIN 10 MG TABLET PO (20:16)
[2024-03-26] MEDS: GABAPENTIN 300 MG CAPSULE PO (20:16)
[2024-03-26] MEDS: HALOPERIDOL 1 MG TABLET PO (20:16)
[2024-03-26] MEDS: levoFLOXacin 500 MG/D5W 100 ML 500 MG/100 ML BAG 100 MG IVPB (20:23)
[2024-03-26 23:26] LABS: Glucose Point of Care 114 mg/dl (65-105)
[2024-03-27] VITALS (11 sets, daily range): BP systolic 94–152; BP diastolic 49–96; PULSE 60–75; RESP 20; TEMP 36.3–36.9; O2SAT 93–96
[2024-03-27 05:56] LABS: Basophils Percent Auto 0.5 % (0.2-1.2); Eosinophils Absolute Auto 0.1 K/mm3 (0-0.3); Eosinophils Percent Auto 2.4 % (0-4.4); Hematocrit 32.2 % (37.0-47.0); Hemoglobin 9.3 g/dL (12.0-15.0); Immature Granulocyte Absolute 0.01 K/mm3 (0.00-0.031); Immature Granulocyte Percent A 0.3 % (0-0.5); Lymphocytes Absolute Auto 0.61 K/mm3 (0.9-3.2); Mean Corpuscular HGB Conc 28.9 g/dl (32-36); Mean Corpuscular Hemoglobin 29.5 pg (26-34); Mean Corpuscular Volume 102.2 fl (80-100); Mean Platelet Volume 9.7 fl (7.4-10.4); Monocytes Absolute Auto 0.6 K/mm3 (0.1-0.6); Monocytes Percent Auto 16.5 % (2.6-8.5); Neutrophils Absolute Auto 2.5 K/mm3 (1.3-6.7); Neutrophils Percent Auto 64.3 % (45.5-73.1); Platelet Count Result 143 k/mm3 (150-375); Red Blood Count 3.15 M/mm3 (4.2-5.4); Red Cell Distribution Width 16.8 % (11.5-14.5); White Blood Count 3.8 K/mm3 (4.5-10.0)
[2024-03-27 06:05] LABS: Glucose Point of Care 92 mg/dl (65-105)
[2024-03-27 06:10] LABS: Anion Gap 4 mmol/L (4-12); Blood Urea Nitrogen 50 mg/dL (7-17); Calcium 8.4 mg/dL (8.4-10.2); Carbon Dioxide 37 mmol/L (22-30); Chloride 95 mmol/L (98-107); Estimated CRCL calculation 19 ml/min; Estimated Glomerular Filt Rate 22; Glucose 82 mg/dL (65-110); Magnesium 2.3 mg/dL (1.6-2.3); Potassium 5.8 mmol/L (3.4-5.0); Sodium 136 mmol/L (137-145)
[2024-03-27 07:08] LABS: Anisocytosis 1+; Hypochromasia 1+; Platelet Estimate Slightly Decreased (Adequate); Schistocytes None Seen
[2024-03-27] MEDS: ASPIRIN 325 MG TABLET PO (08:13)
[2024-03-27] MEDS: VENLAFAXINE HCL XR 75 MG CAP.ER.24H 225 MG PO (08:13)
[2024-03-27] MEDS: FERROUS SULFATE 325 MG TABLET DR BY MOUTH (08:14)
[2024-03-27] MEDS: ASCORBIC ACID 500 MG TABLET PO (08:14)
[2024-03-27] MEDS: FUROSEMIDE 40 MG TABLET PO (08:14)
[2024-03-27] MEDS: CYANOCOBALAMIN 500 MCG TABLET PO (08:14)
[2024-03-27] MEDS: rOPINIRole HCL 1 MG TABLET 4 MG PO ×2 (08:14→21:13)
[2024-03-27] MEDS: HYDROcodone/acetaminophen (*CRX) 10-325 MG TABLET 1 TAB PO ×2 (08:14→17:06)
[2024-03-27] MEDS: SACUBITRIL/VALSARTAN 49-51 MG TABLET 1 TABLET PO ×2 (08:14→21:13)
[2024-03-27] MEDS: GABAPENTIN 100 MG CAPSULE 200 MG PO ×2 (08:14→17:06)
[2024-03-27] MEDS: TOLNAFTATE 1% POWDER 45 GM BTL 1 APPLIC TOPICAL ×2 (08:15→21:13)
--- NOTE | 2024-03-27 08:52 | PCPTNOTE ---
Attempted to see for PT evaluation, pt unable to follow directions for safe participation. Will continue to follow.
[2024-03-27] MEDS: CALCIUM GLUCONATE 1,000 MG/10 ML VIAL 1000 MG IV PUSH (09:02)
[2024-03-27] MEDS: FUROSEMIDE INJ 40 MG/4 ML VIAL IV PUSH (09:19)
[2024-03-27] MEDS: SODIUM ZIRCONIUM CYCLOSILICATE 10 GM POWD.PACK PO ×2 (10:14→19:10)
[2024-03-27 11:41] LABS: Glucose Point of Care 103 mg/dl (65-105)
[2024-03-27 15:14] LABS: Anion Gap 8 mmol/L (4-12); Blood Urea Nitrogen 53 mg/dL (7-17); Calcium 8.3 mg/dL (8.4-10.2); Carbon Dioxide 33 mmol/L (22-30); Chloride 94 mmol/L (98-107); Estimated CRCL calculation 21 ml/min; Estimated Glomerular Filt Rate 25; Glucose 100 mg/dL (65-110); Magnesium 2.3 mg/dL (1.6-2.3); Potassium 5.4 mmol/L (3.4-5.0); Sodium 135 mmol/L (137-145)
--- NOTE | 2024-03-27 17:35 | WPDPN ---
Progress Note: A&P Assessment and Plan (1) Acute hyperkalemia: Code(s): E87.5 - Hyperkalemia Status: Acute (2) Acute kidney injury: Code(s): N17.9 - Acute kidney failure, unspecified Status: Acute (3) Hypoglycemia: Code(s): E16.2 - Hypoglycemia, unspecified Status: Acute (4) Dementia: Qualifiers: Dementia type: unspecified type Dementia severity: severe Dementia behavioral or psychological symptom: with agitation Qualified Code(s): F03.C11 - Unspecified dementia, severe, with agitation Code(s): F03.90 - Unspecified dementia, unspecified severity, without behavioral disturbance, psychotic disturbance, mood disturbance, and anxiety Status: Acute Plan 03/27/2024 interval history: patient presented with hyperkalemia and was treated with insulin, dextrose, calcium gluconate and sodium bicarbonate which did bring her potassium down however she became hypoglycemic and was treated with D10 IVF and blood sugars are trending up, and on 03/26 stopped D10 IVF, repeat potassium was still high 5.6 gave one time lokelma, and calcium gluconate. placed hold on Entresto until 03/28 and plan. today again patient potassium is 5.8, gave lokelma, calcium gluconage and switch po lasix to IV and repeated potassium at 3pm her potassium came down to 5.4 Scr down to 1.9 patient is sleepy but awaken when spoken, will monitor, will have PT/OT evaluate patient will benefit going to rehab for debility. I spoke with patient son explained that patient's kidney are failing, will monitor. Subjective Date/time seen: 03/27/24 17:35 Interval history: High potassium H&G-ORS-[id number]: 88-year-old female with a past medical history of moderate to severe dementia with behavioral disturbances, chronic hypoxic hypercapnic respiratory failure, chronic kidney disease, paroxysmal atrial fibrillation status post Watchman, peripheral vascular disease, restless leg syndrome, spinal stenosis, chronic pain and chronic kidney disease stage 3 who presented to the ER from [facility] via EMS due to hyperkalemia. The patient has been hospitalized 03/16/2024 through 03/21/2024 due to exacerbation of hypoxic respiratory failure, CHF and COPD exacerbation. Patient already been on Lasix, potassium and spironolactone. On discharge from the hospital she was started on Entresto. Follow-up labs demonstrated acute on chronic kidney injury with hyperkalemia the patient was sent to the ER for evaluation and treatment. In the ER patient received insulin, dextrose, calcium and sodium bicarb. Repeat Accu-Chek was performed when the patient was found unresponsive on the medical floor patient's glucose was 31. The patient received an amp of D50 and was started I D5 infusion. Patient continued to have episodes of hypoglycemia in fluids have now been switched to D10. Repeat electrolyte panel demonstrated normalization potassium but patient's creatinine is still elevated above baseline. The patient is only oriented to self and is yelling at staff and is uncooperative. She was eating ice cream at the time of my evaluation. A pure wick catheter had been placed and the patient had not yet had any urine output. 03/27/2024 interval history: patient presented with hyperkalemia and was treated with insulin, dextrose, calcium gluconate and sodium bicarbonate which did bring her potassium down however she became hypoglycemic and was treated with D10 IVF and blood sugars are trending up, and on 03/26 stopped D10 IVF, repeat potassium was still high 5.6 gave one time lokelma, and calcium gluconate. placed hold on Entresto until 03/28 and plan. today again patient potassium is 5.8, gave lokelma, calcium gluconage and switch po lasix to IV and repeated potassium at 3pm her potassium came down to 5.4 Scr down to 1.9 patient is sleepy but awaken when spoken, will monitor, will have PT/OT evaluate patient will benefit going to rehab for debility. I spo
[2024-03-27 17:49] LABS: Glucose Point of Care 144 mg/dl (65-105)
[2024-03-27] MEDS: GABAPENTIN 300 MG CAPSULE PO (21:13)
[2024-03-27] MEDS: HALOPERIDOL 1 MG TABLET PO (21:13)
[2024-03-27] MEDS: ATORVASTATIN 10 MG TABLET PO (21:13)
[2024-03-27] MEDS: levoFLOXacin 250 MG/D5W 50 ML 250 MG/50 ML BAG 50 MG IVPB (21:14)
[2024-03-27 23:13] LABS: Glucose Point of Care 92 mg/dl (65-105)
[2024-03-28] VITALS (10 sets, daily range): BP systolic 96–134; BP diastolic 46–65; PULSE 60–132; RESP 14–26; TEMP 35.7–36.3; O2SAT 95–100
[2024-03-28 05:41] LABS: Glucose Point of Care 64 mg/dl (65-105)
[2024-03-28] MEDS: DEXTROSE 50% 25 GM/50 ML SYRINGE IV PUSH ×2 (05:43→06:08)
[2024-03-28 05:56] LABS: Hematocrit 35.7 % (37.0-47.0); Hemoglobin 10.7 g/dL (12.0-15.0); Mean Corpuscular Hemoglobin 30.4 pg (26-34); Mean Corpuscular Volume 101.4 fl (80-100); Mean Platelet Volume 9.7 fl (7.4-10.4); Platelet Count Result 140 k/mm3 (150-375); Red Blood Count 3.52 M/mm3 (4.2-5.4); Red Cell Distribution Width 16.9 % (11.5-14.5); White Blood Count 2.8 K/mm3 (4.5-10.0)
[2024-03-28 06:05] LABS: Potassium 4.9 mmol/L (3.4-5.0)
[2024-03-28 06:13] LABS: Anion Gap 5 mmol/L (4-12); Blood Urea Nitrogen 52 mg/dL (7-17); Calcium 8.7 mg/dL (8.4-10.2); Carbon Dioxide 39 mmol/L (22-30); Chloride 91 mmol/L (98-107); Estimated CRCL calculation 19 ml/min; Estimated Glomerular Filt Rate 22; Glucose 138 mg/dL (65-110); Magnesium 2.3 mg/dL (1.6-2.3); Sodium 135 mmol/L (137-145)
[2024-03-28 06:28] LABS: Glucose Point of Care 107 mg/dl (65-105)
[2024-03-28 06:28] LABS: Glucose Point of Care 69 mg/dl (65-105)
[2024-03-28 06:54] LABS: Glucose Point of Care 100 mg/dl (65-105)
[2024-03-28] MEDS: ASPIRIN 325 MG TABLET PO (08:40)
[2024-03-28] MEDS: FUROSEMIDE INJ 40 MG/4 ML VIAL IV PUSH (08:40)
[2024-03-28] MEDS: SACUBITRIL/VALSARTAN 49-51 MG TABLET 1 TABLET PO (08:40)
[2024-03-28] MEDS: ASCORBIC ACID 500 MG TABLET PO (08:40)
[2024-03-28] MEDS: rOPINIRole HCL 1 MG TABLET 4 MG PO (08:40)
[2024-03-28] MEDS: FERROUS SULFATE 325 MG TABLET DR BY MOUTH (08:40)
[2024-03-28] MEDS: VENLAFAXINE HCL XR 75 MG CAP.ER.24H 225 MG PO (08:40)
[2024-03-28] MEDS: GABAPENTIN 100 MG CAPSULE 200 MG PO (08:40)
[2024-03-28] MEDS: CYANOCOBALAMIN 500 MCG TABLET PO (08:41)
[2024-03-28] MEDS: HYDROcodone/acetaminophen (*CRX) 10-325 MG TABLET 1 TAB PO ×3 (08:41→23:13)
[2024-03-28] MEDS: TOLNAFTATE 1% POWDER 45 GM BTL 1 APPLIC TOPICAL ×2 (08:59→20:46)
[2024-03-28 09:54] LABS: Glucose Point of Care 69 mg/dl (65-105)
[2024-03-28 10:52] LABS: Glucose Point of Care 101 mg/dl (65-105)
[2024-03-28] MEDS: SODIUM ZIRCONIUM CYCLOSILICATE 10 GM POWD.PACK PO (11:01)
--- NOTE | 2024-03-28 11:01 | PM.CNNEP ---
Assessment and Plan Assessment and plan (1) Acute kidney injury: Code(s): N17.9 - Acute kidney failure, unspecified Status: Acute Assessment and Plan: as noted on admission no real significant improvement since hospitalized suspect multifactorial: medications (Entresto, lasix, spironolactone) overdiuresis(?) relative hypotension possible underlying CKD (?) check urine studies, CPK, and renal ultrasound hold Entresto follow trend of repeat labs and UOP (2) Acute hyperkalemia: Code(s): E87.5 - Hyperkalemia Status: Acute Assessment and Plan: better at this time likely secondary to CHA/ARF in conjunction with medications (K+ supplements + Entresto + spironolactone) s/p medical management potassium supplements and spironolactone on hold will hold Entresto as well follow repeat K+ levels (3) CHF (congestive heart failure): Qualifiers: Heart failure chronicity: acute on chronic Heart failure type: unspecified Qualified Code(s): I50.9 - Heart failure, unspecified Code(s): I50.9 - Heart failure, unspecified Status: Chronic Assessment and Plan: appears relatively compensated follow volume status closely (4) Dementia: Qualifiers: Dementia type: unspecified type Dementia severity: severe Dementia behavioral or psychological symptom: with agitation Qualified Code(s): F03.C11 - Unspecified dementia, severe, with agitation Code(s): F03.90 - Unspecified dementia, unspecified severity, without behavioral disturbance, psychotic disturbance, mood disturbance, and anxiety Status: Chronic Assessment and Plan: stable I will continue follow the patient with you while she remains hospitalized make further recommendations as deemed necessary. Thank you for allowing me to participate in the care of this patient. History of Present Illness Reason for Consult Consult date: 03/28/24 Reason for consult: acute renal failure Chief Complaint Chief complaint: Hyperkalemia, Acute kidney injury History of Present Illness Narrative: Most of the history that I have obtained is from review of the electronic medical record as well as discussion with the physician/nurses involved in the patient's care as she appears to have some degree of confusion complicated by her dementia at the time of my visit. The patient is an 88-year-old female with a past medical history as outlined below who presented to [facility] Emergency room from her nursing facility via EMS for abnormal labs, specifically, hyperkalemia. It should be noted the patient was recently hospitalized here at [facility] in late February of 2024 for exacerbation of her chronic hypoxic respiratory failure due to her CHF/COPD exacerbation. She clinically improved with IV diuresis and supportive therapy and on discharge, she was initiated on and trazodone based on evidence of her congestive heart failure during that hospital stay. It would appear that she was continued on her potassium and spironolactone on discharge as well. Outpatient labs at her nursing facility demonstrated acute kidney injury/ acute renal failure in association with hyperkalemia. Given this change in her baseline laboratory findings, she was transported to the ER for further assessment. Workup and evaluation in emergency room demonstrated the patient to be relatively hypotensive but in no apparent distress. Repeat labs confirmed her acute kidney injury and associated hyperkalemia. She received medical management for the elevated potassium level in the form of IV insulin, IV dextrose, IV calcium gluconate, and IV bicarb in it. Given the significant change in her kidney function, she was subsequently admitted to the hospital for further evaluation and therapy. Since her admission, she initially had some issues / problems with hypoglycemia requiring dextrose IV fluids but this has apparently
[2024-03-28 11:36] LABS: Glucose Point of Care 95 mg/dl (65-105)
--- NOTE | 2024-03-28 11:36 | PCPTNOTE ---
On 03/28/24, the student, [Larissa Laura], provided care and completed [facility] documentation on this patient. I have reviewed the student's documentation and agree with the findings.
[2024-03-28 13:28] LABS: Creatinine Urine 21.9 mg/dL; Total Protein Urine Random 12 mg/dL; Ur Ttl Prot Creatinine Ratio 0.55 mg/mg (0-0.20); Urea Random Urine 191 MG/DL
[2024-03-28 13:29] LABS: Sodium Urine Random 84 meq/L
[2024-03-28 14:14] LABS: Glucose Point of Care 116 mg/dl (65-105)
[2024-03-28 14:21] LABS: Eosinophil Urine None Seen % (None Seen); Urine Eos QC NAO
[2024-03-28 16:19] LABS: Glucose Point of Care 77 mg/dl (65-105)
[2024-03-28 17:49] LABS: Glucose Point of Care 102 mg/dl (65-105)
[2024-03-28 20:17] LABS: Glucose Point of Care 108 mg/dl (65-105)
[2024-03-28] MEDS: levoFLOXacin 250 MG/D5W 50 ML 250 MG/50 ML BAG 50 MG IVPB (20:37)
--- NOTE | 2024-03-28 20:44 | PM.IMPN ---
Progress Note: A&P Assessment and Plan (1) Acute hyperkalemia: Code(s): E87.5 - Hyperkalemia Status: Acute (2) Acute kidney injury: Code(s): N17.9 - Acute kidney failure, unspecified Status: Acute (3) Hypoglycemia: Code(s): E16.2 - Hypoglycemia, unspecified Status: Acute (4) Dementia: Qualifiers: Dementia behavioral or psychological symptom: with agitation Dementia severity: severe Dementia type: unspecified type Qualified Code(s): F03.C11 - Unspecified dementia, severe, with agitation Code(s): F03.90 - Unspecified dementia, unspecified severity, without behavioral disturbance, psychotic disturbance, mood disturbance, and anxiety Status: Acute Plan Acute kidney injury: Do believe due to the multifactorial medication vs over diuresis vs exacerbation of CHF. Hyperkalemia resolved today hyperkalemia resolved today 4.9. The creatinine 2.1 which has increased from yesterday 1.9. GFR remains low 22. Nephrology is consulted and following recs. CHF: Patient was recently started on Entresto. Patient is also taking spironolactone and potassium supplement which was held due to the concern of hyperkalemia on the current admission. Patient Entresto was also on hold. The optimization of the CHF was not able to achieve due to the concerns of hyperkalemia. The patient also developed CHA during the course of hospitalization for which Nephrology is consulted. Patient continued receiving Lasix. The previous echocardiogram was done on August 2023 which shows left ventricular systolic dysfunction with ejection fraction of 65-70%. Cardiology was consulted and would appreciate recs. Subjective Date/time seen: 03/28/24 20:44 Interval history: High potassium H&O-HDC-Ehzbuxzbf: 88-year-old female with a past medical history of moderate to severe dementia with behavioral disturbances, chronic hypoxic hypercapnic respiratory failure, chronic kidney disease, paroxysmal atrial fibrillation status post Watchman, peripheral vascular disease, restless leg syndrome, spinal stenosis, chronic pain and chronic kidney disease stage 3 who presented to the ER from [facility] via EMS due to hyperkalemia. The patient has been hospitalized 03/16/2024 through 03/21/2024 due to exacerbation of hypoxic respiratory failure, CHF and COPD exacerbation. Patient already been on Lasix, potassium and spironolactone. On discharge from the hospital she was started on Entresto. Follow-up labs demonstrated acute on chronic kidney injury with hyperkalemia the patient was sent to the ER for evaluation and treatment. In the ER patient received insulin, dextrose, calcium and sodium bicarb. Repeat Accu-Chek was performed when the patient was found unresponsive on the medical floor patient's glucose was 31. The patient received an amp of D50 and was started I D5 infusion. Patient continued to have episodes of hypoglycemia in fluids have now been switched to D10. Repeat electrolyte panel demonstrated normalization potassium but patient's creatinine is still elevated above baseline. The patient is only oriented to self and is yelling at staff and is uncooperative. She was eating ice cream at the time of my evaluation. A pure wick catheter had been placed and the patient had not yet had any urine output. 03/28/2024 interval history: Patient hyperkalemia has been resolved. Discussed the plan with the family today. The patient has worsening renal function along with the exacerbation of CHF. Today we consulted Cardiology for further recommendation and also we are following nephrology recs. Review of Systems Review of Systems: ROS unobtainable: Yes unobtainable due to medical condition (Dementia) Exam Narrative: Patient is comfortable, NAD HEENT: eyes are clear and none icteric LUNGS:CTA HEART: RR S1S2 ABD: BS+, Soft and nontender Lower extremities: no edema SKIN: nonjaundiced Neuro: g
[2024-03-29] VITALS (12 sets, daily range): BP systolic 72–107; BP diastolic 42–60; PULSE 60–105; RESP 16–20; TEMP 36.1–36.8; O2SAT 89–100
[2024-03-29 05:13] LABS: Glucose Point of Care 78 mg/dl (65-105)
[2024-03-29 06:25] LABS: Hematocrit 34.9 % (37.0-47.0); Hemoglobin 10.5 g/dL (12.0-15.0); Immature Platelet Fraction Pct 2.6 % (0.9-11.2); Mean Corpuscular HGB Conc 30.1 g/dl (32-36); Mean Corpuscular Hemoglobin 30.3 pg (26-34); Mean Corpuscular Volume 100.9 fl (80-100); Mean Platelet Volume 9.4 fl (7.4-10.4); Platelet Count Result 149 k/mm3 (150-375); Red Blood Count 3.46 M/mm3 (4.2-5.4); Red Cell Distribution Width 16.5 % (11.5-14.5); White Blood Count 2.4 K/mm3 (4.5-10.0)
[2024-03-29 06:45] LABS: Blood Urea Nitrogen 50 mg/dL (7-17); Calcium 8.6 mg/dL (8.4-10.2); Carbon Dioxide > 40 mmol/L (22-30); Chloride 93 mmol/L (98-107); Estimated CRCL calculation 29 ml/min; Estimated Glomerular Filt Rate 36; Glucose 80 mg/dL (65-110); Magnesium 2.4 mg/dL (1.6-2.3); Potassium 4.7 mmol/L (3.4-5.0); Sodium 137 mmol/L (137-145)
[2024-03-29 06:47] LABS: Creatine Kinase 38 U/L (30-135)
[2024-03-29 08:05] LABS: Free T4 Free Thyroxine Reflex 0.95 ng/dL (0.78-2.19)
--- NOTE | 2024-03-29 08:22 | PM.CNCAR ---
Assessment and Plan Assessment and plan (1) Acute hyperkalemia: Code(s): E87.5 - Hyperkalemia Status: Acute Assessment and Plan: Improved with holding Entresto, spironolactone, and KCL. Will resume Entresto at lower dose of 24-26mg b.i.d. Discontinue spironolactone Discontinue KCL (2) Acute kidney injury: Code(s): N17.9 - Acute kidney failure, unspecified Status: Acute Assessment and Plan: Multifactorial but suspect primarily related to medications. Improving. (3) CHF exacerbation: Code(s): I50.9 - Heart failure, unspecified Status: Acute Assessment and Plan: Chronic diastolic heart failure. Perhaps mildly decompensated at present. Difficult management because of hyperkalemia and acute kidney injury. Resuming Entresto at lower dose Resume jardiance Strict intake and output Daily weights Low Na diet (4) Afib: Qualifiers: Atrial fibrillation type: paroxysmal Qualified Code(s): I48.0 - Paroxysmal atrial fibrillation Code(s): I48.91 - Unspecified atrial fibrillation Status: Acute Assessment and Plan: Controlled. S/p leadleass pacemaker and LAAO. Not on a/c Plan Recommendations and plan discussed with Hospitalist. History of Present Illness History of Present Illness Consult date/time: 03/29/24 08:22 Requesting physician: Rush Brown MD Consult reason: congestive heart failure Reason For Visit: Hyperkalemia, Acute kidney injury Narrative: Zohreh Oakes is an 88 year old female with history of persistent atrial fibrillation with slow ventricular response status post leadless pacemaker ([employer]) placement in June of 2023 of [place], percutaneous left atrial appendage occlusion, and heart failure with preserved ejection fraction. If she is hospitalized now because of hyperkalemia according to the medical record, though patient states she is here because of double pneumonia. Cardiology has been consulted to see her because of congestive heart failure and request for our advice regarding her medical therapy for HFpEF. Review of Systems Review of Systems: ROS unobtainable: Yes unobtainable due to mental status PMFSH Past Medical History Medical History Afib patient had wactchman placed for a. fib approximately 2018 Chronic a-fib Chronic pain disorder CKD (chronic kidney disease), stage III Dementia Essential (primary) hypertension Fracture of knee prosthesis Heart failure with preserved ejection fraction Echo 10/2022 demonstrated grade 2 diastolic function EF 65-70% severe left atrial enlargement mild right atrial enlargement severe pulmonary hypertension RVSP 60 with moderate tricuspid regurgitation History of blood transfusion History of brain tumor History of DVT (deep vein thrombosis) HLD (hyperlipidemia) Hypertension Hypothyroidism (acquired) Lumbar spondylosis Major depressive disorder, single episode, unspecified Numbness and tingling in left hand Obesity Other fracture of right femur, initial encounter for closed fracture PAD (peripheral artery disease) Severe pulmonary hypertension Subdural hematoma (~2017) Surgical History Surgical History Brain tumor (benign) excised H/O thyroidectomy History of appendectomy History of back surgery X3 History of hip replacement Bilateral History of knee replacement History of repair of ruptured globe History of vertebroplasty Hx of right inguinal hernia repair 06/11/22 Hx of tonsillectomy Presence of Watchman left atrial appendage closure device S/P insertion of IVC (inferior vena caval) filter Status post open reduction with internal fixation of fracture Right hip Family History Family History Sibling Family history of multiple sclerosis, Onset Age: 43 Father Ac
[2024-03-29] MEDS: CYANOCOBALAMIN 500 MCG TABLET PO (08:53)
[2024-03-29] MEDS: ASCORBIC ACID 500 MG TABLET PO (08:53)
[2024-03-29] MEDS: FERROUS SULFATE 325 MG TABLET DR BY MOUTH (08:53)
[2024-03-29] MEDS: VENLAFAXINE HCL XR 75 MG CAP.ER.24H 225 MG PO (08:53)
[2024-03-29] MEDS: GABAPENTIN 100 MG CAPSULE 200 MG PO ×2 (08:53→17:17)
[2024-03-29] MEDS: HYDROcodone/acetaminophen (*CRX) 10-325 MG TABLET 1 TAB PO (08:53)
[2024-03-29] MEDS: rOPINIRole HCL 1 MG TABLET 4 MG PO (08:53)
[2024-03-29] MEDS: ASPIRIN 325 MG TABLET PO (08:53)
[2024-03-29] MEDS: TOLNAFTATE 1% POWDER 45 GM BTL 1 APPLIC TOPICAL ×2 (08:54→21:56)
[2024-03-29 08:56] LABS: Total Triiodothyronine (T3) 0.88 NG/ML (0.97-1.69)
--- NOTE | 2024-03-29 10:41 | PM.IMPN ---
Progress Note: A&P Assessment and Plan (1) Acute hyperkalemia: Code(s): E87.5 - Hyperkalemia Status: Acute (2) Acute kidney injury: Code(s): N17.9 - Acute kidney failure, unspecified Status: Acute (3) Hypoglycemia: Code(s): E16.2 - Hypoglycemia, unspecified Status: Acute (4) Dementia: Qualifiers: Dementia type: unspecified type Dementia severity: severe Dementia behavioral or psychological symptom: with agitation Qualified Code(s): F03.C11 - Unspecified dementia, severe, with agitation Code(s): F03.90 - Unspecified dementia, unspecified severity, without behavioral disturbance, psychotic disturbance, mood disturbance, and anxiety Status: Acute Plan Acute kidney injury: Do believe due to the multifactorial medication vs over diuresis vs exacerbation of CHF. Hyperkalemia resolved today hyperkalemia resolved today 4.9. The creatinine 2.1 which has increased from yesterday 1.9. GFR remains low 22. Nephrology is consulted and following recs. 03/29/2024: Patient current kidney function has been improved from 2.1 to 1.40. GFR is also increased from 20 to 36. Continue monitor her kidney function. CHF: Patient was recently started on Entresto. Patient is also taking spironolactone and potassium supplement which was held due to the concern of hyperkalemia on the current admission. Patient Entresto was also on hold. The optimization of the CHF was not able to achieve due to the concerns of hyperkalemia. The patient also developed CHA during the course of hospitalization for which Nephrology is consulted. Patient continued receiving Lasix. The previous echocardiogram was done on August 2023 which shows left ventricular systolic dysfunction with ejection fraction of 65-70%. Cardiology was consulted and would appreciate recs. 03/29/2024: Discussed the case with the Cardiology. Cardiology resumed Entresto at lower dose and resume the Jardiance. Cardiology recommends no need of spironolactone and potassium supplement. The Lasix has been converted from IV to p.o.. We will continue monitoring her renal function tomorrow. Subjective Date/time seen: 03/29/24 10:41 Interval history: Patient was with a physical therapist when I visited the room. Patient is is able to ambulate with the help of PT. patient was more oriented when compared to yesterday. Review of Systems Review of Systems: ROS unobtainable: Yes unobtainable due to medical condition (Dementia) Exam Narrative: Patient is comfortable, NAD HEENT: eyes are clear and none icteric LUNGS:CTA HEART: RR S1S2 ABD: BS+, Soft and nontender Lower extremities: no edema SKIN: nonjaundiced Neuro: grossly intact. Const: Other: No acute distress, sitting up in bed head of bed at almost 90?, appears stated age HENMT: Other: Oral exam limited due to lack of cooperation, head is normocephalic atraumatic, left eye is held close with history of prior left eye blindness and enucleation, protuberant right eye Eyes: Other: Please see above Neck: Other: No JVD, loss of cervical lordosis Resp: Other: Decreased breath sounds at the bases, no increased work of breathing Cardio: Other: Regular rate, regular rhythm, 2+ left radial pulse, palpable pedal pulses GI: Other: Soft, Distended, nontender, positive bowel sounds : Other: Pure wick catheter in place Back/Spine/Pelvis: Other: Thoracic kyphosis Skin: Other: Mild pallor, non jaundice Neuro: Other: Alert oriented to self, chronic blindness left eye, moves bilateral upper extremities equally, speech is clear but slow Extrem: Other: No clubbing, cyanosis or edema, postoperative changes noted to bilateral knees Psych: Other: Irritable, uncooperative, argumentative Objective Data Vital Signs Vital Signs: Vital Signs - 24 hr 03/28/24 13:56 03/28/24
[2024-03-29] MEDS: FUROSEMIDE 40 MG TABLET PO (10:52)
[2024-03-29] MEDS: SACUBITRIL/VALSARTAN 24-26 MG TABLET 1 TAB PO (10:52)
--- NOTE | 2024-03-29 11:32 | PM.PNNEP ---
Progress Note: A&P Assessment and Plan (1) Acute kidney injury: Code(s): N17.9 - Acute kidney failure, unspecified Status: Acute Assessment and Plan: as noted on admission slow improvement noted suspect multifactorial: medications (Entresto, lasix, spironolactone) overdiuresis(?) relative hypotension possible underlying CKD (?) evaluation to date noted: renal ultrasound with bilateral atrophy urine electrolytes non-prerenal mild proteinuria urine eosinophils negative CPK normal Entresto resumed at lower dose follow trend of repeat labs and UOP (2) Acute hyperkalemia: Code(s): E87.5 - Hyperkalemia Status: Acute Assessment and Plan: better at this time likely secondary to CHA/ARF in conjunction with medications (K+ supplements + Entresto + spironolactone) s/p medical management potassium supplements and spironolactone on hold Entresto resumed at lower dose follow repeat K+ levels (3) CHF (congestive heart failure): Qualifiers: Heart failure chronicity: acute on chronic Heart failure type: unspecified Qualified Code(s): I50.9 - Heart failure, unspecified Code(s): I50.9 - Heart failure, unspecified Status: Chronic Assessment and Plan: appears relatively compensated follow volume status closely (4) Dementia: Qualifiers: Dementia type: unspecified type Dementia severity: severe Dementia behavioral or psychological symptom: with agitation Qualified Code(s): F03.C11 - Unspecified dementia, severe, with agitation Code(s): F03.90 - Unspecified dementia, unspecified severity, without behavioral disturbance, psychotic disturbance, mood disturbance, and anxiety Status: Chronic Assessment and Plan: stable Will continue to follow. Subjective Date/time seen: 03/29/24 11:32 Interval history: Follow-up for acute kidney injury/acute renal failure. Mentation seems to be doing better at the the time of my visit; renal function/creatinine seems to be doing better as well with better urine output (although she is on diuretics); potassium remains stable as well; no other acute issues/events overnight or earlier this morning. Exam Narrative: General: elderly female in NAD Heart: normal S1 and S2; no rub Lungs: clear anteriorly Abdomen: soft, nontender, nondistended, positive bowel sounds Extremities: no cyanosis or clubbing; no edema Skin: warm and intact Objective Data Vital Signs Vital Signs: Vital Signs Temp Pulse Resp BP Pulse Ox O2 Del Method O2 Flow Rate 03/29/24 11:00 60 03/29/24 08:00 63 03/29/24 08:50 93 Nasal Cannula 3 03/29/24 05:34 96.9 F L 105 H 16 107/54 L 89 L 03/29/24 04:00 60 03/29/24 00:00 63 03/28/24 20:00 80 03/28/24 20:19 96.7 F L 132 H 14 134/65 100 Intake/Output Intake/Output: Intake & Output 03/26/24 03/27/24 03/28/24 03/29/24 23:59 23:59 23:59 23:59 Intake Total 1560 1010 1188 360 Output Total 450 113 899 9759 Balance 1110 860 465 -640 Meds/Results Medications: Active Medications Generic Name Dose Route Start Last Admin Trade Name Freq PRN Reason Stop Dose Admin Acetaminophen 650 mg 03/26/24 07:39 03/29/24 17:17 Acetaminophen 325 Mg Tablet PO 650 mg Q6H PRN Administration Pain 1-3 or fever Hydrocodone Bitart/Acetaminophen 1 tab 03/26/24 07:39 03/28/24 23:13 Hydrocodone/Acetaminophen (*Crx) 10-325 Mg Tablet PO 1 tab Q6H PRN Administration Pain 7-10 Hydrocodone Bitart/Acetaminophen 1 tab 03/26/24 09:00 03/29/24 16:34 Hydrocodone/Acetaminophen (*Crx) 10-325 Mg Tablet PO Not Given BID DARIEN Albuterol 2 puff 03/26/24 07:39 Albuterol Sulfate (*Sp) Aerosol 1 Puff INHALATION Q4HRT PRN Shortness Of Breath/Wheezing Artificial Tears 2 drop 03/26/24 07:52 Artificial Tears Ophth Soln 15 Ml Bottle
--- NOTE | 2024-03-29 11:32 | P.PNNP_ITS ---
Progress Note: A&P Assessment and Plan (1) Acute kidney injury: Code(s): N17.9 - Acute kidney failure, unspecified Status: Acute Assessment and Plan: * as noted on admission * slow improvement noted * suspect multifactorial: * medications (Entresto, lasix, spironolactone) * overdiuresis(?) * relative hypotension * possible underlying CKD (?) * evaluation to date noted: * renal ultrasound with bilateral atrophy * urine electrolytes non-prerenal * mild proteinuria * urine eosinophils negative * CPK normal * Entresto resumed at lower dose * follow trend of repeat labs and UOP (2) Acute hyperkalemia: Code(s): E87.5 - Hyperkalemia Status: Acute Assessment and Plan: * better at this time * likely secondary to CHA/ARF in conjunction with medications (K+ supplements + Entresto + spironolactone) * s/p medical management * potassium supplements and spironolactone on hold * Entresto resumed at lower dose * follow repeat K+ levels (3) CHF (congestive heart failure): Qualifiers: Heart failure chronicity: acute on chronic Heart failure type: unspecified Qualified Code(s): I50.9 - Heart failure, unspecified Code(s): I50.9 - Heart failure, unspecified Status: Chronic Assessment and Plan: * appears relatively compensated * follow volume status closely (4) Dementia: Qualifiers: Dementia type: unspecified type Dementia severity: severe Dementia behavioral or psychological symptom: with agitation Qualified Code(s): F03.C11 - Unspecified dementia, severe, with agitation Code(s): F03.90 - Unspecified dementia, unspecified severity, without behavioral dis turbance, psychotic disturbance, mood disturbance, and anxiety Status: Chronic Assessment and Plan: * stable Will continue to follow. Subjective Date/time seen: 03/29/24 11:32 Interval history: Follow-up for acute kidney injury/acute renal failure. Mentation seems to be doing better at the the time of my visit; renal function/creatinine seems to be doing better as well with better urine output (although she is on diuretics); potassium remains stable as well; no other acute issues/events overnight or earlier this morning. Exam Narrative: General: elderly female in NAD Heart: normal S1 and S2; no rub Lungs: clear anteriorly Abdomen: soft, nontender, nondistended, positive bowel sounds Extremities: no cyanosis or clubbing; no edema Skin: warm and intact Objective Data Vital Signs Vital Signs: Vital Signs Temp Pulse Resp BP Pulse Ox O2 Del Method O2 Flow Rate 03/29/24 11:00 60 03/29/24 08:00 63 03/29/24 08:50 93 Nasal Cannula 3 03/29/24 05:34 96.9 F L 105 H 16 107/54 L 89 L 03/29/24 04:00 60 03/29/24 00:00 63 03/28/24 20:00 80 03/28/24 20:19 96.7 F L 132 H 14 134/65 100 Intake/Output Intake/Output: Intake & Output 03/26/24 03/27/24 03/28/24 03/29/24 23:59 23:59 23:59 23:59 Intake Total 1560 1010 1188 360 Output Total 450 560 568 9057 Balance 1110 860 788 640 Meds/Results Medications: Active Medications Gen
--- NOTE | 2024-03-29 13:32 | PCOTNOTE ---
Attempted to see Patient at this time. Patient very agitated, having increased confusion and, refused to participate in any activity. Patient seems angry, people are lying to her and insisted I leave her room or she will call security.
[2024-03-29] MEDS: ACETAMINOPHEN 325 MG TABLET 650 MG PO (17:17)
[2024-03-29 18:44] LABS: Glucose Point of Care 54 mg/dl (65-105)
[2024-03-29 19:24] LABS: Glucose Point of Care 109 mg/dl (65-105)
[2024-03-29] MEDS: SODIUM CHLORIDE 0.9% IV 250 ML 999 ML IV CONT ×2 (21:52→22:45)
[2024-03-29] MEDS: ATORVASTATIN 10 MG TABLET PO (21:54)
[2024-03-30] VITALS (10 sets, daily range): BP systolic 98–124; BP diastolic 46–56; PULSE 59–72; RESP 14–20; TEMP 36.3–36.6; O2SAT 94–100
[2024-03-30 00:55] LABS: Glucose Point of Care 94 mg/dl (65-105)
[2024-03-30 00:55] LABS: Glucose Point of Care 164 mg/dl (65-105)
[2024-03-30 06:02] LABS: Glucose Point of Care 92 mg/dl (65-105)
[2024-03-30 06:34] LABS: Hematocrit 37.7 % (37.0-47.0); Hemoglobin 11.3 g/dL (12.0-15.0); Mean Corpuscular Hemoglobin 29.9 pg (26-34); Mean Corpuscular Volume 99.7 fl (80-100); Mean Platelet Volume 9.6 fl (7.4-10.4); Platelet Count Result 159 k/mm3 (150-375); Red Blood Count 3.78 M/mm3 (4.2-5.4); Red Cell Distribution Width 16.8 % (11.5-14.5); White Blood Count 2.6 K/mm3 (4.5-10.0)
[2024-03-30 07:01] LABS: Alanine Aminotransferase 14 U/L (6-35); Albumin Level 3.7 g/dL (3.5-5.1); Alkaline Phosphatase 207 U/L (38-126); Aspartate Amino Transferase 28 U/L (14-36); Bilirubin,Total 0.6 mg/dL (0.2-1.3); Blood Urea Nitrogen 47 mg/dL (7-17); Carbon Dioxide > 40 mmol/L (22-30); Chloride 91 mmol/L (98-107); Estimated CRCL calculation 25 ml/min; Estimated Glomerular Filt Rate 31; Glucose 108 mg/dL (65-110); Magnesium 2.4 mg/dL (1.6-2.3); Potassium 4.4 mmol/L (3.4-5.0); Sodium 137 mmol/L (137-145)
--- NOTE | 2024-03-30 08:06 | PM.IMPN ---
Progress Note: A&P Assessment and Plan (1) Acute hyperkalemia: Code(s): E87.5 - Hyperkalemia Status: Acute (2) Acute kidney injury: Code(s): N17.9 - Acute kidney failure, unspecified Status: Acute (3) Hypoglycemia: Code(s): E16.2 - Hypoglycemia, unspecified Status: Acute (4) Dementia: Qualifiers: Dementia behavioral or psychological symptom: with agitation Dementia severity: severe Dementia type: unspecified type Qualified Code(s): F03.C11 - Unspecified dementia, severe, with agitation Code(s): F03.90 - Unspecified dementia, unspecified severity, without behavioral disturbance, psychotic disturbance, mood disturbance, and anxiety Status: Acute Plan #Acute kidney injury: Do believe due to the multifactorial medication vs over diuresis vs exacerbation of CHF. Hyperkalemia resolved today hyperkalemia resolved today 4.9. The creatinine 2.1 which has increased from yesterday 1.9. GFR remains low 22. Nephrology is consulted and following recs. 03/29/2024: Patient current kidney function has been improved from 2.1 to 1.40. GFR is also increased from 20 to 36. Continue monitor her kidney function. 03/30/2024: Patient's creatinine increased from 1.4 to 1.6. Will continue to monitor the creatinine as the patient medication Entresto has been added to back at the low dose. Patient is currently on Lasix 40 mg p.o. q.d. he CHF: Patient was recently started on Entresto. Patient is also taking spironolactone and potassium supplement which was held due to the concern of hyperkalemia on the current admission. Patient Entresto was also on hold. The optimization of the CHF was not able to achieve due to the concerns of hyperkalemia. The patient also developed CHA during the course of hospitalization for which Nephrology is consulted. Patient continued receiving Lasix. The previous echocardiogram was done on August 2023 which shows left ventricular systolic dysfunction with ejection fraction of 65-70%. Cardiology was consulted and would appreciate recs. 03/29/2024: Discussed the case with the Cardiology. Cardiology resumed Entresto at lower dose and resume the Jardiance. Cardiology recommends no need of spironolactone and potassium supplement. The Lasix has been converted from IV to p.o.. We will continue monitoring her renal function tomorrow. : No changes on the cardiac standpoint. Patient continues to receive interest at low-dose. Will continue to monitor renal function. No evidence of CHF exacerbation. Echo was done during this admission which shows left ventricular systolic function is normal with estimated ejection fraction of 60 - 70%. Subjective Date/time seen: 03/30/24 08:06 Interval history: Patient was evaluated at the bedside. Patient's grandson was present. Patient is oriented and able to hold conversation better when compared to recent days. Review of Systems Review of Systems: ROS unobtainable: Yes unobtainable due to medical condition (Dementia) Exam Narrative: Patient is comfortable, NAD HEENT: eyes are clear and none icteric LUNGS:CTA HEART: RR S1S2 ABD: BS+, Soft and nontender Lower extremities: no edema SKIN: nonjaundiced Neuro: grossly intact. Const: Other: No acute distress, sitting up in bed head of bed at almost 90?, appears stated age HENMT: Other: Oral exam limited due to lack of cooperation, head is normocephalic atraumatic, left eye is held close with history of prior left eye blindness and enucleation, protuberant right eye Eyes: Other: Please see above Neck: Other: No JVD, loss of cervical lordosis Resp: Other: Decreased breath sounds at the bases, no increased work of breathing Cardio: Other: Regular rate, regular rhythm, 2+ left radial pulse, palpable pedal pulses GI: Other: Soft, Distended, nontender, positive bowel sounds : Other:
[2024-03-30] MEDS: ASPIRIN 325 MG TABLET PO (08:27)
[2024-03-30] MEDS: rOPINIRole HCL 1 MG TABLET 4 MG PO ×2 (08:27→19:41)
[2024-03-30] MEDS: VENLAFAXINE HCL XR 75 MG CAP.ER.24H 225 MG PO (08:27)
[2024-03-30] MEDS: GABAPENTIN 100 MG CAPSULE 200 MG PO ×2 (08:27→17:30)
[2024-03-30] MEDS: FUROSEMIDE 40 MG TABLET PO (08:27)
[2024-03-30] MEDS: SACUBITRIL/VALSARTAN 24-26 MG TABLET 1 TAB PO ×2 (08:28→19:41)
[2024-03-30] MEDS: ACETAMINOPHEN 325 MG TABLET 650 MG PO ×2 (08:28→17:30)
[2024-03-30] MEDS: FERROUS SULFATE 325 MG TABLET DR BY MOUTH (08:28)
[2024-03-30] MEDS: ASCORBIC ACID 500 MG TABLET PO (08:28)
[2024-03-30] MEDS: CYANOCOBALAMIN 500 MCG TABLET PO (08:28)
[2024-03-30] MEDS: TOLNAFTATE 1% POWDER 45 GM BTL 1 APPLIC TOPICAL ×2 (08:29→19:50)
[2024-03-30 12:41] LABS: Glucose Point of Care 81 mg/dl (65-105)
--- NOTE | 2024-03-30 13:40 | PM.PNNEP ---
Progress Note: A&P Assessment and Plan (1) Acute kidney injury: Code(s): N17.9 - Acute kidney failure, unspecified Status: Acute Assessment and Plan: as noted on admission slow improvement noted suspect multifactorial: medications (Entresto, lasix, spironolactone) overdiuresis(?) relative hypotension possible underlying CKD (?) evaluation to date noted: renal ultrasound with bilateral atrophy urine electrolytes non-prerenal mild proteinuria urine eosinophils negative CPK normal Entresto resumed at lower dose follow trend of repeat labs and UOP (2) Acute hyperkalemia: Code(s): E87.5 - Hyperkalemia Status: Acute Assessment and Plan: better at this time likely secondary to CHA/ARF in conjunction with medications (K+ supplements + Entresto + spironolactone) s/p medical management potassium supplements and spironolactone on hold Entresto resumed at lower dose follow repeat K+ levels (3) CHF (congestive heart failure): Qualifiers: Heart failure chronicity: acute on chronic Heart failure type: unspecified Qualified Code(s): I50.9 - Heart failure, unspecified Code(s): I50.9 - Heart failure, unspecified Status: Chronic Assessment and Plan: appears relatively compensated follow volume status closely (4) Dementia: Qualifiers: Dementia type: unspecified type Dementia severity: severe Dementia behavioral or psychological symptom: with agitation Qualified Code(s): F03.C11 - Unspecified dementia, severe, with agitation Code(s): F03.90 - Unspecified dementia, unspecified severity, without behavioral disturbance, psychotic disturbance, mood disturbance, and anxiety Status: Chronic Assessment and Plan: stable if not better Will continue to follow. Subjective Date/time seen: 03/30/24 13:40 Interval history: Follow-up for acute kidney injury/acute renal failure and hyperkalemia. Slow and steady improvement in mentation as well as renal function/creatinine as noted; no apparent distress noted; no acute complaints voiced at the time of my visit. Exam Narrative: General: elderly female in NAD Heart: normal S1 and S2; no rub Lungs: clear anteriorly Abdomen: soft, nontender, nondistended, positive bowel sounds Extremities: no cyanosis or clubbing; no edema Skin: no rash or nodules Objective Data Vital Signs Vital Signs: Vital Signs Temp Pulse Resp BP Pulse Ox O2 Del Method O2 Flow Rate 03/30/24 13:00 97.8 F 61 16 124/56 L 03/30/24 11:17 94 Nasal Cannula 3 03/30/24 08:00 72 03/30/24 08:30 97 Nasal Cannula 3 03/30/24 06:00 97.9 F 68 20 98/52 L 100 03/30/24 04:00 60 03/30/24 00:00 65 03/29/24 20:00 60 03/29/24 23:30 90/60 L 03/29/24 22:17 82/48 L 03/29/24 21:10 97.9 F 60 20 72/42 L 98 Intake/Output Intake/Output: Intake & Output 03/27/24 03/28/24 03/29/24 03/30/24 23:59 23:59 23:59 23:59 Intake Total 1010 3214 966 5315 Output Total 345 523 8965 500 Balance 860 788 -400 520 Meds/Results Medications: Active Medications Generic Name Dose Route Start Last Admin Trade Name Freq PRN Reason Stop Dose Admin Acetaminophen 650 mg 03/26/24 07:39 03/30/24 08:28 Acetaminophen 325 Mg Tablet PO 650 mg Q6H PRN Administration Pain 1-3 or fever Hydrocodone Bitart/Acetaminophen 1 tab 03/26/24 07:39 03/28/24 23:13 Hydrocodone/Acetaminophen (*Crx) 10-325 Mg Tablet PO 1 tab Q6H PRN Administration Pain 7-10 Hydrocodone Bitart/Acetaminophen 1 tab 03/26/24 09:00 03/30/24 08:28 Hydrocodone/Acetaminophen (*Crx) 10-325 Mg Tablet PO Not Given BID DARIEN Albuterol 2 puff 03/26/24 07:39 Albuterol Sulfate (*Sp) Aerosol 1 Puff INHALATION Q4HRT PRN Shortness Of Breath/Wheezing Artificial Tears 2 drop 03/26/24 07:52 Artifi
--- NOTE | 2024-03-30 13:40 | P.PNNP_ITS ---
Progress Note: A&P Assessment and Plan (1) Acute kidney injury: Code(s): N17.9 - Acute kidney failure, unspecified Status: Acute Assessment and Plan: * as noted on admission * slow improvement noted * suspect multifactorial: * medications (Entresto, lasix, spironolactone) * overdiuresis(?) * relative hypotension * possible underlying CKD (?) * evaluation to date noted: * renal ultrasound with bilateral atrophy * urine electrolytes non-prerenal * mild proteinuria * urine eosinophils negative * CPK normal * Entresto resumed at lower dose * follow trend of repeat labs and UOP (2) Acute hyperkalemia: Code(s): E87.5 - Hyperkalemia Status: Acute Assessment and Plan: * better at this time * likely secondary to CHA/ARF in conjunction with medications (K+ supplements + Entresto + spironolactone) * s/p medical management * potassium supplements and spironolactone on hold * Entresto resumed at lower dose * follow repeat K+ levels (3) CHF (congestive heart failure): Qualifiers: Heart failure chronicity: acute on chronic Heart failure type: unspecified Qualified Code(s): I50.9 - Heart failure, unspecified Code(s): I50.9 - Heart failure, unspecified Status: Chronic Assessment and Plan: * appears relatively compensated * follow volume status closely (4) Dementia: Qualifiers: Dementia type: unspecified type Dementia severity: severe Dementia behavioral or psychological symptom: with agitation Qualified Code(s): F03.C11 - Unspecified dementia, severe, with agitation Code(s): F03.90 - Unspecified dementia, unspecified severity, without behavioral dis turbance, psychotic disturbance, mood disturbance, and anxiety Status: Chronic Assessment and Plan: * stable if not better Will continue to follow. Subjective Date/time seen: 03/30/24 13:40 Interval history: Follow-up for acute kidney injury/acute renal failure and hyperkalemia. Slow and steady improvement in mentation as well as renal function/creatinine as noted; no apparent distress noted; no acute complaints voiced at the time of my visit. Exam Narrative: General: elderly female in NAD Heart: normal S1 and S2; no rub Lungs: clear anteriorly Abdomen: soft, nontender, nondistended, positive bowel sounds Extremities: no cyanosis or clubbing; no edema Skin: no rash or nodules Objective Data Vital Signs Vital Signs: Vital Signs Temp Pulse Resp BP Pulse Ox O2 Del Method O2 Flow Rate 03/30/24 13:00 97.8 F 61 16 124/56 L 03/30/24 11:17 94 Nasal Cannula 3 03/30/24 08:00 72 03/30/24 08:30 97 Nasal Cannula 3 03/30/24 06:00 97.9 F 68 20 98/52 L 100 03/30/24 04:00 60 03/30/24 00:00 65 03/29/24 20:00 60 03/29/24 23:30 90/60 L 03/29/24 22:17 82/48 L 03/29/24 21:10 97.9 F 60 20 72/42 L 98 Intake/Output Intake/Output: Intake & Output 03/27/24 03/28/24 03/29/24 03/30/24 23:59 23:59 23:59 23:59 Intake Total 1010 9927 755 5414 Output Total 035 735 8402 500 Balance 860 788 -400 520 Meds/Results Medications:
[2024-03-30 18:03] LABS: Glucose Point of Care 97 mg/dl (65-105)
[2024-03-30] MEDS: ATORVASTATIN 10 MG TABLET PO (19:41)
[2024-03-30] MEDS: GABAPENTIN 300 MG CAPSULE PO (19:41)
[2024-03-30] MEDS: HALOPERIDOL 1 MG TABLET PO (19:41)
[2024-03-30] MEDS: MELATONIN 5 MG TABLET PO (19:42)
[2024-03-30 22:19] LABS: Glucose Point of Care 110 mg/dl (65-105)
[2024-03-31] VITALS (8 sets, daily range): BP systolic 95–116; BP diastolic 47–54; PULSE 59–73; RESP 16–19; TEMP 36.1–36.7; O2SAT 95–100
[2024-03-31 00:06] LABS: Glucose Point of Care 84 mg/dl (65-105)
[2024-03-31 06:21] LABS: Glucose Point of Care 78 mg/dl (65-105)
[2024-03-31] MEDS: VENLAFAXINE HCL XR 75 MG CAP.ER.24H 225 MG PO (08:37)
[2024-03-31] MEDS: ASPIRIN 325 MG TABLET PO (08:38)
[2024-03-31] MEDS: ASCORBIC ACID 500 MG TABLET PO (08:38)
[2024-03-31] MEDS: ACETAMINOPHEN 325 MG TABLET 650 MG PO ×2 (08:38→17:29)
[2024-03-31] MEDS: SACUBITRIL/VALSARTAN 24-26 MG TABLET 1 TAB PO ×2 (08:38→20:35)
[2024-03-31] MEDS: GABAPENTIN 100 MG CAPSULE 200 MG PO ×2 (08:39→17:30)
[2024-03-31] MEDS: rOPINIRole HCL 1 MG TABLET 4 MG PO ×2 (08:39→20:34)
[2024-03-31] MEDS: FUROSEMIDE 40 MG TABLET PO (08:39)
[2024-03-31] MEDS: FERROUS SULFATE 325 MG TABLET DR BY MOUTH (08:39)
[2024-03-31] MEDS: CYANOCOBALAMIN 500 MCG TABLET PO (08:39)
[2024-03-31] MEDS: TOLNAFTATE 1% POWDER 45 GM BTL 1 APPLIC TOPICAL ×2 (08:40→20:35)
--- NOTE | 2024-03-31 11:08 | PCPTNOTE ---
Attempted to see patient for treatment at this time, however patient lethargic and having difficulty staying awake to participate in therapy. RN aware. PT will continue to follow per plan of care.
[2024-03-31 11:38] LABS: Glucose Point of Care 148 mg/dl (65-105)
[2024-03-31 13:02] LABS: Hematocrit 35.5 % (37.0-47.0); Hemoglobin 10.7 g/dL (12.0-15.0); Mean Corpuscular HGB Conc 30.1 g/dl (32-36); Mean Corpuscular Hemoglobin 30.3 pg (26-34); Mean Corpuscular Volume 100.6 fl (80-100); Mean Platelet Volume 10.1 fl (7.4-10.4); Platelet Count Result 158 k/mm3 (150-375); Red Blood Count 3.53 M/mm3 (4.2-5.4); Red Cell Distribution Width 17.1 % (11.5-14.5); White Blood Count 2.1 K/mm3 (4.5-10.0)
[2024-03-31 13:22] LABS: Albumin Level 3.5 g/dL (3.5-5.1); Blood Urea Nitrogen 42 mg/dL (7-17); Calcium 8.8 mg/dL (8.4-10.2); Carbon Dioxide > 40 mmol/L (22-30); Chloride 94 mmol/L (98-107); Estimated CRCL calculation 36 ml/min; Estimated Glomerular Filt Rate 47; Glucose 133 mg/dL (65-110); Phosphorus 3.9 mg/dL (2.5-4.5); Potassium 4.5 mmol/L (3.4-5.0); Sodium 139 mmol/L (137-145)
--- NOTE | 2024-03-31 13:37 | PCPTNOTE ---
Returned to see patient this afternoon for PT. Patient refused PT stating maybe later but not now. PT will continue to follow per plan of care.
--- NOTE | 2024-03-31 14:45 | P.PNNP_ITS ---
Progress Note: A&P Assessment and Plan (1) Acute kidney injury: Code(s): N17.9 - Acute kidney failure, unspecified Status: Acute Assessment and Plan: * as noted on admission * slow improvement noted * suspect multifactorial: * medications (Entresto, lasix, spironolactone) * overdiuresis(?) * relative hypotension * possible underlying CKD (?) * evaluation to date noted: * renal ultrasound with bilateral atrophy * urine electrolytes non-prerenal * mild proteinuria * urine eosinophils negative * CPK normal * Entresto resumed at lower dose * follow trend of repeat labs and UOP (2) Acute hyperkalemia: Code(s): E87.5 - Hyperkalemia Status: Acute Assessment and Plan: * better at this time * likely secondary to CHA/ARF in conjunction with medications (K+ supplements + Entresto + spironolactone) * s/p medical management * potassium supplements and spironolactone on hold * Entresto resumed at lower dose * follow repeat K+ levels (3) CHF (congestive heart failure): Qualifiers: Heart failure chronicity: acute on chronic Heart failure type: unspecified Qualified Code(s): I50.9 - Heart failure, unspecified Code(s): I50.9 - Heart failure, unspecified Status: Chronic Assessment and Plan: * appears relatively compensated * follow volume status closely (4) Dementia: Qualifiers: Dementia behavioral or psychological symptom: with agitation Dementia severity: severe Dementia type: unspecified type Qualified Code(s): F03.C11 - Unspecified dementia, severe, with agitation Code(s): F03.90 - Unspecified dementia, unspecified severity, without behavioral dis turbance, psychotic disturbance, mood disturbance, and anxiety Status: Chronic Assessment and Plan: * stable Would not be opposed to discharge from renal perspective f renal function continues to improve/stabilze and is otherwise medically stable. Not much else to add -- will continue to follow from a distance. Subjective Date/time seen: 03/31/24 14:45 Interval history: Follow-up for acute kidney injury/acute renal failure and hyperkalemia. Renal function continues to improve with relative stability in potassium level as well; no apparent distress noted; no issues/events overnight or earlier this morning. Exam Narrative: General: elderly female in NAD Heart: normal S1 and S2; no rub Lungs: clear to auscultation Abdomen: soft, nontender, nondistended, positive bowel sounds Extremities: no cyanosis or clubbing; no edema Skin: warm and dry Objective Data Vital Signs Vital Signs: Vital Signs Temp Pulse Resp BP Pulse Ox O2 Del Method O2 Flow Rate 03/31/24 14:00 97.3 F L 64 19 112/54 L 97 03/31/24 12:00 60 03/31/24 08:40 95 Nasal Cannula 3 03/31/24 08:00 62 03/31/24 08:47 Nasal Cannula 3 03/31/24 06:00 97.0 F L 62 18 116/47 L 100 03/31/24 04:00 60 03/31/24 00:00 73 03/30/24 22:00 97.3 F L 59 L 14 107/46 L 100 03/30/24 20:00 60 03/30/24 16:00 69 Intake/Output Intake/Output: Intake & Output 03/28/24 03/29/24 03/30/24 03/31/24 23:59 23:59 23:59 23:59 Intake
--- NOTE | 2024-03-31 14:45 | PM.PNNEP ---
Progress Note: A&P Assessment and Plan (1) Acute kidney injury: Code(s): N17.9 - Acute kidney failure, unspecified Status: Acute Assessment and Plan: as noted on admission slow improvement noted suspect multifactorial: medications (Entresto, lasix, spironolactone) overdiuresis(?) relative hypotension possible underlying CKD (?) evaluation to date noted: renal ultrasound with bilateral atrophy urine electrolytes non-prerenal mild proteinuria urine eosinophils negative CPK normal Entresto resumed at lower dose follow trend of repeat labs and UOP (2) Acute hyperkalemia: Code(s): E87.5 - Hyperkalemia Status: Acute Assessment and Plan: better at this time likely secondary to CHA/ARF in conjunction with medications (K+ supplements + Entresto + spironolactone) s/p medical management potassium supplements and spironolactone on hold Entresto resumed at lower dose follow repeat K+ levels (3) CHF (congestive heart failure): Qualifiers: Heart failure chronicity: acute on chronic Heart failure type: unspecified Qualified Code(s): I50.9 - Heart failure, unspecified Code(s): I50.9 - Heart failure, unspecified Status: Chronic Assessment and Plan: appears relatively compensated follow volume status closely (4) Dementia: Qualifiers: Dementia behavioral or psychological symptom: with agitation Dementia severity: severe Dementia type: unspecified type Qualified Code(s): F03.C11 - Unspecified dementia, severe, with agitation Code(s): F03.90 - Unspecified dementia, unspecified severity, without behavioral disturbance, psychotic disturbance, mood disturbance, and anxiety Status: Chronic Assessment and Plan: stable Would not be opposed to discharge from renal perspective f renal function continues to improve/stabilze and is otherwise medically stable. Not much else to add -- will continue to follow from a distance. Subjective Date/time seen: 03/31/24 14:45 Interval history: Follow-up for acute kidney injury/acute renal failure and hyperkalemia. Renal function continues to improve with relative stability in potassium level as well; no apparent distress noted; no issues/events overnight or earlier this morning. Exam Narrative: General: elderly female in NAD Heart: normal S1 and S2; no rub Lungs: clear to auscultation Abdomen: soft, nontender, nondistended, positive bowel sounds Extremities: no cyanosis or clubbing; no edema Skin: warm and dry Objective Data Vital Signs Vital Signs: Vital Signs Temp Pulse Resp BP Pulse Ox O2 Del Method O2 Flow Rate 03/31/24 14:00 97.3 F L 64 19 112/54 L 97 03/31/24 12:00 60 03/31/24 08:40 95 Nasal Cannula 3 03/31/24 08:00 62 03/31/24 08:47 Nasal Cannula 3 03/31/24 06:00 97.0 F L 62 18 116/47 L 100 03/31/24 04:00 60 03/31/24 00:00 73 03/30/24 22:00 97.3 F L 59 L 14 107/46 L 100 03/30/24 20:00 60 03/30/24 16:00 69 Intake/Output Intake/Output: Intake & Output 03/28/24 03/29/24 03/30/24 03/31/24 23:59 23:59 23:59 23:59 Intake Total 6594 768 6544 120 Output Total 400 1000 1350 300 Balance 788 -400 1006 -180 Meds/Results Medications: Active Medications Generic Name Dose Route Start Last Admin Trade Name Freq PRN Reason Stop Dose Admin Acetaminophen 650 mg 03/26/24 07:39 03/31/24 08:38 Acetaminophen 325 Mg Tablet PO 650 mg Q6H PRN Administration Pain 1-3 or fever Hydrocodone Bitart/Acetaminophen 1 tab 03/26/24 07:39 03/28/24 23:13 Hydrocodone/Acetaminophen (*Crx) 10-325 Mg Tablet PO 1 tab Q6H PRN Administration Pain 7-10 Hydrocodone Bitart/Acetaminophen 1 tab 03/26/24 09:00 03/31/24 08:40 Hydrocodone/Acetaminophen (*Crx) 10-325 Mg Tablet PO Not Given BID DARIEN Albuterol 2 puff 03/26
--- NOTE | 2024-03-31 15:39 | PM.IMPN ---
Progress Note: A&P Assessment and Plan (1) Acute hyperkalemia: Code(s): E87.5 - Hyperkalemia Status: Acute (2) Acute kidney injury: Code(s): N17.9 - Acute kidney failure, unspecified Status: Acute (3) Hypoglycemia: Code(s): E16.2 - Hypoglycemia, unspecified Status: Acute (4) Dementia: Qualifiers: Dementia type: unspecified type Dementia severity: severe Dementia behavioral or psychological symptom: with agitation Qualified Code(s): F03.C11 - Unspecified dementia, severe, with agitation Code(s): F03.90 - Unspecified dementia, unspecified severity, without behavioral disturbance, psychotic disturbance, mood disturbance, and anxiety Status: Acute Plan #Acute kidney injury: Do believe due to the multifactorial medication vs over diuresis vs exacerbation of CHF. Hyperkalemia resolved today hyperkalemia resolved today 4.9. The creatinine 2.1 which has increased from yesterday 1.9. GFR remains low 22. Nephrology is consulted and following recs. 03/29/2024: Patient current kidney function has been improved from 2.1 to 1.40. GFR is also increased from 20 to 36. Continue monitor her kidney function. 03/30/2024: Patient's creatinine increased from 1.4 to 1.6. Will continue to monitor the creatinine as the patient medication Entresto has been added to back at the low dose. Patient is currently on Lasix 40 mg p.o. q.d. 03/31/2024: Discussed the case with Cardiology about 2-3 episodes of hypo tension on March 29. Currently patient is in stable. No signs of hypotension. Creatinine continues to improve today it is 1.10 which has decreased from 1.60. If the trend is as expected the patient can be discharged tomorrow to the detention CHF: Patient was recently started on Entresto. Patient is also taking spironolactone and potassium supplement which was held due to the concern of hyperkalemia on the current admission. Patient Entresto was also on hold. The optimization of the CHF was not able to achieve due to the concerns of hyperkalemia. The patient also developed CHA during the course of hospitalization for which Nephrology is consulted. Patient continued receiving Lasix. The previous echocardiogram was done on August 2023 which shows left ventricular systolic dysfunction with ejection fraction of 65-70%. Cardiology was consulted and would appreciate recs. 03/29/2024: Discussed the case with the Cardiology. Cardiology resumed Entresto at lower dose and resume the Jardiance. Cardiology recommends no need of spironolactone and potassium supplement. The Lasix has been converted from IV to p.o.. We will continue monitoring her renal function tomorrow. : No changes on the cardiac standpoint. Patient continues to receive interest at low-dose. Will continue to monitor renal function. No evidence of CHF exacerbation. Echo was done during this admission which shows left ventricular systolic function is normal with estimated ejection fraction of 60 - 70%. 03/31/2024: As mentioned above discussed the case with Cardiology and agrees to continue the current dose of Entresto, furosemide. If no episodes of hypotension and creatinine continues to downtrend patient will be possibly discharged to detention tomorrow. Subjective Date/time seen: 03/31/24 15:39 Interval history: Patient was evaluated at the bedside. Patient'son was present. Patient denies any chest pain or shortness of breath and dyspnea. No signs of agitation or aggression. Discussed the case with the patient's son. Review of Systems Review of Systems: ROS unobtainable: Yes unobtainable due to medical condition (Dementia) Exam Narrative: Patient is comfortable, NAD HEENT: eyes are clear and none icteric LUNGS:CTA HEART: RR S1S2 ABD: BS+, Soft and nontender Lower extremities: no edema SKIN: nonjaundiced Neuro: grossly intact. Const: Other: No acute distre
[2024-03-31 16:49] LABS: Magnesium 2.2 mg/dL (1.6-2.3)
[2024-03-31 19:19] LABS: Glucose Point of Care 146 mg/dl (65-105)
[2024-03-31] MEDS: MELATONIN 5 MG TABLET PO (20:34)
[2024-03-31] MEDS: GABAPENTIN 300 MG CAPSULE PO (20:34)
[2024-03-31] MEDS: ATORVASTATIN 10 MG TABLET PO (20:34)
[2024-03-31] MEDS: HALOPERIDOL 1 MG TABLET PO (20:34)
[2024-03-31 23:28] LABS: Glucose Point of Care 118 mg/dl (65-105)
[2024-04-01 06:00] VITALS: BP 119/62; PULSE 60; RESP 20; TEMP 36.4; O2SAT 94
[2024-04-01 06:10] LABS: Hematocrit 34.3 % (37.0-47.0); Hemoglobin 10.2 g/dL (12.0-15.0); Mean Corpuscular HGB Conc 29.7 g/dl (32-36); Mean Corpuscular Hemoglobin 30.1 pg (26-34); Mean Corpuscular Volume 101.2 fl (80-100); Mean Platelet Volume 9.7 fl (7.4-10.4); Platelet Count Result 155 k/mm3 (150-375); Red Blood Count 3.39 M/mm3 (4.2-5.4); Red Cell Distribution Width 17.3 % (11.5-14.5); White Blood Count 2.5 K/mm3 (4.5-10.0)
[2024-04-01 06:28] LABS: Glucose Point of Care 78 mg/dl (65-105)
[2024-04-01 06:38] LABS: Alanine Aminotransferase 11 U/L (6-35); Albumin Level 2.9 g/dL (3.5-5.1); Alkaline Phosphatase 160 U/L (38-126); Anion Gap 5 mmol/L (4-12); Aspartate Amino Transferase 25 U/L (14-36); Bilirubin,Total 0.6 mg/dL (0.2-1.3); Blood Urea Nitrogen 41 mg/dL (7-17); Calcium 8.9 mg/dL (8.4-10.2); Carbon Dioxide 39 mmol/L (22-30); Chloride 96 mmol/L (98-107); Estimated CRCL calculation 44 ml/min; Estimated Glomerular Filt Rate 59; Glucose 80 mg/dL (65-110); Magnesium 2.1 mg/dL (1.6-2.3); Potassium 4.4 mmol/L (3.4-5.0); Sodium 140 mmol/L (137-145)
[2024-04-01 07:40] LABS: Glucose Point of Care 137 mg/dl (65-105)
[2024-04-01 08:00] VITALS: O2SAT 96
[2024-04-01] MEDS: FUROSEMIDE 40 MG TABLET PO (09:43)
[2024-04-01] MEDS: VENLAFAXINE HCL XR 75 MG CAP.ER.24H 225 MG PO (09:43)
[2024-04-01] MEDS: CYANOCOBALAMIN 500 MCG TABLET PO (09:43)
[2024-04-01] MEDS: ASPIRIN 325 MG TABLET PO (09:43)
[2024-04-01] MEDS: HYDROcodone/acetaminophen (*CRX) 10-325 MG TABLET 1 TAB PO ×2 (09:43→19:13)
[2024-04-01] MEDS: SACUBITRIL/VALSARTAN 24-26 MG TABLET 1 TAB PO (09:43)
[2024-04-01] MEDS: rOPINIRole HCL 1 MG TABLET 4 MG PO (09:43)
[2024-04-01] MEDS: GABAPENTIN 100 MG CAPSULE 200 MG PO ×2 (09:44→19:13)
[2024-04-01] MEDS: ASCORBIC ACID 500 MG TABLET PO (09:44)
[2024-04-01] MEDS: FERROUS SULFATE 325 MG TABLET DR BY MOUTH (09:44)
[2024-04-01] MEDS: TOLNAFTATE 1% POWDER 45 GM BTL 1 APPLIC TOPICAL (09:48)
--- NOTE | 2024-04-01 13:24 | PM.DS ---
DS: Admitting Diagnosis Discharge Date 04/01/2024 Admitting Diagnosis Abnormal labs DS: Discharge Diagnosis Discharge Diagnosis (1) Acute hyperkalemia: Code(s): E87.5 - Hyperkalemia Status: Acute (2) Acute kidney injury: Code(s): N17.9 - Acute kidney failure, unspecified Status: Acute (3) Hypoglycemia: Code(s): E16.2 - Hypoglycemia, unspecified Status: Acute (4) Dementia: Qualifiers: Dementia type: unspecified type Dementia severity: severe Dementia behavioral or psychological symptom: with agitation Qualified Code(s): F03.C11 - Unspecified dementia, severe, with agitation Code(s): F03.90 - Unspecified dementia, unspecified severity, without behavioral disturbance, psychotic disturbance, mood disturbance, and anxiety Status: Chronic DS: Summary Hospital Course Hospital Course: 88-year-old male with past medical history of moderate to severe dementia with behavioral disturbances chronic hypoxic hypercapnic respiratory failure chronic kidney disease paroxysmal atrial fibrillation status post Watchman device peripheral vascular disease restless legs syndrome spinal stenosis chronic pain presented to the ER from [facility] due to abnormal labs with hyperkalemia. Patient was hospitalized 03/16/2024 through 03/21/2024 due to exacerbation of hypoxic respiratory failure CHF and COPD exacerbation. Patient was discharged from the hospital on Entresto. Follow-up labs demonstrated acute on chronic kidney injury with hyperkalemia and was sent to ER for evaluation. In the ER C received insulin dextrose calcium and sodium bicarb. Repeat Accu-Chek was performed on the patient was found unresponsive on the medical floor patient's glucose was 31 for which hypoglycemia protocol was instituted. Patient continued to have episodes of hypoglycemia and was placed on dextrose drip. Chest x-ray on admission showed bilateral pneumonia and underlying pulmonary edema. # CHA: Multifactorial medication versus over-diuresis versus exacerbation of CHF. Also had hyperkalemia. Creatinine of 2.1 on admission. Nephrology was consulted. Diuresis was held and so was Entresto and spironolactone creatinine normalized by the time of discharge. She has been started back on Entresto and Lasix with stable creatinine. Renal ultrasound with mild atrophy of the kidneys with no hydronephrosis. CPK normal # Hyperkalemia resolved with treatment. Stop potassium supplementation. Spironolactone at discharge # hypotension mild related to medication resolved with monitoring # CHF: Recently started on Entresto and spironolactone. Lower dose of Entresto was been started this admission. Echo August 2023 showed l EF of 65-70%. Repeat echo 02/2024 with EF normal with concentric left ventricular hypertrophy grade 1 diastolic dysfunction. # hypoglycemia unclear etiology however be due to insulin treatment for hyperkalemia. This is now resolved # DVT prophylaxis # code status do not resuscitate Time Spent with Patient Time attestation: Total time spent providing and/or coordinating discharge services: 40 minutes Exam Narrative: Patient is comfortable, NAD HEENT: eyes are clear and none icteric LUNGS:CTA HEART: RR S1S2 ABD: BS+, Soft and nontender Lower extremities: no edema SKIN: nonjaundiced Neuro: grossly intact. DS: Data Data Completed and Pending Labs on day of discharge: Labs from last 24 hours 04/01/24 04/01/24 04/01/24 07:35 06:25 05:41 WBC 2.5 L RBC 3.39 L Hgb 10.2 L Hct 34.3 L MCV 101.2 H MCH 30.1 MCHC 29.7 L RDW 17.3 H Plt Count 155 MPV 9.7 Sodium 140 Potassium 4.4 Chloride 96 L Carbon Dioxide 39 H Anion Gap 5 BUN 41 H Creatinine 0.90 Estim Creat Clear Calc 44 Estimated GFR 59 Glucose 80 POC Capillary Glucose 137 H 78 Calcium 8.9 Magnesium 2.1 Total Bilirubin 0.6 AST 25 ALT 1
[2024-04-01 13:53] VITALS: BP 105/52; PULSE 55; RESP 19; TEMP 36.5; O2SAT 98
[2024-04-01 17:20] LABS: SARS-CoV-2 RNA PCR Negative (Negative)
[2024-04-01 20:02] LABS: Glucose Point of Care 135 mg/dl (65-105)
== END 2024-04-01 20:46 | DRG 682 ==
LOC: ANHED 03-26 02:51 → ANH3MEDSUR 03-26 03:42
PROVIDERS: Family Medicine; General Practice; Internal Medicine Nephrology; Admitting Provider Internal Medicine; Emergency Provider Emergency Medicine; PCP Family Medicine; Visit Provider Internal Medicine
DX: N17.9 Acute kidney failure, unspecified (principal); I50.33 Acute on chronic diastolic (congestive) heart failure; I13.0 Hypertensive heart and chronic kidney disease with heart failure and stage 1 through stage 4 chronic kidney disease, or unspecified chronic kidney disease; I48.20 Chronic atrial fibrillation, unspecified; J96.12 Chronic respiratory failure with hypercapnia; J96.11 Chronic respiratory failure with hypoxia; F03.918 Unspecified dementia, unspecified severity, with other behavioral disturbance; E87.5 Hyperkalemia; E16.2 Hypoglycemia, unspecified; I95.2 Hypotension due to drugs; Z66 Do not resuscitate; N18.30 Chronic kidney disease, stage 3 unspecified; E78.5 Hyperlipidemia, unspecified; T50.1X5A Adverse effect of loop [high-ceiling] diuretics, initial encounter; T50.0X5A Adverse effect of mineralocorticoids and their antagonists, initial encounter; E03.9 Hypothyroidism, unspecified; E66.9 Obesity, unspecified; I73.9 Peripheral vascular disease, unspecified; M47.816 Spondylosis without myelopathy or radiculopathy, lumbar region; Z96.643 Presence of artificial hip joint, bilateral; Z79.82 Long term (current) use of aspirin; Z68.30 Body mass index [BMI] 30.0-30.9, adult; Z86.718 Personal history of other venous thrombosis and embolism; Z96.659 Presence of unspecified artificial knee joint; Z90.49 Acquired absence of other specified parts of digestive tract; F32.9 Major depressive disorder, single episode, unspecified; Z87.891 Personal history of nicotine dependence; G89.4 Chronic pain syndrome; Z20.822 Contact with and (suspected) exposure to COVID-19
CPT/HCPCS: 36415; 71045; 76775; 80048; 80053; 80069; 81001; 82550; 82570; 82948; 83735; 84156; 84300; 84439; 84443; 84480; 84540; 85025; 85027; 85055; 85999; 87086; 87635; 93005; 96361; 96365; 96374; 96375; 96376; 97110; 97161; 97165; 97530; 97535; 99285; A9270; G0378; J0612; J1815; J1940; J1956; J7030; J7050; J7070

== ENCOUNTER 2024-04-06 22:44 | Inpatient (IN) | payer MEDICARE, SELFPAY ==
--- NOTE | ~2024-04-06 | CT_ITS ---
EXAMINATION: CTA chest PE protocol DATE: 04/07/2024 01:59 INDICATION: Hypoxia. Wheezing. TECHNIQUE: Computed tomography angiography (CTA) of the chest was performed with 100 mL Omnipaque-350 intravenous contrast timed to evaluate the pulmonary arteries. Coronal maximum intensity projection 3D-reconstructions were created by the technologist. Automated exposure control and iterative reconst ruction technique were employed. The dose-length product was 532.27 mGy-cm. COMPARISON: Chest CT 03/06/2024 FINDINGS: The lungs demonstrate widespread patchy airspace and groundglass opacities and septal thick ening. There are small pleural effusions. Cardiomegaly is noted. There is a closure device at left at rial appendage. There are coronary artery calcifications. No pericardial effusion. There is no pulmon landon embolus. The central pulmonaries are enlarged, consistent with pulmonary arterial hypertension. C alcified right hilar lymph nodes are consistent with old granulomatous disease. There is a moderate-s ized sliding hiatal hernia. There is a filter in the inferior vena cava. There is severe thoracic spo ndylosis. There are chronic compression fractures of T9 and T11. There are chronic burst fractures of T12 and L1 with changes of vertebroplasty. IMPRESSION: 1. No pulmonary embolus. 2. Diffuse lung disease, consistent with severe pulmonary edema. 3. Small pleural effusions. 4. Moderate-sized sliding hiatal hernia. Reviewed, dictated and finalized at location A.
--- NOTE | ~2024-04-06 | XR_ITS ---
EXAMINATION: XR chest 1V portable DATE: 04/06/2024 23:01 INDICATION: Shortness of breath and hypoxia TECHNIQUE: frontal view of the chest was obtained. COMPARISON: Chest radiograph dated 03/28/2024 FINDINGS: There are patchy airspace opacities throughout both lungs relatively sparing portions of the left upp er lung zone.. No pneumothorax or definitive pleural effusion. Cardiomegaly. Left pectoral implantabl e cut tobacco bulker. Surgical clips projecting over the thoracic inlet. Vertebral plasties of a couple levels at the thoracolumbar junction. IVC filter projecting over the right side of the upper lumbar s pine. IMPRESSION: 1. Patchy bilateral airspace opacities which could represent pulmonary edema, pneumonia, atelectasis or some combination thereof. 2. Cardiac medically. Reviewed, dictated and finalized at location A. IMPRESSION: 1. Patchy bilateral airspace opacities which could represent pulmonary edema, p neumonia, atelectasis or some combination thereof. 2. Cardiac medically.
[2024-04-06 22:45] VITALS: BP 128/102; PULSE 104; RESP 35; TEMP 37.9; O2SAT 91
--- NOTE | 2024-04-06 22:50 | ECG_ITS ---
Test Date: 2024-04-06 22:53:45 Measurements Intervals [place] Rate: 112 P: 0 MS: 0 QRS: -12 QRSD: 117 T: 82 QT: 310 QTc: 424 Interpretive Statements ATRIAL FIBRILLATION WITH RAPID VENTRICULAR RESPONSE Compared to ECG 03/26/2024 02:35:36 Ventricular-paced complex(es) or rhythm no longer present Electronically Signed On 04-07-2024 09:56:06 CDT by Scar Kinsey M.D.
--- NOTE | 2024-04-06 22:51 | ED.SOB ---
HPI - SOB/Dyspnea General Chief Complaint: Shortness of Breath/Dyspnea Stated Complaint: Resp distress Source: patient and EMS Mode of arrival: EMS Limitations: physical limitation History of Present Illness HPI Narrative: Patient presents from [facility] via EMS. It is reported that she wears oxygen at baseline, typically 2 liters/minute nasal cannula. He is reported for a diagnosis of CHF. It is also noted that she occasionally takes off her oxygen but will usually rebound after it is reapplied but she did not today. Patient has never required BiPAP or intubation. At baseline she is reportedly alert oriented x3 but with periods of confusion. She had also been noted to be febrile at the facility as reported to EMS. States she had been recently seen for CHF exacerbation and had been on Lasix with potassium. EMS note that she was in respiratory distress initially with a respiratory rate of 30 to 32 and oxygen saturation of 78% on room air. They applied a non-rebreather at 12LPM. She was initially altered. She is noted to have a skin tear on her right hand. EMS gave 2 mg magnesium and 10 mg dexamethasone. SpO2 improved 94% on the non-rebreather and as they arrived to the emergency department she was noted to have or wheezes on auscultation which had not been present previously. Initial EKG was abnormal but EMS was not activating STEMI. Related Data Home Medications Medication Instructions Recorded Confirmed aspirin 325 mg tablet 325 mg PO DAILY 08/06/19 03/26/24 gabapentin 100 mg capsule 200 mg PO BID 08/13/21 03/26/24 ropinirole 4 mg tablet 4 mg PO Q12H 04/28/23 03/26/24 ascorbic acid (vitamin C) 500 mg 500 mg PO DAILY 08/04/23 03/26/24 tablet multivitamin,uw-vdct-traimifq 1 tablet PO DAILY 08/04/23 03/26/24 venlafaxine 150 mg 150 mg PO DAILY 08/04/23 03/26/24 capsule,extended release 24 hr albuterol sulfate 90 mcg/actuation 2 puff inhalation Q4H PRN 09/20/23 03/26/24 aerosol inhaler (Ventolin HFA) Shortness Of Breath Or Wheezing bisacodyl 10 mg rectal suppository 10 mg RECTAL DAILY PRN Constipation 09/20/23 03/26/24 ferrous sulfate 325 mg (65 mg 325 mg PO DAILY 09/20/23 03/26/24 iron) tablet polyvinyl alcohol-povidone (PF) 2 drp EACH EYE QID PRN Dry Eyes 09/20/23 03/26/24 1.4 %-0.6 % eye drops in a dropperette (Refresh Classic (PF)) haloperidol 1 mg tablet 1 mg PO HS 03/06/24 03/26/24 lifitegrast 5 % eye drops in a 1 drp EACH EYE BID 03/06/24 03/26/24 dropperette (Xiidra) acetaminophen 325 mg tablet 650 mg PO Q6H PRN Pain 03/07/24 03/26/24 cyanocobalamin (vitamin B-12) 500 500 mcg PO DAILY 03/07/24 03/26/24 mcg tablet gabapentin 100 mg capsule 300 mg PO HS 03/07/24 03/26/24 magnesium hydroxide 400 mg/5 mL 30 ml PO HS PRN Constipation 03/07/24 03/26/24 oral suspension (Milk of Magnesia) melatonin 5 mg tablet 5 mg PO HS 03/07/24 03/26/24 polyethylene glycol 3350 17 gram 17 g PO DAILY PRN Constipation 03/07/24 03/26/24 oral powder packet (Miralax) venlafaxine 75 mg capsule,extended 75 mg PO DAILY 03/07/24 03/26/24 release 24 hr hydrocodone 10 mg-acetaminophen 1 tablet PO BID 03/17/24 03/26/24 325 mg tablet hydrocodone 10 mg-acetaminophen 1 tablet PO Q6H PRN Pain 03/17/24 03/26/24 325 mg tablet Allergies Allergy/AdvReac Type Severity Reaction Status Date / Time Penicillins Allergy Severe Hives Verified 03/26/24 00:06 Sulfa (Sulfonamide Allergy Intermediate hives Verified 03/26/24 00:06 Antibiotics) sulfamethoxazole Allergy Hives Verified 03/26/24 00:06 [From Bactrim] trimethoprim [From Bactrim] Allergy Hives Verified 03/26/24 00:06 morphine AdvReac Intermediate Hallucinati Verified 03/26/24 00:06 ng bumetanide AdvReac Nausea Verified 03/26/24 00:06 [facility] Past Medical History Medical History (Updated 04/07/24 @ 04:18 by Shanti Jaeger MD) Acute kidney failure, unspecified Afib patient had wactchman placed for a. fib approximately 2018 Chronic a-fib Chronic pain disord
[2024-04-06] MEDS: IPRATROPIUM 0.5 MG/ALBUTEROL SULFATE 2.5 MG AMPUL.NEB 3 ML INHALATION ×3 (23:02→23:25)
[2024-04-06 23:06] VITALS: PULSE 106; O2SAT 91
[2024-04-06 23:14] LABS: Alveolar/Arterial O2 Gradient 496.1 mmHg; Base Excess ABG 2.1 mEq/l (+/-2.0); Fractional Inspired Oxygen 90 %; HCO3 ABG 31.8 mEq/l (22.0-26.0); Oxygen Content ABG 17.1 %vol (16.0-22.0); Oxygen Saturation ABG 89.3 % (95.0-100.0); Oxyhemoglobin 88.8 % THb (90.0-100.0); PO2 ABG 67.5 mmHg (80.0-100.0); PO2 FiO2 Ratio Arterial Blood 0.75 %; Total Hemoglobin 13.7 g/dL (12.0-18.0)
[2024-04-06 23:15] VITALS: PULSE 120; RESP 37
[2024-04-06 23:17] LABS: Device NON-REBREATHER MASK; Modified Allen's Test Pass; PCO2 ABG 76.2 mmHg (35.0-45.0); Site Drawn LEFT RADIAL; pH ABG 7.239 (7.350-7.450)
[2024-04-06 23:27] VITALS: PULSE 120; RESP 37; O2SAT 97
[2024-04-06 23:31] LABS: Basophils Percent Auto 0.3 % (0.2-1.2); Eosinophils Percent Auto 0.2 % (0-4.4); Hemoglobin 13.1 g/dL (12.0-15.0); Immature Granulocyte Absolute 0.01 K/mm3 (0.00-0.031); Immature Granulocyte Percent A 0.2 % (0-0.5); Lymphocytes Absolute Auto 0.68 K/mm3 (0.9-3.2); Lymphocytes Percent Auto 11.3 % (18.3-44.2); Mean Corpuscular HGB Conc 30.5 g/dl (32-36); Mean Corpuscular Hemoglobin 30.2 pg (26-34); Mean Corpuscular Volume 99.1 fl (80-100); Mean Platelet Volume 11.2 fl (7.4-10.4); Monocytes Absolute Auto 0.7 K/mm3 (0.1-0.6); Neutrophils Absolute Auto 4.6 K/mm3 (1.3-6.7); Platelet Count Result 186 k/mm3 (150-375); Red Blood Count 4.34 M/mm3 (4.2-5.4); Red Cell Distribution Width 17.2 % (11.5-14.5)
[2024-04-06] MEDS: ACETAMINOPHEN 650 MG SUPPOSITORY RECTAL (23:37)
[2024-04-06 23:38] VITALS: BP 107/62; PULSE 103; RESP 33; O2SAT 99
[2024-04-06 23:40] VITALS: O2SAT 99
[2024-04-06 23:42] LABS: Lactic Acid Reflex 2.7 mmol/L (0.7-2.0)
[2024-04-06 23:43] LABS: Alanine Aminotransferase 37 U/L (6-35); Albumin Level 4.4 g/dL (3.5-5.1); Alkaline Phosphatase 280 U/L (38-126); Anion Gap 11 mmol/L (4-12); Aspartate Amino Transferase 86 U/L (14-36); Bilirubin,Total 1.4 mg/dL (0.2-1.3); Blood Urea Nitrogen 32 mg/dL (7-17); Calcium 9.2 mg/dL (8.4-10.2); Carbon Dioxide 35 mmol/L (22-30); Chloride 92 mmol/L (98-107); Estimated CRCL calculation 51 ml/min; Estimated Glomerular Filt Rate 43; Glucose 179 mg/dL (65-110); Magnesium 2.8 mg/dL (1.6-2.3); Partial Thromboplastin Time 24.8 Seconds (22.3-36.8); Potassium 4.8 mmol/L (3.4-5.0); Sodium 138 mmol/L (137-145)
[2024-04-06 23:44] LABS: INR 1.1; Prothrombin Time 15.1 Seconds (11.1-14.7)
[2024-04-06 23:50] LABS: NT Pro B Type Natriuretic Pept 7180 pg/mL (19.9-100)
[2024-04-07] VITALS (21 sets, daily range): BP systolic 69–106; BP diastolic 45–82; PULSE 72–95; RESP 11–29; TEMP 36.1–39.1; O2SAT 91–100; BMI 31.3
[2024-04-07 00:07] LABS: D Dimer 7.16 ug/mL (<0.48)
[2024-04-07] MEDS: SODIUM CHLORIDE 0.9% IV 500 ML 999 ML IV CONT ×2 (00:19→01:33)
[2024-04-07 00:42] LABS: Influenza A QL RT-PCR Negative (Negative); Influenza B QL RT-PCR Negative (Negative); RSV RNA, RT-PCR Negative (Negative); SARS-CoV-2 RNA PCR Negative (Negative)
[2024-04-07] MEDS: AZITHROMYCIN 500 MG/NS 250 ML 500 MG/250 ML BAG 250 MG IVPB (00:45)
[2024-04-07] MEDS: VANCOMYCIN 1,250 MG/NS 250 ML 1,250 MG/250 ML BAG 166.67 MG IVPB (01:29)
--- NOTE | 2024-04-07 02:05 | PC.NURSE ---
Villarreal cath in place with scant urine noted in tube. Unable to provide ordered u/a at this time. Villarreal patent. Fluids infusing.
[2024-04-07 02:29] LABS: Reflex Lactic Acid Yes or No Add Lactic
[2024-04-07] MEDS: VANCOMYCIN 1,000 MG/NS 250 ML 1,000 MG/250 ML BAG 250 MG IVPB (03:13)
[2024-04-07 03:20] LABS: Lactic Acid 2.6 mmol/L (0.7-2.0)
[2024-04-07 03:27] LABS: MRSA (PCR) DETECTED (NOT DETECTE)
[2024-04-07 03:39] LABS: Add Urine Microscopic? YES; Appearance Urine Turbid (Clear); Bacteria Urine 4+ /hpf; Bilirubin Urine 1+ (Negative); Blood Urine 3+ (Negative); Budding Yeast Urine Present /hpf; Color Urine Dark Yellow (Yellow); Glucose Urine UA 2+ mg/dL (Negative); Hyaline Casts Urine Present /lpf; Ketones Urine Trace mg/dL (Negative); Leukocyte Esterase Ur 2+ LEU/UL (Negative); Need Manual Microscopic Reviewed; Nitrate Urine Negative (Negative); Non Pathogenic Casts >20; Protein Urine 4+ mg/dL (Negative); Specific Grav Ur 1.026 (1.001-1.035); Squamous Epithelial Cell Urine Many /hpf (Few); WBC Urine >100 /hpf (0-3)
[2024-04-07 03:41] LABS: Amorphous Sediment Urine Few
[2024-04-07] MEDS: ONDANSETRON INJ 4 MG/2 ML VIAL IV PUSH (04:07)
--- NOTE | 2024-04-07 05:00 | PM.IMHP ---
H&P: HPI History of Present Illness Date/Time: 04/07/24 05:00 Chief Complaint: Shortness of breath Narrative: This is an 88-year-old female jail resident with past medical history significant for atrial fibrillation, chronic kidney disease, chronic pain disorder, dementia of, peripheral artery disease, pulmonary hypertension. Patient recently discharged from [facility] after being treated for hyperkalemia. Was brought today to the emergency room after having episode of sustained low oxygen saturation in the 70% range. In the emergency room patient was placed on high-flow oxygen preliminary workup was significant for chest x-ray with infiltrates, elevated brain natriuretic peptide, urinary tract infection. Lengthy discussion about comfort care measures took place while patient was in the emergency room given the multiple comorbidities and organ failure. Patient has been admitted for further evaluation management and treatment. EXAMINATION: XR chest 1V portable DATE: 04/06/2024 23:01 INDICATION: Shortness of breath and hypoxia TECHNIQUE: frontal view of the chest was obtained. COMPARISON: Chest radiograph dated 03/28/2024 FINDINGS: There are patchy airspace opacities throughout both lungs relatively sparing portions of the left upper lung zone.. No pneumothorax or definitive pleural effusion. Cardiomegaly. Left pectoral implantable child monitor. Surgical clips projecting over the thoracic inlet. Vertebral plasties of a couple levels at the thoracolumbar junction. IVC filter projecting over the right side of the upper lumbar spine. IMPRESSION: 1. Patchy bilateral airspace opacities which could represent pulmonary edema, pneumonia, atelectasis or some combination thereof. 2. Cardiac medically. Review of Systems Review of Systems: ROS unobtainable: Yes unobtainable due to mental status (Stuporous) [facility] Past Medical History Medical History (Updated 04/07/24 @ 04:18 by Shanti Jaeger MD) Acute kidney failure, unspecified Afib patient had wactchman placed for a. fib approximately 2018 Chronic a-fib Chronic pain disorder CKD (chronic kidney disease), stage III Dementia Essential (primary) hypertension Fracture of knee prosthesis Heart failure with preserved ejection fraction Echo 10/2022 demonstrated grade 2 diastolic function EF 65-70% severe left atrial enlargement mild right atrial enlargement severe pulmonary hypertension RVSP 60 with moderate tricuspid regurgitation History of blood transfusion History of brain tumor History of DVT (deep vein thrombosis) HLD (hyperlipidemia) Hyperkalemia Hypertension Hypothyroidism (acquired) Lumbar spondylosis Major depressive disorder, single episode, unspecified Numbness and tingling in left hand Obesity Other fracture of right femur, initial encounter for closed fracture PAD (peripheral artery disease) Severe pulmonary hypertension Subdural hematoma (~2018) Surgical History Surgical History Brain tumor (benign) excised H/O thyroidectomy History of appendectomy History of back surgery X3 History of hip replacement Bilateral History of knee replacement History of repair of ruptured globe History of vertebroplasty Hx of right inguinal hernia repair 06/11/22 Hx of tonsillectomy Presence of Watchman left atrial appendage closure device S/P insertion of IVC (inferior vena caval) filter Status post open reduction with internal fixation of fracture Right hip Family History Family History Sibling Family history of multiple sclerosis, Onset Age: 43 Father Acute myocardial infarction Mother , age 60 Heart disease Acute myocardial infarction Social History Social History Social History: Patient is . She is residing at [facility]
--- NOTE | 2024-04-07 05:07 | ADMGEN ---
This patient, Zohreh Oakes, was admitted to 3 Med Surg Room 312-01. Patient/family oriented to hospital policies and general routines including ID bracelet, bed and alarms, visiting hours, pain management, procedures, bathroom and other care routines, personal items, smoking policy, room service/diet, and visiting hours. Information on how to activate the Rapid Response Team has been discussed. Patient/Family are encouraged to report perceived risks to care and to ask questions if they do not understand what they are told or what they should do.
[2024-04-07] MEDS: HYDROmorphone HCL INJ (*CRX) 1 MG/ML SYR IV PUSH ×2 (12:25→17:55)
--- NOTE | 2024-04-07 15:17 | P.PNCROSS_ITS ---
Event Note Event Note Event Note: Patient was seen by previous provider same day. Followed-up with patient and family at bedside and had long discussion regarding patient's overall prognosis and patient's wishes for outcomes. Patient multi-system failure, septic shock, acute respiratory failure with hypoxia and hypercapnia. Patient has had multiple admissions returning to [place] after 4 days. Family in agreement that they do not want aggressive therapy or interventions at this time and requested comfort measures only. Consult was placed for hospice care. Will continue with supplemental oxygen, Dilaudid IV push, atropine gtt, and Ativan pushes pending discharge to hospice care. Plan will be either inpatient vs outpatient hospice at [facility] however given patient current presentation her prognosis is extremely unstable and poor.
--- NOTE | 2024-04-11 09:24 | PM.DS ---
DS: Admitting Diagnosis Discharge Date 04/07/24 Admitting Diagnosis Septic shock and acute respiratory failure with hypoxia and hypercapnia DS: Discharge Diagnosis Discharge Diagnosis (1) Acute respiratory failure with hypoxia and hypercapnia: Code(s): J96.01 - Acute respiratory failure with hypoxia; J96.02 - Acute respiratory failure with hypercapnia Status: Acute (2) Acute exacerbation of chronic heart failure: Code(s): I50.9 - Heart failure, unspecified Status: Acute (3) Pneumonia: Code(s): J18.9 - Pneumonia, unspecified organism Status: Acute (4) UTI (urinary tract infection): Code(s): N39.0 - Urinary tract infection, site not specified Status: Acute (5) Acute kidney injury: Code(s): N17.9 - Acute kidney failure, unspecified Status: Acute (6) Dementia: Qualifiers: Dementia type: unspecified type Dementia severity: severe Dementia behavioral or psychological symptom: with agitation Qualified Code(s): F03.C11 - Unspecified dementia, severe, with agitation Code(s): F03.90 - Unspecified dementia, unspecified severity, without behavioral disturbance, psychotic disturbance, mood disturbance, and anxiety Status: Chronic (7) Chronic a-fib: Code(s): I48.20 - Chronic atrial fibrillation, unspecified Status: Acute (8) Chronic back pain: Code(s): M54.9 - Dorsalgia, unspecified; G89.29 - Other chronic pain Status: Acute Plan Patient with septic shock secondary to respiratory failure with hypoxia and hypercapnia family this time was requesting comfort measures and consult to hospice care. DS: Summary Hospital Course Reason for hospitalization: Septic shock and acute respiratory failure with hypoxia and hypercapnia Hospital Course: Patient was a 88-year-old female who presented to the emergency department from her [facility] facility due to septic shock and respiratory failure with hypoxia and hypercapnia. Patient has had multiple admissions in the last month with worsening condition. Patient was found to be in septic shock as well as respiratory failure long discussion was made with family regarding patient's prognosis and it was decided patient would be placed on comfort measures no aggressive treatment. Patient multi-system failure, septic shock, acute respiratory failure with hypoxia and hypercapnia. Patient has had multiple admissions returning to [place] after 4 days. Family in agreement that they do not want aggressive therapy or interventions at this time and requested comfort measures only. Consult was placed for hospice care. Will continue with supplemental oxygen, Dilaudid IV push, atropine gtt, and Ativan pushes Patient was admitted to the medical unit on comfort measures with a consult to hospice care. Patient was then discharged to inpatient hospice with vitas. Status at Discharge Functional status at discharge: bed bound Time Spent with Patient Time attestation: Total time spent providing and/or coordinating discharge services: Time spent: Greater than 30 minutes Exam Narrative: Patient is laying in bed Const: General: well developed, alert, awake, ill appearing, lethargic and edematous Nutritional Appearance: edematous Orientation/consciousness: patient oriented x3 and lethargic HENMT: Head: normal to inspection, normocephalic and atraumatic Ears: hearing grossly normal bilaterally Face/Nose/Sinus: normal facial exam Face and sinus: normal facial exam Eyes: General: appearance normal, both eyes and all related structures Pupils: Equal, round and reactive pupils present EOM: EOMs intact bilaterally Neck: Neck: full ROM, no lymphadenopathy and no JVD Thyroid: thyroid normal Lymphatic: no lymphadenopathy noted Resp: Effort & Inspection: able to speak in complete sentences Auscultation: diminished lung sounds Other: Patient is on high-flow oxygen by nasal cannul
== END 2024-04-07 22:09 | disposition hospice, inpatient (51) | DRG 871 ==
LOC: ANHED 04-07 03:39 → ANH3MEDSUR 04-07 07:22
PROVIDERS: Admitting Provider Internal Medicine; Emergency Provider Student in an Organized Health Care Education/Training Program; PCP Family Medicine; Visit Provider Nurse Practitioner Family
DX: A41.9 Sepsis, unspecified organism (principal); J96.01 Acute respiratory failure with hypoxia; R65.21 Severe sepsis with septic shock; J96.02 Acute respiratory failure with hypercapnia; I48.20 Chronic atrial fibrillation, unspecified; N17.9 Acute kidney failure, unspecified; N39.0 Urinary tract infection, site not specified; I13.0 Hypertensive heart and chronic kidney disease with heart failure and stage 1 through stage 4 chronic kidney disease, or unspecified chronic kidney disease; I50.32 Chronic diastolic (congestive) heart failure; Z51.5 Encounter for palliative care; E78.5 Hyperlipidemia, unspecified; E03.9 Hypothyroidism, unspecified; F03.90 Unspecified dementia, unspecified severity, without behavioral disturbance, psychotic disturbance, mood disturbance, and anxiety; G89.29 Other chronic pain; I25.10 Atherosclerotic heart disease of native coronary artery without angina pectoris; I48.91 Unspecified atrial fibrillation; I73.9 Peripheral vascular disease, unspecified; M54.9 Dorsalgia, unspecified; N18.30 Chronic kidney disease, stage 3 unspecified; Z99.81 Dependence on supplemental oxygen; Z79.82 Long term (current) use of aspirin; Z86.718 Personal history of other venous thrombosis and embolism; Z90.49 Acquired absence of other specified parts of digestive tract; Z90.89 Acquired absence of other organs; Z96.643 Presence of artificial hip joint, bilateral; Z66 Do not resuscitate; Z87.891 Personal history of nicotine dependence; Z22.322 Carrier or suspected carrier of Methicillin resistant Staphylococcus aureus
CPT/HCPCS: 36415; 36600; 71045; 71275; 80053; 81001; 82805; 83605; 83735; 83880; 84443; 85025; 85380; 85610; 85730; 87040; 87086; 87637; 87641; 93005; 94002; 94640; 96365; 96367; 99285; A9270; J0456; J0696; J1170; J2405; J3370; J7040; Q9967

== ENCOUNTER 2024-04-07 22:10 | HOS | payer OTHER, MEDICARE, SELFPAY ==
[2024-04-07 23:10] VITALS: PULSE 74; RESP 11
[2024-04-07] MEDS: HYDROmorphone HCL/PF (*CRX) 50 MG in SODIUM CHLORIDE 0.9% IV 95 ML IV CONT (23:10)
[2024-04-07 23:36] VITALS: RESP 11; O2SAT 90
[2024-04-08 08:00] VITALS: RESP 10; O2SAT 90
[2024-04-08 12:06] VITALS: O2SAT 94
[2024-04-08 13:26] VITALS: BP 66/24; PULSE 73; RESP 12; TEMP 36.4; O2SAT 88
--- NOTE | 2024-04-08 13:59 | PM.DS ---
DS: Admitting Diagnosis Discharge Date 04/07/2024 Admitting Diagnosis Septic shock and acute respiratory failure with hypoxia and hypercapnia DS: Discharge Diagnosis Discharge Diagnosis (1) Acute respiratory failure with hypoxia and hypercapnia: Code(s): J96.01 - Acute respiratory failure with hypoxia; J96.02 - Acute respiratory failure with hypercapnia Status: Acute (2) Septic shock: Code(s): A41.9 - Sepsis, unspecified organism; R65.21 - Severe sepsis with septic shock Status: Acute (3) UTI (urinary tract infection): Code(s): N39.0 - Urinary tract infection, site not specified Status: Acute DS: Summary Hospital Course Reason for hospitalization: Septic shock and acute respiratory failure with hypoxia and hypercapnia Hospital Course: Patient was a 88-year-old female who presented to the emergency department from her [facility] facility due to septic shock and respiratory failure with hypoxia and hypercapnia. Patient has had multiple admissions in the last month with worsening condition. Patient was found to be in septic shock as well as respiratory failure long discussion was made with family regarding patient's prognosis and it was decided patient would be placed on comfort measures no aggressive treatment. Patient multi-system failure, septic shock, acute respiratory failure with hypoxia and hypercapnia. Patient has had multiple admissions returning to [place] after 4 days. Family in agreement that they do not want aggressive therapy or interventions at this time and requested comfort measures only. Consult was placed for hospice care. Will continue with supplemental oxygen, Dilaudid IV push, atropine gtt, and Ativan pushes Patient was admitted to the medical unit on comfort measures with a consult to hospice care. Patient was then discharged to inpatient hospice with rachael. Status at Discharge Functional status at discharge: bed bound Time Spent with Patient Time attestation: Total time spent providing and/or coordinating discharge services: Time spent: Greater than 30 minutes Exam Narrative: Narrative: Patient is laying in bed Const: General: comfortab le, no acute distr ess, well develope d, ill appearing, lethargic and rachid atous Nutritional Appearance: edema tous Orientation/ consciousness: let hargic HENMT: Head: normal to in spection, normocep halic and atraumat ic Ears: hearing grossly normal terri aterally Face/Nos e/Sinus: normal fa cial exam Face an d sinus: normal fa cial exam Eyes: General: appearanc e normal, both eye s and all related structures Pupils : Equal, round and reactive pupils p resent EOM: EOMs intact bilaterally Neck: Neck: full ROM, no lymphadenopathy a nd no JVD Thyroid : thyroid normal Lymphatic: no lymp hadenopathy noted Resp: Effort & Inspectio n: normal respirat ory effort and abl e to speak in comp lete sentences Au scultation: dimini shed lung sounds Other: Patient i s on high-flow oxy gen by nasal cannu la Ca
[2024-04-08] MEDS: SCOPOLAMINE 1 MG PATCH 1 PATCH TRANSDERM (18:49)
[2024-04-08 20:00] VITALS: O2SAT 89
[2024-04-08 21:34] VITALS: BP 53/25; PULSE 91; RESP 24; TEMP 36.4; O2SAT 89
--- NOTE | 2024-04-08 23:31 | PC.NURSE ---
Pt at 2235. confirmed by myself and Haritha Cesar both RNs. Family present at bedside at time of pt's . Charge nurse made all required calls and notifications. Drip stopped and wasted with another RN.
--- NOTE | 2024-04-30 18:58 | PM.IMHP ---
H&P: HPI History of Present Illness Date/Time: 04/30/24 18:58 Chief Complaint: transfer to hospice service after been admitted with septic shock and respiratory failure. Review of Systems Review of Systems: ROS unobtainable: Yes unobtainable due to mental status (Stuporous) EENT: Additional comments: normal vision Additional comments: normal Breasts: Additional comments: normal Cardiovascular: Additional comments: tachycardia,no murmur Respiratory: Additional comments: difficulty breathing Gastrointestinal: Additional comments: no diarrhea Genitourinary: Additional comments: no frequency Musculoskeletal: Additional comments: weak Integumentary: Additional comments: no rash Neurological: Additional comments: lethargic Psychiatric: Additional comments: no history of mental illness except for depression and lately dementia Endocrine: Additional comments: hypothyroidism Hematologic/Lymphatic: Additional comments: normal Allergic/Immunologic: Additional comments: normal PMFSH Past Medical History Medical History Acute kidney failure, unspecified Afib patient had wactchman placed for a. fib approximately 2017 Chronic a-fib Chronic pain disorder CKD (chronic kidney disease), stage III Dementia Essential (primary) hypertension Fracture of knee prosthesis Heart failure with preserved ejection fraction Echo 10/2022 demonstrated grade 2 diastolic function EF 65-70% severe left atrial enlargement mild right atrial enlargement severe pulmonary hypertension RVSP 60 with moderate tricuspid regurgitation History of blood transfusion History of brain tumor History of DVT (deep vein thrombosis) HLD (hyperlipidemia) Hyperkalemia Hypertension Hypothyroidism (acquired) Lumbar spondylosis Major depressive disorder, single episode, unspecified Numbness and tingling in left hand Obesity Other fracture of right femur, initial encounter for closed fracture PAD (peripheral artery disease) Severe pulmonary hypertension Subdural hematoma (~2017) Surgical History Surgical History Brain tumor (benign) excised H/O thyroidectomy History of appendectomy History of back surgery X3 History of hip replacement Bilateral History of knee replacement History of repair of ruptured globe History of vertebroplasty Hx of right inguinal hernia repair 06/11/22 Hx of tonsillectomy Presence of Watchman left atrial appendage closure device S/P insertion of IVC (inferior vena caval) filter Status post open reduction with internal fixation of fracture Right hip Family History Family History Sibling Family history of multiple sclerosis, Onset Age: 43 Father Acute myocardial infarction Mother , age 60 Heart disease Acute myocardial infarction Social History Social History Social History: Patient is . She is residing at [facility] Code status: DNR/DNI with POLST form indicating comfort based care only (signed 10/01/23) Smoking packs per day: 0.1 Smoking cigarettes per day: 2.0 Years smoked: 15 Smoking pack-years: 1.50 Smoking status: Former smoker Second hand tobacco smoke exposure: No Additional smoking assessment comments: Pt. smoked a couple of cigarettes per week Alcohol intake: never Drinks per week: 1 Alcohol use details: STATES MAYBE 2/MONTH Substance use: never Substance use type: does not use Do You Feel Safe in your Home?: Yes Lack of Transportation: No Lack of Food: Never True Current Housing: I Have Housing Concerned About Future Housing: No Difficulty Paying Gas/Electric Bills: No Difficulty Paying for Meds: No Currently Unemployed: No Ed
--- NOTE | 2024-04-30 19:13 | PM.IMHP ---
H&P: HPI History of Present Illness Date/Time: 04/30/24 19:13 Review of Systems Review of Systems: ROS unobtainable: Yes unobtainable due to mental status (Stuporous) Constitutional: Comments: ill apperaring,lethargic Eyes: Comments: ALINA,EOM intact ENT: Comments: normal except dehydrated Cardiovascular: Comments: Regular tachycardia Respiratory: Comments: diminished breath sounds Gastrointestinal: Comments: normal Genitourinary: Comments: increased frequency Musculoskeletal: Comments: weak Integumentary/Breasts: Comments: no rash PMFSH Past Medical History Medical History Acute kidney failure, unspecified Afib patient had wactchman placed for a. fib approximately 2017 Chronic a-fib Chronic pain disorder CKD (chronic kidney disease), stage III Dementia Essential (primary) hypertension Fracture of knee prosthesis Heart failure with preserved ejection fraction Echo 10/2022 demonstrated grade 2 diastolic function EF 65-70% severe left atrial enlargement mild right atrial enlargement severe pulmonary hypertension RVSP 60 with moderate tricuspid regurgitation History of blood transfusion History of brain tumor History of DVT (deep vein thrombosis) HLD (hyperlipidemia) Hyperkalemia Hypertension Hypothyroidism (acquired) Lumbar spondylosis Major depressive disorder, single episode, unspecified Numbness and tingling in left hand Obesity Other fracture of right femur, initial encounter for closed fracture PAD (peripheral artery disease) Severe pulmonary hypertension Subdural hematoma (~2017) Surgical History Surgical History Brain tumor (benign) excised H/O thyroidectomy History of appendectomy History of back surgery X3 History of hip replacement Bilateral History of knee replacement History of repair of ruptured globe History of vertebroplasty Hx of right inguinal hernia repair 06/11/22 Hx of tonsillectomy Presence of Watchman left atrial appendage closure device S/P insertion of IVC (inferior vena caval) filter Status post open reduction with internal fixation of fracture Right hip Family History Family History Sibling Family history of multiple sclerosis, Onset Age: 43 Father Acute myocardial infarction Mother , age 60 Heart disease Acute myocardial infarction Social History Social History Social History: Patient is . She is residing at [facility] Code status: DNR/DNI with POLST form indicating comfort based care only (signed 10/01/23) Smoking packs per day: 0.1 Smoking cigarettes per day: 2.0 Years smoked: 15 Smoking pack-years: 1.50 Smoking status: Former smoker Second hand tobacco smoke exposure: No Additional smoking assessment comments: Pt. 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
--- NOTE | 2024-04-30 19:27 | PM.IMHP ---
H&P: HPI History of Present Illness Date/Time: 04/30/24 19:27 [facility] Past Medical History Medical History Acute kidney failure, unspecified Afib patient had wactchman placed for a. fib approximately 2017 Chronic a-fib Chronic pain disorder CKD (chronic kidney disease), stage III Dementia Essential (primary) hypertension Fracture of knee prosthesis Heart failure with preserved ejection fraction Echo 10/2022 demonstrated grade 2 diastolic function EF 65-70% severe left atrial enlargement mild right atrial enlargement severe pulmonary hypertension RVSP 60 with moderate tricuspid regurgitation History of blood transfusion History of brain tumor History of DVT (deep vein thrombosis) HLD (hyperlipidemia) Hyperkalemia Hypertension Hypothyroidism (acquired) Lumbar spondylosis Major depressive disorder, single episode, unspecified Numbness and tingling in left hand Obesity Other fracture of right femur, initial encounter for closed fracture PAD (peripheral artery disease) Severe pulmonary hypertension Subdural hematoma (~2017) Surgical History Surgical History Brain tumor (benign) excised H/O thyroidectomy History of appendectomy History of back surgery X3 History of hip replacement Bilateral History of knee replacement History of repair of ruptured globe History of vertebroplasty Hx of right inguinal hernia repair 06/11/22 Hx of tonsillectomy Presence of Watchman left atrial appendage closure device S/P insertion of IVC (inferior vena caval) filter Status post open reduction with internal fixation of fracture Right hip Family History Family History Sibling Family history of multiple sclerosis, Onset Age: 43 Father Acute myocardial infarction Mother , age 60 Heart disease Acute myocardial infarction Social History Social History Social History: Patient is . She is residing at [facility] Code status: DNR/DNI with POLST form indicating comfort based care only (signed 10/01/23) Smoking packs per day: 0.1 Smoking cigarettes per day: 2.0 Years smoked: 15 Smoking pack-years: 1.50 Smoking status: Former smoker Second hand tobacco smoke exposure: No Additional smoking assessment comments: Pt. 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 Gender identity (if verbalized by the patient): Female Spiritual care concerns: No Meds Home Medications and Allergies Home Medications Medication Instructions Recorded Confirmed Type aspirin 325 mg tablet 325 mg PO DAILY 08/06/19 04/07/24 History gabapentin 100 mg capsule 200 mg PO BID 08/13/21 04/07/24 History atorvastatin 10 mg tablet 10 mg PO HS #90 tabs 04/21/23 04/07/24 Rx ropinirole 4 mg tablet 4 mg PO Q12H 04/28/23 04/07/24 History furosemide 40 mg tablet 40 mg PO QAM #90 tabs 05/27/23 04/07/24 Rx ascorbic acid (vitamin C) 500 mg 500 mg PO DAILY 08/04/23 04/07/24 History tablet multivitamin,np-jmet-jvkofqoj 1 tablet PO DAILY 08/04/23 04/07/24 History venlafaxine 150 mg 150 mg PO DAILY 08/04/23 04/07/24 History capsule,extended release 24 hr albuterol sulfate 90 mcg/actuation 2 puff inhalation Q4H P
--- NOTE | 2024-04-30 19:32 | PM.DS ---
DS: Admitting Diagnosis Discharge Date 04/08/24 DS: Summary Time Spent with Patient Time attestation: Total time spent providing and/or coordinating discharge services: Discharge Plan Discharge Attending physician on discharge: Walter Grande Discharging Clinician: Ashley Muller Patient Disposition: Stand Alone Forms: General Discharge Information Discharge Medications: Discontinued gabapentin 100 mg capsule 200 mg PO BID ropinirole 4 mg tablet 4 mg PO Q12H aspirin 325 mg Tablet 325 mg PO DAILY Hold Instructions: Resume on 05/17/22. albuterol sulfate [Ventolin HFA] 90 mcg/actuation Hfa Aerosol Inhaler 2 puff INHALATION Q4H PRN (Reason: Shortness Of Breath Or Wheezing) Refresh Classic (PF) 1.4-0.6 % Dropperette 2 drp EACH EYE QID PRN (Reason: Dry Eyes) bisacodyl 10 mg Suppository 10 mg RECTAL DAILY PRN (Reason: Constipation) Rx Instructions: if no relief from MOM ferrous sulfate 325 mg (65 mg iron) Tablet 325 mg PO DAILY Entresto 24-26 mg Tablet 1 tablet PO Q12HR Qty: 60 0RF ascorbic acid (vitamin C) 500 mg Tablet 500 mg PO DAILY multivitamin,ae-vdtw-vgqvnqya Tablet 1 tablet PO DAILY venlafaxine 150 mg capsule,extended release 24hr 150 mg PO DAILY Rx Instructions: Combined 225 mg dose daily Jardiance 10 mg Tablet 10 mg PO DAILY Qty: 30 0RF haloperidol 1 mg tablet 1 mg PO HS Xiidra 5 % dropperette 1 drp EACH EYE BID acetaminophen 325 mg Tablet 650 mg PO Q6H PRN (Reason: Pain) cyanocobalamin (vitamin B-12) 500 mcg Tablet 500 mcg PO DAILY gabapentin 100 mg capsule 300 mg PO HS venlafaxine 75 mg capsule,extended release 24hr 75 mg PO DAILY Rx Instructions: take with 150mg dose for total of 225mg once a day magnesium hydroxide [Milk of Magnesia] 400 mg/5 mL Suspension 30 ml PO HS PRN (Reason: Constipation) melatonin 5 mg Tablet 5 mg PO HS polyethylene glycol 3350 [Miralax] 17 gram powder in packet 17 g PO DAILY PRN (Reason: Constipation) hydrocodone-acetaminophen 10-325 mg tablet 1 tablet PO BID hydrocodone-acetaminophen 10-325 mg tablet 1 tablet PO Q6H PRN (Reason: Pain) tolnaftate 1 % Powder 1 applic topical Q12HR Qty: 45 0RF Rx Instructions: apply to groin and skin folds atorvastatin 10 mg tablet 10 mg PO HS Qty: 90 0RF furosemide 40 mg tablet 40 mg PO QAM Qty: 90 1RF Date of admission: 04/07/24 22:10 Primary Care Provider: Micah Antoine Admitting Provider: Ronny Mejia Attending physician on admission: Ronny Mejia Condition: Terminal
--- NOTE | 2024-05-02 15:35 | PM.IMHP ---
H&P: HPI History of Present Illness Date/Time: 04/07/2024 15:35 Chief Complaint: transfer yo hospice service Review of Systems Review of Systems: patient lethargic and unresposive due to septi shock and respiratory failure [facility] Past Medical History Medical History Acute kidney failure, unspecified Afib patient had wactchman placed for a. fib approximately 2017 Chronic a-fib Chronic pain disorder CKD (chronic kidney disease), stage III Dementia Essential (primary) hypertension Fracture of knee prosthesis Heart failure with preserved ejection fraction Echo 10/2022 demonstrated grade 2 diastolic function EF 65-70% severe left atrial enlargement mild right atrial enlargement severe pulmonary hypertension RVSP 60 with moderate tricuspid regurgitation History of blood transfusion History of brain tumor History of DVT (deep vein thrombosis) HLD (hyperlipidemia) Hyperkalemia Hypertension Hypothyroidism (acquired) Lumbar spondylosis Major depressive disorder, single episode, unspecified Numbness and tingling in left hand Obesity Other fracture of right femur, initial encounter for closed fracture PAD (peripheral artery disease) Severe pulmonary hypertension Subdural hematoma (~2017) Surgical History Surgical History Brain tumor (benign) excised H/O thyroidectomy History of appendectomy History of back surgery X3 History of hip replacement Bilateral History of knee replacement History of repair of ruptured globe History of vertebroplasty Hx of right inguinal hernia repair 06/11/22 Hx of tonsillectomy Presence of Watchman left atrial appendage closure device S/P insertion of IVC (inferior vena caval) filter Status post open reduction with internal fixation of fracture Right hip Family History Family History Sibling Family history of multiple sclerosis, Onset Age: 43 Father Acute myocardial infarction Mother , age 60 Heart disease Acute myocardial infarction Social History Social History Social History: Patient is . She is residing at [facility] Code status: DNR/DNI with POLST form indicating comfort based care only (signed 10/01/23) Smoking packs per day: 0.1 Smoking cigarettes per day: 2.0 Years smoked: 15 Smoking pack-years: 1.50 Smoking status: Former smoker Second hand tobacco smoke exposure: No Additional smoking assessment comments: Pt. 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 Gender identity (if verbalized by the patient): Female Spiritual care concerns: No Meds Home Medications and Allergies Home Medications Medication Instructions Recorded Confirmed Type aspirin 325 mg tablet 325 mg PO DAILY 08/06/19 04/07/24 History gabapentin 100 mg capsule 200 mg PO BID 08/13/21 04/07/24 History atorvastatin 10 mg tablet 10 mg PO HS #90 tabs 04/21/23 04/07/24 Rx ropinirole 4 mg tablet 4 mg PO Q12H 04/28/23 04/07/24 History furosemide 40 mg tablet 40 mg PO QAM #90 tabs 05/27/23 04/07/24 Rx ascorbic acid (vitamin C) 500 mg 500 mg PO DAILY 08/04/23 04/07/24 History tablet multivitamin,zl-cyay-pvyeiass 1 tablet PO DAILY 08/04/23
--- NOTE | 2024-05-02 15:45 | P.DN_ITS ---
Discharge Summary Date and Time Date of : 04/08/24 Time of : 22:36 Provider Pronounced By: 2 RNs Name of First RN That Pronounced: Abigail Cesar Name of Second RN That Pronounced: [place]ri [place] Probable Cause of Probable Cause of : Respiratory Failure with hypoxia and hypercapnea Septic Shock Urinary tract Infection Summary Hospital Course: Patient tranfer to hospice service and within 24 hours patient declared Additional Data Confirmation of as documented by pronouncing clinician: Palpable Pulses, Response to Stimuli, Heart Tones and Breath Sounds Name of Provider Notified: Ronny Sarah Time Provider Notified: 22:48 Provider Requests Autopsy: No Family Requests Autopsy: No [employer] Operator Notified: Yes Date [facility] Notified of : 04/08/24 Time [facility] Notified of : 22:48
== END 2024-04-08 22:36 | disposition expired | DRG 951 ==
PROVIDERS: Admitting Provider Internal Medicine Pulmonary Disease; PCP Family Medicine; Visit Provider Internal Medicine Pulmonary Disease
DX: Z51.5 Encounter for palliative care (principal); A41.9 Sepsis, unspecified organism; R65.21 Severe sepsis with septic shock; J96.01 Acute respiratory failure with hypoxia; J96.02 Acute respiratory failure with hypercapnia; N39.0 Urinary tract infection, site not specified
CPT/HCPCS: A9270; J1170